=== PATIENT | male | born 1970 | race Hispanic/Latino ===

== ENCOUNTER 2018-02-16 09:40 | Inpatient (IN) | payer SELFPAY ==
[2018-02-16 10:47] LABS: Absolute Monocytes 0.9 K/uL (0.1-1.3); Absolute Neutrophil 6.8 K/uL (1.8-8.0); Basophils % 0.4 % (0-1.3); Eosinophils % 3.9 % (0-4.4); Lymphocytes % 19.6 % (15.3-44.8); MCH 33.9 pg (27.0-35.0); MCV 101.2 fL (80-100); Monocytes % 8.6 % (3.3-12.3)
--- NOTE | 2018-02-16 10:54 | RAD REPORT ---
EXAM DESCRIPTION: VASExtremity Venous Uni Ltd02/16/2018 10:47 am CLINICAL HISTORY: left leg pain and swelling. COMPARISON: 2009 FINDINGS: Echogenic material consistent with acute thrombus is present within the proximal left supe rficial femoral vein, left popliteal vein and left posterior tibial vein. Left common femoral vein is patent. IMPRESSION: Acute thrombus within the left superficial femoral, left popliteal left posterior tibial veins
[2018-02-16] MEDS ORDERED: MORPHINE 4 MG/ML SYR ONE (10:58)
[2018-02-16] MEDS ORDERED: ONDANSETRON 4 MG/2 ML VIAL ONE (10:58)
[2018-02-16 11:03] LABS: BUN Blood Urea Nitrogen 10 mg/dL (7-18); Bicarbonate 32 mmol/L (21-32); Creatine Phosphokinase 39 U/L (39-308); Glucose Level 115 mg/dL (74-106); Potassium 4.1 mmol/L (3.5-5.1); Sodium Level 139 mmol/L (136-145)
[2018-02-16 11:14] LABS: Hematocrit 60.7 % (39.6-49.0)
--- NOTE | 2018-02-16 11:26 | ER ---
Nurse's Notes [facility] Name: Dwayne Walker Jr Age: 47 yrs Sex: Male : 1970 Arrival Date: 02/16/2018 Time: 09:43 Bed 17 Private MD: Sophy Beckett Diagnosis: Acute embolism and thrombosis of left popliteal vein;Acute embolism and thrombosis of left femoral vein Presentation: 02/16 10:10 Presenting complaint: Patient states: "I have had a pain in my left leg that started in lk1 my calf for a week now. Its not getting any better. It feels like I am not getting any circulation.". Transition of care: patient was not received from another setting of care. Onset of symptoms was February 09, 2018. Risk Assessment: Do you want to hurt yourself or someone else? Patient reports no desire to harm self or others. Initial Sepsis Screen: Does the patient meet any 2 criteria? HR > 90 bpm. No. Patient's initial sepsis screen is negative. Does the patient have a suspected source of infection? No. Patient's initial sepsis screen is negative. Care prior to arrival: None. 10:10 Method Of Arrival: Wheelchair lk1 10:10 Acuity: FÉLIX 3 lk1 Historical: - Allergies: 10:11 No Known Allergies; lk1 - PMHx: 10:11 Hypertension; Chronic pain; lk1 - PSHx: 10:11 back; left leg; bilateral hips; lk1 - Immunization history:: Adult Immunizations up to date. - Social history:: Smoking status: Patient/guardian denies using tobacco. - Ebola Screening: : Patient negative for fever greater than or equal to 101.5 degrees Fahrenheit, and additional compatible Ebola Virus Disease symptoms Patient denies exposure to infectious person Patient denies travel to an Ebola-affected area in the 21 days before illness onset No symptoms or risks identified at this time. Screenin:00 Abuse screen: Denies threats or abuse. Denies injuries from another. Nutritional hb screening: No deficits noted. Tuberculosis screening: No symptoms or risk factors identified. Fall Risk None identified. Assessment: 10:20 General: Appears in no apparent distress. uncomfortable, Behavior is calm, cooperative. hb Pain: Pain currently is 10 out of 10 on a pain scale. Neuro: Level of Consciousness is awake, alert, obeys commands, Oriented to person, place, time, situation. Cardiovascular: Heart tones S1 S2 present Capillary refill < 3 seconds Patient's skin is warm and dry. Pulses are palpable in right dorsalis pedis artery and left dorsalis pedis artery. Respiratory: Airway is patent Trachea midline Respiratory effort is even, unlabored, Respiratory pattern is regular, symmetrical, Breath sounds are clear bilaterally. GI: No signs and/or symptoms were reported involving the gastrointestinal system. : No signs and/or symptoms were reported regarding the genitourinary system. EENT: No signs and/or symptoms were reported regarding the EENT system. Derm: No signs and/or symptoms reported regarding the dermatologic system. Skin is intact, is healthy with good turgor, Skin is pink, warm \\T\\ dry. Musculoskeletal: Reports pain in left leg. 11:00 Reassessment: Patient appears in no apparent distress at this time. No changes from hb previously documented assessment. Patient and/or family updated on plan of care and expected duration. Pain level reassessed. Patient is alert, oriented x 3, equal unlabored respirations, skin warm/dry/pink. 12:00 Reassessment: Patient appears in no apparent distress at this time. No changes from hb previously documented assessment. Patient and/or family updated on plan of care and expected duration. Pain level reassessed. Patient is alert, oriented x 3, equal unlabored respirations, skin warm/dry/pink. 13:00 Reassessment: Patient appears in no apparent distress at this time. No changes from hb previously documented assessment. Patient and/or family updated on plan of care and expected duration. Pain level reassessed. Patient is alert, oriented x 3, equal unlabored respirations, skin warm/dry/pink. Vital Signs: 10:12 BP 181 / 123; Pulse 109; Resp 20; Temp 97.2(TE); Pulse Ox 95% on R/A; Weight 77.11 kg lk1 (R); Height 5 ft. 8 in. (172.72 cm) (R); Pain 7/10; 10:48 BP 140 / 97; Pulse 99; Resp 17; Pulse Ox 94% on R/A; hb 11:30 BP 142 / 92; Pulse 88; Resp 18; Pulse Ox 100% on R/A; hb 12:00 BP 168 / 88; Pulse 80; Resp 16; Pulse Ox 100% on R/A; hb 13:00 BP 156 / 94; Pulse 82; Resp 17; Pulse Ox 100% on R/A; hb 10:12 Body Mass Index 25.85 (77.11 kg, 172.72 cm) lk1 ED Course: 09:43 Patient arrived in ED. mr 09:43 Oot, Oot is Private Physician. mr 10:03 Nash Jacinto PA is PHCP. jr8 10:03 Tank Boswell MD is Attending Physician. jr8 10:11 Triage completed. lk1 10:12 Arm band placed on right wrist. lk1 10:17 Claritza Diaz, RN is Primary Nurse. hb 10:35 Patient has correct armband on for positive identification. Bed in low position. Call 5 light in reach. Side rails up X 1. Pulse ox on. NIBP on. 10:35 Initial lab(s) drawn, by mo, sent to lab. Inserted saline lock: 20 gauge in right 5 antecubital area, using aseptic technique. Blood collected. 10:36 CPK Sent. mh5 10:36 Protime (+inr) Sent. mh5 10:36 Basic Metabolic Panel Sent. 5 10:36 CBC with Diff Sent. mh5 10:46 US Extremity Venous Unilateral Ltd In Process Unspecified. EDMS 11:24 Linn Alonzo MD is Hospitalizing Provider. jr8 11:39 CT completed. Patient moved back from CT. mw3 11:39 CT Chest For PE Angio In Process Unspecified. EDMS 13:45 No provider procedures requiring assistance completed. hb 13:45 Patient admitted, IV remains in place. hb Administered Medications: 11:02 Drug: morphine 4 mg Route: IVP; Site: right antecubital; hb 12:07 Follow up: Response: No adverse reaction; Pain is decreased hj 11:02 Drug: Zofran 4 mg Route: IVP; Site: right antecubital; hb 12:06 Follow up: Response: No adverse reaction; Nausea is decreased hj 11:57 Drug: Lovenox 1 mg/kg Route: Sub-Q; Site: right lower abdomen; hj 12:06 Follow up: Response: No adverse reaction hj Outcome: 11:25 Decision to Hospitalize by Provider. jr8 13:45 Admitted to Med/surg accompanied by tech, via stretcher, room 212, with chart, Report hb called to CARLO Medina 13:45 Condition: stable 13:45 Instructed on the need for admit, Demonstrated understanding of instructions. 14:01 Patient left the ED. hb Signatures: Dispatcher [employer] Gypsy Dubon mr Ophelia, Nash, VIRA CONSTANTINO jr8 Mac Diane RN RN hj Kluge, Leah, RN RN lk1 Claritza Diaz RN RN hb Martinez, [facility] Mitali Dexter 3
--- NOTE | 2018-02-16 11:26 | EDPHYS ---
Physician Documentation [facility] Name: Dwayne Walker Jr Age: 47 yrs Sex: Male : 1970 Arrival Date: 02/16/2018 Time: 09:43 Bed 17 Private MD: Sophy Beckett ED Physician Tank Boswell HPI: 02/16 11:22 This 47 yrs old Male presents to ER via Wheelchair with complaints of Leg Pain.jr8 11:22 The complaints affect the left hamstring and left calf. Onset: The symptoms/episode jr8 began/occurred gradually, 1 week(s) ago, and became worse and became persistent. Modifying factors: The symptoms are alleviated by elevating leg, the symptoms are aggravated by weight bearing. Associated signs and symptoms: The patient has no apparent associated signs or symptoms. Severity of symptoms: At their worst the symptoms were moderate, in the emergency department the symptoms are unchanged. The patient has not experienced similar symptoms in the past. The patient has not recently seen a physician. Historical: - Allergies: 10:11 No Known Allergies; lk1 - PMHx: 10:11 Hypertension; Chronic pain; lk1 - PSHx: 10:11 back; left leg; bilateral hips; lk1 - Immunization history:: Adult Immunizations up to date. - Social history:: Smoking status: Patient/guardian denies using tobacco. - Ebola Screening: : Patient negative for fever greater than or equal to 101.5 degrees Fahrenheit, and additional compatible Ebola Virus Disease symptoms Patient denies exposure to infectious person Patient denies travel to an Ebola-affected area in the 21 days before illness onset No symptoms or risks identified at this time. ROS: 11:22 ENT: Negative for injury, pain, and discharge, Neck: Negative for injury, pain, and jr8 swelling, Cardiovascular: Negative for chest pain, palpitations, and edema, Respiratory: Negative for shortness of breath, cough, wheezing, and pleuritic chest pain, Abdomen/GI: Negative for abdominal pain, nausea, vomiting, diarrhea, and constipation, Back: Negative for injury and pain, Skin: Negative for injury, rash, and discoloration, Neuro: Negative for headache, weakness, numbness, tingling, and seizure. 11:22 MS/extremity: Positive for pain, swelling, tenderness, of the left leg. Exam: 11:22 Eyes: Pupils equal round and reactive to light, extra-ocular motions intact. Lids and jr8 lashes normal. Conjunctiva and sclera are non-icteric and not injected. Cornea within normal limits. Periorbital areas with no swelling, redness, or edema. ENT: Nares patent. No nasal discharge, no septal abnormalities noted. Tympanic membranes are normal and external auditory canals are clear. Oropharynx with no redness, swelling, or masses, exudates, or evidence of obstruction, uvula midline. Mucous membranes moist. Neck: Trachea midline, no thyromegaly or masses palpated, and no cervical lymphadenopathy. Supple, full range of motion without nuchal rigidity, or vertebral point tenderness. No Meningismus. Cardiovascular: Regular rate and rhythm with a normal S1 and S2. No gallops, murmurs, or rubs. Normal PMI, no JVD. No pulse deficits. Respiratory: Lungs have equal breath sounds bilaterally, clear to auscultation and percussion. No rales, rhonchi or wheezes noted. No increased work of breathing, no retractions or nasal flaring. Abdomen/GI: Soft, non-tender, with normal bowel sounds. No distension or tympany. No guarding or rebound. No evidence of tenderness throughout. Back: No spinal tenderness. No costovertebral tenderness. Full range of motion. Skin: Warm, dry with normal turgor. Normal color with no rashes, no lesions, and no evidence of cellulitis. Neuro: Awake and alert, GCS 15, oriented to person, place, time, and situation. Cranial nerves II-XII grossly intact. Motor strength 5/5 in all extremities. Sensory grossly intact. Cerebellar exam normal. Normal gait. 11:22 Musculoskeletal/extremity: Extremities: grossly normal except: noted in the left calf: pain, swelling, tenderness, ROM: intact in all extremities, Circulation is intact in all extremities. Pulses: noted to be 2+ in the right radial artery, right posterior tibial artery, right dorsalis pedis artery, left radial artery, left posterior tibial artery and left dorsalis pedis artery, Sensation intact. DVT Exam: pain, of the left leg, swelling, of the left leg, tenderness, of the left leg, Calves: are not equal in size: left is larger than right. 12:10 ECG was reviewed by the Attending Physician. jr8 Vital Signs: 10:12 BP 181 / 123; Pulse 109; Resp 20; Temp 97.2(TE); Pulse Ox 95% on R/A; Weight 77.11 kg lk1 (R); Height 5 ft. 8 in. (172.72 cm) (R); Pain 7/10; 10:48 BP 140 / 97; Pulse 99; Resp 17; Pulse Ox 94% on R/A; hb 11:30 BP 142 / 92; Pulse 88; Resp 18; Pulse Ox 100% on R/A; hb 12:00 BP 168 / 88; Pulse 80; Resp 16; Pulse Ox 100% on R/A; hb 13:00 BP 156 / 94; Pulse 82; Resp 17; Pulse Ox 100% on R/A; hb 10:12 Body Mass Index 25.85 (77.11 kg, 172.72 cm) lk1 MDM: 10:03 Patient medically screened. 8 11:22 Data reviewed: vital signs, nurses notes, lab test result(s), EKG, radiologic studies, jr8 CT scan, and as a result, I will admit patient. Data interpreted: Pulse oximetry: on room air is 94 %. Interpretation: acceptable. Counseling: I had a detailed discussion with the patient and/or guardian regarding: the historical points, exam findings, and any diagnostic results supporting the discharge/admit diagnosis, lab results, radiology results, the need for further work-up and treatment in the hospital. Physician consultation: Linn Alonzo MD was called at 11:24, was contacted at 11:24, regarding admission, to the telemetry unit. consult, patient's condition, and will see patient. 02/16 10:17 Order name: CBC with Diff; Complete Time: 11:14 8 02/16 10:17 Order name: Basic Metabolic Panel; Complete Time: 11:14 [facility] 02/16 10:17 Order name: Protime (+inr); Complete Time: 11:41 8 02/16 10:17 Order name: CPK; Complete Time: 11:14 [facility] 02/16 11:48 Order name: Basic Metabolic Panel EDID 02/16 11:48 Order name: Basic Metabolic Panel [facility] 02/16 10:19 Order name: US Extremity Venous Unilateral Ltd; Complete Time: 10:58 02/16 10:57 Order name: CT Chest For PE Angio; Complete Time: 11:54 [facility] 02/16 11:48 Order name: CBC with Automated Diff EDID 02/16 11:48 Order name: CBC with Automated Diff EDID 02/16 11:48 Order name: Protime (+INR) EDMS 02/16 11:48 Order name: Protime (+INR) EDID 02/16 11:48 Order name: Protime (+INR) EDID 02/16 11:48 Order name: Protime (+INR) EDID 02/16 10:17 Order name: IV; Complete Time: 10:36 [facility] 02/16 11:10 Order name: Labs - recollect needed; Complete Time: 11:19 ag 02/16 11:30 Order name: EKG; Complete Time: 11:31 [facility] 02/16 11:30 Order name: EKG - Nurse/Tech; Complete Time: 12:02 [facility] 02/16 11:48 Order name: Heart Healthy; Complete Time: 12:02 EDMS EC:10 Rate is 90 beats/min. Rhythm is regular, Normal Sinus Rhythm. QRS [place] is Normal. [place] jr8 interval is normal at 142 msec. QRS interval is normal at 88 msec. QT interval is prolonged at 459 msec. No Q waves. T waves are Flattened in lead III. No ST changes noted. Clinical impression: NSR w/ Non-specific ST/T Changes. Interpreted by me. Reviewed by me. Administered Medications: 11:02 Drug: morphine 4 mg Route: IVP; Site: right antecubital; hb 12:07 Follow up: Response: No adverse reaction; Pain is decreased hj 11:02 Drug: Zofran 4 mg Route: IVP; Site: right antecubital; hb 12:06 Follow up: Response: No adverse reaction; Nausea is decreased hj 11:57 Drug: Lovenox 1 mg/kg Route: Sub-Q; Site: right lower abdomen; hj 12:06 Follow up: Response: No adverse reaction hj Disposition: 02/16/18 11:25 Hospitalization ordered by Linn Alonzo for Inpatient Admission. Preliminary diagnosis are Acute embolism and thrombosis of left popliteal vein, Acute embolism and thrombosis of left femoral vein. - Bed requested for Telemetry/MedSurg (Inpatient). - Status is Inpatient Admission. hb - Condition is Stable. - Problem is new. - Symptoms have improved. UTI on Admission? No Addendum: 02/23/2018 11:22 Co-signature as Attending Physician, Tank Boswell MD I agree with the assessment and k dr plan of care. Signatures: Dispatcher [employer] EDMS Tank Boswell MD MD [facility] Nash Jacinto PA PA jr8 GaSofi ag Mac Diane, RN RN Gely Pino RN RN 1 Claritza Diaz RN RN hb Corrections: (The following items were deleted from the chart) 02/16 13:18 11:25 Hospitalization Ordered by Linn Alonzo MD for Inpatient Admission. Preliminary ag diagnosis is Acute embolism and thrombosis of left popliteal vein; Acute embolism and thrombosis of left femoral vein. Bed requested for Telemetry/MedSurg (Inpatient). Status is Inpatient Admission. Condition is Stable. Problem is new. Symptoms have improved. UTI on Admission? No. jr8 14:01 13:18 02/16/2018 11:25 Hospitalization Ordered by Linn Alonzo MD for Inpatient hb Admission. Preliminary diagnosis is Acute embolism and thrombosis of left popliteal vein; Acute embolism and thrombosis of left femoral vein. Bed requested for Telemetry/MedSurg (Inpatient). Status is Inpatient Admission. Condition is Stable. Problem is new. Symptoms have improved. UTI on Admission? No. ag
[2018-02-16 11:38] LABS: Protime INR 1.11
[2018-02-16] MEDS ORDERED: HYDROCODONE/APAP 7.5/325 MG TAB PO PRN (11:45)
[2018-02-16] MEDS ORDERED: ACETAMINOPHEN 500 MG TAB PO PRN (11:45)
[2018-02-16] MEDS ORDERED: ONDANSETRON 4 MG/2 ML VIAL IV PRN (11:45)
--- NOTE | 2018-02-16 11:52 | RAD REPORT ---
EXAM DESCRIPTION: CT - Chest For Pe Angio - 02/16/2018 11:39 am CLINICAL HISTORY: Chest pain COMPARISON: None. TECHNIQUE: Dynamically enhanced axial 3 mm thick images of the chest were obtained during administra tion of <100> mL Isovue 370 IV contrast. Coronal and oblique reconstruction images were generated and reviewed. Exam utilizes a protocol for optimal evaluation of pulmonary arterial tree. Maximum intensity projections 3D imaging was utilized All CT scans are performed using dose optimization technique as appropriate and may include automated exposure control or mA/KV adjustment according to patient size. FINDINGS: Thrombus is present within right lower lobe segmental and subsegmental arterial branches. No thrombus is seen within the main, left main, right main and left pulmonary arteries. A thoracic aortic aneurysm is not noted. A pleural effusion is not seen. A pericardial effusion is not seen. A 29 x 12 millimeter opacity is present within the right lower lobe abutting the pleural surface. IMPRESSION: Right lower lobe pulmonary emboli 29 millimeter right lower lobe opacity may represent an infarct
[2018-02-16] MEDS: NA CHLORIDE 0.9% 1,000 ML IV SCH ×2 (12:00→23:24)
[2018-02-16] MEDS ORDERED: ENOXAPARIN 80 MG/0.8 ML SQ ONE (12:05)
[2018-02-16 14:47] VITALS: BMI 25.8
[2018-02-16] MEDS ORDERED: OXYCODONE HCL 15 MG PO PRN (15:26)
[2018-02-16 15:53] LABS: Hematocrit 56.5 % (39.6-49.0)
[2018-02-16] MEDS: LISINOPRIL 20 MG TAB PO SCH (16:48)
[2018-02-16] MEDS: GABAPENTIN 400 MG CAP PO SCH ×2 (16:49→21:27)
[2018-02-16] MEDS: OXYCODONE HCL 5 MG TAB PO PRN ×2 (16:49→23:21)
[2018-02-16] MEDS ORDERED: FOLIC ACID 1 MG TABLET PO ONE (17:00)
[2018-02-16] MEDS ORDERED: THIAMINE HCL 100 MG TABLET PO ONE (17:00)
[2018-02-16] MEDS ORDERED: GABAPENTIN 400 MG CAP PO SCH (21:00)
[2018-02-16] MEDS ORDERED: HOME MED 1 EA UNK (Gabapentin [Gabapentin] 800 MG) PO SCH (21:00)
[2018-02-16] MEDS: ENOXAPARIN 80 MG/0.8 ML SQ SCH (21:28)
[2018-02-16] MEDS: CARVEDILOL 6.25 MG TAB PO SCH (21:28)
--- NOTE | 2018-02-17 01:42 | HP ---
Date of Admission: 02/16/2018 Chief Complaint: Left leg pain and shortness of breath. Machining Engineer: Dr. Morales with Pulmonology. Primary Care Physician: None. History Of Present Illness: The patient is a 47-year-old male with past medical history of hypertens ion, neuropathy, chronic pain syndrome from work-related accident in 2008, who comes in with 1-/2 we ek of left leg calf pain, redness, swelling that traveled up to his thigh related with some shortness of breath. The patient's symptoms are constant, moderate, progressively worsening. He denies any a lleviating factors. The patient's pain was aggravated with walking. The patient finally after much deliberation and encouragement by his friends, came to the ER for further evaluation. When the patie nt came in, his vital signs were stable. He was afebrile. His workup; however, revealed hemoglobin of 20, hematocrit of 60. Imaging studies including Doppler venous ultrasound showed acute thrombus w ithin the left superficial femoral and left popliteal and left posterior tibial veins. CT angio ches t was also done which showed right lower lobe pulmonary emboli and 29 mm right lower lobe opacity may represent infarct. The patient was referred for admission for deep venous thrombosis and PE. When s een in the ER, he was awake, alert, oriented x3, in some mild distress due to pain. Past Medical History: Hypertension, chronic pain syndrome, neuropathy. Past Surgical History: The patient had surgery in his hip, back and left leg due to trauma after 25 feet fall from work related injury in 2008. Allergies: NO KNOWN DRUG ALLERGIES. Medications: List reviewed. Social History: The patient smokes approximately 1 pack per week. Drinks 2 shots of liquor every ot her day. Denies any beer. No illicit drug use. Family History: Diabetes, congestive heart failure in the father and mom had high blood pressure and [place]. Review of Systems: Eleven-point system reviewed, negative except as per HPI. Physical Examination: Vital Signs: Temperature 97.2, heart rate 109, blood pressure 181/123, respirations 20, O2 95% on ro om air. General: Awake, alert, oriented x3. Some mild distress. HEENT: Normocephalic, atraumatic. PERRLA. EOMI. Moist mucous membranes. Oropharynx is clear. No rmal dentition. Conjunctivae anicteric. Neck: Supple. No JVD. Trachea midline. CV: S1, S2. No murmurs. Regular rate and rhythm. Peripheral pulses are present. Respiratory: Clear to auscultation bilaterally. Some diminished breath sounds on the right lower lo be. No wheezing. No stridor. No use of accessory muscles. Gastrointestinal: Abdomen is soft, nontender, nondistended. Positive bowel sounds. No guarding or rigidity. No palpable masses. Extremities: No clubbing, cyanosis or edema. No calf tenderness. Neurologic: Cranial nerves 2 through 12 intact grossly. No focal neurological deficit. Speech is n ormal. Skin: No rashes. Normal skin turgor. Musculoskeletal: The patient does have some tenderness on the left thigh area and calf. Psych: Mood is okay. Affect is full. Insight and judgment are good. Laboratory Data: WBC 10.1, H and H 20.3, 60.7, platelets 264. INR 1.11. Sodium 139, potassium 4.1, chloride 102, CO2 32, BUN 10, creatinine 0.8, glucose 115, calcium 9.1, CK 39. CT angio chest shows right lower lobe pulmonary emboli, 29 mm right lower lobe opacity, may represent infarct. Doppler s onogram shows acute thrombus within the left superficial femoral, popliteal and posterior tibial vein s. Assessment: A 47-year-old male with, 1.Acute right pulmonary embolism. 2.Acute deep venous thrombosis in the superficial femoral, popliteal, and posterior tibial veins. 3.Essential hypertension. 4.Chronic pain syndrome. 5.Neuropathy. Plan: Admit the patient to Med-Surg, place as inpatient. We will start on anticoagulation with 1 mg /kg Lovenox q.12, placed on Coumadin. The patient is uninsured, will likely not be able to take anti coagulants due to financial reasons. We will consult Dr. Morales with Pulmonology. We will obtain echocardiogram to rule out RV strain, likely this is a provoked event given the patient's history of trauma to that leg; however, we will consider Hematology evaluation as outpatient to rule out hyperco agulable state. The patient also has alcohol dependence. We will start on thiamine and folate. Karen ch for signs of withdrawal. We will repeat hemoglobin, hematocrit level, start on IV fluids. SA/MODL Voice ID: [id number]
[2018-02-17 05:47] LABS: Absolute Lymphocytes (CBC) 2.1 K/uL (0.7-4.9); Absolute Monocytes 0.7 K/uL (0.1-1.3); Absolute Neutrophil 4.5 K/uL (1.8-8.0); Basophils % 1.1 % (0-1.3); Eosinophils % 8.3 % (0-4.4); Hematocrit 52.3 % (39.6-49.0); Lymphocytes % 26.2 % (15.3-44.8); MCH 34.1 pg (27.0-35.0); MCV 103.2 fL (80-100); MPV 8.1 fL (7.6-11.3); Monocytes % 8.9 % (3.3-12.3); RBC Red Blood Cell Count 5.07 M/uL (4.33-5.43)
[2018-02-17 05:49] LABS: Protime INR 1.09
[2018-02-17 06:04] LABS: BUN Blood Urea Nitrogen 9 mg/dL (7-18); Bicarbonate 25 mmol/L (21-32); Glucose Level 93 mg/dL (74-106); Potassium 4.1 mmol/L (3.5-5.1); Sodium Level 140 mmol/L (136-145)
--- NOTE | 2018-02-17 06:26 | EKG ---
Test Date: 2018-02-16 Test Time: 12:01:40 Capacity Planning Analyst: BRIANA MEASUREMENT RESULTS: Intervals: Rate: 90 KS: 142 QRSD: 88 QT: 376 QTc: 459 [place]: P: 28 KS: 142 QRS: -9 T: 14 INTERPRETIVE STATEMENTS: Normal sinus rhythm Moderate voltage criteria for LVH, may be normal variant Borderline ECG Compared to ECG 11/04/2004 09:20:00 Left ventricular hypertrophy now present Electronically Signed On 02-17-18 06:25:36 CDT by Sundar Santos
[2018-02-17] MEDS: GABAPENTIN 400 MG CAP PO SCH ×3 (08:27→21:28)
[2018-02-17] MEDS: OXYCODONE HCL 5 MG TAB PO PRN ×3 (08:29→21:28)
[2018-02-17] MEDS: FOLIC ACID 1 MG TABLET PO SCH (08:29)
[2018-02-17] MEDS: LISINOPRIL 20 MG TAB PO SCH (08:29)
[2018-02-17] MEDS: THIAMINE HCL 100 MG TABLET PO SCH (08:30)
[2018-02-17] MEDS: ENOXAPARIN 80 MG/0.8 ML SQ SCH ×2 (08:31→21:27)
[2018-02-17] MEDS: CARVEDILOL 6.25 MG TAB PO SCH (08:34)
[2018-02-17] MEDS ORDERED: LABETALOL HCL 100 MG/20 ML IV PRN (10:03)
[2018-02-17] MEDS: NA CHLORIDE 0.9% 1,000 ML IV SCH ×3 (10:36→21:30)
--- NOTE | 2018-02-17 12:21 | PN ---
Date of Progress Note: 02/17/2018 Subjective: The patient is seen and examined. Chart reviewed and case discussed with RN and Dr. Dra landis. The patient states he is still having pain in his lower extremity. Shortness of breath has improved. Review of Systems: Negative except as above. Medications: List reviewed. Physical Examination: Vital Signs: Temperature 97.6, heart rate 78, blood pressure 152/104, respirations 18, O2 97% on maria c m air. General: Awake, alert, oriented x3. CV: S1, S2. No murmurs. Regular rate and rhythm. Peripheral pulses present. Respiratory: Clear to auscultation bilaterally. No wheezing. No stridor. Gastrointestinal: Abdomen is soft, nontender. Positive bowel sounds. Distended. Extremities: No clubbing, cyanosis. Mild edema of the left lower extremity. Neurologic: Nonfocal. Skin: Erythema and swelling of the left lower extremity. Mild tenderness to palpation. Laboratory Data: Sodium 140, potassium 4.1, chloride 105, CO2 25, BUN 9, creatinine 0.5, glucose 93, calcium 8. INR 1.09. WBC 8.2, H and H 17.3 and 52.4, MCV 103.2, platelets 241. Assessment And Plan: A 47-year-old male with: 1.Right-sided pulmonary embolism. 2.Acute deep venous thrombosis in the superficial, femoral, popliteal, and posterior tibial veins on the left. 3.Essential hypertension. 4.Noncompliance. 5.Chronic pain syndrome. 6.Neuropathy. 7.Secondary polycythemia, likely secondary to his history of smoking. 8.Nicotine dependence with cigarette smoking, uncomplicated. 9.Gastrointestinal and deep venous thrombosis prophylaxis with PPI and Lovenox. 10.Alcohol dependence. Continue folate and thiamine. No signs of withdrawal. Plan: Hematology consultation. Spoke with Dr. Alvarez at length. He recommends newer anticoagul ation agents; however, the patient is unfunded, does not have any insurance. He may not be able to a fford the new anticoagulation agents. We will discuss with social workers regarding prescription ass istant program versus coupon cards for Xarelto or Eliquis. For now, the patient will be continued on Lovenox and start on Coumadin; however, the patient will need to establish care with primary care ph ysician to have INR checked. The patient was counseled extensively regarding compliance. He voiced understanding. He understands that this clot if not treated may end up causing further more morbidit y and even mortality and . /PATRICK Voice ID: [id number] Report ID: [id number]
--- NOTE | 2018-02-17 13:19 | ECHO ---
HEIGHT: 5 ft 8 in WEIGHT: 170 lb 0 oz DATE OF STUDY: 02/17/[address]: Linn Alonzo MD 2-DIMENSIONAL: YES M.MODE: YES DOPPLER: YES COLOR FLOW: YES TDS: PORTABLE: DEFINITY: BUBBLE STUDY: DIAGNOSIS: PULMONARY EMBOLISM CARDIAC HISTORY: CATHERIZATION: NO SURGERY: NO PROSTHETIC VALVE: NO PACEMAKER: NO MEASUREMENTS (cm) DIASTOLIC (NORMALS) SYSTOLIC (NORMALS) IVSd 1.1 (0.6-1.2) LA Diam 4.1 (1.9-4.0) LVEF 60-69% LVIDd 5.2 (3.5-5.7) LVIDs 3.8 (2.0-3.5) %FS 27% LVPWd 1.1 (0.6-1.2) Ao Diam 2.9 (2.0-3.7) 2 DIMENSIONAL ASSESSMENT: RIGHT ATRIUM: NORMAL LEFT ATRIUM: NORMAL RIGHT VENTRICLE: NORMAL LEFT VENTRICLE: NORMAL TRICUSPID VALVE: NORMAL MITRAL VALVE: NORMAL PULMONIC VALVE: NORMAL AORTIC VALVE: NORMAL PERICARDIAL EFFUSION: NONE AORTIC ROOT: NORMAL LEFT VENTRICULAR WALL MOTION: NORMAL DOPPLER/COLOR FLOW: PHYSIOLOGIC TRICUSPID REGURGITATION. NORMAL RIGHT VENTRICULAR SYSTOLIC PRESSURE. COMMENTS: NORMAL 2-DIMENSIONAL ECHOCARDIOGRAM WITH DOPPLER. TECHNOLOGIST: DANA MACK
--- NOTE | 2018-02-17 14:12 | P.CNS ---
Date of Consult: 02/17/18 Reason for Consult: DVT with pulmonary embolism Chief Complaint: Left-sided leg pain History of Present Illness: Patient is 47 years of age started having some pain in his left leg was started in the calf was fine when he was lying supine worse when on standing up severe pain lasted for 4 days resolved and reoccurred again inside noticing pain in his left thigh a he also has a swelling in the left upper lateral thigh ABGs been present there for a year also feels like she has a knot in the right groin patient denies any shortness of breath no cough sputum hemoptysis the chest pain He leads a sedentary lifestyle patient is debilitated from his multiple orthopedic injuries secondary to a fall sustained from a roof in 2008 he is currently unemployed and taking narcotics smokes Allergies No Known Drug Allergies Allergy (Verified 02/16/18 18:15) Unknown No Allergy (Uncoded 02/16/18 18:15) Unknown Home Medications: Carvedilol [Coreg] 6.25 mg PO BID 02/16/18 Gabapentin 800 mg PO TID 02/16/18 Lisinopril [Prinivil] 20 mg PO DAILY 02/16/18 Oxycodone HCl 15 mg PO Q6HR PRN 02/16/18 - Past Medical/Surgical History Diabetic: No -: htn -: scoliosos -: chronic pain -: fell through roof, multiple fractures -: bilateral hip repair -: bilateral leg feet fracture repairs -: lower spine fractures 13 areas - Family History Mother History Unknown: Yes Medical History: Hypertension Father Medical History: Heart disease - Social History Smoking Status: Current every day smoker Alcohol use: Yes CD- Drugs: No Caffeine use: No Place of Residence: Home Review of Systems General: Weakness Musculoskeletal: Leg Pain Integumentary: Other (Patient has a soft fluctuant mass in the left upper hip region) Physical Examination Temp Pulse Resp BP Pulse Ox 98.2 F 71 16 159/95 H 92 02/17/18 12:00 02/17/18 12:00 02/17/18 12:00 02/17/18 12:00 02/17/18 12:00 General: Alert, Oriented x3 HEENT: Atraumatic Neck: Supple Respiratory: Clear to auscultation bilaterally Cardiovascular: No edema, Normal S1 S2 Gastrointestinal: Normal bowel sounds, Soft and benign Musculoskeletal: Other (About 4 cm fluctuant lesion in the left upper hip slight tenderness skin overlying is normal) - Problems (1) Pulmonary embolism Onset Date: 02/17/18 Current Visit: Yes Status: Acute Plan: Patient is 47 years of age admitted with left-sided DVT and pulmonary embolism patient has extensive thrombosis of the left leg in addition to her right lung pulmonary embolism and possibly an infarct he denies any shortness of breath pill as is pain in the left leg patient does not have any insurance I agree with Lovenox and Coumadin in addition he has hypertension added diuretic patient is hemodynamically stable echocardiogram normal no indications of thrombolytics therapy Patient is to continue with Coumadin possible lifelong no recent precipitating factors for DVT and PE maintain INR between 2 and 2.5 Qualifiers: Acute cor pulmonale presence: without acute cor pulmonale (2) Polycythemia Current Visit: Yes Status: Acute Plan: Patient is the blood count was elevated is declining with IV fluids probably secondary to heme concentration. I have also added liver function testing ultrasound of the abdomen to check for splenomegaly urinalysis serum erythropoietin level
[2018-02-17] MEDS: hydroCHLOROthiazide 12.5 MG CAP PO SCH (15:08)
[2018-02-17 15:09] LABS: Blood Gas Oxyhemoglobin 93.6 % (94-97); Blood O2 Saturation 95.8 % (92-98.5)
[2018-02-17 16:07] LABS: Albumin 2.9 g/dL (3.4-5.0); Bilirubin Direct 0.3 mg/dL (0-0.2); Bilirubin Total 1.1 mg/dL (0.2-1.0); Protein, Total 7.6 g/dL (6.4-8.2)
[2018-02-17] MEDS: WARFARIN SODIUM 5 MG TAB PO SCH (18:16)
[2018-02-17 18:28] LABS: Urine Appearance CLEAR; Urine Bilirubin NEGATIVE (NEG); Urine Blood NEGATIVE (NEG); Urine Color YELLOW; Urine Glucose NEGATIVE (NEG); Urine Protein NEGATIVE (NEG)
[2018-02-17 18:38] LABS: Urine Microscopic Reflex NO UMIC
[2018-02-18] MEDS: OXYCODONE HCL 5 MG TAB PO PRN ×3 (04:57→18:06)
[2018-02-18] MEDS: NA CHLORIDE 0.9% 1,000 ML IV SCH ×3 (04:57→23:37)
[2018-02-18 05:27] LABS: Protime INR 1.02
[2018-02-18 05:37] LABS: ALT/SGPT 57 U/L (12-78); AST/SGOT 57 U/L (15-37); Albumin 3.1 g/dL (3.4-5.0); Alkaline Phosphatase 131 U/L (45-117); BUN Blood Urea Nitrogen 8 mg/dL (7-18); Bicarbonate 27 mmol/L (21-32); Bilirubin Total 1.1 mg/dL (0.2-1.0); Glucose Level 100 mg/dL (74-106); Potassium 4.4 mmol/L (3.5-5.1); Protein, Total 8.1 g/dL (6.4-8.2); Sodium Level 139 mmol/L (136-145)
[2018-02-18 05:40] LABS: Absolute Lymphocytes (CBC) 1.8 K/uL (0.7-4.9); Absolute Monocytes 0.7 K/uL (0.1-1.3); Absolute Neutrophil 4.9 K/uL (1.8-8.0); Basophils % 0.7 % (0-1.3); Eosinophils % 6.4 % (0-4.4); Hematocrit 57.5 % (39.6-49.0); MCH 33.9 pg (27.0-35.0); MCV 101.8 fL (80-100); Monocytes % 8.6 % (3.3-12.3); RBC Red Blood Cell Count 5.65 M/uL (4.33-5.43)
[2018-02-18] MEDS: FOLIC ACID 1 MG TABLET PO SCH (11:04)
[2018-02-18] MEDS: GABAPENTIN 400 MG CAP PO SCH ×3 (11:05→20:57)
[2018-02-18] MEDS: LISINOPRIL 20 MG TAB PO SCH (11:05)
[2018-02-18] MEDS: CYANOCOBALAMIN 1,000 MCG TAB PO SCH (11:06)
[2018-02-18] MEDS: ENOXAPARIN 80 MG/0.8 ML SQ SCH ×2 (11:07→20:57)
[2018-02-18] MEDS: hydroCHLOROthiazide 12.5 MG CAP PO SCH (11:07)
[2018-02-18] MEDS: THIAMINE HCL 100 MG TABLET PO SCH (11:18)
--- NOTE | 2018-02-18 13:01 | RAD REPORT ---
EXAM DESCRIPTION: US - Abdomen Exam Complete - 02/18/2018 12:45 pm CLINICAL HISTORY: Abdominal pain, polycythemia COMPARISON: CT chest February 16 FINDINGS: Gallbladder size is normal. No gallstones, wall thickening or pericholecystic fluid. Commo n bile duct is normal with no common duct stone identified. Liver is prominent in size at 19 cm maxim um dimension. No focal liver parenchymal lesion or capsular nodularity seen. No splenomegaly or focal splenic finding. Spleen is 11 cm in maximum dimension. The pancreas is obscured No hydronephrosis or suspicious mass in either kidney. Aorta and IVC are obscured. No ascites or bulky lymphadenopathy. IMPRESSION: No gallbladder or biliary tree dilatation. Liver is prominent at 19 cm. No focal liver lesion. Normal spleen. Pancreas aorta and IVC are too obscured for assessment.
--- NOTE | 2018-02-18 13:19 | PN ---
Date of Progress Note: 02/18/2018 Subjective: The patient is seen and examined. Chart reviewed and case discussed with RN and Dr. Micheal mclaughlin. Spoke with Dr. Alvarez yesterday concerning DVT. The patient complaining of knot on the s laury of his left thigh in the posterior aspect. Review of Systems: Negative except as above. Medications: List reviewed. Physical Examination: Vital Signs: Temperature 97.5, heart rate 76, blood pressure 131/84, respirations 16, O2 96% on room air. General: Awake, alert, oriented x3, in some mild distress. CV: S1, S2. No murmurs. Regular rate and rhythm. Peripheral pulses present. Respiratory: Clear to auscultation bilaterally. No wheezing. Gastrointestinal: Abdomen is soft, nontender, nondistended. Positive bowel sounds. Extremities: No clubbing, cyanosis. Left lower extremity is somewhat edematous compared to right. Skin: The patient has a soft mobile nodular lesion of the posterior aspect of the left thigh, has be en present for years. Neurologic: Nonfocal. Laboratory Data: Sodium 139, potassium 4.4, chloride 106, CO2 27, BUN 8, creatinine 0.6, glucose 100 , calcium 8.6, magnesium 2.1, AST 57, ALT 57, albumin 3.1, INR 1.02. WBC 8, H and H 19.1, 57.5. MCV 101.8, platelets 269. Echocardiogram shows EF of 60%-69%, normal right ventricular systolic pressur e. Assessment And Plan: 1.A 47-year-old male with acute pulmonary embolism, right lower lobe. 2.Acute deep venous thrombosis, left superficial femoral, popliteal, and posterior tibial veins. We will continue with Lovenox and bridged to Coumadin. INR is still low. We will reiterate Coumadin d iet and increase Coumadin dose. 3.Essential hypertension, stable. 4.Chronic pain syndrome. The patient on oxycodone, requesting more pain medications. The patient w as started on IV pain medications. 5.Neuropathy. 6.Elevated liver enzymes. 7.Secondary polycythemia. 8.Nicotine dependence with cigarette smoking, uncomplicated. 9.Left thigh nodular lesion likely lipoma, may possibly be hematoma. We will obtain surgical consul tation. /PATRICK Voice ID: [id number] Report ID: [id number]
[2018-02-18] MEDS: MORPHINE 2 MG/ML SYR IV PRN (14:25)
--- NOTE | 2018-02-18 17:22 | CON ---
Date of Consultation: 02/18/2018 Diagnosis: Mass over the left thigh. History Of Present Illness: This is a case of a 47-year-old patient with multiple medical problems, with a history of that was left calf tenderness, come to the ER, diagnosed with acute DVT. During th e workup, patient also found to have a lump on the left thigh region that was hurting him in the subc utaneous tissue. Past Medical History: Hypertension and neuropathy. Past Surgical History: Hip surgery and work related injuries in the past over the left lower extremi ty. Allergies: NONE. Social History: He smokes about a pack a week and drink alcohol occasionally. Family History: Includes heart disease, high blood pressure, and diabetes. Review of Systems: Constitutional: Denies any fever. Respiratory: Denies any shortness of breath. Gastrointestinal: Denies any abdominal pain. Extremities: As per H and P. Physical Examination: General: The patient is awake and alert. HEENT: Pupils anicteric. Neck: Supple. Chest: Clear. Abdomen: Soft and depressible. No guarding or rebound. No peritoneal signs. Rectal: Deferred. Genitalia: Fair. Extremities: Left lower extremity, on the area of the lateral thigh patient has about a 4 x 4 cm are a of subcutaneous mass. There are no bruises. No skin indentation, trauma, laceration, or rash. I have noticed all through the skin in lower extremity, patient has multiple subcutaneous masses. ____ see any bruises in that area. He stated that subcutaneous masses has been more caleb n the other one, although he had made he has them for all over his body and for a long time. No fluc tuance is present. Laboratory Data: Blood work shows a WBC count of 10 with hemoglobin of 20.3. INR is 1.02. Albumin is 3.1. Abdominal ultrasound shows no gallbladder biliary tree dilatation. Pancreas, aorta, and inferior gilma a cava, I cannot be evaluated. Assessment: This is a 47-year-old patient with DVTs, apparently as per patient this is a first that happened. This has been treated by the medical doctors here, he has many on his belly, but this is h as been hurting a little bit and they want to make sure that is not an acute event. It looked like a soft-tissue tumor, right now his need for treatment of his DVTs will be a priority. Whenever he imp roves, this is taking then eventually we will address that issue with the biopsy if it sti ll bothering him. He understood. At this moment no surgical intervention planned. SHARON/PATRICK Voice ID: [id number] Report ID: [id number]
[2018-02-18] MEDS: WARFARIN SODIUM 5 MG TAB PO SCH (18:05)
[2018-02-18] MEDS: CARVEDILOL 6.25 MG TAB PO SCH (20:58)
[2018-02-19] MEDS: OXYCODONE HCL 5 MG TAB PO PRN ×3 (00:03→20:14)
[2018-02-19 05:39] LABS: Absolute Lymphocytes (CBC) 2.1 K/uL (0.7-4.9); Absolute Neutrophil 4.7 K/uL (1.8-8.0); Eosinophils % 5.2 % (0-4.4); Lymphocytes % 25.1 % (15.3-44.8); MCV 103.5 fL (80-100); MPV 7.9 fL (7.6-11.3); Monocytes % 11.7 % (3.3-12.3); RBC Red Blood Cell Count 5.02 M/uL (4.33-5.43)
[2018-02-19 05:45] LABS: ALT/SGPT 59 U/L (12-78); AST/SGOT 53 U/L (15-37); Albumin 2.9 g/dL (3.4-5.0); Alkaline Phosphatase 104 U/L (45-117); BUN Blood Urea Nitrogen 13 mg/dL (7-18); Bicarbonate 32 mmol/L (21-32); Bilirubin Total 0.9 mg/dL (0.2-1.0); Glucose Level 90 mg/dL (74-106); Potassium 4.6 mmol/L (3.5-5.1); Protein, Total 7.5 g/dL (6.4-8.2); Sodium Level 138 mmol/L (136-145)
[2018-02-19 06:20] LABS: Protime INR 1.17
[2018-02-19] MEDS: NA CHLORIDE 0.9% 1,000 ML IV SCH ×3 (06:39→20:21)
[2018-02-19] MEDS: ENOXAPARIN 80 MG/0.8 ML SQ SCH ×2 (09:33→20:14)
[2018-02-19] MEDS: hydroCHLOROthiazide 12.5 MG CAP PO SCH (09:35)
[2018-02-19] MEDS: GABAPENTIN 400 MG CAP PO SCH ×3 (09:35→20:14)
[2018-02-19] MEDS: THIAMINE HCL 100 MG TABLET PO SCH (09:35)
[2018-02-19] MEDS: LISINOPRIL 20 MG TAB PO SCH (09:36)
[2018-02-19] MEDS: CARVEDILOL 6.25 MG TAB PO SCH ×2 (09:36→20:15)
[2018-02-19] MEDS: FOLIC ACID 1 MG TABLET PO SCH (09:36)
[2018-02-19] MEDS: CYANOCOBALAMIN 1,000 MCG TAB PO SCH (09:37)
[2018-02-19] MEDS: MORPHINE 2 MG/ML SYR IV PRN ×2 (09:38→16:52)
--- NOTE | 2018-02-19 14:05 | PN ---
Date of Progress Note: 02/19/2018 Subjective: The patient seen and examined. Chart reviewed and case discussed with RN. The patient counseled regarding Coumadin restricted diet. Voiced understanding. Spoke with Dr. Doty. Review of Systems: Negative except as above. Medications: List reviewed. Physical Examination: Vital Signs: Temperature 99, heart rate 73, blood pressure 115/82, respirations 18, O2 94% on room air. General: Awake, alert, oriented x3, not in any acute distress. Obese male. CV: S1, S2. No murmurs. Regular rate and rhythm. Peripheral pulses present. Respiratory: Clear to auscultation bilaterally. No wheezing. Gastrointestinal: Abdomen is soft, nontender, nondistended. Positive bowel sounds. Extremities: No clubbing, cyanosis. Some edema to the left lower extremity. Skin: Left lower extremity nodular lesion of the thigh, mobile, nontender. Laboratory Data: Sodium 138, potassium 4.6, chloride 103, CO2 32, BUN 13, creatinine 0.8, glucose 90, calcium 8.6, AST 53, ALT 59. INR 1.17. WBC 8.3, H and H 17.1 and 52, MCV 103.5, platelets 298. Assessment And Plan: A 47-year-old male with: 1. Acute right lower lobe probably embolism. We will continue with Lovenox 1 mg/kg dose q.12 hours and bridging to Coumadin. INR still subtherapeutic. The patient educated on Coumadin restricted diet. 2. Acute DVT, left superficial femoral, popliteal, and posterior tibial veins. Again, on Lovenox bridging to Coumadin. Hematology recommended newer anticoagulation agents. However, the patient has no insurance, is unfunded, will be unable to afford the medications. We will discuss with social work for possible prescription assistance or coupons and discussed with the patient. He states for now he is able to afford the Coumadin, however, concerned regarding INR checks as the patient does not have a family physician. We will refer to the [facility] or the [facility]. 3. Essential hypertension, stable. 4. Chronic pain syndrome. Continue oxycodone, IV pain medications p.r.n. The patient states his pain is well controlled. 5. Neuropathy. 6. Elevated liver enzymes, improving. 7. Secondary polycythemia, likely secondary to smoking. The patient has been counseled. 8. Nicotine dependence with cigarette smoking, uncomplicated. 9. Left thigh nodular lesion, likely lipoma. Appreciate Dr. Doty's input. We will need biopsy eventually once acute issues have resolved. /PATRICK Voice ID: [id number] Report ID: [id number] MTDD
[2018-02-19] MEDS: WARFARIN SODIUM 7.5 MG TAB PO SCH (16:52)
[2018-02-20] MEDS: MORPHINE 2 MG/ML SYR IV PRN ×2 (00:12→09:00)
[2018-02-20] MEDS: OXYCODONE HCL 5 MG TAB PO PRN ×3 (04:00→17:36)
[2018-02-20 05:21] LABS: Absolute Lymphocytes (CBC) 1.9 K/uL (0.7-4.9); Absolute Monocytes 0.8 K/uL (0.1-1.3); Absolute Neutrophil 4.3 K/uL (1.8-8.0); Basophils % 1.1 % (0-1.3); Eosinophils % 5.5 % (0-4.4); Hematocrit 52.2 % (39.6-49.0); Lymphocytes % 25.2 % (15.3-44.8); MCH 34.3 pg (27.0-35.0); MCV 102.4 fL (80-100); MPV 8.2 fL (7.6-11.3); Monocytes % 10.4 % (3.3-12.3); RBC Red Blood Cell Count 5.09 M/uL (4.33-5.43)
[2018-02-20 05:22] LABS: Protime INR 1.39
[2018-02-20 05:47] LABS: Bilirubin Total 0.6 mg/dL (0.2-1.0); Magnesium 2.3 mg/dL (1.8-2.4); Potassium 4.5 mmol/L (3.5-5.1); Protein, Total 7.4 g/dL (6.4-8.2)
[2018-02-20] MEDS: FOLIC ACID 1 MG TABLET PO SCH (08:57)
[2018-02-20] MEDS: ENOXAPARIN 80 MG/0.8 ML SQ SCH (08:58)
[2018-02-20] MEDS: CYANOCOBALAMIN 1,000 MCG TAB PO SCH (08:58)
[2018-02-20] MEDS: GABAPENTIN 400 MG CAP PO SCH ×2 (08:59→13:50)
[2018-02-20] MEDS: hydroCHLOROthiazide 12.5 MG CAP PO SCH (08:59)
[2018-02-20] MEDS: THIAMINE HCL 100 MG TABLET PO SCH (08:59)
[2018-02-20] MEDS: LISINOPRIL 20 MG TAB PO SCH (08:59)
[2018-02-20] MEDS: CARVEDILOL 6.25 MG TAB PO SCH (08:59)
[2018-02-20] MEDS: NA CHLORIDE 0.9% 1,000 ML IV SCH (09:14)
[2018-02-20 12:41] VITALS: BP 138/86; TEMP 97.8
[2018-02-20 14:32] VITALS: O2SAT 94
[2018-02-20] MEDS: WARFARIN SODIUM 7.5 MG TAB PO SCH (16:38)
--- NOTE | 2018-02-20 21:03 | PN ---
Date of Progress Note: 02/20/2018 Subjective: The patient is seen and examined. Chart reviewed, and case discussed with RN. The patient is still complaining of significant amount of pain in his left lower extremity, however, able to ambulate. No shortness of breath. Review of Systems: Negative except as above. Medications: Reviewed. Physical Examination: Vital Signs: Temperature 97.4, heart rate 66, blood pressure 111/68, respirations 12, O2 is 94% on room air. General: Awake, alert, oriented x3. Some mild distress. CV: S1, S2. No murmurs. Peripheral pulses present. Respiratory: Moving air well bilaterally. No wheezing. Gastrointestinal: Abdomen is soft, nontender, nondistended. Positive bowel sounds. No guarding or rigidity. Extremities: No clubbing or cyanosis. Left lower extremity edema. Neurologic: Nonfocal. Laboratory Data: Sodium 138, potassium 4.5, chloride 102, CO2 of 27, BUN 16, creatinine 0.9, glucose 111, calcium 8.4, magnesium 2.3. AST 52, ALT 58, albumin 3. INR 1.39. WBC 7.4, H and H 52.2, MCV 102.4, neutrophils 57.8%. Assessment And Plan: A 47-year-old male with: 1. Acute right lower lobe pulmonary embolism. We will continue anticoagulation. Currently on Lovenox q.12 hours, bridging to Coumadin. INR is improving, however, is still subtherapeutic. 2. Acute deep venous thrombosis; left superficial femoral, popliteal, and posterior tibial veins. Continue anticoagulation. Discussed with charge nurse. The patient will be able to receive coupon for Eliquis, which will be superior to Coumadin in terms of no INR checks and no bridging with Lovenox. The patient will need a minimum of 3 months and will need to follow up with comic artist for hypercoagulable workup. 3. Essential hypertension, stable. 4. Chronic pain syndrome. The patient is complaining of pain in his left leg secondary to deep venous thrombosis. 5. Neuropathy. 6. Elevated liver enzymes. The patient likely has chronic liver disease from his significant amount of drinking. 7. Secondary polycythemia, likely due to smoking. 8. Nicotine dependence with cigarette smoking, uncomplicated. 9. Left thigh nodular lesion, likely soft-tissue lesion such as lipoma. Dr. Doty recommends outpatient biopsy once deep venous thrombosis is resolved and off blood thinners. Plan: Setup Eliquis, likely discontinue in the next 24 hours once pain is improved. /PATRICK Voice ID: [id number] Report ID: [id number]
--- NOTE | 2018-02-21 04:58 | DS ---
Date of Discharge: 02/20/2018 Consultants: 1.Dr. Doty. 2.Dr. Morales, Pulmonology. Procedures: None. Admitting Diagnoses: 1.Acute pulmonary embolism. 2.Acute deep vein thrombosis, left lower extremity. 3.Essential hypertension. 4.Chronic pain syndrome. 5.Neuropathy. 6.Nicotine dependence with cigarette smoking. Discharge Diagnoses: 1.Acute pulmonary embolism, right lower lobe. 2.Acute deep vein thrombosis, left superficial femoral, popliteal, and posterior tibial veins. 3.Essential hypertension. 4.Chronic pain syndrome. 5.Neuropathy. 6.Elevated liver enzymes. 7.Secondary polycythemia. 8.Nicotine dependence with cigarette smoking. 9.Left thigh nodular lesion, likely lipoma. Hospital Course: The patient is a 47-year-old male, who came in with pain in his left leg for one an d half weeks, found to have extensive DVT, and also found to have PE in the right lower lobe with par tial infarct. The patient was seen by Dr. Morales who was consulted with Pulmonology and the patien t was started on Lovenox and was bridged to Coumadin as he is uninsured and would be unable to afford the newer anticoagulating agents. Hematology, Dr. Alvarez was consulted as well. I spoke to her regarding the patient. She recommended newer oral anticoagulations if able to be provided through c oupon codes and minimum treatment of 3-4 months with followup with her. The patient was also found t o be polycythemic, likely secondary to his smoking. He was started on IV fluids. His hemoglobin did improve. Due to his alcohol, likely he has lack of vitamin B12 and thiamine and folate. He was sup plemented with those. Did not have any alcohol withdrawal syndromes. He was counseled regarding his cigarette smoking and drinking. 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 He recently also lost his primary care physician through the [employer] system and he was encouraged to establish care with a primary care physician. A list of prima ry care physicians in the area including for patients who do not have insurance was given to the nate ent. To the help of discharge, nurse and social workers were able to find coupons for Eliquis, which will cost him 10 dollars a month. The patient was agreeable to that as something he can afford. Th e patient was then discharged home in a stable condition. Activity: As tolerated. Medications: As per medication reconciliation list. He will be on loading dose of Eliquis 10 mg p.o . b.i.d. for 7 days, then 5 mg p.o. b.i.d., and thereafter for minimum of 3 months. Followup: Follow up with radio personality, Dr. Alvarez in 2 weeks. Follow up with supervisor wool shearing, Dr. Morales in 2 weeks. Follow up with Dr. Doty in 3-4 months after off anticoagulation to workup which is likely a lipoma in his left thigh. He has multiple lesions similar to that. Diet: Heart healthy. Physical Exam Findings: Please see progress note dictated on the day of discharge. Total time spent discharging the patient was 37 minutes. The patient was counseled extensively on fo llowing up with Hematology, establishing care with a physician to have his medications refilled for h is chronic conditions such as hypertension, which was initially uncontrolled when he came in and impr randy with adjustments to his medications. He was also encouraged to quit smoking and drinking and all questions were answered. /PATRICK Voice ID: [id number] Report ID: [id number]
== END 2018-02-20 18:00 | disposition home or self-care (01) | DRG 299 ==
LOC: ER 09:40 → ERHOLD 11:25 → 2ND 13:43
PROVIDERS: ADMIT Physician Assistant; ATTEND Family Medicine
DX: I82.412 Acute embolism and thrombosis of left femoral vein (principal); I26.99 Other pulmonary embolism without acute cor pulmonale; I82.432 Acute embolism and thrombosis of left popliteal vein; I82.442 Acute embolism and thrombosis of left tibial vein; I10 Essential (primary) hypertension; G89.4 Chronic pain syndrome; G62.9 Polyneuropathy, unspecified; F17.210 Nicotine dependence, cigarettes, uncomplicated; R74.8 Abnormal levels of other serum enzymes; D75.1 Secondary polycythemia; D17.24 Benign lipomatous neoplasm of skin and subcutaneous tissue of left leg; F10.20 Alcohol dependence, uncomplicated
CPT/HCPCS: 36415; 71275; 76700; 80048; 80053; 80076; 81003; 82550; 82668; 82805; 83735; 85014; 85018; 85025; 85610; 93005; 93306; 93971; 94760; 96372; 96374; 96375; 99285; J1650; J2270; J2405; J7030; Q9967

== ENCOUNTER 2018-03-24 09:11 | Emergency (ER) | payer SELFPAY ==
[2011-10-10 22:17] VITALS: BP 151/84
--- NOTE | 2018-03-24 10:09 | EDPHYS ---
Physician Documentation [facility] Name: Dwayne Walker Jr Age: 47 yrs Sex: Male : 1970 Arrival Date: 03/24/2018 Time: 09:14 Bed 13 Private MD: ED Physician Tank Boswell HPI: 03/24 10:22 This 47 yrs old Male presents to ER via EMS with complaints of leg swelling . jr8 10:22 The patient presents with pain, swelling. The complaints affect the left leg. Onset: jr8 The symptoms/episode began/occurred gradually, 1 week(s) ago. Modifying factors: The symptoms are alleviated by nothing. the symptoms are aggravated by weight bearing. Associated signs and symptoms: The patient has no apparent associated signs or symptoms. Severity of symptoms: At their worst the symptoms were mild, in the emergency department the symptoms are unchanged. The patient has not experienced similar symptoms in the past. The patient has not recently seen a physician. Patient with history of DVT in left leg. Stated that it started to swell the other day. Still compliant with his Eliquis. Denies fevers or trauma to leg . Historical: - Allergies: 09:23 No Known Allergies; em - Home Meds: 09:23 oxycodone [Active]; Eliquis oral oral [Active]; lisinopril 20 mg Oral tab [Active]; em - PMHx: 09:23 Chronic pain; Hypertension; DVT; pulmonary embolism; em - Immunization history:: Adult Immunizations up to date. - Social history:: Smoking status: Patient uses tobacco products, smokes one-half pack cigarettes per day. - Ebola Screening: : Patient negative for fever greater than or equal to 101.5 degrees Fahrenheit, and additional compatible Ebola Virus Disease symptoms Patient denies exposure to infectious person Patient denies travel to an Ebola-affected area in the 21 days before illness onset No symptoms or risks identified at this time. ROS: 10:22 Eyes: Negative for injury, pain, redness, and discharge, ENT: Negative for injury, jr8 pain, and discharge, Neck: Negative for injury, pain, and swelling, Cardiovascular: Negative for chest pain, palpitations, and edema, Respiratory: Negative for shortness of breath, cough, wheezing, and pleuritic chest pain, Abdomen/GI: Negative for abdominal pain, nausea, vomiting, diarrhea, and constipation, Back: Negative for injury and pain, Skin: Negative for injury, rash, and discoloration, Neuro: Negative for headache, weakness, numbness, tingling, and seizure. 10:22 MS/extremity: Positive for swelling, tenderness, of the left leg, Negative for decreased range of motion, ecchymosis, erythema. Exam: 10:22 Eyes: Pupils equal round and reactive to light, extra-ocular motions intact. Lids and jr8 lashes normal. Conjunctiva and sclera are non-icteric and not injected. Cornea within normal limits. Periorbital areas with no swelling, redness, or edema. ENT: Nares patent. No nasal discharge, no septal abnormalities noted. Tympanic membranes are normal and external auditory canals are clear. Oropharynx with no redness, swelling, or masses, exudates, or evidence of obstruction, uvula midline. Mucous membranes moist. Neck: Trachea midline, no thyromegaly or masses palpated, and no cervical lymphadenopathy. Supple, full range of motion without nuchal rigidity, or vertebral point tenderness. No Meningismus. Cardiovascular: Regular rate and rhythm with a normal S1 and S2. No gallops, murmurs, or rubs. Normal PMI, no JVD. No pulse deficits. Respiratory: Lungs have equal breath sounds bilaterally, clear to auscultation and percussion. No rales, rhonchi or wheezes noted. No increased work of breathing, no retractions or nasal flaring. Abdomen/GI: Soft, non-tender, with normal bowel sounds. No distension or tympany. No guarding or rebound. No evidence of tenderness throughout. Back: No spinal tenderness. No costovertebral tenderness. Full range of motion. Skin: Warm, dry with normal turgor. Normal color with no rashes, no lesions, and no evidence of cellulitis. Neuro: Awake and alert, GCS 15, oriented to person, place, time, and situation. Cranial nerves II-XII grossly intact. Motor strength 5/5 in all extremities. Sensory grossly intact. Cerebellar exam normal. Normal gait. 10:22 Musculoskeletal/extremity: Extremities: grossly normal except: noted in the left leg: pain, swelling, tenderness, ROM: intact in all extremities, Circulation is intact in all extremities. Pulses: noted to be 2+ in the right radial artery, right posterior tibial artery, right dorsalis pedis artery, left radial artery, left posterior tibial artery and left dorsalis pedis artery, Sensation intact. Vital Signs: 09:23 BP 104 / 65; Pulse 82; Resp 16; Temp 98.1(O); Pulse Ox 94% on R/A; Pain 5/10; em 10:12 BP 105 / 71; Pulse 77; Resp 17; Pulse Ox 98% on R/A; tw2 MDM: 09:45 Patient medically screened. jr8 10:05 Data reviewed: vital signs, nurses notes, and as a result, I will discharge patient. jr8 Data interpreted: Pulse oximetry: on room air is 94 %. Interpretation: normal. Counseling: I had a detailed discussion with the patient and/or guardian regarding: the historical points, exam findings, and any diagnostic results supporting the discharge/admit diagnosis, the need for outpatient follow up, a family practitioner, to return to the emergency department if symptoms worsen or persist or if there are any questions or concerns that arise at home. ED course: Detailed discussion with patient about edema in leg. Patient is still taking his Eliquis like he is suppose to. The edematous leg is the leg that had the DVT in it. Other leg normal. No erythema or arterial insufficiency. Likely from DVT still and having congestion from the DVT. Recommended compression stocking and to keep elevating his leg as much as possible and to NOT stop his Eliquis. Otherwise to f/u with PCP. Patient is good with this and will follow instructions . Administered Medications: No medications were administered Disposition: 17:44 Co-signature as Attending Physician, Tank Boswell MD I agree with the assessment and kdr plan of care. Disposition: 03/24/18 10:09 Discharged to Home. Impression: Lower extremity edema. - Condition is Stable. - Discharge Instructions: Peripheral Edema. - Medication Reconciliation Form, Thank You Letter, Antibiotic Education, Prescription Opioid Use form. - Follow up: Private Physician; When: 5 - 6 days; Reason: Recheck today's complaints, Continuance of care, Re-evaluation by your physician. - Problem is new. - Symptoms have improved. Signatures: Tank Boswell MD MD kdr Jignesh Mena, PUBLIC HOUSING INTERVIEWER PUBLIC HOUSING INTERVIEWER em Nash Jacinto PA PA jr8 Corrections: (The following items were deleted from the chart) 10:54 10:09 03/24/2018 10:09 Discharged to Home. Impression: Lower extremity edema. Condition em is Stable. Forms are Medication Reconciliation Form, Thank You Letter, Antibiotic Education, Prescription Opioid Use. Follow up: Private Physician; When: 5 - 6 days; Reason: Recheck today's complaints, Continuance of care, Re-evaluation by your physician. Problem is new. Symptoms have improved. jr8
--- NOTE | 2018-03-24 10:09 | ER ---
Nurse's Notes [facility] Name: Dwayne Walker Jr Age: 47 yrs Sex: Male : 1970 Arrival Date: 03/24/2018 Time: 09:14 Bed 13 Private MD: Diagnosis: Lower extremity edema Presentation: 03/24 09:17 Presenting complaint: EMS states: left leg swelling x 2 days, swelling noted to left em leg, hx of DVT and PE 2-3 weeks ago admitted to hospital, denies chest pain or shortness of breath, rates ankle pain 5/10, VSS. Transition of care: patient was not received from another setting of care. Onset of symptoms was March 24, 2018. Risk Assessment: Do you want to hurt yourself or someone else? Patient reports no desire to harm self or others. Initial Sepsis Screen: Does the patient meet any 2 criteria? No. Patient's initial sepsis screen is negative. Does the patient have a suspected source of infection? No. Patient's initial sepsis screen is negative. Care prior to arrival: None. 09:17 Method Of Arrival: EMS: [facility] em 09:20 Acuity: FÉLIX 3 iw Triage Assessment: 09:23 General: Appears in no apparent distress. uncomfortable, Behavior is calm, cooperative. em Pain: Complains of pain in back and left leg. Historical: - Allergies: 09:23 No Known Allergies; em - Home Meds: 09:23 oxycodone [Active]; Eliquis oral oral [Active]; lisinopril 20 mg Oral tab [Active]; em - PMHx: 09:23 Chronic pain; Hypertension; DVT; pulmonary embolism; em - Immunization history:: Adult Immunizations up to date. - Social history:: Smoking status: Patient uses tobacco products, smokes one-half pack cigarettes per day. - Ebola Screening: : Patient negative for fever greater than or equal to 101.5 degrees Fahrenheit, and additional compatible Ebola Virus Disease symptoms Patient denies exposure to infectious person Patient denies travel to an Ebola-affected area in the 21 days before illness onset No symptoms or risks identified at this time. Screenin:25 Abuse screen: Denies threats or abuse. Nutritional screening: No deficits noted. em Tuberculosis screening: No symptoms or risk factors identified. Fall Risk None identified. Assessment: 09:25 General: Appears in no apparent distress. uncomfortable, Behavior is calm, cooperative, em Reports leg swelling for 2 days, dx with DVT and PE 2-3 weeks ago, denies CP or SOB. Pain: Complains of pain in left ardon. Neuro: Level of Consciousness is awake, alert, obeys commands, Oriented to person, place, time, situation. Cardiovascular: Capillary refill < 3 seconds Patient's skin is warm and dry. Edema is 1+ to left ankle and left foot pitting to left ankle and left foot. Respiratory: Airway is patent Respiratory effort is even, unlabored, Respiratory pattern is regular, symmetrical, Breath sounds are clear bilaterally. Denies shortness of breath. GI: Abdomen is round non-distended, Patient currently denies nausea, vomiting. : No signs and/or symptoms were reported regarding the genitourinary system. EENT: No signs and/or symptoms were reported regarding the EENT system. Derm: Skin is intact, Skin is pink, warm \T\ dry. Musculoskeletal: Range of motion: intact in all extremities. 09:35 Reassessment: Patient appears in no apparent distress at this time. I agree with above iw assessment by Jignesh Mena LVN. 10:30 Reassessment: Patient appears in no apparent distress at this time. Patient and/or em family updated on plan of care and expected duration. Pain level reassessed. Patient is alert, oriented x 3, equal unlabored respirations, skin warm/dry/pink. Vital Signs: 09:23 BP 104 / 65; Pulse 82; Resp 16; Temp 98.1(O); Pulse Ox 94% on R/A; Pain 5/10; em 10:12 BP 105 / 71; Pulse 77; Resp 17; Pulse Ox 98% on R/A; tw2 ED Course: 09:14 Patient arrived in ED. iw 09:17 Jignesh Mena LVN is Primary Nurse. em 09:23 Arm band placed on. em 09:25 Patient has correct armband on for positive identification. Bed in low position. Call em light in reach. Side rails up X 1. 09:45 Nash Jacinto PA is PHCP. jr8 09:45 Tank Boswell MD is Attending Physician. jr8 09:45 Pulse ox on. NIBP on. 5 10:25 Triage completed. iw 10:50 No provider procedures requiring assistance completed. Patient did not have IV access em during this emergency room visit. Administered Medications: No medications were administered Outcome: 10: Discharge ordered by MD. reyes 10:53 Discharged to home ambulatory. em 10:53 Condition: good 10:53 Discharge instructions given to patient, Instructed on discharge instructions, follow up and referral plans. Demonstrated understanding of instructions, follow-up care. 10:54 Patient left the ED. em Signatures: Jignesh Mena LVN LVN em Kristi Ji, RN RN iw Nash Jacinto PA PA jr8 Vicky Galvan RN RN [facility] [place] [id number]
== END 2018-03-24 10:54 | disposition home or self-care (01) ==
LOC: ER 09:11
DX: R60.0 Localized edema (principal); I10 Essential (primary) hypertension; F17.210 Nicotine dependence, cigarettes, uncomplicated; Z79.01 Long term (current) use of anticoagulants; Z86.718 Personal history of other venous thrombosis and embolism
CPT/HCPCS: 99283

== ENCOUNTER 2018-05-14 09:01 | Observation (INO) | payer OTHER, SELFPAY ==
[2018-05-14] MEDS ORDERED: MORPHINE 4 MG/ML SYR ONE (09:26)
[2018-05-14] MEDS ORDERED: ENOXAPARIN 100 MG/ML SYR SQ ONE (09:26)
[2018-05-14] MEDS ORDERED: NA CHLORIDE 0.9% 1,000 ML ONE (09:26)
[2018-05-14] MEDS ORDERED: ONDANSETRON 4 MG/2 ML VIAL ONE (09:26)
[2018-05-14 09:28] LABS: Absolute Lymphocytes (CBC) 2.5 K/uL (0.7-4.9); Absolute Monocytes 0.9 K/uL (0.1-1.3); Absolute Neutrophil 6.1 K/uL (1.8-8.0); Eosinophils % 7.5 % (0-4.4); Hematocrit 53.1 % (39.6-49.0); MCV 101.2 fL (80-100); MPV 8.4 fL (7.6-11.3); Monocytes % 8.8 % (3.3-12.3); RBC Red Blood Cell Count 5.25 M/uL (4.33-5.43)
[2018-05-14 09:29] LABS: Protime INR 1.03
[2018-05-14 09:47] LABS: ALT/SGPT 37 U/L (12-78); AST/SGOT 27 U/L (15-37); Albumin 3.2 g/dL (3.4-5.0); Alkaline Phosphatase 119 U/L (45-117); BUN Blood Urea Nitrogen 10 mg/dL (7-18); Bicarbonate 25 mmol/L (21-32); Bilirubin Direct 0.3 mg/dL (0-0.2); Bilirubin Total 0.7 mg/dL (0.2-1.0); Glucose Level 138 mg/dL (74-106); Magnesium 1.9 mg/dL (1.8-2.4); NT PRO-BNP 15 pg/mL (<125); Potassium 3.8 mmol/L (3.5-5.1); Sodium Level 139 mmol/L (136-145); Troponin (Emerg Dept Use Only) < 0.02 ng/mL (0.0-0.045)
--- NOTE | 2018-05-14 10:41 | ER ---
Nurse's Notes [facility] Name: Dwayne Walker Jr Age: 47 yrs Sex: Male : 1970 Arrival Date: 05/14/2018 Time: 09:02 Bed 7 Private MD: Diagnosis: Dyspnea;Acute embolism and thrombosis of deep veins of lower extremity;Pulmonary embolism Presentation: 05/14 08:59 Presenting complaint: EMS states: left hip and leg pain. Has hx of DVT to the left leg sv and is supposed to be on Eliquis but has not taken it for the past 2 months. BP 130/90 HR-102 96% RA. Transition of care: patient was not received from another setting of care. Onset of symptoms was May 14, 2018. Risk Assessment: Do you want to hurt yourself or someone else? Patient reports no desire to harm self or others. Initial Sepsis Screen: Does the patient meet any 2 criteria? No. Patient's initial sepsis screen is negative. Does the patient have a suspected source of infection? No. Patient's initial sepsis screen is negative. Care prior to arrival: None. 08:59 Method Of Arrival: EMS: [facility] sv 08:59 Acuity: FÉLIX 3 sv Triage Assessment: 09:00 General: Appears uncomfortable, obese, well developed, Behavior is cooperative, sv anxious. Pain: Complains of pain in left leg Pain currently is 8 out of 10 on a pain scale. Pain began "months" Is continuous, Aggravated by increased activity, weight bearing, Current management - is no interventions. EENT: No signs and/or symptoms were reported regarding the EENT system. Neuro: Level of Consciousness is awake, alert, obeys commands, Oriented to person, place, time, situation, Moves all extremities. Cardiovascular: Patient's skin is warm and dry. Rhythm is sinus rhythm. Respiratory: Reports shortness of breath on exertion intermittently Respiratory effort is even, unlabored, Respiratory pattern is regular, symmetrical. Derm: Skin is normal. Musculoskeletal: Range of motion: intact in all extremities, Swelling present in left leg. Historical: - Allergies: 09:05 No Known Allergies; sv - PMHx: 09:05 Chronic pain; DVT; Hypertension; Pulmonary Embolism; GERD; sv - Immunization history:: Adult Immunizations up to date. - Social history:: Smoking status: Patient uses tobacco products, denies chronic smoking, but will smoke occasionally, Patient uses alcohol, 4x week. - Ebola Screening: : No symptoms or risks identified at this time. - Family history:: not pertinent. Screenin:06 Abuse screen: Denies threats or abuse. Denies injuries from another. Nutritional sv screening: No deficits noted. Tuberculosis screening: No symptoms or risk factors identified. Fall Risk None identified. Assessment: 11:25 Reassessment: Patient appears in no apparent distress at this time. Patient and/or sv family updated on plan of care and expected duration. Pain level reassessed. Patient is alert, oriented x 3, equal unlabored respirations, skin warm/dry/pink. 12:20 Reassessment: Patient appears in no apparent distress at this time. Patient and/or sv family updated on plan of care and expected duration. Pain level reassessed. Patient is alert, oriented x 3, equal unlabored respirations, skin warm/dry/pink. 12:26 Reassessment: Nurse to call back for report. sv Vital Signs: 09:05 BP 149 / 92; Pulse 94; Resp 20; Temp 98.7; Pulse Ox 97% ; Weight 94.35 kg; Height 5 ft. sv 8 in. (172.72 cm); Pain 8/10; 11:08 BP 160 / 115; Pulse 85; Resp 15; Pulse Ox 96% on R/A; Pain 6/10; em1 11:25 BP 148 / 106; Pulse 85 MON; Resp 14; Pulse Ox 96% ; sv 12:22 BP 137 / 87; Pulse 90; Resp 17; Pulse Ox 95% ; sg 09:05 Body Mass Index 31.63 (94.35 kg, 172.72 cm) sv 11:25 Sinus Rhythm sv ED Course: 09:02 Patient arrived in ED. sv 09:03 Verenice Marie, CARLO is Primary Nurse. sv 09:04 Triage completed. sv 09:05 Arm band placed on left wrist. sv 09:06 ED physician to see patient. sv 09:06 Patient has correct armband on for positive identification. Placed in gown. Bed in low sv position. Call light in reach. Side rails up X2. cafeteria monitor on. Pulse ox on. NIBP on. Door closed. Head of bed elevated. 09:09 Chris Olea MD is Attending Physician. jose 09:15 Initial lab(s) drawn, by ms, sent to lab. Inserted saline lock: 18 gauge in right sv antecubital area, using aseptic technique. Blood collected. Flushed right antecubital with 5 ml normal saline. 09:29 Patient moved to radiology via stretcher. sv 09:49 XRAY Chest (1 view) In Process Unspecified. EDMS 09:49 Pelvis XRAY In Process Unspecified. EDMS 09:49 Hip Left 2 View XRAY In Process Unspecified. EDMS 10:30 CT completed. Patient moved to CT via stretcher. Patient moved back from CT. kw1 10:39 CT Chest For PE Angio In Process Unspecified. EDMS 10:39 Kishor Aj DO is Hospitalizing Provider. [facility] 10:53 US Extremity Venous W Compression Gene In Process Unspecified. EDMS 11:27 Urine Dipstick--Ancillary (enter results) Sent. sv 12:40 No provider procedures requiring assistance completed. Patient admitted, IV remains in sv place. intact. Administered Medications: 09:23 Drug: NS 0.9% 1000 ml Route: IV; Rate: 125 ml/hr; Site: right antecubital; sv 09:23 Drug: Zofran 4 mg Route: IVP; Site: right antecubital; sv 11:26 Follow up: Response: No adverse reaction sv 09:25 Drug: morphine 4 mg Route: IVP; Site: right antecubital; sv 11:26 Follow up: Response: No adverse reaction sv 09:26 Drug: Lovenox 1 mg/kg Route: Sub-Q; Site: right lower abdomen; sv 11:26 Follow up: Response: No adverse reaction sv Outcome: 10:40 Decision to Hospitalize by Provider. jose 12:40 Admitted to Tele accompanied by tech, via stretcher, room 209, with chart, Report sv called to Sophia MATOS 12:40 Condition: stable 12:40 Instructed on the need for admit. 13:13 Patient left the ED. sv Signatures: Dispatcher [employer] Verenice Castorena, Sang Awad RN, RN RN sg Anderson, Corey, MD MD cha Martinez, Cullen em1 Hilda Ramos kw1
--- NOTE | 2018-05-14 10:42 | EDPHYS ---
Physician Documentation [facility] Name: Dwayne Walker Jr Age: 47 yrs Sex: Male : 1970 Arrival Date: 05/14/2018 Time: 09:02 Bed 7 Private MD: ED Physician Chris Olea HPI: 05/14 09:11 This 47 yrs old Male presents to ER via EMS with complaints of Leg Swelling, jose Leg Pain. 09:11 The patient presents with decreased range of motion, pain, swelling, tenderness. The jose complaints affect the left hip, left quadriceps, left knee and left ardon. Context: The problem was sustained at home, resulted from a chronic condition, after an old injury. Onset: The symptoms/episode began/occurred 3 day(s) ago. Modifying factors: The symptoms are alleviated by nothing. remaining still, the symptoms are aggravated by movement. Associated signs and symptoms: The patient has no apparent associated signs or symptoms. Severity of symptoms: At their worst the symptoms were moderate, in the emergency department the symptoms are unchanged. Historical: - Allergies: 09:05 No Known Allergies; sv - PMHx: 09:05 Chronic pain; DVT; Hypertension; Pulmonary Embolism; GERD; sv - Immunization history:: Adult Immunizations up to date. - Social history:: Smoking status: Patient uses tobacco products, denies chronic smoking, but will smoke occasionally, Patient uses alcohol, 4x week. - Ebola Screening: : No symptoms or risks identified at this time. - Family history:: not pertinent. ROS: 09:11 Constitutional: Negative for fever, chills, and weight loss, Eyes: Negative for injury, jose pain, redness, and discharge, ENT: Negative for injury, pain, and discharge, Neck: Negative for injury, pain, and swelling, Respiratory: Negative for shortness of breath, cough, wheezing, and pleuritic chest pain, Abdomen/GI: Negative for abdominal pain, nausea, vomiting, diarrhea, and constipation, Back: Negative for injury and pain, : Negative for injury, bleeding, discharge, and swelling, Skin: Negative for injury, rash, and discoloration, Neuro: Negative for headache, weakness, numbness, tingling, and seizure, Psych: Negative for depression, anxiety, suicide ideation, homicidal ideation, and hallucinations, Allergy/Immunology: Negative for hives, rash, and allergies, Endocrine: Negative for neck swelling, polydipsia, polyuria, polyphagia, and marked weight changes, Hematologic/Lymphatic: Negative for swollen nodes, abnormal bleeding, and unusual bruising. 09:11 Cardiovascular: Positive for chest pain. 09:11 MS/extremity: Positive for injury or acute deformity, decreased range of motion, pain, swelling, tenderness. Exam: 09:11 Constitutional: This is a well developed, well nourished patient who is awake, alert, jose and in no acute distress. Head/Face: Normocephalic, atraumatic. Eyes: Pupils equal round and reactive to light, extra-ocular motions intact. Lids and lashes normal. Conjunctiva and sclera are non-icteric and not injected. Cornea within normal limits. Periorbital areas with no swelling, redness, or edema. ENT: Nares patent. No nasal discharge, no septal abnormalities noted. Tympanic membranes are normal and external auditory canals are clear. Oropharynx with no redness, swelling, or masses, exudates, or evidence of obstruction, uvula midline. Mucous membranes moist. Neck: Trachea midline, no thyromegaly or masses palpated, and no cervical lymphadenopathy. Supple, full range of motion without nuchal rigidity, or vertebral point tenderness. No Meningismus. Chest/axilla: Normal chest wall appearance and motion. Nontender with no deformity. No lesions are appreciated. Cardiovascular: Regular rate and rhythm with a normal S1 and S2. No gallops, murmurs, or rubs. Normal PMI, no JVD. No pulse deficits. Respiratory: Lungs have equal breath sounds bilaterally, clear to auscultation and percussion. No rales, rhonchi or wheezes noted. No increased work of breathing, no retractions or nasal flaring. Back: No spinal tenderness. No costovertebral tenderness. Full range of motion. Male : Normal genitalia with no discharge or lesions. Neuro: Awake and alert, GCS 15, oriented to person, place, time, and situation. Cranial nerves II-XII grossly intact. Motor strength 5/5 in all extremities. Sensory grossly intact. Cerebellar exam normal. Normal gait. Psych: Awake, alert, with orientation to person, place and time. Behavior, mood, and affect are within normal limits. 09:11 Abdomen/GI: Inspection: distension, Bowel sounds: normal, Palpation: nontender, Liver: no appreciated palpable abnormalities, Hernia: not appreciated. Vital Signs: 09:05 BP 149 / 92; Pulse 94; Resp 20; Temp 98.7; Pulse Ox 97% ; Weight 94.35 kg; Height 5 ft. sv 8 in. (172.72 cm); Pain 8/10; 11:08 BP 160 / 115; Pulse 85; Resp 15; Pulse Ox 96% on R/A; Pain 6/10; em1 11:25 BP 148 / 106; Pulse 85 MON; Resp 14; Pulse Ox 96% ; sv 12:22 BP 137 / 87; Pulse 90; Resp 17; Pulse Ox 95% ; sg 09:05 Body Mass Index 31.63 (94.35 kg, 172.72 cm) sv 11:25 Sinus Rhythm sv MDM: 09:09 Patient medically screened. [facility] 09:13 Data reviewed: vital signs, nurses notes, lab test result(s), EKG, radiologic studies, [facility] CT scan, doppler, plain films. 05/14 09:11 Order name: Basic Metabolic Panel; Complete Time: 10:26 [facility] 05/14 09:11 Order name: CBC with Diff; Complete Time: 10:26 [facility] 05/14 09:11 Order name: LFT's; Complete Time: 10:26 [facility] 05/14 09:11 Order name: Magnesium; Complete Time: 10:26 [facility] 05/14 09:11 Order name: NT PRO-BNP; Complete Time: 10:26 [facility] 05/14 09:11 Order name: PT-INR; Complete Time: 10:26 [facility] 05/14 09:11 Order name: Troponin (emerg Dept Use Only); Complete Time: 10:26 [facility] 05/14 09:11 Order name: XRAY Chest (1 view); Complete Time: 12:59 [facility] 05/14 09:11 Order name: Pelvis XRAY; Complete Time: 12:59 [facility] 05/14 09:11 Order name: Hip Left 2 View XRAY [facility] 05/14 09:11 Order name: US Extremity Venous W Compression Gene; Complete Time: 12:59 [facility] 05/14 09:11 Order name: CT Chest For PE Angio; Complete Time: 12:59 [facility] 05/14 10:59 Order name: Urine Dipstick--Ancillary (enter results) sp 05/14 11:13 Order name: Urine Dipstick-Ancillary; Complete Time: 12:59 [facility] 05/14 09:11 Order name: EKG; Complete Time: 09: [facility] 05/14 09:11 Order name: Cardiac monitoring; Complete Time: [facility] 05/14 09:11 Order name: EKG - Nurse/Tech; Complete Time: [facility] 05/14 09:11 Order name: IV Saline Lock; Complete Time: [facility] 05/14 09:11 Order name: Labs collected and sent; Complete Time: [facility] 05/14 09:11 Order name: O2 Per Protocol; Complete Time: [facility] 05/14 09:11 Order name: O2 Sat Monitoring; Complete Time: [facility] 05/14 09:11 Order name: Urine Dipstick-Ancillary (obtain specimen); Complete Time: [facility] Administered Medications: Drug: NS 0.9% 1000 ml Route: IV; Rate: 125 ml/hr; Site: right antecubital; sv 09:23 Drug: Zofran 4 mg Route: IVP; Site: right antecubital; sv 11:26 Follow up: Response: No adverse reaction sv 09:25 Drug: morphine 4 mg Route: IVP; Site: right antecubital; sv 11:26 Follow up: Response: No adverse reaction sv 09:26 Drug: Lovenox 1 mg/kg Route: Sub-Q; Site: right lower abdomen; sv 11:26 Follow up: Response: No adverse reaction sv Disposition: 05/14/18 10:40 Hospitalization ordered by Kishor Aj for Inpatient Admission. Preliminary diagnosis are Dyspnea, Acute embolism and thrombosis of deep veins of lower extremity, Pulmonary embolism. - Bed requested for Telemetry/MedSurg (Inpatient). - Status is Inpatient Admission. sv - Condition is Fair. - Problem is new. - Symptoms have improved. UTI on Admission? No Signatures: Dispatcher [employer] Verenice Castorena RN RN sv Anderson, Corey, MD MD cha Pinkerton, Shawna sp Corrections: (The following items were deleted from the chart) 10:53 10:40 Hospitalization Ordered by Kishor Aj DO for Inpatient Admission. Preliminary [facility] diagnosis is Dyspnea; Acute embolism and thrombosis of deep veins of lower extremity. Bed requested for Telemetry/MedSurg (Inpatient). Status is Inpatient Admission. Condition is Fair. Problem is new. Symptoms have improved. UTI on Admission? No. jose 12:08 10:53 05/14/2018 10:40 Hospitalization Ordered by Kishor Aj DO for Inpatient sp Admission. Preliminary diagnosis is Dyspnea; Acute embolism and thrombosis of deep veins of lower extremity; Pulmonary embolism. Bed requested for Telemetry/MedSurg (Inpatient). Status is Inpatient Admission. Condition is Fair. Problem is new. Symptoms have improved. UTI on Admission? No. jose 13:13 12:08 05/14/2018 10:40 Hospitalization Ordered by Kishor Aj DO for Inpatient sv Admission. Preliminary diagnosis is Dyspnea; Acute embolism and thrombosis of deep veins of lower extremity; Pulmonary embolism. Bed requested for Telemetry/MedSurg (Inpatient). Status is Inpatient Admission. Condition is Fair. Problem is new. Symptoms have improved. UTI on Admission? No. sp
--- NOTE | 2018-05-14 11:01 | RAD REPORT ---
EXAM DESCRIPTION: CT - Chest For Pe Angio - 05/14/2018 10:38 am CLINICAL HISTORY: Chest pain. CHEST PAIN COMPARISON: Chest For Pe Angio dated 02/16/2018 TECHNIQUE: CT angiogram of the pulmonary arteries was performed with MIP. All CT scans are performed using dose optimization technique as appropriate and may include automated exposure control or mA/KV adjustment according to patient size. FINDINGS: The filling defects are seen in the segmental right lower lobe pulmonary arterial branches compatible with pulmonary embolism. A small linear embolism is seen in the right upper lobe branch. These pulmonary emboli were present on the 02/16/2018 study. No new or progressive pulmonary embolism is identified on today's exam. No acute aortic finding demonstrated. The lungs are mildly emphysematous but clear. No significant pericardial or pleural fluid. No concerning bony finding. IMPRESSION: Evidence of chronic right-sided pulmonary emboli noted. No new or progressive PE seen si nye 02/16/2018 prior study. No acute lung findings.
[2018-05-14 11:13] LABS: Urine Blood NEGATIVE (NEG); Urine Glucose NEGATIVE (NEG); Urine Protein NEGATIVE (NEG); Urine pH 6.5 (5.0-7.0)
[2018-05-14] MEDS ORDERED: ACETAMINOPHEN 500 MG TAB PO PRN (11:18)
[2018-05-14] MEDS ORDERED: ONDANSETRON 4 MG/2 ML VIAL IV PRN (11:18)
[2018-05-14] MEDS ORDERED: ALBUTEROL 2.5 MG/3 ML NEB SOL NEB PRN (11:18)
[2018-05-14] MEDS ORDERED: IPRATROPIUM BROM 0.5MG/2.5ML NEB PRN (11:18)
--- NOTE | 2018-05-14 11:22 | RAD REPORT ---
EXAM DESCRIPTION: US - Extrem Venous W Compress Gene - 05/14/2018 10:53 am CLINICAL HISTORY: PAIN Bilateral leg edema and swelling. COMPARISON: Extremity Venous Uni Ltd dated 02/16/2018 TECHNIQUE: Real-time sonographic interrogation of the left and right lower extremity deep venous sys tems was performed. FINDINGS: Thrombus is again noted in the left common femoral vein to the left popliteal vein, which are noncompressible. This is compatible with chronic DVT. No new areas of left lower extremity DVT se en. No evidence of right lower extremity DVT. IMPRESSION: Chronic left lower extremity DVT without progression is seen.
--- NOTE | 2018-05-14 11:27 | RAD REPORT ---
EXAM DESCRIPTION: RAD - Pelvis - 05/14/2018 9:51 am CLINICAL HISTORY: PAIN COMPARISON: None FINDINGS: AP pelvis and left hip, two views are submitted. No acute fracture or dislocation seen. No evidence of AVN. Multiple screws are present spanning the s acroiliac joints bilaterally.
--- NOTE | 2018-05-14 11:29 | RAD REPORT ---
EXAM DESCRIPTION: RAD - Chest Single View - 05/14/2018 9:51 am CLINICAL HISTORY: COUGH Chest pain. COMPARISON: No comparisons FINDINGS: Portable technique limits examination quality. The lungs are grossly clear. The heart is upper limit of normal in size. No displaced fractures. IMPRESSION: No acute intrathoracic process suspected.
--- NOTE | 2018-05-14 11:31 | P.HP ---
Certification for Inpatient Patient admitted to: Observation With expected LOS: <2 Midnights Patient will require the following post-hospital care: None Practitioner: I am a practitioner with admitting privileges, knowledge of patient current condition, hospital course, and medical plan of care. Services: Services provided to patient in accordance with Admission requirements found in Title 42 Section 412.3 of the Code of Federal Regulations Patient History Date of Service: 05/14/18 Primary Care Provider: None/Indigent Clinic Reason for admission: Shortness of breath History of Present Illness: 47-year-old male presented emergency room with shortness of breath. Patient with history of pulmonary embolism and DVT diagnosed in January 2018. The patient was hospitalized at that time. Patient was sent home on Eliquis. Patient was to follow up and continue with Eliquis. Patient ran out of medication. Patient presents today with shortness of breath. Patient denies any fever, chills, chest pain or palpitation. Patient reports some mild pain to the left hip. Patient with history of chronic pain, hypertension, GERD, tobacco and alcohol abuse. Patient in the ER was evaluated. Blood pressure slightly elevated. Room-air saturations within normal range. On lab white count 10.4, hemoglobin 18. Platelet count 265. Sodium 139, potassium 3.8. BUN of 10, creatinine 0.8. Troponin less than 0.02. Urinalysis unremarkable. CT angiogram shows chronic right pulmonary embolism. No progression or new acute embolism identified. Patient was admitted for observation. When I saw the patient the ER, he appeared comfortable. He did not appear in any respiratory distress. Allergies No Known Drug Allergies Allergy (Verified 02/16/18 18:15) Unknown No Allergy (Uncoded 02/16/18 18:15) Unknown No Known Allergies Allergy (Uncoded 03/24/18 10:57) Unknown Home medications list reviewed: Yes Home Medications: Gabapentin 800 mg PO TID 02/16/18 Oxycodone HCl 15 mg PO Q6HR PRN 02/16/18 Apixaban [Eliquis] 10 mg PO BID #60 tablet 02/20/18 Carvedilol [Coreg*] 6.25 mg PO BID #60 tab 02/20/18 Folic Acid 1 mg PO DAILY #30 tablet 02/20/18 Lisinopril [Prinivil*] 20 mg PO DAILY #30 tab 02/20/18 Thiamine HCl [Vitamin B-1*] 100 mg PO DAILY #30 tablet 02/20/18 hydroCHLOROthiazide [Hydrochlorothiazide*] 12.5 mg PO DAILY #30 cap 02/20/18 - Past Medical/Surgical History Diabetic: No -: Hypertension -: GERD -: Chronic pain secondary to fall injury -: Scoliosis -: Pulmonary embolism/DVT, January 2018 -: Alcohol abuse -: Tobacco abuse -: fell through roof, multiple fractures -: bilateral hip repair -: bilateral leg feet fracture repairs -: lower spine fractures 13 areas Psychosocial/ Personal History: Patient is single. 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 - Family History Mother -: Hypertension Father -: Heart disease - Social History Smoking Status: Heavy Tobacco smoker (>10 cigarettes/day) Counseled patient to stop smoking for: less than 10 minutes Smoking therapy provided: Yes Patient receptive to therapy: Yes Alcohol use: Yes CD- Drugs: No Caffeine use: Yes Place of Residence: Home Review of Systems General: As per HPI Eyes: Unremarkable ENT: Unremarkable Respiratory: Shortness of Breath, As per HPI Cardiovascular: Unremarkable Gastrointestinal: Unremarkable Genitourinary: Unremarkable Musculoskeletal: Leg Pain, As per HPI Integumentary: As per HPI (Lipoma as to multiple areas of the skin.) Neurological: Unremarkable Lymphatics: Unremarkable Physical Examination - Physical Exam General: Alert, In no apparent distress, Oriented x3, Cooperative HEENT: Atraumatic, Normocephalic, PERRLA, Mucous membr. moist/pink Neck: Supple, No Thyromegaly Respiratory: Clear to auscultation bilaterally, Normal air movement Cardiovascular: Normal pulses, Regular rate/rhythm Gastrointestinal: Normal bowel sounds, Soft and benign, Non-distended, No tenderness, No masses, No rebound, No guarding Musculoskeletal: No erythema, No tenderness, No warmth Integumentary: Other (Multiple lipomas to the skin subcutaneously to the left hip, left thigh, right forearm and left elbow region. Chronic surgical changes to the left lower extremity) Neurological: Normal speech, Normal strength at 5/5 x4 extr, Normal tone, Normal affect - Studies Laboratory Data (last 24 hrs) 05/14/18 09:15: PT 12.1, INR 1.03 05/14/18 09:15: WBC 10.4, Hgb 18.4 H, Hct 53.1 H, Plt Count 265 05/14/18 09:15: Sodium 139, Potassium 3.8, BUN 10, Creatinine 0.80, Glucose 138 H, Magnesium 1.9, Total Bilirubin 0.7, AST 27, ALT 37, Alkaline Phosphatase 119 H Assessment and Plan - Plan Impression: Shortness of breath with history of pulmonary embolism/DVT complicated with poor compliance with medication. CT scan reveals chronic pulmonary embolism, no acute embolism identified. 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 CT scan reveals chronic pulmonary embolism, no acute embolism identified: Patient will be admitted for full-dose anti coagulation therapy. Will start Lovenox at 1 milligram/kilogram subcu twice daily. Will have social media developer help in securing Eliquis coupon. Will check to see if the patient qualified for [employer] program in the recent past. If so will need to check status. If not patient will need to qualify to get medication. Compliance addressed in detail with the patient. Anticipate possible discharge tomorrow if medication can be secured. Will maintain sats above 90%. Will monitor closely. Hypertension: Will restart home medication-lisinopril and carvedilol. Will monitor and address appropriately. GERD: Will start Protonix. Tobacco abuse: Will provide tobacco cessation education. Will start nicotine patch. Alcohol use: Will provide alcohol cessation education. Suspect COPD: Will provide COPD treatment. Patient may require COPD medication at discharge. Chronic pain secondary to fall injury: Will provide medication for pain. Patient will need a follow up with pain management to further address. 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 Patient may require biopsy with surgery as an outpatient. These appear benign. Discharge Plan: Home Plan to discharge in: 24 Hours - Advance Directives Does patient have a Living Will: No Does patient have a Durable POA for Healthcare: No - Code Status/Comfort Care Code Status Assessed: Yes (Patient full code.) Time Spent Managing Pts Care (In Minutes): 55
[2018-05-14] MEDS: GABAPENTIN 400 MG CAP PO SCH ×2 (13:51→20:28)
[2018-05-14] MEDS: HYDROCODONE/APAP 7.5/325 MG TAB PO PRN ×2 (13:52→20:28)
[2018-05-14] MEDS: FOLIC ACID 1 MG TABLET PO SCH (14:03)
[2018-05-14] MEDS: LISINOPRIL 20 MG TAB PO SCH (14:03)
[2018-05-14] MEDS: THIAMINE HCL 100 MG TABLET PO SCH (14:04)
[2018-05-14 15:33] VITALS: BMI 31.6
[2018-05-14] MEDS: ARFORMOTEROL TARTRATE 15 MCG/2 ML VIAL.NEB NEB SCH (19:18)
[2018-05-14] MEDS: ENOXAPARIN 100 MG/ML SYR SQ SCH (20:27)
[2018-05-14] MEDS: CARVEDILOL 6.25 MG TAB PO SCH (20:28)
[2018-05-14 20:35] LABS: Urine Appearance CLEAR; Urine Blood NEGATIVE (NEG); Urine Color DK YELLOW; Urine Glucose NEGATIVE (NEG); Urine Protein NEGATIVE (NEG); Urine Specific Gravity >=1.030 (1.005-1.030)
[2018-05-14 21:05] LABS: Urine Bilirubin NEGATIVE (NEG); Urine Microscopic Reflex NO UMIC
[2018-05-15] MEDS: ALPRAZOLAM 0.25 MG TABLET PO PRN ×2 (02:23→14:12)
[2018-05-15] MEDS: HYDROCODONE/APAP 7.5/325 MG TAB PO PRN ×2 (03:29→10:12)
[2018-05-15 05:07] LABS: Absolute Monocytes 0.7 K/uL (0.1-1.3); Absolute Neutrophil 3.6 K/uL (1.8-8.0); Basophils % 0.5 % (0-1.3); Eosinophils % 10.5 % (0-4.4); Hematocrit 50.5 % (39.6-49.0); Lymphocytes % 27.9 % (15.3-44.8); MCH 35.4 pg (27.0-35.0); MCV 101.4 fL (80-100); MPV 8.4 fL (7.6-11.3); Monocytes % 10.3 % (3.3-12.3); RBC Red Blood Cell Count 4.98 M/uL (4.33-5.43)
[2018-05-15 05:23] LABS: BUN Blood Urea Nitrogen 11 mg/dL (7-18); Bicarbonate 32 mmol/L (21-32); Glucose Level 97 mg/dL (74-106); Potassium 4.2 mmol/L (3.5-5.1); Sodium Level 142 mmol/L (136-145)
[2018-05-15 05:24] LABS: Magnesium 2.1 mg/dL (1.8-2.4)
[2018-05-15] MEDS ORDERED: PANTOPRAZOLE 40MG TABLET PO SCH (06:30)
--- NOTE | 2018-05-15 08:10 | EKG ---
Test Date: 2018-05-14 Test Time: 10:47:07 [employer] Coloring Operator: SWG MEASUREMENT RESULTS: Intervals: Rate: 82 ME: 144 QRSD: 82 QT: 386 QTc: 450 Forgan: P: 47 ME: 144 QRS: 31 T: 47 INTERPRETIVE STATEMENTS: Normal sinus rhythm Normal ECG Compared to ECG 02/16/2018 12:01:40 Left ventricular hypertrophy no longer present Electronically Signed On 05-15-18 08:10:04 CDT by Sundar Santos
[2018-05-15] MEDS: CARVEDILOL 6.25 MG TAB PO SCH (08:34)
[2018-05-15] MEDS: GABAPENTIN 400 MG CAP PO SCH ×2 (08:35→14:12)
[2018-05-15] MEDS: LISINOPRIL 20 MG TAB PO SCH (08:36)
[2018-05-15] MEDS: FOLIC ACID 1 MG TABLET PO SCH (08:37)
[2018-05-15] MEDS: THIAMINE HCL 100 MG TABLET PO SCH (08:37)
[2018-05-15] MEDS: ENOXAPARIN 100 MG/ML SYR SQ SCH (08:38)
[2018-05-15] MEDS ORDERED: NICOTINE 21 MG/PAT TD SCH (09:00)
[2018-05-15] MEDS: ARFORMOTEROL TARTRATE 15 MCG/2 ML VIAL.NEB NEB SCH (09:17)
--- NOTE | 2018-05-15 09:33 | RAD REPORT ---
EXAM DESCRIPTION: RAD - Hip Left 2 View - 05/14/2018 9:51 am CLINICAL HISTORY: PAIN COMPARISON: None FINDINGS: AP pelvis and left hip, two views are submitted. No acute fracture or dislocation seen. No evidence of AVN. Multiple screws are present spanning the s acroiliac joints bilaterally.
--- NOTE | 2018-05-15 11:42 | P.PN ---
Subjective Date of Service: 05/15/18 Primary Care Provider: None/Indigent Clinic Chief Complaint: Shortness of breath Subjective: Other (Patient doing well. Mild cough noted. No significant shortness of breath.) Physical Examination - Vital Signs Temperature: 97.3 F Blood Pressure: 160/90 Pulse: 71 Respirations: 16 Pulse Ox (%): 96 - Physical Exam General: Alert, In no apparent distress, Oriented x3, Cooperative HEENT: Atraumatic Neck: Supple Respiratory: Clear to auscultation bilaterally, Normal air movement Cardiovascular: Normal pulses, Regular rate/rhythm Gastrointestinal: Normal bowel sounds, Soft and benign, Non-distended, No tenderness, No masses, No rebound, No guarding Musculoskeletal: No erythema, No tenderness, No warmth Integumentary: No tenderness/swelling, No erythema, No warmth, No cyanosis Neurological: Normal speech, Normal strength at 5/5 x4 extr, Normal tone, Normal affect - Studies Medications List Reviewed: Yes Assessment & Plan Discharge Plan: Home Plan to discharge in: 24 Hours Physician Review Additional Text: Impression: Shortness of breath with chronic pulmonary embolism/left lower extremity complicated with poor compliance with medication. CT scan reveals chronic pulmonary embolism, no acute embolism identified. 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 CT scan reveals chronic pulmonary embolism, no acute embolism identified. Venous Doppler shows chronic left lower extremity DVT: Patient currently on full-dose anti coagulation therapy-Lovenox. Case discussed at length with social science professor. Will check to see if the patient has qualified for Eliquis program to get medication for free. Patient seen in January for PE/DVT. He was started on Eliquis at that time. Will recommend to continue Eliquis at discharge. Will check to see how much Eliquis will be for the patient. Will maintain sats above 90%. Patient will need to establish care with a PCP to continue his care. Will social science professor help in this process. Hypertension: Patient currently on lisinopril and carvedilol. Carvedilol increased today. Will monitor and address appropriately. GERD: Will continue with Protonix. Tobacco abuse: Will continue to provide tobacco cessation education. Continue with nicotine patch. Alcohol use: Will continue to provide alcohol cessation education. Suspect COPD: Will continue with COPD treatment. Patient may require COPD medication at discharge. Chronic pain secondary to fall injury: Will provide medication for pain. Patient will need a follow up with pain management to further address. 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 Patient may require biopsy with surgery as an outpatient. These appear benign. Anticipate discharge later today if Eliquis can be secured. If the patient remains till tomorrow, I will turn the service over to Dr. Alozno who will take over. I will go over the plan of care with him. Time Spent Managing Pts Care (In Minutes): 55
[2018-05-15 11:52] VITALS: O2SAT 97
--- NOTE | 2018-05-15 13:45 | P.DS ---
Admission Date: 05/14/18 Discharge Date: 05/15/18 Primary Care Provider: None/Indigent Clinic Disposition: ROUTINE DISCHARGE Discharge Condition: GOOD Reason for Admission: Shortness of breath Procedures: CT scan: COMPARISON: Chest For Pe Angio dated 02/16/2018 TECHNIQUE: CT angiogram of the pulmonary arteries was performed with MIP. All CT scans are performed using dose optimization technique as appropriate and may include automated exposure control or mA/KV adjustment according to patient size. FINDINGS: The filling defects are seen in the segmental right lower lobe pulmonary arterial branches compatible with pulmonary embolism. A small linear embolism is seen in the right upper lobe branch. These pulmonary emboli were present on the 02/16/2018 study. No new or progressive pulmonary embolism is identified on today's exam. No acute aortic finding demonstrated. The lungs are mildly emphysematous but clear. No significant pericardial or pleural fluid. No concerning bony finding. IMPRESSION: Evidence of chronic right-sided pulmonary emboli noted. No new or progressive PE seen since 02/16/2018 prior study. No acute lung findings. Venous doppler: COMPARISON: Extremity Venous Uni Ltd dated 02/16/2018 TECHNIQUE: Real-time sonographic interrogation of the left and right lower extremity deep venous systems was performed. FINDINGS: Thrombus is again noted in the left common femoral vein to the left popliteal vein, which are noncompressible. This is compatible with chronic DVT. No new areas of left lower extremity DVT seen. No evidence of right lower extremity DVT. IMPRESSION: Chronic left lower extremity DVT without progression is seen. Medical Problem List: Shortness of breath with chronic pulmonary embolism/left lower extremity complicated with poor compliance with medication. CT scan reveals chronic pulmonary embolism, no acute embolism identified. 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 Patient with history of pulmonary embolism and DVT diagnosed in January 2018. The patient was hospitalized at that time. Patient was sent home on Eliquis. Patient was to follow up and continue with Eliquis. Patient ran out of medication. Patient presents today with shortness of breath. Patient denies any fever, chills, chest pain or palpitation. Patient reports some mild pain to the left hip. Patient with history of chronic pain, hypertension, GERD, tobacco and alcohol abuse. Patient in the ER was evaluated. Blood pressure slightly elevated. Room-air saturations within normal range. On lab white count 10.4, hemoglobin 18. Platelet count 265. Sodium 139, potassium 3.8. BUN of 10, creatinine 0.8. Troponin less than 0.02. Urinalysis unremarkable. CT angiogram shows chronic right pulmonary embolism. No progression or new acute embolism identified. Patient was admitted for observation. When I saw the patient the ER, he appeared comfortable. He did not appear in any respiratory distress. Hospital Course: Patient presented with shortness of breath secondary to chronic pulmonary embolism/DVT complicated with poor compliance with medication. CT scan reveals chronic pulmonary embolism, no acute embolism identified. Venous Doppler showed chronic left lower extremity DVT. Patient has been without medication for about a month. Patient had qualified for [facility] to get medication. Patient was admitted. Social work helped to investigate this further. Patient is qualified to get Eliquis for 3 more months. Patient doing well at discharge. No significant shortness of breath noted. At discharge he will continue with Eliquis 5 mg 1 pill twice daily for 3 months. Recommendation for the patient follow up with pulmonology as an outpatient to further monitor. Education on anti coagulation therapy will be provided. Patient has hypertension. Patient currently on lisinopril and carvedilol. Blood pressure medication was adjusted. HCTZ has been discontinued. At discharge he will continue with lisinopril 20 mg 1 pill once daily and carvedilol 12.5 mg 1 pill twice daily. Recommendation is to maintain blood pressures less 150/80. Further adjustment can be done by his PCP. Patient has GERD. Patient will continue with Protonix 40 mg 1 pill once daily. Tobacco and alcohol abuse. Cessation education will be provided at discharge. Patient likely has underlying COPD. At discharge patient will be provided Airduo 2 puffs twice daily and Pro air 2 puffs 3 times a day as needed for shortness of breath. Recommendations for the patient follow up with pulmonology as an outpatient to further monitor and address. Patient has chronic pain secondary to fall injury. Patient will continue with Neurontin 800 mg one pill TID. Recommendation for the patient to follow up with pain management to establish care and refill his medication. 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 This appears chronic. Recommendation is for the patient follow up with surgery as an outpatient to evaluate further. Patient may require biopsy. Vital Signs/Physical Exam: Temp Pulse Resp BP Pulse Ox 98.1 F 74 16 156/92 H 92 05/15/18 12:00 05/15/18 12:00 05/15/18 12:00 05/15/18 12:00 05/15/18 12:00 General: Alert, In no apparent distress, Oriented x3, Cooperative HEENT: Atraumatic Neck: Supple Respiratory: Clear to auscultation bilaterally, Normal air movement Cardiovascular: Normal pulses, Regular rate/rhythm Gastrointestinal: Normal bowel sounds, Soft and benign, Non-distended, No tenderness, No masses, No rebound, No guarding Musculoskeletal: No erythema, No tenderness, No warmth Integumentary: No tenderness/swelling, No erythema, No warmth, No cyanosis Neurological: Normal speech, Normal strength at 5/5 x4 extr, Normal tone, Normal affect Laboratory Data at Discharge: WBC 7.1 K/uL (4.3-10.9) D 05/15/18 04:14 Hgb 17.6 g/dL (13.6-17.9) 05/15/18 04:14 Hct 50.5 % (39.6-49.0) H 05/15/18 04:14 Plt Count 242 K/uL (152-406) 05/15/18 04:14 PT 12.1 SECONDS (9.5-12.5) 05/14/18 09:15 INR 1.03 05/14/18 09:15 Sodium 142 mmol/L (136-145) 05/15/18 04:14 Potassium 4.2 mmol/L (3.5-5.1) 05/15/18 04:14 BUN 11 mg/dL (7-18) 05/15/18 04:14 Creatinine 0.80 mg/dL (0.55-1.3) 05/15/18 04:14 Glucose 97 mg/dL (74-106) 05/15/18 04:14 Magnesium 2.1 mg/dL (1.8-2.4) 05/15/18 04:14 Total Bilirubin 0.7 mg/dL (0.2-1.0) 05/14/18 09:15 AST 27 U/L (15-37) 05/14/18 09:15 ALT 37 U/L (12-78) 05/14/18 09:15 Alkaline Phosphatase 119 U/L (45-117) H 05/14/18 09:15 Home Medications: Gabapentin 800 mg PO TID 02/16/18 Oxycodone HCl 15 mg PO Q6HR PRN 02/16/18 Folic Acid 1 mg PO DAILY #30 tablet 02/20/18 Lisinopril [Prinivil*] 20 mg PO DAILY #30 tab 02/20/18 Thiamine HCl [Vitamin B-1*] 100 mg PO DAILY #30 tablet 02/20/18 Albuterol Sulfate [Proair Hfa] 8.5 gm IH TID PRN #1 hfa.aer.ad 05/15/18 Apixaban [Eliquis] 5 mg PO BID #60 tablet 05/15/18 Carvedilol [Coreg*] 12.5 mg PO BID #60 tab 05/15/18 Fluticasone/Salmeterol [Airduo Respiclick 113-14 Mcg] 1 each IH BID #1 aer.pow.ba 05/15/18 Pantoprazole [Protonix Tab*] 40 mg PO DAILYAC #30 tab 05/15/18 New Medications: Albuterol Sulfate [Proair Hfa] 8.5 gm IH TID PRN #1 hfa.aer.ad PRN Reason: Shortness Of Breath Apixaban [Eliquis] 5 mg PO BID #60 tablet Carvedilol [Coreg*] 12.5 mg PO BID #60 tab Fluticasone/Salmeterol [Airduo Respiclick 113-14 Mcg] 1 each IH BID #1 aer.pow.ba Pantoprazole [Protonix Tab*] 40 mg PO DAILYAC #30 tab Patient Discharge Instructions: 1. Patient follow up with his PCP in 1-2 weeks to follow up this hospitalization. 2. Patient presented with shortness of breath secondary to chronic pulmonary embolism/DVT complicated with poor compliance with medication. CT scan reveals chronic pulmonary embolism, no acute embolism identified. Venous Doppler showed chronic left lower extremity DVT. Patient has been without medication for about a month. Patient had qualified for indigent to get medication. Patient was admitted. Social work helped to investigate this further. Patient is qualified to get Eliquis for 3 more months. Patient doing well at discharge. No significant shortness of breath noted. At discharge he will continue with Eliquis 5 mg 1 pill twice daily for 3 months. Recommendation for the patient follow up with pulmonology as an outpatient to further monitor. Education on anti coagulation therapy will be provided. 3. Patient has hypertension. Patient currently on lisinopril and carvedilol. Blood pressure medication was adjusted. HCTZ has been discontinued. At discharge he will continue with lisinopril 20 mg 1 pill once daily and carvedilol 12.5 mg 1 pill twice daily. Recommendation is to maintain blood pressures less 150/80. Further adjustment can be done by his PCP. 4. Patient has GERD. Patient will continue with Protonix 40 mg 1 pill once daily. 5. Tobacco and alcohol abuse. Cessation education will be provided at discharge. 6. Patient likely has underlying COPD. At discharge patient will be provided Airduo 2 puffs twice daily and Pro air 2 puffs 3 times a day as needed for shortness of breath. Recommendations for the patient follow up with pulmonology as an outpatient to further monitor and address. 7. Patient has chronic pain secondary to fall injury. Patient will continue with Neurontin 800 mg one pill TID. Recommendation for the patient to follow up with pain management to establish care and refill his medication. 8. 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 This appears chronic. Recommendation is for the patient follow up with surgery as an outpatient to evaluate further. Patient may require biopsy. Diet: AHA Activity: Ad aubree Time spent managing pt's care (in minutes): 55
[2018-05-15 17:04] VITALS: BP 148/96; TEMP 97.5
[2018-05-15] MEDS ORDERED: CARVEDILOL 12.5 MG TAB PO SCH (21:00)
== END 2018-05-15 16:34 | disposition home or self-care (01) ==
LOC: ER 09:01 → ERHOLD 10:41 → INTOOBSV 10:41 → 2ND 12:30
PROVIDERS: ADMIT Family Medicine; ATTEND Family Medicine
DX: I27.82 Chronic pulmonary embolism (principal); I10 Essential (primary) hypertension; K21.9 Gastro-esophageal reflux disease without esophagitis; F10.20 Alcohol dependence, uncomplicated; F17.210 Nicotine dependence, cigarettes, uncomplicated; Z98.890 Other specified postprocedural states; Z86.718 Personal history of other venous thrombosis and embolism; Z91.14 Patient's other noncompliance with medication regimen; D17.21 Benign lipomatous neoplasm of skin and subcutaneous tissue of right arm; D17.24 Benign lipomatous neoplasm of skin and subcutaneous tissue of left leg; G89.21 Chronic pain due to trauma
CPT/HCPCS: 36415; 71045; 71275; 72170; 80048; 80076; 81003; 83735; 83880; 84484; 85025; 85610; 93005; 93970; 96372; 96374; 96375; 99285; G0378; J1650; J2405; J7030; J7605; Q9967

== ENCOUNTER 2019-02-26 13:52 | Emergency (ER) | payer OTHER, SELFPAY ==
--- OUTSIDE RECORDS SUMMARY | 2019-02-26 13:54 | XMS REPORT ---
:1970 [facility] Address [address] [place] [address] Dr. Allred [address] [place] [id number] Care Team Providers Name Role Phone Unavailable Unavailable Unavailable Problems This patient has no known problems. Allergies, Adverse Reactions, Alerts This patient has no known allergies or adverse reactions. Medications This patient has no known medications.
[2019-02-26 14:32] LABS: Absolute Lymphocytes (CBC) 2.3 K/uL (0.7-4.9); Basophils % 0.6 % (0-1.3); Eosinophils % 4.7 % (0-4.4); Lymphocytes % 26.6 % (15.3-44.8); MPV 7.8 fL (7.6-11.3); Monocytes % 8.4 % (3.3-12.3); RBC Red Blood Cell Count 5.61 M/uL (4.33-5.43)
[2019-02-26 14:33] LABS: Protime INR 1.25
--- NOTE | 2019-02-26 14:33 | RAD REPORT ---
EXAM DESCRIPTION: RAD - Chest Single View - 02/26/2019 2:16 pm CLINICAL HISTORY: Chest pain COMPARISON: April 2018 TECHNIQUE: AP portable chest image was obtained 1412 hour . FINDINGS: Lung volumes are low. No peripheral mass or consolidation. No failure or volume overload. Heart and vasculature are normal. No measurable pleural effusion and no pneumothorax. No acute bony a bnormality seen. No acute aortic findings suspected. IMPRESSION: No acute cardiopulmonary process. No suspicious change from comparison.
[2019-02-26 14:50] LABS: ALT/SGPT 67 U/L (12-78); AST/SGOT 56 U/L (15-37); Albumin 3.6 g/dL (3.4-5.0); Alkaline Phosphatase 131 U/L (45-117); BUN Blood Urea Nitrogen 9 mg/dL (7-18); Bicarbonate 24 mmol/L (21-32); Bilirubin Direct 0.4 mg/dL (0-0.2); Bilirubin Total 1.1 mg/dL (0.2-1.0); Glucose Level 124 mg/dL (74-106); Magnesium 2.3 mg/dL (1.8-2.4); NT PRO-BNP 8 pg/mL (<125); Protein, Total 8.4 g/dL (6.4-8.2); Sodium Level 141 mmol/L (136-145); Troponin (Emerg Dept Use Only) < 0.02 ng/mL (0.0-0.045)
--- NOTE | 2019-02-26 15:08 | RAD REPORT ---
EXAM DESCRIPTION: US - Extremity Venous Uni Ltd - 02/26/2019 2:51 pm CLINICAL HISTORY: Left leg pain and swelling COMPARISON: DVT study April 2018 TECHNIQUE: Real-time sonographic evaluation of the left lower extremity deep venous system was perfo rmed. FINDINGS: Old thrombus is identified along the length of the superficial femoral vein. Slowly is laury ntifiable within this vessel. Old clot was present in this region on the April 2018 study. No liss t seen in the popliteal vein which is seen to compress. Left common femoral vein thrombus has resolve d as well. No mass or abnormal fluid collection in the soft tissues. IMPRESSION: Old deep venous thrombosis remains in the left superficial femoral vein. Prior thrombus in the common femoral vein and popliteal vein has resolved. No evidence for propagation of old thrombus.
--- NOTE | 2019-02-26 15:27 | RAD REPORT ---
EXAM DESCRIPTION: CT - Chest For Pe Angio - 02/26/2019 3:12 pm CLINICAL HISTORY: Chest pain COMPARISON: 2017 TECHNIQUE: Dynamically enhanced axial 3 mm thick images of the chest were obtained during administra tion of <100> mL Isovue 370 IV contrast. Coronal and oblique reconstruction images were generated and reviewed. Exam utilizes a protocol for optimal evaluation of pulmonary arterial tree. Maximum intensity projections 3D imaging was utilized All CT scans are performed using dose optimization technique as appropriate and may include automated exposure control or mA/KV adjustment according to patient size. FINDINGS: The right pulmonary emboli have resolved. No left pulmonary emboli. A thoracic aortic aneurysm is not noted. A pleural effusion is not seen. A pericardial effusion is not seen. A lung consolidation is not present. Fatty liver IMPRESSION: Resolution of right pulmonary emboli
--- NOTE | 2019-02-26 15:36 | RAD REPORT ---
EXAM DESCRIPTION: US - Abdomen Exam Limited - 02/26/2019 3:29 pm CLINICAL HISTORY: Abdominal pain. COMPARISON: None. FINDINGS: The gallbladder wall is not thickened. A gallstone is not seen. The biliary tree is normal caliber. Liver has increased echotexture consistent with infiltration. Hepatopetal flow rad. Liver appears mil dly enlarged IMPRESSION: Unremarkable gallbladder ultrasound. Mild hepatomegaly with fatty infiltration
--- NOTE | 2019-02-26 16:20 | EKG ---
Test Date: 2019-02-26 Test Time: 13:59:05 Geophysics Professor: MARY MEASUREMENT RESULTS: Intervals: Rate: 110 ME: 130 QRSD: 80 QT: 348 QTc: 470 [place]: P: 50 ME: 130 QRS: 7 T: 65 INTERPRETIVE STATEMENTS: Sinus tachycardia Otherwise normal ECG Compared to ECG 05/14/2018 10:47:07 Sinus rhythm no longer present Electronically Signed On 02-26-19 16:19:24 CDT by Bony Soriano
[2019-02-26] MEDS ORDERED: KETOROLAC 30 MG/ML INJ ONE (16:44)
[2019-02-26] MEDS ORDERED: FENTANYL CITR 100 MCG/2 ML ONE (17:55)
--- NOTE | 2019-02-26 18:05 | ER ---
Nurse's Notes [facility] Name: Dwayne Walker Jr Age: 48 yrs Sex: Male : 1970 Arrival Date: 02/26/2019 Time: 13:56 Bed 24 Private MD: Diagnosis: Chest pain, unspecified;Hypertensive heart disease Presentation: 02/26 13:57 Presenting complaint: EMS states: pt c/o chest pain for 1.5 hrs ago that describes as ca1 sharp across chest and radiates tot he back and L arm and leg. Pt had a history of blood clots from leg that travelled through the lungs. Leg clots was from a traumatic injury. Pt is taking plavix. Transition of care: patient was not received from another setting of care. Onset of symptoms was February 26, 2019 at 12:30. Risk Assessment: Do you want to hurt yourself or someone else? Patient reports no desire to harm self or others. Initial Sepsis Screen: Does the patient meet any 2 criteria? No. Patient's initial sepsis screen is negative. Does the patient have a suspected source of infection? No. Patient's initial sepsis screen is negative. Care prior to arrival: Medication(s) given: ASA, 81 mg, x 4, Nitroglycerin, 0.4 mg SL x 3, IV initiated. 18 GA, in the left antecubital area, Glucose check: 127. 13:57 Method Of Arrival: EMS: [facility] ca1 13:57 Acuity: FÉLIX 3 ca1 Triage Assessment: 14:02 General: Appears in no apparent distress. comfortable, Behavior is calm, cooperative, ca1 appropriate for age. Pain: Complains of pain in chest Pain radiates to back, left arm and left leg Pain currently is 9 out of 10 on a pain scale. Quality of pain is described as sharp, Pain began 1.5 hrs ago. Cardiovascular: Heart tones S1 S2 present Capillary refill < 3 seconds Patient's skin is warm and dry. Pulses are all present. Rhythm is sinus tachycardia. Historical: - Allergies: 14:02 No Known Allergies; ca1 - Home Meds: 14:02 Eliquis oral oral [Active]; ca1 - PMHx: 14:02 Chronic pain; DVT; GERD; Hypertension; Pulmonary Embolism; ca1 - PSHx: 14:02 Hip surg; Leg surg L; ca1 - Immunization history:: Adult Immunizations not up to date. - Social history:: Smoking status: Patient uses tobacco products, denies chronic smoking, but will smoke occasionally. - Ebola Screening: : Patient negative for fever greater than or equal to 101.5 degrees Fahrenheit, and additional compatible Ebola Virus Disease symptoms Patient denies exposure to infectious person Patient denies travel to an Ebola-affected area in the 21 days before illness onset No symptoms or risks identified at this time. Screenin:10 Abuse screen: Denies threats or abuse. Denies injuries from another. Nutritional ca1 screening: No deficits noted. Tuberculosis screening: No symptoms or risk factors identified. Fall Risk IV access (20 points). Assessment: 14:10 General: Appears in no apparent distress. comfortable, Behavior is calm, cooperative, ca1 appropriate for age. Pain: Complains of pain in chest Pain radiates to left leg and left arm and back Pain currently is 9 out of 10 on a pain scale. Quality of pain is described as sharp, Pain began 1.5 hrs ago. Neuro: Level of Consciousness is awake, alert, obeys commands, Oriented to person, place, time, situation. Cardiovascular: Heart tones S1 S2 present Capillary refill < 3 seconds Patient's skin is warm and dry. Pulses are all present. Edema is absent. Rhythm is sinus tachycardia. Respiratory: Airway is patent Respiratory effort is even, unlabored, Respiratory pattern is regular, symmetrical, Breath sounds are clear bilaterally. GI: Abdomen is round non-distended, Bowel sounds present X 4 quads. Abd is soft and non tender X 4 quads. : No deficits noted. No signs and/or symptoms were reported regarding the genitourinary system. EENT: No deficits noted. No signs and/or symptoms were reported regarding the EENT system. Derm: Skin is intact, is healthy with good turgor, Skin is pink, warm \T\ dry. Musculoskeletal: Circulation, motion, and sensation intact. Capillary refill < 3 seconds, Range of motion: intact in all extremities. 15:00 Reassessment: Patient appears in no apparent distress at this time. Patient and/or ca1 family updated on plan of care and expected duration. Pain level reassessed. Patient is alert, oriented x 3, equal unlabored respirations, skin warm/dry/pink. 15:52 Reassessment: Patient appears in no apparent distress at this time. Patient and/or ca1 family updated on plan of care and expected duration. Pain level reassessed. Patient is alert, oriented x 3, equal unlabored respirations, skin warm/dry/pink. 16:35 Reassessment: Patient appears in no apparent distress at this time. Patient and/or ca1 family updated on plan of care and expected duration. Pain level reassessed. Patient is alert, oriented x 3, equal unlabored respirations, skin warm/dry/pink. For repeat Trop and EKG at 1730. 17:11 Reassessment: Patient appears in no apparent distress at this time. Patient and/or ca1 family updated on plan of care and expected duration. Pain level reassessed. 17:48 Reassessment: Patient appears in no apparent distress at this time. Patient is alert, ca1 oriented x 3, equal unlabored respirations, skin warm/dry/pink. 18:30 Reassessment: Patient appears in no apparent distress at this time. Patient is alert, ca1 oriented x 3, equal unlabored respirations, skin warm/dry/pink. Vital Signs: 14:02 BP 134 / 94; Pulse 103; Resp 19 S; Temp 99.8(O); Pulse Ox 95% on R/A; Weight 97.52 kg ca1 (R); Height 5 ft. 7 in. (170.18 cm) (R); Pain 9/10; 15:45 BP 148 / 97; Pulse 79; Resp 19 S; Pulse Ox 19% on R/A; ca1 16:25 BP 141 / 92; Pulse 77; Resp 16 S; Pulse Ox 97% ; ca1 17:11 BP 161 / 103; Pulse 74; Resp 19 S; Pulse Ox 96% on R/A; ca1 17:48 BP 137 / 93; Pulse 86; Resp 19 S; Temp 98.1(TE); Pulse Ox 96% on R/A; ca1 18:30 BP 141 / 93; Pulse 73; Resp 15 S; Temp 97.2(TE); Pulse Ox 97% on R/A; ca1 14:02 Body Mass Index 33.67 (97.52 kg, 170.18 cm) ca1 ED Course: 13:56 Patient arrived in ED. ca1 13:58 Chris Tomlinson PA is PHCP. cp 13:58 Jaycob Jasmine MD is Attending Physician. cp 13:59 Triage completed. ca1 14:02 Arm band placed on right wrist. EKG completed in triage. Results shown to MD. ca1 14:05 EKG done, by sterilisation technician. reviewed by Chris CONSTANTINO. dt2 14:10 Patient has correct armband on for positive identification. Placed in gown. Bed in low ca1 position. Call light in reach. Side rails up X 1. classroom monitor on. Pulse ox on. NIBP on. Warm blanket given. 14:10 No provider procedures requiring assistance completed. Patient maintains SpO2 ca1 saturation greater than 95% on room air. 14:10 Maintain EMS IV. Dressing intact. Good blood return noted. Site clean \T\ dry. Gauge \T\ ca 1 site: 18 LAC. IV. 14:14 X-ray completed. Portable x-ray completed in exam room. Patient tolerated procedure sw well. 14:15 XRAY Chest (1 view) In Process Unspecified. EDMS 14:17 Initial lab(s) drawn, by me, sent to lab. Inserted saline lock: 20 gauge in right lt1 antecubital area, using aseptic technique. 14:22 Andria Pereira, RN is Primary Nurse. ca1 14:48 US Extremity Venous Unilateral Ltd In Process Unspecified. EDMS 15:12 CT Chest For PE Angio In Process Unspecified. EDMS 15:29 US Abdomen Limited In Process Unspecified. EDMS 18:04 Sundar Santos MD is Referral Physician. cp 18:41 IV discontinued, intact, bleeding controlled, No redness/swelling at site. Pressure ca1 dressing applied. Administered Medications: 16:34 Drug: TORadol 30 mg Route: IVP; Site: left antecubital; ca1 17:31 Follow up: Response: No adverse reaction; Pain is unchanged, physician notified ca1 17:44 Drug: fentaNYL (PF) 25 mcg Route: IVP; Site: left antecubital; ca1 18:40 Follow up: Response: No adverse reaction; Pain is decreased ca1 17:54 Drug: Aspirin Chewable Tablet 324 mg Route: PO; ca1 18:41 Follow up: Response: No adverse reaction; Pain is decreased ca1 Outcome: 18:04 Discharge ordered by . cp 18:41 Discharged to home ambulatory. ca1 18:41 Condition: stable 18:41 Discharge instructions given to patient, Instructed on discharge instructions, follow up and referral plans. medication usage, Demonstrated understanding of instructions, follow-up care, medications, Prescriptions given X 1. 18:42 Patient left the ED. ca1 Signatures: Dispatcher [employer] EDMS Meredith Batista Corey, PA PA cp Teague, Danielle dt2 Andria Pereira RN RN ca1 KrysGely lt1 Corrections: (The following items were deleted from the chart) 15: 15:45 Abuse screen: Denies threats or abuse. Denies injuries from another. ca1 ca1 15:45 Nutritional screening: No deficits noted. ca1 ca1 15:45 Tuberculosis screening: No symptoms or risk factors identified. ca1 ca1 15:45 Fall Risk IV access (20 points). ca1 ca1
--- NOTE | 2019-02-26 18:05 | EDPHYS ---
Physician Documentation [facility] Name: Dwayne Walker Jr Age: 48 yrs Sex: Male : 1970 Arrival Date: 02/26/2019 Time: 13:56 Bed 24 Private MD: ED Physician Jaycob Jasmine HPI: 02/26 14:05 This 48 yrs old Male presents to ER via EMS with complaints of Chest Pain > 30 cp y/o. 14:05 The patient or guardian reports chest pain that is located primarily in the anterior cp chest wall, bilaterally. 14:05 Onset: 1.5 hour(s) ago. The pain radiates to back. Associated signs and symptoms: cp Pertinent positives: shortness of breath, left leg pain and left leg swelling, Pertinent negatives: abdominal pain, diaphoresis, dizziness, headache, syncope. The chest pain is described as sharp. Duration: The patient or guardian reports a single episode, that is still ongoing. Severity of pain: in the emergency department the pain is unchanged despite home interventions. Patient reports history of left leg DVT and left lung pulmonary embolism. Patient reports he is prescribed Eliquis but admits to not taking medication twice daily as prescribed and admits to forgetting to take medication. Patient also reports he is prescribed Lisinopril but ran out of medication. Historical: - Allergies: 14:02 No Known Allergies; ca1 - Home Meds: 14:02 Eliquis oral oral [Active]; ca1 - PMHx: 14:02 Chronic pain; DVT; GERD; Hypertension; Pulmonary Embolism; ca1 - PSHx: 14:02 Hip surg; Leg surg L; ca1 - Immunization history:: Adult Immunizations not up to date. - Social history:: Smoking status: Patient uses tobacco products, denies chronic smoking, but will smoke occasionally. - Ebola Screening: : Patient negative for fever greater than or equal to 101.5 degrees Fahrenheit, and additional compatible Ebola Virus Disease symptoms Patient denies exposure to infectious person Patient denies travel to an Ebola-affected area in the 21 days before illness onset No symptoms or risks identified at this time. ROS: 14:10 Constitutional: Negative for body aches, chills, fever, poor PO intake. cp 14:10 Eyes: Negative for injury, pain, redness, and discharge. cp 14:10 ENT: Negative for drainage from ear(s), ear pain, sore throat, difficulty swallowing, difficulty handling secretions. 14:10 Cardiovascular: Positive for chest pain, Negative for edema, palpitations. 14:10 Respiratory: Negative for cough, shortness of breath, wheezing. 14:10 Abdomen/GI: Negative for abdominal pain, nausea, vomiting, and diarrhea, black/tarry stool, rectal bleeding. 14:10 Back: Positive for radiated pain, Negative for injury or acute deformity. 14:10 : Negative for urinary symptoms. 14:10 MS/extremity: Positive for pain, swelling, tenderness, of the left leg, Negative for injury or acute deformity, decreased range of motion, paresthesias. 14:10 Skin: Negative for cellulitis, rash. 14:10 Neuro: Negative for altered mental status, headache, syncope, weakness. 14:10 All other systems are negative. Exam: 14:10 ECG was reviewed by the Attending Physician. cp 14:15 Constitutional: The patient appears in no acute distress, alert, awake, cp non-diaphoretic, non-toxic, well developed, well nourished. 14:15 Head/Face: Normocephalic, atraumatic. Eyes: Pupils equal round and reactive to light, cp extra-ocular motions intact. Lids and lashes normal. Conjunctiva and sclera are non-icteric and not injected. Cornea within normal limits. Periorbital areas with no swelling, redness, or edema. ENT: Nares patent. No nasal discharge, no septal abnormalities noted. Tympanic membranes are normal and external auditory canals are clear. Oropharynx with no redness, swelling, or masses, exudates, or evidence of obstruction, uvula midline. Mucous membranes moist. Neck: Trachea midline, no thyromegaly or masses palpated, and no cervical lymphadenopathy. Supple, full range of motion without nuchal rigidity, or vertebral point tenderness. No Meningismus. Chest/axilla: Normal chest wall appearance and motion. Nontender with no deformity. No lesions are appreciated. 14:15 Cardiovascular: Rate: tachycardic, Rhythm: regular, Heart sounds: murmur, not appreciated, Edema: ankle edema, that is very mild, left ankle, JVD: is not appreciated. 14:15 Respiratory: the patient does not display signs of respiratory distress, Respirations: normal, no use of accessory muscles, no retractions, no splinting, no tachypnea, labored breathing, is not present, Breath sounds: are clear throughout, no decreased breath sounds, no stridor, no wheezing. 14:15 Abdomen/GI: Inspection: abdomen appears normal, Bowel sounds: active, all quadrants, Palpation: abdomen is soft and non-tender, in all quadrants, rebound tenderness, is not appreciated, voluntary guarding, is not appreciated, involuntary guarding, is not appreciated. 14:15 Back: ROM is normal, CVA tenderness, is absent. 14:15 Musculoskeletal/extremity: DVT Exam: no erythema, no increased warmth, pain, that is mild, of the left leg, swelling, that is mild, of the left leg, tenderness, that is mild, of the left leg. 14:15 Skin: cellulitis, is not appreciated, no rash present. 14:15 Neuro: Orientation: to person, place \T\ time. Mentation: is normal, Motor: moves all fours, strength is normal, Sensation: no obvious gross deficits. 17:30 ECG was reviewed by the Attending Physician. Vital Signs: 14:02 BP 134 / 94; Pulse 103; Resp 19 S; Temp 99.8(O); Pulse Ox 95% on R/A; Weight 97.52 kg ca1 (R); Height 5 ft. 7 in. (170.18 cm) (R); Pain 9/10; 15:45 BP 148 / 97; Pulse 79; Resp 19 S; Pulse Ox 19% on R/A; ca1 16:25 BP 141 / 92; Pulse 77; Resp 16 S; Pulse Ox 97% ; ca1 17:11 BP 161 / 103; Pulse 74; Resp 19 S; Pulse Ox 96% on R/A; ca1 17:48 BP 137 / 93; Pulse 86; Resp 19 S; Temp 98.1(TE); Pulse Ox 96% on R/A; ca1 18:30 BP 141 / 93; Pulse 73; Resp 15 S; Temp 97.2(TE); Pulse Ox 97% on R/A; ca1 14:02 Body Mass Index 33.67 (97.52 kg, 170.18 cm) ca1 MDM: 13:58 Patient medically screened. cp 18:03 The patient was given aspirin in the Emergency Department. cp 18:03 Data reviewed: vital signs, nurses notes, lab test result(s), EKG, radiologic studies, cp CT scan, plain films, ultrasound. Test interpretation: by ED physician or midlevel provider: ECG, plain radiologic studies. 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 Response to treatment: the patient's symptoms have markedly improved after treatment. ED course: VSS. Radiology studies negative for acute findings. Pain improved. Initial and repeat EKGs and troponin negative. Will discharge to home for continued monitoring. 02/26 14:00 Order name: Basic Metabolic Panel; Complete Time: 14:54 02/26 14:54 Interpretation: Normal except: CL 109; GLUC 124. 02/26 14:00 Order name: CBC with Diff; Complete Time: 14:54 02/26 14:55 Interpretation: Normal except: RBC 5.61; HGB 18.2; HCT 55.0; MCV 98.0; EOSINOPHIL % 4.7. 02/26 14:00 Order name: LFT's; Complete Time: 14:54 02/26 17:22 Interpretation: Normal except: AST 56; ALK 131; BILIT 1.1; BILID 0.4; TP 8.4; GLOB 4.8; cp A/G 0.8. 02/26 14:00 Order name: Magnesium; Complete Time: 14:54 02/26 14:00 Order name: NT PRO-BNP; Complete Time: 14:54 02/26 14:00 Order name: PT-INR; Complete Time: 14:54 02/26 14:00 Order name: Troponin (emerg Dept Use Only); Complete Time: 14:54 02/26 16:02 Interpretation: Reviewed. 02/26 14:00 Order name: XRAY Chest (1 view); Complete Time: 14:54 02/26 14:08 Order name: US Extremity Venous Unilateral Ltd; Complete Time: 16:01 02/26 14:56 Order name: US Abdomen Limited; Complete Time: 16:01 cp 02/26 14:58 Order name: CT Chest For PE Angio; Complete Time: 16:01 02/26 16:02 Interpretation: Report reviewed. 02/26 16:29 Order name: Troponin (emerg Dept Use Only); Complete Time: 18:01 em1 02/26 14:00 Order name: EKG; Complete Time: 14:02 cp 02/26 14:00 Order name: Cardiac monitoring; Complete Time: 14:22 cp 02/26 14:00 Order name: EKG - Nurse/Tech; Complete Time: 14:05 cp 02/26 14:00 Order name: IV Saline Lock; Complete Time: 14:05 cp 02/26 14:00 Order name: Labs collected and sent; Complete Time: 14:05 02/26 14:00 Order name: O2 Per Protocol; Complete Time: 14:05 cp 02/26 14:00 Order name: O2 Sat Monitoring; Complete Time: 14:05 cp 02/26 16:35 Order name: EKG; Complete Time: 16:36 ca1 02/26 16:35 Order name: EKG - Nurse/Tech; Complete Time: 17:31 ca1 EC:10 Rate is 110 beats/min. Rhythm is regular. DE interval is normal. QRS interval is cp normal. QT interval is normal. T waves are Flattened in lead aVL. Interpreted by me. Reviewed by me. 17:30 Rate is 71 beats/min. Rhythm is regular. DE interval is normal. QRS interval is normal. cp QT interval is normal. Interpreted by me. Reviewed by me. Administered Medications: 16:34 Drug: TORadol 30 mg Route: IVP; Site: left antecubital; ca1 17:31 Follow up: Response: No adverse reaction; Pain is unchanged, physician notified ca1 17:44 Drug: fentaNYL (PF) 25 mcg Route: IVP; Site: left antecubital; ca1 18:40 Follow up: Response: No adverse reaction; Pain is decreased ca1 17:54 Drug: Aspirin Chewable Tablet 324 mg Route: PO; ca1 18:41 Follow up: Response: No adverse reaction; Pain is decreased ca1 Disposition: 19:02 Co-signature as Attending Physician, Jaycob Jasmine MD Available for consultation at [facility] all times . Disposition: 02/26/19 18:04 Discharged to Home. Impression: Chest pain, unspecified, Hypertensive heart disease. - Condition is Stable. - Discharge Instructions: Nonspecific Chest Pain, Hypertension, How to Take Your Blood Pressure, [id number]-[id number], Aspirin and Your Heart, Managing Your Hypertension. - Prescriptions for Lisinopril 20 mg Oral Tablet - take 1 tablet by ORAL route once daily; 30 tablet. - Medication Reconciliation Form, Thank You Letter, Antibiotic Education, Prescription Opioid Use form. - Follow up: Sundar Santos MD; When: 1 - 2 days; Reason: Recheck today's complaints. - Problem is new. - Symptoms have improved. Signatures: Dispatcher [employer] EDMS Chris Tomlinson PA PA cp Jaycob Jasmine MD MD ps1 Andria Pereira RN RN ca1 Corrections: (The following items were deleted from the chart) 18:42 18:04 02/26/2019 18:04 Discharged to Home. Impression: Chest pain, unspecified; ca1 Hypertensive heart disease. Condition is Stable. Forms are Medication Reconciliation Form, Thank You Letter, Antibiotic Education, Prescription Opioid Use. Follow up: Sundar Santos; When: 1 - 2 days; Reason: Recheck today's complaints. Problem is new. Symptoms have improved. cp
[2019-02-26] MEDS ORDERED: ASPIRIN 81 MG CHEWABLE TABLET ONE (18:09)
[2019-02-26 20:53] VITALS: BP 141/93; TEMP 97.2; O2SAT 97
--- NOTE | 2019-02-27 08:14 | EKG ---
Test Date: 2019-02-26 Test Time: 17:27:38 Repairer Veneer Sheet: NAVARRO MEASUREMENT RESULTS: Intervals: Rate: 71 WA: 162 QRSD: 94 QT: 414 QTc: 449 Piqua: P: 43 WA: 162 QRS: 20 T: 32 INTERPRETIVE STATEMENTS: Normal sinus rhythm Normal ECG Compared to ECG 02/26/2019 13:59:05 Sinus tachycardia no longer present Electronically Signed On 02-27-19 08:11:44 CDT by Bony Soriano
== END 2019-02-26 18:42 | disposition home or self-care (01) ==
LOC: ER 13:52
DX: I11.9 Hypertensive heart disease without heart failure (principal); I10 Essential (primary) hypertension; Z72.0 Tobacco use; Z79.01 Long term (current) use of anticoagulants; Z86.718 Personal history of other venous thrombosis and embolism
CPT/HCPCS: 36415; 71045; 71275; 76705; 80048; 80076; 83735; 83880; 84484; 85025; 85610; 93005; 93971; 96374; 96375; 99285; J3010; Q9967

== ENCOUNTER 2019-04-05 22:51 | Emergency (ER) | payer OTHER ==
[2019-04-05 23:24] LABS: Absolute Lymphocytes (CBC) 1.4 K/uL (0.7-4.9); Basophils % 0.4 % (0-1.3); Hematocrit 53.6 % (39.6-49.0); MPV 8.1 fL (7.6-11.3); RBC Red Blood Cell Count 5.49 M/uL (4.33-5.43)
[2019-04-05 23:25] LABS: Protime INR 1.06
[2019-04-05] MEDS ORDERED: NA CHLORIDE 0.9% 1,000 ML ONE (23:26)
--- OUTSIDE RECORDS SUMMARY | 2019-04-05 23:34 | XMS REPORT ---
:1970 [facility] [address] [place] [address] Dr. Allred [address] [place] [id number] Care Team Providers Name Role Phone Unavailable Unavailable Unavailable Problems This patient has no known problems. Allergies, Adverse Reactions, Alerts This patient has no known allergies or adverse reactions. Medications This patient has no known medications.
[2019-04-05 23:44] LABS: ALT/SGPT 76 U/L (12-78); AST/SGOT 55 U/L (15-37); Albumin 3.8 g/dL (3.4-5.0); Alkaline Phosphatase 135 U/L (45-117); BUN Blood Urea Nitrogen 15 mg/dL (7-18); Bicarbonate 26 mmol/L (21-32); Bilirubin Direct 0.5 mg/dL (0-0.2); Bilirubin Total 1.2 mg/dL (0.2-1.0); Glucose Level 154 mg/dL (74-106); Magnesium 2.1 mg/dL (1.8-2.4); NT PRO-BNP 16 pg/mL (<125); Potassium 4.1 mmol/L (3.5-5.1); Protein, Total 8.5 g/dL (6.4-8.2); Sodium Level 138 mmol/L (136-145); Troponin (Emerg Dept Use Only) < 0.02 ng/mL (0.0-0.045)
[2019-04-06 00:06] LABS: Barbiturates NEGATIVE (NEGATIVE); Benzodiazepines NEGATIVE (NEGATIVE); Cocaine NEGATIVE (NEGATIVE); METHAMPHETAM NEGATIVE (NEGATIVE); Methadone NEGATIVE (NEGATIVE); Opiates POSITIVE (NEGATIVE); Phencyclidine NEGATIVE (NEGATIVE); THC Cannibis NEGATIVE (NEGATIVE)
[2019-04-06 00:26] LABS: Urine Blood NEGATIVE (NEG); Urine Glucose NEGATIVE (NEG); Urine Protein TRACE (NEG); Urine Specific Gravity 1.025 (1.005-1.030)
[2019-04-06] MEDS ORDERED: NA CHLORIDE 0.9% 1,000 ML ONE (01:46)
[2019-04-06] MEDS ORDERED: KETOROLAC 30 MG/ML INJ ONE (02:24)
--- NOTE | 2019-04-06 05:20 | ER ---
Nurse's Notes [facility] Name: Dwayne Walker Jr Age: 48 yrs Sex: Male : 1970 Arrival Date: 04/05/2019 Time: 22:54 Bed 7 Private MD: Diagnosis: Atypical chest pain Presentation: 04/05 22:54 Presenting complaint: Patient states: that he was cooking at approx 2100 and noted his fc legs became shaky. Then the shakiness went up his body which caused him to have a HARVEY and become dizzy. Pt admits to having 2 monsters today which he never drinks. . Then he started to have chest pain which is a burning constant pain. Also having shortness of breath and nausea. Transition of care: patient was not received from another setting of care. Onset of symptoms was April 05, 2019 at 21:00. Risk Assessment: Do you want to hurt yourself or someone else? Patient reports no desire to harm self or others. Initial Sepsis Screen: Does the patient meet any 2 criteria? HR > 90 bpm. Yes Does the patient have a suspected source of infection? No. Patient's initial sepsis screen is negative. Care prior to arrival: Glucose check: 127 bp of 160/90, heart rate of 113, sats of 97%. 22:54 Method Of Arrival: EMS: [facility] 22:54 Acuity: FÉLIX 3 fc Historical: - Allergies: 23:04 No Known Allergies; fc - Home Meds: 23:04 lisinopril 20 mg Oral tab 1 tab once daily [Active]; Eliquis 5 mg oral tab 1 tab 2 fc times per day [Active]; gabapentin 800 mg oral tab 1 tab 3 times per day [Active]; 04/06 02:06 OxyContin 30 mg Oral Tb12 four times a day [Active]; lp1 - PMHx: 04/05 23:04 High Cholesterol; Hypertension; Anxiety; Chronic pain; Pulmonary Embolism; DVT; GERD; fc - PSHx: 23:04 Hip surg bilateral; Leg surg L; fc - Immunization history:: Last tetanus immunization: up to date. - Social history:: Smoking status: Patient uses tobacco products, smokes one-half pack cigarettes per day, Patient uses alcohol, claims drinking about a 6 pack/day. Patient/guardian denies using street drugs. - Ebola Screening: : Patient negative for fever greater than or equal to 101.5 degrees Fahrenheit, and additional compatible Ebola Virus Disease symptoms Patient denies exposure to infectious person Patient denies travel to an Ebola-affected area in the 21 days before illness onset. Screenin:02 Abuse screen: Denies threats or abuse. Nutritional screening: No deficits noted. fc Tuberculosis screening: No symptoms or risk factors identified. Fall Risk None identified. Assessment: 23:15 General: Appears in no apparent distress. Behavior is appropriate for age. Pain: lp1 Complains of pain in chest Pain radiates to abdomen Pain currently is 8 out of 10 on a pain scale. Quality of pain is described as sharp, Pain began 2 hours ago. Is continuous. Neuro: Level of Consciousness is awake, alert, obeys commands, Oriented to person, place, time, situation, Reports dizziness, headache paresthesias in right arm, left arm, right leg and left leg. Cardiovascular: Patient's skin is warm and dry. Respiratory: Respiratory effort is even, unlabored, Breath sounds are clear bilaterally. GI: Abdomen is non-distended, Abdomen is tender to palpation X 4 quads. : No signs and/or symptoms were reported regarding the genitourinary system. EENT: No signs and/or symptoms were reported regarding the EENT system. Derm: Skin is pink, warm \T\ dry. Musculoskeletal: Circulation, motion, and sensation intact. 04/06 00:30 Reassessment: Patient and/or family updated on plan of care and expected duration. Pain lp1 level reassessed. Patient is alert, oriented x 3, equal unlabored respirations, skin warm/dry/pink. Patient appears in no apparent distress. 01:30 Reassessment: Patient and/or family updated on plan of care and expected duration. Pain lp1 level reassessed. Patient complaint of pain to back, chronic pain related to injury from years ago; States discomfort in stretcher; Provider notified. 02:30 Reassessment: Reassessment: Patient and/or family updated on plan of care and expected lp1 duration. Pain level reassessed. Patient repositioned for comfort to back. 03:30 Reassessment: Patient appears in no apparent distress at this time. Patient and/or lp1 family updated on plan of care and expected duration. Pain level reassessed. Patient resting, eyes closed, respirations unlabored. 04:30 Reassessment: Patient appears in no apparent distress at this time. No changes from lp1 previously documented assessment. Patient and/or family updated on plan of care and expected duration. Pain level reassessed. 05:30 Reassessment: Patient is alert, oriented x 3, equal unlabored respirations, skin lp1 warm/dry/pink. Patient states feeling better. Patient states symptoms have improved. Vital Signs: 04/05 22:54 BP 134 / 98; Pulse 103; Resp 18; Temp 98.2(O); Pulse Ox 96% on R/A; Weight 97.52 kg fc (R); Height 5 ft. 7 in. (170.18 cm) (R); Pain 8/10; 23:45 BP 134 / 95; Pulse 102; Resp 20; Pulse Ox 95% on R/A; lp1 04/06 00:45 BP 148 / 89; Pulse 95; Resp 18; Pulse Ox 95% on R/A; lp1 01:30 BP 128 / 82; Pulse 91; Resp 18; Pulse Ox 98% on R/A; lp1 02:30 BP 128 / 95; Pulse 74; Resp 14; Pulse Ox 96% on R/A; lp1 04:00 BP 126 / 85; Pulse 70; Resp 16; Pulse Ox 94% on R/A; lp1 05:15 BP 122 / 95; Pulse 66; Resp 18; Temp 97.4(TE); Pulse Ox 98% on R/A; Pain 3/10; lp1 04/05 22:54 Body Mass Index 33.67 (97.52 kg, 170.18 cm) fc ED Course: 04/05 22:54 Patient arrived in ED. ds1 22:54 Arm band placed on Patient placed in an exam room, on a stretcher. fc 23:00 Erik Pérez MD is Attending Physician. tw4 23:01 Triage completed. fc 23:02 Patient has correct armband on for positive identification. Placed in gown. Bed in low fc position. Call light in reach. Side rails up X2. monitor worker on. Pulse ox on. NIBP on. 23:02 No provider procedures requiring assistance completed. Patient maintains SpO2 fc saturation greater than 95% on room air. 23:11 Inserted saline lock: 20 gauge in right antecubital area, using aseptic technique. mw2 Blood collected. 23:15 X-ray completed. Portable x-ray completed in exam room. Patient tolerated procedure kw well. 23:22 Paty Cam, RN is Primary Nurse. lp1 23:24 XRAY Chest (1 view) In Process Unspecified. EDMS 04/06 05:39 IV discontinued, No redness/swelling at site. Pressure dressing applied. lp1 Administered Medications: 04/05 23:25 Drug: NS 0.9% 1000 ml Route: IV; Rate: 1 bolus; Site: right antecubital; lp1 04/06 01:00 Follow up: IV Status: Completed infusion; IV Intake: 1000ml lp1 01:49 Drug: NS 0.9% 1000 ml Route: IV; Rate: 1 bolus; Site: right antecubital; jd3 03:30 Follow up: IV Status: Completed infusion; IV Intake: 1000ml lp1 02:30 Drug: TORadol 30 mg Route: IVP; Site: right antecubital; lp1 03:30 Follow up: Response: No adverse reaction lp1 Intake: 01:00 IV: 1000ml; Total: 1000ml. lp1 03:30 IV: 1000ml; Total: 2000ml. lp1 Outcome: 05:19 Discharge ordered by . tw4 05:39 Discharged to home ambulatory. lp1 05:39 Condition: good 05:39 Discharge instructions given to patient, Instructed on discharge instructions, follow up and referral plans. Demonstrated understanding of instructions, follow-up care. 05:47 Patient left the ED. fc Signatures: Dispatcher [employer] EDNJ Zaina Naik RN RN Ruby Ye ds1 Nemo Malik Laura, RN RN lp1 Mendez Keyes RN RN jd3 Wadley, Terrence, MD MD tw4 Heavenly Marlow mw2 Corrections: (The following items were deleted from the chart) 05:38 05:37 Reassessment: lp1 lp1
--- NOTE | 2019-04-06 05:21 | EDPHYS ---
Physician Documentation [facility] Name: Dwayne Walker Jr Age: 48 yrs Sex: Male : 1970 Arrival Date: 04/05/2019 Time: 22:54 Bed 7 Private MD: ED Physician Erik Pérez HPI: 04/06 03:53 This 48 yrs old Male presents to ER via EMS with complaints of Chest Pain. tw4 03:53 The patient or guardian reports chest pain that is located primarily in the epigastric tw4 area. Onset: today. The pain does not radiate. Associated signs and symptoms: Pertinent positives: shaking all over. The chest pain is described as dull. Duration: The patient or guardian reports a single episode. The patient has not experienced similar symptoms in the past. Historical: - Allergies: 04/05 23:04 No Known Allergies; fc - Home Meds: 23:04 lisinopril 20 mg Oral tab 1 tab once daily [Active]; Eliquis 5 mg oral tab 1 tab 2 fc times per day [Active]; gabapentin 800 mg oral tab 1 tab 3 times per day [Active]; 04/06 02:06 OxyContin 30 mg Oral Tb12 four times a day [Active]; lp1 - PMHx: 04/05 23:04 High Cholesterol; Hypertension; Anxiety; Chronic pain; Pulmonary Embolism; DVT; GERD; fc - PSHx: 23:04 Hip surg bilateral; Leg surg L; fc - Immunization history:: Last tetanus immunization: up to date. - Social history:: Smoking status: Patient uses tobacco products, smokes one-half pack cigarettes per day, Patient uses alcohol, claims drinking about a 6 pack/day. Patient/guardian denies using street drugs. - Ebola Screening: : Patient negative for fever greater than or equal to 101.5 degrees Fahrenheit, and additional compatible Ebola Virus Disease symptoms Patient denies exposure to infectious person Patient denies travel to an Ebola-affected area in the 21 days before illness onset. ROS: 04/06 03:53 Constitutional: Negative for fever, chills, and weight loss, Eyes: Negative for injury, tw4 pain, redness, and discharge, Respiratory: Negative for shortness of breath, cough, wheezing, and pleuritic chest pain, Abdomen/GI: Negative for abdominal pain, nausea, vomiting, diarrhea, and constipation, Back: Negative for injury and pain, MS/Extremity: Negative for injury and deformity. Skin: Negative for injury, rash, and discoloration. Cardiovascular: Positive for chest pain, Negative for edema, orthopnea, palpitations, paroxysmal nocturnal dyspnea. Exam: 03:53 Constitutional: This is a well developed, well nourished patient who is awake, alert, tw4 and in no acute distress. Head/Face: Normocephalic, atraumatic. Eyes: Pupils equal round and reactive to light, extra-ocular motions intact. Lids and lashes normal. Conjunctiva and sclera are non-icteric and not injected. Cornea within normal limits. Periorbital areas with no swelling, redness, or edema. Cardiovascular: Regular rate and rhythm with a normal S1 and S2. No gallops, murmurs, or rubs. Normal PMI, no JVD. No pulse deficits. Respiratory: Lungs have equal breath sounds bilaterally, clear to auscultation and percussion. No rales, rhonchi or wheezes noted. No increased work of breathing, no retractions or nasal flaring. Abdomen/GI: Soft, non-tender, with normal bowel sounds. No distension or tympany. No guarding or rebound. No evidence of tenderness throughout. Back: No spinal tenderness. No costovertebral tenderness. Full range of motion. MS/ Extremity: Pulses equal, no cyanosis. Neurovascular intact. Full, normal range of motion. Neuro: Awake and alert, GCS 15, oriented to person, place, time, and situation. Cranial nerves II-XII grossly intact. Motor strength 5/5 in all extremities. Sensory grossly intact. Cerebellar exam normal. Normal gait. Vital Signs: 04/05 22:54 BP 134 / 98; Pulse 103; Resp 18; Temp 98.2(O); Pulse Ox 96% on R/A; Weight 97.52 kg fc (R); Height 5 ft. 7 in. (170.18 cm) (R); Pain 8/10; 23:45 BP 134 / 95; Pulse 102; Resp 20; Pulse Ox 95% on R/A; lp1 04/06 00:45 BP 148 / 89; Pulse 95; Resp 18; Pulse Ox 95% on R/A; lp1 01:30 BP 128 / 82; Pulse 91; Resp 18; Pulse Ox 98% on R/A; lp1 02:30 BP 128 / 95; Pulse 74; Resp 14; Pulse Ox 96% on R/A; lp1 04:00 BP 126 / 85; Pulse 70; Resp 16; Pulse Ox 94% on R/A; lp1 05:15 BP 122 / 95; Pulse 66; Resp 18; Temp 97.4(TE); Pulse Ox 98% on R/A; Pain 3/10; lp1 04/05 22:54 Body Mass Index 33.67 (97.52 kg, 170.18 cm) fc MDM: 04/05 23:00 Patient medically screened. tw4 04/06 05:14 Differential diagnosis: acute myocardial infarction, pancreatitis, peptic ulcer tw4 disease, pericarditis, pulmonary embolus, stable angina, thoracic aortic disection. Data reviewed: vital signs, nurses notes. Data interpreted: Pulse oximetry: Interpretation: normal. Data interpreted: campus monitor: rhythm is normal sinus rhythm. Counseling: I had a detailed discussion with the patient and/or guardian regarding: the historical points, exam findings, and any diagnostic results supporting the discharge/admit diagnosis. Special discussion: Based on the patient's history, exam, and Dx evaluation, there is no indication for emergent intervention or inpatient Tx. It is understood by the patient/guardian that if the Sx's persist or worsen they need to return immediately for re-evaluation. I discussed with the patient/guardian in detail that at this point there is no indication for admission to the hospital. It is understood, however, that if the symptoms persist or worsen the patient needs to return immediately for re-evaluation. ED course: Pt had neg workup in the Ed which consisted of 2 normal trop. Will have patient followup as an outpatient .Pt instructed to return to the ED if symptoms worsen. 04/05 23:01 Order name: Basic Metabolic Panel; Complete Time: :34 04/06 01:36 Interpretation: Normal except: GLUC 154; GFR 85. 04/05 23:01 Order name: CBC with Diff; Complete Time: :34 04/06 01:36 Interpretation: WBC 11.1; RBC 5.49; HGB 18.0; HCT 53.6. tw04/05 23:01 Order name: LFT's; Complete Time: 01:34 tw4 /16 01:36 Interpretation: Normal except: AST 55; ALK 135; BILIT 1.2; BILID 0.5; TP 8.5; GLOB 4.7; tw4 A/G 0.8. 04/05 23:01 Order name: Magnesium; Complete Time: 01:35 04/06 01:37 Interpretation: Within normal limits: MG 2.1. 04/05 23:01 Order name: NT PRO-BNP; Complete Time: 01:35 04/06 01:37 Interpretation: Within normal limits: NT PRO-BNP 16. 04/05 23:01 Order name: PT-INR; Complete Time: 01:35 04/06 01:37 Interpretation: Within normal limits: PT 12.5. 04/05 23:01 Order name: Troponin (emerg Dept Use Only); Complete Time: 01:35 [facility] 04/06 01:37 Interpretation: Within normal limits: TROPED < 0.02. 04/05 23:01 Order name: XRAY Chest (1 view) 04/05 23:01 Order name: Urine Drug Screen; Complete Time: 01:34 04/06 01:37 Interpretation: Normal except: OPI POSITIVE. 04/05 23:13 Order name: ETOH Level; Complete Time: 01:35 04/06 01:37 Interpretation: ETOH < 3. 04/05 23:52 Order name: Urine Dipstick--Ancillary (enter results); Complete Time: 01:35 [facility] 04/06 01:37 Interpretation: Normal except: UKET 1+. 04/06 03:30 Order name: Troponin (emerg Dept Use Only) 04/05 23:01 Order name: EKG; Complete Time: 23:03 04/05 23:01 Order name: Cardiac monitoring; Complete Time: 23:02 04/05 23:01 Order name: EKG - Nurse/Tech; Complete Time: 23:03 04/05 23:01 Order name: IV Saline Lock; Complete Time: 23:13 04/05 23:01 Order name: Labs collected and sent; Complete Time: 23:13 [facility] 04/05 23:01 Order name: O2 Per Protocol; Complete Time: 23:03 04/05 23:01 Order name: O2 Sat Monitoring; Complete Time: : tw4 EC:53 Rate is 108 beats/min. Rhythm is regular, Sinus tachycardia. QRS [place] is Normal. [place] tw4 interval is normal. QRS interval is normal. QT interval is normal. No Q waves. T waves are Normal. No ST changes noted. Clinical impression: Sinus tachycardia. Interpreted by me. Reviewed by me. Administered Medications: 04/05 23:25 Drug: NS 0.9% 1000 ml Route: IV; Rate: 1 bolus; Site: right antecubital; lp1 04/06 01:00 Follow up: IV Status: Completed infusion; IV Intake: 1000ml lp1 01:49 Drug: NS 0.9% 1000 ml Route: IV; Rate: 1 bolus; Site: right antecubital; jd3 03:30 Follow up: IV Status: Completed infusion; IV Intake: 1000ml lp1 02:30 Drug: TORadol 30 mg Route: IVP; Site: right antecubital; lp1 03:30 Follow up: Response: No adverse reaction lp1 Disposition: 04/06/19 05:19 Discharged to Home. Impression: Atypical chest pain. - Condition is Stable. - Discharge Instructions: Nonspecific Chest Pain. - Medication Reconciliation Form, Thank You Letter, Antibiotic Education, Prescription Opioid Use form. - Follow up: Private Physician; When: Upon discharge from the Emergency Department; Reason: If symptoms return, Recheck today's complaints, Continuance of care. - Problem is new. - Symptoms have improved. Signatures: Dispatcher [employer] EDMS Zaina Naik RN RN Paty Cam RN RN lp1 Mendez Keyes RN RN jd3 Erik Pérez MD MD tw4 Corrections: (The following items were deleted from the chart) 05:47 05:19 04/06/2019 05:19 Discharged to Home. Impression: Atypical chest pain. Condition fc is Stable. Forms are Medication Reconciliation Form, Thank You Letter, Antibiotic Education, Prescription Opioid Use. Follow up: Private Physician; When: Upon discharge from the Emergency Department; Reason: If symptoms return, Recheck today's complaints, Continuance of care. Problem is new. Symptoms have improved. tw4
[2019-04-06 06:27] VITALS: BP 122/95; TEMP 97.4; O2SAT 98
--- NOTE | 2019-04-06 08:48 | RAD REPORT ---
EXAM DESCRIPTION: Ashley Single View04/05/2019 11:28 pm CLINICAL HISTORY: Chest pain COMPARISON: February 2000 FINDINGS: The lungs appear clear of acute infiltrate. The heart is borderline enlarged IMPRESSION: No acute abnormalities displayed
--- NOTE | 2019-04-06 11:46 | EKG ---
Test Date: 2019-04-05 Test Time: 22:50:59 Card Fixer: SETH MEASUREMENT RESULTS: Intervals: Rate: 108 DE: 142 QRSD: 84 QT: 344 QTc: 460 Lottie: P: 39 DE: 142 QRS: 21 T: 47 INTERPRETIVE STATEMENTS: Sinus tachycardia Otherwise normal ECG Compared to ECG 02/26/2019 17:27:38 Sinus rhythm no longer present Electronically Signed On 04-06-19 11:44:56 CDT by Bony Soriano
== END 2019-04-06 05:47 | disposition home or self-care (01) ==
LOC: ER 22:51
DX: R07.89 Other chest pain (principal); F17.210 Nicotine dependence, cigarettes, uncomplicated; I10 Essential (primary) hypertension; E78.00 Pure hypercholesterolemia, unspecified; F41.9 Anxiety disorder, unspecified; Z79.01 Long term (current) use of anticoagulants; Z86.718 Personal history of other venous thrombosis and embolism
CPT/HCPCS: 96361; 93005; 85025; 80048; 36415; 80320; 83735; 85610; 80076; 80307 ×8; 81003; 84484 ×2; 83880; 71045; 96374; 99285; J7030 ×2

== ENCOUNTER 2019-09-11 21:22 | Emergency (ER) | payer OTHER ==
--- OUTSIDE RECORDS SUMMARY | 2019-09-11 21:24 | XMS REPORT ---
:1970 [facility] Address [address] [place] [address] Dr. Allred [address] [place] [id number] Care Team Providers Name Role Phone Unavailable Unavailable Unavailable Problems This patient has no known problems. Allergies, Adverse Reactions, Alerts This patient has no known allergies or adverse reactions. Medications This patient has no known medications.
[2019-09-11] MEDS ORDERED: NA CHLORIDE 0.9% 1,000 ML ONE (22:30)
[2019-09-11] MEDS ORDERED: ONDANSETRON 4 MG/2 ML VIAL ONE (22:30)
[2019-09-11 22:40] LABS: Basophils % 0.3 % (0-1.3); Hematocrit 45.9 % (39.6-49.0); MPV 7.2 fL (7.6-11.3); RBC Red Blood Cell Count 4.68 M/uL (4.33-5.43)
[2019-09-11 22:55] LABS: Albumin 3.7 g/dL (3.4-5.0); Bilirubin Direct 0.3 mg/dL (0-0.2); Bilirubin Total 0.8 mg/dL (0.2-1.0); Potassium 4.2 mmol/L (3.5-5.1); Protein, Total 8.5 g/dL (6.4-8.2)
[2019-09-11 23:06] LABS: Blood Morphology Comment NOT SEEN (NOT SEEN); Platelet Estimate ADEQ
--- NOTE | 2019-09-12 01:14 | EDPHYS ---
Physician Documentation [facility] Name: Dwayne Walker Jr Age: 49 yrs Sex: Male : 1970 Arrival Date: 09/11/2019 Time: 21:25 Bed 7 Private MD: ED Physician Erik Pérez HPI: 09/12 00:33 This 49 yrs old Male presents to ER via Ambulatory with complaints of tw4 Vomiting/Diarrhea. 00:33 The patient presents to the emergency department with nausea, vomiting, diarrhea. tw4 Onset: The symptoms/episode began/occurred today. Possible causes: unknown. The symptoms are aggravated by nothing. The symptoms are alleviated by nothing. The patient has not experienced similar symptoms in the past. Historical: - Allergies: 09/11 21:30 No Known Allergies; aa1 - Home Meds: 21:30 Eliquis 5 mg Oral tab 1 tab 2 times per day [Active]; gabapentin 800 mg Oral tab 1 tab aa1 3 times per day [Active]; lisinopril 20 mg Oral tab 1 tab once daily [Active]; hydrocodone-acetaminophen Oral [Active]; - PMHx: 21:30 Anxiety; Chronic pain; DVT; GERD; High Cholesterol; Hypertension; Pulmonary Embolism; aa1 - PSHx: 21:30 Hip surg bilateral; Leg surg L; aa1 - Immunization history:: Flu vaccine is up to date. - Social history:: Smoking status: Patient reports the use of cigarette tobacco products, denies chronic smoking, but will smoke occasionally. - Ebola Screening: : Patient denies exposure to infectious person Patient denies travel to an Ebola-affected area in the 21 days before illness onset. ROS: 09/12 00:33 Constitutional: Negative for fever, chills, and weight loss, Eyes: Negative for injury, tw4 pain, redness, and discharge, Cardiovascular: Negative for chest pain, palpitations, and edema, Respiratory: Negative for shortness of breath, cough, wheezing, and pleuritic chest pain, Back: Negative for injury and pain, MS/Extremity: Negative for injury and deformity, Skin: Negative for injury, rash, and discoloration, Neuro: Negative for headache, weakness, numbness, tingling, and seizure. Abdomen/GI: Positive for nausea, vomiting, diarrhea, Negative for abdominal pain, nausea and vomiting, nausea, vomiting, and diarrhea, constipation, abdominal cramps, abdominal distension, anorexia, dysphagia, hematemesis, black/tarry stool, rectal pain. Exam: 00:33 Constitutional: This is a well developed, well nourished patient who is awake, alert, tw4 and in no acute distress. Head/Face: Normocephalic, atraumatic. Chest/axilla: Normal chest wall appearance and motion. Nontender with no deformity. No lesions are appreciated. Cardiovascular: Regular rate and rhythm with a normal S1 and S2. No gallops, murmurs, or rubs. Normal PMI, no JVD. No pulse deficits. Respiratory: Lungs have equal breath sounds bilaterally, clear to auscultation and percussion. No rales, rhonchi or wheezes noted. No increased work of breathing, no retractions or nasal flaring. Abdomen/GI: Soft, non-tender, with normal bowel sounds. No distension or tympany. No guarding or rebound. No evidence of tenderness throughout. Back: No spinal tenderness. No costovertebral tenderness. Full range of motion. MS/ Extremity: Pulses equal, no cyanosis. Neurovascular intact. Full, normal range of motion. Neuro: Awake and alert, GCS 15, oriented to person, place, time, and situation. Cranial nerves II-XII grossly intact. Motor strength 5/5 in all extremities. Sensory grossly intact. Cerebellar exam normal. Normal gait. Vital Signs: 09/11 21:30 BP 135 / 93; Pulse 106; Resp 18; Temp 97.0; Pulse Ox 97% on R/A; Weight 97.52 kg; aa1 Height 5 ft. 7 in. (170.18 cm); Pain 9/10; 09/12 00:01 BP 142 / 99; Pulse 92; Resp 16; Pulse Ox 96% on R/A; mt 01:15 BP 137 / 93; Pulse 92; Resp 18; Pulse Ox 96% ; ea 09/11 21:30 Body Mass Index 33.67 (97.52 kg, 170.18 cm) aa1 MDM: 09/11 22:10 Patient medically screened. tw4 09/12 00:33 Differential diagnosis: Nonspecific abd pain, gastritis, cholecystitis, pancreatitis. tw4 Data reviewed: vital signs, nurses notes. Data interpreted: Pulse oximetry: Interpretation: normal. Counseling: I had a detailed discussion with the patient and/or guardian regarding: the historical points, exam findings, and any diagnostic results supporting the discharge/admit diagnosis. Medication response: Zofran relieved the patient's nausea. Response to treatment: and as a result, I will discharge patient. Special discussion: Based on the patient's Hx, exam, and Dx evaluation, there is no indication for emergent surgery or inpatient Tx. It is understood by the patient/guardian that if the Sx's persist or worsen they need to return immediately for re-evaluation. I discussed with the patient/guardian in detail that at this point there is no indication for admission to the hospital. It is understood, however, that if the symptoms persist or worsen the patient needs to return immediately for re-evaluation. 09/11 22:10 Order name: Basic Metabolic Panel; Complete Time: 23:08 tw4 09/12 01:15 Interpretation: Normal except: CL 108; GFR 85; GLUC 159. tw4 09/11 22:10 Order name: CBC with Diff; Complete Time: 23:08 tw4 09/11 23:09 Interpretation: Normal except: MPV 7.2; LYM% 9.0; JED% 85.1; NEUT A 9.3. tw4 09/11 22:10 Order name: Creatinine for Radiology; Complete Time: :15 tw4 09/11 22:10 Order name: Hepatic Function; Complete Time: 23:08 tw4 09/11 23:09 Interpretation: Normal except: AST 46; ALT 84; ALK 142; BILID 0.3; TP 8.5; GLOB 4.8; tw4 A/G 0.8. 09/11 22:10 Order name: Lipase; Complete Time: 23:08 tw4 09/11 23:09 Interpretation: Normal except: LIP 60. tw4 09/11 22:45 Order name: Manual Differential; Complete Time: 23:08 EDMS 09/11 23:09 Interpretation: Normal except: SEGS 82; BANDS [F] 3; LYM 7. tw4 09/11 22:10 Order name: IV Saline Lock; Complete Time: 22:30 tw4 09/11 22:10 Order name: Labs collected and sent; Complete Time: 22:30 tw4 09/11 23:08 Order name: CT Abd/Pelvis - IV Contrast Only tw4 Administered Medications: 09/11 22:35 Drug: NS 0.9% 1000 ml Route: IV; Rate: 1 bolus; Site: left antecubital; ea 09/12 01:26 Follow up: Response: No adverse reaction; IV Status: Completed infusion; IV Intake: ea 1000ml 09/11 22:35 Drug: Zofran 4 mg Route: IVP; Site: left antecubital; ea 09/12 01:06 Follow up: Response: No adverse reaction; Marked relief of symptoms ea Disposition: 09/12/19 01:13 Discharged to Home. Impression: Other viral enteritis. - Condition is Stable. - Discharge Instructions: Viral Gastroenteritis, Child. - Prescriptions for Zofran 4 mg Oral Tablet - take 1 tablet by ORAL route every 12 hours As needed; 6 tablet. Lomotil 2.5- 0.025 mg Oral Tablet - take 1 tablet by ORAL route every 6 hours As needed; 20 tablet. - Medication Reconciliation Form, Thank You Letter, Antibiotic Education, Prescription Opioid Use form. - Follow up: Private Physician; When: Upon discharge from the Emergency Department; Reason: Recheck today's complaints, Continuance of care. - Problem is new. - Symptoms have improved. Signatures: Dispatcher [employer] EDKimi Mcnally RN RN aaHaleigh Bennett RN RN ea Wadley, Terrence, MD MD tw4 Corrections: (The following items were deleted from the chart) 01:15 09/11 23:08 Normal except: CL 108; GFR 85. tw4 tw4 09/12 01:26 01:13 09/12/2019 01:13 Discharged to Home. Impression: Other viral enteritis. Condition ea is Stable. Forms are Medication Reconciliation Form, Thank You Letter, Antibiotic Education, Prescription Opioid Use. Follow up: Private Physician; When: Upon discharge from the Emergency Department; Reason: Recheck today's complaints, Continuance of care. Problem is new. Symptoms have improved. tw4
--- NOTE | 2019-09-12 01:14 | ER ---
Nurse's Notes [facility] Name: Dwayne Walker Jr Age: 49 yrs Sex: Male : 1970 Arrival Date: 09/11/2019 Time: 21:25 Bed 7 Private MD: Diagnosis: Other viral enteritis Presentation: 09/11 21:28 Presenting complaint: Patient states: vomiting \T\ diarrhea x 4.5 hrs. Transition of aa1 care: patient was not received from another setting of care. Onset of symptoms was September 11, 2019 at 17:00. Risk Assessment: Do you want to hurt yourself or someone else? Patient reports no desire to harm self or others. Initial Sepsis Screen: Does the patient meet any 2 criteria? HR > 90 bpm. Does the patient have a suspected source of infection? No. Patient's initial sepsis screen is negative. Care prior to arrival: None. 21:28 Method Of Arrival: Ambulatory aa1 21:28 Acuity: FÉLIX 3 aa1 Triage Assessment: 21:30 General: Appears in no apparent distress. comfortable, Behavior is calm, cooperative, aa1 appropriate for age. Historical: - Allergies: 21:30 No Known Allergies; aa1 - Home Meds: 21:30 Eliquis 5 mg Oral tab 1 tab 2 times per day [Active]; gabapentin 800 mg Oral tab 1 tab aa1 3 times per day [Active]; lisinopril 20 mg Oral tab 1 tab once daily [Active]; hydrocodone-acetaminophen Oral [Active]; - PMHx: 21:30 Anxiety; Chronic pain; DVT; GERD; High Cholesterol; Hypertension; Pulmonary Embolism; aa1 - PSHx: 21:30 Hip surg bilateral; Leg surg L; aa1 - Immunization history:: Flu vaccine is up to date. - Social history:: Smoking status: Patient reports the use of cigarette tobacco products, denies chronic smoking, but will smoke occasionally. - Ebola Screening: : Patient denies exposure to infectious person Patient denies travel to an Ebola-affected area in the 21 days before illness onset. Screenin/22 00:00 Abuse screen: Denies threats or abuse. Nutritional screening: No deficits noted. ea Tuberculosis screening: No symptoms or risk factors identified. Fall Risk None identified. Assessment: 09/11 22:50 General: Appears uncomfortable, Behavior is appropriate for age. Pain: Denies pain. ea Neuro: Level of Consciousness is awake, alert, obeys commands, Oriented to person, place, time, situation. Cardiovascular: Patient's skin is warm and dry. Respiratory: Airway is patent Respiratory effort is even, unlabored, Respiratory pattern is regular, symmetrical. GI: Abdomen is non-distended. Derm: Skin is pink, warm \T\ dry. 09/12 00:55 Reassessment: Patient and/or family updated on plan of care and expected duration. Pain ea level reassessed. Patient is alert, oriented x 3, equal unlabored respirations, skin warm/dry/pink. 01:06 Reassessment: Patient and/or family updated on plan of care and expected duration. Pain ea level reassessed. Patient is alert, oriented x 3, equal unlabored respirations, skin warm/dry/pink. Patient states feeling better. 01:23 Reassessment: Patient and/or family updated on plan of care and expected duration. Pain ea level reassessed. Patient is alert, oriented x 3, equal unlabored respirations, skin warm/dry/pink. Discharge instruction given to patient, verbalized the understanding of instruction. Patient states feeling better. Vital Signs: 09/11 21:30 BP 135 / 93; Pulse 106; Resp 18; Temp 97.0; Pulse Ox 97% on R/A; Weight 97.52 kg; aa1 Height 5 ft. 7 in. (170.18 cm); Pain 9/10; 09/12 00:01 BP 142 / 99; Pulse 92; Resp 16; Pulse Ox 96% on R/A; mt 01:15 BP 137 / 93; Pulse 92; Resp 18; Pulse Ox 96% ; ea 09/11 21:30 Body Mass Index 33.67 (97.52 kg, 170.18 cm) aa1 ED Course: 09/11 21:25 Patient arrived in ED. cf2 21:29 Triage completed. aa1 21:30 Arm band placed on left wrist. Patient placed in waiting room. aa1 22:10 Erik Pérez MD is Attending Physician. tw4 22:24 Haleigh Cates RN is Primary Nurse. ea 22:30 Inserted saline lock: 20 gauge in right antecubital area, using aseptic technique. mt Blood collected. 09/12 00:00 Patient has correct armband on for positive identification. Bed in low position. Call ea light in reach. 00:06 CT Abd/Pelvis - IV Contrast Only In Process Unspecified. EDMS 01:24 No provider procedures requiring assistance completed. IV discontinued, intact, ea bleeding controlled, No redness/swelling at site. Pressure dressing applied. Administered Medications: 09/11 22:35 Drug: NS 0.9% 1000 ml Route: IV; Rate: 1 bolus; Site: left antecubital; ea 09/12 01:26 Follow up: Response: No adverse reaction; IV Status: Completed infusion; IV Intake: ea 1000ml 09/11 22:35 Drug: Zofran 4 mg Route: IVP; Site: left antecubital; ea 09/12 01:06 Follow up: Response: No adverse reaction; Marked relief of symptoms ea Intake: :26 IV: 1000ml; Total: 1000ml. ea Outcome: 01:13 Discharge ordered by . tw4 01:24 Discharged to home ambulatory, with family. ea 01:24 Condition: stable 01:24 Discharge instructions given to patient, Instructed on discharge instructions, follow up and referral plans. medication usage, Demonstrated understanding of instructions, follow-up care, medications, Prescriptions given X 2. 01:26 Patient left the ED. ea Signatures: Dispatcher [employer] EDMS Kimi Blandon, RN Michelle Hernandez mt, Elena RN Erik Mack ea, MD MD tw4 Kera Moseley cf2
--- NOTE | 2019-09-12 10:12 | RAD REPORT ---
EXAM DESCRIPTION: CT - Abdomen Pelvis W Contrast - 09/12/2019 12:04 am CLINICAL HISTORY: 49-year-old male with abdominal pain TECHNIQUE: Axial CT imaging of the abdomen and pelvis was performed following the administration of intravenous contrast.. Sagittal and coronal reconstructed images were then performed. The CT stud y is performed according to ALARA (as low as reasonably achievable) or ALARA/IMAGE GENTLY, with autom atic adjustment of mA and/or kV according to patient size. Performed on: 09/11/2019 at 11:34 PM. COMPARISON: None FINDINGS: Lung bases: The lung bases are clear. There is minimal bibasilar atelectasis and/or fibros is. Liver: The liver is normal in size and configuration. No focal hepatic abnormalities are identified. There is decreased attenuation of the liver commonly due to fatty infiltration. Spleen: The spleen is normal is size, configuration and attenuation. Gallbladder and bile duct: The gallbladder is well distended and unremarkable. There is no biliary ductal dilatation. Pancreas: The pancreas is grossly normal in size and configuration. Adrenal Glands: The adrenal glands are normal in size and configuration. Kidneys: The kidneys are normal in size and configuration. There is no evidence of hydronephrosis. Th ere is no evidence of nephrolithiasis. No definite solid or cystic renal mass lesions are identified. Stomach: The stomach is grossly normal. There is no definite hiatal hernia. Bowel: The bowel gas pattern is non specific and non obstructive. There is scattered colonic divertic ulosis. There are a few mildly distended but nondilated fluid-filled proximal small bowel bowel loops . Appendix: The appendix is normal. Free air: There is no evidence of free air. Free fluid: There is no evidence of free fluid. Vasculature: The aorta is normal in caliber and contour. The inferior vena cava is grossly unremarkab le. Lymphadenopathy: No pathologic lymphadenopathy is identified. Bladder: The bladder is well distended and smooth in contour. Reproductive: The prostate gland is grossly within normal limits. Bones: No acute osseous abnormalities are identified. There are remote postsurgical changes of the sa croiliac joints. Soft tissues: There is a small fat-containing ventral umbilical hernia IMPRESSION: 1. No evidence of acute intra-abdominal or intrapelvic pathology. 2. Decreased attenuation of the liver commonly due to fatty infiltration. 3. Scattered colonic diverticulosis. 4. Small fat-containing ventral umbilical hernia. 5. There are a few mildly distended but nondilated fluid-filled proximal small bowel loops. 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 The interpreting radiologist is f ully responsible for the content of the report.
[2019-09-12 16:33] VITALS: TEMP 97
[2019-09-12 16:35] VITALS: O2SAT 96
[2019-09-12 16:36] VITALS: BP 137/93
== END 2019-09-12 01:26 | disposition home or self-care (01) ==
LOC: ER 21:22
DX: A08.39 Other viral enteritis (principal); I10 Essential (primary) hypertension; E78.00 Pure hypercholesterolemia, unspecified; F41.9 Anxiety disorder, unspecified; Z72.0 Tobacco use; Z79.01 Long term (current) use of anticoagulants
CPT/HCPCS: 96361; 85025; 80048; 36415; 80076; 83690; 74177; 96374; 99284; Q9967; J7030; J2405

== ENCOUNTER 2020-01-10 16:55 | Emergency (ER) | payer OTHER ==
--- OUTSIDE RECORDS SUMMARY | 2020-01-10 17:08 | XMS REPORT ---
:1970 Author Organization [facility] t Address [address] [place] [address] Dr. Allred [address] [place] [address] Care Team Providers Name Role Phone Unavailable Unavailable Unavailable Problems Condition Condition Condition Status Onset Resolution Last Treating Co mments Source Name Details Category Date Date Treatment Clinician Date Depression Depression Problem Active [facility] with [facility] - anxiety anxiety [facility] HTN, goal HTN, goal Problem Active [facility] below [facility] - 140/90 140/90 [facility] Mixed Mixed Problem Active [facility] hyperlipid hyperlipid [facility]io k[facility] - [facility] History of History of Problem Active [facility] pulmonary pulmonary Luke s - embolism embolism Memori a l [facility]ics Peripheral Peripheral Problem Active [facility] polyneurop polyneurop Rocio kes - athy athy Memoria l [facility] Other Other Problem Active [facility] chronic chronic [facility] - pain pain [facility] GERD GERD Problem Active [facility] without without [facility] - esophagiti esophagiti Me moria s s l [facility] Clinics Allergies, Adverse Reactions, Alerts This patient has no known allergies or adverse reactions. Medications Ordered Filled Start Stop Current Ordering Indication Dosage Frequency Signature Comments Components Source Medication Medication Date Date Medication? Clinician (SIG) Name Name Gabapentin Gabapentin Yes Orion [address] [facility] Atorvastati Atorvastati Yes Orion [address] [facility] n Calcium n Calcium Jimenez Luke s - Memoria l [facility] Omeprazole Omeprazole Yes Orion [address] [facility] Jimenez 30 minutes [facility] - before Memoria morning l meal [facility]ics [place] Del[place]on Yes Orion [address] [facility] Jmienez as needed [facility] - [facility] l [facility] Eliquis Eliquis Yes Orion [address] [facility] Lisinopril Lisinopril Yes Orion [address] [facility] Omeprazole Omeprazole Yes Orion TAKE [address] [facility]enez CAPSULE BY [facility] MOUTH [facility] Cyclobenzap Cyclobenzap Yes Orion [address] [facility] rine HCl rine HCl Jimenez as needed L [facility] l Outpati ent Clinics Procedures This patient has no known procedures. Encounters Start End Encounter Admission Attending Care Care Encounter Source Date/Time Date/Time Type Type Clinicians Facility Department ID 2019-10-16 2019-10-16 [facility] [id number] [facility] [address] 08:56:00 08:56:00 t [facility] Medicine Outpati ent Clinics 2019-10-12 2019-10-12 [facility] [id number] [address] 09:41:00 09:41:00 NCR [employer] [facility] Medicine Outpati ent Clinics 2019-09-26 2019-09-26 [facility] [id number] [facility] [address] 09:14:00 09:14:00 t [facility] Medicine Outpati ent Clinics 2019-09-11 2019-09-11 [facility] [id number] [facility] [address] 16:41:00 16:41:00 t [facility] Medicine Outpati ent Clinics 2019-09-11 2019-09-11 [facility] [id number] [facility] [address] 14:45:00 14:45:00 t [facility] Medicine Outpati ent Clinics Results This patient has no known results.
--- OUTSIDE RECORDS SUMMARY | 2020-01-10 17:08 | XMS REPORT ---
:1970 Author Organization [employer] Care Team Providers Name Role Phone Tony [facility] Provider Role Unavailable Allergies No Known Allergies Problems Problem Type Condition Code Onset Dates Condition Statu s Assessment Preoperative clearance Z01.818 Activ e Problem Depression with anxiety F41.8 Acti ve Problem Mixed hyperlipidemia E78.2 Active Problem History of pulmonary embolism Z86.711 Active Problem HTN, goal below 140/90 I10 Activ e Problem Peripheral polyneuropathy G62.9 Ac tive Problem Other chronic pain G89.29 Active Problem GERD without esophagitis K21.9 Act mehreen Medications No Known Medications Results No Known Results Summary Purpose [employer] Submission
--- OUTSIDE RECORDS SUMMARY | 2020-01-10 17:08 | XMS REPORT ---
:1970 Author Organization [employer] Care Team Providers Name Role Phone Tony [facility] Provider Role Unavailable Allergies No Known Allergies Problems Problem Type Condition Code Onset Dates Condition Statu s Problem Depression with anxiety F41.8 Acti ve [...]
[2020-01-10] MEDS ORDERED: HYDRALAZINE HCL 20 MG/ML VIAL ONE (17:36)
[2020-01-10] MEDS ORDERED: ONDANSETRON 4 MG/2 ML VIAL ONE (17:36)
[2020-01-10 17:55] LABS: Absolute Lymphocytes (CBC) 1.5 K/uL (0.7-4.9); Basophils % 0.4 % (0-1.3); Hematocrit 45.8 % (39.6-49.0); Lymphocytes % 17.8 % (15.3-44.8); MPV 7.8 fL (7.6-11.3); RBC Red Blood Cell Count 4.67 M/uL (4.33-5.43)
[2020-01-10 18:05] LABS: Protime INR 1.01
[2020-01-10 18:22] LABS: ALT/SGPT 91 U/L (12-78); AST/SGOT 66 U/L (15-37); Albumin 3.3 g/dL (3.4-5.0); Alkaline Phosphatase 133 U/L (45-117); BUN Blood Urea Nitrogen 8 mg/dL (7-18); Bicarbonate 25 mmol/L (21-32); Bilirubin Direct 0.2 mg/dL (0-0.2); Bilirubin Total 0.4 mg/dL (0.2-1.0); Glucose Level 116 mg/dL (74-106); Magnesium 2.2 mg/dL (1.8-2.4); NT PRO-BNP 15 pg/mL (<125); Potassium 4.2 mmol/L (3.5-5.1); Protein, Total 8.4 g/dL (6.4-8.2); Sodium Level 140 mmol/L (136-145); Troponin (Emerg Dept Use Only) < 0.02 ng/mL (0.0-0.045)
--- NOTE | 2020-01-10 18:22 | RAD REPORT ---
EXAM DESCRIPTION: Ashley Single View01/10/2020 6:00 pm CLINICAL HISTORY: sob COMPARISON: 2019 FINDINGS: The lungs appear clear of acute infiltrate. The heart is mildly enlarged IMPRESSION: No acute abnormalities displayed
--- NOTE | 2020-01-10 19:01 | ER ---
Nurse's Notes [facility] Name: Dwayne Walker Jr Age: 49 yrs Sex: Male : 1970 Arrival Date: 01/10/2020 Time: 17:02 Bed 19 Private MD: Diagnosis: Hypertensive Urgency Presentation: 01/09 16:53 Chief complaint: Patient states: high blood pressure, headache, pressure behind eyes ah and some blurred vision that started today. EMs vitals 170/95, 98.3, BG 105. Coronavirus screen: Proceed with normal triage. Patient denies a cough. Patient denies shortness of breath or difficulty breathing. Patient denies measured and/or subjective temperature greater than 100.4F prior to today's visit. Patient denies travel on a cruise ship or to a country the [facility] currently lists as an affected area. Patient denies contact with known and/or suspected case of COVID-19. Ebola Screen: No symptoms or risks identified at this time. Initial Sepsis Screen: Does the patient meet any 2 criteria? No. Patient's initial sepsis screen is negative. Does the patient have a suspected source of infection? No. Patient's initial sepsis screen is negative. Risk Assessment: Do you want to hurt yourself or someone else? Patient reports no desire to harm self or others. Onset of symptoms was January 10, 2020. 16:53 [facility] 16:53 Acuity: FÉLIX 3 ah Historical: - Allergies: 17:15 No Known Allergies; - Home Meds: 17:15 Eliquis 5 mg Oral tab 1 tab 2 times per day [Active]; Hydrocodone-Acetaminophen Oral [Active]; lisinopril 20 mg Oral tab 1 tab once daily [Active]; Eliquis oral oral [Active]; atorvastatin oral oral [Active]; Omeprazole Oral [Active]; gabapentin 800 mg Oral tab 1 tab 3 times per day [Active]; - PMHx: 17:15 Anxiety; Chronic pain; DVT; GERD; High Cholesterol; Hypertension; Pulmonary Embolism; - PSHx: 17:15 Hip surg bilateral; Leg surg L; - Immunization history:: Adult Immunizations up to date. - Social history:: Smoking status: Patient reports the use of cigarette tobacco products, denies chronic smoking, but will smoke occasionally, Patient uses alcohol, weekly. Screenin:00 Abuse screen: Denies threats or abuse. Nutritional screening: No deficits noted. Tuberculosis screening: No symptoms or risk factors identified. Fall Risk None identified. Assessment: 17:20 General: Appears in no apparent distress. Pain: Complains of pain in headache, pressure ah behind eyes. Neuro: Level of Consciousness is awake, alert, Oriented to person, place, time, situation. Cardiovascular: Heart tones S1 S2 present Capillary refill < 3 seconds Patient's skin is warm and dry. Respiratory: Airway is patent Respiratory effort is even, unlabored, Respiratory pattern is regular, symmetrical. GI: Bowel sounds present X 4 quads. : No signs and/or symptoms were reported regarding the genitourinary system. EENT: No signs and/or symptoms were reported regarding the EENT system. Derm: No signs and/or symptoms reported regarding the dermatologic system. Musculoskeletal: No signs and/or symptoms reported regarding the musculoskeletal system. 18:20 Reassessment: Patient and/or family updated on plan of care and expected duration. Pain ah level reassessed. awaiting results at this time. No needs met. Vital Signs: 16:53 BP 173 / 118; Pulse 86; Resp 23; Temp 98.1; Pulse Ox 96% ; Weight 95.25 kg; Height 5 ah ft. 7 in. (170.18 cm); 17:00 BP 183 / 116; Pulse 87; Resp 17; Pulse Ox 98% ; ah 17:30 BP 153 / 89; Pulse 83; Resp 19; Pulse Ox 95% ; ah 18:00 BP 153 / 98; Pulse 94; Resp 18; Pulse Ox 96% ; ah 18:30 BP 135 / 92; Pulse 92; Resp 20; Pulse Ox 96% ; ah 19:00 BP 128 / 78; Pulse 92; Resp 15; Pulse Ox 97% ; ah 16:53 Body Mass Index 32.89 (95.25 kg, 170.18 cm) ED Course: 17:02 Patient arrived in ED. 17:03 Stacey Santos, RN is Primary Nurse. 17:11 Triage completed. 17:14 Nash Jacinto PA is PHCP. jr8 17:14 Tank Boswell MD is Attending Physician. jr8 17:50 Inserted saline lock: 20 gauge in right antecubital area, using aseptic technique. dh4 18:02 XRAY Chest (1 view) In Process Unspecified. EDMS 19:00 Patient has correct armband on for positive identification. Bed in low position. Call light in reach. Side rails up X 1. 19:15 No provider procedures requiring assistance completed. IV discontinued, intact, bleeding controlled, No redness/swelling at site. Pressure dressing applied. Administered Medications: 17:50 Drug: hydrALAZINE 10 mg Route: IV; Rate: calculated rate; Site: right antecubital; 17:50 Drug: Zofran (Ondansetron) 4 mg Route: IVP; Site: right antecubital; 22:03 Follow up: Response: No adverse reaction Outcome: 19:01 Discharge ordered by MD. reyes 19:15 Discharged to home ambulatory. 19:15 Condition: good 19:15 Discharge instructions given to patient, Instructed on discharge instructions, follow up and referral plans. Demonstrated understanding of instructions, follow-up care. 19:33 Patient left the ED. sg Signatures: Dispatcher [employer] EDAR Sang Santana, RN RN Nash Espinoza PA PA [facility] Stacey Santos, RN CARLO Colten Gamez 4
--- NOTE | 2020-01-10 19:02 | EDPHYS ---
Physician Documentation [facility] Name: Dwayne Walker Jr Age: 49 yrs Sex: Male : 1970 Arrival Date: 01/10/2020 Time: 17:02 Bed 19 Private MD: ED Physician Tank Boswell HPI: 01/09 18:03 This 49 yrs old Male presents to ER via EMS with complaints of Hypertension. jr8 18:03 Patient stated that he blood pressure is elevated. Stated that he stated to have jr8 pressure behind eyes and mild headache with flushness. Had vomited once. Stated that he had several beers last night and does not know if that contributed to the BP elevation or not. Stated that he took his lisinopril a little while ago but without relief . Severity of symptoms: At their worst the symptoms were moderate in the emergency department the symptoms are unchanged. The patient has not experienced similar symptoms in the past. The patient has not recently seen a physician. Historical: - Allergies: 17:15 No Known Allergies; - Home Meds: 17:15 Eliquis 5 mg Oral tab 1 tab 2 times per day [Active]; Hydrocodone-Acetaminophen Oral ah [Active]; lisinopril 20 mg Oral tab 1 tab once daily [Active]; Eliquis oral oral [Active]; atorvastatin oral oral [Active]; Omeprazole Oral [Active]; gabapentin 800 mg Oral tab 1 tab 3 times per day [Active]; - PMHx: 17:15 Anxiety; Chronic pain; DVT; GERD; High Cholesterol; Hypertension; Pulmonary Embolism; - PSHx: 17:15 Hip surg bilateral; Leg surg L; - Immunization history:: Adult Immunizations up to date. - Social history:: Smoking status: Patient reports the use of cigarette tobacco products, denies chronic smoking, but will smoke occasionally, Patient uses alcohol, weekly. ROS: 18:03 Eyes: Negative for injury, pain, redness, and discharge, ENT: Negative for injury, jr8 pain, and discharge, Neck: Negative for injury, pain, and swelling, Cardiovascular: Negative for chest pain, palpitations, and edema, Respiratory: Negative for shortness of breath, cough, wheezing, and pleuritic chest pain, Back: Negative for injury and pain, MS/Extremity: Negative for injury and deformity, Skin: Negative for injury, rash, and discoloration. 18:03 Abdomen/GI: Positive for nausea and vomiting, Negative for abdominal pain, diarrhea, constipation, abdominal cramps, abdominal distension. 18:03 Neuro: Positive for headache. Exam: 18:03 Eyes: Pupils equal round and reactive to light, extra-ocular motions intact. Lids and jr8 lashes normal. Conjunctiva and sclera are non-icteric and not injected. Cornea within normal limits. Periorbital areas with no swelling, redness, or edema. ENT: Nares patent. No nasal discharge, no septal abnormalities noted. Tympanic membranes are normal and external auditory canals are clear. Oropharynx with no redness, swelling, or masses, exudates, or evidence of obstruction, uvula midline. Mucous membranes moist. Neck: Trachea midline, no thyromegaly or masses palpated, and no cervical lymphadenopathy. Supple, full range of motion without nuchal rigidity, or vertebral point tenderness. No Meningismus. Cardiovascular: Regular rate and rhythm with a normal S1 and S2. No gallops, murmurs, or rubs. Normal PMI, no JVD. No pulse deficits. Respiratory: Lungs have equal breath sounds bilaterally, clear to auscultation and percussion. No rales, rhonchi or wheezes noted. No increased work of breathing, no retractions or nasal flaring. Abdomen/GI: Soft, non-tender, with normal bowel sounds. No distension or tympany. No guarding or rebound. No evidence of tenderness throughout. Back: No spinal tenderness. No costovertebral tenderness. Full range of motion. Skin: Warm, dry with normal turgor. Normal color with no rashes, no lesions, and no evidence of cellulitis. MS/ Extremity: Pulses equal, no cyanosis. Neurovascular intact. Full, normal range of motion. Neuro: Awake and alert, GCS 15, oriented to person, place, time, and situation. Cranial nerves II-XII grossly intact. Motor strength 5/5 in all extremities. Sensory grossly intact. Cerebellar exam normal. Normal gait. 18:03 ECG was reviewed by the Attending Physician. Vital Signs: 16:53 BP 173 / 118; Pulse 86; Resp 23; Temp 98.1; Pulse Ox 96% ; Weight 95.25 kg; Height 5 ah ft. 7 in. (170.18 cm); 17:00 BP 183 / 116; Pulse 87; Resp 17; Pulse Ox 98% ; 17:30 BP 153 / 89; Pulse 83; Resp 19; Pulse Ox 95% ; 18:00 BP 153 / 98; Pulse 94; Resp 18; Pulse Ox 96% ; 18:30 BP 135 / 92; Pulse 92; Resp 20; Pulse Ox 96% ; 19:00 BP 128 / 78; Pulse 92; Resp 15; Pulse Ox 97% ; 16:53 Body Mass Index 32.89 (95.25 kg, 170.18 cm) MDM: 17:15 Patient medically screened. [facility] 19:00 Data reviewed: vital signs, nurses notes, lab test result(s), EKG, radiologic studies, jr8 plain films. Data interpreted: Pulse oximetry: on room air is 96 %. Interpretation: normal. Counseling: I had a detailed discussion with the patient and/or guardian regarding: the historical points, exam findings, and any diagnostic results supporting the discharge/admit diagnosis, lab results, radiology results, the need for outpatient follow up, a family practitioner, to return to the emergency department if symptoms worsen or persist or if there are any questions or concerns that arise at home. Response to treatment: the patient's symptoms have markedly improved after treatment. 01/09 17:15 Order name: Basic Metabolic Panel [facility] 01/09 17:15 Order name: CBC with Diff; Complete Time: 18:23 [facility] 01/09 17:15 Order name: LFT's; Complete Time: 18:23 [facility] 01/09 17:15 Order name: Magnesium; Complete Time: 18:23 [facility] 01/09 17:15 Order name: NT PRO-BNP; Complete Time: 18:23 [facility] 01/09 17:15 Order name: PT-INR; Complete Time: 18:10 [facility] 01/09 17:15 Order name: Troponin (emerg Dept Use Only); Complete Time: 18:23 [facility] 01/09 17:15 Order name: XRAY Chest (1 view); Complete Time: 19:00 [facility] 01/09 17:15 Order name: EKG; Complete Time: 17:16 [facility] 01/09 17:15 Order name: Cardiac monitoring; Complete Time: 18:00 [facility] 01/09 17:15 Order name: EKG - Nurse/Tech; Complete Time: 18:00 [facility] 01/09 17:16 Order name: Basic Metabolic Panel; Complete Time: 18:23 EDMS 01/09 17:15 Order name: IV Saline Lock; Complete Time: :59 jr8 01/09 17:15 Order name: Labs collected and sent; Complete Time: 59 jr8 01/09 17:15 Order name: O2 Per Protocol; Complete Time: :59 jr8 01/09 17:15 Order name: O2 Sat Monitoring; Complete Time: jr8 EC:03 Rate is 82 beats/min. Rhythm is regular, Normal Sinus Rhythm. QRS [place] is Normal. MD jr8 interval is normal at 150 msec. QRS interval is normal at 90 msec. QT interval is normal at 448 msec. No Q waves. T waves are Normal. No ST changes noted. Clinical impression: Normal ECG and No evidence of ischemia. Interpreted by me. Reviewed by me. Administered Medications: 17:50 Drug: hydrALAZINE 10 mg Route: IV; Rate: calculated rate; Site: right antecubital; 17:50 Drug: Zofran (Ondansetron) 4 mg Route: IVP; Site: right antecubital; 22:03 Follow up: Response: No adverse reaction Disposition: 01/10 12:32 Co-signature as Attending Physician, Tank Boswell MD I agree with the assessment and kdr plan of care. Disposition: 01/10/20 19:01 Discharged to Home. Impression: Hypertensive Urgency . - Condition is Stable. - Discharge Instructions: Hypertension. - Medication Reconciliation Form, Thank You Letter, Antibiotic Education, Prescription Opioid Use form. - Follow up: Private Physician; When: 5 - 6 days; Reason: Recheck today's complaints, Continuance of care, Re-evaluation by your physician. - Problem is new. - Symptoms have improved. Signatures: Dispatcher [employer] EDUT Sang Santana RN RN sg Rittger, Kevin, MD MD [facility] Nash Jacinto PA PA [facility] Stacey Santos RN RN Corrections: (The following items were deleted from the chart) 01/09 19:33 19:01 01/10/2020 19:01 Discharged to Home. Impression: Hypertensive Urgency . Condition sg is Stable. Forms are Medication Reconciliation Form, Thank You Letter, Antibiotic Education, Prescription Opioid Use. Follow up: Private Physician; When: 5 - 6 days; Reason: Recheck today's complaints, Continuance of care, Re-evaluation by your physician. Problem is new. Symptoms have improved. jr8
[2020-01-10 19:45] VITALS: BP 128/78; O2SAT 97
--- NOTE | 2020-01-11 06:24 | EKG ---
Test Date: 2020-01-10 Test Time: 17:21:59 Claim Manager: ALLISON MEASUREMENT RESULTS: Intervals: Rate: 82 OR: 150 QRSD: 90 QT: 384 QTc: 448 [place]: P: 34 OR: 150 QRS: -2 T: 46 INTERPRETIVE STATEMENTS: Normal sinus rhythm Normal ECG Compared to ECG 04/05/2019 22:50:59 Sinus tachycardia no longer present Electronically Signed On 01-11-20 06:23:59 CDT by Bony Soriano
== END 2020-01-10 19:33 | disposition home or self-care (01) ==
LOC: ER 16:55
DX: I16.0 Hypertensive urgency (principal); G89.29 Other chronic pain; K21.9 Gastro-esophageal reflux disease without esophagitis; I82.409 Acute embolism and thrombosis of unspecified deep veins of unspecified lower extremity; F17.210 Nicotine dependence, cigarettes, uncomplicated
CPT/HCPCS: 93005; 85025; 80048; 36415; 83735; 85610; 80076; 84484; 83880; 71045; 96375; 96374; 99284; J0360; J2405

== ENCOUNTER 2020-02-05 18:20 | Emergency (ER) | payer OTHER ==
--- OUTSIDE RECORDS SUMMARY | 2020-02-05 18:22 | XMS REPORT | Continuity of Care Document ---
:1970 Author Organization [facility] t Address [facility] [place] [address] Care Team Providers Name Role Phone Unavailable Unavailable Unavailable Problems Condition Condition Condition Status Onset Resolution Last Treating Co mments Source Name Details Category Date Date Treatment Clinician Date Depression Depression Problem Active [facility] with [facility] - anxiety anxiety [facility] HTN, goal HTN, goal Problem Active [facility] below below [facility] - 140/90 140/90 [facility] Clin[facility] Mixed Mixed Problem Active [facility] hyperlipid hyperlipid Rocio kes - emia em[facility] History of History of Problem Active [facility] pulmonary pulmonary Luke s - embolism embolism [facility] a l [facility] Clinics Peripheral Peripheral Problem Active [facility] polyneurop polyneurop Rocio kes - athy athy [facility] l [facility] Clinics Other Other Problem Active [facility] chronic chronic [facility] - pain pain [facility] Clinics GERD GERD Problem Active [...] [facility] Atorvastati Atorvastati Yes Orion [address] n Calcium n Calcium Jimenez Luke s - Memoria l [facility]ics Omeprazole Omeprazole Yes Orion [address] [facility] Jimenez 30 minutes [facility] - before [facility] morning [facility] [place] Yes Orion [address] [facility] Jimenez as needed [facility] - [facility]ics Eliquis Eliquis Yes Orion [address] [facility] Lisinopril Lisinopril Yes Orion [address] [facility] Outpat[facility] Clinics Omeprazole Omeprazole Yes Orion TAKE [address] [facility] Jimenez CAPSULE BY [facility] - MOUTH [facility] EVERY [facility] Out[facility] ent Clinics Cyclobenzap Cyclobenzap Yes Orion [address] [address] rine HCl rine HCl Jimenez as needed L [facility] l Outpati ent Clinics Procedures This patient has no known procedures. Encounters Start End Encounter Admission Attending Care Care Encounter Source Date/Time Date/Time Type Type Clinicians Facility Department ID 2019-10-16 2019-10-16 [facility] [id number] [facility] [address] 08:56:00 08:56:00 t DEQ [facility] Medicine Outpati ent Clinics 2019-10-12 2019-10-12 [facility] [id number] 09:41:00 09:41:00 [facility] Medicine Outpati ent Clinics 2019-09-26 2019-09-26 [facility] [id number] 09:14:00 09:14:00 t DEQ [facility] Medicine Outpati ent Clinics 2019-09-11 2019-09-11 [facility] [id number] [address] 16:41:00 16:41:00 t DEQ [facility] Medicine Outpati ent Clinics 2019-09-11 2019-09-11 [facility] [id number] 14:45:00 14:45:00 t DEQ [facility] Medicine Outpati ent Clinics Results This patient has no known results.
[2020-02-05 19:41] LABS: Absolute Lymphocytes (CBC) 1.4 K/uL (0.7-4.9); Basophils % 0.7 % (0-1.3); Hematocrit 46.9 % (39.6-49.0); MPV 7.4 fL (7.6-11.3); RBC Red Blood Cell Count 4.76 M/uL (4.33-5.43)
[2020-02-05 19:44] LABS: Protime INR 1.11
[2020-02-05] MEDS ORDERED: HYDROCODONE/APAP 10/325 TAB ONE (19:44)
[2020-02-05 19:51] LABS: Potassium 4.9 mmol/L (3.5-5.1)
--- NOTE | 2020-02-05 23:56 | EDPHYS ---
Physician Documentation [facility] Name: Dwayne Walker Jr Age: 49 yrs Sex: Male : 1970 Arrival Date: 02/05/2020 Time: 18:21 Bed 8 Private MD: Orion Jimenez ED Physician Carlos Escoto HPI: 02/04 19:45 This 49 yrs old Male presents to ER via Ambulatory with complaints of Leg rn Swelling. 19:45 The patient presents with pain, swelling. The complaints affect the left leg. Onset: rn The symptoms/episode began/occurred 2 week(s) ago. Modifying factors: The symptoms are alleviated by nothing. the symptoms are aggravated by nothing. Associated signs and symptoms: Pertinent positives: swelling, Pertinent negatives fever, rash, warmth, weakness. Severity of symptoms: At their worst the symptoms were mild, in the emergency department the symptoms are unchanged. The patient has experienced similar episodes in the past. Reports has known DVT and had PE 2 years ago, still takes eliquis, reports 2 weeks of left leg swelling and aching, no injury, similar when diagnosed with DVT in past. No respiratory symptoms this time. Seen 1-2 months ago for similar complaint, told ultrasound still showed DVT, but told not better or worse. . Historical: - Allergies: 18:32 No Known Drug Allergies; ll1 - PMHx: 18:32 Pulmonary Embolism; High Cholesterol; GERD; Chronic pain; Hypertension; Anxiety; DVT; ll1 - PSHx: 18:32 Hip surg bilateral; Leg surg L; ll1 - Immunization history:: Adult Immunizations unknown. - Social history:: Smoking status: Patient denies any tobacco usage or history of. Patient/guardian denies using alcohol, street drugs, tobacco products. - Family history:: not pertinent. - Hospitalizations: : No recent hospitalization is reported. ROS: 19:45 Constitutional: Negative for fever, chills, and weight loss, Eyes: Negative for injury, rn pain, redness, and discharge, Neck: Negative for injury, pain, and swelling, Cardiovascular: Negative for chest pain, palpitations Respiratory: Negative for shortness of breath, cough, wheezing, and pleuritic chest pain, Abdomen/GI: Negative for abdominal pain, nausea, vomiting, diarrhea, and constipation, MS/Extremity: + left leg swelling and pain Skin: Negative for injury, rash, and discoloration, Neuro: Negative for headache, weakness, numbness, tingling, and seizure. Exam: 19:45 Constitutional: This is a well developed, well nourished patient who is awake, alert, rn and in no acute distress. Head/Face: Normocephalic, atraumatic. Cardiovascular: Regular rate and rhythm. No pulse deficits. Respiratory: Speaking full sentences. No increased work of breathing, no retractions or nasal flaring. Abdomen/GI: soft, non-tender Skin: Warm, dry, No evidence of cellulitis. MS/ Extremity: Pulses equal, no cyanosis. Neurovascular intact. Full, normal range of motion. Mild edema about left ankle and foot but equal circumference upper tibial region. Neuro: Awake and alert, GCS 15 Vital Signs: 18:29 BP 156 / 96; Pulse 99; Resp 18; Temp 97.4; Pulse Ox 98% ; Pain 5/10; ll1 21:11 BP 138 / 85; Pulse 81; Resp 17 S; Pulse Ox 98% on R/A; jd3 21:48 BP 133 / 81; Pulse 73; Resp 17 S; Pulse Ox 99% on R/A; jd3 22:42 BP 159 / 99; Pulse 73; Resp 17 S; Pulse Ox 99% on R/A; jd3 23:34 BP 149 / 95; Pulse 77; Resp 17 S; Pulse Ox 97% on R/A; jd3 MDM: 18:56 Patient medically screened. rn 23:37 ED course: Per electronic security technician prelim report, no acute DVT, still awaiting final tw4 radiology read. . 23:54 Differential diagnosis: DVT, edema, lymphedema. Data reviewed: vital signs, nurses rn notes, lab test result(s), radiologic studies, and as a result, I will discharge patient. Counseling: I had a detailed discussion with the patient and/or guardian regarding: the historical points, exam findings, and any diagnostic results supporting the discharge/admit diagnosis, lab results, radiology results, the need for outpatient follow up, to return to the emergency department if symptoms worsen or persist or if there are any questions or concerns that arise at home. Special discussion: I discussed with the patient/guardian in detail that at this point there is no indication for admission to the hospital. It is understood, however, that if the symptoms persist or worsen the patient needs to return immediately for re-evaluation. ED course: U/S neg for acute dvt, will dc home as already on eliquis. . 02/04 19:09 Order name: CBC with Diff; Complete Time: 19:55 rn 02/04 19:09 Order name: Basic Metabolic Panel; Complete Time: 19:55 rn 02/04 19:09 Order name: Protime (+inr); Complete Time: 19:55 rn 02/04 19:09 Order name: Ptt, Activated; Complete Time: 19:55 rn 02/04 19:09 Order name: Extremity Venous Uni Ltd US rn 02/04 19:09 Order name: IV Start; Complete Time: 19:35 rn Administered Medications: 19:39 Drug: [place] 10 mg-325 mg 1 tabs Route: PO; jd3 20:30 Follow up: Response: No adverse reaction; RASS: Alert and Calm (0) jd3 Disposition: 02/05/20 23:55 Discharged to Home. Impression: Chronic embolism and thrombosis of other specified deep vein of left lower extremity. - Condition is Stable. - Discharge Instructions: Deep Vein Thrombosis. - Medication Reconciliation Form, Thank You Letter, Antibiotic Education, Prescription Opioid Use form. - Follow up: Private Physician; When: As needed; Reason: Recheck today's complaints, Re-evaluation by your physician. - Problem is chronic. - Symptoms are unchanged. Signatures: Dispatcher [employer] EDCarlos Nathan MD MD rn Davies, Jonathon, RN RN jd3 Erik Pérez MD MD tw4 Chandler Arita RN RN ll1 Corrections: (The following items were deleted from the chart) 02/05 00:12 02/04 23:55 02/05/2020 23:55 Discharged to Home. Impression: Chronic embolism and jd3 thrombosis of other specified deep vein of left lower extremity. Condition is Stable. Forms are Medication Reconciliation Form, Thank You Letter, Antibiotic Education, Prescription Opioid Use. Follow up: Private Physician; When: As needed; Reason: Recheck today's complaints, Re-evaluation by your physician. Problem is chronic. Symptoms are unchanged. rn
--- NOTE | 2020-02-05 23:56 | ER ---
Nurse's Notes [facility] Name: Dwayne Walker Jr Age: 49 yrs Sex: Male : 1970 Arrival Date: 02/05/2020 Time: 18:21 Bed 8 Private MD: Orion Jimenez Diagnosis: Chronic embolism and thrombosis of other specified deep vein of left lower extremity Presentation: 02/04 18:29 Chief complaint: Patient states: Left leg pain and swelling for 2 weeks. Currently ll1 being treated for DVT to left leg and PE to left lung. Coronavirus screen: Proceed with normal triage. Patient denies a cough. Patient denies shortness of breath or difficulty breathing. Patient denies measured and/or subjective temperature greater than 100.4F prior to today's visit. Patient denies travel on a cruise ship or to a country the [facility] currently lists as an affected area. Patient denies contact with known and/or suspected case of COVID-19. Ebola Screen: Patient denies travel to an Ebola-affected area in the 21 days before illness onset. Initial Sepsis Screen: Does the patient meet any 2 criteria? HR > 90 bpm. No. Patient's initial sepsis screen is negative. Risk Assessment: Do you want to hurt yourself or someone else? Patient reports no desire to harm self or others. Onset of symptoms was January 22, 2020. 18:29 Method Of Arrival: Ambulatory 1 18:29 Acuity: FÉLIX 3 ll1 19:39 Initial Sepsis Screen: Does the patient have a suspected source of infection? No. jd3 Patient's initial sepsis screen is negative. Historical: - Allergies: 18:32 No Known Drug Allergies; ll1 - PMHx: 18:32 Pulmonary Embolism; High Cholesterol; GERD; Chronic pain; Hypertension; Anxiety; DVT; ll1 - PSHx: 18:32 Hip surg bilateral; Leg surg L; ll1 - Immunization history:: Adult Immunizations unknown. - Social history:: Smoking status: Patient denies any tobacco usage or history of. Patient/guardian denies using alcohol, street drugs, tobacco products. - Family history:: not pertinent. - Hospitalizations: : No recent hospitalization is reported. Screenin:41 Abuse screen: Denies threats or abuse. Nutritional screening: No deficits noted. jd3 Tuberculosis screening: No symptoms or risk factors identified. Fall Risk IV access (20 points). Ambulatory Aid- None/Bed Rest/Nurse Assist (0 pts). Gait- Normal/Bed Rest/Wheelchair (0 pts) Mental Status- Oriented to own ability (0 pts). Total Sarkar Fall Scale indicates No Risk (0-24 pts). Assessment: 19:39 General: Appears in no apparent distress. uncomfortable, Behavior is calm, cooperative, jd3 appropriate for age. Pain: Complains of pain in back, left foot and left leg Quality of pain is described as shooting, tender. Neuro: Level of Consciousness is awake, alert, obeys commands, Oriented to person, place, time, situation. Cardiovascular: Denies chest pain, Capillary refill < 3 seconds Patient's skin is warm and dry. Respiratory: Airway is patent Respiratory effort is even, unlabored, Respiratory pattern is regular, symmetrical, Denies cough, shortness of breath. GI: Abdomen is round non-distended, Abd is soft and non tender X 4 quads. : No signs and/or symptoms were reported regarding the genitourinary system. EENT: No signs and/or symptoms were reported regarding the EENT system. Derm: Skin is intact, Skin is dry, Skin is normal, Skin temperature is warm. Musculoskeletal: Circulation, motion, and sensation intact. Range of motion: intact in all extremities, Swelling present in left foot. 20:39 Reassessment: Patient appears in no apparent distress at this time. Patient and/or jd3 family updated on plan of care and expected duration. Pain level reassessed. Patient is alert, oriented x 3, equal unlabored respirations, skin warm/dry/pink. Patient states feeling better. 21:11 Reassessment: Patient appears in no apparent distress at this time. Patient and/or jd3 family updated on plan of care and expected duration. Pain level reassessed. Patient is alert, oriented x 3, equal unlabored respirations, skin warm/dry/pink. 21:47 Reassessment: Patient appears in no apparent distress at this time. Patient and/or jd3 family updated on plan of care and expected duration. Pain level reassessed. Patient is alert, oriented x 3, equal unlabored respirations, skin warm/dry/pink. awaiting ultrasound. 22:42 Reassessment: Patient appears in no apparent distress at this time. Patient and/or jd3 family updated on plan of care and expected duration. Pain level reassessed. Patient is alert, oriented x 3, equal unlabored respirations, skin warm/dry/pink. refrigeration service technician finishing procedure. 23:34 Reassessment: Patient appears in no apparent distress at this time. Patient and/or jd3 family updated on plan of care and expected duration. Pain level reassessed. Patient is alert, oriented x 3, equal unlabored respirations, skin warm/dry/pink. awaiting results. Vital Signs: 18:29 BP 156 / 96; Pulse 99; Resp 18; Temp 97.4; Pulse Ox 98% ; Pain 5/10; ll1 21:11 BP 138 / 85; Pulse 81; Resp 17 S; Pulse Ox 98% on R/A; jd3 21:48 BP 133 / 81; Pulse 73; Resp 17 S; Pulse Ox 99% on R/A; jd3 22:42 BP 159 / 99; Pulse 73; Resp 17 S; Pulse Ox 99% on R/A; jd3 23:34 BP 149 / 95; Pulse 77; Resp 17 S; Pulse Ox 97% on R/A; jd3 ED Course: 18:21 Patient arrived in ED. as 18:22 Orion Jimenez DO is Private Physician. as 18:31 Triage completed. ll1 18:32 Arm band placed on Patient placed in an exam room, on a stretcher. ll1 18:56 Carlos Escoto MD is Attending Physician. rn 19:13 Mendez Keyes, CARLO is Primary Nurse. jd3 19:41 Patient has correct armband on for positive identification. Bed in low position. Call jd3 light in reach. Side rails up X 1. Pulse ox on. NIBP on. 23:07 Extremity Venous Uni Ltd US In Process Unspecified. EDMS 02/05 00:11 No provider procedures requiring assistance completed. IV discontinued, intact, jd3 bleeding controlled, No redness/swelling at site. Pressure dressing applied. Administered Medications: 02/04 19:39 Drug: [place] 10 mg-325 mg 1 tabs Route: PO; jd3 20:30 Follow up: Response: No adverse reaction; RASS: Alert and Calm (0) jd3 Outcome: 23:55 Discharge ordered by . rn 02/05 00:11 Discharged to home via wheelchair, with friend. jd3 Condition: stable Discharge instructions given to patient, Instructed on discharge instructions, follow up and referral plans. Demonstrated understanding of instructions, follow-up care. 00:12 Patient left the ED. jd3 Signatures: Dispatcher [employer] Melly Eaton Roman, MD MD rn Davies, Jonathon, RN RN jd3 Chandler Arita RN RN ll1
[2020-02-06 00:18] VITALS: TEMP 97.4
[2020-02-06 00:24] VITALS: BP 149/95; O2SAT 97
--- NOTE | 2020-02-06 20:10 | RAD REPORT ---
EXAM DESCRIPTION: US Duplex Left Lower Extremity Veins CLINICAL HISTORY: The patient is 49 years old and is Male; Known DVT, pain worse;Pain;Swelling TECHNIQUE: Real-time duplex ultrasound scan of the left lower extremity veins integrating B-mode two -dimensional vascular structure, Doppler spectral analysis, color flow Doppler imaging and compressio n. COMPARISON: No relevant prior studies available. FINDINGS: DEEP VEINS: Evidence of old thrombus seen within the proximal mid superficial femoral vein is noted. No acute DVT in the visualized common femoral, femoral, proximal deep femoral or popliteal veins. The veins demonstrate normal color flow, are normally compressible, with normal phasic flow and/or augmentation response. SUPERFICIAL VEINS: Unremarkable. No thrombus in the visualized great saphenous vein. SOFT TISSUES: No acute findings. No popliteal cyst. IMPRESSION: No acute DVT within the left lower extremity vessels. Electronically signed by: Rachel Acharya MD 02/05/2020 11:31 PM CDT Due to temporary technical issues with the PACS/Fluency reporting system, reports are being signed by the in house radiologist without review as a courtesy to ensure prompt reporting. The interpreting r adiologist is fully responsible for the content of the report.
== END 2020-02-06 00:12 | disposition home or self-care (01) ==
LOC: ER 18:20
DX: I82.592 Chronic embolism and thrombosis of other specified deep vein of left lower extremity (principal); I10 Essential (primary) hypertension; Z79.01 Long term (current) use of anticoagulants
CPT/HCPCS: 36415; 80048; 85025; 85610; 85730; 93971; 99284

== ENCOUNTER 2021-02-23 06:31 | Emergency (ER) | payer OTHER ==
--- OUTSIDE RECORDS SUMMARY | 2021-02-23 06:45 | XMS REPORT | Continuity of Care Document ---
:1970 Author Organization [facility] t Address [address] [place] [address] Care Team Providers Name Role Phone Unavailable Unavailable Unavailable Problems This patient has no known problems. Allergies, Adverse Reactions, Alerts This patient has no known allergies or adverse reactions. Medications Ordered Filled Start Stop Current Ordering Indication Dosage Frequency Signature Comments Components Source Medication Medication Date Date Medication? Clinician (SIG) Name Name HydrOXYzine HydrOXYzine Yes Orion [address] [facility] HCl HCl 8-04 Jimenez as needed [facility] Gabapentin Gabapentin Yes Orion [address] [facility] Atorvastati Atorvastati Yes Orion [address] [facility] n Calcium n Calcium Jimenez Luke s - [facility] Omeprazole Omeprazole Yes Orion [address] [facility] Jimenez 30 minutes [facility] - before [facility] morning l meal [facility] [place] Yes Orion [address] [facility] Jimenez as needed [facility] Eliquis Eliquis Yes Orion TAKE 1 [facility] TABLET BY [facility] - MOUTH [facility]oria EVERY DAY l [facility] Lisinopril Lisinopril Yes Orion [address] [facility] Cyclobenzap Cyclobenzap Yes Orion [address] [facility] rine HCl rine HCl Jimenez as needed L [facility]kes - [facility] Lisinopril Lisinopril Yes Orion TAKE [address] [facility] Jimenez TABLET BY [facility] - MOUTH ONCE Memoria DAILY l Outpati ent Clinics Procedures This patient has no known procedures. Encounters Start End Encounter Admission Attending Care Care Encounter Source Date/Time Date/Time Type Type Clinicians Facility Department ID 2020-12-25 2020-12-25 [facility] [id number] 2020-09-18 2020-09-18 [facility] [id number] [facility] 2020-09-15 2020-09-15 [facility] [id number] 2020-06-12 2020-06-12 [facility] [id number] [facility] 2020-06-02 2020-06-02 [facility] [id number] [facility] 2020-03-25 2020-03-25 [facility] [id number] [facility] 15[facility]00:00 15:00:00 t [facility] - [employer] [facility] l Medicine Outpati ent Clinics 2020-03-18 2020-03-18 [facility] [id number] [address] 16:51:00 16:51:00 t LIFE INTER[facility] s - [employer] [facility] Medicine l Medicine Outpati ent Clinics 2020-02-05 2020-02-05 [facility] [id number] [address] 16:26:00 16:26:00 t [facility]ACTION s - [employer] [facility] Medicine l Medicine Outpati ent Clinics 2019-12-11 2019-12-11 [facility] [id number] [address] 13:15:00 13:15:00 t [employer] [facility] l Medicine Outpati ent Clinics 2019-10-16 2019-10-16 [facility] [id number] [address] 08:56:00 08:56:00 t [employer] [facility] Medicine Outpati ent Clinics 2019-10-12 2019-10-12 [facility] [id number] 09:41:00 09:41:00 t [employer] [facility] Medicine Outpati ent Clinics 2019-09-26 2019-09-26 [facility] [id number] 09:14:00 09:14:00 t [employer] [facility] Outpati ent Clinics 2019-09-11 2019-09-11 [facility] [id number] 16:41:00 16:41:00 t [employer] [facility] Medicine Outpati ent Clinics 2019-09-11 2019-09-11 [facility] [id number] 14:45:00 14:45:00 t [employer] [facility] Outpati ent Clinics Results This patient has no known results.
[2021-02-23 07:08] LABS: Absolute Lymphocytes (CBC) 1.6 K/uL (0.7-4.9); Hematocrit 44.2 % (39.6-49.0); Lymphocytes % 27.6 % (15.3-44.8); MPV 7.5 fL (7.6-11.3); RBC Red Blood Cell Count 4.61 M/uL (4.33-5.43)
--- NOTE | 2021-02-23 07:08 | RAD REPORT ---
EXAM DESCRIPTION: RAD - Chest Single View - 02/23/2021 7:00 am CLINICAL HISTORY: CHEST PAIN COMPARISON: Portable December 28, 2019 TECHNIQUE: AP portable chest image was obtained 02/23/2021 7:00 am . FINDINGS: Lungs are clear. Interstitial pattern matches comparison. Heart and vasculature are normal . No measurable pleural effusion and no pneumothorax. No acute bony abnormality seen. No acute aortic findings suspected. IMPRESSION: No acute cardiopulmonary process. No significant change from comparison study.
[2021-02-23 07:14] LABS: Protime INR 1.35
[2021-02-23] MEDS ORDERED: NA CHLORIDE 0.9% 1,000 ML ONE (07:20)
[2021-02-23] MEDS ORDERED: MORPHINE 2 MG/ML SYR ONE ×2 (07:20→09:43)
[2021-02-23] MEDS ORDERED: ONDANSETRON 4 MG/2 ML VIAL ONE (07:20)
[2021-02-23 07:28] LABS: ALT/SGPT 97 U/L (12-78); AST/SGOT 64 U/L (15-37); Albumin 3.6 g/dL (3.4-5.0); Alkaline Phosphatase 111 U/L (45-117); BUN Blood Urea Nitrogen 9 mg/dL (7-18); Bicarbonate 28 mmol/L (21-32); Bilirubin Direct 0.3 mg/dL (0-0.2); Bilirubin Total 0.8 mg/dL (0.2-1.0); Glucose Level 135 mg/dL (74-106); Lipase 39 U/L (73-393); Magnesium 1.9 mg/dL (1.8-2.4); NT PRO-BNP 21 pg/mL (<125); Protein, Total 8.1 g/dL (6.4-8.2); Sodium Level 139 mmol/L (136-145); Troponin (Emerg Dept Use Only) < 0.02 ng/mL (0.0-0.045)
--- NOTE | 2021-02-23 08:24 | RAD REPORT ---
EXAM DESCRIPTION: CT - Angio Aorta For Dissection - 02/23/2021 7:56 am CLINICAL HISTORY: Chest pain;Dyspnea COMPARISON: None. TECHNIQUE: Dynamically enhanced 3 mm thick images of the chest, abdomen, and upper pelvis were obtai holly during administration of approximately 150mL Isovue 370 IV contrast. Sagittal and coronal reconst ruction images were generated using MIP and reviewed. Exam utilizes a protocol to evaluate entire cou rse of the aorta. All CT scans are performed using dose optimization technique as appropriate and may include automated exposure control or mA/KV adjustment according to patient size. FINDINGS: Aorta is normal in diameter with no dissection or other acute aortic findings. Reconstruct ion images show no significant findings. Pulmonary arteries are normal as well. No cardiomegaly, pericardial thickening or pericardial effusio n. No mass or infiltrate in the lung parenchyma. No pleural thickening, pleural effusion or pneumothorax . No abnormal mediastinal or hilar mass or lymphadenopathy seen. No chest wall mass or abnormal axillar y lymphadenopathy. Celiac, SMA and renal arteries show no suspicious findings. Solid abdominal viscera and bowel show no significant findings. Liver shows fatty infiltration with no portal vein abnormality. No mass or ab normal lymphadenopathy. No free air, free fluid or inflammatory stranding. No urinary bladder abnorma lity. Small fat only periumbilical hernia present. No acute bone finding identified. Postsurgical changes are present fusion across the SI joints. Ankyl osing spondylitis changes are evident in the spine. IMPRESSION: Negative CT scan of the aorta. No other significant findings on chest, abdomen and upper pelvis examination.Nonacute findings detail ed in body of the report.
--- NOTE | 2021-02-23 08:25 | RAD REPORT ---
EXAM DESCRIPTION: US - Extrem Venous W Compress Gene - 02/23/2021 7:46 am CLINICAL HISTORY: Pain;Swelling COMPARISON: None. TECHNIQUE: Real-time sonographic evaluation of the bilateral lower extremity common femoral, superfi cial femoral, popliteal and posterior tibial veins was performed. FINDINGS: Normal compressibility, flow augmentation, phasic flow and spontaneous flow are identified in the right lower extremity common femoral, superficial femoral, popliteal and posterior tibial vei ns. No intraluminal filling defects seen. Left common femoral vein is clear. Echogenic old clot is present in left superficial femoral and popl iteal veins. IMPRESSION: No acute deep venous thrombosis in either lower extremity. Old thrombus is present in the left superficial femoral and popliteal deep veins.
--- NOTE | 2021-02-23 08:49 | EDPHYS ---
Physician Documentation [facility] Name: Dwayne Walker Jr Age: 50 yrs Sex: Male : 1970 Arrival Date: 02/23/2021 Time: 06:33 Bed 7 Private MD: ED Physician Chris Olea HPI: 02/23 06:41 This 50 yrs old Male presents to ER via EMS with complaints of Leg Pain. jose 06:41 The patient presents with decreased range of motion, pain, that is acute. The jose complaints affect the lateral aspect of left thigh, lateral aspect of left knee, lateral aspect of left calf, left hamstring, posterior aspect of left knee, left calf, medial aspect of left thigh, medial aspect of left knee, medial aspect of left calf, left quadriceps, left knee and left ardon. Context: The problem was sustained at home. Onset: The symptoms/episode began/occurred 1 week(s) ago. Modifying factors: The symptoms are alleviated by nothing. the symptoms are aggravated by nothing. Associated signs and symptoms: The patient has no apparent associated signs or symptoms. Treatment prior to arrival includes: no previous treatment. Historical: - Allergies: 06:41 No Known Allergies; lp1 - Home Meds: 06:41 atorvastatin Oral [Active]; Eliquis 5 mg Oral tab 1 tab 2 times per day [Active]; lp1 gabapentin 800 mg Oral tab 1 tab 3 times per day [Active]; lisinopril 20 mg Oral tab 1 tab once daily [Active]; Hydrocodone-Acetaminophen Oral [Active]; - PMHx: 06:41 Anxiety; Chronic pain; DVT; GERD; High Cholesterol; Hypertension; Pulmonary Embolism; lp1 - PSHx: 06:41 Leg surgery; lp1 - Immunization history:: Adult Immunizations up to date. - Social history:: Smoking status: Patient reports the use of cigarette tobacco products, Patient/guardian denies using tobacco, Stopped _ months ago 5. - Family history:: not pertinent. ROS: 06:41 Constitutional: Negative for fever, chills, and weight loss, Eyes: Negative for injury, jose pain, redness, and discharge, ENT: Negative for injury, pain, and discharge, Neck: Negative for injury, pain, and swelling, Respiratory: Negative for shortness of breath, cough, wheezing, and pleuritic chest pain, Abdomen/GI: Negative for abdominal pain, nausea, vomiting, diarrhea, and constipation, Back: Negative for injury and pain, : Negative for injury, bleeding, discharge, and swelling, Skin: Negative for injury, rash, and discoloration, Neuro: Negative for headache, weakness, numbness, tingling, and seizure, Psych: Negative for depression, anxiety, suicide ideation, homicidal ideation, and hallucinations, Allergy/Immunology: Negative for hives, rash, and allergies, Endocrine: Negative for neck swelling, polydipsia, polyuria, polyphagia, and marked weight changes, Hematologic/Lymphatic: Negative for swollen nodes, abnormal bleeding, and unusual bruising. 06:41 Cardiovascular: Positive for chest pain, with movement. 06:41 MS/extremity: Positive for decreased range of motion, pain, tenderness, of the left leg. Exam: 06:41 Constitutional: This is a well developed, well nourished patient who is awake, alert, jose and in no acute distress. Head/Face: Normocephalic, atraumatic. Eyes: Pupils equal round and reactive to light, extra-ocular motions intact. Lids and lashes normal. Conjunctiva and sclera are non-icteric and not injected. Cornea within normal limits. Periorbital areas with no swelling, redness, or edema. ENT: Nares patent. No nasal discharge, no septal abnormalities noted. Tympanic membranes are normal and external auditory canals are clear. Oropharynx with no redness, swelling, or masses, exudates, or evidence of obstruction, uvula midline. Mucous membranes moist. Neck: Trachea midline, no thyromegaly or masses palpated, and no cervical lymphadenopathy. Supple, full range of motion without nuchal rigidity, or vertebral point tenderness. No Meningismus. Chest/axilla: Normal chest wall appearance and motion. Nontender with no deformity. No lesions are appreciated. Cardiovascular: Regular rate and rhythm with a normal S1 and S2. No gallops, murmurs, or rubs. Normal PMI, no JVD. No pulse deficits. Respiratory: Lungs have equal breath sounds bilaterally, clear to auscultation and percussion. No rales, rhonchi or wheezes noted. No increased work of breathing, no retractions or nasal flaring. Abdomen/GI: Soft, non-tender, with normal bowel sounds. No distension or tympany. No guarding or rebound. No evidence of tenderness throughout. Back: No spinal tenderness. No costovertebral tenderness. Full range of motion. Male : Normal genitalia with no discharge or lesions. Skin: Warm, dry with normal turgor. Normal color with no rashes, no lesions, and no evidence of cellulitis. MS/ Extremity: Pulses equal, no cyanosis. Neurovascular intact. Full, normal range of motion. Neuro: Awake and alert, GCS 15, oriented to person, place, time, and situation. Cranial nerves II-XII grossly intact. Motor strength 5/5 in all extremities. Sensory grossly intact. Cerebellar exam normal. Normal gait. Psych: Awake, alert, with orientation to person, place and time. Behavior, mood, and affect are within normal limits. 07:14 ECG was reviewed by the Attending Physician. [facility] Vital Signs: 06:38 BP 156 / 90; Pulse 85; Resp 18; Temp 98.2(TE); Pulse Ox 98% on R/A; Weight 90.72 kg lp1 (R); Height 5 ft. 7 in. (170.18 cm); Pain 8/10; 07:36 BP 125 / 73; Pulse 67; Resp 18; Pulse Ox 94% on R/A; ph 09:13 BP 128 / 76; Pulse 72; Resp 18; Temp 97.8; Pulse Ox 97% on R/A; ph 06:38 Body Mass Index 31.32 (90.72 kg, 170.18 cm) lp1 MDM: 06:35 Patient medically screened. [facility] 06:44 Differential diagnosis: contusion, tendonitis. Data reviewed: vital signs, nurses [facility] notes, lab test result(s), EKG, radiologic studies, CT scan, plain films. 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 Test interpretation: by ED physician or midlevel provider: ECG, plain radiologic studies. Counseling: I had a detailed discussion with the patient and/or guardian regarding: the historical points, exam findings, and any diagnostic results supporting the discharge/admit diagnosis, lab results, radiology results. 02/23 06:40 Order name: Basic Metabolic Panel [facility] 02/23 06:40 Order name: CBC with Diff; Complete Time: 07:36 [facility] 02/23 06:40 Order name: LFT's; Complete Time: 07:36 jose 02/23 06:40 Order name: Magnesium; Complete Time: 07:36 jose 02/23 06:40 Order name: NT PRO-BNP; Complete Time: 07:36 jose 02/23 06:40 Order name: PT-INR; Complete Time: 07:36 jose 02/23 06:40 Order name: Troponin (emerg Dept Use Only); Complete Time: 07:36 jose 02/23 06:40 Order name: XRAY Chest (1 view); Complete Time: 07:36 jose 02/23 06:40 Order name: Lipase; Complete Time: 07:36 jose 02/23 06:40 Order name: US Extremity Venous W Compression Gene; Complete Time: 08:48 jose 02/23 06:41 Order name: Basic Metabolic Panel; Complete Time: 07:36 EDMS 07 06:44 Order name: CT Aorta for Dissection: ro dissection, PE; Complete Time: 08:48 jose 02/23 06:40 Order name: EKG; Complete Time: 06:41 jose 02/23 06:40 Order name: Cardiac monitoring; Complete Time: 07:04 jose 02/23 06:40 Order name: EKG - Nurse/Tech; Complete Time: 07:04 jose 02/23 06:40 Order name: IV Saline Lock; Complete Time: 06:51 jose 02/23 06:40 Order name: Labs collected and sent; Complete Time: 06:51 jose 02/23 06:40 Order name: O2 Per Protocol; Complete Time: 06:51 jose 02/23 06:40 Order name: O2 Sat Monitoring; Complete Time: 06:51 [facility] EC:14 Rate is 82 beats/min. Rhythm is regular. QRS [place] is Normal. AL interval is normal. QRS jose interval is normal. QT interval is normal. No Q waves. T waves are Normal. No ST changes noted. Clinical impression: NSR w/ Non-specific ST/T Changes and No evidence of ischemia. Interpreted by me. Reviewed by me. Administered Medications: 07:00 Drug: Zofran (Ondansetron) 4 mg Route: IVP; Site: right antecubital; ph 08:17 Follow up: Response: No adverse reaction ph 07:09 Drug: morphine 2 mg Route: IVP; Site: right antecubital; ph 08:17 Follow up: Response: No adverse reaction; RASS: Alert and Calm (0) ph 07:10 Drug: NS 0.9% 1000 ml Route: IV; Rate: 1 bolus; Site: right antecubital; ph 09:57 Follow up: Response: No adverse reaction; IV Status: Completed infusion; IV Intake: ph 1000ml 09:35 Drug: morphine 2 mg Route: IVP; Site: right antecubital; ph 09:58 Follow up: Response: No adverse reaction; Pain is decreased; RASS: Alert and Calm (0) ph Disposition Summary: 02/23/21 08:49 Discharge Ordered Location: Home [facility] Problem: new jose Symptoms: have improved jose Condition: Stable jose Diagnosis - Pain in left lower leg - OLD CHRONIC DVT LEFT LEG, SEE REPORT jose - Chest pain, unspecified jose Followup: jose - With: Private Physician - When: 2 - 3 days - Reason: Recheck today's complaints, Continuance of care, Re-evaluation by your physician Followup: jose - With: - When: 2 - 3 days - Reason: Recheck today's complaints, Re-evaluation by your physician Discharge Instructions: - Discharge Summary Sheet jose - Nonspecific Chest Pain, Adult jose - Deep Vein Thrombosis jose - Musculoskeletal Pain jose - Nonspecific Chest Pain, Adult, [id number] [facility] Forms: - Medication Reconciliation Form [facility] - Thank You Letter [facility] - Antibiotic Education [facility] - Prescription Opioid Use [facility] Prescriptions: - Eliquis 5 mg Oral tablet - take 1 tablet by ORAL route 2 times per day; 40 tablet; Refills: 0, Product [facility] Selection Permitted - Pepcid 20 mg Oral Tablet - take 1 tablet by ORAL route every 12 hours for 15 days; 30 tablet; Refills: 0, [facility] Product Selection Permitted Signatures: Dispatcher [employer] EDChris Mariscal MD MD cha Pena, Laura, RN RN lp1 Roula Navarro RN RN ph Corrections: (The following items were deleted from the chart) 06:45 06:42 Chest For PE Angio+CT.RAD.BRZ ordered. EDND EDMS
--- NOTE | 2021-02-23 08:49 | ER ---
Nurse's Notes [facility] Name: Dwayne Walker Jr Age: 50 yrs Sex: Male : 1970 Arrival Date: 02/23/2021 Time: 06:33 Bed 7 Private MD: Diagnosis: Pain in left lower leg-OLD CHRONIC DVT LEFT LEG, SEE REPORT;Chest pain, unspecified Presentation: 02/23 06:38 Chief complaint: EMS states: Called for patient with left leg pain x 5 days; Reports hx lp1 of blood clots and blood clots in lungs, currently taking Eliquis; Reports throbbing pain to left leg, denies chest pain, shortness of breath. Coronavirus screen: Client denies travel out of the [place] in the last 14 days. At this time, the client does not indicate any symptoms associated with coronavirus-19. Ebola Screen: No symptoms or risks identified at this time. Initial Sepsis Screen: Does the patient meet any 2 criteria? No. Patient's initial sepsis screen is negative. Does the patient have a suspected source of infection? No. Patient's initial sepsis screen is negative. Risk Assessment: Do you want to hurt yourself or someone else? Patient reports no desire to harm self or others. Onset of symptoms was February 23, 2021. 06:38 Method Of Arrival: EMS: [facility] 1 06:38 Acuity: FÉLIX 3 lp1 Historical: - Allergies: 06:41 No Known Allergies; lp1 - Home Meds: 06:41 atorvastatin Oral [Active]; Eliquis 5 mg Oral tab 1 tab 2 times per day [Active]; lp1 gabapentin 800 mg Oral tab 1 tab 3 times per day [Active]; lisinopril 20 mg Oral tab 1 tab once daily [Active]; Hydrocodone-Acetaminophen Oral [Active]; - PMHx: 06:41 Anxiety; Chronic pain; DVT; GERD; High Cholesterol; Hypertension; Pulmonary Embolism; lp1 - PSHx: 06:41 Leg surgery; lp1 - Immunization history:: Adult Immunizations up to date. - Social history:: Smoking status: Patient reports the use of cigarette tobacco products, Patient/guardian denies using tobacco, Stopped _ months ago 5. - Family history:: not pertinent. Screenin:41 Abuse screen: Denies threats or abuse. Denies injuries from another. Nutritional lp1 screening: No deficits noted. Tuberculosis screening: No symptoms or risk factors identified. Fall Risk None identified. Assessment: 06:42 General: Appears in no apparent distress. Behavior is calm, cooperative. Pain: lp1 Complains of pain in left leg Pain currently is 6 out of 10 on a pain scale. Quality of pain is described as throbbing. Neuro: Level of Consciousness is awake, alert, obeys commands, Oriented to person, place, time, situation. Cardiovascular: Patient's skin is warm and dry. Respiratory: Respiratory effort is even, unlabored. GI: No signs and/or symptoms were reported involving the gastrointestinal system. : No signs and/or symptoms were reported regarding the genitourinary system. EENT: No signs and/or symptoms were reported regarding the EENT system. Derm: Skin is pink, warm \T\ dry. Musculoskeletal: No deficits noted. 08:00 Reassessment: Patient appears in no apparent distress at this time. Patient and/or ph family updated on plan of care and expected duration. Pain level reassessed. Patient is alert, oriented x 3, equal unlabored respirations, skin warm/dry/pink. Pt resting comfortably, awaiting lab and US results. 09:13 Reassessment: Patient appears in no apparent distress at this time. Patient and/or ph family updated on plan of care and expected duration. Pain level reassessed. Patient is alert, oriented x 3, equal unlabored respirations, skin warm/dry/pink. Vital Signs: 06:38 BP 156 / 90; Pulse 85; Resp 18; Temp 98.2(TE); Pulse Ox 98% on R/A; Weight 90.72 kg lp1 (R); Height 5 ft. 7 in. (170.18 cm); Pain 8/10; 07:36 BP 125 / 73; Pulse 67; Resp 18; Pulse Ox 94% on R/A; ph 09:13 BP 128 / 76; Pulse 72; Resp 18; Temp 97.8; Pulse Ox 97% on R/A; ph 06:38 Body Mass Index 31.32 (90.72 kg, 170.18 cm) lp1 ED Course: 06:33 Patient arrived in ED. lp1 06:35 Chris Olea MD is Attending Physician. [facility] 06:40 Triage completed. lp1 06:40 Arm band placed on. lp1 06:42 Paty Cam, RN is Primary Nurse. lp1 06:42 Patient has correct armband on for positive identification. lp1 06:51 Basic Metabolic Panel Sent. lp1 06:51 Lipase Sent. lp1 06:51 Basic Metabolic Panel Sent. lp1 06:51 CBC with Diff Sent. lp1 06:51 LFT's Sent. lp1 06:51 Magnesium Sent. lp1 06:51 NT PRO-BNP Sent. lp1 06:51 PT-INR Sent. lp1 06:51 Troponin (emerg Dept Use Only) Sent. lp1 06:55 Inserted saline lock: 20 gauge in right antecubital area, using aseptic technique. lp1 Blood collected. 07:00 XRAY Chest (1 view) In Process Unspecified. EDMS 07:46 US Extremity Venous W Compression Gene In Process Unspecified. EDMS 07:56 CT Aorta for Dissection: ro dissection, PE In Process Unspecified. EDMS 08:49 Bony Soriano MD is Referral Physician. jose 09:14 No provider procedures requiring assistance completed. IV discontinued, intact, ph bleeding controlled, No redness/swelling at site. Pressure dressing applied. Administered Medications: 07:00 Drug: Zofran (Ondansetron) 4 mg Route: IVP; Site: right antecubital; ph 08:17 Follow up: Response: No adverse reaction ph 07:09 Drug: morphine 2 mg Route: IVP; Site: right antecubital; ph 08:17 Follow up: Response: No adverse reaction; RASS: Alert and Calm (0) ph 07:10 Drug: NS 0.9% 1000 ml Route: IV; Rate: 1 bolus; Site: right antecubital; ph 09:57 Follow up: Response: No adverse reaction; IV Status: Completed infusion; IV Intake: ph 1000ml 09:35 Drug: morphine 2 mg Route: IVP; Site: right antecubital; ph 09:58 Follow up: Response: No adverse reaction; Pain is decreased; RASS: Alert and Calm (0) ph Intake: 09:57 IV: 1000ml; Total: 1000ml. ph Outcome: 08:49 Discharge ordered by . jose 09:57 Discharged to home ambulatory. ph 09:57 Condition: good 09:57 Discharge instructions given to patient, Instructed on discharge instructions, follow up and referral plans. medication usage, Demonstrated understanding of instructions, follow-up care, medications, Prescriptions given X 2. 09:58 Patient left the ED. ph Signatures: Dispatcher [employer] Chris Gonzalez MD MD cha Pena, Laura, RN RN lp1 Roula Navarro RN RN ph
[2021-02-23 10:07] VITALS: BP 128/76; TEMP 97.8; O2SAT 97
--- NOTE | 2021-02-24 16:14 | EKG ---
Test Date: 2021-02-23 Test Time: 06:56:43 [employer] Supervisor: DREA MEASUREMENT RESULTS: Intervals: Rate: 80 PA: 158 QRSD: 86 QT: 378 QTc: 435 [place]: P: 45 PA: 158 QRS: 18 T: 54 INTERPRETIVE STATEMENTS: Normal sinus rhythm Normal ECG Compared to ECG 01/10/2020 17:21:59 No significant changes Electronically Signed On 02-24-21 16:09:01 CDT by Bony Soriano
== END 2021-02-23 09:58 | disposition home or self-care (01) ==
LOC: ER 06:31
DX: I82.5Z2 Chronic embolism and thrombosis of unspecified deep veins of left distal lower extremity (principal); R07.9 Chest pain, unspecified; I10 Essential (primary) hypertension; Z79.01 Long term (current) use of anticoagulants
CPT/HCPCS: 96361; 93005; 85025; 80048; 36415; 83735; 85610; 80076; 84484; 83690; 83880; 71275; 74175; 71045; 93970; 96375; 96374; 99284; Q9967; J2270 ×2; J7030; J2405

== ENCOUNTER 2021-03-10 10:09 | Emergency (ER) | payer OTHER ==
--- OUTSIDE RECORDS SUMMARY | 2021-03-10 10:10 | XMS REPORT | Continuity of Care Document ---
:1970 Author Organization [facility] t Address [address] [place] [address] Care Team Providers Name Role Phone Unavailable [...] needed [facility] Gabapentin Gabapentin Yes Orion [address] [facility] Atorvastati Atorvastati Yes Orion [address] [facility] Calcium n Calcium [facility] Omeprazole Omeprazole Yes Orion [address] [facility] 30 minutes [facility] - before [facility] morning l meal [facility] Granby Granby Yes Orion [address] [facility] as needed [facility] Eliquis Eliquis Yes Orion TAKE [facility] TABLET BY [facility] - MOUTH [facility] EVERY DAY l [facility] Lisinopril Lisinopril Yes Orion [address] [facility] Cyclobenzap Cyclobenzap Yes Orion [address] [facility] rine HCl rine HCl [facility] as needed [facility] - [facility] Lisinopril Lisinopril Yes Orion TAKE [address] [facility] TABLET BY [facility] - MOUTH ONCE [facility] DAILY l [facility] Procedures This patient has no known procedures. Encounters Start End Encounter Admission Attending Care Care Encounter Source Date/Time Date/Time Type Type Clinicians Facility Department ID 2020-12-25 2020-[id number] 2020-09-18 2020-09-18 [facility] [id number] 2020-09-15 2020-09[id number] 2020-06-12 2020-06-12 [facility] [id number] 2020-06-02 2020-06-02 [facility] [id number] [facility] 2020-03-25 2020-03-25 [facility] [id number] [facility] 15[facility] 15:00:00 [facility] Outpati ent Clinics 2020-03-18 2020-03-18 [facility] [id number] 16:51:00 16:51:00 t [employer] [facility] Medicine l Medicine Outpati ent Clinics 2020-02-05 2020-02-05 [facility] [id number] 16:26:00 16:26:00 t [employer] [facility] Medicine l Medicine Outpati ent Clinics 2019-12-11 2019-12-11 [facility] [id number] [address] 13:15:00 13:15:00 t [employer] [facility] l Medicine Outpati ent Clinics 2019-10-16 2019-10-16 [facility] [id number] 08:56:00 08:56:00 t [facility] [facility] Medicine Outpati ent Clinics 2019-10-12 2019-10-12 [facility] [id number] 09:41:00 09:41:00 t [employer] [facility] Medicine Outpati ent Clinics 2019-09-26 2019-09-26 [facility] [id number] 09:14:00 09:14:00 t [employer] [facility] Outpat[facility] ent Clinics 2019-09-11 2019-09-11 [facility] [id number] 16:41:00 16:41:00 t [employer] [facility] Medicine Outpati ent Clinics 2019-09-11 2019-09-11 [facility] [id number] [facility] 14[facility]45:00 14:45:00 t [employer] [facility] Outpat[facility] Clinics Results This patient has no known results.
[2021-03-10 10:33] LABS: Absolute Lymphocytes (CBC) 2.4 K/uL (0.7-4.9); Hematocrit 47.8 % (39.6-49.0); MPV 7.1 fL (7.6-11.3); RBC Red Blood Cell Count 4.96 M/uL (4.33-5.43)
[2021-03-10] MEDS ORDERED: DIAZEPAM 10 MG/2 ML INJ SYRINGE ONE (10:37)
[2021-03-10] MEDS ORDERED: NACHLORIDE 0.45% 0 ML IV ONE (10:38)
[2021-03-10] MEDS ORDERED: NA CHLORIDE 0.9% 1,000 ML ONE (10:38)
[2021-03-10 10:55] LABS: ALT/SGPT 83 U/L (12-78); AST/SGOT 43 U/L (15-37); Albumin 3.7 g/dL (3.4-5.0); Alkaline Phosphatase 127 U/L (45-117); BUN Blood Urea Nitrogen 20 mg/dL (7-18); Bicarbonate 22 mmol/L (21-32); Bilirubin Total 0.6 mg/dL (0.2-1.0); Glucose Level 146 mg/dL (74-106); Potassium 4.5 mmol/L (3.5-5.1); Protein, Total 8.4 g/dL (6.4-8.2); Sodium Level 136 mmol/L (136-145)
--- NOTE | 2021-03-10 11:31 | RAD REPORT ---
EXAM DESCRIPTION: US - Extrem Venous W Compress Gene - 03/10/2021 11:22 am CLINICAL HISTORY: cramping;Pain Bilateral leg edema and swelling. COMPARISON: Extrem Venous W Compress Gene dated 02/23/2021 TECHNIQUE: Real-time sonographic interrogation of the left and right lower extremity deep venous sys tems was performed. FINDINGS: Normal compressibility, flow augmentation, phasic flow and spontaneous flow is identified in both the left and right lower extremity deep venous systems. IMPRESSION: No sonographic evidence of left or right lower extremity deep venous thrombosis.
--- NOTE | 2021-03-10 12:22 | EDPHYS ---
Physician Documentation [facility] Name: Dwayne Walker Jr Age: 50 yrs Sex: Male : 1970 Arrival Date: 03/10/2021 Time: 10:09 Bed 7 Private MD: ED Physician Tank Boswell HPI: 03/10 10:26 This 50 yrs old Male presents to ER via EMS with complaints of Leg Pain. pm1 10:26 The patient presents with cramping to entire legs bilaterally. The complaints affect pm1 the left leg and right leg. Context: resulted from an unknown cause, the patient can fully bear weight, the patient is able to ambulate. 10:26 Onset: The symptoms/episode began/occurred 1 week(s) ago. pm1 10:26 Modifying factors: The symptoms are alleviated by nothing. the symptoms are aggravated pm1 by nothing. Associated signs and symptoms: Pertinent negatives calf tenderness, fever, numbness, swelling, tingling. Treatment prior to arrival includes: prescription medications, hydrocodone. Severity of symptoms: in the emergency department the symptoms are unchanged. The patient has experienced similar episodes in the past, multiple times. It is unknown whether or not the patient has recently seen a physician. Patient with bilateral leg cramping and pain for 1 week. Reports history of chronic left leg DVT and reports similar symptoms with prior DVT. Historical: - Allergies: 10:12 No Known Drug Allergies; hb - Home Meds: 10:12 atorvastatin Oral [Active]; Eliquis 5 mg Oral tab 1 tab 2 times per day [Active]; hb Eliquis Oral [Active]; gabapentin 800 mg Oral tab 1 tab 3 times per day [Active]; Hydrocodone-Acetaminophen Oral [Active]; lisinopril 20 mg Oral tab 1 tab once daily [Active]; Omeprazole Oral [Active]; - PMHx: 10:12 Anxiety; Chronic pain; DVT; GERD; High Cholesterol; Hypertension; Pulmonary Embolism; hb - PSHx: 10:12 Leg surgery; hb - Immunization history:: Adult Immunizations up to date. - Social history:: Smoking status: Patient denies any tobacco usage or history of. ROS: 10:26 Constitutional: Negative for fever, chills, and weight loss. pm1 10:26 Cardiovascular: Negative for chest pain, palpitations, and edema, Respiratory: Negative for shortness of breath, cough, wheezing, and pleuritic chest pain, Abdomen/GI: Negative for abdominal pain, nausea, vomiting, diarrhea, and constipation, Back: Negative for injury and pain. 10:26 Skin: Negative for injury, rash, and discoloration, Neuro: Negative for headache, weakness, numbness, tingling, and seizure. 10:26 MS/extremity: Positive for pain, of the right leg and left leg, Negative for injury or acute deformity, decreased range of motion, deformity. Exam: 10:26 Constitutional: This is a well developed, well nourished patient who is awake, alert, pm1 and in no acute distress. Head/Face: Normocephalic, atraumatic. 10:26 Back: No spinal tenderness. No costovertebral tenderness. Full range of motion. Skin: Warm, dry with normal turgor. Normal color with no rashes, no lesions, and no evidence of cellulitis. 10:26 Cardiovascular: Rate: normal, Rhythm: regular, Pulses: no pulse deficits are appreciated, Edema: is not appreciated. 10:26 Respiratory: Exam negative for acute changes, respiratory distress, shortness of breath. 10:26 Musculoskeletal/extremity: Extremities: all appear grossly normal, with no appreciated pain with palpation, DVT Exam: No signs of deep vein thrombosis. no pain, no swelling, no tenderness, no erythema, no increased warmth. 10:26 Neuro: Orientation: is normal, Mentation: is normal, Motor: is normal, moves all fours. Vital Signs: 10:09 BP 151 / 106; Pulse 98; Resp 16; Temp 98.3; Pulse Ox 96% on R/A; Weight 111.13 kg; hb Height 5 ft. 7 in. (170.18 cm); Pain 2/10; 11:19 BP 123 / 70; Pulse 91; Resp 17; Pulse Ox 95% on R/A; hb 12:10 BP 136 / 94; Pulse 80; Resp 15; Pulse Ox 93% ; jl7 10:09 Body Mass Index 38.37 (111.13 kg, 170.18 cm) hb MDM: 10:12 Patient medically screened. pm1 12:20 Data reviewed: vital signs. Counseling: I had a detailed discussion with the patient pm1 and/or guardian regarding: the historical points, exam findings, and any diagnostic results supporting the discharge/admit diagnosis, lab results, radiology results, the need for outpatient follow up, to return to the emergency department if symptoms worsen or persist or if there are any questions or concerns that arise at home. 12:57 ED course: COUNSELING PROGRAM LEADER aware reviewed. Pain patient. Will not give prescription medications. pm1 03/10 10:13 Order name: CBC with Diff; Complete Time: 10:53 pm1 03/10 10:13 Order name: CMP; Complete Time: 10:56 pm1 03/10 10:13 Order name: Extrem Venous W Compression Gene US; Complete Time: 11:43 pm1 03/10 10:13 Order name: IV Saline Lock; Complete Time: 10:28 pm1 Administered Medications: 10:28 Drug: NS 0.9% 1000 ml Route: IV; Rate: 1000 ml; Site: right antecubital; jl7 12:55 Follow up: Response: No adverse reaction; IV Status: Completed infusion; IV Intake: jl7 1000ml 10:28 Drug: Valium (diazepam) 5 mg Route: IVP; Site: right antecubital; jl7 10:50 Follow up: Response: No adverse reaction; Pain is decreased jl7 12:43 Drug: Stark (HYDROcodone-acetaminophen) 10 mg-325 mg 1 tabs Route: PO; jl7 13:05 Follow up: Response: No adverse reaction; Medication administered at discharge. jl7 Disposition: 03/11 07:06 Co-signature as Attending Physician, Tank Boswell MD I agree with the assessment and kdr plan of care. Disposition Summary: 03/10/21 12:21 Discharge Ordered Location: Home pm1 Problem: new pm1 Symptoms: have improved pm1 Condition: Stable pm1 Diagnosis - Muscle spasm pm1 Followup: pm1 - With: Emergency Department - When: As needed - Reason: Worsening of condition Followup: pm1 - With: Private Physician - When: 2 - 3 days - Reason: Recheck today's complaints, Continuance of care, Re-evaluation by your physician Discharge Instructions: - Discharge Summary Sheet pm1 - Muscle Cramps and Spasms pm1 Forms: - Medication Reconciliation Form pm1 - Thank You Letter pm1 - Antibiotic Education pm1 - Prescription Opioid Use pm1 Signatures: Dispatcher [employer] EDMS Tank Boswell MD MD kdr Marinas, Patrick, NP DISPUTE RESOLUTION ANALYST pm1 Claritza Diaz, RN RN hb Yolanda Adame, RN RN jl7
--- NOTE | 2021-03-10 12:22 | ER ---
Nurse's Notes [facility] Name: Dwayne Walker Jr Age: 50 yrs Sex: Male : 1970 Arrival Date: 03/10/2021 Time: 10:09 Bed 7 Private MD: Diagnosis: Muscle spasm Presentation: 03/10 10:09 Chief complaint: EMS states: Intermittent bilateral leg pain x 1 week. Hx of DVT. hb Coronavirus screen: At this time, the client does not indicate any symptoms associated with coronavirus-19. Ebola Screen: No symptoms or risks identified at this time. Initial Sepsis Screen: Does the patient meet any 2 criteria? No. Patient's initial sepsis screen is negative. Does the patient have a suspected source of infection? No. Patient's initial sepsis screen is negative. Risk Assessment: Do you want to hurt yourself or someone else? Patient reports no desire to harm self or others. Onset of symptoms was March 10, 2021. 10:09 Method Of Arrival: EMS: [facility] 10:09 Acuity: FÉLIX 3 hb Historical: - Allergies: 10:12 No Known Drug Allergies; hb - Home Meds: 10:12 atorvastatin Oral [Active]; Eliquis 5 mg Oral tab 1 tab 2 times per day [Active]; hb Eliquis Oral [Active]; gabapentin 800 mg Oral tab 1 tab 3 times per day [Active]; Hydrocodone-Acetaminophen Oral [Active]; lisinopril 20 mg Oral tab 1 tab once daily [Active]; Omeprazole Oral [Active]; - PMHx: 10:12 Anxiety; Chronic pain; DVT; GERD; High Cholesterol; Hypertension; Pulmonary Embolism; hb - PSHx: 10:12 Leg surgery; hb - Immunization history:: Adult Immunizations up to date. - Social history:: Smoking status: Patient denies any tobacco usage or history of. Screenin:12 Abuse screen: Denies threats or abuse. Denies injuries from another. Nutritional hb screening: No deficits noted. Tuberculosis screening: No symptoms or risk factors identified. Fall Risk None identified. Assessment: 10:13 General: Appears in no apparent distress. uncomfortable, Behavior is calm, cooperative, jl7 appropriate for age. Pain: Complains of pain in right leg and left leg Pain currently is 2 out of 10 on a pain scale. at worst was 10 out of 10 on a pain scale. Quality of pain is described as crampy, Pain began 1 day ago. Is continuous. Neuro: Level of Consciousness is awake, alert, obeys commands, Oriented to person, place, time, situation. Cardiovascular: Patient's skin is warm and dry. Respiratory: Airway is patent Respiratory effort is even, unlabored, Respiratory pattern is regular, symmetrical. GI: Abdomen is round. Derm: Skin is pink, warm \T\ dry. 11:19 Reassessment: Patient appears in no apparent distress at this time. Patient and/or hb family updated on plan of care and expected duration. Pain level reassessed. Patient is alert, oriented x 3, equal unlabored respirations, skin warm/dry/pink. 12:30 Reassessment: MAHAD Damon at bedside discussing results and POC. jl7 12:50 Reassessment: Pt will be discharged once fluids are done infusing. jl7 Vital Signs: 10:09 BP 151 / 106; Pulse 98; Resp 16; Temp 98.3; Pulse Ox 96% on R/A; Weight 111.13 kg; hb Height 5 ft. 7 in. (170.18 cm); Pain 2/10; 11:19 BP 123 / 70; Pulse 91; Resp 17; Pulse Ox 95% on R/A; hb 12:10 BP 136 / 94; Pulse 80; Resp 15; Pulse Ox 93% ; jl7 10:09 Body Mass Index 38.37 (111.13 kg, 170.18 cm) ED Course: 10:09 Patient arrived in ED. hb 10:12 Nelson Cruz NP is PHCP. pm1 10:12 Tank Boswell MD is Attending Physician. pm1 10:12 Triage completed. hb 10:12 Yolanda Adame RN is Primary Nurse. jl7 10:12 Arm band placed on. hb 10:12 Patient has correct armband on for positive identification. Bed in low position. Call light in reach. 10:13 Pulse ox on. NIBP on. jl7 10:28 Initial lab(s) drawn, by me, sent to lab. Inserted saline lock: 20 gauge in right jl7 antecubital area, using aseptic technique. Blood collected. 11:01 Extrem Venous W Compression Gene US In Process Unspecified. EDMS 13:04 No provider procedures requiring assistance completed. IV discontinued, intact, jl7 bleeding controlled, No redness/swelling at site. Pressure dressing applied. Administered Medications: 10:28 Drug: NS 0.9% 1000 ml Route: IV; Rate: 1000 ml; Site: right antecubital; jl7 12:55 Follow up: Response: No adverse reaction; IV Status: Completed infusion; IV Intake: jl7 1000ml 10:28 Drug: Valium (diazepam) 5 mg Route: IVP; Site: right antecubital; jl7 10:50 Follow up: Response: No adverse reaction; Pain is decreased jl7 12:43 Drug: Raymond (HYDROcodone-acetaminophen) 10 mg-325 mg 1 tabs Route: PO; jl7 13:05 Follow up: Response: No adverse reaction; Medication administered at discharge. jl7 Intake: 12:55 IV: 1000ml; Total: 1000ml. jl7 Outcome: 12:21 Discharge ordered by . pm1 13:04 Discharged to home ambulatory. jl7 13:04 Condition: stable 13:04 Discharge instructions given to patient, Instructed on discharge instructions, follow up and referral plans. Demonstrated understanding of instructions, follow-up care. 13:05 Patient left the ED. jl7 Signatures: Dispatcher [employer] EDMS Nelson Cruz NP LIBERAL ARTS TEACHER pm1 Claritza Diaz RN RN Yolanda Adame RN RN jl7
[2021-03-10] MEDS ORDERED: HYDROCODONE/APAP 10/325 TAB ONE (13:02)
[2021-03-10 13:21] VITALS: TEMP 98.3
[2021-03-10 13:24] VITALS: BP 136/94; O2SAT 93
== END 2021-03-10 13:05 | disposition home or self-care (01) ==
LOC: ER 10:09
DX: M62.838 Other muscle spasm (principal); M79.605 Pain in left leg; M79.604 Pain in right leg; I10 Essential (primary) hypertension; Z79.01 Long term (current) use of anticoagulants; Z86.718 Personal history of other venous thrombosis and embolism
CPT/HCPCS: 85025; 36415; 80053; 93970; J3360; J7030; 96361; 96374; 99284

== ENCOUNTER 2022-01-25 10:59 | Inpatient (IN) | payer OTHER ==
--- OUTSIDE RECORDS SUMMARY | 2022-01-25 11:03 | XMS REPORT | Continuity of Care Document ---
:1970 Author Organization [facility] t Address [address] [place] [address] Care Team Providers Name Role Phone DIANA JIMENEZ Primary Care Physician Unavailable Michelle Jimenez Attending Clinician Unavailable Pati TAVERAS, L Attending Clinician Lizbet ATKINS Attending Clinician Unavailable Doctor Unassigned, Name Attending Clinician Unavailable Payers Payer Name Policy Type Policy Number Effective Date Expiration Date S ource Problems Condition Condition Condition Status Onset Resolution Last Treating Co mments Source Name Details Category Date Date Treatment Clinician Date Dyslipidem Dyslipidem Disease Active U nivers ia ia 05-09 ity of 00:00: [address] Essential Essential Disease Active Uni vers hypertensi hypertensi 04-27 it y of on on 00:00: [address] Chronic Chronic Disease Active Univers deep vein deep vein 04-27 [place] ([place] of 00 Medica l popliteal popliteal Bran ch vein vein Chronic Chronic Disease Active Univers pulmonary pulmonary 04-27 ity of embolism embolism 00:00: [address] No known No known Disease Unive rs active active ity of problems problems [facility] Allergies, Adverse Reactions, Alerts Allergy Allergy Status Severity Reaction(s) Onset Inactive Treating Comm ents Source Name Type Date Date Clinician NO KNOWN Drug Active Univers ALLERGIE Class ity of S [facility] Social History Social Habit Start Date Stop Date Quantity Comments Source History SDOH University o f Alcohol Std [place] Medical Drinks Branch History SDPA University o f Alcohol Binge [place] [facility] al Branch Exposure to 2022-01-05 2022-01-15 Not sure University SARS-CoV-2 00:00:00 10:20:00 [facility] (event) Branch Alcohol intake 2021-12-28 2021-12-28 Lifetime University of 00:00:00 00:00:00 non-drinker [facility] (finding) Branch History SDOH 2021-12-21 2021-12-21 1 University o f Alcohol Frequency 00:00:00 00:00:00 [facility] edical Branch Tobacco use and 2021-12-21 2021-12-21 Never used Universit y of exposure 00:00:00 00:00:00 [facility] Alcohol Comment 2018-04-27 2018-04-27 3 glasses of Univers ity of 00:00:00 00:00:00 liquor /5 days a [facility] dical week Branch Sex [birth year] At [birth year] Universit y of 00:00:00 00:00:00 [facility] Smoking Status Start Date Stop Date Source Never smoker [facility] Medications Ordered Filled Start Stop Current Ordering Indication Dosage Frequency Signature Comments Components Source Medication Medication Date Date Medication? Clinician (SIG) Name Name methylPREDN Yes [id number] 84mg Take 21 Univers ISolone 5-27 tablets by ity of (MEDROL, 00:00: mouth [place] RITU,) 4 mg 00 SEE-INSTRU Med ical tablets CTIONS. Branch follow package directions methylPREDN Yes [id number] 84mg Take 21 Univers ISolone 5-27 tablets by ity of (MEDROL, 00:00: mouth [place] RITU,) 4 mg 00 SEE-INSTRU Med ical tablets CTIONS. Branch follow package directions colchicine 2021- Yes [id number] .6mg Take 0.6 Univers 0.6 mg Cap 5-27 06-07 mg by ity of 00:00: 04:59 mouth 2 [place] 00 :00 (two) Medical times Branch daily for 10 days. colchicine 2021- Yes [id number] .6mg Take 0.6 Univers 0.6 mg Cap 5-27 06-07 mg by ity of 00:00: 04:59 mouth 2 [place] 00 :00 (two) Medical times Branch daily for 10 days. lisinopriL 2021-0 Yes 40mg Take 40 mg U nivers 40 mg 3-21 by mouth ity of tablet 00:00: daily. Medical Branch atorvastati 0 Yes 20mg Take 20 mg Univers n 20 mg 3-21 by mouth ity of tablet 00:00: daily. Medical Branch ELIQUIS 5 0 Yes 5mg Take 5 mg Uni vers mg tablet 3-21 by mouth ity of 00:00: daily. [facility] Branch lisinopriL 0 Yes 40mg Take 40 mg U nivers 40 mg 3-21 by mouth ity of tablet 00:00: daily. [facility] Branch atorvastati 0 Yes 20mg Take 20 mg Univers n 20 mg 3-21 by mouth ity of tablet 00:00: daily. [facility] Branch ELIQUIS 5 0 Yes 5mg Take 5 mg Uni vers mg tablet 3-21 by mouth ity of 00:00: daily. [facility] Branch lisinopriL 0 Yes 40mg Take 40 mg U nivers 40 mg 3-21 by mouth ity of tablet 00:00: daily. [facility] Branch atorvastati 0 Yes 20mg Take 20 mg Univers n 20 mg 3-21 by mouth ity of tablet 00:00: daily. [facility] Branch ELIQUIS 5 0 Yes 5mg Take 5 mg Uni vers mg tablet 3-21 by mouth ity of 00:00: daily. [facility] Branch lisinopriL 0 Yes 40mg Take 40 mg U nivers 40 mg 3-21 by mouth ity of tablet 00:00: daily. [facility] Branch atorvastati 0 Yes 20mg Take 20 mg Univers n 20 mg 3-21 by mouth ity of tablet 00:00: daily. [facility] Branch ELIQUIS 5 0 Yes 5mg Take 5 mg Uni vers mg tablet 3-21 by mouth ity of 00:00: daily. [place] [facility] Branch HydrOXYzine HydrOXYzine 2019-0 Yes Diana 1 tablet Common HCl HCl 8-04 Jimenez as needed Spirit 00:00: - [facility] acetaminoph 2017-08 Yes 1{tbl} Take 1 Un gavin en-codeine 2-27 tablet by ity of (TYLENOL-CO 00:00: mouth [place] DEINE #3) 00 every 6 Medical 300-30 mg (six) Branch tablet hours as needed for Pain (scale 4-6) (for cough). acetaminoph 2017-08 Yes 1{tbl} Take 1 Un gavin en-codeine 2-27 tablet by ity of (TYLENOL-CO 00:00: mouth [place] DEINE #3) 00 every 6 Medical 300-30 mg (six) Branch tablet hours as needed for Pain (scale 4-6) (for cough). acetaminoph 2017-08 Yes 1{tbl} Take 1 Un gavin en-codeine 2-27 tablet by ity of (TYLENOL-CO 00:00: mouth [place] DEINE #3) 00 every 6 Medical 300-30 mg (six) Branch tablet hours as needed for Pain (scale 4-6) (for cough). LISINOPRIL 2017-08 Yes TAKE 1 Unive rs 20 mg 2-06 TABLET BY ity of tablet 00:00: MOUTH ONCE [place] 00 DAILY Medical Branch LISINOPRIL 2017-08 Yes TAKE 1 Unive rs 20 mg 2-06 TABLET BY ity of tablet 00:00: MOUTH ONCE [place] 00 DAILY Medical Branch LISINOPRIL 2017-08 Yes TAKE 1 Unive rs 20 mg 2-06 TABLET BY ity of tablet 00:00: MOUTH ONCE [place] 00 DAILY Medical Branch acetaminoph 2017-08 Yes Take by Un gavin en with 1-26 mouth ity of codeine 15:32: every 6 [place] (TYLENOL-CO 49 (six) Medical DEINE #3 hours as Branch ORAL) needed (Pain). apixaban 2017-08 Yes 5mg Take 5 mg Univ ers (ELIQUIS) 5 -26 by mouth 2 it y of mg tablet 15:32: (two) [place] 49 times Medical daily. Branch thiamine 2017-08 Yes 100mg Take 100 Univ ers (VITAMIN 1-26 mg by ity of B-1) 100 mg 15:32: mouth [place] tablet 49 daily. Medical Branch foLIC acid 2017-08 Yes 1mg Take 1 mg Un gavin 1 mg tablet -26 by mouth ity of 15:32: daily. [place] [address] Medical Branch hydroCHLORO 2017-08 Yes 12.5mg Take 12.5 Univers thiazide 1-26 mg by ity of 12.5 mg 15:32: mouth [place] capsule 49 daily. Medical Branch acetaminoph 2017-08 Yes Take by Un gavin en with 1-26 mouth ity of codeine 15:32: every 6 [place] (TYLENOL-CO 49 (six) Medical DEINE #3 hours as Branch ORAL) needed (Pain). apixaban 2017-08 Yes 5mg Take 5 mg Univ ers (ELIQUIS) 5 1-26 by mouth 2 it y of mg tablet 15:32: (two) [place] 49 times Medical daily. Branch thiamine 2017-08 Yes 100mg Take 100 Univ ers (VITAMIN 1-26 mg by ity of B-1) 100 mg 15:32: mouth [place] tablet 49 daily. Medical Branch foLIC acid 2017-08 Yes 1mg Take 1 mg Un gavin 1 mg tablet 1-26 by mouth ity of 15:32: daily. [place] [address] Medical Branch hydroCHLORO 2017-08 Yes 12.5mg Take 12.5 Univers thiazide 1-26 mg by ity of 12.5 mg 15:32: mouth [place] capsule 49 daily. Medical Branch acetaminoph 2017-08 Yes Take by Un gavin en with 1-26 mouth ity of codeine 15:32: every 6 [place] (TYLENOL-CO 49 (six) Medical DEINE #3 hours as Branch ORAL) needed (Pain). apixaban 2017-08 Yes 5mg Take 5 mg Univ ers (ELIQUIS) 5 1-26 by mouth 2 it y of mg tablet 15:32: (two) [place] 49 times Medical daily. Branch thiamine 2017-08 Yes 100mg Take 100 Univ ers (VITAMIN 1-26 mg by ity of B-1) 100 mg 15:32: mouth [place] tablet 49 daily. Medical Branch foLIC acid 2017-08 Yes 1mg Take 1 mg Un gavin 1 mg tablet 1-26 by mouth ity of 15:32: daily. [place] [address] Medical Branch hydroCHLORO 2017-08 Yes 12.5mg Take 12.5 Univers thiazide 1-26 mg by ity of 12.5 mg 15:32: mouth [place] capsule 49 daily. Medical Branch apixaban [id number] Yes 5mg Take 5 mg Univ ers (ELIQUIS) 5 9-06 by mouth 2 it y of mg (74 00:00: (two) [place] tabs) DsPk 00 times Medical daily. Branch apixaban 2018-0 Yes 5mg Take 5 mg Univ ers (ELIQUIS) 5 04-27 by mouth 2 it y of mg (74 00:00: (two) [place] tabs) DsPk 00 times Medical daily. Branch apixaban 2018-0 Yes 5mg Take 5 mg Univ ers (ELIQUIS) 04-27 by mouth 2 it y of mg (74 00:00: (two) [place] tabs) DsPk 00 times Medical daily. Branch Gabapentin Gabapentin Yes Diana 1 tablet Common Jimenez Spirit - [facility] Atorvastati Atorvastati Yes Diana 1 tablet Common n Calcium n Calcium Jimenez Spir it - [facility] Omeprazole Omeprazole Yes Diana 1 capsule Common Jimenez 30 minutes Spirit before - CHI morning [facility] Excel Excel Yes Diana 1 tablet Common Jimenez as needed [facility] Eliquis Eliquis Yes Diana TAKE 1 Commo n Jimenez TABLET BY Spirit MOUTH - [facility]I EVERY DAY [facility] Lisinopril Lisinopril Yes Diana 1 tablet Common Jimenez [facility] Cyclobenzap Cyclobenzap Yes Diana 1 tablet Common rine HCl rine HCl Jimenez as needed S pirit [facility] Lisinopril Lisinopril Yes Diana TAKE 1 Common Jimenez TABLET BY Spirit MOUTH ONCE - CHI DAILY [facility] Vital Signs Vital Name Observation Time Observation Value Comments Source Systolic blood 2022-01-15 15:31:00 145 mm[facility]Hg[facility] pressure [facility] Diastolic blood 2022-01-15 15:31:00 91 mm[Hg[facility] pressure [facility] Heart rate 2022-01-15 15:31:00 90 /min [facility] Oxygen saturation 2022-01-15 15:31:00 95 /min [facility] in Arterial blood Medical Br anch by Pulse oximetry Body height 2022-01-15 15:22:00 167.6 cm [facility] Body weight 2022-01-15 15:22:00 100.2 kg [facility] BMI 2022-01-15 15:22:00 35.65 kg/m2 [facility] Systolic blood 2021-12-21 20:39:00 153 mm[Hg] Univer sity [facility] Diastolic blood 2021-12-21 20:39:00 74 mm[facility]Hg[facility] Heart rate 2021-12-21 20:39:00 87 /min [facility] Body height 2021-12-21 20:39:00 170.2 cm [facility] Body weight 2021-12-21 20:39:00 63.05 kg [facility] BMI 2021-12-21 20:39:00 21.77 kg/m2 [facility] Procedures Procedure Date / Time Performed Performing Clinician Sour e SCANNED LAB RESULTS 2021-12-28 05:01:00 Doctor Unassigned, No Un [facility] Encounters Start End Encounter Admission Attending Care Care Encounter Source Date/Time Date/Time Type Type Clinicians Facility Department ID 2021-12-24 Outpatient Jimenez, STLMLC STLMLC [id number] Common 08:55:00 Diana [facility] 2021-10-21 Outpatient Jimenez, STLMLC STLMLC [id number] Common 10:55:01 Diana [facility] 2021-10-12 Outpatient Jimenez, STLMLC STLMLC [id number] Common 09:48:01 [facility] 2021-10-08 Outpatient Jimenez, STLMLC STLMLC [id number] Common 11:48:01 Diana [facility] 2021-09-16 Outpatient Jimenez, STLMLC STLMLC [id number] Common 14:12:10 Diana [facility] 2021-09-16 Outpatient Jimenez, STLMLC STLMLC [id number] Common 13:35:35 Diana [facility] 2021-09-16 Outpatient Jimenez, STLMLC STLMLC [id number] Common 12:59:49 Diana [facility] 2021-09-16 Outpatient Jimenez, STLMLC STLMLC [id number] Common 12:53:40 Diana 92642 [facility] 2021-09-16 Outpatient Jimenez, STLMLC STLMLC [id number] Common 12:24:31 Diana 38263 [facility] 2021-09-16 Outpatient Jimenez, STLMLC STLMLC [id number] Common 11:58:12 Diana 67172 [facility] 2021-09-16 Outpatient Jimenez, STLMLC STLMLC [id number] Common 11:57:01 Diana 20138 [facility] 2021-09-16 Outpatient Jimenez, STLMLC STLMLC [id number] Common 11:32:27 Diana 11045 [facility] 2021-09-16 Outpatient Jimenez, STLMLC STLMLC [id number] Common 11:18:43 Diana 51123 [facility] 2021-09-16 Outpatient Jimenez, STLMLC STLMLC [id number] Common 11:17:53 Diana 09973 [facility] 2021-09-16 Outpatient Jimenez, STLMLC STLC [id number] Common 11:02:12 Diana 94871 [facility] 2022-01-20 2022-01-20 Telephone Pati [facility] [id number] Univers 00:00:00 00:00:00 [place] [id number]..[id number] it y of [place] [id number] Rigoberto as YOBANY?BLEA [phone] Md carol [address] OFFICE BUILDING 2022-01-15 2022-01-15 [facility] [id number] Univers 11:00:00 11:32:20 Visit [facility] [id number] [facility] [id number] Rigoberto as YOBANY?BLEA [id number] [address] OFFICE BUILDING 2022-01-15 2022-01-15 [facility] [id number] Univers 11:00:00 11:32:20 [facility] 2021-12-28 2021-12-28 Orders Doctor TOBAR [id number] Univers 00:00:00 00:00:00 Only Unassigned, AYSHA [id number] [facility] [id number] Rigoberto as [id number] [address] 2021-12-23 2021-12-23 ambulatory STLMLC STLMLC [id number] Common 00:00:00 00:00:00 [facility] 2021-12-21 2021-12-21 [facility] [id number] Univers 15:43:28 23:59:00 [facility] 2021-12-21 2021-12-21 [facility] [id number] Univers 15:30:00 16:07:00 Visit [facility] [id number] it y of [place] [id number] Rigoberto as YOBANY?BLEA [phone] [address] MEDICAL OFFICE BUILDING 2021-11-11 2021-11-11 ambulatory STLMLC STLMLC [id number] Common 00:00:00 00:00:00 [facility] 2021-11-02 2021-11-02 ambulatory STLMLC STLMLC [id number] Common 00:00:00 00:00:00 [facility] 2021-07-02 2021-07-02 ambulatory STLMLC STLMLC [id number] Common 00:00:00 00:00:00 [facility] 2021-03-30 2021-03-30 Outpatient STLMLC STLMLC [id number] Common 00:00:00 00:00:00 [facility] 2020-12-25 2020-12-25 Outpatient STLMLC STLMLC [id number] Common 00:00:00 00:00:00 [facility] 2020-09-18 2020-09-18 Outpatient STLMLC STLMLC [id number] Common 00:00:00 00:00:00 [facility] 2020-09-15 2020-09-15 Outpatient STLMLC STLMLC [id number] Common 00:00:00 00:00:00 [facility] 2020-06-12 2020-06-12 Outpatient STLMLC STLMLC [id number] Common 00:00:00 00:00:00 [facility] 2020-06-02 2020-06-02 Outpatient STLMLC STLMLC [id number] Common 00:00:00 00:00:00 [facility] 2020-03-25 2020-03-25 [facility] [id number] Common 15:00:00 15:00:00 [place] [address] [facility] 2020-03-18 2020-03-18 Outpatient [facility] [id number] Common 16:51:00 16:51:00 [place] [address] Sp[address] [facility] 2020-02-05 2020-02-05 Outpatient [facility] [id number] Common 16:26:00 16:26:00 [place] [address] Sp[address] [facility] 2019-12-11 2019-12-11 Outpatient [facility] [id number] Common 13:15:00 13:15:00 [place] [address] Sp[address] [facility] 2019-10-16 2019-10-16 Outpatient [facility] [id number] Common 08:56:00 08:56:00 [place] [address] Sp[address] [facility] 2019-10-12 2019-10-12 Outpatient [facility] [id number] Common 09:41:00 09:41:00 [place] [address] Spir [address] Drive [facility] 2019-09-26 2019-09-26 Outpatient [facility] [id number] Common 09:14:00 09:14:00 [place] [address] Sp[address] [facility] 2019-09-11 2019-09-11 Outpatient [facility] [id number] Common 16:41:00 16:41:[address] [facility] 2019-09-11 2019-09-11 Outpatient Mahamed Joseph [id number] Common 14:45:00 14:45:[address] [facility] Results This patient has no known results.
[2022-01-25 11:42] LABS: Absolute Lymphocytes (CBC) 1.4 K/uL (0.7-4.9); Hematocrit 51.7 % (39.6-49.0); Lymphocytes % 12.7 % (15.3-44.8); MPV 7.2 fL (7.6-11.3); RBC Red Blood Cell Count 5.42 M/uL (4.33-5.43)
[2022-01-25] MEDS ORDERED: NA CHLORIDE 0.9% 1,000 ML ONE (11:45)
[2022-01-25] MEDS ORDERED: ONDANSETRON 4 MG/2 ML VIAL ONE (11:45)
[2022-01-25] MEDS ORDERED: MORPHINE 4 MG/ML SYR ONE (11:45)
[2022-01-25 12:11] LABS: Albumin 4.2 g/dL (3.4-5.0); Bilirubin Total 1.2 mg/dL (0.2-1.0); Potassium 4.6 mmol/L (3.5-5.1)
--- NOTE | 2022-01-25 12:50 | RAD REPORT ---
EXAM DESCRIPTION: CT - Abdomen Pelvis W Contrast - 01/25/2022 12:34 pm CLINICAL HISTORY: Abdominal pain, acute, nonlocalized COMPARISON: Abdomen Pelvis W Contrast dated 05/02/2020 TECHNIQUE: Biphasic, helical CT imaging of the abdomen and pelvis was performed following 100 ml non -ionic IV contrast. No oral contrast administered. All CT scans are performed using dose optimization technique as appropriate and may include automated exposure control or mA/KV adjustment according to patient size. FINDINGS: No suspicious findings in the lung bases. Mild diffuse fatty infiltration of the liver with no focal liver lesion. No portal vein abnormality. Pancreas and spleen show no suspicious findings. Gallbladder and biliary tree are also without suspic ious finding. Symmetric renal function is seen with no hydronephrosis or suspicious renal mass. No pyelonephritis o r acute parenchymal process. No bladder abnormalities. No adrenal abnormalities. No significant prost ate gland or seminal vesicle finding. No gastric or duodenal abnormality. Proximal jejunum is normal. In the distal jejunum into the proxim al ileum there are multiple dilated small bowel loops up to 3.3 cm. In the proximal jejunum there is an abrupt transition in bowel diameter. Proximal to this transition point the small bowel content is fecalized. Distal ileum is unremarkable. The appendix and colon show no acute findings. Colon is most ly decompressed. There is prominent sigmoid diverticulosis without diverticulitis. No free air, free fluid or inflammatory stranding. No mass or bulky lymphadenopathy. A fat only um bilical hernia is present similar to prior imaging. Fat extends into the origin of each inguinal jose l. No compression fracture or pathologic bone process. Surgical hardware is present from prior pelvic pr ocedure. Bridging ossification is seen across numerous thoracic and lumbar vertebrae. This has an ank ylosing spondylitis appearance. IMPRESSION: Small bowel obstruction pattern is seen. Patient has an abrupt transition in the proxima l ileum with bowel content fecalized proximal to this transition point. No definitive mass seen at the transition point. A small bowel mass is possible. Focal scarring from prior inflammatory small bowel process is a consideration. Adhesion etiology is possible along with i nternal hernia etiology if there has been intraperitoneal procedure.
--- NOTE | 2022-01-25 13:11 | ER ---
Nurse's Notes [facility] Name: Dwayne Walker Jr Age: 51 yrs Sex: Male : 1970 Arrival Date: 01/25/2022 Time: 11:00 Bed 16 Private MD: Diagnosis: Small Bowel Obstruction Presentation: 01/25 11:02 Chief complaint: EMS states: extreme abd pain , hx of gout, hernia, htn, took some iw medicine for his gout and started having pain , was told it was one of the side effects of the medicine , vomited 4 times this morning. Coronavirus screen: At this time, the client does not indicate any symptoms associated with coronavirus-19. Ebola Screen: Patient negative for fever greater than or equal to 101.5 degrees Fahrenheit, and additional compatible Ebola Virus Disease symptoms Patient denies exposure to infectious person. Patient denies travel to an Ebola-affected area in the 21 days before illness onset. No symptoms or risks identified at this time. Initial Sepsis Screen: Does the patient meet any 2 criteria? No. Patient's initial sepsis screen is negative. Does the patient have a suspected source of infection? No. Patient's initial sepsis screen is negative. Risk Assessment: Do you want to hurt yourself or someone else? Patient reports no desire to harm self or others. Onset of symptoms was January 25, 2022. 11:02 Method Of Arrival: EMS: [facility] iw 11:02 Acuity: FÉLIX 3 iw Historical: - Allergies: 11:03 No Known Allergies; iw - Home Meds: :54 Omeprazole Oral [Active]; Hydrocodone-Acetaminophen Oral [Active]; lisinopril 20 mg tw2 Oral tab 1 tab once daily [Active]; Eliquis 5 mg oral tab 1 tab 2 times per day [Active]; gabapentin 800 mg Oral tab 1 tab 3 times per day [Active]; atorvastatin Oral [Active]; - PMHx: 11:03 Anxiety; Chronic pain; DVT; GERD; High Cholesterol; Hypertension; Pulmonary Embolism; iw - PSHx: 11:03 Leg surgery; iw - Immunization history:: Adult Immunizations. - Social history:: Smoking status: . Screenin:54 Abuse screen: Denies threats or abuse. Nutritional screening: No deficits noted. tw2 Tuberculosis screening: No symptoms or risk factors identified. Fall Risk None identified. Assessment: 11:53 General: Appears in no apparent distress. uncomfortable, Behavior is calm, cooperative, tw2 appropriate for age. Pain: Complains of pain in abdomen. Neuro: Level of Consciousness is awake, alert, obeys commands, Oriented to person, place, time, situation. Respiratory: Airway is patent Respiratory effort is even, unlabored, Respiratory pattern is regular, symmetrical. GI: Abdomen is round non-distended, Reports lower abdominal pain, upper abdominal pain. Musculoskeletal: Range of motion: intact in all extremities. 12:39 Reassessment: Patient appears in no apparent distress at this time. Patient and/or tw2 family updated on plan of care and expected duration. Pain level reassessed. Patient is alert, oriented x 3, equal unlabored respirations, skin warm/dry/pink. 14:20 Reassessment: Patient and/or family updated on plan of care and expected duration. Pain tw2 level reassessed. Patient is alert, oriented x 3, equal unlabored respirations, skin warm/dry/pink. pt anxious after 4 failed NG attempts. pt crying and intolerable to further attempts. 14:59 Reassessment: Dr. Begum hospitalist at bedside at this time. tw2 16:27 Reassessment: Patient appears in no apparent distress at this time. Patient and/or tw2 family updated on plan of care and expected duration. Pain level reassessed. Patient is alert, oriented x 3, equal unlabored respirations, skin warm/dry/pink. 17:56 Reassessment: Patient appears in no apparent distress at this time. Patient and/or tw2 family updated on plan of care and expected duration. Pain level reassessed. Patient is alert, oriented x 3, equal unlabored respirations, skin warm/dry/pink. pt placed in hospital bed at this time. 18:46 Reassessment: Patient appears in no apparent distress at this time. Patient and/or tw2 family updated on plan of care and expected duration. Pain level reassessed. Patient is alert, oriented x 3, equal unlabored respirations, skin warm/dry/pink. 20:52 Reassessment: Patient appears in no apparent distress at this time. No changes from lg3 previously documented assessment. Patient and/or family updated on plan of care and expected duration. Pain level reassessed. Patient is alert, oriented x 3, equal unlabored respirations, skin warm/dry/pink. 21:13 General: attempted to call report. nurse not available . lg3 Vital Signs: 11:16 BP 131 / 82; Pulse 93; Resp 16; Temp 97.7; Pulse Ox 98% on R/A; iw 12:39 BP 116 / 82; Pulse 91; Resp 17; Pulse Ox 98% on R/A; tw2 14:20 BP 139 / 96; Pulse 101; Resp 19; Pulse Ox 99% on R/A; tw2 15:30 BP 146 / 96; Pulse 104; Resp 17; Pulse Ox 99% on R/A; tw2 16:26 BP 124 / 84; Pulse 90; Resp 17; Pulse Ox 96% on R/A; tw2 17:36 BP 125 / 85; Pulse 80; Resp 17; Pulse Ox 97% on R/A; tw2 18:46 BP 133 / 90; Pulse 75; Resp 17; Pulse Ox 95% on R/A; tw2 20:52 BP 138 / 87; Pulse 80; Resp 18; Pulse Ox 96% on R/A; lg3 ED Course: 11:00 Patient arrived in ED. as 11:03 Triage completed. iw 11:03 Arm band placed on. iw 11:11 Chris Tomlinson PA is PHCP. cp 11:11 Carlos Escoto MD is Attending Physician. cp 11:33 Bed in low position. Call light in reach. Side rails up X 1. Pulse ox on. NIBP on. Warm tw2 blanket given. 11:36 Vicky Galvan, RN is Primary Nurse. tw2 11:40 Initial lab(s) drawn, by me, sent to lab. Inserted saline lock: 20 gauge in right iw antecubital area, using aseptic technique. Blood collected. 12:36 CT Abd/Pelvis - IV Contrast Only In Process Unspecified. EDMS 13:09 Dionicio Begum is Hospitalizing Provider. cp 13:42 Blood Culture Adult (2) Sent. tw2 13:42 Procalcitonin Sent. tw2 13:42 Lactate Sent. tw2 13:49 Lactate Sent. tw2 13:49 Procalcitonin Sent. tw2 14:18 NGT: Patient tolerated 4 separate attempts for NG tube with 16f and 14f unsuccessful tw2 attempts. pt states "no more", provider notifeid. 16:41 COVID,FLU,RSV CPL (Document "Date of Onset" if Symptomatic) Sent. tw2 19:25 Primary Nurse role handed off by Vicky Galvan RN mw2 21:13 Charo Dale, CARLO is Primary Nurse. lg3 21:34 No provider procedures requiring assistance completed. Patient admitted, IV remains in lg3 place. intact, No redness/swelling at site. 21:54 COVID-19 SARS RT PCR (Document "Date of Onset" if Symptomatic) Sent. lg3 Administered Medications: 13:16 Discontinued: NS 0.9% 1000 ml IV at 500 ml/hr once cp 11:45 Drug: Zofran (Ondansetron) 4 mg Route: IVP; Site: right antecubital; tw2 13:34 Follow up: Response: No adverse reaction tw2 11:45 Drug: NS 0.9% 1000 ml Route: IV; Rate: 500 ml/hr; Site: right antecubital; tw2 13:34 Follow up: Response: No adverse reaction; IV Status: Completed infusion; IV Intake: tw2 1000ml 11:46 Drug: morphine 4 mg Route: IVP; Infused Over: 4 mins; Site: right antecubital; tw2 13:34 Follow up: Response: No adverse reaction; Pain is decreased tw2 13:39 Not Given (Duplicate Order; per providerr): NS 0.9% 1000 ml IV at 1 bolus Per protocol; tw2 1000 mL bolus 13:49 Drug: Dilaudid (HYDROmorphone) 1 mg Route: IVP; Site: right antecubital; tw2 14:20 Follow up: Response: No adverse reaction; Pain is decreased; RASS: Alert and Calm (0) tw2 13:49 Drug: NS 0.9% 1000 ml Route: IV; Rate: 1 bolus; Site: right antecubital; tw2 21:54 Follow up: Response: No adverse reaction; IV Status: Completed infusion; IV Intake: lg3 1000ml 13:49 Drug: NS 0.9% 1000 ml Route: IV; Rate: 100 ml/hr; Site: right antecubital; tw2 21:54 Follow up: IV Status: Infusion continued upon admission lg3 14:19 Drug: metroNIDAZOLE 500 mg Volume: 100 ml; Route: IVPB; Infused Over: 30 mins; Site: tw2 right antecubital; 14:58 Follow up: Response: No adverse reaction; IV Status: Completed infusion; IV Intake: tw2 100ml 14:58 Drug: Cipro (ciprofloxacin) 400 mg Volume: 200 ml; Route: IVPB; Infused Over: 60 mins; tw2 Site: right antecubital; 16:00 Follow up: Response: No adverse reaction; IV Status: Completed infusion; IV Intake: tw2 200ml Medication: 11:54 VIS not applicable for this client. tw2 Intake: 13:34 IV: 1000ml; Total: 1000ml. tw2 14:58 IV: 100ml; Total: 1100ml. tw2 16:00 IV: 200ml; Total: 1300ml. tw2 21:54 IV: 1000ml; Total: 2300ml. lg3 Outcome: 13:10 Decision to Hospitalize by Provider. cp 21:34 Admitted to Tele accompanied by tech, via wheelchair, room 408, Report called to [place] 3 21:34 Condition: stable 21:34 Instructed on the need for admit, Demonstrated understanding of instructions. 22:04 Patient left the ED. lg3 Signatures: Dispatcher [employer] Melly Eaton Irene, RN RN Chris Tomlinson PA PA cp Wise, Tara, RN RN tw2 Heavenly Mralow 2 Charo Dale, RN RN lg3
--- NOTE | 2022-01-25 13:11 | EDPHYS ---
Physician Documentation [facility] Name: Dwayne Walker Jr Age: 51 yrs Sex: Male : 1970 Arrival Date: 01/25/2022 Time: 11:00 Bed 16 Private MD: ED Physician Carlos Escoto HPI: 01/25 11:23 This 51 yrs old Male presents to ER via EMS with complaints of Vomiting, cp Abdominal Pain. 11:23 The patient presents to the emergency department with nausea, that is moderate, cp vomiting, that is intermittent, abdominal pain, of the upper and mid abdomen, described as waxing and waning, and does not radiate. Onset: The symptoms/episode began/occurred this morning, about 0400. Possible causes: unknown. 11:23 Associated signs and symptoms: Pertinent positives: abdominal pain, nausea, vomiting, cp Pertinent negatives: constipation, diarrhea, dysuria, fever, GI bleeding. 11:23 Severity of symptoms: in the emergency department the symptoms are unchanged despite cp home interventions. Historical: - Allergies: 11:03 No Known Allergies; iw - Home Meds: 11:54 Omeprazole Oral [Active]; Hydrocodone-Acetaminophen Oral [Active]; lisinopril 20 mg tw2 Oral tab 1 tab once daily [Active]; Eliquis 5 mg oral tab 1 tab 2 times per day [Active]; gabapentin 800 mg Oral tab 1 tab 3 times per day [Active]; atorvastatin Oral [Active]; - PMHx: 11:03 Anxiety; Chronic pain; DVT; GERD; High Cholesterol; Hypertension; Pulmonary Embolism; iw - PSHx: 11:03 Leg surgery; iw - Immunization history:: Adult Immunizations. - Social history:: Smoking status: . ROS: 11:30 Constitutional: Negative for body aches, chills, fever. cp 11:30 Eyes: Negative for injury, pain, redness, and discharge. cp 11:30 ENT: Negative for drainage from ear(s), ear pain, sore throat, difficulty swallowing, difficulty handling secretions. 11:30 Cardiovascular: Negative for chest pain, edema, palpitations. 11:30 Respiratory: Negative for cough, shortness of breath, wheezing. 11:30 Abdomen/GI: Positive for abdominal pain, nausea and vomiting, Negative for diarrhea, constipation, black/tarry stool, rectal bleeding. 11:30 Back: Positive for pain at rest. 11:30 : Negative for urinary symptoms, testicular pain 11:30 Neuro: Negative for altered mental status, dizziness, headache, weakness. 11:30 All other systems are negative. Exam: 11:35 Constitutional: The patient appears in no acute distress, alert, awake, cp non-diaphoretic, non-toxic, well developed, well nourished, uncomfortable. 11:35 Head/Face: Normocephalic, atraumatic. cp 11:35 Eyes: Periorbital structures: appear normal, Conjunctiva: normal, no exudate, no injection, Sclera: no appreciated abnormality, Lids and lashes: appear normal, bilaterally. 11:35 ENT: External ear(s): are unremarkable, Nose: is normal, Mouth: Lips: moist, Oral mucosa: pink and intact, moist, Posterior pharynx: Airway: no evidence of obstruction, patent. 11:35 Chest/axilla: Inspection: normal, Palpation: is normal, no crepitus, no tenderness. 11:35 Cardiovascular: Rate: normal, Rhythm: regular, Edema: is not appreciated, JVD: is not appreciated. 11:35 Respiratory: the patient does not display signs of respiratory distress, Respirations: normal, no use of accessory muscles, no retractions, labored breathing, is not present, Breath sounds: are clear throughout, no decreased breath sounds, no stridor, no wheezing. 11:35 Abdomen/GI: Inspection: distension, that is mild, Bowel sounds: active, all quadrants, cp Palpation: soft, in all quadrants, severe abdominal tenderness, in all quadrants, voluntary guarding, is elicited in all quadrants, Hernia: noted in the umbilical area, incarceration, is not appreciated, tenderness, that is mild. 11:35 Back: pain, that is moderate. cp 11:35 Skin: cellulitis, is not appreciated, no rash present. 11:35 Neuro: Orientation: to person, place \\T\\ time. Mentation: is normal. Vital Signs: 11:16 BP 131 / 82; Pulse 93; Resp 16; Temp 97.7; Pulse Ox 98% on R/A; iw 12:39 BP 116 / 82; Pulse 91; Resp 17; Pulse Ox 98% on R/A; tw2 14:20 BP 139 / 96; Pulse 101; Resp 19; Pulse Ox 99% on R/A; tw2 15:30 BP 146 / 96; Pulse 104; Resp 17; Pulse Ox 99% on R/A; tw2 16:26 BP 124 / 84; Pulse 90; Resp 17; Pulse Ox 96% on R/A; tw2 17:36 BP 125 / 85; Pulse 80; Resp 17; Pulse Ox 97% on R/A; tw2 18:46 BP 133 / 90; Pulse 75; Resp 17; Pulse Ox 95% on R/A; tw2 20:52 BP 138 / 87; Pulse 80; Resp 18; Pulse Ox 96% on R/A; lg3 MDM: 11:35 Patient medically screened. cp 12:00 Differential diagnosis: gastritis, cholecystitis, pancreatitis, appendicitis, cp diverticulitis, viral gastroenteritis, gastroenteritis, bowel obstruction. 12:55 Data reviewed: vital signs, nurses notes, lab test result(s), radiologic studies, CT cp scan. 12:55 Counseling: I had a detailed discussion with the patient and/or guardian regarding: the cp historical points, exam findings, and any diagnostic results supporting the discharge/admit diagnosis, lab results, radiology results, the need for further work-up and treatment in the hospital. Response to treatment: the patient's symptoms have mildly improved after treatment, and as a result, I will admit patient. 12:55 Physician consultation: Mac Doty MD was contacted at 12:55, regarding consult, patient's condition. 13:05 Physician consultation: Dionicio Begum was called at 13:05, was contacted at 13:05, cp regarding admission, to the medical/surgical unit. patient's condition. 01/25 11:16 Order name: CBC with Diff; Complete Time: 12:22 iw 01/25 12:22 Interpretation: Normal except: WBC 11.1; HCT 51.7; MPV 7.2; JED% 81.0; LYM% 12.7; NEUT cp A 9.0. 01/25 11:16 Order name: CMP; Complete Time: 12:22 iw 01/25 12:23 Interpretation: Normal except: GLUC 161; GFR 82; AST 56; ALT 105; BILIT 1.2; TP 9.0; cp GLOB 4.8; A/G 0.9. 01/25 11:16 Order name: Lipase; Complete Time: 12:22 iw 01/25 12:22 Interpretation: LIP 63; Reviewed. 01/25 11:25 Order name: Magnesium; Complete Time: 12:22 01/25 12:23 Interpretation: MG 2.4; Reviewed. 01/25 13:03 Order name: Lactate 01/25 13:03 Order name: Procalcitonin 01/25 11:35 Order name: CT Abd/Pelvis - IV Contrast Only; Complete Time: 12:51 01/25 12:52 Interpretation: Report reviewed. 01/25 13:03 Order name: Blood Culture Adult (2) 01/25 14:11 Order name: Abdomen W Erect EDKY 01/25 17:19 Order name: COVID-19 SARS RT PCR (Document "Date of Onset" if Symptomatic) 01/25 18:56 Order name: SARS-COV-2 RT PCR EDKY 01/25 11:16 Order name: IV Saline Lock; Complete Time: 11:50 iw 01/25 11:16 Order name: Labs collected and sent; Complete Time: 11:50 iw Administered Medications: 13:16 Discontinued: NS 0.9% 1000 ml IV at 500 ml/hr once cp 11:45 Drug: Zofran (Ondansetron) 4 mg Route: IVP; Site: right antecubital; tw2 13:34 Follow up: Response: No adverse reaction tw2 11:45 Drug: NS 0.9% 1000 ml Route: IV; Rate: 500 ml/hr; Site: right antecubital; tw2 13:34 Follow up: Response: No adverse reaction; IV Status: Completed infusion; IV Intake: tw2 1000ml 11:46 Drug: morphine 4 mg Route: IVP; Infused Over: 4 mins; Site: right antecubital; tw2 13:34 Follow up: Response: No adverse reaction; Pain is decreased tw2 13:39 Not Given (Duplicate Order; per providerr): NS 0.9% 1000 ml IV at 1 bolus Per protocol; tw2 1000 mL bolus 13:49 Drug: Dilaudid (HYDROmorphone) 1 mg Route: IVP; Site: right antecubital; tw2 14:20 Follow up: Response: No adverse reaction; Pain is decreased; RASS: Alert and Calm (0) tw2 13:49 Drug: NS 0.9% 1000 ml Route: IV; Rate: 1 bolus; Site: right antecubital; tw2 21:54 Follow up: Response: No adverse reaction; IV Status: Completed infusion; IV Intake: lg3 1000ml 13:49 Drug: NS 0.9% 1000 ml Route: IV; Rate: 100 ml/hr; Site: right antecubital; tw2 21:54 Follow up: IV Status: Infusion continued upon admission lg3 14:19 Drug: metroNIDAZOLE 500 mg Volume: 100 ml; Route: IVPB; Infused Over: 30 mins; Site: tw2 right antecubital; 14:58 Follow up: Response: No adverse reaction; IV Status: Completed infusion; IV Intake: tw2 100ml 14:58 Drug: Cipro (ciprofloxacin) 400 mg Volume: 200 ml; Route: IVPB; Infused Over: 60 mins; tw2 Site: right antecubital; 16:00 Follow up: Response: No adverse reaction; IV Status: Completed infusion; IV Intake: tw2 200ml Disposition: 01/26 18:28 Co-signature as Attending Physician, Carlos Escoto MD. rn Disposition Summary: 01/25/22 13:10 Hospitalization Ordered Hospitalization Status: Inpatient Admission cp Provider: Dionicio Begum cp [facility] cp Condition: Stable cp Problem: new cp Symptoms: have improved cp Bed/Room Type: Standard cp Room Assignment: 408(01/25/22 20:43) bb Diagnosis - Small Bowel Obstruction cp Discharge Instructions: - Discharge Summary Sheet tw2 Forms: - Medication Reconciliation Form cp - Work release form tw2 - SBAR form cp Signatures: Dispatcher [employer] Chrissie Spencer RN RN bb Williams, Irene, RN RN iw Nieto, Roman, MD MD rn Page, Corey, PA PA cp Vicky Galvan RN RN tw2 Charo Dale RN lg3 Corrections: (The following items were deleted from the chart) 01/25 12:23 12:22 Normal except: GLUC 161; GFR 82. cp cp 13:40 13:17 Chest Single View+RAD.RAD.BRZ ordered. EDMS EDMS 14:25 13:03 NG Tube ordered. cp tw2 20:43 13:10 cp bb
[2022-01-25] MEDS ORDERED: CIPROFLOXACIN 400mg IV 400 MG/200 ML BAG IV ONE (13:43)
[2022-01-25] MEDS ORDERED: HYDROMORPHONE HCL 0.5 MG/0.5 ML INJ ONE (13:43)
[2022-01-25] MEDS ORDERED: NA CHLORIDE 0.9% 2,000 ML ONE (13:44)
[2022-01-25] MEDS ORDERED: METRONIDAZOLE 500mg IVPB 500 MG/100 ML BAG IV ONE (13:44)
--- NOTE | 2022-01-25 14:14 | P.HP ---
Certification for Inpatient Patient admitted to: Inpatient With expected LOS: >2 Midnights Practitioner: I am a practitioner with admitting privileges, knowledge of patient current condition, hospital course, and medical plan of care. Services: Services provided to patient in accordance with Admission requirements found in Title 42 Section 412.3 of the Code of Federal Regulations Patient History Date of Service: 01/25/22 Reason for admission: Abdominal pain History of Present Illness: 51-year-old gentleman with a PMHx of chronic pain, umbilical hernia presented to the emergency department with a complaint of sudden onset abdominal pain, 10/10 in intensity, intermittent and colicky, associated nausea and vomiting. Patient has vomited about 6 times, no hematemesis. Patient also denies any fever, no diarrhea. CT abdomen and pelvis done in the emergency department demonstrate small bowel obstruction with transition point. Patient has been following with Dr. Doty regarding his umbilical hernia. Dr. Doty informed of the small bowel obstruction. Patient is hospitalized for further management. Attempt at NG tube insertion in the ED was unsuccessful. Allergies No Known Drug Allergies Allergy (Verified 02/16/18 18:15) Unknown No Allergy (Uncoded 02/16/18 18:15) Unknown No Known Allergies Allergy (Uncoded 03/24/18 10:57) Unknown Home Medications: RX: Gabapentin 800 mg PO TID 02/16/18 RX: Oxycodone HCl 15 mg PO Q6HR PRN 02/16/18 RX: Folic Acid 1 mg PO DAILY #30 tablet 02/20/18 RX: Thiamine HCl [Vitamin B-1*] 100 mg PO DAILY #30 tablet 02/20/18 RX: lisinopriL [Prinivil*] 20 mg PO DAILY #30 tab 02/20/18 Albuterol Sulfate [Proair Hfa] 8.5 gm IH TID PRN #1 [email or web address] 05/15/18 Apixaban [Eliquis] 5 mg PO BID #60 tablet 05/15/18 Fluticasone/Salmeterol [Airduo Respiclick 113-14 Mcg] 1 each IH BID #1 aer.pow.ba 05/15/18 RX: Pantoprazole [Protonix Tab*] 40 mg PO DAILYAC #30 tab 05/15/18 RX: carvediloL [Coreg*] 12.5 mg PO BID #60 tab 05/15/18 - Past Medical/Surgical History Diabetic: No -: Hypertension -: GERD -: Chronic pain secondary to fall injury -: Scoliosis -: Pulmonary embolism/DVT, January 2018 -: Alcohol abuse -: Tobacco abuse -: fell through roof, multiple fractures -: bilateral hip repair -: bilateral leg feet fracture repairs -: lower spine fractures 13 areas Psychosocial/ Personal History: Patient is single. 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 - Family History Mother -: Hypertension Father -: Heart disease - Social History Alcohol use: Yes CD- Drugs: Yes Caffeine use: Yes Review of Systems Other: Except as documented, all other systems reviewed and negative. Physical Examination - Physical Exam General: Alert, In no apparent distress, Oriented x3 HEENT: Mucous membr. moist/pink, EOMI, Sclerae nonicteric Neck: Supple, JVD not distended Respiratory: Clear to auscultation bilaterally, Normal air movement Cardiovascular: No edema, Regular rate/rhythm, Normal S1 S2, No murmurs Capillary refill: <2 Seconds Gastrointestinal: Normal bowel sounds, Soft and benign, No tenderness, Distended Musculoskeletal: No swelling, No tenderness Integumentary: No rashes, No cyanosis Neurological: Normal strength at 5/5 x4 extr, Cranial nerves 3-12 intact Lymphatics: No axilla or inguinal lymphadenopathy - Studies Laboratory Data (last 24 hrs) 01/25/22 11:25: Magnesium 2.4 D 01/25/22 11:25: Sodium 136, Potassium 4.6, BUN 16, Creatinine 1.08, Glucose 161 H, Total Bilirubin 1.2 H, AST 56 H, ALT 105 H, Alkaline Phosphatase 112, Lipase 63 L 01/25/22 11:25: WBC 11.1 H, Hgb 17.5, Hct 51.7 H, Plt Count 324 Assessment and Plan - Problems (Diagnosis) (1) Small bowel obstruction Current Visit: Yes Status: Acute (2) Umbilical hernia Current Visit: Yes Status: Acute (3) History of DVT (deep vein thrombosis) Current Visit: Yes Status: Acute (4) History of pulmonary embolism Current Visit: Yes Status: Acute - Plan Admit to the medical floor. Supportive measures with IV fluid, pain management and antiemetics as needed. NG tube insertion 4 times unsuccessful in the ED. Patient is no longer vomiting. Empiric IV Zosyn. Consult to general surgery-Dr. Doty Serial abdominal examination Keep n.p.o. Monitor intake and output Monitor and optimize electrolytes. Last Eliquis dose was around 12 AM today. - Advance Directives Does patient have a Living Will: No Does patient have a Durable POA for Healthcare: No
[2022-01-25 21:58] VITALS: BMI 33.8
[2022-01-25] MEDS: D5 0.9 NS 1,000 ML IV SCH (22:33)
[2022-01-25] MEDS: PIPER TAZO 3.375 GM in NA CHLORIDE 0.9% 100 ML IV SCH (22:33)
[2022-01-25] MEDS: HEPARIN 5000 UNIT/ML 1 ML VIAL SQ SCH (22:34)
[2022-01-25] MEDS: HYDROMORPHONE HCL 1 MG/ML INJ IV PRN (22:35)
[2022-01-25] MEDS: ONDANSETRON 4 MG/2 ML VIAL IV PRN (22:40)
[2022-01-26] MEDS: HYDROMORPHONE HCL 1 MG/ML INJ IV PRN ×6 (02:10→21:05)
[2022-01-26 03:47] LABS: Absolute Lymphocytes (CBC) 1.7 K/uL (0.7-4.9); Hematocrit 44.3 % (39.6-49.0); Lymphocytes % 18.6 % (15.3-44.8); MPV 7.3 fL (7.6-11.3); RBC Red Blood Cell Count 4.62 M/uL (4.33-5.43)
[2022-01-26 04:04] LABS: Urine Appearance Clear (Clear); Urine Bilirubin Negative (Negative); Urine Blood Negative (Negative); Urine Color Yellow (Yellow); Urine Glucose Negative (Negative); Urine Protein Negative (Negative); Urine Specific Gravity 1.025 (1.005-1.030)
[2022-01-26 04:05] LABS: Urine Microscopic Reflex NO UMIC
[2022-01-26 04:06] LABS: Albumin 3.1 g/dL (3.4-5.0); Bilirubin Total 1.1 mg/dL (0.2-1.0); Magnesium 2.4 mg/dL (1.8-2.4); Phosphorus 2.7 mg/dL (2.5-4.9); Potassium 4.2 mmol/L (3.5-5.1); Protein, Total 6.9 g/dL (6.4-8.2)
[2022-01-26] MEDS: PIPER TAZO 3.375 GM in NA CHLORIDE 0.9% 100 ML IV SCH ×3 (06:17→21:11)
--- NOTE | 2022-01-26 07:24 | P.PN ---
Date of Service: 01/26/22 Subjective: Passed gas x1 this morning, no nausea/vomiting since arrival to the floor Feels about the same, pain medication helps, lasting barely 4 hours ROS: 10 point ROS as noted above, otherwise negative Physical exam GEN: Alert, oriented, NAD HEENT: Normal conjunctiva, sclera anicteric CV: Regular rate and rhythm, no edema Pulm: Nonlabored respirations on room air ABD: distended, TTP in left abdomen Integumentary: No rashes Neuro: Normal speech, normal affect Problem List Small bowel obstruction Umbilical hernia History of DVT History of PE Continue medical managementn.p.o., IV fluids, pain medication, antiemetics NG tube unsuccessful x4 in the ED, refuses any further attempts No further nausea/vomiting Still feels very bloated, passed gas x1 this morning Continue empiric IV Zosyn General surgery consulted KUB today VTE: lovenox Code: full Dispo: home, ~2-3 days Time Spent Managing Pts Care (In Minutes): 35
[2022-01-26] MEDS: D5 0.9 NS 1,000 ML IV SCH ×2 (08:57→18:24)
[2022-01-26] MEDS: HEPARIN 5000 UNIT/ML 1 ML VIAL SQ SCH ×2 (09:00→16:59)
--- NOTE | 2022-01-26 10:58 | RAD REPORT ---
EXAM DESCRIPTION: RAD - Abdomen Single View - 01/26/2022 10:51 am CLINICAL HISTORY: sbo COMPARISON: Abdomen Pelvis W Contrast dated 01/25/2022 FINDINGS: Multiple dilated small bowel loops are still present in the central abdomen matching the C T study of 01/25/2022. No free air or pneumatosis identifiable. Colon remains mostly decompressed. No suspicious calcifications. No significant bony findings IMPRESSION: No change to the small bowel dilatation pattern compared to 01/25/2022 CT study. No free air or pneumatosis.
--- NOTE | 2022-01-26 14:35 | CON ---
Date of Consultation: 01/26/2022 Reason For Service: Small bowel obstruction. History Of Present Illness: This is the case of a 51-year-old patient, who comes to us with nausea a nd abdominal pain and spasms since last night. The patient was admitted to the hospital after found to have bowel obstruction and a surgical consult was obtained. Apparently, the patient was seen in t he past by another surgeon, who was planning in the future to do a hernia surgery, although the herni a at this moment is not the one causing the bowel obstruction. He asked me to see him at this time. The worse was last night. Today, he is starting to feel better and is starting to passing gas. He denies any prior episode. He has a past medical history including PEs and DVTs and he is morbidly ob roberto. His surgeon also asked him to loose some weight. Past Medical History: Anxiety, DVTs, GERD, hypercholesterolemia, history of pulmonary embolism, hype rtension. Past Surgical History: Includes extremity surgery. No abdominal surgeries. Allergies: NONE. Endos: The patient says he had a colonoscopy and endoscopy done several months ago with no masses se en. He is due to have another 1 in the next month or so. He could not tell us exactly where this ce nter is. Social History: He does not smoke. He does not drink alcohol. Family History: Noncontributory. Review of Systems: As above. See H and P. Physical Examination: General: The patient is awake, alert. HEENT: Pupils are equal and reactive. Anicteric. Neck: Supple. Chest: Clear. Abdomen: Soft and depressible. Softly distended. The patient has an umbilical hernia, reducible. The patient also has diastasis recti. Extremities: Good capillary refill. No calf tenderness. Laboratory Data: CAT scan of abdomen and pelvis interpreted by Dr. Galdamez as small bowel obstructio n, etiology of that is unknown. No pneumatosis. Assessment: It is a 51-year-old patient with small bowel obstruction. He is starting to feel better . He is trying to pass gas. He understands the options of exploratory laparotomy, although obviousl y he does not want to use at this moment if he is improving. He refused NG tube placement. Based on those conditions, we are going to ask him to early ambulation, DVT prophylaxis. If he is improving, then he may have time for a workup by the GI to see if there is any reason for this small bowel obst ruction that can be fixed surgically. At the same time, the hernia can be fixed. If he has improved and the bowel obstruction resolved and there is no specific reason for it, then he was advised to se e his previous surgeon to continue with the plans of his hernia repair. ELA Voice ID: [id number] Report ID: [id number]
[2022-01-27] MEDS: HEPARIN 5000 UNIT/ML 1 ML VIAL SQ SCH ×3 (01:04→16:40)
[2022-01-27] MEDS: HYDROMORPHONE HCL 1 MG/ML INJ IV PRN ×6 (01:18→22:06)
[2022-01-27] MEDS: D5 0.9 NS 1,000 ML IV SCH ×3 (05:08→21:24)
[2022-01-27] MEDS: PIPER TAZO 3.375 GM in NA CHLORIDE 0.9% 100 ML IV SCH ×3 (06:16→22:04)
--- NOTE | 2022-01-27 09:44 | RAD REPORT ---
EXAM DESCRIPTION: RAD - Abdomen 1 View (KUB) - 01/27/2022 9:21 am CLINICAL HISTORY: f/u SBO Pain COMPARISON: Abdomen Single View dated 01/26/2022; Abdomen Pelvis W Contrast dated 01/25/2022 FINDINGS: Mildly dilated and organized central small bowel loops again seen appearing mildly improve d since yesterday's study. Two screws are present in the pelvis, in the inferior screw appears fractu red. Ankylosing spondylitis changes in the lumbar spine. IMPRESSION: Mild improvement is seen in the mechanical small bowel obstruction pattern since prior s tudy.
[2022-01-27] MEDS ORDERED: MINERAL OIL 30 ML UCUP PO ONE (11:47)
--- NOTE | 2022-01-27 12:52 | PN ---
Date of Progress Note: 01/27/2022 Reason For Service: Small bowel obstruction. Subjective: The patient is doing better. No nausea. No vomiting. Having bowel movement and starte d passing some gas. Physical Examination: Chest: Clear. Abdomen: Soft and depressible. Mildly distended. No guarding or rebound. Imaging Data: X-ray shows improvement of his condition. Plan: Start clear liquid diet. We will then give him some mineral oil. He understands the importan ce of following up with his type caster regardless if this opened or not. It is important caleb t the endoscopies are done. Last colonoscopy and upper endoscopy he says were done 2 years ago. The etiology of that is stenosis or stricture. Even though it is opened, we still have to do some resea rch. He understands that part. He wants to get some diet, so we are going to start clear liquid. Nida e previously refused NG tube. SHARON/PATRICK Voice ID: [id number] Report ID: [id number]
--- NOTE | 2022-01-27 18:47 | P.PN ---
Date of Service: 01/27/22 Subjective: passed more gas still in pain, slow to move around / get out of bed due to pain feels abdomen is softer no nausea/vomiting ROS: 10 point ROS as noted above, otherwise negative Physical exam GEN: Alert, oriented, uncomfortable appearing HEENT: Normal conjunctiva, sclera anicteric CV: Regular rate and rhythm, no edema Pulm: Nonlabored respirations on room air ABD: mild-mod distended, TTP in left abdomen Integumentary: No rashes Neuro: Normal speech, normal affect Problem List Small bowel obstruction Umbilical hernia History of DVT History of PE Continue medical managementn.p.o., IV fluids, pain medication, antiemetics NG tube unsuccessful x4 in the ED, refuses any further attempts No further nausea/vomiting Still feels bloated, but improving; +flatus several times in last 1hr Continue empiric IV Zosyn General surgery consulted, possibly advance to clears KUB today VTE: lovenox Code: full Dispo: home, ~2-3 days Time Spent Managing Pts Care (In Minutes): 35
[2022-01-28] MEDS: HEPARIN 5000 UNIT/ML 1 ML VIAL SQ SCH ×3 (01:43→16:24)
[2022-01-28] MEDS: HYDROMORPHONE HCL 1 MG/ML INJ IV PRN ×4 (02:10→14:11)
[2022-01-28 05:03] LABS: Albumin 2.9 g/dL (3.4-5.0); Bilirubin Total 1.1 mg/dL (0.2-1.0); Magnesium 2.1 mg/dL (1.8-2.4); Potassium 3.7 mmol/L (3.5-5.1); Protein, Total 6.5 g/dL (6.4-8.2)
[2022-01-28] MEDS: PIPER TAZO 3.375 GM in NA CHLORIDE 0.9% 100 ML IV SCH ×3 (06:20→21:51)
--- NOTE | 2022-01-28 07:01 | P.PN ---
Date of Service: 01/28/22 Subjective: improving tolerating clears, still requiring IV pain meds small BM yesterday, +flatus today ROS: 10 point ROS as noted above, otherwise negative Physical exam GEN: Alert, oriented, uncomfortable appearing HEENT: Normal conjunctiva, sclera anicteric CV: Regular rate and rhythm, no edema Pulm: Nonlabored respirations on room air ABD: mild distended, TTP in left abdomen Integumentary: No rashes Neuro: Normal speech, normal affect Problem List Small bowel obstruction Umbilical hernia History of DVT History of PE NG tube unsuccessful x4 in the ED, refuses any further attempts improving, No further nausea/vomiting Continue medical management, clear liquids, dc IVF Still feels bloated, but improving; +flatus several times, small BM yesterday Continue empiric IV Zosyn General surgery consulted KUB tomorrow VTE: lovenox Code: full Dispo: home, ~1-2 days Time Spent Managing Pts Care (In Minutes): 35
[2022-01-28] MEDS: D5 0.9 NS 1,000 ML IV SCH ×2 (07:17→16:25)
[2022-01-28] MEDS ORDERED: POTASSIUM CL SA 10 MEQ TAB PO ONE (09:00)
[2022-01-28] MEDS ORDERED: TRAMADOL HCL 50 MG TAB PO PRN (15:53)
[2022-01-28] MEDS: HYDROCODONE/APAP 7.5/325 MG TAB PO PRN (17:28)
[2022-01-29] MEDS: HEPARIN 5000 UNIT/ML 1 ML VIAL SQ SCH ×3 (00:38→16:25)
[2022-01-29] MEDS: HYDROCODONE/APAP 7.5/325 MG TAB PO PRN ×3 (00:43→23:25)
[2022-01-29] MEDS: D5 0.9 NS 1,000 ML IV SCH ×3 (03:59→12:14)
[2022-01-29 05:25] LABS: MPV 6.9 fL (7.6-11.3); RBC Red Blood Cell Count 4.13 M/uL (4.33-5.43)
[2022-01-29 05:39] LABS: Potassium 3.9 mmol/L (3.5-5.1)
[2022-01-29] MEDS: PIPER TAZO 3.375 GM in NA CHLORIDE 0.9% 100 ML IV SCH ×3 (06:01→22:13)
--- NOTE | 2022-01-29 07:56 | RAD REPORT ---
EXAM DESCRIPTION: RAD - Abdomen 1 View (KUB) - 01/29/2022 5:29 am CLINICAL HISTORY: Abdomen pain FINDINGS: Several mildly dilated loops of small bowel mildly diminished in caliber. Air is present w ithin portions of the colon. This is improvement in the partial small bowel obstruction
[2022-01-29] MEDS ORDERED: POTASSIUM CL SA 10 MEQ TAB PO ONE (09:00)
[2022-01-29] MEDS ORDERED: MINERAL OIL 30 ML UCUP PO ONE (14:35)
--- NOTE | 2022-01-29 14:35 | P.PN ---
Date of Service: 01/29/22 S: This patient, who is known to me, was on Dr. Doty service. Dr. Doty was out of town and asked me to cover for him which is not a problem at all. Patient feels better today, his pain is starting to resolve. He has been tolerating full liquid diet, and it is being advanced slowly. O: Patient looks well today, abdomen is soft nontender no masses are palpable. Does have his reducible hernia. Also has a diathesis of the rectus muscle. A: Partial small bowel obstruction appears to be resolving. P: Patient's abdominal distention and pain is resolving. His advance his diet. I will order some mineral oil for him today. I imagine once he starts having regular bowel movements and is comfortable he could be discharged. He will follow-up with me in my office. At that point we will work-up his umbilical hernia, and discussed with him his surgical options. He is quite happy with this plan.
[2022-01-29] MEDS: ONDANSETRON 4 MG/2 ML VIAL IV PRN (18:01)
--- NOTE | 2022-01-29 18:02 | P.PN ---
Date of Service: 01/29/22 Subjective: improving small BM today tolerating CLD ROS: 10 point ROS as noted above, otherwise negative Physical exam GEN: Alert, oriented, NAD HEENT: Normal conjunctiva, sclera anicteric CV: Regular rate and rhythm, no edema Pulm: Non-labored respirations on room air ABD: soft, minimal tenderness Integumentary: No rashes Neuro: Normal speech, normal affect Problem List Small bowel obstruction Umbilical hernia History of DVT History of PE improving, No further nausea/vomiting Continue medical management, clear liquids, advance today KUB with partial SBO, improving Continue empiric IV Zosyn General surgery consulted VTE: lovenox Code: full Dispo: home, likely tomorrow Time Spent Managing Pts Care (In Minutes): 35
[2022-01-30] MEDS: HEPARIN 5000 UNIT/ML 1 ML VIAL SQ SCH ×2 (00:47→09:15)
[2022-01-30] MEDS: D5 0.9 NS 1,000 ML IV SCH (01:44)
[2022-01-30 05:06] LABS: Potassium 3.9 mmol/L (3.5-5.1)
[2022-01-30] MEDS: PIPER TAZO 3.375 GM in NA CHLORIDE 0.9% 100 ML IV SCH (05:51)
[2022-01-30] MEDS ORDERED: POTASSIUM CL SA 10 MEQ TAB PO ONE (09:00)
[2022-01-30] MEDS: HYDROCODONE/APAP 7.5/325 MG TAB PO PRN (09:25)
[2022-01-30 09:41] VITALS: O2SAT 96
[2022-01-30 13:51] VITALS: TEMP 97.8
--- NOTE | 2022-01-30 16:19 | P.PN ---
Date of Service: 01/30/22 S: Patient doing well today, pain is resolved. Tolerating a diet. Has had 2 bowel movements. O: Vital signs are stable, abdomen is soft nontender. A: Partial small bowel obstruction appears to have resolved P: Patient is doing well, and is anxious to go home. He has been instructed on a soft mechanical diet, mineral oil at home. He will see me next week in my office. At that point we will discuss again having his umbilical hernia repaired, at that time we may be able to visualize the right lower quadrant where I suspect he had some adhesions. He understands this and is happy with this course of action. DC home.
[2022-01-30 17:27] VITALS: BP 140/79
--- NOTE | 2022-01-30 18:30 | P.DS ---
Admission Date: 01/25/22 Discharge Date: 01/30/22 Disposition: ROUTINE DISCHARGE Discharge Condition: GOOD Reason for Admission: Abdominal pain Consultations: General Surgery - Dr. Doty, Dr. Guan Brief History of Present Illness: 51yo M, PMH: chronic back pain, umbilical hernia. Presented to ED with complaint of sudden onset of abdominal pain, with 10/10 intensity, intermittent, and colicky, associated with nausea/vomiting. CT abd/pelvis revealed small bowel obstruction with transition point. Multiple NGT attempts were unsuccessful in the ED. Hospital Course: Problem List Small bowel obstruction Umbilical hernia History of DVT History of PE Patient was diagnosed with small bowel obstruction. Medically managed with bowel rest, IV hydration, and empiric antibiotics as a precaution. He had gradual improvement. His diet was advanced to soft foods, which he tolerated well, and continued to pass gas and had 2 BMs. General surgery evaluated the patient as well. He was deemed stable for discharge home. Counselled on soft diet and slow advancement. Follow up with Dr. Guan on . No new prescriptions. Ok to resume medications as previously prescribed. Vital Signs/Physical Exam: Temp Pulse Resp BP Pulse Ox 97.8 F 71 16 140/79 99 01/30/22 16:00 01/30/22 16:00 01/30/22 16:00 01/30/22 16:00 01/30/22 16:00 Physical exam GEN: Alert, oriented, NAD HEENT: Normal conjunctiva, sclera anicteric CV: Regular rate and rhythm, no edema Pulm: Non-labored respirations on room air ABD: soft, nontender, nondistended Integumentary: No rashes Neuro: Normal speech, normal affect Laboratory Data at Discharge: WBC 5.3 K/uL (4.3-10.9) D 01/29/22 04:52 Hgb 13.4 g/dL (13.6-17.9) L 01/29/22 04:52 Hct 39.0 % (39.6-49.0) L 01/29/22 04:52 Plt Count 228 K/uL (152-406) 01/29/22 04:52 Sodium 139 mmol/L (136-145) 01/30/22 04:02 Potassium 3.9 mmol/L (3.5-5.1) 01/30/22 04:02 BUN 3 mg/dL (7-18) L 01/30/22 04:02 Creatinine 0.86 mg/dL (0.55-1.3) 01/30/22 04:02 Glucose 105 mg/dL (74-106) 01/30/22 04:02 Phosphorus 2.7 mg/dL (2.5-4.9) 01/26/22 03:13 Magnesium 2.1 mg/dL (1.8-2.4) 01/28/22 04:25 Total Bilirubin 1.1 mg/dL (0.2-1.0) H 01/28/22 04:25 AST 27 U/L (15-37) 01/28/22 04:25 ALT 54 U/L (12-78) 01/28/22 04:25 Alkaline Phosphatase 66 U/L (45-117) 01/28/22 04:25 Lipase 63 U/L (73-393) L 01/25/22 11:25 Home Medications: Apixaban [Eliquis] 5 mg PO DAILY 01/25/22 Atorvastatin Calcium 20 mg PO DAILY 01/25/22 Hydrocodone Bit/Acetaminophen [[place] 7.5-325 Tablet] 1 tab PO BID 01/25/22 Lisinopril [Zestril] 1 tab PO DAILY 01/25/22 Omeprazole [Prilosec] 40 mg PO DAILY 01/25/22 Diet: soft Followup: Rocky Guan MD [ACTIVE - CAN ADMIT] - 02/04/22 (call to schedule appointment time) NONE,NONE [Primary Care Provider] - Time spent managing pt's care (in minutes): 45
== END 2022-01-30 17:00 | disposition home or self-care (01) | DRG 390 ==
LOC: ER 10:59 → ERHOLD 14:07 → 4TH 20:58
PROVIDERS: ADMIT Internal Medicine; ATTEND Internal Medicine
DX: K56.609 Unspecified intestinal obstruction, unspecified as to partial versus complete obstruction (principal); F41.9 Anxiety disorder, unspecified; K21.9 Gastro-esophageal reflux disease without esophagitis; I10 Essential (primary) hypertension; K42.9 Umbilical hernia without obstruction or gangrene; Z86.711 Personal history of pulmonary embolism; Z86.718 Personal history of other venous thrombosis and embolism; Z20.822 Contact with and (suspected) exposure to COVID-19
CPT/HCPCS: 36415; 74018; 74177; 80048; 80053; 81003; 83605; 83690; 83735; 84100; 84145; 85025; 85027; 87040; 87205; 96361; 96365; 96367; 96375; 99285; J0744; J1170; J1644; J2405; J2543; J3490; J7030; J7042; Q9967; U0003

== ENCOUNTER 2022-12-22 07:34 | Emergency (ER) | payer OTHER ==
--- OUTSIDE RECORDS SUMMARY | 2022-12-22 07:40 | XMS REPORT | Continuity of Care Document ---
:[address] [facility] t Address [address] [place] [address] [place] [id number] Care Team Providers Name Role Phone DIANA JIMENEZ Primary Care Physician Unavailable Diana Jimenez Attending Clinician Unavailable ADRIANO ALEXANDER Attending Clinician Unavailable Adriano Alexander MD Attending Clinician FILOMENA DARBY Attending Clinician Unavailable Filomena Darby MD Attending Clinician Doctor Unassigned, [place] Attending Clinician Unavailable Harinder Krueger MD Attending Clinician HARINDER KRUEGER Attending Clinician Unavailable Payers Payer Name Policy Type Policy Number Effective Date Expiration Date Abbey mendoza [facility] 2 [id number] 2022 Common 00:00:00 [facility] [employer] [id number] 2019 Common (Medicaid) 00:00:00 [facility] Problems Condition Condition Condition Status Onset Resolution Last Treating Co mments Source Name Details Category Date Date Treatment Clinician Date Dyslipidem Dyslipidem Disease Active U nivers ia ia -18 ity of 00:00: [address] Essential Essential Disease Active Uni vers hypertensi hypertensi -06 it y of on on 00:00: [address] Chronic Chronic Disease Active Univers deep vein deep vein 04-27 [place]y [place] of (DVT[place] of 00 Medica l popliteal popliteal Bran ch vein vein Chronic Chronic Disease Active Univers pulmonary pulmonary 04-27 ity of embolism embolism 00:00: [place] [address] Medical Branch No known No known Disease Unive rs active active ity of problems problems [facility] [id number] Body mass Problem Com mon index Spirit [BMI] - [facility] 34.0-34.9, [facility] [id number] Other Problem Common obesity Spirit due to - [facility] excess [facility] [id number] History of Problem Co mmon pulmonary Spirit embolism - [facility] [id number] Peripheral Problem Com mon polyneurop Spirit athy [facility] [id number] HTN, goal Problem Comm on below Spirit 140/90 [facility] [id number] Generalize Problem Com mon d anxiety [facility] disorder [facility] [id number] Alcohol Problem Common abuse Spirit [facility] [id number] GERD Problem Common without Spirit esophagiti - [facility] [id number] Other Problem Common chronic Spirit pain [facility] [id number] Mixed Problem Common hyperlipid Spirit emia [facility] [id number] Depression Problem Co mmon with Spirit anxiety - [facility] Allergies, Adverse Reactions, Alerts Allergy Allergy Status Severity Reaction(s) Onset Inactive Treating Comm ents Source Name Type Date Date Clinician NO KNOWN Drug Active Univers ALLERGIE Class ity of [facility] Social History Social Habit Start Date Stop Date Quantity Comments Source History SDOH University o f Alcohol Std [place] [facility] Drinks Branch History SDOH University o f Alcohol Binge [facility] al [place] History of Common Spirit - Tobacco Use [facility] Sex Assigned At Common Sp valerie - [facility] Exposure to 2022-08-14 2022-08-24 Not sure University of SARS-CoV-2 00:00:00 14:49:00 [facility] (event) [place] Alcohol intake 2022-08-03 2022-08-03 Lifetime University of 00:00:00 00:00:00 non-drinker [facility] (finding) [place] Tobacco use and 2022-08-03 2022-08-03 Smokeless tobacco Un iversity of exposure 00:00:00 00:00:00 non-user [place] [facility] History SDOH 2021-12-21 2021-12-21 1 University o f Alcohol Frequency 00:00:00 00:00:00 [facility] edical Branch Alcohol Comment 2018-04-27 2018-04-27 3 glasses of Univers ity of 00:00:00 00:00:00 liquor /5 days a [facility] dical week Branch Smoking Status Start Date Stop Date Source Never smoked tobacco [facility] Medications Ordered Filled Start Stop Current Ordering Indication Dosage Frequency Signature Comments Components Source Medication Medication Date Date Medication? Clinician (SIG) Name Name apixaban 5 2021-08 Yes 5mg Take 5 mg Un gavin mg tablet 2-13 by mouth 2 ity of 14:20: (two) [place] times Medical daily. Branch thiamine 2021-08 Yes 100mg Take 100 Univ ers 100 mg 2-13 mg by ity of tablet 14:20: mouth [place] daily. Medical Branch foLIC acid 2021-08 Yes 1mg Take 1 mg Un gavin 1 mg tablet 2-13 by mouth ity of 14:20: daily. Medical Branch hydroCHLORO 2021-08 Yes 12.5mg Take 12.5 Univers thiazide 2-13 mg by ity of 12.5 mg 14:20: mouth [place] capsule daily. Medical Branch acetaminoph 2021-08 Yes Take by Uni vers en with 2-13 mouth ity of codeine 14:20: every 6 [place] (TYLENOL-CO 01 (six) Medical DEINE #3 hours as Branch ORAL) needed (Pain). apixaban 5 2021-08 Yes 5mg Take 5 mg Un gavin mg tablet 2-13 by mouth 2 ity of 14:20: (two) [place] 01 times Medical daily. Branch thiamine 2021-08 Yes 100mg Take 100 Univ ers 100 mg 2-13 mg by ity of tablet 14:20: mouth [place] 01 daily. Medical Branch foLIC acid 2021-08 Yes 1mg Take 1 mg Un gavin 1 mg tablet 2-13 by mouth ity of 14:20: daily. Medical Branch hydroCHLORO 2021-08 Yes 12.5mg Take 12.5 Univers thiazide 2-13 mg by ity of 12.5 mg 14:20: mouth [place] capsule 01 daily. Medical Branch acetaminoph 2021-08 Yes Take by Uni vers en with 2-13 mouth ity of codeine 14:20: every 6 [place] (TYLENOL-CO (six) Medical DEINE #3 hours as Branch ORAL) needed (Pain). apixaban 5 2021-08 Yes 5mg Take 5 mg Un gavin mg tablet 2-13 by mouth 2 ity of 14:20: (two) [place] times Medical daily. Branch thiamine 2021-08 Yes 100mg Take 100 Univ ers 100 mg 2-13 mg by ity of tablet 14:20: mouth [place] 01 daily. Medical Branch foLIC acid 2021-08 Yes 1mg Take 1 mg Un gavin 1 mg tablet 2-13 by mouth ity of 14:20: daily. Medical Branch hydroCHLORO 2021-08 Yes 12.5mg Take 12.5 Univers thiazide 2-13 mg by ity of 12.5 mg 14:20: mouth [place] capsule daily. Medical Branch acetaminoph 2021-08 Yes Take by Uni vers en with 2-13 mouth ity of codeine 14:20: every 6 [place] (TYLENOL-CO (six) Medical DEINE #3 hours as Branch ORAL) needed (Pain). apixaban 5 2021-08 Yes 5mg Take 5 mg Un gavin mg tablet 2-13 by mouth 2 ity of 14:20: (two) [place] times Medical daily. Branch thiamine 2021-08 Yes 100mg Take 100 Univ ers 100 mg 2-13 mg by ity of tablet 14:20: mouth [place] daily. Medical Branch foLIC acid 2021-08 Yes 1mg Take 1 mg Un gavin 1 mg tablet 2-13 by mouth ity of 14:20: daily. Medical Branch hydroCHLORO 2021-08 Yes 12.5mg Take 12.5 Univers thiazide 2-13 mg by ity of 12.5 mg 14:20: mouth [place] capsule 01 daily. Medical Branch acetaminoph 2021-08 Yes Take by Uni vers en with 2-13 mouth ity of codeine 14:20: every 6 [place] (TYLENOL-CO (six) Medical DEINE #3 hours as Branch ORAL) needed (Pain). pantoprazol 2021-08 Yes 40mg Take 40 mg Univers e 40 mg EC 1-29 by mouth ity o f tablet 00:00: in the [place] morning. Medical Branch pantoprazol 2021- Yes 40mg Take 40 mg Univers e 40 mg EC 1-29 by mouth ity o f tablet 00:00: in the [place] morning. Medical Branch pantoprazol 2021- Yes 40mg Take 40 mg Univers e 40 mg EC 1-29 by mouth ity o f tablet 00:00: in the [place] morning. Medical Branch pantoprazol 2021- Yes 40mg Take 40 mg Univers e 40 mg EC 1-29 by mouth ity o f tablet 00:00: in the [place] morning. Medical Branch hydrOXYzine 2021- Yes TAKE 1 Univ ers 25 mg 1-21 TABLET BY ity of tablet 00:00: MOUTH [place] EVERY 8 Medical HOURS Branch NEEDED FOR ANXIETY hydrOXYzine 2021-08 Yes TAKE 1 Univ ers 25 mg 1-21 TABLET BY ity of tablet 00:00: MOUTH [place] EVERY 8 Medical HOURS Branch NEEDED FOR ANXIETY hydrOXYzine 2021-08 Yes TAKE 1 Univ ers 25 mg 1-21 TABLET BY ity of tablet 00:00: MOUTH [place] 00 EVERY 8 Medical HOURS Branch NEEDED FOR ANXIETY hydrOXYzine 2021-08 Yes TAKE 1 Univ ers 25 mg 1-21 TABLET BY ity of tablet 00:00: MOUTH [place] 00 EVERY 8 Medical HOURS Branch NEEDED FOR ANXIETY methylPREDN 2021-0 Yes [id number] 84mg Take 21 Univers ISolone 5-27 tablets by ity of (MEDROL, 00:00: mouth [place] RITU,) 4 mg 00 SEE-INSTRU Med ical tablets CTIONS. Branch follow package directions methylPREDN 2022-0 Yes [id number] 84mg Take 21 Univers ISolone 5-27 tablets by ity of (MEDROL, 00:00: mouth [place] RITU,) 4 mg 00 SEE-INSTRU Med ical tablets CTIONS. Branch follow package directions methylPREDN 2022-0 Yes [id number] 84mg Take 21 Univers ISolone 5-27 tablets by ity of (MEDROL, 00:00: mouth [place] RITU,) 4 mg 00 SEE-INSTRU Med ical tablets CTIONS. Branch follow package directions methylPREDN 2-0 Yes [id number] 84mg Take 21 Univers ISolone 5-27 tablets by ity of (MEDROL, 00:00: mouth [place] RITU,) 4 mg 00 SEE-INSTRU Med ical tablets CTIONS. Branch follow package directions methylPREDN 2021-0 Yes [id number] 84mg Take 21 Univers ISolone 5-27 tablets by ity of (MEDROL, 00:00: mouth [place] RITU,) 4 mg 00 SEE-INSTRU Med ical tablets CTIONS. Branch follow package directions methylPREDN 2021-0 Yes [id number] 84mg Take 21 Univers ISolone 5-27 tablets by ity of (MEDROL, 00:00: mouth [place] RITU,) 4 mg 00 SEE-INSTRU Med ical tablets CTIONS. Branch follow package directions methylPREDN 2021-0 Yes [id number] 84mg Take 21 Univers ISolone 5-27 tablets by ity of (MEDROL, 00:00: mouth [place] RITU,) 4 mg 00 SEE-INSTRU Med ical tablets CTIONS. Branch follow package directions colchicine 2021-0 2022- No [id number] .6mg Take 0.6 Univers 0.6 mg Cap 5-27 06-07 mg by ity of 00:00: 04:59 mouth 2 [place] 00 :00 (two) Medical times [place] daily for 10 days. colchicine 2021-0 2021- No [id number] .6mg Take 0.6 Univers 0.6 mg Cap 5-27 06-07 mg by ity of 00:00: 04:59 mouth 2 [place] 00 :00 ([facility]) Medical times [place] daily for 10 days. lisinopriL 0 Yes 40mg Take 40 mg U nivers 40 mg 3-21 by mouth ity of tablet 00:00: daily. [address] atorvastati 0 Yes 20mg Take 20 mg Univers n 20 mg 3-21 by mouth ity of tablet 00:00: daily. [address] ELIQUIS 5 0 Yes 5mg Take 5 mg Uni vers mg tablet 3-21 by mouth ity of 00:00: daily. [address] lisinopriL 0 Yes 40mg Take 40 mg U nivers 40 mg 3-21 by mouth ity of tablet 00:00: daily. [address] atorvastati 0 Yes 20mg Take 20 mg Univers n 20 mg 3-21 by mouth ity of tablet 00:00: daily. [address] ELIQUIS 5 0 Yes 5mg Take 5 mg Uni vers mg tablet 3-21 by mouth ity of 00:00: daily. [facility] Branch lisinopriL 0 Yes 40mg Take 40 mg U nivers 40 mg 3-21 by mouth ity of tablet 00:00: daily. [place] [facility] Branch atorvastati 0 Yes 20mg Take 20 mg Univers n 20 mg 3-21 by mouth ity of tablet 00:00: daily. [facility] Branch ELIQUIS 5 0 Yes 5mg Take 5 mg Uni vers mg tablet 3-21 by mouth ity of 00:00: daily. [place] [facility] Branch lisinopriL 0 Yes 40mg Take 40 mg U nivers 40 mg 3-21 by mouth ity of tablet 00:00: daily. [place] [facility] Branch atorvastati 0 Yes 20mg Take 20 mg Univers n 20 mg 3-21 by mouth ity of tablet 00:00: daily. [place] [facility] ELIQUIS 5 0 Yes 5mg Take 5 mg Uni vers mg tablet 3-21 by mouth ity of 00:00: daily. [place] [facility] Branch lisinopriL 0 Yes 40mg Take 40 mg U nivers 40 mg 3-21 by mouth ity of tablet 00:00: daily. [place] [facility] atorvastati 0 Yes 20mg Take 20 mg Univers n 20 mg 3-21 by mouth ity of tablet 00:00: daily. [place] [facility] ELIQUIS 5 0 Yes 5mg Take 5 mg Uni vers mg tablet 3-21 by mouth ity of 00:00: daily. [facility] Branch lisinopriL 0 Yes 40mg Take 40 mg U nivers 40 mg 3-21 by mouth ity of tablet 00:00: daily. [place] [facility] atorvastati 0 Yes 20mg Take 20 mg Univers n 20 mg 3-21 by mouth ity of tablet 00:00: daily. [place] [facility] ELIQUIS 5 0 Yes 5mg Take 5 mg Uni vers mg tablet 3-21 by mouth ity of 00:00: daily. [place] [facility] lisinopriL 2021-0 Yes 40mg Take 40 mg U nivers 40 mg 3-21 by mouth ity of tablet 00:00: daily. [place] [facility] atorvastati 0 Yes 20mg Take 20 mg Univers n 20 mg 3-21 by mouth ity of tablet 00:00: daily. [place] [facility] Branch ELIQUIS 5 0 Yes 5mg Take 5 mg Uni vers mg tablet 3-21 by mouth ity of 00:00: daily. [place] [facility] lisinopriL 0 Yes 40mg Take 40 mg U nivers 40 mg 3-21 by mouth ity of tablet 00:00: daily. [place] [facility] atorvastati 0 Yes 20mg Take 20 mg Univers n 20 mg 3-21 by mouth ity of tablet 00:00: daily. [place] [facility] ELIQUIS 5 0 Yes 5mg Take 5 mg Uni vers mg tablet 3-21 by mouth ity of 00:00: daily. [place] [facility] lisinopriL 0 Yes 40mg Take 40 mg U nivers 40 mg 3-21 by mouth ity of tablet 00:00: daily. [place] [facility] atorvastati 0 Yes 20mg Take 20 mg Univers n 20 mg 3-21 by mouth ity of tablet 00:00: daily. [place] [facility] ELIQUIS 5 0 Yes 5mg Take 5 mg Uni vers mg tablet 3-21 by mouth ity of 00:00: daily. [address] HydrOXYzine HydrOXYzine 2020-0 Yes Diana 1 tablet Common HCl HCl 8-04 Jimenez as needed Spirit 00:00: - [facility] Diphenhydra Diphenhydra 2020-0 No 25mg Common mine mine 1-07 Spirit 00:00: - [facility] Diphenhydra Diphenhydra 2020-0 No 25mg Common mine mine 1 Spirit 00:00: - [facility] Diphenhydra Diphenhydra 2020-0 No 25mg Common mine mine 1- Spirit 00:00: - [facility] 00 [facility] Diphenhydra Diphenhydra 2020-0 No 25mg Common mine mine 1 Spirit 00:00: - [facility]I 00 [facility] Diphenhydra Diphenhydra 2020-0 No 25mg Common mine mine 1- Spirit 00:00: - [facility] 00 [facility] Diphenhydra Diphenhydra 2020-0 No 25mg Common mine mine 1- Spirit 00:00: - [facility] 00 [facility] Diphenhydra Diphenhydra 2020-0 No 25mg Common mine mine 08-28 Spirit 00:00: - [facility]I 00 [facility] Diphenhydra Diphenhydra 2020-0 No 25mg Common mine mine 08-28 Spirit 00:00: - [facility]I 00 [facility] Diphenhydra Diphenhydra 2020-0 No 25mg Common mine mine 08-28 Spirit 00:00: - [facility]I 00 [facility] Diphenhydra Diphenhydra 2020-0 No 25mg Common mine mine 08-28 Spirit 00:00: - [facility]I 00 [facility] Diphenhydra Diphenhydra 2020-0 No 25mg Common mine mine 08-28 Spirit 00:00: - [facility]I 00 [facility] Diphenhydra Diphenhydra 2020-0 No 25mg Common mine mine 08-28 Spirit 00:00: - [facility]I 00 [facility] Diphenhydra Diphenhydra 2020-0 No 25mg Common mine mine 08-28 Spirit 00:00: - [facility] 00 [facility] Diphenhydra Diphenhydra 2020-0 No 25mg Common mine mine 08-28 Spirit 00:00: - [facility] 00 [facility] acetaminoph 2017-08 Yes 1{tbl} Take [...] Medical Branch acetaminoph 2017-08 Yes Take by Uni vers en with 1-26 mouth ity of codeine [...] 1-26 by mouth ity of 15:32: daily. [place] 49 Medical Branch hydroCHLORO 2017-08 Yes 12.5mg Take 12.5 Univers thiazide 1-26 mg by ity of 12.5 mg 15:32: mouth [place] capsule 49 daily. Medical Branch acetaminoph 2017-08 Yes Take by Uni vers en with 1-26 mouth ity of codeine [...] 1-26 by mouth ity of 15:32: daily. [place] [address] Medical Branch hydroCHLORO 2017-08 Yes 12.5mg Take 12.5 Univers thiazide 1-26 mg by ity of 12.5 mg 15:32: mouth [place] capsule 49 daily. Medical Branch acetaminoph 2017-08 Yes Take by Uni vers en with 1-26 mouth ity of codeine [...] 1-26 by mouth ity of 15:32: daily. [place] [address] Medical Branch hydroCHLORO 2017-08 Yes 12.5mg Take 12.5 Univers thiazide 1-26 mg by ity of 12.5 mg 15:32: mouth [place] capsule 49 daily. Medical Branch acetaminoph 2017-08 Yes Take by Uni vers en with 1-26 mouth ity of codeine [...] 1-26 by mouth ity of 15:32: daily. [place] [address] Medical Branch hydroCHLORO 2017-08 Yes 12.5mg Take 12.5 Univers thiazide 1-26 mg by ity of 12.5 mg 15:32: mouth [place] capsule 49 daily. Medical Branch apixaban 2018-0 Yes 5mg Take 5 [...] Diana 1 tablet Common Jimenez Spirit - [facility] Atorvastati Atorvastati Yes Diana 1 tablet Common n Calcium n Calcium Jimenez Spir it - [facility] Omeprazole Omeprazole Yes Diana 1 capsule Common Jimenez 30 minutes Spirit before - CHI morning [facility] [place] Hay[place] Yes Diana 1 tablet Common Jimenez as needed Spirit - [facility] Eliquis Eliquis Yes Diana TAKE 1 Commo n Jimenez TABLET BY Spirit MOUTH - CHI EVERY DAY [facility] Lisinopril Lisinopril Yes Diana 1 tablet Common Jimenez Spirit - [facility] Cyclobenzap Cyclobenzap Yes Diana 1 tablet Common rine HCl rine HCl Jimenez as needed S pirit - [facility] Lisinopril Lisinopril Yes Diana TAKE 1 Common Jimenez TABLET BY Spirit MOUTH ONCE - [facility]I DAILY [facility] Eliquis 5 Eliquis 5 No 1{table QD Eliquis 5 MG MG t} MG Omeprazole Omeprazole No QD Omeprazole 40 MG 40 MG 40 MG [place] No 1{table [place] 7.5-325 MG 7.5-325 MG t_as_ne 7.5-325 MG eded} Cyclobenzap Cyclobenzap No 1{table QD Cyclobenza rine HCl 5 rine HCl 5 t_at_be afua HCl MG MG dtime_a 5 MG s_neede d} Eliquis 5 Eliquis 5 No Eliquis 5 MG MG MG Lisinopril Lisinopril No 1{table QD Lisinopril 40 MG 40 MG t} 40 MG Lisinopril Lisinopril No 1{table QD Lisinopril 40 MG 40 MG t} 40 MG Gabapentin Gabapentin No 1{table TID Gabapentin 800 MG 800 MG t} 800 MG Atorvastati Atorvastati No 1{table QD Atorvastat n Calcium n Calcium t} in Calcium 20 MG 20 MG 20 MG hydrOXYzine hydrOXYzine No hydrOXYzin HCl 25 MG HCl 25 MG e HCl 25 MG Eliquis 5 Eliquis 5 No Eliquis 5 MG MG MG Lisinopril Lisinopril No Lisinopril 40 MG 40 MG 40 MG [place] No 1{table [place] 7.5-325 MG 7.5-325 MG t_as_ne 7.5-325 MG eded} Cyclobenzap Cyclobenzap No 1{table QD Cyclobenza rine HCl 5 rine HCl 5 t_at_be afua HCl MG MG dtime_a 5 MG s_neede d} Omeprazole Omeprazole No QD Omeprazole 40 MG 40 MG 40 MG hydrOXYzine hydrOXYzine No 1{table hydrOXYzin HCl 25 MG HCl 25 MG t_as_ne e HCl 25 eded} MG Gabapentin Gabapentin No 1{table TID Gabapentin 800 MG 800 MG t} 800 MG Atorvastati Atorvastati No Atorvastat n Calcium n Calcium in Calcium 20 MG 20 MG 20 MG hydrOXYzine hydrOXYzine No hydrOXYzin HCl 25 MG HCl 25 MG e HCl 25 MG Eliquis 5 Eliquis 5 No 1{table QD Eliquis 5 MG MG t} MG [place] No 1{table [place] 7.5-325 MG 7.5-325 MG t_as_ne 7.5-325 MG eded} Cyclobenzap Cyclobenzap No 1{table QD Cyclobenza rine HCl 5 rine HCl 5 t_at_be afua HCl MG MG dtime_a 5 MG s_neede d} Atorvastati Atorvastati No Atorvastat n Calcium n Calcium in Calcium 20 MG 20 MG 20 MG Lisinopril Lisinopril No 1{table QD Lisinopril 40 MG 40 MG t} 40 MG hydrOXYzine hydrOXYzine No hydrOXYzin HCl 25 MG HCl 25 MG e HCl 25 MG Gabapentin Gabapentin No 1{table TID Gabapentin 800 MG 800 MG t} 800 MG Omeprazole Omeprazole No QD Omeprazole 40 MG 40 MG 40 MG Eliquis 5 Eliquis 5 No Eliquis 5 MG MG MG Lisinopril Lisinopril No Lisinopril 40 MG 40 MG 40 MG Atorvastati Atorvastati No 1{table QD Atorvastat n Calcium n Calcium t} in Calcium 20 MG 20 MG 20 MG hydrOXYzine hydrOXYzine No 1{table hydrOXYzin HCl 25 MG HCl 25 MG t_as_ne e HCl 25 eded} MG hydrOXYzine hydrOXYzine No hydrOXYzin HCl 25 MG HCl 25 MG e HCl 25 MG Atorvastati Atorvastati No Atorvastat n Calcium n Calcium in Calcium 20 MG 20 MG 20 MG Eliquis 5 Eliquis 5 No Eliquis 5 MG MG MG Cyclobenzap Cyclobenzap No 1{table QD Cyclobenza rine HCl 5 rine HCl 5 t_at_be afua HCl MG MG dtime_a 5 MG s_neede d} Lisinopril Lisinopril No 1{table QD Lisinopril 40 MG 40 MG t} 40 MG Atorvastati Atorvastati No 1{table QD Atorvastat n Calcium n Calcium t} in Calcium 20 MG 20 MG 20 MG [place] No 1{table [place] 7.5-325 MG 7.5-325 MG t_as_ne 7.5-325 MG eded} Eliquis 5 Eliquis 5 No 1{table QD Eliquis 5 MG MG t} MG Lisinopril Lisinopril No Lisinopril 40 MG 40 MG 40 MG Omeprazole Omeprazole No QD Omeprazole 40 MG 40 MG 40 MG Gabapentin Gabapentin No 1{table TID Gabapentin 800 MG 800 MG t} 800 MG hydrOXYzine hydrOXYzine No hydrOXYzin HCl 25 MG HCl 25 MG e HCl 25 MG Atorvastati Atorvastati No Atorvastat n Calcium n Calcium in Calcium 20 MG 20 MG 20 MG Eliquis 5 Eliquis 5 No Eliquis 5 MG MG MG Cyclobenzap Cyclobenzap No 1{table QD Cyclobenza rine HCl 5 rine HCl 5 t_at_be afua HCl MG MG dtime_a 5 MG s_neede d} Lisinopril Lisinopril No 1{table QD Lisinopril 40 MG 40 MG t} 40 MG Atorvastati Atorvastati No 1{table QD Atorvastat n Calcium n Calcium t} in Calcium 20 MG 20 MG 20 MG [place] No 1{table [place] 7.5-325 MG 7.5-325 MG t_as_ne 7.5-325 MG eded} Eliquis 5 Eliquis 5 No 1{table QD Eliquis 5 MG MG t} MG Lisinopril Lisinopril No Lisinopril 40 MG 40 MG 40 MG Omeprazole Omeprazole No QD Omeprazole 40 MG 40 MG 40 MG Gabapentin Gabapentin No 1{table TID Gabapentin 800 MG 800 MG t} 800 MG Eliquis 5 Eliquis 5 No 1{table QD Eliquis 5 MG MG t} MG Cyclobenzap Cyclobenzap No 1{table QD Cyclobenza rine HCl 5 rine HCl 5 t_at_be afua HCl MG MG dtime_a 5 MG s_neede d} Gabapentin Gabapentin No 1{table TID Gabapentin 800 MG 800 MG t} 800 MG Atorvastati Atorvastati No 1{table QD Atorvastat n Calcium n Calcium t} in Calcium 20 MG 20 MG 20 MG hydrOXYzine hydrOXYzine No 1{table hydrOXYzin HCl 25 MG HCl 25 MG t_as_ne e HCl 25 eded} MG hydrOXYzine hydrOXYzine No hydrOXYzin HCl 25 MG HCl 25 MG e HCl 25 MG Omeprazole Omeprazole No QD Omeprazole 40 MG 40 MG 40 MG Lisinopril Lisinopril No 1{table QD Lisinopril 40 MG 40 MG t} 40 MG [place] No 1{table [place] 7.5-325 MG 7.5-325 MG t_as_ne 7.5-325 MG eded} Eliquis 5 Eliquis 5 No 1{table QD Eliquis 5 MG MG t} MG Cyclobenzap Cyclobenzap No 1{table QD Cyclobenza rine HCl 5 rine HCl 5 t_at_be afua HCl MG MG dtime_a 5 MG s_neede d} Gabapentin Gabapentin No 1{table TID Gabapentin 800 MG 800 MG t} 800 MG Atorvastati Atorvastati No 1{table QD Atorvastat n Calcium n Calcium t} in Calcium 20 MG 20 MG 20 MG hydrOXYzine hydrOXYzine No 1{table hydrOXYzin HCl 25 MG HCl 25 MG t_as_ne e HCl 25 eded} MG hydrOXYzine hydrOXYzine No hydrOXYzin HCl 25 MG HCl 25 MG e HCl 25 MG Omeprazole Omeprazole No QD Omeprazole 40 MG 40 MG 40 MG Lisinopril Lisinopril No 1{table QD Lisinopril 40 MG 40 MG t} 40 MG [place] No 1{table [place] 7.5-325 MG 7.5-325 MG t_as_ne 7.5-325 MG eded} Eliquis 5 Eliquis 5 No 1{table QD Eliquis 5 MG MG t} MG Cyclobenzap Cyclobenzap No 1{table QD Cyclobenza rine HCl 5 rine HCl 5 t_at_be afua HCl MG MG dtime_a 5 MG s_neede d} Gabapentin Gabapentin No 1{table TID Gabapentin 800 MG 800 MG t} 800 MG Atorvastati Atorvastati No 1{table QD Atorvastat n Calcium n Calcium t} in Calcium 20 MG 20 MG 20 MG hydrOXYzine hydrOXYzine No 1{table hydrOXYzin HCl 25 MG HCl 25 MG t_as_ne e HCl 25 eded} MG hydrOXYzine hydrOXYzine No hydrOXYzin HCl 25 MG HCl 25 MG e HCl 25 MG Omeprazole Omeprazole No QD Omeprazole 40 MG 40 MG 40 MG Lisinopril Lisinopril No 1{table QD Lisinopril 40 MG 40 MG t} 40 MG [place] No 1{table [place] 7.5-325 MG 7.5-325 MG t_as_ne 7.5-325 MG eded} hydrOXYzine hydrOXYzine No hydrOXYzin HCl 25 MG HCl 25 MG e HCl 25 MG Benzonatate Benzonatate No 1{capsu Benzonatat 200 MG 200 MG le_as_n e 200 MG eeded} Lisinopril Lisinopril No 1{table QD Lisinopril 40 MG 40 MG t} 40 MG Atorvastati Atorvastati No 1{table QD Atorvastat n Calcium n Calcium t} in Calcium 20 MG 20 MG 20 MG hydrOXYzine hydrOXYzine No 1{table hydrOXYzin HCl 25 MG HCl 25 MG t_as_ne e HCl 25 eded} MG Cyclobenzap Cyclobenzap No 1{table QD Cyclobenza rine HCl 5 rine HCl 5 t_at_be afua HCl MG MG dtime_a 5 MG s_neede d} Gabapentin Gabapentin No 1{table TID Gabapentin 800 MG 800 MG t} 800 MG Hayward Hayward No 1{table Hayward 7.5-325 MG 7.5-325 MG t_as_ne 7.5-325 MG eded} Eliquis 5 Eliquis 5 No 1{table QD Eliquis 5 MG MG t} MG Omeprazole Omeprazole No QD Omeprazole 40 MG 40 MG 40 MG Azithromyci Azithromyci No QD Azithromyc n 250 MG n 250 MG in 250 MG methylPREDN methylPREDN No QD methylPRED ISolone 4 ISolone 4 NISolone 4 MG MG MG hydrOXYzine hydrOXYzine No hydrOXYzin HCl 25 MG HCl 25 MG e HCl 25 MG Benzonatate Benzonatate No 1{capsu Benzonatat 200 MG 200 MG le_as_n e 200 MG eeded} Lisinopril Lisinopril No 1{table QD Lisinopril 40 MG 40 MG t} 40 MG Atorvastati Atorvastati No 1{table QD Atorvastat n Calcium n Calcium t} in Calcium 20 MG 20 MG 20 MG hydrOXYzine hydrOXYzine No 1{table hydrOXYzin HCl 25 MG HCl 25 MG t_as_ne e HCl 25 eded} MG Cyclobenzap Cyclobenzap No 1{table QD Cyclobenza rine HCl 5 rine HCl 5 t_at_be afua HCl MG MG dtime_a 5 MG s_neede d} Gabapentin Gabapentin No 1{table TID Gabapentin 800 MG 800 MG t} 800 MG Hayward Hayward No 1{table Hayward 7.5-325 MG 7.5-325 MG t_as_ne 7.5-325 MG eded} Eliquis 5 Eliquis 5 No 1{table QD Eliquis 5 MG MG t} MG Omeprazole Omeprazole No QD Omeprazole 40 MG 40 MG 40 MG Azithromyci Azithromyci No QD Azithromyc n 250 MG n 250 MG in 250 MG methylPREDN methylPREDN No QD methylPRED ISolone 4 ISolone 4 NISolone 4 MG MG MG hydrOXYzine hydrOXYzine No hydrOXYzin HCl 25 MG HCl 25 MG e HCl 25 MG Benzonatate Benzonatate No 1{capsu Benzonatat 200 MG 200 MG le_as_n e 200 MG eeded} Lisinopril Lisinopril No 1{table QD Lisinopril 40 MG 40 MG t} 40 MG Atorvastati Atorvastati No 1{table QD Atorvastat n Calcium n Calcium t} in Calcium 20 MG 20 MG 20 MG hydrOXYzine hydrOXYzine No 1{table hydrOXYzin HCl 25 MG HCl 25 MG t_as_ne e HCl 25 eded} MG Cyclobenzap Cyclobenzap No 1{table QD Cyclobenza rine HCl 5 rine HCl 5 t_at_be afua HCl MG MG dtime_a 5 MG s_neede d} Gabapentin Gabapentin No 1{table TID Gabapentin 800 MG 800 MG t} 800 MG Hayward Hayward No 1{table Hayward 7.5-325 MG 7.5-325 MG t_as_ne 7.5-325 MG eded} Eliquis 5 Eliquis 5 No 1{table QD Eliquis 5 MG MG t} MG Omeprazole Omeprazole No QD Omeprazole 40 MG 40 MG 40 MG Azithromyci Azithromyci No QD Azithromyc n 250 MG n 250 MG in 250 MG methylPREDN methylPREDN No QD methylPRED ISolone 4 ISolone 4 NISolone 4 MG MG MG Atorvastati Atorvastati No 1{table QD Atorvastat n Calcium n Calcium t} in Calcium 20 MG 20 MG 20 MG Benzonatate Benzonatate No 1{capsu Benzonatat 200 MG 200 MG le_as_n e 200 MG eeded} Cyclobenzap Cyclobenzap No 1{table QD Cyclobenza rine HCl 5 rine HCl 5 t_at_be afua HCl MG MG dtime_a 5 MG s_neede d} Hayward Hayward No 1{table Hayward 7.5-325 MG 7.5-325 MG t_as_ne 7.5-325 MG eded} hydrOXYzine hydrOXYzine No hydrOXYzin HCl 25 MG HCl 25 MG e HCl 25 MG Omeprazole Omeprazole No QD Omeprazole 40 MG 40 MG 40 MG methylPREDN methylPREDN No QD methylPRED ISolone 4 ISolone 4 NISolone 4 MG MG MG Lisinopril Lisinopril No 1{table QD Lisinopril 40 MG 40 MG t} 40 MG hydrOXYzine hydrOXYzine No 1{table hydrOXYzin HCl 25 MG HCl 25 MG t_as_ne e HCl 25 eded} MG Gabapentin Gabapentin No 1{table TID Gabapentin 800 MG 800 MG t} 800 MG Eliquis 5 Eliquis 5 No 1{table QD Eliquis 5 MG MG t} MG Azithromyci Azithromyci No QD Azithromyc n 250 MG n 250 MG in 250 MG hydrOXYzine hydrOXYzine No hydrOXYzin HCl 25 MG HCl 25 MG e HCl 25 MG methylPREDN methylPREDN No QD methylPRED ISolone 4 ISolone 4 NISolone 4 MG MG MG Hayward Hayward No 1{table Hayward 7.5-325 MG 7.5-325 MG t_as_ne 7.5-325 MG eded} Gabapentin Gabapentin No 1{table TID Gabapentin 800 MG 800 MG t} 800 MG Omeprazole Omeprazole No QD Omeprazole 40 MG 40 MG 40 MG Atorvastati Atorvastati No 1{table QD Atorvastat n Calcium n Calcium t} in Calcium 20 MG 20 MG 20 MG hydrOXYzine hydrOXYzine No 1{table hydrOXYzin HCl 25 MG HCl 25 MG t_as_ne e HCl 25 eded} MG Lisinopril Lisinopril No 1{table QD Lisinopril 40 MG 40 MG t} 40 MG Cyclobenzap Cyclobenzap No 1{table QD Cyclobenza rine HCl 5 rine HCl 5 t_at_be afua HCl MG MG dtime_a 5 MG s_neede d} Azithromyci Azithromyci No QD Azithromyc n 250 MG n 250 MG in 250 MG Eliquis 5 Eliquis 5 No 1{table QD Eliquis 5 MG MG t} MG Benzonatate Benzonatate No 1{capsu Benzonatat 200 MG 200 MG le_as_n e 200 MG eeded} Lisinopril Lisinopril No 1{table QD Lisinopril 40 MG 40 MG t} 40 MG Gabapentin Gabapentin No 1{table TID Gabapentin 800 MG 800 MG t} 800 MG Cyclobenzap Cyclobenzap No 1{table QD Cyclobenza rine HCl 5 rine HCl 5 t_at_be afua HCl MG MG dtime_a 5 MG s_neede d} Hayward Hayward No 1{table Hayward 7.5-325 MG 7.5-325 MG t_as_ne 7.5-325 MG eded} Omeprazole Omeprazole No QD Omeprazole 40 MG 40 MG 40 MG Eliquis 5 Eliquis 5 No Eliquis 5 MG MG MG methylPREDN methylPREDN No QD methylPRED ISolone 4 ISolone 4 NISolone 4 MG MG MG hydrOXYzine hydrOXYzine No hydrOXYzin HCl 25 MG HCl 25 MG e HCl 25 MG Azithromyci Azithromyci No QD Azithromyc n 250 MG n 250 MG in 250 MG Atorvastati Atorvastati No 1{table QD Atorvastat n Calcium n Calcium t} in Calcium 20 MG 20 MG 20 MG Benzonatate Benzonatate No 1{capsu Benzonatat 200 MG 200 MG le_as_n e 200 MG eeded} Lisinopril Lisinopril No 1{table QD Lisinopril 40 MG 40 MG t} 40 MG Eliquis 5 Eliquis 5 No 1{table QD Eliquis 5 MG MG t} MG Atorvastati Atorvastati No Atorvastat n Calcium n Calcium in Calcium 20 MG 20 MG 20 MG Omeprazole Omeprazole No QD Omeprazole 40 MG 40 MG 40 MG Gabapentin Gabapentin No 1{table TID Gabapentin 800 MG 800 MG t} 800 MG hydrOXYzine hydrOXYzine No 1{table hydrOXYzin HCl 25 MG HCl 25 MG t_as_ne e HCl 25 eded} MG Eliquis 5 Eliquis 5 No Eliquis 5 MG MG MG Atorvastati Atorvastati No 1{table QD Atorvastat n Calcium n Calcium t} in Calcium 20 MG 20 MG 20 MG Hayward Hayward No 1{table Hayward 7.5-325 MG 7.5-325 MG t_as_ne 7.5-325 MG eded} Cyclobenzap Cyclobenzap No 1{table QD Cyclobenza rine HCl 5 rine HCl 5 t_at_be afua HCl MG MG dtime_a 5 MG s_neede d} Lisinopril Lisinopril No 1{table QD Lisinopril 40 MG 40 MG t} 40 MG hydrOXYzine hydrOXYzine No hydrOXYzin HCl 25 MG HCl 25 MG e HCl 25 MG hydrOXYzine hydrOXYzine No 1{table hydrOXYzin HCl 25 MG HCl 25 MG t_as_ne e HCl 25 eded} MG Atorvastati Atorvastati No Atorvastat n Calcium n Calcium in Calcium 20 MG 20 MG 20 MG Immunizations Ordered Immunization Filled Immunization Date Status Commen ts Source Name Name Ez Hui 2022-07-29 [facility] Ez Hui 2022-07-29 [facility] 15:22[facility]00 [facility] Flucelvax - single Flucelvax - single 2022-07-29 [facility]pleted [facility] dose syringe dose syringe 15:21:00 - [facility] Flucelvax - single Flucelvax - single 2022-07-29 Completed [facility] dose syringe dose syringe 15:21:00 [facility] Pneumovax (PPSV23) Pneumovax (PPSV23) 2021-03-30 [facility]pleted [facility] 14:37:00 [facility] Pneumovax (PPSV23) Pneumovax (PPSV23) 2021-03-30 [facility]pleted [facility] 14:37:00 [facility] Pneumovax (PPSV23) Pneumovax (PPSV23) 2021-03-30 [facility]pleted [facility] 14:37:00 [facility] Pneumovax (PPSV23) Pneumovax (PPSV23) 2021-03-30 [facility]pleted [facility] 14:37:00 [facility] Pneumovax (PPSV23) Pneumovax (PPSV23) 2021-03-30 [facility]pleted [facility] 14:37:00 [facility] Pneumovax (PPSV23) Pneumovax (PPSV23) 2021-03-30 [facility]pleted [facility] 14:37:00 [facility] Pneumovax (PPSV23) Pneumovax (PPSV23) 2021-03-30 [facility]pleted [facility] 14:37:00 [facility] Pneumovax (PPSV23) Pneumovax (PPSV23) 2021-03-30 [facility]pleted [facility] 14:37:00 [facility] Pneumovax (PPSV23) Pneumovax (PPSV23) 2021-03-30 [facility]pleted [facility] 14:37:00 [facility] Pneumovax (PPSV23) Pneumovax (PPSV23) 2021-03-30 [facility]pleted [facility] 14:37:00 [facility] Pneumovax (PPSV23) Pneumovax (PPSV23) 2021-03-30 [facility]pleted [facility] 14:37:00 [facility] Pneumovax (PPSV23) Pneumovax (PPSV23) 2021-03-30 [facility]pleted [facility] 14:37:00 [facility] Pneumovax (PPSV23) Pneumovax (PPSV23) 2021-03-30 [facility]pleted [facility] 14:37:00 [facility] Pneumovax (PPSV23) Pneumovax (PPSV23) 2021-03-30 [facility]pleted [facility] 14:37:00 [facility] Pneumovax (PPSV23) Pneumovax (PPSV23) 2021-03-30 [facility]pleted [facility] 14:37:00 [facility] Afluria single dose Afluria single dose 2020-06-12 Completed [facility] 15:26:00 [facility] Afluria single dose Afluria single dose 2020-06-12 Completed [facility] 15:26:00 [facility] Afluria single dose Afluria single dose 2020-06-12 Completed [facility] 15::00 [facility] Afluria single dose Afluria single dose 2020-06-12 Completed [facility] 15::00 [facility] Afluria single dose Afluria single dose 2020-06-12 Completed [facility] 15:26:00 [facility] Afluria single dose Afluria single dose 2020-06-12 Completed [facility] 15:26:00 [facility] Afluria single dose Afluria single dose 2020-06-12 Completed [facility] 15:26:00 [facility] Afluria single dose Afluria single dose 2020-06-12 Completed [facility] 15:26:00 [facility] Afluria single dose Afluria single dose 2020-06-12 Completed [facility] 15:26:00 [facility] Afluria single dose Afluria single dose 2020-06-12 Completed [facility] 15:26:00 [facility] Afluria single dose Afluria single dose 2020-06-12 Completed [facility] 15:26:00 [facility] Afluria single dose Afluria single dose 2020-06-12 [facility]pleted [facility] 15::00 [facility] Afluria single dose Afluria single dose 2020-06-12 [facility]pleted [facility] 15::00 [facility] Afluria single dose Afluria single dose 2020-06-12 Completed [facility] 15:: [facility] Afluria single dose Afluria single dose 2020-06-12 Completed [facility] 15:26:00 [facility] Afluria single dose Afluria single dose 2019-08-28 Completed [facility] 13:24:00 [facility] Afluria single dose Afluria single dose 2019-08-28 Completed [facility] 13:24:00 [facility] Afluria single dose Afluria single dose 2019-08-28 Completed [facility] 13:24:00 [facility] Afluria single dose Afluria single dose 2019-08-28 Completed [facility] 13:24:00 [facility] Afluria single dose Afluria single dose 2019-08-28 Completed [facility] 13:24:00 [facility] Afluria single dose Afluria single dose 2019-08-28 Completed [facility] 13:24:00 [facility] Afluria single dose Afluria single dose 2019-08-28 Completed [facility] 13:24:00 [facility] Afluria single dose Afluria single dose 2019-08-28 Completed [facility] 13:24:00 [facility] Afluria single dose Afluria single dose 2019-08-28 Completed [facility] 13:24:00 [facility] Afluria single dose Afluria single dose 2019-08-28 Completed [facility] 13:24:00 [facility] Afluria single dose Afluria single dose 2019-08-28 Completed [facility] 13:24:00 [facility] Afluria single dose Afluria single dose 2019-08-28 Completed [facility] 13:24:00 [facility] Afluria single dose Afluria single dose 2019-08-28 Completed [facility] 13:24:00 [facility] Afluria single dose Afluria single dose 2019-08-28 Completed [facility] 13:24:00 [facility] Afluria single dose Afluria single dose 2019-08-28 Completed [facility] 13:24:00 [facility] Vital Signs Vital Name Observation Time Observation Value Comments Source Systolic blood 2022-08-24 21:00:00 156 mm[Hg] Univer sity of pressure [facility] Diastolic blood 2022-08-24 21:00:00 97 mm[Hg] Unive rsity of pressure [facility] Heart rate 2022-08-24 20:57:00 83 /min [facility] Body temperature 2022-08-24 20:57:00 36.67 Evette [facility] Respiratory rate 2022-08-24 20:57:00 16 /min [facility] Body height 2022-08-24 20:57:00 170.2 cm [facility] [place] [facility] [place] Body weight 2022-08-24 20:57:00 104.781 kg [facility] BMI 2022-08-24 20:57:00 36.18 kg/m2 Universi ty of [facility] Oxygen saturation in 2022-08-24 20:57:00 96 /min University of Arterial blood by [facility] Pulse oximetry Branch Systolic blood 2022-08-03 20:16:00 155 mm[Hg] Univer sity of [facility] Diastolic blood 2022-08-03 20:16:00 96 mm[Hg] Unive rsity of [facility] Heart rate 2022-08-03 20:16:00 92 /min [facility] Body temperature 2022-08-03 20:15:00 37 Evette [facility] [place] [facility] Respiratory rate 2022-08-03 20:15:00 18 /min [facility] [place] [facility] [place] Body height 2022-08-03 20:15:00 170.2 cm [facility] [place] [facility] [place] Body weight 2022-08-03 20:15:00 101.696 kg [facility] [place] [facility] [place] BMI 2022-08-03 20:15:00 35.11 kg/m2 Universi ty of [facility] Oxygen saturation in 2022-08-03 20:15:00 94 /min [facility] Arterial blood by [facility] Pulse oximetry Branch height 2022-07-29 15:20:00 65.5 [in_i] [facility] weight 2022-07-29 15:20:00 225.9 [lb_av] [facility] temperature 2022-07-29 15:20:00 97.7 [degF] [facility] bmi 2022-07-29 15:20:00 37.02 kg/m2 [facility] oximetry 2022-07-29 15:20:00 98 % [facility] respiratory rate 2022-07-29 15:20:00 18 /min Comm on [facility] blood pressure 2022-07-29 15:20:00 139 mm[Hg] Common [facility] - systolic [facility] blood pressure 2022-07-29 15:20:00 77 mm[Hg] Common [facility] - diastolic [facility] height 2022-05-04 11:20:00 65.5 [in_i] [facility] weight 2022-05-04 11:20:00 213 [lb_av] [facility] bmi 2022-05-04 11:20:00 34.9 kg/m2 [facility] height 2022-03-24 15:40:00 65.5 [in_i] [facility] weight 2022-03-24 15:40:00 213 [lb_av] [facility] temperature 2022-03-24 15:40:00 99.0 [degF] [facility] bmi 2022-03-24 15:40:00 34.9 kg/m2 [facility] oximetry 2022-03-24 15:40:00 95 % [facility] respiratory rate 2022-03-24 15:40:00 16 /min Comm on [facility] blood pressure 2022-03-24 15:40:00 134 mm[Hg] Common [facility] - systolic [facility] blood pressure 2022-03-24 15:40:00 88 mm[Hg] Common [facility] - diastolic [facility] Systolic blood 2022-01-15 15:31:00 145 mm[Hg] Univer sity of pressure [facility] Diastolic blood 2022-01-15 15:31:00 91 mm[Hg] Unive rsity of [facility] Heart rate 2022-01-15 15:31:00 90 /min Universi ty [facility] Oxygen saturation in 2022-01-15 15:31:00 95 /min [facility] blood by [facility] Pulse oximetry Branch Body height 2022-01-15 15:22:00 167.6 cm Universi ty of [facility] Body weight 2022-01-15 15:22:00 100.2 kg Universi ty [facility] BMI 2022-01-15 15:22:00 35.65 kg/m2 Universi ty of [facility] height 2021-12-23 14:20:00 67 [in_i] [facility] weight 2021-12-23 14:20:00 215.5 [lb_av] [facility] temperature 2021-12-23 14:20:00 98.0 [degF] [facility] bmi 2021-12-23 14:20:00 33.75 kg/m2 [facility] oximetry 2021-12-23 14:20:00 96 % [facility] respiratory rate 2021-12-23 14:20:00 17 /min Comm on [facility] blood pressure 2021-12-23 14:20:00 132 mm[Hg] [facility] - systolic [facility] blood pressure 2021-12-23 14:20:00 87 mm[Hg] [facility] - diastolic [facility] Systolic blood 2021-12-21 20:39:00 153 mm[Hg] Univer sity of pressure [facility] Diastolic blood 2021-12-21 20:39:00 74 mm[Hg] Unive rsity of pressure [facility] Heart rate 2021-12-21 20:39:00 87 /min Universi ty [facility] Body height 2021-12-21 20:39:00 170.2 cm Universi ty [facility] Body weight 2021-12-21 20:39:00 63.05 kg Universi ty [facility] BMI 2021-12-21 20:39:00 21.77 kg/m2 Universi ty [facility] height 2021-07-02 14:20:00 67 [in_i] [facility] weight 2021-07-02 14:20:00 205 [lb_av] [facility] temperature 2021-07-02 14:20:00 98 [degF] Common [facility] bmi 2021-07-02 14:20:00 32.1 kg/m2 [facility] blood pressure 2021-07-02 14:20:00 128 mm[Hg] [facility] - systolic [facility] blood pressure 2021-07-02 14:20:00 78 mm[Hg] Common [facility] - diastolic [facility] Procedures Procedure Date / Time Performed Performing Clinician Sour e REFERRAL- 2022-07-06 06:01:00 Doctor Unassigned, No [facility] [place] REQUEST[facility]RESPONSE Name [facility] SCANNED LAB RESULTS 2021-12-28 05:01:00 Doctor Unassigned, No [facility] [place] Name [facility] Encounters Start End Encounter Admission Attending Care Care Encounter Source Date/Time Date/Time Type Type Clinicians Facility Department ID 2022-10-25 Outpatient Jimenez, STLMLC STLMLC [id number] Common 14:53:01 Diana 12646 [facility] 2022-07-28 Outpatient Jimenez, STLMLC STLMLC [id number] [facility] 15:02:01 Diana 14478 [facility] 2022-06-29 Outpatient Jimenez, STLMLC STLMLC [id number] Common 15:13:00 Diana [id number] [facility] 2022-03-25 Outpatient Jimenez, STLMLC STLMLC [id number] Common 12:17:00 Diana [facility] 2022-03-04 Outpatient Jimenez, STLMLC STLMLC [id number] Common 13:08:00 Diana [facility] 2021-12-24 Outpatient Jimenez, STLMLC STLMLC [id number] Common 08:55:00 Diana [facility] 2021-10-21 Outpatient Jimenez, STLMLC STLMLC [id number] Common 10:55:01 Diana [facility] 2021-10-12 Outpatient Jimenez, STLMLC STLMLC [id number] Common 09:48:01 Diana [facility] 2021-10-08 Outpatient Jimenez, STLMLC STLMLC [id number] Common 11:48:01 Diana [facility] 2021-09-16 Outpatient Jimenez, STLMLC STLMLC [id number] Common 14:12:10 Diana [facility] 2021-09-16 Outpatient Jimenez, STLMLC STLMLC [id number] Common 13:35:35 Diana [facility] 2021-09-16 Outpatient Jimenez, STLMLC STLMLC [id number] Common 12:59:49 Diana [facility] 2021-09-16 Outpatient Jimenez, STLMLC STLMLC [id number] Common 12:53:40 Diana 50226 [facility] 2021-09-16 Outpatient Jimenez, STLMLC STLMLC [id number] Common 12:24:31 Diana 42612 [facility] 2021-09-16 Outpatient Jimenez, STLMLC STLMLC [id number] Common 11:58:12 Diana 20370 [facility] 2021-09-16 Outpatient Jimenez, STLMLC STLMLC [id number] Common 11:57:01 Diana 96981 [facility] 2021-09-16 Outpatient Jimenez, STLMLC STLMLC [id number] Common 11:32:27 Diana 85075 [facility] 2021-09-16 Outpatient Jimenez, STLMLC STLMLC [id number] Common 11:18:43 Diana 02365 [facility] 2021-09-16 Outpatient Jimenez, STLMLC STLMLC [id number] Common 11:17:53 Diana 71696 [facility] 2021-09-16 Outpatient Jimenez, STLMLC STLMLC [id number] Common 11:02:12 [facility] 0[address] [facility] 2022-09-13 2022-09-13 (TEL) STLMLC STLMLC [id number] Co mmon 00:00:00 00:00:00 [facility] 2022-08-24 2022-08-24 Office Rocio Adriano [facility] [id number] Univers 15:00:00 15:15:00 Visit [facility] [id number] [id number] [phone] [address] OFFICE BUILDING 2022-08-24 2022-08-24 Outpatient R ADRIANO ALEXANDER [facility] [id number] Univers 15:00:00 15:00:00 cooper [facility] 2022-08-03 2022-08-03 [facility] [id number] Univers 14:30:00 14:46:13 FILOMENA gamboa [facility] 2022-08-03 2022-08-03 [facility] [id number] Univers 14:30:00 14:46:13 Visit Filomena MEZA [id number] i ty [id number] [facility] [phone] [address] 2022-07-29 2022-07-29 [facility] [id number] Univers 14:30:00 14:30:00 FILOMENA gamboa [facility] 2022-07-29 2022-07-29 [facility] [id number] Co mmon 00:00:00 00:00:00 VISIT [facility] ESTAB PT - [facility] L[facility]EL [facility] 2022-07-27 2022-07-27 [facility]patient [facility] [id number] Univers 15:00:00 15:00:00 FILOMENA gamboa [facility] 2022-07-06 2022-07-06 Orders Doctor TOBAR [id number] Univers 00:00:00 00:00:00 Only Unassigned, AYSHA [id number] ity of [place] [facility] [id number] Rigoberto as [phone] [place] [address] [place] 2022-07-05 2022-07-05 (TEL) STLMLC STLMLC [id number] Co mmon 00:00:00 00:00:00 [facility] 2022-05-04 2022-05-04 OL DIG E/M STLMLC STLMLC [id number] Common 00:00:00 00:00:00 [facility] 11-20 Spir it [facility] 2022-05-04 2022-05-04 (TEL) STLMLC STLMLC [id number] Co mmon 00:00:00 00:00:00 [facility] 2022-05-03 2022-05-03 (TEL) STLMLC STLMLC [id number] Co mmon 00:00:00 00:00:00 [facility] 2022-04-05 2022-04-05 (TEL) STLMLC STLMLC [id number] Co mmon 00:00:00 00:00:00 [facility] 2022-03-30 2022-03-30 (TEL) STLMLC STLMLC [id number] Co mmon 00:00:00 00:00:00 [facility] 2022-03-24 2022-03-24 (WELLNESS) STLMLC STLMLC [id number] Common 00:00:00 00:00:00 [facility] 2022-03-01 2022-03-01 (TEL) STLMLC STLMLC [id number] Co mmon 00:00:00 00:00:00 [facility] 2022-02-18 2022-02-18 (TEL) STLMLC STLMLC [id number] Co mmon 00:00:00 00:00:00 [facility] 2022-01-20 2022-01-20 Telephone THEA Krueger [id number] [facility] 00:00:00 00:00:00 Harinder L HEALTH [id number] it y of [place] [id number] Rigoberto as YOBANY?BLEA [phone] Me carol MOMIN [address] [place] MEDICAL OFFICE BUILDING 2022-01-15 2022-01-15 Office Pati [facility] [id number] Univers 11:00:00 11:32:20 Visit Harinedr [facility] [id number] it y of [place] [id number] Rigoberto as YOBANY?BLEA [phone] Nd carol [address] MEDICAL OFFICE [facility] 2022-01-15 2022-01-15 [facility] [id number] Univers 11:00:00 11:32:20 HARINDERYOSELIN gamboa [facility] 2022-01-15 2022-01-15 Outpatient Thi[facility] [id number] Univers 11:00:00 11:32:20 HARINDERYOSELIN gamboa [facility] 2022-01-15 2022-01-15 [facility] [id number] Univers 11:00:00 11:00:00 [facility] 2022-01-07 2022-01-07 Orders Doctor TOBAR [id number] Univers 00:00:00 00:00:00 Only Unassigned, AYSHA [id number] ity of [place] [facility] [id number] Rigoberto as [phone] [address] 2021-12-28 2021-12-28 [facility]patient [facility] [id number] Univers 14:30:00 14:30:00 HARINDERYOSELIN gamboa [facility] 2021-12-28 2021-12-28 [facility] [id number] Univers 14:30:00 14:30:00 HARINDERYOSELIN gamboa [facility] 2021-12-28 2021-12-28 [facility] [id number] Univers 14:30:00 14:30:00 HARINDER avelino [facility] 2021-12-28 2021-12-28 Orders Doctor AMADOU [id number] Univers 00:00:00 00:00:00 Only Unassigned, AYSHA [id number] ity of [facility] [id number] Rigoberto as [phone] [address] 2021-12-23 2021-12-23 OFFICE [facility] STLC [id number] Co mmon 00:00:00 00:00:00 VISIT [facility] PT - CHI LEVEL 4 [facility] 2021-12-21 2021-12-21 Outpatient Thiago [facility] [id number] Univers 15:43:28 23:59:00 [facility] 2021-12-21 2021-12-21 [facility] [id number] Univers 15:43:28 23:59:00 [facility] 2021-12-21 2021-12-21 [facility] [id number] Univers 15:30:00 16:07:00 [facility] 2021-12-21 2021-12-21 Office [facility] [id number] Univers 15:30:00 16:07:00 Visit [facility] [id number] it y of [place] [id number] Rigoberto as YOBANY?BLEA [id number] [address] MEDICAL OFFICE BUILDING 2021-11-11 2021-11-11 (TEL) STLC STLC [id number] Co mmon 00:00:00 00:00:00 [facility] 2021-11-02 2021-11-02 (TEL) STLC STLMLC [id number] Co mmon 00:00:00 00:00:00 [facility] 2021-07-02 2021-07-02 OFFICE STLC STLC [id number] Co mmon 00:00:00 00:00:00 VISIT [facility] PT - CHI LEVEL 4 [facility] 2021-03-30 2021-03-30 Outpatient STLC STLC [id number] Common 00:00:00 00:00:00 [facility] 2020-12-25 2020-12-25 Outpatient STLMLC STLMLC [id number] Common 00:00:00 00:00:00 [facility] 2020-09-18 2020-09-18 Outpatient STLMLC STLMLC [id number] Common 00:00:00 00:00:00 [facility] 2020-09-15 2020-09-15 Outpatient STLMLC STLMLC [id number] Common 00:00:00 00:00:00 [facility] 2020-06-12 2020-06-12 Outpatient STLMLC STLMLC [id number] Common 00:00:00 00:00:00 [facility] 2020-06-02 2020-06-02 Outpatient STLMLC STLMLC [id number] Common 00:00:00 00:00:00 [facility] 2020-03-25 2020-03-25 [facility] [id number] Common 15:00:00 15:00:[address] [facility] 2020-03-18 2020-03-18 [facility] [id number] Common 16:51:00 16:51:[address] [facility] 2020-02-05 2020-02-05 [facility] [id number] Common 16:26:00 16:26:[address] [facility] 2019-12-11 2019-12-11 Out[facility] [id number] Common 13:15:00 13:15:[address] [facility] 2019-10-16 2019-10-16 [facility] [id number] Common 08:56:00 08:56:[address] [facility] 2019-10-12 2019-10-12 [facility] [id number] Common 09:41:00 09:41:[address] [facility] 2019-09-26 2019-09-26 Outpatient Mahamed Irbyt [id number] Common 09:14:00 09:14:[address] [facility] 2019-09-11 2019-09-11 Outpatient Mahamed Irbyt [id number] Common 16:41:00 16:41:[address] [facility] 2019-09-11 2019-09-11 Outpatient Mahamed Irbyt [id number] Common 14:45:00 14:45:00 [address] [employer] [address] [facility] Results This patient has no known results.
[2022-12-22 08:17] LABS: Absolute Lymphocytes (CBC) 3.4 K/uL (0.7-4.9); Hematocrit 43.1 % (39.6-49.0); Lymphocytes % 38.7 % (15.3-44.8); MCV 89.5 fL (80-100); MPV 6.9 fL (7.6-11.3); RBC Red Blood Cell Count 4.82 M/uL (4.33-5.43)
[2022-12-22 08:20] LABS: Protime INR 1.11
--- NOTE | 2022-12-22 08:23 | RAD REPORT ---
EXAM DESCRIPTION: RAD - Chest Single View - 12/22/2022 8:18 am CLINICAL HISTORY: COUGH Chest pain. COMPARISON: Chest Single View dated 04/13/2022; Chest Pa And Lat (2 Views) dated 04/05/2022; Abdomen 1 View (KUB) dated 01/29/2022; Abdomen 1 View (KUB) dated 01/27/2022 FINDINGS: Portable technique limits examination quality. The lungs are grossly clear. Moderate cardiomegaly. No displaced fractures.
[2022-12-22 08:28] LABS: Specific Gravity < 1.005 (1.005-1.030); Urine Bilirubin NEGATIVE (Negative); Urine Blood Negative (Negative); Urine Clarity Clear (Clear); Urine Color Colorless (Yellow); Urine Glucose 3+ (Negative); Urine Protein NEGATIVE (Negative); Urine Urobilinogen Normal (Normal)
[2022-12-22] MEDS ORDERED: NA CHLORIDE 0.9% 1,000 ML ONE (08:32)
[2022-12-22 08:54] LABS: Albumin 3.5 g/dL (3.4-5.0); Bilirubin Direct 0.2 mg/dL (0-0.2); Bilirubin Total 0.6 mg/dL (0.2-1.0); Magnesium 2.2 mg/dL (1.6-2.4); Potassium 3.5 mEq/L (3.5-5.1); Protein, Total 7.9 g/dL (6.4-8.2); Troponin High Sensitivity 7.2 pg/mL (<58.9)
[2022-12-22] MEDS ORDERED: lisinopriL 10 MG TAB ONE (09:47)
[2022-12-22] MEDS ORDERED: THIAMINE 200 MG/2 ML INJ ONE (09:47)
--- NOTE | 2022-12-22 10:10 | RAD REPORT ---
EXAM DESCRIPTION: CT - Chest For Pe Angio - 12/22/2022 9:49 am CLINICAL HISTORY: Chest pain. DYSPNEA COMPARISON: Chest For Pe Angio dated 02/26/2019 TECHNIQUE: CT angiogram of the pulmonary arteries was performed with MIP. All CT scans are performed using dose optimization technique as appropriate and may include automated exposure control or mA/KV adjustment according to patient size. FINDINGS: No evidence of pulmonary thromboembolism. No acute aortic finding demonstrated. The lungs are clear. No significant pericardial or pleural fluid. No concerning bony finding. IMPRESSION: No evidence of pulmonary thromboembolism. No acute lung findings.
--- NOTE | 2022-12-22 10:42 | EDPHYS ---
Physician Documentation [facility] Name: Dwayne Walker Jr Age: 52 yrs Sex: Male : 1970 Arrival Date: 12/22/2022 Time: 07:34 Bed 18 Private MD: GEOVANNI Physician Chris Olea HPI: 12/22 09:39 This 52 yrs old Male presents to ER via EMS with complaints of sob, epistaxis jose and weak. 09:39 The patient presents with a nose bleed, that is apparently anterior, from the left jose nare, occurred from an unknown cause, that is intermittent causative factors include: antecedent infection. Onset: The symptoms/episode began/occurred 2 day(s) ago. Modifying factors: The symptoms are alleviated by nothing. the symptoms are aggravated by nothing. The patient has shortness of breath with light activity. Duration: The symptoms are continuous, and are steadily getting worse. The patient's shortness of breath is aggravated by nothing, is alleviated by nothing. hx vicente dvt's and pe's on eliquis. Associated signs and symptoms: The patient has no apparent associated signs or symptoms. Severity of symptoms: At their worst the symptoms were mild moderate in the emergency department the symptoms are unchanged. The patient has experienced similar episodes in the past, several times. Historical: - Allergies: 07:47 No Known Allergies; cm9 - Home Meds: 07:47 Eliquis 5 mg oral tablet [Active]; cm9 - PMHx: 07:47 DVT; Hypertension; Pulmonary Embolism; Umbilical hernia; cm9 - PSHx: 07:47 Leg surgery; cm9 - Immunization history:: Client reports receiving the 2nd dose of the Covid vaccine. - Social history:: Smoking status: Patient denies any tobacco usage or history of. Patient uses alcohol, only on a social basis. Patient/guardian denies using street drugs, IV drugs. ROS: 09:41 Constitutional: Negative for fever, chills, and weight loss, Eyes: Negative for injury, jose pain, redness, and discharge, ENT: Negative for injury, pain, and discharge, Neck: Negative for injury, pain, and swelling, Cardiovascular: Negative for chest pain, palpitations, and edema, Abdomen/GI: Negative for abdominal pain, nausea, vomiting, diarrhea, and constipation, Back: Negative for injury and pain, : Negative for injury, bleeding, discharge, and swelling, MS/Extremity: Negative for injury and deformity, Skin: Negative for injury, rash, and discoloration, Neuro: Negative for headache, weakness, numbness, tingling, and seizure, Psych: Negative for depression, anxiety, suicide ideation, homicidal ideation, and hallucinations, Allergy/Immunology: Negative for hives, rash, and allergies, Endocrine: Negative for neck swelling, polydipsia, polyuria, polyphagia, and marked weight changes, Hematologic/Lymphatic: Negative for swollen nodes, abnormal bleeding, and unusual bruising. 09:41 Respiratory: Positive for cough, with no reported sputum. Exam: 09:42 Constitutional: This is a well developed, well nourished patient who is awake, alert, jose and in no acute distress. Head/Face: Normocephalic, atraumatic. Eyes: Pupils equal round and reactive to light, extra-ocular motions intact. Lids and lashes normal. Conjunctiva and sclera are non-icteric and not injected. Cornea within normal limits. Periorbital areas with no swelling, redness, or edema. ENT: Nares patent. No nasal discharge, no septal abnormalities noted. Tympanic membranes are normal and external auditory canals are clear. Oropharynx with no redness, swelling, or masses, exudates, or evidence of obstruction, uvula midline. Mucous membranes moist. Neck: Trachea midline, no thyromegaly or masses palpated, and no cervical lymphadenopathy. Supple, full range of motion without nuchal rigidity, or vertebral point tenderness. No Meningismus. Chest/axilla: Normal chest wall appearance and motion. Nontender with no deformity. No lesions are appreciated. Cardiovascular: Regular rate and rhythm with a normal S1 and S2. No gallops, murmurs, or rubs. Normal PMI, no JVD. No pulse deficits. Respiratory: Lungs have equal breath sounds bilaterally, clear to auscultation and percussion. No rales, rhonchi or wheezes noted. No increased work of breathing, no retractions or nasal flaring. Abdomen/GI: Soft, non-tender, with normal bowel sounds. No distension or tympany. No guarding or rebound. No evidence of tenderness throughout. Back: No spinal tenderness. No costovertebral tenderness. Full range of motion. Skin: Warm, dry with normal turgor. Normal color with no rashes, no lesions, and no evidence of cellulitis. MS/ Extremity: Pulses equal, no cyanosis. Neurovascular intact. Full, normal range of motion. Neuro: Awake and alert, GCS 15, oriented to person, place, time, and situation. Cranial nerves II-XII grossly intact. Motor strength 5/5 in all extremities. Sensory grossly intact. Cerebellar exam normal. Normal gait. Psych: Awake, alert, with orientation to person, place and time. Behavior, mood, and affect are within normal limits. 09:42 ECG was reviewed by the Attending Physician. Vital Signs: 07:44 BP 139 / 75; Pulse 105; Resp 20; Temp 98; Pulse Ox 94% on R/A; cm9 08:12 Weight 62.6 kg; Height 5 ft. 9 in. ; cm9 09:01 BP 138 / 91; Pulse 99; Resp 17; Pulse Ox 100% on R/A; cm9 10:31 BP 155 / 87; Pulse 94; Resp 18; Pulse Ox 96% on R/A; cm9 11:03 BP 120 / 73; Pulse 92; Resp 18; Pain 0/10; cm9 08:12 Body Mass Index 20.38 (62.60 kg, 175.26 cm) cm9 11:03 Pain Scale: Adult cm9 MDM: 07:42 Patient medically screened. jose 07:42 Patient medically screened. jose 09:46 Differential diagnosis: spontaneous epistaxis. Antibiotic administration: Not jose indicated. Immunization status: Influenza vaccine: Data reviewed: vital signs, nurses notes, EMS record, lab test result(s), EKG, radiologic studies, CT scan, doppler, plain films. Consideration of Admission/Observation Escalation of care including admission/observation considered. I considered the following discharge prescriptions or medication management in the emergency department Medications were administered in the Emergency Department. See MAR. Test considered but Not performed: MRI: no mri chest. Historians other than the Patient: EMS: review and discussed. Care significantly affected by the following chronic conditions: Hypertension, Liver Disease, etoh abuse, pe, dvt, unbilical hernia. Counseling: I had a detailed discussion with the patient and/or guardian regarding: the historical points, exam findings, and any diagnostic results supporting the discharge/admit diagnosis, the presence of at least one elevated blood pressure reading (>120/80) during this emergency department visit, lab results, radiology results, the need for outpatient follow up, for definitive care, a family practitioner, a agricultural education teacher, a psychiatrist. 12/22 07:43 Order name: Basic Metabolic Panel; Complete Time: 09:01 [facility] 12/22 07:43 Order name: CBC with Diff; Complete Time: 08:42 [facility] 12/22 07:43 Order name: LFT's; Complete Time: 09:01 [facility] 12/22 07:43 Order name: Magnesium; Complete Time: 09:01 [facility] 12/22 07:43 Order name: NT PRO-BNP; Complete Time: 09:01 [facility] 12/22 07:43 Order name: PT-INR; Complete Time: 08:42 [facility] 12/22 07:43 Order name: Troponin HS; Complete Time: 09: [facility] 12/22 07:43 Order name: Urinalysis w/ reflexes; Complete Time: 08:42 [facility] 12/22 07:43 Order name: XRAY Chest (1 view); Complete Time: 08:42 [facility] 12/22 09:16 Order name: US Extremity Venous W Compression Gene; Complete Time: 11:21 [facility] 12/22 09:32 Order name: CT Chest For PE Angio; Complete Time: 10:42 [facility] 12/22 07:43 Order name: EKG; Complete Time: 07:44 [facility] 12/22 07:43 Order name: Cardiac monitoring; Complete Time: 07:50 [facility] 12/22 07:43 Order name: EKG - Nurse/Tech; Complete Time: 08:11 [facility] 12/22 07:43 Order name: IV Saline Lock; Complete Time: 08:11 [facility] 12/22 07:43 Order name: Labs collected and sent; Complete Time: 08:11 [facility] 12/22 07:43 Order name: O2 Per Protocol; Complete Time: 07:50 [facility] 12/22 07:43 Order name: O2 Sat Monitoring; Complete Time: 07:50 [facility] EC:42 Rate is 98 beats/min. Rhythm is regular. QRS [place] is Normal. IN interval is normal. QRS jose interval is normal. QT interval is normal. No Q waves. T waves are Normal. No ST changes noted. Clinical impression: NSR w/ Non-specific ST/T Changes and No evidence of ischemia. Interpreted by me. Reviewed by me. Administered Medications: 08:33 Drug: NS 0.9% IV 1000 ml Route: IV; Rate: 75 ml/hr; Site: right antecubital; cm9 10:40 Drug: Thiamine IV 100 mg Route: IV; Rate: per protocol; Site: right antecubital; cm9 10:40 Drug: Lisinopril PO 10 mg Route: PO; cm9 Disposition Summary: 12/22/22 10:42 Discharge Ordered Location: Home jose Problem: new jose Symptoms: have improved jose Condition: Stable jose Diagnosis - Epistaxis jose - Acute viral hepatitis, unspecified jose - Essential (primary) hypertension jose - Alcohol abuse jose - Alcohol dependence jose - Cardiomegaly jose Followup: jose - With: Private Physician - When: 2 - 3 days - Reason: Recheck today's complaints, Continuance of care, Re-evaluation by your physician Followup: jose - With: - When: 2 - 3 days - Reason: Recheck today's complaints, Re-evaluation by your physician Followup: jose - With: - When: 2 - 3 days - Reason: Recheck today's complaints, Re-evaluation by your physician Followup: jose - With: - When: 2 - 3 days - Reason: Recheck today's complaints, Re-evaluation by your physician Discharge Instructions: - Discharge Summary Sheet jose - Nosebleed, Adult jose - Hypertension, Adult jose - Cool Mist Vaporizer jose - Hypertension, Adult, Dxra-zy-Jpcu jose - How to Take Your Blood Pressure, Dums-wv-Bhfd jose - Aspirin and Your Heart jose - Nosebleed, Adult, Kcfe-nz-Kuoz jose - Managing Your Hypertension jose Forms: - Medication Reconciliation Form jose - Thank You Letter jose - Antibiotic Education jose - Prescription Opioid Use jose Prescriptions: - Pepcid 20 mg Oral Tablet - take 1 tablet by ORAL route every 12 hours for 21 days; 42 tablet; Refills: 0, jose Product Selection Permitted - Lisinopril 10 mg Oral Tablet - take 1 tablet by ORAL route once daily; 20 tablet; Refills: 0, Product [facility] Selection Permitted Signatures: Dispatcher [employer] Chris Gonzalez MD MD cha McDuffie, Courtney RN RN cm9 Corrections: (The following items were deleted from the chart) 07:48 07:47 PMHx: Chronic pain; cm9 cm9 07:48 07:47 PMHx: GERD; cm9 cm9 07:48 07:47 PMHx: High Cholesterol; cm9 cm9 07:48 07:47 PMHx: Anxiety; 9 9
--- NOTE | 2022-12-22 10:42 | ER ---
Nurse's Notes [facility] Name: Dwayne Walker Jr Age: 52 yrs Sex: Male : 1970 Arrival Date: 12/22/2022 Time: 07:34 Bed 18 Private MD: Diagnosis: Epistaxis;Acute viral hepatitis, unspecified;Essential (primary) hypertension;Alcohol abuse;Alcohol dependence;Cardiomegaly Presentation: 12/22 07:44 Chief complaint: Patient states: shortness of breath x multiple weeks, worse today, cm9 reports PMH of blood clots in the lungs, on Eliquis, taking daily. Coronavirus screen: Vaccine status: Patient reports receiving the 2nd dose of the covid vaccine. At this time, the client does not indicate any symptoms associated with coronavirus-19. Ebola Screen: No symptoms or risks identified at this time. Initial Sepsis Screen: Does the patient meet any 2 criteria? No. Patient's initial sepsis screen is negative. Does the patient have a suspected source of infection? No. Patient's initial sepsis screen is negative. Risk Assessment: Do you want to hurt yourself or someone else? Patient reports no desire to harm self or others. Onset of symptoms was December 22, 2022. 07:44 Method Of Arrival: EMS: [facility] 07:44 Acuity: FÉLIX 2 cm9 Triage Assessment: 07:47 General: Appears in no apparent distress. Behavior is calm, cooperative. Pain: Denies cm9 pain. Neuro: Level of Consciousness is awake, alert, obeys commands, Oriented to person, place, time, situation. Cardiovascular: Capillary refill < 3 seconds Patient's skin is warm and dry. Respiratory: Reports shortness of breath on exertion since one week Airway is patent Respiratory effort is even, unlabored, Respiratory pattern is regular, symmetrical. Historical: - Allergies: 07:47 No Known Allergies; cm9 - Home Meds: 07:47 Eliquis 5 mg oral tablet [Active]; cm9 - PMHx: 07:47 DVT; Hypertension; Pulmonary Embolism; Umbilical hernia; cm9 - PSHx: 07:47 Leg surgery; cm9 - Immunization history:: Client reports receiving the 2nd dose of the Covid vaccine. - Social history:: Smoking status: Patient denies any tobacco usage or history of. Patient uses alcohol, only on a social basis. Patient/guardian denies using street drugs, IV drugs. Screenin:13 [facility] ED Fall Risk Assessment (Adult) History of falling in the last 3 months, cm9 including since admission Yes- single mechanical fall (1 pt) Confusion or Disorientation No (0 pts) Intoxicated or Sedated No (0 pts) Impaired Gait No (0 pts) Mobility Assist Device Used No (0 pt) Altered Elimination No (0 pt) Score/Fall Risk Level 0 - 2 = Low Risk Oriented to surroundings, Maintained a safe environment, Educated pt \T\ family on fall prevention, incl call for assistance when getting out of bed, Assessed \T\ reinforced patient's understanding of fall precautions, Hourly rounding (assess needs \T\ fall precautionary measures) done. Abuse screen: Denies threats or abuse. Nutritional screening: No deficits noted. Tuberculosis screening: No symptoms or risk factors identified. Assessment: 08:13 Reassessment: Patient and/or family updated on plan of care and expected duration. Pain cm9 level reassessed. Patient is alert, oriented x 3, equal unlabored respirations, skin warm/dry/pink. see triage assessment. GI: Abdomen is round distended. 11:03 Reassessment: Patient and/or family updated on plan of care and expected duration. Pain cm9 level reassessed. Patient is alert, oriented x 3, equal unlabored respirations, skin warm/dry/pink. Patient denies pain at this time. Patient states feeling better. Patient states symptoms have improved. Vital Signs: 07:44 BP 139 / 75; Pulse 105; Resp 20; Temp 98; Pulse Ox 94% on R/A; cm9 08:12 Weight 62.6 kg; Height 5 ft. 9 in. ; cm9 09:01 BP 138 / 91; Pulse 99; Resp 17; Pulse Ox 100% on R/A; cm9 10:31 BP 155 / 87; Pulse 94; Resp 18; Pulse Ox 96% on R/A; cm9 11:03 BP 120 / 73; Pulse 92; Resp 18; Pain 0/10; cm9 08:12 Body Mass Index 20.38 (62.60 kg, 175.26 cm) cm9 11:03 Pain Scale: Adult cm9 ED Course: 07:42 Patient arrived in ED. [facility] 07:42 Chris Olea MD is Attending Physician. jose 07:43 Desiree Wilder, RN is Primary Nurse. cm9 07:47 Triage completed. cm9 07:47 Arm band placed on right wrist. cm9 08:11 Basic Metabolic Panel Sent. cm9 08:11 CBC with Diff Sent. cm9 08:11 LFT's Sent. cm9 08:11 Magnesium Sent. cm9 08:12 NT PRO-BNP Sent. cm9 08:12 PT-INR Sent. cm9 08:12 Troponin HS Sent. cm9 08:12 Urinalysis w/ reflexes Sent. cm9 08:13 Patient has correct armband on for positive identification. Bed in low position. Call cm9 light in reach. Side rails up X 1. Side rails up X2. 08:13 Inserted saline lock: 20 gauge in right antecubital area, using aseptic technique. cm9 Blood collected. 08:19 XRAY Chest (1 view) In Process Unspecified. EDMS 09:[address] via wheelchair. cm9 09:51 CT Chest For PE Angio In Process Unspecified. EDMS 10:31 US Extremity Venous W Compression Geen In Process Unspecified. EDMS 10:42 Aayush Bob MD is Referral Physician. jose 10:42 Andre Owen MD is Referral Physician. jose 10:42 Lo Malone MD is Referral Physician. jose 11:03 No provider procedures requiring assistance completed. IV discontinued, intact, cm9 bleeding controlled, No redness/swelling at site. Administered Medications: 08:33 Drug: NS 0.9% IV 1000 ml Route: IV; Rate: 75 ml/hr; Site: right antecubital; cm9 10:40 Drug: Thiamine IV 100 mg Route: IV; Rate: per protocol; Site: right antecubital; cm9 10:40 Drug: Lisinopril PO 10 mg Route: PO; cm9 Medication: 08:13 VIS not applicable for this client. cm9 Outcome: 10:42 Discharge ordered by . jose 11:03 Discharged to home ambulatory. cm9 11:03 Condition: good 11:03 Discharge instructions given to patient, Instructed on discharge instructions, follow up and referral plans. Demonstrated understanding of instructions, follow-up care. 11:35 Patient left the ED. ld1 Signatures: Dispatcher [employer] [facility]W[place] Chris Olea MD MD cha Sims, Lauren, RN RN ld1 Desiree Wilder RN RN cm9 Corrections: (The following items were deleted from the chart) 07:48 07:47 PMHx: Chronic pain; 9 9 48 07:47 PMHx: GERD; 9 48 07:47 PMHx: High Cholesterol; 9 9 :48 07:47 PMHx: Anxiety; 9 9
--- NOTE | 2022-12-22 11:07 | RAD REPORT ---
EXAM DESCRIPTION: US - Extrem Venous W Compress Gene - 12/22/2022 10:29 am CLINICAL HISTORY: Pain;Swelling Bilateral leg edema and swelling. COMPARISON: Extrem Venous W Compress Gene dated 03/10/2021 TECHNIQUE: Real-time sonographic interrogation of the left and right lower extremity deep venous sys tems was performed. FINDINGS: Normal compressibility, flow augmentation, phasic flow and spontaneous flow is identified in both the left and right lower extremity deep venous systems. IMPRESSION: No sonographic evidence of left or right lower extremity deep venous thrombosis.
[2022-12-22 11:43] VITALS: TEMP 98
[2022-12-22 11:45] VITALS: O2SAT 96
[2022-12-22 11:47] VITALS: BP 120/73
--- NOTE | 2022-12-22 14:05 | EKG ---
Test Date: 2022-12-22 Test Time: 07:59:54 [employer]: JOSHUA MEASUREMENT RESULTS: Intervals: Rate: 98 SD: 150 QRSD: 94 QT: 364 QTc: 464 [place]: P: 19 SD: 150 QRS: -6 T: 37 INTERPRETIVE STATEMENTS: Normal sinus rhythm Normal ECG Compared to ECG 02/23/2021 06:56:43 No significant changes Electronically Signed On 12-22-22 14:05:21 CDT by Andre Owen
== END 2022-12-22 11:35 | disposition home or self-care (01) ==
LOC: ER 07:34
DX: R04.0 Epistaxis (principal); B17.9 Acute viral hepatitis, unspecified; I10 Essential (primary) hypertension; I51.7 Cardiomegaly; F10.20 Alcohol dependence, uncomplicated; Z86.718 Personal history of other venous thrombosis and embolism; Z79.01 Long term (current) use of anticoagulants
CPT/HCPCS: 93005; 85025; 80048; 36415; 83735; 85610; 80076; 81003; 84484; 83880; 71275; 71045; 93970; Q9967; J3411; J7030; 96374; 99285

== ENCOUNTER 2023-02-04 01:25 | Emergency (ER) | payer OTHER ==
--- OUTSIDE RECORDS SUMMARY | 2023-02-04 01:30 | XMS REPORT | Continuity of Care Document ---
:1970 Author Organization [facility] t Address [address] [place] [address] [place] [id number] Care Team Providers Name Role Phone DIANA JIMENEZ Primary Care Physician Unavailable Diana Jimenez Attending Clinician Unavailable ADRIANO ALEXANDER Attending Clinician Unavailable Adriano Alexander MD Attending Clinician FILOMENA DARBY Attending Clinician Unavailable Filomena Darby MD Attending Clinician Doctor Unassigned, [place] Attending Clinician Unavailable Harinder Krueger MD Attending Clinician HARINDER KRUEGER Attending Clinician Unavailable Payers Payer Name Policy Type Policy Number Effective Date Expiration Date Abbey mendoza [facility] [id number] 2022 Common 00:00:00 [facility] [employer] [id number] 2019 Common (Medicaid) 00:00:00 [facility] Problems Condition Condition Condition Status Onset Resolution Last Treating Co mments Source Name Details Category Date Date Treatment Clinician Date Dyslipidem Dyslipidem Disease Active U nivers ia ia -18 ity of 00:00: [address] Essential Essential Disease Active Uni vers hypertensi hypertensi -06 it y of on on 00:00: [address] Chronic Chronic Disease Active Univers deep vein deep vein 04-27 ity [place] of 00 Medica l popliteal popliteal Bran ch vein vein Chronic Chronic Disease Active Univers pulmonary pulmonary 04-27 ity of embolism embolism 00:00: [place] [address] Medical Branch No known No known Disease Unive rs active active ity of problems problems [facility] [id number] Body mass Problem Com mon index Spirit [BMI] - 34.0-34.9, [facility] [id number] Other Problem Common obesity Spirit due to - excess [facility] [id number] History of Problem Co mmon pulmonary Spirit embolism - [facility] [id number] Peripheral Problem Com mon polyneurop Spirit athy [facility] [id number] HTN, goal Problem Comm on below Spirit 140/90 [facility] [id number] Generalize Problem Com mon d anxiety [facility] disorder [facility] [id number] Alcohol Problem Common abuse Spirit [facility] [id number] GERD Problem Common without Spirit esophagiti - [facility] [id number] Other Problem Common chronic Spirit pain [facility] [id number] Mixed Problem Common hyperlipid Spirit emia [facility] [id number] Depression Problem Co mmon with Spirit anxiety - [facility] Allergies, Adverse Reactions, Alerts Allergy Allergy Status Severity Reaction(s) Onset Inactive Treating Comm ents Source Name Type Date Date Clinician NO KNOWN Drug Active Univers ALLERGIE Class ity of [facility] Social History Social Habit Start Date Stop Date Quantity Comments Source History SDOH University o f Alcohol Std [place] [facility] History SDOH University o f Alcohol Binge [facility] [place] History of Common Spirit - Tobacco Use [facility] Sex Assigned At Common Sp valeire - [facility] Exposure to 2022-08-14 2022-08-24 Not sure University of SARS-CoV-2 00:00:00 14:49:00 [facility] (event) [place] Alcohol intake 2022-08-03 2022-08-03 Lifetime University of 00:00:00 00:00:00 non-drinker [facility] (finding) [place] Tobacco use and 2022-08-03 2022-08-03 Smokeless tobacco Un iversity of exposure 00:00:00 00:00:00 non-user [place] [facility] History SDOH 2021-12-21 2021-12-21 1 University o f Alcohol Frequency 00:00:00 00:00:00 [facility] edical Branch Alcohol Comment 2018-04-27 2018-04-27 3 glasses of Univers ity of 00:00:00 00:00:00 liquor /5 days a [facility] dical week Branch Smoking Status Start Date Stop Date Source Never smoked tobacco [facility] Medications Ordered Filled Start Stop [...] ity o f tablet 00:00: in the [place] morning. Medical Branch pantoprazol 2021- Yes 40mg Take 40 mg Univers e 40 mg EC 1-29 by mouth ity o f tablet 00:00: in the [place] morning. Medical Branch pantoprazol 2021- Yes 40mg Take 40 mg Univers e 40 mg EC 1-29 by mouth ity o f tablet 00:00: in the [place] morning. Medical Branch pantoprazol 2021- Yes 40mg Take 40 mg Univers e 40 mg EC 1-29 by mouth ity o f tablet 00:00: in the [place] morning. Medical Branch hydrOXYzine 2021- Yes TAKE 1 Univ ers 25 mg 1-21 TABLET BY ity of tablet 00:00: MOUTH [place] EVERY 8 Medical HOURS Branch NEEDED FOR ANXIETY hydrOXYzine 2021-08 Yes TAKE 1 Univ ers 25 mg 1-21 TABLET BY ity of tablet 00:00: MOUTH [place] EVERY 8 Medical HOURS Branch NEEDED FOR ANXIETY hydrOXYzine 2021-08 Yes TAKE 1 Univ ers 25 mg 1-21 TABLET BY ity of tablet 00:00: MOUTH [place] 00 EVERY 8 Medical HOURS Branch NEEDED FOR ANXIETY hydrOXYzine 2021-08 Yes TAKE 1 Univ ers 25 mg 1-21 TABLET BY ity of tablet 00:00: MOUTH [place] 00 EVERY 8 Medical HOURS Branch NEEDED FOR ANXIETY methylPREDN 2021-0 Yes [id number] 84mg Take 21 Univers ISolone 5-27 tablets by ity of (MEDROL, 00:00: mouth [place] RITU,) 4 mg 00 SEE-INSTRU Med ical tablets CTIONS. Branch follow package directions methylPREDN 2022-0 Yes [id number] 84mg Take 21 Univers ISolone 5-27 tablets by ity of (MEDROL, 00:00: mouth [place] RITU,) 4 mg 00 SEE-INSTRU Med ical tablets CTIONS. Branch follow package directions methylPREDN 2022-0 Yes [id number] 84mg Take 21 Univers ISolone 5-27 tablets by ity of (MEDROL, 00:00: mouth [place] RITU,) 4 mg 00 SEE-INSTRU Med ical tablets CTIONS. Branch follow package directions methylPREDN 2-0 Yes [id number] 84mg Take 21 Univers ISolone 5-27 tablets by ity of (MEDROL, 00:00: mouth [place] RITU,) 4 mg 00 SEE-INSTRU Med ical tablets CTIONS. Branch follow package directions methylPREDN 2021-0 Yes [id number] 84mg Take 21 Univers ISolone 5-27 tablets by ity of (MEDROL, 00:00: mouth [place] RITU,) 4 mg 00 SEE-INSTRU Med ical tablets CTIONS. Branch follow package directions methylPREDN 2021-0 Yes [id number] 84mg Take 21 Univers ISolone 5-27 tablets by ity of (MEDROL, 00:00: mouth [place] RITU,) 4 mg 00 SEE-INSTRU Med ical tablets CTIONS. Branch follow package directions methylPREDN 2021-0 Yes [id number] 84mg Take 21 Univers ISolone 5-27 tablets by ity of (MEDROL, 00:00: mouth [place] RITU,) 4 mg 00 SEE-INSTRU Med ical tablets CTIONS. Branch follow package directions colchicine 2021-0 2022- No [id number] .6mg Take 0.6 Univers 0.6 mg Cap 5-27 06-07 mg by ity of 00:00: 04:59 mouth 2 [place] 00 :00 (two) Medical times [place] daily for 10 days. colchicine 2021-0 2021- No [id number] .6mg Take 0.6 Univers 0.6 mg Cap 5-27 06-07 mg by ity of 00:00: 04:59 mouth 2 [place] 00 :00 ([facility]) Medical times [place] daily for 10 days. lisinopriL 0 Yes 40mg Take 40 mg U nivers 40 mg 3-21 by mouth ity of tablet 00:00: daily. [address] atorvastati 0 Yes 20mg Take 20 mg Univers n 20 mg 3-21 by mouth ity of tablet 00:00: daily. [address] ELIQUIS 5 0 Yes 5mg Take 5 mg Uni vers mg tablet 3-21 by mouth ity of 00:00: daily. [address] lisinopriL 0 Yes 40mg Take 40 mg U nivers 40 mg 3-21 by mouth ity of tablet 00:00: daily. [address] atorvastati 0 Yes 20mg Take 20 mg Univers n 20 mg 3-21 by mouth ity of tablet 00:00: daily. [address] ELIQUIS 5 2022-0 Yes 5mg Take 5 mg Uni vers mg tablet 3-21 by mouth ity of 00:00: daily. [facility] Branch lisinopriL 0 Yes 40mg Take 40 mg U nivers 40 mg 3-21 by mouth ity of tablet 00:00: daily. [facility] Branch lisinopriL 0 Yes 40mg Take 40 mg U nivers 40 mg 3-21 by mouth ity of tablet 00:00: daily. [facility] Branch atorvastati 0 Yes 20mg Take 20 mg Univers n 20 mg 3-21 by mouth ity of tablet 00:00: daily. [place] [facility] Branch ELIQUIS 5 0 Yes 5mg Take 5 mg Uni vers mg tablet 3-21 by mouth ity of 00:00: daily. [place] [facility] Branch lisinopriL 0 Yes 40mg Take 40 mg U nivers 40 mg 3-21 by mouth ity of tablet 00:00: daily. [facility] Branch atorvastati 0 Yes 20mg Take 20 mg Univers n 20 mg 3-21 by mouth ity of tablet 00:00: daily. [facility] ELIQUIS 5 0 Yes 5mg Take 5 mg Uni vers mg tablet 3-21 by mouth ity of 00:00: daily. [place] [facility] Branch lisinopriL 0 Yes 40mg Take 40 mg U nivers 40 mg 3-21 by mouth ity of tablet 00:00: daily. [facility] atorvastati 0 Yes 20mg Take 20 mg Univers n 20 mg 3-21 by mouth ity of tablet 00:00: daily. [facility] ELIQUIS 5 0 Yes 5mg Take 5 mg Uni vers mg tablet 3-21 by mouth ity of 00:00: daily. [place] [facility] Branch lisinopriL 0 Yes 40mg Take 40 mg U nivers 40 mg 3-21 by mouth ity of tablet 00:00: daily. [facility] atorvastati 0 Yes 20mg Take 20 mg Univers n 20 mg 3-21 by mouth ity of tablet 00:00: daily. [place] [facility] atorvastati 2021-0 Yes 20mg Take 20 mg Univers n 20 mg 3-21 by mouth ity of tablet 00:00: daily. [place] [facility] ELIQUIS 5 0 Yes 5mg Take 5 mg Uni vers mg tablet 3-21 by mouth ity of 00:00: daily. [place] [facility] Branch lisinopriL 0 Yes 40mg Take 40 mg U nivers 40 mg 3-21 by mouth ity of tablet 00:00: daily. [place] [facility] atorvastati 0 Yes 20mg Take 20 mg Univers n 20 mg 3-21 by mouth ity of tablet 00:00: daily. [place] [facility] ELIQUIS 5 0 Yes 5mg Take 5 mg Uni vers mg tablet 3-21 by mouth ity of 00:00: daily. [place] [facility] ELIQUIS 5 0 Yes 5mg Take 5 mg Uni vers mg tablet 3-21 by mouth ity of 00:00: daily. [place] [facility] lisinopriL 0 Yes 40mg Take 40 mg U nivers 40 mg 3-21 by mouth ity of tablet 00:00: daily. [place] [facility] atorvastati 0 Yes 20mg Take 20 mg Univers n 20 mg 3-21 by mouth ity of tablet 00:00: daily. [place] [facility] ELIQUIS 5 0 Yes 5mg Take 5 mg Uni vers mg tablet 3-21 by mouth ity of 00:00: daily. [address] HydrOXYzine HydrOXYzine 2020-0 Yes Diana 1 tablet Common HCl HCl 8-04 Jimenez as needed Spirit 00:00: - [facility] Diphenhydra Diphenhydra 2020-0 No 25mg Common mine mine 1-07 Spirit 00:00: - [facility] Diphenhydra Diphenhydra 2020-0 No 25mg Common mine mine 1- Spirit 00:00: - [facility] Diphenhydra Diphenhydra 2020-0 No 25mg Common mine mine 1- Spirit 00:00: - [facility] Diphenhydra Diphenhydra 2020-0 No 25mg Common mine mine 1 Spirit 00:00: - [facility] Diphenhydra Diphenhydra 2020-0 No 25mg Common mine mine 1- Spirit 00:00: - [facility] Diphenhydra Diphenhydra 2020-0 No 25mg Common mine mine 1- Spirit 00:00: - [facility] Diphenhydra Diphenhydra 2020-0 No 25mg Common mine mine 08-28 Spirit 00:00: - [facility] Diphenhydra Diphenhydra 2020-0 No 25mg Common mine mine 08-28 Spirit 00:00: - [facility] Diphenhydra Diphenhydra 2020-0 No 25mg Common mine mine 08-28 Spirit 00:00: - [facility] Diphenhydra Diphenhydra 2020-0 No 25mg Common mine mine 08-28 Spirit 00:00: - [facility] Diphenhydra Diphenhydra 2020-0 No 25mg Common mine mine 08-28 Spirit 00:00: - [facility] Diphenhydra Diphenhydra 2020-0 No 25mg Common mine mine 08-28 Spirit 00:00: - [facility] Diphenhydra Diphenhydra 2020-0 No 25mg Common mine mine 08-28 Spirit 00:00: - [facility] Diphenhydra Diphenhydra 2020-0 No 25mg Common mine mine 08-28 Spirit 00:00: - [facility] acetaminoph 2017-08 Yes 1{tbl} Take [...] 1-26 by mouth ity of 15:32: daily. [place] [address] Medical Branch hydroCHLORO 2017-08 Yes 12.5mg Take [...] 1-26 by mouth ity of 15:32: daily. [place] [address] Medical Branch hydroCHLORO 2017-08 Yes 12.5mg Take [...] 1-26 by mouth ity of 15:32: daily. [place] [address] Medical Branch hydroCHLORO 2017-08 Yes 12.5mg Take [...] 1 tablet Common Jimenez Spirit [facility] Atorvastati Atorvastati Yes Diana 1 tablet Common n Calcium n Calcium Jimenez Spir it - [facility] Omeprazole Omeprazole Yes Diana 1 capsule Common Jimenez 30 minutes Spirit before - CHI morning [facility] [place] Yes Diana 1 tablet Common Jimenez as needed Spirit - [facility] Eliquis Eliquis Yes Diana TAKE 1 Commo n Jimenez TABLET BY Spirit MOUTH - [facility]I EVERY DAY [facility] Lisinopril Lisinopril Yes Diana 1 tablet Common Jimenez Spirit - [facility] Cyclobenzap Cyclobenzap Yes Diana 1 tablet Common rine HCl rine HCl Jimenez as needed S pirit - [facility] Lisinopril Lisinopril Yes Diana TAKE 1 Common Jimenez TABLET BY Spirit MOUTH ONCE - CHI DAILY [facility] Eliquis 5 Eliquis 5 No 1{table QD Eliquis 5 MG MG t} MG Omeprazole Omeprazole No QD Omeprazole 40 MG 40 MG 40 MG [place] No 1{table [place] 7.5-325 MG 7.5-325 MG t_as_ne 7.5-325 MG [...] Lisinopril 40 MG 40 MG 40 MG [place] No 1{table [place] 7.5-325 MG 7.5-325 MG t_as_ne 7.5-325 MG [...] QD Eliquis 5 MG MG t} MG [place] No 1{table [place] 7.5-325 MG 7.5-325 MG t_as_ne 7.5-325 MG [...] rine HCl 5 rine HCl 5 t_at_be faua HCl MG MG dtime_a 5 MG s_neede d} Lisinopril Lisinopril No 1{table QD Lisinopril 40 MG 40 MG t} 40 MG Atorvastati Atorvastati No 1{table QD Atorvastat n Calcium n Calcium t} in Calcium 20 MG 20 MG 20 MG [place] No 1{table [place] 7.5-325 MG 7.5-325 MG t_as_ne 7.5-325 MG [...] Calcium 20 MG 20 MG 20 MG [place] No 1{table [place] 7.5-325 MG 7.5-325 MG t_as_ne 7.5-325 MG [...] 40 MG 40 MG t} 40 MG [place] No 1{table [place] 7.5-325 MG 7.5-325 MG t_as_ne 7.5-325 MG [...] 40 MG 40 MG t} 40 MG [place] No 1{table [place] 7.5-325 MG 7.5-325 MG t_as_ne 7.5-325 MG [...] 40 MG 40 MG t} 40 MG [place] No 1{table [place] 7.5-325 MG 7.5-325 MG t_as_ne 7.5-325 MG [...] 800 MG 800 MG t} 800 MG [place] No 1{table [place] 7.5-325 MG 7.5-325 MG t_as_ne 7.5-325 MG [...] 800 MG 800 MG t} 800 MG [place] No 1{table [place] 7.5-325 MG 7.5-325 MG t_as_ne 7.5-325 MG [...] 800 MG 800 MG t} 800 MG [place] No 1{table [place] 7.5-325 MG 7.5-325 MG t_as_ne 7.5-325 MG [...] MG MG dtime_a 5 MG s_neede d} [place] No 1{table [place] 7.5-325 MG 7.5-325 MG t_as_ne 7.5-325 MG [...] ISolone 4 NISolone 4 MG MG MG [place] No 1{table [place] 7.5-325 MG 7.5-325 MG t_as_ne 7.5-325 MG [...] MG MG dtime_a 5 MG s_neede d} [place] No 1{table [place] 7.5-325 MG 7.5-325 MG t_as_ne 7.5-325 MG [...] Calcium 20 MG 20 MG 20 MG [place] No 1{table [place] 7.5-325 MG 7.5-325 MG t_as_ne 7.5-325 MG [...] Hui 2022-07-29 Completed Common Spirit 15:22:00 - [facility] Ez Hui 2022-07-29 Completed Common Spirit 15:22:00 [facility] Flucelvax - single Flucelvax - single 2022-07-29 Completed Common Spirit dose syringe dose syringe 15:21:00 - [facility] Flucelvax - single Flucelvax - single 2022-07-29 Completed Common Spirit dose syringe dose syringe 15:21:00 [facility] Pneumovax (PPSV23) Pneumovax (PPSV23) 2021-03-30 Completed Common Spirit 14:37:00 [facility] Pneumovax (PPSV23) Pneumovax (PPSV23) 2021-03-30 Completed Common Spirit 14:37:00 [facility] Pneumovax (PPSV23) Pneumovax (PPSV23) 2021-03-30 Completed Common Spirit 14:37:00 [facility] Pneumovax (PPSV23) Pneumovax (PPSV23) 2021-03-30 Completed Common Spirit 14:37:00 [facility] Pneumovax (PPSV23) Pneumovax (PPSV23) 2021-03-30 Completed Common Spirit 14:37:00 [facility] Pneumovax (PPSV23) Pneumovax (PPSV23) 2021-03-30 Completed Common Spirit 14:37:00 [facility] Pneumovax (PPSV23) Pneumovax (PPSV23) 2021-03-30 Completed Common Spirit 14:37:00 [facility] Pneumovax (PPSV23) Pneumovax (PPSV23) 2021-03-30 Completed Common Spirit 14:37:00 [facility] Pneumovax (PPSV23) Pneumovax (PPSV23) 2021-03-30 Completed Common Spirit 14:37:00 [facility] Pneumovax (PPSV23) Pneumovax (PPSV23) 2021-03-30 Completed Common Spirit 14:37:00 [facility] Pneumovax (PPSV23) Pneumovax (PPSV23) 2021-03-30 Completed Common Spirit 14:37:00 [facility] Pneumovax (PPSV23) Pneumovax (PPSV23) 2021-03-30 Completed Common Spirit 14:37:00 [facility] Pneumovax (PPSV23) Pneumovax (PPSV23) 2021-03-30 Completed Common Spirit 14:37:00 [facility] Pneumovax (PPSV23) Pneumovax (PPSV23) 2021-03-30 Completed Common Spirit 14:37:00 [facility] Pneumovax (PPSV23) Pneumovax (PPSV23) 2021-03-30 Completed Common Spirit 14:37:00 [facility] Afluria single dose Afluria single dose 2020-06-12 Completed Common Spirit 15:26:00 [facility] Afluria single dose Afluria single dose 2020-06-12 Completed Common Spirit 15:26:00 [facility] Afluria single dose Afluria single dose 2020-06-12 Completed Common Spirit 15::00 [facility] Afluria single dose Afluria single dose 2020-06-12 Completed Common Spirit 15::00 [facility] Afluria single dose Afluria single dose 2020-06-12 Completed Common Spirit 15:26:00 [facility] Afluria single dose Afluria single dose 2020-06-12 Completed Common Spirit 15:26:00 [facility] Afluria single dose Afluria single dose 2020-06-12 Completed Common Spirit 15:26:00 [facility] Afluria single dose Afluria single dose 2020-06-12 Completed Common Spirit 15:26:00 [facility] Afluria single dose Afluria single dose 2020-06-12 Completed Common Spirit 15:26:00 [facility] Afluria single dose Afluria single dose 2020-06-12 Completed Common Spirit 15:26:00 [facility] Afluria single dose Afluria single dose 2020-06-12 Completed Common Spirit 15:26:00 [facility] Afluria single dose Afluria single dose 2020-06-12 Completed Common Spirit 15::00 [facility] Afluria single dose Afluria single dose 2020-06-12 Completed Common Spirit 15::00 [facility] Afluria single dose Afluria single dose 2020-06-12 Completed Common Spirit 15:: [facility] Afluria single dose Afluria single dose 2020-06-12 Completed Common Spirit 15:26:00 [facility] Afluria single dose Afluria single dose 2019-08-28 Completed Common Spirit 13:24:00 [facility] Afluria single dose Afluria single dose 2019-08-28 Completed Common Spirit 13:24:00 [facility] Afluria single dose Afluria single dose 2019-08-28 Completed Common Spirit 13:24:00 [facility] Afluria single dose Afluria single dose 2019-08-28 Completed Common Spirit 13:24:00 [facility] Afluria single dose Afluria single dose 2019-08-28 Completed Common Spirit 13:24:00 [facility] Afluria single dose Afluria single dose 2019-08-28 Completed Common Spirit 13:24:00 [facility] Afluria single dose Afluria single dose 2019-08-28 Completed Common Spirit 13:24:00 [facility] Afluria single dose Afluria single dose 2019-08-28 Completed Common Spirit 13:24:00 [facility] Afluria single dose Afluria single dose 2019-08-28 Completed Common Spirit 13:24:00 [facility] Afluria single dose Afluria single dose 2019-08-28 Completed Common Spirit 13:24:00 [facility] Afluria single dose Afluria single dose 2019-08-28 Completed Common Spirit 13:24:00 [facility] Afluria single dose Afluria single dose 2019-08-28 Completed Common Spirit 13:24:00 [facility] Afluria single dose Afluria single dose 2019-08-28 Completed Common Spirit 13:24:00 [facility] Afluria single dose Afluria single dose 2019-08-28 Completed Common Spirit 13:24:00 [facility] Afluria single dose Afluria single dose 2019-08-28 Completed Common Spirit 13:24:00 [facility] Vital Signs Vital Name Observation Time Observation Value Comments Source Systolic blood 2022-08-24 21:00:00 156 mm[Hg] Univer sity of pressure [facility] Diastolic blood 2022-08-24 21:00:00 97 mm[Hg] Unive rsity of pressure [place] [facility] Heart rate 2022-08-24 20:57:00 83 /min Universi ty of [place] [facility] Body temperature 2022-08-24 20:57:00 36.67 [place] Univ ersity of [place] [facility] Respiratory rate 2022-08-24 20:57:00 16 /min Univ ersity of [place] [facility] Body height 2022-08-24 20:57:00 170.2 cm Universi ty of [place] [facility] [place] Body weight 2022-08-24 20:57:00 104.781 kg Universi ty of [place] [facility] BMI 2022-08-24 20:57:00 36.18 kg/m2 Universi ty of [facility] Branch Oxygen saturation in 2022-08-24 20:57:00 96 /min University of Arterial blood by [facility] Pulse oximetry Branch Systolic blood 2022-08-03 20:16:00 155 mm[Hg] Univer sity of [facility] Diastolic blood 2022-08-03 20:16:00 96 mm[Hg] Unive rsity of [facility] Heart rate 2022-08-03 20:16:00 92 /min Universi ty [facility] [place] [facility] Body temperature 2022-08-03 20:15:00 37 [place]ette Univ ersity of [place] [facility] Respiratory rate 2022-08-03 20:15:00 18 /min [facility] ersity of [place] [facility] [place] Body height 2022-08-03 20:15:00 170.2 cm Universi ty of [place] [facility] [place] Body weight 2022-08-03 20:15:00 101.696 kg Universi ty of [place] [facility] [place] BMI 2022-08-03 20:15:00 35.11 kg/m2 Universi ty of [facility] Oxygen saturation in 2022-08-03 20:15:00 94 /min University of Arterial blood by [facility] Pulse oximetry Branch height 2022-07-29 15:20:00 65.5 [in_i] Common S pirit [facility] weight 2022-07-29 15:20:00 225.9 [lb_av] Common [facility] temperature 2022-07-29 15:20:00 97.7 [degF] [facility] bmi 2022-07-29 15:20:00 37.02 kg/m2 [facility] oximetry 2022-07-29 15:20:00 98 % [facility] respiratory rate 2022-07-29 15:20:00 18 /min Comm on [facility] blood pressure 2022-07-29 15:20:00 139 mm[Hg] Common [facility] - systolic [facility] blood pressure 2022-07-29 15:20:00 77 mm[Hg] Common [facility] - diastolic [facility] height 2022-05-04 11:20:00 65.5 [in_i] Common [facility] weight 2022-05-04 11:20:00 213 [lb_av] [facility] bmi 2022-05-04 11:20:00 34.9 kg/m2 [facility] height 2022-03-24 15:40:00 65.5 [in_i] [facility] weight 2022-03-24 15:40:00 213 [lb_av] [facility] temperature 2022-03-24 15:40:00 99.0 [degF] [facility] bmi 2022-03-24 15:40:00 34.9 kg/m2 [facility] oximetry 2022-03-24 15:40:00 95 % [facility] respiratory rate 2022-03-24 15:40:00 16 /min Comm on [facility] blood pressure 2022-03-24 15:40:00 134 mm[Hg] Common [facility] - systolic [facility] blood pressure 2022-03-24 15:40:00 88 mm[Hg] Common [facility] - diastolic [facility] Systolic blood 2022-01-15 15:31:00 145 mm[Hg] Univer sity of pressure [facility] Diastolic blood 2022-01-15 15:31:00 91 mm[Hg] Unive rsity of [facility] Heart rate 2022-01-15 15:31:00 90 /min Universi ty [facility] Oxygen saturation in 2022-01-15 15:31:00 95 /min [facility] blood by [facility] Pulse oximetry [facility] Body height 2022-01-15 15:22:00 167.6 cm Universi ty of [facility] Body weight 2022-01-15 15:22:00 100.2 kg Universi ty [facility] BMI 2022-01-15 15:22:00 35.65 kg/m2 Universi ty of [facility] height 2021-12-23 14:20:00 67 [in_i] [facility] weight 2021-12-23 14:20:00 215.5 [lb_av] [facility] temperature 2021-12-23 14:20:00 98.0 [degF] [facility] bmi 2021-12-23 14:20:00 33.75 kg/m2 [facility] oximetry 2021-12-23 14:20:00 96 % [facility] respiratory rate 2021-12-23 14:20:00 17 /min Comm on [facility] blood pressure 2021-12-23 14:20:00 132 mm[Hg] [facility] - systolic [facility] blood pressure 2021-12-23 14:20:00 87 mm[Hg] [facility] - diastolic [facility] Systolic blood 2021-12-21 20:39:00 153 mm[Hg] Univer sity of pressure [facility] Diastolic blood 2021-12-21 20:39:00 74 mm[Hg] Unive rsity of pressure [facility] Heart rate 2021-12-21 20:39:00 87 /min Universi ty [facility] Body height 2021-12-21 20:39:00 170.2 cm Universi ty [facility] Body weight 2021-12-21 20:39:00 63.05 kg Universi ty [facility] BMI 2021-12-21 20:39:00 21.77 kg/m2 Universi ty [facility] height 2021-07-02 14:20:00 67 [in_i] Common [facility] weight 2021-07-02 14:20:00 205 [lb_av] Common [facility] temperature 2021-07-02 14:20:00 98 [degF] Common [facility] bmi 2021-07-02 14:20:00 32.1 kg/m2 [facility] blood pressure 2021-07-02 14:20:00 128 mm[Hg] [facility] - systolic [facility] blood pressure 2021-07-02 14:20:00 78 mm[Hg] Common [facility] - diastolic [facility] Procedures Procedure Date / Time Performed Performing Clinician Sour e REFERRAL- 2022-07-06 06:01:00 Doctor Unassigned, No [facility] [place] REQUEST/RESPONSE Name [facility] SCANNED LAB RESULTS 2021-12-28 05:01:00 Doctor Unassigned, No [facility] [place] Name [facility] Encounters Start End Encounter Admission Attending Care Care Encounter Source Date/Time Date/Time Type Type Clinicians Facility Department ID 2022-10-25 Outpatient Jimenez, STLMLC STLMLC [id number] Common 14:53:01 Diana 89936 [facility] 2022-07-28 Outpatient Jimenez, STLMLC STLMLC [id number] Common 15:02:01 Diana 14686 [facility] 2022-06-29 Outpatient Jimenez, STLMLC STLMLC [id number] Common 15:13:00 Diana 34300 [facility] 2022-03-25 Outpatient Jimenez, STLMLC STLMLC [id number] Common 12:17:00 Diana [facility] 2022-03-04 Outpatient Jimenez, STLMLC STLMLC [id number] Common 13:08:00 Diana [facility] 2021-12-24 Outpatient Jimenez, STLMLC STLMLC [id number] Common 08:55:00 Diana [facility] 2021-10-21 Outpatient Jimenez, STLMLC STLMLC [id number] Common 10:55:01 Diana [facility] 2021-10-12 Outpatient Jimenez, STLMLC STLMLC [id number] Common 09:48:01 Diana [facility] 2021-10-08 Outpatient Jimenez, STLMLC STLMLC [id number] Common 11:48:01 Diana [facility] 2021-09-16 Outpatient Jimenez, STLMLC STLMLC [id number] Common 14:12:10 Diana [facility] 2021-09-16 Outpatient Jimenez, STLMLC STLMLC [id number] Common 13:35:35 Diana [facility] 2021-09-16 Outpatient Jimenez, STLMLC STLMLC [id number] Common 12:59:49 Diana [facility] 2021-09-16 Outpatient Jimenez, STLMLC STLMLC [id number] Common 12:53:40 Diana 74703 [facility] 2021-09-16 Outpatient Jimenez, STLMLC STLMLC [id number] Common 12:24:31 Diana 00952 [facility] 2021-09-16 Outpatient Jimenez, STLMLC STLMLC [id number] Common 11:58:12 Diana 87902 [facility] 2021-09-16 Outpatient Jimenez, STLMLC STLMLC [id number] Common 11:57:01 Diana 47506 [facility] 2021-09-16 Outpatient Jimenez, STLMLC STLMLC [id number] Common 11:32:27 Diana 49221 [facility] 2021-09-16 Outpatient Jimenez, STLMLC STLMLC [id number] Common 11:18:43 Diana 06582 [facility] 2021-09-16 Outpatient Jimenez, STLMLC STLMLC [id number] Common 11:17:53 Diana 74796 [facility] 2021-09-16 Outpatient Jimenez, STLMLC STLMLC [id number] Common 11:02:12 [facility] [address] [facility] 2022-09-13 2022-09-13 (TEL) STLMLC STLMLC [id number] Co mmon 00:00:00 00:00:00 Spirit - [facility] 2022-08-24 2022-08-24 Office Rocio Adriano [facility] [id number] Univers 15:00:00 15:15:00 Visit [facility] [id number] it [id number] [id number] [address] OFFICE BUILDING 2022-08-24 2022-08-24 Outpatient R ADRIANO [facility] [id number] Univers 15:00:00 15:00:00 cooper [facility] 2022-08-03 2022-08-03 [facility] [id number] Univers 14:30:00 14:46:13 FILOMENA gamboa [facility] 2022-08-03 2022-08-03 [facility] [id number] Univers 14:30:00 14:46:13 Visit Filomena MEZA [id number] i [id number] [facility] [id number] [address] 2022-07-29 2022-07-29 Outpatient [facility] [id number] Univers 14:30:00 14:30:00 FILOMENA gamboa [facility] 2022-07-29 2022-07-29 [facility] [id number] Co mmon 00:00:00 00:00:00 VISIT Spirit ESTAB PT - [facility]I L[facility]EL [facility] 2022-07-27 2022-07-27 Outpatient [facility] [id number] Univers 15:00:00 15:00:00 FILOMENA gamboa [facility] 2022-07-06 2022-07-06 Orders Doctor TOBAR [id number] Univers 00:00:00 00:00:00 Only Unassigned, AYSHA [id number] ity of [place] [facility] [id number] Rigoberto as [phone] [place] [address] [address] 2022-07-05 2022-07-05 (TEL) STLMLC STLMLC [id number] Co mmon 00:00:00 00:00:00 [facility] 2022-05-04 2022-05-04 OL DIG E/M STLMLC STLMLC [id number] Common 00:00:00 00:00:00 [facility] 11-20 Spir it [facility] 2022-05-04 2022-05-04 (TEL) STLMLC STLMLC [id number] Co mmon 00:00:00 00:00:00 [facility] 2022-05-03 2022-05-03 (TEL) STLMLC STLMLC [id number] Co mmon 00:00:00 00:00:00 [facility] 2022-04-05 2022-04-05 (TEL) STLMLC STLMLC [id number] Co mmon 00:00:00 00:00:00 [facility] 2022-03-30 2022-03-30 (TEL) STLMLC STLMLC [id number] Co mmon 00:00:00 00:00:00 [facility] 2022-03-24 2022-03-24 (WELLNESS) STLMLC STLMLC [id number] Common 00:00:00 00:00:00 Wellness Spiri t [facility] 2022-03-01 2022-03-01 (TEL) STLMLC STLMLC [id number] Co mmon 00:00:00 00:00:00 [facility] 2022-02-18 2022-02-18 (TEL) STLMLC STLMLC [id number] Co mmon 00:00:00 00:00:00 [facility] 2022-01-20 2022-01-20 Telephone THEA Krueger [id number] [facility] 00:00:00 00:00:00 Harinder L HEALTH [id number] it y of [place] [id number] Rigoberto as YOBANY?BLEA [id number] Me carol MOMIN [address] [place] MEDICAL OFFICE BUILDING 2022-01-15 2022-01-15 Office Pati [facility] [id number] Univers 11:00:00 11:32:20 Visit Harinder Somers HEALTH [id number] it y of [place] [id number] Rigoberto as YOBANY?BLEA [id number] Hi carol [address] MEDICAL OFFICE [facility] 2022-01-15 2022-01-15 [facility] [id number] Univers 11:00:00 11:32:20 HARINDERYOSELIN gamboa [facility] 2022-01-15 2022-01-15 Outpatient [facility] [id number] Univers 11:00:00 11:32:20 HARINDERYOSELIN gamboa [facility] 2022-01-15 2022-01-15 [facility] [id number] Univers 11:00:00 11:00:00 [facility] 2022-01-07 2022-01-07 Orders Doctor TOBAR [id number] Univers 00:00:00 00:00:00 Only Unassigned, AYSHA [id number] ity of [place] [facility] [id number] Rigoberto as [id number] [address] 2021-12-28 2021-12-28 Outpatient Th[facility] [id number] Univers 14:30:00 14:30:00 HARINDERYOSELIN gamboa [facility] 2021-12-28 2021-12-28 Outpatient Thi[facility] [id number] Univers 14:30:00 14:30:00 HARINDERYOSELIN gamboa [facility] 2021-12-28 2021-12-28 Outpatient Th[facility]ago [facility] [id number] Univers 14:30:00 14:30:00 HARINDER avelino [facility] 2021-12-28 2021-12-28 Orders Doctor AMADOU [id number] Univers 00:00:00 00:00:00 Only Unassigned, AYSHA [id number] ity of [facility] [id number] [place] as [phone] [address] 2021-12-23 2021-12-23 OFFICE STLC STLC [id number] Co mmon 00:00:00 00:00:00 VISIT [facility] PT - CHI LEVEL [facility] 2021-12-21 2021-12-21 Outpatient Thiago [facility] [id number] Univers 15:43:28 23:59:00 [facility] 2021-12-21 2021-12-21 Outpatient [facility] [id number] Univers 15:43:28 23:59:00 [facility] 2021-12-21 2021-12-21 Outpatient Th[facility] [id number] Univers 15:30:00 16:07:00 [facility] 2021-12-21 2021-12-21 Office [facility] [id number] Univers 15:30:00 16:07:00 Visit [facility] [id number] it y of [place] [id number] Rigoberto as YOBANY?BLEA [id number] [address] MEDICAL OFFICE BUILDING 2021-11-11 2021-11-11 (TEL) STLC STLC [id number] Co mmon 00:00:00 00:00:00 [facility] 2021-11-02 2021-11-02 (TEL) STLC STLMLC [id number] Co mmon 00:00:00 00:00:00 [facility] 2021-07-02 2021-07-02 OFFICE STLC STLC [id number] Co mmon 00:00:00 00:00:00 VISIT [facility] PT - CHI LEVEL [facility] 2021-03-30 2021-03-30 Outpatient STLC STLC [id number] Common 00:00:00 00:00:00 [facility] 2020-12-25 2020-12-25 Outpatient STLMLC STLMLC [id number] Common 00:00:00 00:00:00 [facility] 2020-09-18 2020-09-18 Outpatient STLMLC STLMLC [id number] Common 00:00:00 00:00:00 [facility] 2020-09-15 2020-09-15 Outpatient STLMLC STLMLC [id number] Common 00:00:00 00:00:00 [facility] 2020-06-12 2020-06-12 Outpatient STLMLC STLMLC [id number] Common 00:00:00 00:00:00 [facility] 2020-06-02 2020-06-02 Outpatient STLMLC STLMLC [id number] Common 00:00:00 00:00:00 [facility] 2020-03-25 2020-03-25 [facility] [id number] Common 15:00:00 15:00:[address] Sp[address] [facility] 2020-03-18 2020-03-18 Outpatient [facility] [id number] Common 16:51:00 16:51:[address] Sp[address] [facility] 2020-02-05 2020-02-05 [facility] [id number] Common 16:26:00 16:26:[address] Sp[address] [facility] 2019-12-11 2019-12-11 Out[facility] [id number] Common 13:15:00 13:15:[address] Sp[address] [facility] 2019-10-16 2019-10-16 [facility] [id number] Common 08:56:00 08:56:[address] Sp[address] [facility] 2019-10-12 2019-10-12 [facility] [id number] Common 09:41:00 09:41:[address] Sp[address] [facility] 2019-09-26 2019-09-26 Outpatient Mahamed Irbyt [id number] Common 09:14:00 09:14:[address] [employer] [address] Spir [address] [facility] 2019-09-11 2019-09-11 Outpatient Mahamed Irbyt [id number] Common 16:41:00 16:41:[address] Spir it [address] [facility] 2019-09-11 2019-09-11 Outpatient Mahamed Irbyt [id number] Common 14:45:00 14:45:[address] Sp[address] [facility] Results This patient has no known results.
[2023-02-04 01:47] LABS: Absolute Lymphocytes (CBC) 3.3 K/uL (0.7-4.9); Hematocrit 42.2 % (39.6-49.0); Lymphocytes % 43.3 % (15.3-44.8); MCV 90.7 fL (80-100); MPV 6.8 fL (7.6-11.3); RBC Red Blood Cell Count 4.65 M/uL (4.33-5.43)
[2023-02-04] MEDS ORDERED: KETOROLAC 30 MG/ML INJ ONE (01:49)
[2023-02-04] MEDS ORDERED: ONDANSETRON 4 MG/2 ML VIAL ONE (01:49)
[2023-02-04] MEDS ORDERED: LIDOCAINE 1% MPF 30 ML VIAL ONE (01:49)
[2023-02-04 02:02] LABS: Potassium 3.6 mEq/L (3.5-5.1)
[2023-02-04] MEDS ORDERED: NA CHLORIDE 0.9% 1,000 ML ONE (03:57)
--- NOTE | 2023-02-04 05:42 | EDPHYS ---
Physician Documentation [facility] Name: Dwayne Walker Jr Age: 52 yrs Sex: Male : 1970 Arrival Date: 02/04/2023 Time: 01:25 Bed 3 Private MD: ED Physician Artur Bazzi HPI: 02/04 05:04 This 52 yrs old Male presents to ER via EMS with complaints of Intoxication, sp4 head injury . 05:04 52-year-old male presents with alcohol intoxication, acute fall, acute head injury sp4 after he fell in the bathroom, contusion to posterior scalp and laceration to posterior scalp. EMS reports patient has had several beers at home fell in the bathroom subsequently called EMS. Patient denied LOC. History positive for DVT, hypertension, pulmonary embolism, umbilical hernia. Historical: - Home Meds: 01:49 Eliquis 5 mg Oral tablet [Active]; rv - PMHx: 01:49 DVT; Hypertension; Pulmonary Embolism; Umbilical hernia; rv - PSHx: 01:49 Leg surgery; rv - Immunization history:: Adult Immunizations up to date, Last tetanus immunization: up to date. - Social history:: Smoking status: unknown. - Family history:: not pertinent. ROS: 05:04 Constitutional: Negative for fever, chills, and weight loss, positive for alcohol sp4 intoxication, positive for head injury, positive for scalp laceration Eyes: Negative for injury, pain, redness, and discharge, ENT: Negative for injury, pain, and discharge, Neck: Negative for injury, pain, and swelling, Cardiovascular: Negative for chest pain, palpitations, and edema, Respiratory: Negative for shortness of breath, cough, wheezing, and pleuritic chest pain, Abdomen/GI: Negative for abdominal pain, nausea, vomiting, diarrhea, and constipation, Back: Negative for injury and pain, : Negative for injury, bleeding, discharge, and swelling, MS/Extremity: Negative for injury and deformity, Skin: Negative for rash, and discoloration, positive for injury and positive for scalp laceration Neuro: Negative for headache, weakness, numbness, tingling, and seizure, Psych: Negative for depression, anxiety, Allergy/Immunology: Negative for hives, rash, and allergies Endocrine: Negative for neck swelling, polydipsia, polyuria, polyphagia, and weight changes Hematologic/Lymphatic: Negative for swollen nodes, abnormal bleeding, and unusual bruising Exam: 05:04 Constitutional: This is a well developed, well nourished patient who is awake, alert, sp4 heavily intoxicated male,. Head/Face: Normocephalic, posterior scalp laceration, posterior scalp hematoma, laceration appears jagged and stellate Eyes: Pupils equal round and reactive to light, extra-ocular motions intact. Lids and lashes normal. Conjunctiva and sclera are not injected. Cornea within normal limits. Periorbital areas with no swelling, redness, or edema. ENT: Nares patent. No nasal discharge, no septal abnormalities noted. Tympanic membranes are normal and external auditory canals are clear. Oropharynx with no redness, swelling, or masses, exudates, or evidence of obstruction, uvula midline. Mucous membranes moist. Neck: Trachea midline, no thyromegaly or masses palpated, and no cervical lymphadenopathy. Supple, full range of motion without nuchal rigidity, or vertebral point tenderness. Chest/axilla: Normal chest wall appearance and motion. Nontender with no deformity. No lesions are appreciated. Cardiovascular: Regular rate and rhythm with a normal S1 and S2. No gallops, murmurs, or rubs. Normal PMI, no JVD. No pulse deficits. Respiratory: Lungs have equal breath sounds bilaterally, clear to auscultation and percussion. No rales, rhonchi or wheezes noted. No increased work of breathing, no retractions or nasal flaring. Abdomen/GI: Soft, non-tender, with normal bowel sounds. No distension or tympany. No guarding or rebound. No evidence of tenderness throughout. Back: No spinal tenderness. No costovertebral tenderness. Skin: Warm, dry with normal turgor. Normal color with no rashes, no lesions, and no evidence of cellulitis. There is posterior scalp laceration that is stellate MS/ Extremity: Pulses equal, no cyanosis. Neurovascular intact. Full, normal range of motion. Neuro: Awake and alert, GCS 15, oriented to person, place, time, and situation. Cranial nerves II-XII grossly intact. Motor strength 5/5 in all extremities. Sensory grossly intact. Psych: Awake, alert, with orientation to person, place and time. Patient is heavily intoxicated and emotionally upset Vital Signs: 01:47 BP 138 / 87; Pulse 83; Resp 17; Temp 98.4; Pulse Ox 100% on R/A; Weight 99.79 kg; rv Height 5 ft. 6 in. ; Pain 10/10; 03:15 BP 111 / 59; Pulse 78; Resp 18 S; Pulse Ox 93% on R/A; as6 05:30 BP 119 / 73; Pulse 78; Resp 17; Temp 98; Pulse Ox 99% ; rv 01:47 Body Mass Index 35.51 (99.79 kg, 167.64 cm) rv 01:47 Pain Scale: Adult rv Laceration: 05:37 Wound Repair of 4cm ( 1.6in ) subcutaneous laceration to Posterior scalp straight sp4 laceration horizontal orientation . Irregularly shaped.. Hemostasis noted.. Distal neuro/vascular/tendon intact. Anesthesia: Wound infiltrated with 20 mls of 1% lidocaine. Wound prep: Extensive cleansing by me, Copious irrigation. Skin closed with 7 3-0 Silk using interrupted sutures and sterile technique. Dressed with Left to air . Patient tolerated well. MDM: 01:41 Patient medically screened. sp4 05:37 Data reviewed: vital signs, nurses notes, EMS record, lab test result(s), CBC, sp4 electrolytes, radiologic studies, CT scan. Consideration of Admission/Observation Escalation of care including admission/observation considered. 05:37 Differential Diagnosis Alcohol intoxication, head injury, laceration, concussion, fall sp4 at home, neck injury. ED course: CT head and C-spine unremarkable, laceration repair, patient advised to discontinue use of alcohol, advised follow-up with certified physician assistant, sutures are sealed and will fall out by themselves, no suture removal is indicated, patient will be advised to see certified physician assistant, also engage in counseling for alcohol abuse and possibly visits with alcoholic Anonymous.. 02/04 01:28 Order name: Basic Metabolic Panel; Complete Time: 03:47 sp4 02/04 01:28 Order name: CBC with Diff; Complete Time: 03:47 sp4 02/04 01:28 Order name: Type And Screen; Complete Time: 03:47 sp4 02/04 01:42 Order name: Alcohol Level; Complete Time: 03:47 sp4 02/04 01:28 Order name: CT Head C Spine sp4 02/04 01:28 Order name: Labs collected and sent; Complete Time: 01:46 sp4 02/04 01:29 Order name: Dressing - Wound; Complete Time: :46 sp4 02/04 01:29 Order name: Gloves, Sterile; Complete Time: sp4 02/04 01:29 Order name: Setup Suture Tray; Complete Time: : sp4 Administered Medications: 01:46 Drug: Ketorolac IVP 30 mg Route: IVP; Site: right antecubital; rv 05:49 Follow up: Response: No adverse reaction rv 01:46 Drug: Ondansetron IVP 4 mg Route: IVP; Site: right antecubital; rv 05:49 Follow up: Response: No adverse reaction rv 03:51 Drug: NS 0.9% IV 1000 ml Route: IV; Rate: 1 bolus; Site: right antecubital; as6 05:49 Follow up: IV Status: Completed infusion; IV Intake: 1000ml rv 05:42 Drug: traMADol PO 100 mg Route: PO; rv 05:49 Follow up: Response: Medication administered at discharge. rv 05:42 Drug: Ondansetron PO 4 mg Route: PO; rv 05:49 Follow up: Response: Medication administered at discharge. rv Disposition Summary: 02/04/23 05:41 Discharge Ordered Location: Home sp4 Problem: new sp4 Symptoms: have improved sp4 Condition: Stable sp4 Diagnosis - Laceration without foreign body of scalp sp4 - Alcohol abuse with intoxication sp4 - Acute fall at home, acute head injury, posterior head contusion, scalp contusion sp4 with laceration initial encounter Followup: sp4 - With: Private Physician - When: 7 - 10 days - Reason: Recheck today's complaints Discharge Instructions: - Discharge Summary Sheet sp4 - Laceration Care, Adult, [id number] sp4 - Alcohol Abuse and Dependence Information, Adult sp4 Signatures: Dispatcher [employer] EDDylan Mckeon RN RN Jorge Brewer RN RN as6 Potepalov, Sergey, MD MD sp4
--- NOTE | 2023-02-04 05:42 | ER ---
Nurse's Notes [facility] Name: Dwayne Walker Jr Age: 52 yrs Sex: Male : 1970 Arrival Date: 02/04/2023 Time: 01:25 Bed 3 Private MD: Diagnosis: Laceration without foreign body of scalp;Alcohol abuse with intoxication;Acute fall at home, acute head injury, posterior head contusion, scalp contusion with laceration initial encounter Presentation: 02/04 01:47 Chief complaint: EMS states: PT WAS TRYING TO GET IN THE SHOWER AND FELL ON HIS BACK rv HITTING HIS HEAD ON THE TOILET. NO LOC. ADMITTED DRINKING ALCOHOL TONIGHT. COMPLAINING OF HEADACHE AND DIZZINESS. WITH LACERATION TO THE HEAD. Coronavirus screen: Vaccine status: Patient reports receiving the 2nd dose of the covid vaccine. Ebola Screen: Patient negative for fever greater than or equal to 101.5 degrees Fahrenheit, and additional compatible Ebola Virus Disease symptoms Patient denies exposure to infectious person. Patient denies travel to an Ebola-affected area in the 21 days before illness onset. Initial Sepsis Screen: Does the patient meet any 2 criteria? No. Patient's initial sepsis screen is negative. Does the patient have a suspected source of infection? No. Patient's initial sepsis screen is negative. Risk Assessment: Do you want to hurt yourself or someone else? Patient reports no desire to harm self or others. Onset of symptoms was February 04, 2023. 01:47 Method Of Arrival: EMS: [facility] rv 01:47 Acuity: FÉLIX 2 rv Triage Assessment: 01:49 General: Appears uncomfortable, Behavior is calm, cooperative. Pain: Complains of pain rv in scalp. Neuro: Level of Consciousness is awake, alert, obeys commands, Oriented to person, place, time. Cardiovascular: Patient's skin is warm and dry. Respiratory: Airway is patent. GI: No signs and/or symptoms were reported involving the gastrointestinal system. : No signs and/or symptoms were reported regarding the genitourinary system. Historical: - Home Meds: 01:49 Eliquis 5 mg Oral tablet [Active]; rv - PMHx: 01:49 DVT; Hypertension; Pulmonary Embolism; Umbilical hernia; rv - PSHx: 01:49 Leg surgery; rv - Immunization history:: Adult Immunizations up to date, Last tetanus immunization: up to date. - Social history:: Smoking status: unknown. - Family history:: not pertinent. Screenin:50 [facility] ED Fall Risk Assessment (Adult) History of falling in the last 3 months, rv including since admission Yes- single mechanical fall (1 pt) Confusion or Disorientation Yes (5 pts) Intoxicated or Sedated Yes (3 pts) Impaired Gait Yes (1 pt) Mobility Assist Device Used No (0 pt) Altered Elimination No (0 pt) Score/Fall Risk Level 3 or more points = High Risk Oriented to surroundings, Maintained a safe environment, Educated pt \T\ family on fall prevention, incl call for assistance when getting out of bed, Assessed \T\ reinforced patient's understanding of fall precautions, Provided non-skid footwear, Hourly rounding (assess needs \T\ fall precautionary measures) done, Used ambulatory aids as needed (educated on \T\ assisted with), Used gait belt as appropriate Implemented a Fall Risk Plan of Care, Apply high fall risk patient identification: yellow non skid footwear/ fall signage, Placed fall mat w/ non beveled edge next to bed, Activated bed/chair alarm, Remained w/in arm's length of patient and in sight while toileting, Offered frequent toileting (1:1 observation), Remained with patient while ambulating, Utilized family, sitter, or virtual enrichment teacher as indicated. 01:50 Abuse screen: Denies threats or abuse. Denies injuries from another. Nutritional rv screening: No deficits noted. Tuberculosis screening: No symptoms or risk factors identified. Vital Signs: 01:47 BP 138 / 87; Pulse 83; Resp 17; Temp 98.4; Pulse Ox 100% on R/A; Weight 99.79 kg; rv Height 5 ft. 6 in. ; Pain 10/10; 03:15 BP 111 / 59; Pulse 78; Resp 18 S; Pulse Ox 93% on R/A; as6 05:30 BP 119 / 73; Pulse 78; Resp 17; Temp 98; Pulse Ox 99% ; rv 01:47 Body Mass Index 35.51 (99.79 kg, 167.64 cm) rv 01:47 Pain Scale: Adult rv ED Course: :28 Patient arrived in ED. sb4 01:28 Artur Bazzi MD is Attending Physician. sp4 01:30 Inserted saline lock: 20 gauge in right antecubital area, using aseptic technique. rv Blood collected. 01:33 Dylan Ochoa, RN is Primary Nurse. rv 01:47 Basic Metabolic Panel Sent. rv 01:47 CBC with Diff Sent. rv 01:47 Type And Screen Sent. rv 01:49 Triage completed. rv 01:50 Patient has correct armband on for positive identification. Placed in gown. Bed in low rv position. Call light in reach. Side rails up X 1. 01:51 Arm band placed on right wrist. rv 02:08 CT Head C Spine In Process Unspecified. EDMS 05:50 Assist provider with laceration repair on back of head that was between 2.6 to 7.5 cm rv using sutures. Set up tray. Performed by Artur Bazzi MD Dressed with 4X4s, Kerlix, Patient tolerated well. IV discontinued, intact, bleeding controlled, No redness/swelling at site. Pressure dressing applied. Administered Medications: 01:46 Drug: Ketorolac IVP 30 mg Route: IVP; Site: right antecubital; rv 05:49 Follow up: Response: No adverse reaction rv 01:46 Drug: Ondansetron IVP 4 mg Route: IVP; Site: right antecubital; rv 05:49 Follow up: Response: No adverse reaction rv 03:51 Drug: NS 0.9% IV 1000 ml Route: IV; Rate: 1 bolus; Site: right antecubital; as6 05:49 Follow up: IV Status: Completed infusion; IV Intake: 1000ml rv 05:42 Drug: traMADol PO 100 mg Route: PO; rv 05:49 Follow up: Response: Medication administered at discharge. rv 05:42 Drug: Ondansetron PO 4 mg Route: PO; rv 05:49 Follow up: Response: Medication administered at discharge. rv Medication: 01:51 VIS not applicable for this client. rv Intake: 05:49 IV: 1000ml; Total: 1000ml. rv Outcome: 05:41 Discharge ordered by MD. sp4 05:50 Discharged to home ambulatory, via wheelchair. rv 05:50 Condition: improved 05:50 Discharge instructions given to patient, Instructed on discharge instructions, follow up and referral plans. wound care, Demonstrated understanding of instructions, follow-up care, wound care. 05:51 Patient left the ED. rv Signatures: Dispatcher [employer] EDDylan Mckeon RN RN Jorge Brewer RN RN asHattie Palencia PA-C PA-C sb4 Artur Bazzi MD MD sp4
[2023-02-04] MEDS ORDERED: TRAMADOL HCL 50 MG TAB ONE (05:48)
[2023-02-04] MEDS ORDERED: ONDANSETRON 4 MG (ODT) TAB ONE (05:49)
[2023-02-04 06:17] VITALS: BP 119/73; TEMP 98; O2SAT 99
--- NOTE | 2023-02-04 15:18 | RAD REPORT ---
EXAM DESCRIPTION: CT - Head C Spine Mpr Wo Con - 02/04/2023 4:05 am CLINICAL HISTORY: The patient is 52 years old and is Male; head injury TECHNIQUE: Axial computed tomography images of the head/brain and cervical spine without intravenous contrast. Sagittal and coronal reformatted images were created and reviewed. This CT exam was pe rformed using one or more of the following dose reduction techniques: automated exposure control, a djustment of the mA and/or kV according to patient size, and/or use of iterative reconstruction techn ique. COMPARISON: No relevant prior studies available. FINDINGS: Brain: Unremarkable. No hemorrhage. No significant white matter disease. No edema. Ventricles: Unremarkable. No ventriculomegaly. Skull: Left maxillary sinus mucosal thickening. No acute fracture. Sinuses: See above. Mastoid air cells: Unremarkable as visualized. No mastoid effusion. Vertebrae: See below. Discs/spinal canal/neural foramina: Multilevel disc space narrowing with degenerative end plate c hanges. Disc osteophyte complex causing moderate spinal canal narrowing at C3-4. Moderate bilateral neural foraminal narrowing at C4-5. Soft tissues: Unremarkable. IMPRESSION: No acute intracranial abnormality. No acute findings in the cervical spine. Electronically signed by: Jatinder Riley MD 02/04/2023 2:33 AM CDT Due to temporary technical issues with the PACS/Fluency reporting system, reports are being signed by the in house radiologists without review as a courtesy to insure prompt reporting. The interpreting radiologist is fully responsible for the content of the report.
== END 2023-02-04 05:51 | disposition home or self-care (01) ==
LOC: ER 01:25
PROC: 0HQ0XZZ Repair Scalp Skin, External Approach (ICD-10-PCS; principal; 2023-02-04)
DX: S01.01XA Laceration without foreign body of scalp, initial encounter (principal); F10.129 Alcohol abuse with intoxication, unspecified; W19.XXXA Unspecified fall, initial encounter; Y92.009 Unspecified place in unspecified non-institutional (private) residence as the place of occurrence of the external cause; I10 Essential (primary) hypertension; Z86.718 Personal history of other venous thrombosis and embolism; Z79.01 Long term (current) use of anticoagulants
CPT/HCPCS: 96361; 85025; 80048; 36415; 86900; 86850; 86901; 70450; 72125; 96375; 96374; 99285; 82077; 12002; Q0162; J2001; J2405; J7030

== ENCOUNTER 2023-02-10 09:23 | Day surgery (SDC) | payer OTHER ==
[2023-02-02 09:35] LABS: Potassium 4.4 mEq/L (3.5-5.1)
[2023-02-10] MEDS ORDERED: CEFAZOLIN SODIUM 2 GM/VIAL ONE (09:53)
[2023-02-10] MEDS ORDERED: propofoL 200 MG/20 ML VIAL IV ONE (10:03)
[2023-02-10] MEDS ORDERED: LIDOCAINE 1% MPF 5 ML VIAL ONE (10:03)
[2023-02-10] MEDS ORDERED: FENTANYL CITR 100 MCG/2 ML ONE (10:03)
[2023-02-10] MEDS ORDERED: MIDAZOLAM HCL 2 MG/2 ML INJ ONE (10:04)
[2023-02-10] MEDS ORDERED: GLYCOPYRROLATE 0.2 MG/ML SYR ONE (10:04)
[2023-02-10] MEDS ORDERED: dexAMETHasone 4 MG/ML VIAL ONE (10:04)
[2023-02-10] MEDS ORDERED: ONDANSETRON 4 MG/2 ML VIAL ONE (10:05)
[2023-02-10] MEDS ORDERED: NEOSTIGMINE 1 MG/ML -10 ML VIAL ONE (10:05)
[2023-02-10] MEDS ORDERED: ROCURONIUM 50 MG/5 ML VIAL IV ONE (10:05)
[2023-02-10] MEDS: NA CHLORIDE 0.9% 1,000 ML ONE ×2 (10:05→10:20)
[2023-02-10] MEDS ORDERED: KETOROLAC 30 MG/ML INJ ONE (10:05)
[2023-02-10] MEDS ORDERED: BUPIVACAINE 0.25% PF 30 ML VIAL ONE (10:07)
--- NOTE | 2023-02-10 11:42 | P.OP ---
Milk Route Deliverer: TANNA LONG Preoperative diagnosis: Umbilical Hernia Postoperative diagnosis: Umbilical Hernia Primary procedure: Laparoscopic Umbilical Hernia Repair with mesh Anesthesia: GETA + Local Estimated blood loss: <5cc Specimen: none Findings: ~2cm umbilical hernia, incarcerated omentum Complications: None Implants: Bard Ventralite ST mesh with echo, sorbafix tacks x 45 Transferred to: Recovery Room Condition: Good
[2023-02-10] MEDS: HYDROMORPHONE HCL 2 MG/ML inj ONE ×4 (11:56→12:43)
[2023-02-10] MEDS ORDERED: PROMETHAZINE INJ 25 MG/ML AMP ONE (12:27)
[2023-02-10 12:29] VITALS: O2SAT 95
[2023-02-10] MEDS ORDERED: NA CHLORIDE 0.9% 1,000 ML ONE (12:55)
[2023-02-10] MEDS ORDERED: HYDROCODONE/APAP 10/325 TAB ONE (13:48)
[2023-02-10 14:30] VITALS: BP 134/79; TEMP 98.2
--- NOTE | 2023-02-10 22:05 | OP ---
Date of Procedure: 02/10/2023 Surgeon: Vinayak Wagner MD, Traffic Sign Erection Supervisor: Melva Alonzo. Preoperative Diagnosis: Umbilical hernia. Postoperative Diagnosis: Umbilical hernia. Procedure Performed: Laparoscopic umbilical hernia repair with mesh. Anesthesia: General endotracheal plus local with 0.25% Marcaine. Estimated Blood Loss: Less than 5 cc. Specimen: None. Findings: 2 cm umbilical hernia, incarcerated omentum. Complications: None. Implants: Bard Ventralight ST mesh 11.4 cm round with Echo Positioning System and SorbaFix absorbabl e fixation tacks x45 tacks. Disposition: Patient was transferred to recovery room in good condition. Procedure In Detail: After informed consent was obtained, patient was brought to the operating room, prepped and draped in the usual sterile fashion. After adequate anesthesia was achieved, I anesthet ized an area in the left upper quadrant down to subcutaneous tissues. I placed a 5 mm 0-degree optic al trocar in the abdomen without complication. Insufflation was obtained at 15 mmHg at this time. T here was no injury to vital structures upon entry to the abdomen. Additional trocar was placed in th e left lower quadrant. Similarly anesthetized, sharply incised and a 12 mm trocar was placed under d irect vision without evidence of complication. At this time, I grasped the omentum, which was incarc erated in the umbilical position. I reduced it using gentle manual traction. No additional hemostat ic maneuvers required. I then inspected the hernia defect, which was approximately 2 cm in size. I brought the Endo stitch with 0 V-Loc and closed the defect primarily running in a baseball stitch fas hion imbricating the hernia sac to eliminate the space. At this point, after good apposition of tissue was achieved, I brought an 11.4 cm Bard Ventralight mesh with Echo Positioning System, made a small stab incision in the supraumbilical position, deployed the mesh and secured the mesh to the an terior abdominal wall using a single crown of SorbaFix absorbable fixation tacks. At this point, the balloon deployment system was removed, found to be intact on the back table. At this point, I place d a total of 45 tacks to the anterior abdominal wall securing the mesh in double crown type orientati on to the anterior bowel wall with good approximation of tissues. I inspected the area of hemostasis . No hemostatic measures required. I then closed the 12 mm trocar site with a SageDawood sutur e passer with 0 Vicryl in an interrupted fashion with good approximation of tissues. The abdomen was completely desufflated under direct visualization without complication. No additional hemostatic me asures required. After trocars were removed, all skin incisions were then copiously irrigated and cl osed with a 4-0 Monocryl fashion and Dermabond placed over top. Patient tolerated the procedure well without evidence of complication and transferred to PACU in good condition. All counts were correct at the end of the case. MARVIN/PATRICK Voice ID: [id number] Report ID: [id number]
== END 2023-02-10 14:09 | disposition home or self-care (01) ==
LOC: OR 09:23
PROVIDERS: ATTEND Surgery
PROC: 0WUF4JZ Supplement Abdominal Wall with Synthetic Substitute, Percutaneous Endoscopic Approach (ICD-10-PCS; principal; 2023-02-10 11:00)
DX: K42.9 Umbilical hernia without obstruction or gangrene (principal)
CPT/HCPCS: 80048; 36415; 82947 ×2; 49591; J2550; J2704; J1100; J2710; J2001; J2250; J1170; J3010; J2405; J7030 ×2; C1781

== ENCOUNTER 2023-02-18 15:30 | Emergency (ER) | payer OTHER ==
--- OUTSIDE RECORDS SUMMARY | 2023-02-18 15:35 | XMS REPORT | Continuity of Care Document ---
:1970 Author Organization [facility] t Address [address] [place] [address] [place] [id number] Care Team Providers Name Role Phone DIANA JIMENEZ Primary Care Physician Unavailable Diana Jimenez Attending Clinician Unavailable ADRIANO ALEXANDER Attending Clinician Unavailable Adriano Alexander MD Attending Clinician FILOMENA DARBY Attending Clinician Unavailable Filomena Darby MD Attending Clinician Doctor Unassigned, [place] Attending Clinician Unavailable Harinder Krueger MD Attending Clinician HARINDER KRUEGER Attending Clinician Unavailable Payers Payer Name Policy Type Policy Number Effective Date Expiration Date Abbey mendoza [facility] 2 [id number] 2022 Common 00:00:00 [facility] [employer] [id number] 2019 Common (Medicaid) 00:00:00 [facility] Problems Condition Condition Condition Status Onset Resolution Last Treating Co mments Source Name Details Category Date Date Treatment Clinician Date Dyslipidem Dyslipidem Disease Active U nivers ia ia -18 ity of 00:00: [address] Essential Essential Disease Active Uni vers hypertensi hypertensi -06 it y of on on 00:00: [address] Chronic Chronic Disease Active Univers deep vein deep vein 04-27 [place]y [place] (DVT[place] of 00 Medica l popliteal popliteal Bran ch vein vein Chronic Chronic Disease Active Univers pulmonary pulmonary 04-27 ity of embolism embolism 00:00: [place] [address] Medical Branch No known No known Disease Unive rs active active ity of problems problems [facility] [id number] Body mass Problem Com mon index Spirit [BMI] - [facility] 34.0-34.9, [facility] [id number] Other Problem Common obesity Spirit due to - [facility] excess [facility] [id number] History of Problem Co mmon pulmonary Spirit embolism - [facility] [id number] Peripheral Problem Com mon polyneurop Spirit athy [facility] [id number] HTN, goal Problem Comm on below Spirit 140/90 [facility] [id number] Generalize Problem Com mon d anxiety [facility] disorder [facility] [id number] Alcohol Problem Common abuse Spirit [facility] [id number] GERD Problem Common without Spirit esophagiti - [facility] [id number] Other Problem Common chronic Spirit pain [facility] [id number] Mixed Problem Common hyperlipid Spirit emia [facility] [id number] Depression Problem Co mmon with Spirit anxiety - [facility] Allergies, Adverse Reactions, Alerts Allergy Allergy Status Severity Reaction(s) Onset Inactive Treating Comm ents Source Name Type Date Date Clinician NO KNOWN Drug Active Univers ALLERGIE Class ity of [facility] Social History Social Habit Start Date Stop Date Quantity Comments Source History SDOH University o f Alcohol Std [place] [facility] Drinks Branch History SDOH University o f Alcohol Binge [facility] al [place] History of Common Spirit - Tobacco Use [facility] Sex Assigned At Common Sp valerie - [facility] Exposure to 2022-08-14 2022-08-24 Not sure University of SARS-CoV-2 00:00:00 14:49:00 [facility] [place] [facility] (event) [place] Alcohol intake 2022-08-03 2022-08-03 Lifetime University of 00:00:00 00:00:00 non-drinker [facility] [place] [facility] (finding) [place] Tobacco use and 2022-08-03 2022-08-03 Smokeless tobacco Un iversity of exposure 00:00:00 00:00:00 non-user [facility] [place] [facility] History SDOH 2021-12-21 2021-12-21 1 University o f Alcohol Frequency 00:00:00 00:00:00 [facility] edical Branch Alcohol Comment 2018-04-27 2018-04-27 3 glasses of Univers ity of 00:00:00 00:00:00 liquor /5 days a [facility] dical week Branch Smoking Status Start Date Stop Date Source Never smoked tobacco [facility] Medications Ordered Filled Start Stop Current Ordering Indication Dosage Frequency Signature Comments Components Source Medication Medication Date Date Medication? Clinician (SIG) Name Name hydroCHLORO 2021-08 Yes 12.5mg Take 12.5 Univers thiazide 2-13 mg by ity of 12.5 mg 14:20: mouth [place] capsule daily. Medical Branch acetaminoph 2021-08 Yes Take by Uni vers en with 2-13 mouth ity of codeine 14:20: every 6 [place] (TYLENOL-CO (six) Medical DEINE #3 hours as Branch ORAL) needed (Pain). apixaban 2021-08 Yes 5mg Take 5 mg Un [...] 2-13 by mouth ity of 14:20: daily. [place] [facility] hydroCHLORO 2021-08 Yes 12.5mg Take [...] mouth ity of 14:20: daily. Medical Branch pantoprazol 2021-08 Yes 40mg Take 40 mg Univers e 40 mg EC -29 by mouth ity o f tablet 00:00: in the [place] morning. Medical Branch pantoprazol 2021- Yes 40mg Take 40 mg Univers e 40 mg EC 1-29 by mouth ity o f tablet 00:00: in the [place] morning. Medical Branch pantoprazol 2021- Yes 40mg Take 40 mg Univers e 40 mg EC 1-29 by mouth ity o f tablet 00:00: in the [place] morning. Medical Branch pantoprazol 2021- Yes 40mg Take 40 mg Univers e 40 mg EC 1-29 by mouth ity o f tablet 00:00: in the [place] morning. Medical Branch hydrOXYzine 2021- Yes TAKE 1 Univ ers 25 mg 1-21 TABLET BY ity of tablet 00:00: MOUTH [place] EVERY 8 Medical HOURS Branch NEEDED FOR ANXIETY hydrOXYzine 2021-08 Yes TAKE 1 Univ ers 25 mg 1-21 TABLET BY ity of tablet 00:00: MOUTH [place] EVERY 8 Medical HOURS Branch NEEDED FOR ANXIETY hydrOXYzine 2021-08 Yes TAKE 1 Univ ers 25 mg 1-21 TABLET BY ity of tablet 00:00: MOUTH [place] 00 EVERY 8 Medical HOURS Branch NEEDED FOR ANXIETY hydrOXYzine 2021-08 Yes TAKE 1 Univ ers 25 mg 1-21 TABLET BY ity of tablet 00:00: MOUTH [place] 00 EVERY 8 Medical HOURS Branch NEEDED FOR ANXIETY methylPREDN 2021-0 Yes [id number] 84mg Take 21 Univers ISolone 5-27 tablets by ity of (MEDROL, 00:00: mouth [place] RITU,) 4 mg 00 SEE-INSTRU Med ical tablets CTIONS. Branch follow package directions methylPREDN 2022-0 Yes [id number] 84mg Take 21 Univers ISolone 5-27 tablets by ity of (MEDROL, 00:00: mouth [place] RITU,) 4 mg 00 SEE-INSTRU Med ical tablets CTIONS. Branch follow package directions methylPREDN 2022-0 Yes [id number] 84mg Take 21 Univers ISolone 5-27 tablets by ity of (MEDROL, 00:00: mouth [place] RITU,) 4 mg 00 SEE-INSTRU Med ical tablets CTIONS. Branch follow package directions methylPREDN 2-0 Yes [id number] 84mg Take 21 Univers ISolone 5-27 tablets by ity of (MEDROL, 00:00: mouth [place] RITU,) 4 mg 00 SEE-INSTRU Med ical tablets CTIONS. Branch follow package directions methylPREDN 2021-0 Yes [id number] 84mg Take 21 Univers ISolone 5-27 tablets by ity of (MEDROL, 00:00: mouth [place] RITU,) 4 mg 00 SEE-INSTRU Med ical tablets CTIONS. Branch follow package directions methylPREDN 2021-0 Yes [id number] 84mg Take 21 Univers ISolone 5-27 tablets by ity of (MEDROL, 00:00: mouth [place] RITU,) 4 mg 00 SEE-INSTRU Med ical tablets CTIONS. Branch follow package directions methylPREDN 2021-0 Yes [id number] 84mg Take 21 Univers ISolone 5-27 tablets by ity of (MEDROL, 00:00: mouth [place] RITU,) 4 mg 00 SEE-INSTRU Med ical tablets CTIONS. Branch follow package directions colchicine 2021-0 2022- No [id number] .6mg Take 0.6 Univers 0.6 mg Cap 5-27 06-07 mg by ity of 00:00: 04:59 mouth 2 [place] 00 :00 (two) Medical times [place] daily for 10 days. colchicine 2021-0 2021- No [id number] .6mg Take 0.6 Univers 0.6 mg Cap 5-27 06-07 mg by ity of 00:00: 04:59 mouth 2 [place] 00 :00 ([facility]) Medical times [place] daily for 10 days. lisinopriL 0 Yes 40mg Take 40 mg U nivers 40 mg 3-21 by mouth ity of tablet 00:00: daily. [address] atorvastati 0 Yes 20mg Take 20 mg Univers n 20 mg 3-21 by mouth ity of tablet 00:00: daily. [address] ELIQUIS 5 0 Yes 5mg Take 5 mg Uni vers mg tablet 3-21 by mouth ity of 00:00: daily. [address] lisinopriL 0 Yes 40mg Take 40 mg U nivers 40 mg 3-21 by mouth ity of tablet 00:00: daily. [address] atorvastati 0 Yes 20mg Take 20 mg Univers n 20 mg 3-21 by mouth ity of tablet 00:00: daily. [address] ELIQUIS 5 0 Yes 5mg Take 5 mg Uni vers mg tablet 3-21 by mouth ity of 00:00: daily. [facility] Branch lisinopriL 0 Yes 40mg Take 40 mg U nivers 40 mg 3-21 by mouth ity of tablet 00:00: daily. [place] [facility] Branch atorvastati 0 Yes 20mg Take 20 mg Univers n 20 mg 3-21 by mouth ity of tablet 00:00: daily. [facility] Branch ELIQUIS 5 0 Yes 5mg Take 5 mg Uni vers mg tablet 3-21 by mouth ity of 00:00: daily. [place] [facility] Branch lisinopriL 0 Yes 40mg Take 40 mg U nivers 40 mg 3-21 by mouth ity of tablet 00:00: daily. [place] [facility] Branch atorvastati 0 Yes 20mg Take 20 mg Univers n 20 mg 3-21 by mouth ity of tablet 00:00: daily. [place] [facility] ELIQUIS 5 0 Yes 5mg Take 5 mg Uni vers mg tablet 3-21 by mouth ity of 00:00: daily. [place] [facility] Branch lisinopriL 0 Yes 40mg Take 40 mg U nivers 40 mg 3-21 by mouth ity of tablet 00:00: daily. [place] [facility] atorvastati 0 Yes 20mg Take 20 mg Univers n 20 mg 3-21 by mouth ity of tablet 00:00: daily. [place] [facility] ELIQUIS 5 0 Yes 5mg Take 5 mg Uni vers mg tablet 3-21 by mouth ity of 00:00: daily. [facility] Branch lisinopriL 0 Yes 40mg Take 40 mg U nivers 40 mg 3-21 by mouth ity of tablet 00:00: daily. [place] [facility] atorvastati 0 Yes 20mg Take 20 mg Univers n 20 mg 3-21 by mouth ity of tablet 00:00: daily. [place] [facility] ELIQUIS 5 0 Yes 5mg Take 5 mg Uni vers mg tablet 3-21 by mouth ity of 00:00: daily. [place] [facility] lisinopriL 2021-0 Yes 40mg Take 40 mg U nivers 40 mg 3-21 by mouth ity of tablet 00:00: daily. [place] [facility] atorvastati 0 Yes 20mg Take 20 mg Univers n 20 mg 3-21 by mouth ity of tablet 00:00: daily. [place] [facility] Branch ELIQUIS 5 0 Yes 5mg Take 5 mg Uni vers mg tablet 3-21 by mouth ity of 00:00: daily. [place] [facility] lisinopriL 0 Yes 40mg Take 40 mg U nivers 40 mg 3-21 by mouth ity of tablet 00:00: daily. [place] [facility] atorvastati 0 Yes 20mg Take 20 mg Univers n 20 mg 3-21 by mouth ity of tablet 00:00: daily. [place] [facility] ELIQUIS 5 0 Yes 5mg Take 5 mg Uni vers mg tablet 3-21 by mouth ity of 00:00: daily. [place] [facility] lisinopriL 0 Yes 40mg Take 40 mg U nivers 40 mg 3-21 by mouth ity of tablet 00:00: daily. [place] [facility] atorvastati 0 Yes 20mg Take 20 mg Univers n 20 mg 3-21 by mouth ity of tablet 00:00: daily. [place] [facility] ELIQUIS 5 0 Yes 5mg Take 5 mg Uni vers mg tablet 3-21 by mouth ity of 00:00: daily. [address] HydrOXYzine HydrOXYzine 2020-0 Yes Diana 1 tablet Common HCl HCl 8-04 Jimenez as needed Spirit 00:00: - [facility] Diphenhydra Diphenhydra 2020-0 No 25mg Common mine mine 1-07 Spirit 00:00: - [facility] Diphenhydra Diphenhydra 2020-0 No 25mg Common mine mine 1 Spirit 00:00: - [facility] Diphenhydra Diphenhydra 2020-0 No 25mg Common mine mine 1- Spirit 00:00: - CHI 00 [facility] Diphenhydra Diphenhydra 2020-0 No 25mg Common mine mine 1 Spirit 00:00: - CHI 00 [facility] Diphenhydra Diphenhydra 2020-0 No 25mg Common mine mine 1- Spirit 00:00: - CHI 00 [facility] Diphenhydra Diphenhydra 2020-0 No 25mg Common mine mine 1- Spirit 00:00: - CHI 00 [facility] Diphenhydra Diphenhydra 2020-0 No 25mg Common mine mine 08-28 Spirit 00:00: - CHI 00 [facility] Diphenhydra Diphenhydra 2020-0 No 25mg Common mine mine 08-28 Spirit 00:00: - CHI 00 [facility] Diphenhydra Diphenhydra 2020-0 No 25mg Common mine mine 08-28 Spirit 00:00: - CHI 00 [facility] Diphenhydra Diphenhydra 2020-0 No 25mg Common mine mine 08-28 Spirit 00:00: - CHI 00 [facility] Diphenhydra Diphenhydra 2020-0 No 25mg Common mine mine 08-28 Spirit 00:00: - CHI 00 [facility] Diphenhydra Diphenhydra 2020-0 No 25mg Common mine mine 08-28 Spirit 00:00: - CHI 00 [facility] Diphenhydra Diphenhydra 2020-0 No 25mg Common mine mine 08-28 Spirit 00:00: - CHI 00 [facility] Diphenhydra Diphenhydra 2020-0 No 25mg Common mine mine 08-28 Spirit 00:00: - [facility]I 00 [facility] acetaminoph 2017-08 Yes 1{tbl} Take 1 Un [...] 1-26 by mouth ity of 15:32: daily. [place] [address] Medical Branch hydroCHLORO 2017-08 Yes 12.5mg Take [...] 1-26 by mouth ity of 15:32: daily. [place] [address] Medical Branch hydroCHLORO 2017-08 Yes 12.5mg Take [...] 1-26 by mouth ity of 15:32: daily. [place] [address] Medical Branch hydroCHLORO 2017-08 Yes 12.5mg Take [...] 1 tablet Common Jimenez Spirit - [facility] Atorvastati Atorvastati Yes Diana 1 tablet Common n Calcium n Calcium Jimenez Spir it - [facility] Omeprazole Omeprazole Yes Diana 1 capsule Common Jimenez 30 minutes Spirit before - CHI morning [facility] Mcdade Mcdade Yes Diana 1 tablet Common Jimenez as needed Spirit - [facility] Eliquis Eliquis Yes Diana TAKE 1 Commo n Jimenez TABLET BY Spirit MOUTH - CHI EVERY DAY [facility] Lisinopril Lisinopril Yes Diana 1 tablet Common Jimenez Spirit - [facility] Cyclobenzap Cyclobenzap Yes Diana 1 tablet Common rine HCl rine HCl Jimenez as needed S pirit - [facility] Lisinopril Lisinopril Yes Diana TAKE 1 Common Jimenez TABLET BY Spirit MOUTH ONCE - CHI DAILY [facility] Eliquis 5 Eliquis 5 No 1{table QD Eliquis 5 MG MG t} MG Omeprazole Omeprazole No QD Omeprazole 40 MG 40 MG 40 MG Mcdade Mcdade No 1{table Mcdade 7.5-325 MG 7.5-325 MG t_as_ne 7.5-325 MG [...] Lisinopril 40 MG 40 MG 40 MG Mcdade Mcdade No 1{table Mcdade 7.5-325 MG 7.5-325 MG t_as_ne 7.5-325 MG [...] QD Eliquis 5 MG MG t} MG Mcdade Mcdade No 1{table Mcdade 7.5-325 MG 7.5-325 MG t_as_ne 7.5-325 MG [...] Calcium 20 MG 20 MG 20 MG Mcdade Mcdade No 1{table Mcdade 7.5-325 MG 7.5-325 MG t_as_ne 7.5-325 MG [...] Calcium 20 MG 20 MG 20 MG Mcdade Mcdade No 1{table Mcdade 7.5-325 MG 7.5-325 MG t_as_ne 7.5-325 MG [...] 40 MG 40 MG t} 40 MG Mcdade Mcdade No 1{table Mcdade 7.5-325 MG 7.5-325 MG t_as_ne 7.5-325 MG [...] 40 MG 40 MG t} 40 MG Mcdade Mcdade No 1{table Mcdade 7.5-325 MG 7.5-325 MG t_as_ne 7.5-325 MG [...] 40 MG 40 MG t} 40 MG Mcdade Mcdade No 1{table Mcdade 7.5-325 MG 7.5-325 MG t_as_ne 7.5-325 MG [...] 800 MG 800 MG t} 800 MG Mcdade Mcdade No 1{table Mcdade 7.5-325 MG 7.5-325 MG t_as_ne 7.5-325 MG [...] 800 MG 800 MG t} 800 MG Mcdade Mcdade No 1{table Mcdade 7.5-325 MG 7.5-325 MG t_as_ne 7.5-325 MG [...] 800 MG 800 MG t} 800 MG Mcdade Mcdade No 1{table Mcdade 7.5-325 MG 7.5-325 MG t_as_ne 7.5-325 MG [...] MG MG dtime_a 5 MG s_neede d} Mcdade Mcdade No 1{table Mcdade 7.5-325 MG 7.5-325 MG t_as_ne 7.5-325 MG [...] ISolone 4 NISolone 4 MG MG MG Mcdade Mcdade No 1{table Mcdade 7.5-325 MG 7.5-325 MG t_as_ne 7.5-325 MG [...] MG MG dtime_a 5 MG s_neede d} Mcdade Mcdade No 1{table Mcdade 7.5-325 MG 7.5-325 MG t_as_ne 7.5-325 MG [...] Calcium 20 MG 20 MG 20 MG Mcdade Mcdade No 1{table Mcdade 7.5-325 MG 7.5-325 MG t_as_ne 7.5-325 MG [...] Hui 2022-07-29 Completed Common Spirit 15:22:00 - [facility] Ez Hui 2022-07-29 Completed Common Spirit 15:22:00 [facility] Flucelvax - single Flucelvax - single 2022-07-29 Completed Common Spirit dose syringe dose syringe 15:21:00 - [facility] Flucelvax - single Flucelvax - single 2022-07-29 Completed Common Spirit dose syringe dose syringe 15:21:00 [facility] Pneumovax (PPSV23) Pneumovax (PPSV23) 2021-03-30 Completed Common Spirit 14:37:00 [facility] Pneumovax (PPSV23) Pneumovax (PPSV23) 2021-03-30 Completed Common Spirit 14:37:00 [facility] Pneumovax (PPSV23) Pneumovax (PPSV23) 2021-03-30 Completed Common [facility] 14:37:00 [facility] Pneumovax (PPSV23) Pneumovax (PPSV23) 2021-03-30 Completed Common [facility] 14:37:00 [facility] Pneumovax (PPSV23) Pneumovax (PPSV23) 2021-03-30 Completed Common [facility] 14:37:00 [facility] Pneumovax (PPSV23) Pneumovax (PPSV23) 2021-03-30 Completed Common [facility] 14:37:00 [facility] Pneumovax (PPSV23) Pneumovax (PPSV23) 2021-03-30 Completed Common [facility] 14:37:00 [facility] Pneumovax (PPSV23) Pneumovax (PPSV23) 2021-03-30 Completed Common [facility] 14:37:00 [facility] Pneumovax (PPSV23) Pneumovax (PPSV23) 2021-03-30 Completed Common [facility] 14:37:00 [facility] Pneumovax (PPSV23) Pneumovax (PPSV23) 2021-03-30 Completed Common [facility] 14:37:00 [facility] Pneumovax (PPSV23) Pneumovax (PPSV23) 2021-03-30 Completed Common [facility] 14:37:00 [facility] Pneumovax (PPSV23) Pneumovax (PPSV23) 2021-03-30 Completed Common [facility] 14:37:00 [facility] Pneumovax (PPSV23) Pneumovax (PPSV23) 2021-03-30 Completed Common [facility] 14:37:00 [facility] Pneumovax (PPSV23) Pneumovax (PPSV23) 2021-03-30 Completed Common [facility] 14:37:00 [facility] Pneumovax (PPSV23) Pneumovax (PPSV23) 2021-03-30 Completed Common [facility] 14:37:00 [facility] Afluria single dose Afluria single dose 2020-06-12 Completed Common [facility] 15:26:00 [facility] Afluria single dose Afluria single dose 2020-06-12 Completed Common [facility] 15:26:00 [facility] Afluria single dose Afluria single dose 2020-06-12 Completed Common Spirit 15::00 [facility] Afluria single dose Afluria single dose 2020-06-12 Completed Common Spirit 15::00 [facility] Afluria single dose Afluria single dose 2020-06-12 Completed Common [facility] 15:26:00 [facility] Afluria single dose Afluria single dose 2020-06-12 Completed Common [facility] 15:26:00 [facility] Afluria single dose Afluria single dose 2020-06-12 Completed Common [facility] 15:26:00 [facility] Afluria single dose Afluria single dose 2020-06-12 Completed Common [facility] 15:26:00 [facility] Afluria single dose Afluria single dose 2020-06-12 Completed Common [facility] 15:26:00 [facility] Afluria single dose Afluria single dose 2020-06-12 Completed Common [facility] 15:26:00 [facility] Afluria single dose Afluria single dose 2020-06-12 Completed Common [facility] 15:26:00 [facility] Afluria single dose Afluria single dose 2020-06-12 Completed Common Spirit 15::00 [facility] Afluria single dose Afluria single dose 2020-06-12 Completed Common [facility] 15::00 [facility] Afluria single dose Afluria single dose 2020-06-12 Completed Common [facility] 15:: [facility] Afluria single dose Afluria single dose 2020-06-12 Completed [facility] 15:26:00 [facility] Afluria single dose Afluria single dose 2019-08-28 Completed Common [facility] 13:24:00 [facility] Afluria single dose Afluria single dose 2019-08-28 Completed [facility] 13:24:00 [facility] Afluria single dose Afluria single dose 2019-08-28 Completed Common [facility] 13:24:00 [facility] Afluria single dose Afluria single dose 2019-08-28 Completed [facility] 13:24:00 [facility] Afluria single dose Afluria single dose 2019-08-28 Completed [facility] 13:24:00 [facility] Afluria single dose Afluria single dose 2019-08-28 Completed [facility] 13:24:00 [facility] Afluria single dose Afluria single dose 2019-08-28 Completed [facility] 13:24:00 [facility] Afluria single dose Afluria single dose 2019-08-28 Completed [facility] 13:24:00 [facility] Afluria single dose Afluria single dose 2019-08-28 Completed [facility] 13:24:00 [facility] Afluria single dose Afluria single dose 2019-08-28 Completed [facility] 13:24:00 [facility] Afluria single dose Afluria single dose 2019-08-28 Completed [facility] 13:24:00 [facility] Afluria single dose Afluria single dose 2019-08-28 Completed [facility] 13:24:00 [facility] Afluria single dose Afluria single dose 2019-08-28 Completed [facility] 13:24:00 [facility] Afluria single dose Afluria single dose 2019-08-28 Completed [facility] 13:24:00 [facility] Afluria single dose Afluria single dose 2019-08-28 Completed [facility] 13:24:00 [facility] Vital Signs Vital Name Observation Time Observation Value Comments Source Systolic blood 2022-08-24 21:00:00 156 mm[Hg] Univer sity of pressure [facility] [place] [facility] Diastolic blood 2022-08-24 21:00:00 97 mm[Hg] Unive rsity of pressure [place] [facility] Heart rate 2022-08-24 20:57:00 83 /min Universi ty of [place] [facility] Body temperature 2022-08-24 20:57:00 36.67 [place] Univ ersity of [place] [facility] Respiratory rate 2022-08-24 20:57:00 16 /min Univ ersity of [place] [facility] Body height 2022-08-24 20:57:00 170.2 cm Universi ty of [place] [facility] [place] Body weight 2022-08-24 20:57:00 104.781 kg Universi ty of [place] [facility] BMI 2022-08-24 20:57:00 36.18 kg/m2 Universi ty of [facility] [place] [facility] Branch Oxygen saturation in 2022-08-24 20:57:00 96 /min University of Arterial blood by [facility] Pulse oximetry Branch Systolic blood 2022-08-03 20:16:00 155 mm[Hg] Univer sity of [facility] Diastolic blood 2022-08-03 20:16:00 96 mm[Hg] Unive rsity of [facility] Heart rate 2022-08-03 20:16:00 92 /min Universi ty of [place] [facility] Body temperature 2022-08-03 20:15:00 37 [place] Univ ersity of [place] [facility] Respiratory rate 2022-08-03 20:15:00 18 /min [facility] ersity of [place] [facility] [place] Body height 2022-08-03 20:15:00 170.2 cm Universi ty of [place] [facility] [place] Body weight 2022-08-03 20:15:00 101.696 kg Universi ty of [place] [facility] [place] BMI 2022-08-03 20:15:00 35.11 kg/m2 Universi ty of [facility] [place] [facility] Oxygen saturation in 2022-08-03 20:15:00 94 /min University of Arterial blood by [facility] Pulse oximetry Branch height 2022-07-29 15:20:00 65.5 [in_i] Common S pirit [facility] weight 2022-07-29 15:20:00 225.9 [lb_av] [facility] temperature 2022-07-29 15:20:00 97.7 [degF] [facility] bmi 2022-07-29 15:20:00 37.02 kg/m2 [facility] oximetry 2022-07-29 15:20:00 98 % [facility] respiratory rate 2022-07-29 15:20:00 18 /min Comm on [facility] blood pressure 2022-07-29 15:20:00 139 mm[Hg] Common [facility] - systolic [facility] blood pressure 2022-07-29 15:20:00 77 mm[Hg] Common [facility] - diastolic [facility] height 2022-05-04 11:20:00 65.5 [in_i] Common [facility] weight 2022-05-04 11:20:00 213 [lb_av] [facility] bmi 2022-05-04 11:20:00 34.9 kg/m2 [facility] height 2022-03-24 15:40:00 65.5 [in_i] [facility] weight 2022-03-24 15:40:00 213 [lb_av] [facility] temperature 2022-03-24 15:40:00 99.0 [degF] [facility] bmi 2022-03-24 15:40:00 34.9 kg/m2 [facility] oximetry 2022-03-24 15:40:00 95 % [facility] respiratory rate 2022-03-24 15:40:00 16 /min Comm on [facility] blood pressure 2022-03-24 15:40:00 134 mm[Hg] Common [facility] - systolic [facility] blood pressure 2022-03-24 15:40:00 88 mm[Hg] Common [facility] - diastolic [facility] Systolic blood 2022-01-15 15:31:00 145 mm[Hg] Univer sity of pressure [facility] Diastolic blood 2022-01-15 15:31:00 91 mm[Hg] Unive [facility] Heart rate 2022-01-15 15:31:00 90 /min Universi ty [facility] Oxygen saturation in 2022-01-15 15:31:00 95 /min [facility] blood by [facility] Pulse oximetry [facility] height 2022-01-15 15:22:00 167.6 cm Universi ty of [facility] Body weight 2022-01-15 15:22:00 100.2 kg Universi ty [facility] BMI 2022-01-15 15:22:00 35.65 kg/m2 [facility] height 2021-12-23 14:20:00 67 [in_i] [facility] weight 2021-12-23 14:20:00 215.5 [lb_av] [facility] temperature 2021-12-23 14:20:00 98.0 [degF] [facility] bmi 2021-12-23 14:20:00 33.75 kg/m2 [facility] oximetry 2021-12-23 14:20:00 96 % [facility] respiratory rate 2021-12-23 14:20:00 17 /min Comm on [facility] blood pressure 2021-12-23 14:20:00 132 mm[Hg] [facility] - systolic [facility] blood pressure 2021-12-23 14:20:00 87 mm[Hg] [facility] - diastolic [facility] Systolic blood 2021-12-21 20:39:00 153 mm[Hg] Univer sity of pressure [facility] Diastolic blood 2021-12-21 20:39:00 74 mm[Hg] Unive rsity of pressure [facility] Heart rate 2021-12-21 20:39:00 87 /min Universi ty [facility] Body height 2021-12-21 20:39:00 170.2 cm Universi ty [facility] Body weight 2021-12-21 20:39:00 63.05 kg Universi ty [facility] BMI 2021-12-21 20:39:00 21.77 kg/m2 Universi ty [facility] height 2021-07-02 14:20:00 67 [in_i] Common [facility] weight 2021-07-02 14:20:00 205 [lb_av] Common [facility] temperature 2021-07-02 14:20:00 98 [degF] Common [facility] bmi 2021-07-02 14:20:00 32.1 kg/m2 [facility] blood pressure 2021-07-02 14:20:00 128 mm[Hg] [facility] - systolic [facility] blood pressure 2021-07-02 14:20:00 78 mm[Hg] Common [facility] - diastolic [facility] Procedures Procedure Date / Time Performed Performing Clinician Sour e REFERRAL- 2022-07-06 06:01:00 Doctor Unassigned, No [facility] [place] REQUEST[facility]RESPONSE Name [facility] SCANNED LAB RESULTS 2021-12-28 05:01:00 Doctor Unassigned, No [facility] [place] Name [facility] Encounters Start End Encounter Admission Attending Care Care Encounter Source Date/Time Date/Time Type Type Clinicians Facility Department ID 2022-10-25 Outpatient Jimenez, STLMLC STLMLC [id number] Common 14:53:01 Diana 87148 [facility] 2022-07-28 Outpatient Jimenez, STLMLC STLMLC [id number] Common 15:02:01 Diana 35485 [facility] 2022-06-29 Outpatient Jimenez, STLMLC STLMLC [id number] Common 15:13:00 Diana 86776 [facility] 2022-03-25 Outpatient Jimenez, STLMLC STLMLC [id number] Common 12:17:00 Diana [facility] 2022-03-04 Outpatient Jimenez, STLMLC STLMLC [id number] Common 13:08:00 Diana [facility] 2021-12-24 Outpatient Jimenez, STLMLC STLMLC [id number] Common 08:55:00 Diana [facility] 2021-10-21 Outpatient Jimenez, STLMLC STLMLC [id number] Common 10:55:01 Diana [facility] 2021-10-12 Outpatient Jimenez, STLMLC STLMLC [id number] Common 09:48:01 Diana [facility] 2021-10-08 Outpatient Jimenez, STLMLC STLMLC [id number] Common 11:48:01 Diana [facility] 2021-09-16 Outpatient Jimenez, STLMLC STLMLC [id number] Common 14:12:10 Diana [facility] 2021-09-16 Outpatient Jimenez, STLMLC STLMLC [id number] Common 13:35:35 Diana [facility] 2021-09-16 Outpatient Jimenez, STLMLC STLMLC [id number] Common 12:59:49 Diana [facility] 2021-09-16 Outpatient Jimenez, STLMLC STLMLC [id number] Common 12:53:40 Diana 54864 [facility] 2021-09-16 Outpatient Jimenez, STLMLC STLMLC [id number] Common 12:24:31 Diana 69059 [facility] 2021-09-16 Outpatient Jimenez, STLMLC STLMLC [id number] Common 11:58:12 Diana 08893 [facility] 2021-09-16 Outpatient Jimenez, STLMLC STLMLC [id number] Common 11:57:01 Diana 17415 [facility] 2021-09-16 Outpatient Jimenez, STLMLC STLMLC [id number] Common 11:32:27 Diana 79103 [facility] 2021-09-16 Outpatient Jimenez, STLMLC STLMLC [id number] Common 11:18:43 Diana 72291 [facility] 2021-09-16 Outpatient Jimenez, STLMLC STLMLC [id number] Common 11:17:53 Diana 27001 [facility] 2021-09-16 Outpatient Jimenez, STLMLC STLMLC [id number] Common 11:02:12 [facility] [id number] [facility] 2022-09-13 2022-09-13 (TEL) STLMLC STLMLC [id number] Co mmon 00:00:00 00:00:00 [facility] 2022-08-24 2022-08-24 Office Rocio Adriano RUST [id number] Univers 15:00:00 15:15:00 Visit [facility] [id number] it [id number] [phone] [address] OFFICE BUILDING 2022-08-24 2022-08-24 Outpatient R ADRIANO [facility]LEXANDER [facility] [id number] Univers 15:00:00 15:00:00 cooper [facility] 2022-08-03 2022-08-03 [facility] [id number] Univers 14:30:00 14:46:13 FILOMENA gamboa [facility] 2022-08-03 2022-08-03 [facility] [id number] Univers 14:30:00 14:46:13 Visit Filomena MEZA [id number] i [id number] [facility] [phone] [address] 2022-07-29 2022-07-29 [facility] [id number] Univers 14:30:00 14:30:00 FILOMENA gamboa [facility] 2022-07-29 2022-07-29 [facility] [id number] Co mmon 00:00:00 00:00:00 VISIT Spirit ESTAB PT - CHI LEVEL 4 [facility] 2022-07-27 2022-07-27 [facility] [id number] Univers 15:00:00 15:00:00 FILOMENA gamboa [facility] 2022-07-06 2022-07-06 Orders Doctor TOBAR [id number] Univers 00:00:00 00:00:00 Only Unassigned, AYSHA [id number] ity of [place] [facility] [id number] Irgoberto as [phone] [place] [address] [place] 2022-07-05 2022-07-05 (TEL) STLMLC STLMLC [id number] Co mmon 00:00:00 00:00:00 [facility] 2022-05-04 2022-05-04 OL DIG E/M STLMLC STLMLC [id number] Common 00:00:00 00:00:[address] [facility] 11-20 Spir it [facility] 2022-05-04 2022-05-04 (TEL) STLMLC STLMLC [id number] Co mmon 00:00:00 00:00:00 [facility] 2022-05-03 2022-05-03 (TEL) STLMLC STLMLC [id number] Co mmon 00:00:00 00:00:00 [facility] 2022-04-05 2022-04-05 (TEL) STLMLC STLMLC [id number] Co mmon 00:00:00 00:00:00 [facility] 2022-03-30 2022-03-30 (TEL) STLMLC STLMLC [id number] Co mmon 00:00:00 00:00:00 [facility] 2022-03-24 2022-03-24 (WELLNESS) STLMLC STLMLC [id number] Common 00:00:00 00:00:00 Wellness Spiri t [facility] 2022-03-01 2022-03-01 (TEL) STLMLC STLMLC [id number] Co mmon 00:00:00 00:00:00 [facility] 2022-02-18 2022-02-18 (TEL) STLMLC STLMLC [id number] Co mmon 00:00:00 00:00:00 [facility] 2022-01-20 2022-01-20 Telephone THEA Krueger [id number] [facility] 00:00:00 00:00:00 Harinder L HEALTH [id number] it y of [place] [id number] Rigoberto as YOBANY?BLEA [phone] Me carol MOMIN [address] MEDICAL OFFICE BUILDING 2022-01-15 2022-01-15 Office Pati RUST [id number] Univers 11:00:00 11:32:20 Visit Harinder Somers HEALTH [id number] it y of [place] [id number] Rigoberto as YOBANY?BLEA [id number] Dc carol [address] MEDICAL OFFICE [facility] 2022-01-15 2022-01-15 [facility] [id number] Univers 11:00:00 11:32:20 HARINDERYOSELIN gamboa [facility] 2022-01-15 2022-01-15 [facility]patient [facility] [id number] Univers 11:00:00 11:32:20 HARINDERYOSELIN gamboa [facility] 2022-01-15 2022-01-15 [facility] [id number] Univers 11:00:00 [facility]:00:00 [facility] 2022-01-07 2022-01-07 Orders Doctor TOBAR [id number] Univers 00:00:00 00:00:00 Only Unassigned, AYSHA [id number] ity of [place] [facility] [id number] Rigoberto as [phone] [address] 2021-12-28 2021-12-28 Outpatient [facility] [id number] Univers 14:30:00 14:30:00 HARINDERYOSELIN gamboa [facility] 2021-12-28 2021-12-28 Outpatient [facility] [id number] Univers 14:30:00 14:30:00 HARINDERYOSELIN gamboa [facility] 2021-12-28 2021-12-28 Outpatient [facility] [id number] Univers 14:30:00 14:30:00 HARINDER avelino [facility] 2021-12-28 2021-12-28 Orders Doctor AMADOU [id number] Univers 00:00:00 00:00:00 Only Unassigned, AYSHA [id number] ity of [facility] [id number] Rigoberto as [phone] [address] 2021-12-23 2021-12-23 OFFICE STLC STLC [id number] Co mmon 00:00:00 00:00:00 VISIT [facility] PT - CHI LEVEL 4 [facility] 2021-12-21 2021-12-21 Outpatient Thiago [facility] [id number] Univers 15:43:28 23:59:00 [facility] 2021-12-21 2021-12-21 Outpatient [facility] [id number] Univers 15:43:28 23:59:00 [facility] 2021-12-21 2021-12-21 Outpatient [facility] [id number] Univers 15:30:00 16:07:00 [facility] 2021-12-21 2021-12-21 Office [facility] [id number] Univers 15:30:00 16:07:00 Visit [facility] [id number] it y of [place] [id number] Rigoberto as YOBANY?BLEA [phone] [address] MEDICAL OFFICE BUILDING 2021-11-11 2021-11-11 (TEL) STLC STLC [id number] Co mmon 00:00:00 00:00:00 [facility] 2021-11-02 2021-11-02 (TEL) STLC STLMLC [id number] Co mmon 00:00:00 00:00:00 [facility] 2021-07-02 2021-07-02 OFFICE STLC STLC [id number] Co mmon 00:00:00 00:00:00 VISIT [facility] PT - CHI LEVEL 4 [facility] 2021-03-30 2021-03-30 Outpatient STLC STLC [id number] Common 00:00:00 00:00:00 [facility] 2020-12-25 2020-12-25 Outpatient STLMLC STLMLC [id number] Common 00:00:00 00:00:00 [facility] 2020-09-18 2020-09-18 Outpatient STLMLC STLMLC [id number] Common 00:00:00 00:00:00 [facility] 2020-09-15 2020-09-15 Outpatient STLMLC STLMLC [id number] Common 00:00:00 00:00:00 [facility] 2020-06-12 2020-06-12 Outpatient STLMLC STLMLC [id number] Common 00:00:00 00:00:00 [facility] 2020-06-02 2020-06-02 Outpatient STLMLC STLMLC [id number] Common 00:00:00 00:00:00 [facility] 2020-03-25 2020-03-25 Out[facility] [id number] Common 15:00:00 15:00:[address] [facility] 2020-03-18 2020-03-18 Outpatient [facility] [id number] Common 16:51:00 16:51:[address] [facility] 2020-02-05 2020-02-05 Outpatient [facility] [id number] Common 16:26:00 16:26:[address] [facility] 2019-12-11 2019-12-11 Outpatient [facility] [id number] Common 13:15:00 13:15:[address] [facility] 2019-10-16 2019-10-16 Outpatient [facility] [id number] Common 08:56:00 08:56:[address] [facility] 2019-10-12 2019-10-12 Outpatient [facility] [id number] Common 09:41:00 09:41:[address] [facility] 2019-09-26 2019-09-26 Outpatient Mahamed Irbyt [id number] Common 09:14:00 09:14:[address] [facility] 2019-09-11 2019-09-11 Outpatient Mahamed Irbyt [id number] Common 16:41:00 16:41:[address] [facility] 2019-09-11 2019-09-11 Outpatient Mahamed Irbyt [id number] Common 14:45:00 14:45:00 t [place] Spir [address] [facility] Results This patient has no known results.
--- NOTE | 2023-02-18 16:24 | ER ---
Nurse's Notes [facility] Name: Dwayne Walker Jr Age: 52 yrs Sex: Male : 1970 Arrival Date: 02/18/2023 Time: 15:30 Bed 7 Private MD: Diagnosis: Encounter for removal of sutures Presentation: 02/18 15:42 Chief complaint: Patient states: SUTURE REMOVAL, PLACED ON 02/04. Coronavirus screen: At bp this time, the client does not indicate any symptoms associated with coronavirus-19. Ebola Screen: No symptoms or risks identified at this time. Initial Sepsis Screen: Does the patient meet any 2 criteria? No. Patient's initial sepsis screen is negative. Does the patient have a suspected source of infection? No. Patient's initial sepsis screen is negative. Risk Assessment: Do you want to hurt yourself or someone else? Patient reports no desire to harm self or others. Onset of symptoms is unknown. 15:42 Method Of Arrival: Ambulatory bp 15:42 Acuity: FÉLIX 4 bp Triage Assessment: 15:42 General: Appears in no apparent distress. Behavior is calm, cooperative, appropriate bp for age. Pain: Denies pain. EENT: No deficits noted. Injury Description: CLOSED LAC WITH SUTURES. Historical: - Allergies: 15:42 No Known Drug Allergies; bp - Home Meds: 15:42 Eliquis 5 mg Oral tablet [Active]; bp - PMHx: 15:42 DVT; Hypertension; Pulmonary Embolism; Umbilical hernia; bp - PSHx: 15:42 Leg surgery; bp - Immunization history:: Adult Immunizations up to date. - Social history:: Smoking status: Patient denies any tobacco usage or history of. Screenin:34 [facility] ED Fall Risk Assessment (Adult) History of falling in the last 3 months, ld1 including since admission No falls in past 3 months (0 pts). Abuse screen: Denies threats or abuse. Denies injuries from another. Nutritional screening: No deficits noted. Tuberculosis screening: No symptoms or risk factors identified. Assessment: 16:34 Reassessment: See triage assessment. ld1 Vital Signs: 15:42 BP 143 / 86; Pulse 96; Resp 16; Temp 97.7; Pulse Ox 97% ; bp ED Course: 15:32 Patient arrived in ED. rg4 15:41 Joaquín Cruz DO is Attending Physician. ms3 15:42 Triage completed. bp 15:42 Arm band placed on. bp 16:24 Garrett Meade MD is Referral Physician. ms3 16:34 Patient has correct armband on for positive identification. Placed in gown. Bed in low ld1 position. Call light in reach. Side rails up X2. Pulse ox on. NIBP on. Door closed. Noise minimized. Warm blanket given. 16:34 No provider procedures requiring assistance completed. Patient did not have IV access ld1 during this emergency room visit. Administered Medications: 16:33 Drug: Acetaminophen PO 1000 mg Route: PO; hb Medication: 16:34 VIS not applicable for this client. ld1 Outcome: 16:24 Discharge ordered by . ms3 16:35 Discharged to home ambulatory. ld1 16:35 Condition: stable 16:35 Discharge instructions given to patient, Instructed on discharge instructions, follow up and referral plans. Demonstrated understanding of instructions, follow-up care. 16:35 Patient left the ED. ld1 Signatures: Claritza Diaz, RN RN Kiana Walker rg4 Michel Mendez, RN RN bp Joaquín Cruz DO DO ms3 Keri Cruz RN RN ld1
--- NOTE | 2023-02-18 16:24 | EDPHYS ---
Physician Documentation [facility] Name: Dwayne Walker Jr Age: 52 yrs Sex: Male : 1970 Arrival Date: 02/18/2023 Time: 15:30 Bed 7 Private MD: ED Physician Joaquín Cruz HPI: 02/18 18:08 This 52 yrs old Male presents to ER via Ambulatory with complaints of Suture ms3 Removal. 18:08 52-year-old male presents for suture removal status post falling with a laceration on ms3 February 04. Patient had seven 3-0 silk sutures placed. Patient denies pain to the location. Patient denies erythema, tenderness, drainage from incision. Historical: - Allergies: 15:42 No Known Drug Allergies; bp - Home Meds: 15:42 Eliquis 5 mg Oral tablet [Active]; bp - PMHx: 15:42 DVT; Hypertension; Pulmonary Embolism; Umbilical hernia; bp - PSHx: 15:42 Leg surgery; bp - Immunization history:: Adult Immunizations up to date. - Social history:: Smoking status: Patient denies any tobacco usage or history of. ROS: 18:08 Constitutional: Negative for fever, and chills. Neck: Negative for injury, pain, and ms3 swelling, Cardiovascular: Negative for chest pain, and palpitations. Respiratory: Negative for shortness of breath, cough, wheezing, and pleuritic chest pain, Abdomen/GI: Negative for abdominal pain, nausea, vomiting, diarrhea, and constipation. 18:08 Skin: Positive for laceration(s). 18:08 All other systems are negative. Exam: 18:08 Constitutional: This is a well developed, well nourished patient who is awake, alert, ms3 and in no acute distress. Head/Face: Normocephalic, atraumatic. Neck: Trachea midline, no cervical lymphadenopathy. Supple, full range of motion without nuchal rigidity, or vertebral point tenderness. No Meningismus. Chest/axilla: Normal chest wall appearance and motion. Nontender with no deformity. Cardiovascular: Regular rate and rhythm with a normal S1 and S2. No gallops, murmurs, or rubs. Normal PMI, no JVD. No pulse deficits. Respiratory: Lungs have equal breath sounds bilaterally, clear to auscultation and percussion. No rales, rhonchi or wheezes noted. No increased work of breathing, no retractions or nasal flaring. 18:08 Skin: Wound recheck: Staple laceration closure: the wound is healing well. Vital Signs: 15:42 BP 143 / 86; Pulse 96; Resp 16; Temp 97.7; Pulse Ox 97% ; bp MDM: 16:00 Patient medically screened. ms3 18:08 Data reviewed: vital signs, nurses notes, and as a result, I will discharge patient. I ms3 considered the following discharge prescriptions or medication management in the emergency department Medications were administered in the Emergency Department. See MAR. Counseling: I had a detailed discussion with the patient and/or guardian regarding: the historical points, exam findings, and any diagnostic results supporting the discharge/admit diagnosis, the need for outpatient follow up, to return to the emergency department if symptoms worsen or persist or if there are any questions or concerns that arise at home. Response to treatment: the patient's symptoms have markedly improved after treatment, and as a result, I will discharge patient. ED course: Sutures removed without incident. Patient follow-up with his primary care physician as needed. All questions were answered. Return precautions discussed include worsening symptoms, or any other concerns.. Administered Medications: 16:33 Drug: Acetaminophen PO 1000 mg Route: PO; hb Disposition Summary: 02/18/23 16:24 Discharge Ordered Location: Home ms3 Condition: Stable ms3 Diagnosis - Encounter for removal of sutures ms3 Followup: ms3 - With: Garrett Meade MD - When: 2 - 3 days - Reason: Recheck today's complaints Discharge Instructions: - Discharge Summary Sheet ms3 - Suture Removal, Care After ms3 Forms: - Medication Reconciliation Form ms3 - Thank You Letter ms3 - Antibiotic Education ms3 - Prescription Opioid Use ms3 - [email or web address]_[email or web address] ms3 Signatures: Claritza Diaz RN RN Michel Lopez RN RN Joaquín Lai DO DO ms3
[2023-02-18] MEDS ORDERED: ACETAMINOPHEN 500 MG TAB ONE (16:39)
[2023-02-18 17:02] VITALS: BP 143/86; TEMP 97.7; O2SAT 97
== END 2023-02-18 16:35 | disposition home or self-care (01) ==
LOC: ER 15:30
DX: Z48.02 Encounter for removal of sutures (principal)
CPT/HCPCS: 99283

== ENCOUNTER 2023-03-28 12:31 | Emergency (ER) | payer OTHER ==
--- OUTSIDE RECORDS SUMMARY | 2023-03-28 12:36 | XMS REPORT | Continuity of Care Document ---
:1970 Author Organization [facility] t Address [address] [place] [address] [address] [place] [address] Care Team Providers Name Role Phone DIANA JIMENEZ Primary Care Physician Unavailable Diana Jimenez Attending Clinician Unavailable ADRIANO ALEXANDER Attending Clinician Unavailable Adriano Alexander MD Attending Clinician FILOMENA DARBY Attending Clinician Unavailable Filomena Darby MD Attending Clinician Doctor Unassigned, [place] Attending Clinician Unavailable Harinder Krueger MD Attending Clinician HARINDER KRUEGER Attending Clinician Unavailable Payers Payer Name Policy Type Policy Number Effective Date Expiration Date Abbey mendoza [facility] [id number] 2022 Common 00:00:00 [facility] [id number] 2019 Common (Medicaid) 00:00:00 [facility] Problems Condition Condition Condition Status Onset Resolution Last Treating Co mments Source Name Details Category Date Date Treatment Clinician Date Dyslipidem Dyslipidem Disease Active U nivers ia ia 9-18 ity of 00:00: [address] Essential Essential Disease Active Uni vers hypertensi hypertensi 9-06 it y of on on 00:00: [address] Chronic Chronic Disease Active Univers deep vein deep vein 9-06 ity [place] of 00 Medica l popliteal popliteal Bran ch vein vein Chronic Chronic Disease Active Univers pulmonary pulmonary 04-27 ity of embolism embolism 00:00: [place] [id number] Medical Branch No known No known Disease Unive rs active active ity of problems problems [facility] [id number] Body mass Problem Com mon index Spirit [BMI] - [facility] 34.0-34.9, [facility] [id number] Other Problem Common obesity Spirit due to - [facility] excess [facility] [id number] History of Problem Co mmon pulmonary Spirit embolism - [facility] [id number] Peripheral Problem Com mon polyneurop Spirit athy [facility] [id number] HTN, goal Problem Comm on below [facility] 140/90 - [facility] [id number] Generalize Problem Com mon d anxiety [facility] disorder [facility] [id number] Alcohol Problem Common abuse Spirit [facility] [id number] GERD Problem Common without Spirit esophagiti - [facility] [id number] Other Problem Common chronic Spirit pain [facility] [id number] Mixed Problem Common hyperlipid Spirit emia [facility] [id number] Depression Problem Co mmon with Spirit anxiety - [facility] Allergies, Adverse Reactions, Alerts Allergy Allergy Status Severity Reaction(s) Onset Inactive Treating Comm ents Source Name Type Date Date Clinician NO KNOWN Drug Active Univers ALLERGIE Class ity of S [facility] Social History Social Habit Start Date Stop Date Quantity Comments Source History SDWI University o f Alcohol Std [place] [facility] Drinks Branch History SDWI University o f Alcohol Binge [facility] al Branch History of [facility] - Tobacco Use [facility] Sex Assigned At Common Sp valerie - [facility] Exposure to 2022-08-14 2022-08-24 Not sure University of SARS-CoV-2 00:00:00 14:49:00 [facility] (event) Branch Alcohol intake 2022-08-03 2022-08-03 Lifetime University of 00:00:00 00:00:00 non-drinker [facility] (finding) [place] Tobacco use and 2022-08-03 2022-08-03 Smokeless tobacco Un iversity of exposure 00:00:00 00:00:00 non-user [place] [facility] History SDOH 2021-12-21 2021-12-21 1 University o f Alcohol Frequency 00:00:00 00:00:00 [facility] edical Branch Alcohol Comment 2018-04-27 2018-04-27 3 glasses of Univers ity of 00:00:00 00:00:00 liquor /5 days a [facility] dical week Branch Smoking Status Start Date Stop Date Source Never smoked tobacco [facility] Medications Ordered Filled Start Stop Current [...] ity o f tablet 00:00: in the [place] morning. Medical Branch pantoprazol 2021- Yes 40mg Take 40 mg Univers e 40 mg EC 1-29 by mouth ity o f tablet 00:00: in the [place] morning. Medical Branch pantoprazol 2021- Yes 40mg Take 40 mg Univers e 40 mg EC 1-29 by mouth ity o f tablet 00:00: in the [place] morning. Medical Branch pantoprazol 2021- Yes 40mg Take 40 mg Univers e 40 mg EC 1-29 by mouth ity o f tablet 00:00: in the [place] morning. Medical Branch hydrOXYzine 2021- Yes TAKE 1 Univ ers 25 mg 1-21 TABLET BY ity of tablet 00:00: MOUTH [place] 00 EVERY 8 Medical HOURS Branch NEEDED FOR ANXIETY hydrOXYzine 2021-08 Yes TAKE 1 Univ ers 25 mg 1-21 TABLET BY ity of tablet 00:00: MOUTH [place] 00 EVERY 8 Medical HOURS Branch NEEDED FOR ANXIETY hydrOXYzine 2021-08 Yes TAKE 1 Univ ers 25 mg 1-21 TABLET BY ity of tablet 00:00: MOUTH [place] 00 EVERY 8 Medical HOURS Branch NEEDED FOR ANXIETY hydrOXYzine 2021-08 Yes TAKE 1 Univ ers 25 mg 1-21 TABLET BY ity of tablet 00:00: MOUTH [place] 00 EVERY 8 Medical HOURS Branch NEEDED FOR ANXIETY methylPREDN 2021-0 Yes [id number] 84mg Take 21 Univers ISolone 5-27 tablets by ity of (MEDROL, 00:00: mouth [place] RITU,) 4 mg 00 SEE-INSTRU Med ical tablets CTIONS. Branch follow package directions methylPREDN 2022-0 Yes [id number] 84mg Take 21 Univers ISolone 5-27 tablets by ity of (MEDROL, 00:00: mouth [place] RITU,) 4 mg 00 SEE-INSTRU Med ical tablets CTIONS. Branch follow package directions methylPREDN 2022-0 Yes [id number] 84mg Take 21 Univers ISolone 5-27 tablets by ity of (MEDROL, 00:00: mouth [place] RITU,) 4 mg 00 SEE-INSTRU Med ical tablets CTIONS. Branch follow package directions methylPREDN 2-0 Yes [id number] 84mg Take 21 Univers ISolone 5-27 tablets by ity of (MEDROL, 00:00: mouth [place] RITU,) 4 mg 00 SEE-INSTRU Med ical tablets CTIONS. Branch follow package directions methylPREDN 2021-0 Yes [id number] 84mg Take 21 Univers ISolone 5-27 tablets by ity of (MEDROL, 00:00: mouth [place] RITU,) 4 mg 00 SEE-INSTRU Med ical tablets CTIONS. Branch follow package directions methylPREDN 2-0 Yes [id number] 84mg Take 21 Univers ISolone 5-27 tablets by ity of (MEDROL, 00:00: mouth [place] RITU,) 4 mg 00 SEE-INSTRU Med ical tablets CTIONS. Branch follow package directions methylPREDN 2021-0 Yes [id number] 84mg Take 21 Univers ISolone 5-27 tablets by ity of (MEDROL, 00:00: mouth [place] RITU,) 4 mg 00 SEE-INSTRU Med ical tablets CTIONS. Branch follow package directions colchicine 2021-0 2- No [id number] .6mg Take 0.6 Univers 0.6 mg Cap 5-27 06-07 mg by ity of 00:00: 04:59 mouth 2 [place] 00 :00 (two) Medical times [place] daily for 10 days. colchicine 2021-0 2021- No [id number] .6mg Take 0.6 Univers 0.6 mg Cap 5-27 06-07 mg by ity of 00:00: 04:59 mouth 2 [place] 00 :00 ([facility]) Medical times [place] daily for 10 days. lisinopriL 0 Yes 40mg Take 40 mg U nivers 40 mg 3-21 by mouth ity of tablet 00:00: daily. [address] atorvastati 0 Yes 20mg Take 20 mg Univers n 20 mg 3-21 by mouth ity of tablet 00:00: daily. [address] ELIQUIS 5 2021-0 Yes 5mg Take 5 mg Uni vers mg tablet 3-21 by mouth ity of 00:00: daily. [address] lisinopriL 2021-0 Yes 40mg Take 40 mg U nivers 40 mg 3-21 by mouth ity of tablet 00:00: daily. [address] atorvastati 0 Yes 20mg Take 20 mg Univers n 20 mg 3-21 by mouth ity of tablet 00:00: daily. [address] ELIQUIS 5 2022-0 Yes 5mg Take 5 mg Uni vers mg tablet 3-21 by mouth ity of 00:00: daily. [place] [facility] Branch lisinopriL 0 Yes 40mg Take 40 mg U nivers 40 mg 3-21 by mouth ity of tablet 00:00: daily. [place] [facility] Branch lisinopriL 0 Yes 40mg Take 40 mg U nivers 40 mg 3-21 by mouth ity of tablet 00:00: daily. [place] [facility] Branch atorvastati 0 Yes 20mg Take 20 mg Univers n 20 mg 3-21 by mouth ity of tablet 00:00: daily. [place] [facility] ELIQUIS 5 0 Yes 5mg Take 5 mg Uni vers mg tablet 3-21 by mouth ity of 00:00: daily. [place] [facility] Branch lisinopriL 0 Yes 40mg Take 40 mg U nivers 40 mg 3-21 by mouth ity of tablet 00:00: daily. [place] [facility] atorvastati 0 Yes 20mg Take 20 mg Univers n 20 mg 3-21 by mouth ity of tablet 00:00: daily. [place] [facility] ELIQUIS 5 0 Yes 5mg Take 5 mg Uni vers mg tablet 3-21 by mouth ity of 00:00: daily. [place] [facility] Branch lisinopriL 0 Yes 40mg Take 40 mg U nivers 40 mg 3-21 by mouth ity of tablet 00:00: daily. [place] [facility] atorvastati 0 Yes 20mg Take 20 mg Univers n 20 mg 3-21 by mouth ity of tablet 00:00: daily. [place] [facility] ELIQUIS 5 0 Yes 5mg Take 5 mg Uni vers mg tablet 3-21 by mouth ity of 00:00: daily. [place] [facility] lisinopriL 0 Yes 40mg Take 40 mg U nivers 40 mg 3-21 by mouth ity of tablet 00:00: daily. [place] [facility] atorvastati 0 Yes 20mg Take 20 mg Univers n 20 mg 3-21 by mouth ity of tablet 00:00: daily. [place] [facility] atorvastati 2021-0 Yes 20mg Take 20 mg Univers n 20 mg 3-21 by mouth ity of tablet 00:00: daily. [place] [facility] ELIQUIS 5 0 Yes 5mg Take 5 mg Uni vers mg tablet 3-21 by mouth ity of 00:00: daily. [place] [facility] Branch lisinopriL 0 Yes 40mg Take 40 mg U nivers 40 mg 3-21 by mouth ity of tablet 00:00: daily. [place] [facility] atorvastati 0 Yes 20mg Take 20 mg Univers n 20 mg 3-21 by mouth ity of tablet 00:00: daily. [place] [facility] ELIQUIS 5 0 Yes 5mg Take 5 mg Uni vers mg tablet 3-21 by mouth ity of 00:00: daily. [place] [facility] lisinopriL 0 Yes 40mg Take 40 mg U nivers 40 mg 3-21 by mouth ity of tablet 00:00: daily. [place] [facility] atorvastati 0 Yes 20mg Take 20 mg Univers n 20 mg 3-21 by mouth ity of tablet 00:00: daily. [place] [facility] ELIQUIS 5 0 Yes 5mg Take 5 mg Uni vers mg tablet 3-21 by mouth ity of 00:00: daily. [place] [facility] ELIQUIS 5 0 Yes 5mg Take 5 mg Uni vers mg tablet 3-21 by mouth ity of 00:00: daily. [address] HydrOXYzine HydrOXYzine 2020-0 Yes Diana 1 [...] 1-26 by mouth ity of 15:32: daily. [place] [address] Medical Branch hydroCHLORO 2017-08 Yes 12.5mg Take [...] 1-26 by mouth ity of 15:32: daily. [place] [address] Medical Branch hydroCHLORO 2017-08 Yes 12.5mg Take [...] 1-26 by mouth ity of 15:32: daily. [place] [address] Medical Branch hydroCHLORO 2017-08 Yes 12.5mg Take [...] 30 minutes Spirit before - [facility] morning [facility] Brandon Brandon Yes Diana 1 tablet Common Jimenez as [...] Omeprazole 40 MG 40 MG 40 MG Brandon Brandon No 1{table Brandon 7.5-325 MG 7.5-325 MG t_as_ne 7.5-325 MG [...] Lisinopril 40 MG 40 MG 40 MG Brandon Brandon No 1{table Brandon 7.5-325 MG 7.5-325 MG t_as_ne 7.5-325 MG [...] QD Eliquis 5 MG MG t} MG Brandon Brandon No 1{table Brandon 7.5-325 MG 7.5-325 MG t_as_ne 7.5-325 MG [...] Calcium 20 MG 20 MG 20 MG Brandon Brandon No 1{table Brandon 7.5-325 MG 7.5-325 MG t_as_ne 7.5-325 MG [...] Calcium 20 MG 20 MG 20 MG Brandon Brandon No 1{table Brandon 7.5-325 MG 7.5-325 MG t_as_ne 7.5-325 MG [...] 40 MG 40 MG t} 40 MG Brandon Brandon No 1{table Brandon 7.5-325 MG 7.5-325 MG t_as_ne 7.5-325 MG [...] 40 MG 40 MG t} 40 MG Brandon Brandon No 1{table Brandon 7.5-325 MG 7.5-325 MG t_as_ne 7.5-325 MG [...] 40 MG 40 MG t} 40 MG Brandon Brandon No 1{table Brandon 7.5-325 MG 7.5-325 MG t_as_ne 7.5-325 MG [...] 800 MG 800 MG t} 800 MG Brandon Brandon No 1{table Brandon 7.5-325 MG 7.5-325 MG t_as_ne 7.5-325 MG [...] 800 MG 800 MG t} 800 MG Brandon Brandon No 1{table Brandon 7.5-325 MG 7.5-325 MG t_as_ne 7.5-325 MG [...] 800 MG 800 MG t} 800 MG Brandon Brandon No 1{table Brandon 7.5-325 MG 7.5-325 MG t_as_ne 7.5-325 MG [...] MG MG dtime_a 5 MG s_neede d} Brandon Brandon No 1{table Brandon 7.5-325 MG 7.5-325 MG t_as_ne 7.5-325 MG [...] ISolone 4 NISolone 4 MG MG MG Brandon Brandon No 1{table Brandon 7.5-325 MG 7.5-325 MG t_as_ne 7.5-325 MG [...] MG MG dtime_a 5 MG s_neede d} Brandon Brandon No 1{table Brandon 7.5-325 MG 7.5-325 MG t_as_ne 7.5-325 MG [...] Calcium 20 MG 20 MG 20 MG Brandon Brandon No 1{table Brandon 7.5-325 MG 7.5-325 MG t_as_ne 7.5-325 MG [...] Hui 2022-07-29 Completed [facility] 15:22:00 - [facility] Ez Hui 2022-07-29 Completed [facility] 15:22:00 - [facility] Flucelvax - single Flucelvax - single 2022-07-29 Completed [facility] dose syringe dose syringe 15:21:00 - [facility] Flucelvax - single Flucelvax - single 2022-07-29 Completed [facility] dose syringe dose syringe 15:21:00 [facility] Pneumovax (PPSV23) Pneumovax (PPSV23) 2021-03-30 Completed [facility] 14:37:[address] [facility] Pneumovax (PPSV23) Pneumovax (PPSV23) 2021-03-30 Completed [facility] 14:37:[address] [facility] Pneumovax (PPSV23) Pneumovax (PPSV23) 2021-03-30 Completed [facility] 14:37:[address] [facility] Pneumovax (PPSV23) Pneumovax (PPSV23) 2021-03-30 Completed [facility] 14:37:[address] [facility] Pneumovax (PPSV23) Pneumovax (PPSV23) 2021-03-30 Completed [facility] 14:37:[address] [facility] Pneumovax (PPSV23) Pneumovax (PPSV23) 2021-03-30 Completed [facility] 14:37:[address] [facility] Pneumovax (PPSV23) Pneumovax (PPSV23) 2021-03-30 Completed [facility] 14:37:[address] [facility] Pneumovax (PPSV23) Pneumovax (PPSV23) 2021-03-30 Completed [facility] 14:37:[address] [facility] Pneumovax (PPSV23) Pneumovax (PPSV23) 2021-03-30 Completed [facility] 14:37:[address] [facility] Pneumovax (PPSV23) Pneumovax (PPSV23) 2021-03-30 Completed [facility] 14:37:[address] [facility] Pneumovax (PPSV23) Pneumovax (PPSV23) 2021-03-30 Completed [facility] 14:37:[address] [facility] Pneumovax (PPSV23) Pneumovax (PPSV23) 2021-03-30 Completed [facility] 14:37:[address] [facility] Pneumovax (PPSV23) Pneumovax (PPSV23) 2021-03-30 Completed [facility] 14:37:[address] [facility] Pneumovax (PPSV23) Pneumovax (PPSV23) 2021-03-30 Completed [facility] 14:37:[address] [facility] Pneumovax (PPSV23) Pneumovax (PPSV23) 2021-03-30 Completed [facility] 14:37:[address] [facility] Afluria single dose Afluria single dose 2020-06-12 Completed [facility] 15:26:[address] [facility] Afluria single dose Afluria single dose 2020-06-12 Completed [facility] 15:26:[address] [facility] Afluria single dose Afluria single dose 2020-06-12 Completed [facility] 15::[address] [facility] Afluria single dose Afluria single dose 2020-06-12 Completed [facility] 15::[address] [facility] Afluria single dose Afluria single dose 2020-06-12 Completed [facility] 15:26:[address] [facility] Afluria single dose Afluria single dose 2020-06-12 Completed [facility] 15:26:[address] [facility] Afluria single dose Afluria single dose 2020-06-12 Completed [facility] 15:26:[address] [facility] Afluria single dose Afluria single dose 2020-06-12 Completed [facility] 15:26:[address] [facility] Afluria single dose Afluria single dose 2020-06-12 Completed [facility] 15:26:[address] [facility] Afluria single dose Afluria single dose 2020-06-12 Completed [facility] 15:26:[address] [facility] Afluria single dose Afluria single dose 2020-06-12 Completed [facility] 15::[address] [facility] Afluria single dose Afluria single dose 2020-06-12 Completed [facility] 15:: [facility] Afluria single dose Afluria single dose 2020-06-12 Completed [facility] 15::[address] [facility] Afluria single dose Afluria single dose 2020-06-12 Completed [facility] 15:: [facility] Afluria single dose Afluria single dose 2020-06-12 Completed [facility] 15:26:[address] [facility] Afluria single dose Afluria single dose 2019-08-28 Completed [facility] 13:24:[address] [facility] Afluria single dose Afluria single dose 2019-08-28 Completed [facility] 13:24:[address] [facility] Afluria single dose Afluria single dose 2019-08-28 Completed [facility] 13:24:[address] [facility] Afluria single dose Afluria single dose 2019-08-28 Completed [facility] 13:24:[address] [facility] Afluria single dose Afluria single dose 2019-08-28 Completed [facility] 13:24:[address] [facility] Afluria single dose Afluria single dose 2019-08-28 Completed [facility] 13:24:[address] [facility] Afluria single dose Afluria single dose 2019-08-28 Completed [facility] 13:24:[address] [facility] Afluria single dose Afluria single dose 2019-08-28 Completed [facility] 13:24:[address] [facility] Afluria single dose Afluria single dose 2019-08-28 Completed [facility] 13:24:[address] [facility] Afluria single dose Afluria single dose 2019-08-28 Completed [facility] 13:24:[address] [facility] Afluria single dose Afluria single dose 2019-08-28 Completed [facility] 13:24:[address] [facility] Afluria single dose Afluria single dose 2019-08-28 Completed [facility] 13:24:[address] [facility] Afluria single dose Afluria single dose 2019-08-28 Completed [facility] 13:24:[address] [facility] Afluria single dose Afluria single dose 2019-08-28 Completed [facility] 13:24:[address] [facility] Afluria single dose Afluria single dose 2019-08-28 Completed [facility] 13:24:[address] [facility] Vital Signs Vital Name Observation Time Observation Value Comments Source Systolic blood 2022-08-24 21:00:00 156 mm[Hg] Univer sity of pressure [facility] Diastolic blood 2022-08-24 21:00:00 97 mm[Hg] Unive rsity of [facility] Heart rate 2022-08-24 20:57:00 83 /min Universi ty of [place] [facility] Body temperature 2022-08-24 20:57:00 36.67 Evette [facility] ersity of [place] [facility] Respiratory rate 2022-08-24 20:57:00 16 /min Univ ersity of [place] [facility] Body height 2022-08-24 20:57:00 170.2 cm Universi ty of [place] [facility] [place] Body weight 2022-08-24 20:57:00 104.781 kg Universi ty of [place] [facility] BMI 2022-08-24 20:57:00 36.18 kg/m2 Universi ty of [facility] Branch Oxygen saturation in 2022-08-24 20:57:00 96 /min University of Arterial blood by [facility] Pulse oximetry Branch Systolic blood 2022-08-03 20:16:00 155 mm[Hg] Univer sity of [facility] Diastolic blood 2022-08-03 20:16:00 96 mm[Hg] Unive rsity of [facility] Heart rate 2022-08-03 20:16:00 92 /min Universi ty of [place] [facility] Body temperature 2022-08-03 20:15:00 37 Evette [facility] ersity of [place] [facility] [place] Respiratory rate 2022-08-03 20:15:00 18 /min [facility] ersity of [place] [facility] [place] Body height 2022-08-03 20:15:00 170.2 cm Universi ty of [place] [facility] [place] Body weight 2022-08-03 20:15:00 101.696 kg Universi ty of [place] [facility] [place] BMI 2022-08-03 20:15:00 35.11 kg/m2 Universi ty of [place] [facility] [place] Oxygen saturation in 2022-08-03 20:15:00 94 /min University of Arterial blood by [facility] Pulse oximetry Branch height 2022-07-29 15:20:00 65.5 [in_i] Common S pirit [facility] weight 2022-07-29 15:20:00 225.9 [lb_av] [facility] Spirit [facility] temperature 2022-07-29 15:20:00 97.7 [degF] Common [facility] bmi 2022-07-29 15:20:00 37.02 kg/m2 Common [facility] oximetry 2022-07-29 15:20:00 98 % [facility] respiratory rate 2022-07-29 15:20:00 18 /min Comm on [facility] blood pressure 2022-07-29 15:20:00 139 mm[Hg] Common [facility] - systolic [facility] blood pressure 2022-07-29 15:20:00 77 mm[Hg] Common [facility] - diastolic [facility] height 2022-05-04 11:20:00 65.5 [in_i] Common [facility] weight 2022-05-04 11:20:00 213 [lb_av] [facility] bmi 2022-05-04 11:20:00 34.9 kg/m2 [facility] height 2022-03-24 15:40:00 65.5 [in_i] [facility] weight 2022-03-24 15:40:00 213 [lb_av] [facility] temperature 2022-03-24 15:40:00 99.0 [degF] [facility] bmi 2022-03-24 15:40:00 34.9 kg/m2 [facility] oximetry 2022-03-24 15:40:00 95 % [facility] respiratory rate 2022-03-24 15:40:00 16 /min Comm on [facility] blood pressure 2022-03-24 15:40:00 134 mm[Hg] Common [facility] - systolic [facility] blood pressure 2022-03-24 15:40:00 88 mm[Hg] Common [facility] - diastolic [facility] Systolic blood 2022-01-15 15:31:00 145 mm[Hg] Univer sity of pressure [facility] Diastolic blood 2022-01-15 15:31:00 91 mm[Hg] Unive rsity of [facility] Heart rate 2022-01-15 15:31:00 90 /min Universi ty [facility] Oxygen saturation in 2022-01-15 15:31:00 95 /min University Arterial blood by [facility] Pulse oximetry Branch Body height 2022-01-15 15:22:00 167.6 cm Universi ty of [facility] Body weight 2022-01-15 15:22:00 100.2 kg Universi ty [facility] BMI 2022-01-15 15:22:00 35.65 kg/m2 Universi ty [facility] height 2021-12-23 14:20:00 67 [in_i] [facility] weight 2021-12-23 14:20:00 215.5 [lb_av] [facility] temperature 2021-12-23 14:20:00 98.0 [degF] [facility] bmi 2021-12-23 14:20:00 33.75 kg/m2 [facility] oximetry 2021-12-23 14:20:00 96 % [facility] respiratory rate 2021-12-23 14:20:00 17 /min Comm on [facility] blood pressure 2021-12-23 14:20:00 132 mm[Hg] Common [facility] - systolic [facility] blood pressure 2021-12-23 14:20:00 87 mm[Hg] Common [facility] - diastolic [facility] Systolic blood 2021-12-21 20:39:00 153 mm[Hg] Univer sity of [facility] Diastolic blood 2021-12-21 20:39:00 74 mm[Hg] Unive rsity of pressure [facility] Heart rate 2021-12-21 20:39:00 87 /min Universi ty [facility] Body height 2021-12-21 20:39:00 170.2 cm Universi ty [facility] Body weight 2021-12-21 20:39:00 63.05 kg Universi ty [facility] BMI 2021-12-21 20:39:00 21.77 kg/m2 Universi ty [facility] height 2021-07-02 14:20:00 67 [in_i] [facility] weight 2021-07-02 14:20:00 205 [lb_av] Common [facility] [facility] temperature 2021-07-02 14:20:00 98 [degF] [facility] bmi 2021-07-02 14:20:00 32.1 kg/m2 Common [facility] blood pressure 2021-07-02 14:20:00 128 mm[Hg] Common [facility] - systolic [facility] blood pressure 2021-07-02 14:20:00 78 mm[Hg] Common [facility] - diastolic [facility] Procedures Procedure Date / Time Performed Performing Clinician [facility] e REFERRAL- 2022-07-06 06:01:00 Doctor Unassigned, No [facility] [place] REQUEST/RESPONSE Name [facility] SCANNED LAB RESULTS 2021-12-28 05:01:00 Doctor Unassigned, No [facility] [place] Name [facility] Encounters Start End Encounter Admission Attending Care Care Encounter Source Date/Time Date/Time Type Type Clinicians Facility Department ID 2022-10-25 Outpatient Jimenez, STLMLC STLMLC [id number] Common 14:53:01 Diana 12435 [facility] 2022-07-28 Outpatient Jimenez, STLMLC STLMLC [id number] Common 15:02:01 Diana 63069 [facility] 2022-06-29 Outpatient Jimenez, STLMLC STLMLC [id number] Common 15:13:00 Diana 08656 [facility] 2022-03-25 Outpatient Jimenez, STLMLC STLMLC [id number] Common 12:17:00 Diana 33700 [facility] 2022-03-04 Outpatient Jimenez, STLMLC STLMLC [id number] Common 13:08:00 Diana [facility] 2021-12-24 Outpatient Jimenez, STLMLC STLMLC [id number] Common 08:55:00 Diana [facility] 2021-10-21 Outpatient Jimenez, STLMLC STLMLC [id number] Common 10:55:01 Diana [facility] 2021-10-12 Outpatient Jimenez, STLMLC STLMLC [id number] Common 09:48:01 Diana [facility] 2021-10-08 Outpatient Jimenez, STLMLC STLMLC [id number] Common 11:48:01 Diana [facility] 2021-09-16 Outpatient Jimenez, STLMLC STLMLC [id number] Common 14:12:10 Diana [facility] 2021-09-16 Outpatient Jimenez, STLMLC STLMLC [id number] Common 13:35:35 Diana [facility] 2021-09-16 Outpatient Jimenez, STLMLC STLMLC [id number] Common 12:59:49 Diana [facility] 2021-09-16 Outpatient Jimenez, STLMLC STLMLC [id number] Common 12:53:40 Diana 59804 [facility] 2021-09-16 Outpatient Jimenez, STLMLC STLMLC [id number] Common 12:24:31 Diana 10805 [facility] 2021-09-16 Outpatient Jimenez, STLMLC STLMLC [id number] Common 11:58:12 Diana 46244 [facility] 2021-09-16 Outpatient Jimenez, STLMLC STLMLC [id number] Common 11:57:01 Diana 93150 [facility] 2021-09-16 Outpatient Jimenez, STLMLC STLMLC [id number] Common 11:32:27 Diana 35264 [facility] 2021-09-16 Outpatient Jimenez, STLMLC STLMLC [id number] Common 11:18:43 Diana 39213 [facility] 2021-09-16 Outpatient Jimenez, STLMLC STLMLC [id number] Common 11:17:53 Diana 65656 [facility] 2021-09-16 Outpatient Jimenez, STLMLC STLMLC [id number] Common 11:02:12 [facility] [address] [facility] 2022-09-13 2022-09-13 (TEL) STLMLC STLMLC [id number] Co mmon 00:00:00 00:00:00 [facility] 2022-08-24 2022-08-24 Office Rocio Adriano [facility] [id number] Univers 15:00:00 15:15:00 Visit [facility] [id number] it [id number] [phone] [address] OFFICE BUILDING 2022-08-24 2022-08-24 Outpatient R ADRIANO [facility] [id number] Univers 15:00:00 15:00:00 cooper [facility] 2022-08-03 2022-08-03 [facility] [id number] Univers 14:30:00 14:46:13 FILOMENA gamboa [facility] 2022-08-03 2022-08-03 [facility] [id number] Univers 14:30:00 14:46:13 Visit Filomena MEZA [id number] i [id number] [facility] [id number] [place] [address] Branch [facility] 2022-07-29 2022-07-29 Outpatient [facility] [id number] Univers 14:30:00 14:30:00 FILOMENA gamboa [facility] 2022-07-29 2022-07-29 [facility] [id number] Co mmon 00:00:00 00:00:00 VISIT Spirit ESTAB PT - [facility]I L[facility]EL [facility] 2022-07-27 2022-07-27 [facility]patient [facility] [id number] Univers 15:00:00 15:00:00 FILOMENA gamboa [facility] 2022-07-06 2022-07-06 Orders Doctor TOBAR [id number] Univers 00:00:00 00:00:00 Only Unassigned, AYSHA [id number] ity of [place] [facility] [id number] Rigoberto as [phone] [place] [address] Branch 2022-07-05 2022-07-05 (TEL) STLMLC STLMLC [id number] Co mmon 00:00:00 00:00:00 [facility] 2022-05-04 2022-05-04 OL DIG E/M STLMLC STLMLC [id number] Common 00:00:00 00:00:00 [facility] 11-[address] [facility] 2022-05-04 2022-05-04 (TEL) STLMLC STLMLC [id number] Co mmon 00:00:00 00:00:00 [facility] 2022-05-03 2022-05-03 (TEL) STLMLC STLMLC [id number] Co mmon 00:00:00 00:00:00 [facility] 2022-04-05 2022-04-05 (TEL) STLMLC STLMLC [id number] Co mmon 00:00:00 00:00:00 [facility] 2022-03-30 2022-03-30 (TEL) STLMLC STLMLC [id number] Co mmon 00:00:00 00:00:00 [facility] 2022-03-24 2022-03-24 (WELLNESS) STLMLC STLMLC [id number] Common 00:00:00 00:00:00 Wellness Spiri t [facility] 2022-03-01 2022-03-01 (TEL) STLMLC STLMLC [id number] Co mmon 00:00:00 00:00:00 [facility] 2022-02-18 2022-02-18 (TEL) STLMLC STLMLC [id number] Co mmon 00:00:00 00:00:00 [facility] 2022-01-20 2022-01-20 Telephone THEA Krueger [id number] [facility] [place] 00:00:00 00:00:00 Harinder L HEALTH [id number] it y of [place] [id number] Rigoberto as YOBANY?BLEA [phone] Me carol MOMIN [address] MEDICAL OFFICE [facility] 2022-01-15 2022-01-15 Office Pati [facility] [id number] Univers 11:00:00 11:32:20 Visit Harinder RODRIGEZ [id number] it y of [place] [id number] Rigoberto as YOBANY?BLEA [id number] Me carol MOMIN [address] [place] [address] MEDICAL OFFICE [facility] 2022-01-15 2022-01-15 Outpatient Thiago [facility] [id number] Univers 11:00:00 11:32:20 HARINDERYOSELIN gamboa [facility] 2022-01-15 2022-01-15 [facility] [id number] Univers 11:00:00 11:32:20 HARINDER cooper [facility] 2022-01-15 2022-01-15 [facility] [id number] Univers 11:00:00 11:00:00 [facility] 2022-01-07 2022-01-07 Orders Doctor TOBAR [id number] Univers 00:00:00 00:00:00 Only Unassigned, AYSHA 350.1.13.10 ity of [place] [facility] [id number] Rigoberto as [phone] [address] 2021-12-28 2021-12-28 Outpatient [facility] [id number] Univers 14:30:00 14:30:00 HARINDERYOSELIN gamboa [facility] 2021-12-28 2021-12-28 [facility] [id number] Univers 14:30:00 14:30:00 HARINDERYOSELIN gamboa [facility] 2021-12-28 2021-12-28 [facility] [id number] Univers 14:30:00 14:30:00 [facility] 2021-12-28 2021-12-28 Orders Doctor AMADOU [id number] Univers 00:00:00 00:00:00 Only Unassigned, AYSHA 350.1.13.10 ity of [facility] [id number] Rigoberto as [phone] [address] 2021-12-23 2021-12-23 OFFICE STLC STLC [id number] Co mmon 00:00:00 00:00:00 VISIT [facility] PT - CHI LEVEL 4 [facility] 2021-12-21 2021-12-21 Outpatient Thiago [facility] [id number] Univers 15:43:28 23:59:00 [facility] 2021-12-21 2021-12-21 [facility] [id number] Univers 15:43:28 23:59:00 [facility] 2021-12-21 2021-12-21 [facility] [id number] Univers 15:30:00 16:07:00 [facility] 2021-12-21 2021-12-21 Office [facility] [id number] Univers 15:30:00 16:07:00 Visit [facility] [id number] it y of [place] [id number] Rigoberto as YOBANY?BLEA [id number] [address] MEDICAL OFFICE BUILDING 2021-11-11 2021-11-11 (TEL) STLC STLC [id number] Co mmon 00:00:00 00:00:00 [facility] 2021-11-02 2021-11-02 (TEL) STLC STLMLC [id number] Co mmon 00:00:00 00:00:00 [facility] 2021-07-02 2021-07-02 OFFICE STLMLC STLMLC [id number] Co mmon 00:00:00 00:00:00 VISIT [facility] PT - CHI LEVEL 4 [facility] 2021-03-30 2021-03-30 Outpatient STLC STLMLC [id number] Common 00:00:00 00:00:00 [facility] 2020-12-25 2020-12-25 Outpatient STLMLC STLMLC [id number] Common 00:00:00 00:00:00 [facility] 2020-09-18 2020-09-18 Outpatient STLMLC STLMLC [id number] Common 00:00:00 00:00:00 [facility] 2020-09-15 2020-09-15 Outpatient STLMLC STLMLC [id number] Common 00:00:00 00:00:00 [facility] 2020-06-12 2020-06-12 Outpatient STLMLC STLMLC [id number] Common 00:00:00 00:00:00 [facility] 2020-06-02 2020-06-02 Outpatient STLMLC STLMLC [id number] Common 00:00:00 00:00:00 [facility] 2020-03-25 2020-03-25 Outpatient [facility] [id number] Common 15:00:00 15:00:[address] [facility] 2020-03-18 2020-03-18 Outpatient [facility] [id number] Common 16:51:00 16:51:[address] [facility] 2020-02-05 2020-02-05 Outpatient [facility] [id number] Common 16:26:00 16:26:[address] [facility] 2019-12-11 2019-12-11 Outpatient [facility] [id number] Common 13:15:00 13:15:[address] [facility] 2019-10-16 2019-10-16 Outpatient [facility] [id number] Common 08:56:00 08:56:[address] [facility] 2019-10-12 2019-10-12 Outpatient [facility] [id number] Common 09:41:00 09:41:[address] [facility] 2019-09-26 2019-09-26 Outpatient Mahamed Irbyt [id number] Common 09:14:00 09:14:[address] [facility] 2019-09-11 2019-09-11 Outpatient Mahamed Irbyt [id number] Common 16:41:00 16:41:00 t [employer] Sp[address] [facility] 2019-09-11 2019-09-11 Outpatient Mahamed Irbyt [id number] Common 14:45:00 14:45:00 t [employer] Sp[address] [facility] Results This patient has no known results.
--- NOTE | 2023-03-28 13:04 | RAD REPORT ---
EXAM DESCRIPTION: RAD - Foot Left 3 View - 03/28/2023 12:49 pm CLINICAL HISTORY: Left Foot pain FINDINGS: No fracture or dislocation is seen. Osteoporosis. Portion of the distal fibula has been resected. Moderate plantar calcaneal spur
[2023-03-28] MEDS ORDERED: HYDROCODONE/APAP 5/325 MG TAB ONE (13:05)
[2023-03-28] MEDS ORDERED: IBUPROFEN 400 MG TAB ONE (13:06)
--- NOTE | 2023-03-28 13:13 | EDPHYS ---
Physician Documentation [facility] Name: Dwayne Walker Jr Age: 52 yrs Sex: Male : 1970 Arrival Date: 03/28/2023 Time: 12:31 Bed 8 Private MD: ED Physician Carlos Escoto HPI: 03/28 13:09 This 52 yrs old Male presents to ER via EMS with complaints of Foot Pain. rn 13:09 The patient presents with an injury, pain. The complaints affect the left foot. rn 13:09 Onset: The symptoms/episode began/occurred 2 day(s) ago. Modifying factors: The rn symptoms are alleviated by elevation of extremity, the symptoms are aggravated by weight bearing. Associated signs and symptoms: Pertinent positives: swelling, Pertinent negatives: fever, warmth, weakness. Severity of symptoms: At their worst the symptoms were moderate, in the emergency department the symptoms are unchanged. The patient has not experienced similar symptoms in the past. The patient has not recently seen a physician. Pt accidentally kicked edge of bed 2 days ago, + ecchymosis and swelling left 5th toe. . Historical: - Allergies: 12:35 No Known Allergies; aa5 - Home Meds: 12:37 omeprazole 40 mg oral capsule,delayed release (e.c.) [Active]; rs5 hydrocodone-acetaminophen 7.5-325 mg oral tablet [Active]; hydroxyzine HCl 25 mg oral tablet [Active]; gabapentin 800 mg oral tablet [Active]; lisinopril 40 mg oral tablet [Active]; atorvastatin 20 mg oral tablet [Active]; Trulicity [Active]; Mavyret 100-40 mg oral tablet [Active]; - PMHx: 12:35 DVT; Hypertension; Pulmonary Embolism; Umbilical hernia; Borderline Diabetes; aa5 12:37 Hep C; rs5 - PSHx: 12:35 Leg surgery; Hernia; aa5 - Immunization history:: Adult Immunizations unknown. - Family history:: not pertinent. - Social history:: Smoking status: unknown. - Hospitalizations: : No recent hospitalization is reported. ROS: 13:09 Constitutional: Negative for fever, chills, and weight loss, MS/Extremity: + left 5th rn toe injury Exam: 13:09 Constitutional: This is a well developed, well nourished patient who is awake, alert, rn and in no acute distress. MS/ Extremity: Pulses equal, no cyanosis. Neurovascular intact. + ecchymosis and swelling to left 5th proximal toe, no open wound. Vital Signs: 12:32 BP 155 / 103; Pulse 91; Resp 18 S; Temp 98.2(TE); Pulse Ox 99% on R/A; Weight 97.52 kg aa5 (R); MDM: 12:32 Patient medically screened. rn 13:09 Differential diagnosis: fracture, sprain. Data reviewed: vital signs, nurses notes, rn radiologic studies, plain films, and as a result, I will discharge patient. Counseling: I had a detailed discussion with the patient and/or guardian regarding: the historical points, exam findings, and any diagnostic results supporting the discharge/admit diagnosis, radiology results, the need for outpatient follow up, to return to the emergency department if symptoms worsen or persist or if there are any questions or concerns that arise at home. Response to treatment: the patient's symptoms have mildly improved after treatment, and as a result, I will discharge patient. Special discussion: I discussed with the patient/guardian in detail that at this point there is no indication for admission to the hospital. It is understood, however, that if the symptoms persist or worsen the patient needs to return immediately for re-evaluation. ED course: NO acute fracture or traumatic findings on imaging, will dc home with return precautions and OTC meds. . 03/28 12:33 Order name: XRAY Foot LEFT 3 View; Complete Time: 13:06 rn Administered Medications: 12:59 Drug: Ibuprofen PO 800 mg Route: PO; cm10 12:59 Drug: HYDROcodone-acetaminophen PO 5 mg-325 mg 1 tabs Route: PO; cm10 Disposition Summary: 03/28/23 13:13 Discharge Ordered Location: Home rn Problem: new rn Symptoms: have improved rn Condition: Stable rn Diagnosis - Pain in left toe(s) rn - Contusion of left lesser toe(s) without damage to nail, initial encounter rn Followup: rn - With: Private Physician - When: As needed - Reason: Recheck today's complaints, Re-evaluation by your physician Discharge Instructions: - Discharge Summary Sheet rn - Foot Contusion rn Forms: - Medication Reconciliation Form rn - Thank You Letter rn - 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
--- NOTE | 2023-03-28 13:13 | ER ---
Nurse's Notes [facility] Name: Dway[facility] Jr Age: 52 yrs Sex: Male : 1970 Arrival Date: 03/28/2023 Time: 12:31 Bed 8 Private MD: Diagnosis: Pain in left toe(s);Contusion of left lesser toe(s) without damage to nail, initial encounter Presentation: 03/28 12:32 Chief complaint: Patient states: bumped left little toe on bed frame 2 days ago. Pt c/o aa5 pain to left toes. 12:32 Coronavirus screen: At this time, the client does not indicate any symptoms associated aa5 with coronavirus-19. Ebola Screen: Patient denies travel to an Ebola-affected area in the 21 days before illness onset. Initial Sepsis Screen: Does the patient meet any 2 criteria? HR > 90 bpm. Does the patient have a suspected source of infection? No. Patient's initial sepsis screen is negative. Risk Assessment: Do you want to hurt yourself or someone else? Patient reports no desire to harm self or others. Onset of symptoms was March 2023. 12:32 Acuity: FÉLIX 4 aa5 12:32 Method Of Arrival: EMS: [facility] aa5 Historical: - Allergies: 12:35 No Known Allergies; aa5 - Home Meds: 12:37 omeprazole 40 mg oral capsule,delayed release (e.c.) [Active]; rs5 hydrocodone-acetaminophen 7.5-325 mg oral tablet [Active]; hydroxyzine HCl 25 mg oral tablet [Active]; gabapentin 800 mg oral tablet [Active]; lisinopril 40 mg oral tablet [Active]; atorvastatin 20 mg oral tablet [Active]; Trulicity [Active]; Mavyret 100-40 mg oral tablet [Active]; - PMHx: 12:35 DVT; Hypertension; Pulmonary Embolism; Umbilical hernia; Borderline Diabetes; aa5 12:37 Hep C; rs5 - PSHx: 12:35 Leg surgery; Hernia; aa5 - Immunization history:: Adult Immunizations unknown. - Family history:: not pertinent. - Social history:: Smoking status: unknown. - Hospitalizations: : No recent hospitalization is reported. Screenin:40 [facility] ED Fall Risk Assessment (Adult) History of falling in the last 3 months, aa5 including since admission No falls in past 3 months (0 pts) Confusion or Disorientation No (0 pts) Intoxicated or Sedated No (0 pts) Impaired Gait No (0 pts) Mobility Assist Device Used No (0 pt) Altered Elimination No (0 pt) Score/Fall Risk Level 0 - 2 = Low Risk Oriented to surroundings, Maintained a safe environment, Educated pt \T\ family on fall prevention, incl call for assistance when getting out of bed. Abuse screen: Denies threats or abuse. Nutritional screening: No deficits noted. Tuberculosis screening: No symptoms or risk factors identified. Assessment: 12:37 General: Appears comfortable, Behavior is calm, cooperative. Pain: Complains of pain in aa5 left third toe, left fourth toe and left fifth toe Quality of pain is described as tender, throbbing, Pain began 2-3 days ago. Is continuous. Neuro: Level of Consciousness is awake, alert, obeys commands, Oriented to person, place, time, situation. Cardiovascular: Patient's skin is warm and dry. Respiratory: Airway is patent Respiratory effort is even, unlabored, Respiratory pattern is regular, symmetrical. GI: No signs and/or symptoms were reported involving the gastrointestinal system. : No signs and/or symptoms were reported regarding the genitourinary system. EENT: No signs and/or symptoms were reported regarding the EENT system. Derm: Skin is pink, warm \T\ dry. Bruising that is dark purple, on left fifth toe and web space between 4th and 5th toes. Musculoskeletal: Range of motion: intact in all extremities. Vital Signs: 12:32 BP 155 / 103; Pulse 91; Resp 18 S; Temp 98.2(TE); Pulse Ox 99% on R/A; Weight 97.52 kg aa5 (R); ED Course: 12:32 Patient arrived in ED. rn 12:32 Carlos Escoto MD is Attending Physician. rn 12:32 Arm band placed on Patient placed in an exam room, on a stretcher. aa5 12:32 Patient has correct armband on for positive identification. Bed in low position. Call aa5 light in reach. Side rails up X2. 12:33 Yudi Palacios RN is Primary Nurse. aa5 12:35 Triage completed. aa5 12:50 XRAY Foot LEFT 3 View In Process Unspecified. EDMS 13:19 Provided Education on: pain control. iw 13:19 No provider procedures requiring assistance completed. Patient did not have IV access iw during this emergency room visit. Administered Medications: 12:59 Drug: Ibuprofen PO 800 mg Route: PO; cm10 12:59 Drug: HYDROcodone-acetaminophen PO 5 mg-325 mg 1 tabs Route: PO; cm10 Medication: 13:19 VIS not applicable for this client. iw Outcome: 13:13 Discharge ordered by . rn 13:19 Discharged to home ambulatory. iw 13:19 Condition: good 13:19 Discharge instructions given to patient, Instructed on discharge instructions, follow up and referral plans. Demonstrated understanding of instructions, follow-up care. 13:20 Patient left the ED. iw Signatures: Dispatcher [employer] Kristi Sanchez RN CARLO iw Carlos Escoto MD MD rn Calderon, Audri RN RN aa5 Shay Pearl RN RN rs5 Diana Doty RN RN cm10 Corrections: (The following items were deleted from the chart) 12:36 12:35 Home Meds: Eliquis 5 mg Oral tablet once; aa5 aa5 12:51 12:37 Home Meds: omeprazole 40 mg Oral capsule,delayed release (e.c.); rs5 rs5 12:51 12:37 Home Meds: lisinopril 40 mg Oral tablet 1 tab; rs5 rs5 12:51 12:37 Home Meds: Eliquis 5 mg oral tablet; rs5 rs5 12:51 12:37 Home Meds: Trulicity subcutaneous; rs5 rs5
[2023-03-28 13:24] VITALS: BP 155/103; TEMP 98.2; O2SAT 99
== END 2023-03-28 13:20 | disposition home or self-care (01) ==
LOC: ER 12:31
DX: S90.122A Contusion of left lesser toe(s) without damage to nail, initial encounter (principal)
CPT/HCPCS: 99283

== ENCOUNTER 2023-07-07 07:47 | Inpatient (IN) | payer OTHER ==
--- OUTSIDE RECORDS SUMMARY | 2023-07-07 07:53 | XMS REPORT | Continuity of Care Document ---
:1970 Author Organization [facility] t Address [address] [place] [id number] [place] [id number] Care Team Providers Name Role Phone DIANA JIMENEZ Primary Care Physician Unavailable Diana Jimenez Attending Clinician Unavailable ADRIANO ALEXANDER Attending Clinician Unavailable Adriano Alexander MD Attending Clinician FILOMENA DARBY Attending Clinician Unavailable Filomena Darby MD Attending Clinician Doctor Unassigned, [place] Attending Clinician Unavailable Harinder Krueger MD Attending Clinician HARINDER KRUEGER Attending Clinician Unavailable Payers Payer Name Policy Type Policy Number Effective Date Expiration Date Abbey mendoza [facility] [id number] 2022 Common 00:00:00 [facility] [employer] [id number] 2019 Common (Medicaid) 00:00:00 [facility] Problems Condition Condition Condition Status Onset Resolution Last Treating Co mments Source Name Details Category Date Date Treatment Clinician Date Dyslipidem Dyslipidem Disease Active U nivers ia ia -18 ity of 00:00: [address] Essential Essential Disease Active Uni vers hypertensi hypertensi -06 it y of on on 00:00: [address] Chronic Chronic Disease Active Univers deep vein deep vein 04-27 [place]y [place] (DVT[place] of 00 Medica l popliteal popliteal Bran ch vein vein Chronic Chronic Disease Active Univers pulmonary pulmonary 04-27 ity of embolism embolism 00:00: [place] [address] Medical Branch No known No known Disease Unive rs active active ity of problems problems [facility] [id number] Body mass Problem Com mon index Spirit [BMI] - [facility] 34.0-34.9, [facility] [id number] Other Problem Common obesity Spirit due to - [facility] excess [id number] Type 2 Problem Common diabetes Spirit mellitus - [facility] with [facility] Center long-term current use of insulin [id number] Chronic Problem Commo n hepatitis Spirit C without - [facility] hepatic [facility] [id number] History of Problem Co mmon pulmonary Spirit embolism - [facility] [id number] Peripheral Problem Com mon polyneurop Spirit athy - [facility] [id number] HTN, goal Problem Comm on below Spirit 140/90 - [facility] [id number] Generalize Problem Com mon d anxiety Spirit disorder - [facility] [id number] Alcohol Problem Common abuse Spirit [facility] [id number] GERD Problem Common without Spirit esophagiti - [facility] [id number] Other Problem Common chronic Spirit pain - [facility] [id number] Mixed Problem Common hyperlipid Spirit emia - [facility] [id number] Depression Problem Co mmon with Spirit anxiety - [facility] Allergies, Adverse Reactions, Alerts Allergy Allergy Status Severity Reaction(s) Onset Inactive Treating Comm ents Source Name Type Date Date Clinician NO KNOWN Drug Active Univers ALLERGIE Class ity of S [facility] Social History Social Habit Start Date Stop Date Quantity Comments Source History SDOH University o f Alcohol Std [place] [facility] Drinks Branch History SDOH University o f Alcohol Binge [place] Medic al [place] History of Common Spirit - Tobacco Use [facility] Sex Assigned At Common Sp valerie - [facility] Exposure to 2022-08-14 2022-08-24 Not sure University of SARS-CoV-2 00:00:00 14:49:00 [facility] (event) Branch Alcohol intake 2022-08-03 2022-08-03 Lifetime University of 00:00:00 00:00:00 non-drinker [facility] (finding) Branch Tobacco use and 2022-08-03 2022-08-03 Smokeless tobacco Un iversity of exposure 00:00:00 00:00:00 non-user [facility] Branch History SDOH 2021-12-21 2021-12-21 1 University o f Alcohol Frequency 00:00:00 00:00:00 [facility] edical [place] Alcohol Comment 2018-04-27 2018-04-27 3 glasses of Univers ity of 00:00:00 00:00:00 liquor /5 days a [facility] dic week Branch Smoking Status Start Date Stop Date Source Never smoked tobacco [facility] Medications Ordered Filled Start Stop Current Ordering [...] 2-13 by mouth ity of 14:20: daily. [place] [facility] hydroCHLORO 2021-08 Yes 12.5mg Take [...] ity o f tablet 00:00: in the [place] 00 morning. Medical Branch pantoprazol 2021-08 Yes 40mg Take 40 mg Univers e 40 mg EC 1-29 by mouth ity o f tablet 00:00: in the [place] morning. Medical Branch pantoprazol 2021-08 Yes 40mg Take 40 mg Univers e 40 mg EC 1-29 by mouth ity o f tablet 00:00: in the [place] morning. Medical Branch pantoprazol 2021-08 Yes 40mg Take 40 mg Univers e 40 mg EC 1-29 by mouth ity o f tablet 00:00: in the [place] morning. Medical Branch hydrOXYzine 2021-08 Yes TAKE 1 Univ ers 25 mg 1-21 TABLET BY ity of tablet 00:00: [facility] 00 EVERY 8 Medical HOURS Branch NEEDED FOR ANXIETY hydrOXYzine 2021-08 Yes TAKE 1 Univ ers 25 mg 1-21 TABLET BY ity of tablet 00:00: MOUTH [place] EVERY 8 Medical HOURS Branch NEEDED FOR ANXIETY hydrOXYzine 2021-08 Yes TAKE 1 Univ ers 25 mg 1-21 TABLET BY ity of tablet 00:00: MOUTH [place] 00 EVERY 8 Medical HOURS Branch NEEDED FOR ANXIETY hydrOXYzine 2021-08 Yes TAKE 1 Univ ers 25 mg 1-21 TABLET BY ity of tablet 00:00: MOUTH [place] 00 EVERY 8 Medical HOURS Branch NEEDED FOR ANXIETY methylPREDN 0 Yes [id number] 84mg Take 21 Univers ISolone 5-27 tablets by ity of (MEDROL, 00:00: mouth [place] RITU,) 4 mg 00 SEE-INSTRU Med ical tablets CTIONS. Branch follow package directions methylPREDN 2021-0 Yes [id number] 84mg Take 21 Univers ISolone 5-27 tablets by ity of (MEDROL, 00:00: mouth [place] RITU,) 4 mg 00 SEE-INSTRU Med ical tablets CTIONS. Branch follow package directions methylPREDN 2021-0 Yes [id number] 84mg Take 21 Univers ISolone 5-27 tablets by ity of (MEDROL, 00:00: mouth [place] RITU,) 4 mg 00 SEE-INSTRU Med ical tablets CTIONS. Branch follow package directions methylPREDN 2021-0 Yes [id number] 84mg Take 21 Univers ISolone 5-27 tablets by ity of (MEDROL, 00:00: mouth [place] RITU,) 4 mg 00 SEE-INSTRU Med ical tablets CTIONS. Branch follow package directions methylPREDN 2021-0 Yes [id number] 84mg Take 21 Univers ISolone 5-27 tablets by ity of (MEDROL, 00:00: mouth [place] RITU,) 4 mg 00 SEE-INSTRU Med ical tablets CTIONS. Branch follow package directions methylPREDN 2021-0 Yes [id number] 84mg Take 21 Univers ISolone 5-27 tablets by ity of (MEDROL, 00:00: mouth [place] RITU,) 4 mg 00 SEE-INSTRU Med ical tablets CTIONS. Branch follow package directions methylPREDN 2021-0 Yes [id number] 84mg Take 21 Univers ISolone 5-27 tablets by ity of (MEDROL, 00:00: mouth [place] RITU,) 4 mg 00 SEE-INSTRU Med ical tablets CTIONS. Branch follow package directions colchicine 0 2021- No [id number] .6mg Take 0.6 Univers 0.6 mg Cap 5-27 06-07 mg by ity of 00:00: 04:59 mouth 2 [place] 00 :00 ([facility]) Medical times [place] daily for 10 days. colchicine 2021-0 2021- No [id number] .6mg Take 0.6 Univers 0.6 mg Cap 5-27 06-07 mg by ity of 00:00: 04:59 mouth 2 [place] 00 :00 ([facility]) [facility] times [place] daily for 10 days. lisinopriL 2021-0 Yes 40mg Take 40 mg U nivers 40 mg 3-21 by mouth ity of tablet 00:00: daily. [address] atorvastati 2021-0 Yes 20mg Take 20 mg Univers n 20 mg 3-21 by mouth ity of tablet 00:00: daily. [address] ELIQUIS 5 2021-0 Yes 5mg Take 5 mg Uni vers mg tablet 3-21 by mouth ity of 00:00: daily. [address] lisinopriL 2021-0 Yes 40mg Take 40 mg U nivers 40 mg 3-21 by mouth ity of tablet 00:00: daily. [facility] Branch atorvastati 2021-0 Yes 20mg Take 20 mg Univers n 20 mg 3-21 by mouth ity of tablet 00:00: daily. Medical Branch ELIQUIS 5 0 Yes 5mg Take 5 mg Uni vers mg tablet 3-21 by mouth ity of 00:00: daily. [facility] Branch lisinopriL 2021-0 Yes 40mg Take 40 mg U nivers 40 mg 3-21 by mouth ity of tablet 00:00: daily. [facility] Branch lisinopriL 2021-0 Yes 40mg Take 40 mg U nivers 40 mg 3-21 by mouth ity of tablet 00:00: daily. [facility] Branch atorvastati 0 Yes 20mg Take 20 mg Univers n 20 mg 3-21 by mouth ity of tablet 00:00: daily. [facility] Branch ELIQUIS 5 2021-0 Yes 5mg Take 5 mg Uni vers mg tablet 3-21 by mouth ity of 00:00: daily. [facility] Branch lisinopriL 0 Yes 40mg Take 40 mg U nivers 40 mg 3-21 by mouth ity of tablet 00:00: daily. [facility] Branch atorvastati 0 Yes 20mg Take 20 mg Univers n 20 mg 3-21 by mouth ity of tablet 00:00: daily. [facility] Branch ELIQUIS 5 0 Yes 5mg Take 5 mg Uni vers mg tablet 3-21 by mouth ity of 00:00: daily. [facility] Branch lisinopriL 2021-0 Yes 40mg Take 40 mg U nivers 40 mg 3-21 by mouth ity of tablet 00:00: daily. [facility] Branch atorvastati 0 Yes 20mg Take 20 mg Univers n 20 mg 3-21 by mouth ity of tablet 00:00: daily. [facility] Branch ELIQUIS 5 2021-0 Yes 5mg Take 5 mg Uni vers mg tablet 3-21 by mouth ity of 00:00: daily. [place] [facility] Branch lisinopriL 2021-0 Yes 40mg Take 40 mg U nivers 40 mg 3-21 by mouth ity of tablet 00:00: daily. [facility] Branch atorvastati 2022-0 Yes 20mg Take 20 mg Univers n 20 mg 3-21 by mouth ity of tablet 00:00: daily. [facility] Branch atorvastati 0 Yes 20mg Take 20 mg Univers n 20 mg 3-21 by mouth ity of tablet 00:00: daily. [place] [facility] ELIQUIS 5 0 Yes 5mg Take 5 mg Uni vers mg tablet 3-21 by mouth ity of 00:00: daily. [place] [facility] Branch lisinopriL 0 Yes 40mg Take 40 mg U nivers 40 mg 3-21 by mouth ity of tablet 00:00: daily. [place] [facility] atorvastati 0 Yes 20mg Take 20 mg Univers n 20 mg 3-21 by mouth ity of tablet 00:00: daily. [place] [facility] ELIQUIS 5 0 Yes 5mg Take 5 mg Uni vers mg tablet 3-21 by mouth ity of 00:00: daily. [place] [facility] lisinopriL 0 Yes 40mg Take 40 mg U nivers 40 mg 3-21 by mouth ity of tablet 00:00: daily. [place] [facility] atorvastati 0 Yes 20mg Take 20 mg Univers n 20 mg 3-21 by mouth ity of tablet 00:00: daily. [place] [facility] ELIQUIS 5 0 Yes 5mg Take 5 mg Uni vers mg tablet 3-21 by mouth ity of 00:00: daily. [place] [facility] ELIQUIS 5 0 Yes 5mg Take 5 mg Uni vers mg tablet 3-21 by mouth ity of 00:00: daily. [place] [facility] HydrOXYzine HydrOXYzine 2020-0 Yes Diana 1 tablet Common HCl HCl 8-04 Jimenez as needed Spirit 00:00: - [facility] 00 [facility] Diphenhydra Diphenhydra 2020-0 No 25mg Common mine mine 1-07 Spirit 00:00: - [facility]I 00 [facility] Diphenhydra Diphenhydra 2020-0 No 25mg Common mine mine 1 Spirit 00:00: - [facility]I 00 [facility] Diphenhydra Diphenhydra 2020-0 No 25mg Common mine mine 1 Spirit 00:00: - [facility]I 00 [facility] Diphenhydra Diphenhydra 2020-0 No 25mg Common mine mine 08-28 Spirit 00:00: - [facility]I 00 [facility] Diphenhydra Diphenhydra 2020-0 No 25mg Common mine mine 08-28 Spirit 00:00: - [facility]I 00 [facility] Diphenhydra Diphenhydra 2020-0 No 25mg Common mine mine 08-28 Spirit 00:00: - [facility]I 00 [facility] Diphenhydra Diphenhydra 2020-0 No 25mg Common mine mine 08-28 Spirit 00:00: - CHI 00 [facility] Diphenhydra Diphenhydra 2020-0 No 25mg Common mine mine 08-28 Spirit 00:00: - CHI 00 [facility] Diphenhydra Diphenhydra 2020-0 No 25mg Common mine mine 08-28 Spirit 00:00: - CHI 00 [facility] Diphenhydra Diphenhydra 2020-0 No 25mg Common mine mine 08-28 Spirit 00:00: - CHI 00 [facility] Diphenhydra Diphenhydra 2020-0 No 25mg Common mine mine 08-28 Spirit 00:00: - CHI 00 [facility] Diphenhydra Diphenhydra 2020-0 No 25mg Common mine mine 08-28 Spirit 00:00: - [facility]I 00 [facility] Diphenhydra Diphenhydra 2020-0 No 25mg Common mine mine 08-28 Spirit 00:00: - CHI 00 [facility] Diphenhydra Diphenhydra 2020-0 No 25mg Common mine mine 08-28 Spirit 00:00: - CHI 00 [facility] Diphenhydra Diphenhydra 2020-0 No 25mg Common mine mine 08-28 Spirit 00:00: - CHI 00 [facility] Diphenhydra Diphenhydra 2020-0 No 25mg Common mine mine 08-28 Spirit 00:00: - CHI 00 [facility] Diphenhydra Diphenhydra 2020-0 No 25mg Common mine mine 08-28 Spirit 00:00: - [facility]I 00 [facility] acetaminoph 2018-1 Yes 1{tbl} Take 1 Un gavin en-codeine [...] BY ity of tablet 00:00: MOUTH ONCE [place] 00 DAILY Medical Branch LISINOPRIL 2017-08 Yes TAKE 1 Unive rs 20 mg 2-06 TABLET BY ity of tablet 00:00: MOUTH ONCE [place] DAILY Medical Branch LISINOPRIL 2017-08 Yes TAKE 1 Unive rs 20 mg 2-06 TABLET BY ity of tablet 00:00: MOUTH ONCE [place] DAILY Medical Branch LISINOPRIL 2017-08 Yes TAKE 1 Unive rs 20 mg 2-06 TABLET BY ity of tablet 00:00: MOUTH ONCE [place] DAILY Medical Branch LISINOPRIL 2017-08 Yes TAKE 1 Unive rs 20 mg 2-06 TABLET BY ity of tablet 00:00: MOUTH ONCE [place] 00 DAILY Medical Branch LISINOPRIL 2017-08 Yes TAKE 1 Unive rs 20 mg 2-06 TABLET BY ity of tablet 00:00: MOUTH ONCE [place] 00 DAILY Medical Branch LISINOPRIL 2017-08 Yes TAKE 1 Unive rs 20 mg 2-06 TABLET BY ity of tablet 00:00: MOUTH ONCE [place] 00 DAILY Medical Branch acetaminoph 2017-08 Yes [...] -26 by mouth ity of 15:32: daily. [place] [...] 1-26 by mouth ity of 15:32: daily. [place] [address] Medical Branch hydroCHLORO 2017-08 Yes 12.5mg Take [...] 1-26 by mouth ity of 15:32: daily. [place] [address] Medical Branch hydroCHLORO 2017-08 Yes 12.5mg Take 12.5 Univers thiazide 1-26 mg by ity of 12.5 mg 15:32: mouth [place] capsule 49 daily. Medical Branch acetaminoph 2017-08 Yes Take by Uni vers en with 1-26 mouth ity of codeine 15:32: every 6 [place] (TYLENOL-CO 49 (six) Medical DEINE #3 hours as Branch ORAL) needed (Pain). apixaban 2017- Yes 5mg Take 5 mg Univ ers [...] Take 5 mg Univ ers (ELIQUIS) 5 -06 by mouth 2 it y of mg (74 00:00: (two) [place] tabs) DsPk 00 times Medical daily. Branch apixaban 2018-0 Yes 5mg Take 5 mg Univ ers (ELIQUIS) 5 -06 by mouth 2 it y of mg (74 00:00: (two) [place] tabs) DsPk 00 times Medical daily. Branch Gabapentin Gabapentin Yes Diana 1 tablet Common Jimenez [facility] Atorvastati Atorvastati Yes Diana 1 tablet Common n Calcium n Calcium Jimenez Spir it - CHI [facility] Omeprazole Omeprazole Yes Diana 1 capsule Common Jimenez 30 minutes Spirit before - CHI morning [facility] [place] Yes Diana 1 tablet Common Jimenez as needed [facility] Eliquis Eliquis Yes Diana TAKE 1 Commo n Jimenez TABLET BY Spirit MOUTH - CHI EVERY DAY [facility] Lisinopril Lisinopril Yes Diana 1 tablet Common Jimenez [facility] Cyclobenzap Cyclobenzap Yes Diana 1 tablet Common rine HCl rine HCl Jimenez as needed S pirit [facility] Lisinopril Lisinopril Yes Diana TAKE 1 Common Jimenez TABLET BY Spirit MOUTH ONCE - CHI DAILY [facility] Eliquis 5 Eliquis 5 No 1{table QD Eliquis 5 MG MG t} MG Omeprazole Omeprazole No QD Omeprazole 40 MG 40 MG 40 MG [place] No 1{table [place] 7.5-325 MG 7.5-325 MG t_as_ne 7.5-325 MG [...] Lisinopril 40 MG 40 MG 40 MG [place] No 1{table [place] 7.5-325 MG 7.5-325 MG t_as_ne 7.5-325 MG [...] QD Eliquis 5 MG MG t} MG [place] No 1{table [place] 7.5-325 MG 7.5-325 MG t_as_ne 7.5-325 MG [...] Calcium 20 MG 20 MG 20 MG [place] No 1{table [place] 7.5-325 MG 7.5-325 MG t_as_ne 7.5-325 MG [...] Calcium 20 MG 20 MG 20 MG [place] No 1{table [place] 7.5-325 MG 7.5-325 MG t_as_ne 7.5-325 MG [...] 40 MG 40 MG t} 40 MG [place] No 1{table [place] 7.5-325 MG 7.5-325 MG t_as_ne 7.5-325 MG [...] 40 MG 40 MG t} 40 MG [place] No 1{table [place] 7.5-325 MG 7.5-325 MG t_as_ne 7.5-325 MG [...] 40 MG 40 MG t} 40 MG [place] No 1{table [place] 7.5-325 MG 7.5-325 MG t_as_ne 7.5-325 MG [...] 800 MG 800 MG t} 800 MG [place] No 1{table [place] 7.5-325 MG 7.5-325 MG t_as_ne 7.5-325 MG [...] 800 MG 800 MG t} 800 MG [place] No 1{table [place] 7.5-325 MG 7.5-325 MG t_as_ne 7.5-325 MG [...] 800 MG 800 MG t} 800 MG [place] No 1{table [place] 7.5-325 MG 7.5-325 MG t_as_ne 7.5-325 MG [...] MG MG dtime_a 5 MG s_neede d} [place] No 1{table [place] 7.5-325 MG 7.5-325 MG t_as_ne 7.5-325 MG [...] ISolone 4 NISolone 4 MG MG MG [place] No 1{table [place] 7.5-325 MG 7.5-325 MG t_as_ne 7.5-325 MG [...] MG MG dtime_a 5 MG s_neede d} [place] No 1{table [place] 7.5-325 MG 7.5-325 MG t_as_ne 7.5-325 MG [...] Omeprazole 40 MG 40 MG 40 MG [place] No 1{table QD [place] 10-5 MG 10-5 MG t_in_th 10-5 MG e_morni ng} [place] Gly[place] No 1{table QD [place] 10-5 MG 10-5 MG t_in_th 10-5 MG e_morni ng} Eliquis 5 Eliquis 5 No 1{table QD Eliquis 5 MG MG t} MG Lisinopril Lisinopril No Lisinopril 40 MG 40 MG 40 MG hydrOXYzine hydrOXYzine No 1{table hydrOXYzin HCl 25 MG HCl 25 MG t_as_ne e HCl 25 eded} MG Atorvastati Atorvastati No 1{table QD Atorvastat n Calcium n Calcium t} in Calcium 20 MG 20 MG 20 MG Cyclobenzap Cyclobenzap No 1{table QD Cyclobenza rine HCl 5 rine HCl 5 t_at_be afua HCl MG MG dtime_a 5 MG s_neede d} Atorvastati Atorvastati No Atorvastat n Calcium n Calcium in Calcium 20 MG 20 MG 20 MG Trulicity Trulicity No Trulicity [place] No 1{table [place] 7.5-325 MG 7.5-325 MG t_as_ne 7.5-325 MG eded} Gabapentin Gabapentin No Gabapentin 800 MG 800 MG 800 MG Lisinopril Lisinopril No 1{table QD Lisinopril 40 MG 40 MG t} 40 MG hydrOXYzine hydrOXYzine No hydrOXYzin HCl 25 MG HCl 25 MG e HCl 25 MG Omeprazole Omeprazole No QD Omeprazole 40 MG 40 MG 40 MG [place] Glyxambi No 1{table QD [place] 10-5 MG 10-5 MG t_in_th 10-5 MG e_morni ng} [place] Glyxambi No 1{table QD [place] 10-5 MG 10-5 MG t_in_th 10-5 MG e_morni ng} Eliquis 5 Eliquis 5 No 1{table QD Eliquis 5 MG MG t} MG Lisinopril Lisinopril No Lisinopril 40 MG 40 MG 40 MG hydrOXYzine hydrOXYzine No 1{table hydrOXYzin HCl 25 MG HCl 25 MG t_as_ne e HCl 25 eded} MG Atorvastati Atorvastati No 1{table QD Atorvastat n Calcium n Calcium t} in Calcium 20 MG 20 MG 20 MG Cyclobenzap Cyclobenzap No 1{table QD Cyclobenza rine HCl 5 rine HCl 5 t_at_be afua HCl MG MG dtime_a 5 MG s_neede d} Atorvastati Atorvastati No Atorvastat n Calcium n Calcium in Calcium 20 MG 20 MG 20 MG Trulicity Trulicity No Trulicity [place] No 1{table [place] 7.5-325 MG 7.5-325 MG t_as_ne 7.5-325 MG eded} Gabapentin Gabapentin No Gabapentin 800 MG 800 MG 800 MG Lisinopril Lisinopril No 1{table QD Lisinopril 40 MG 40 MG t} 40 MG hydrOXYzine hydrOXYzine No hydrOXYzin HCl 25 MG HCl 25 MG e HCl 25 MG Omeprazole Omeprazole No QD Omeprazole 40 MG 40 MG 40 MG [place] Gly[place] No 1{table QD [place] 10-5 MG 10-5 MG t_in_th 10-5 MG e_morni ng} [place] Gly[place] No 1{table QD [place] 10-5 MG 10-5 MG t_in_th 10-5 MG e_morni ng} Eliquis 5 Eliquis 5 No 1{table QD Eliquis 5 MG MG t} MG Lisinopril Lisinopril No Lisinopril 40 MG 40 MG 40 MG hydrOXYzine hydrOXYzine No 1{table hydrOXYzin HCl 25 MG HCl 25 MG t_as_ne e HCl 25 eded} MG Atorvastati Atorvastati No 1{table QD Atorvastat n Calcium n Calcium t} in Calcium 20 MG 20 MG 20 MG Cyclobenzap Cyclobenzap No 1{table QD Cyclobenza rine HCl 5 rine HCl 5 t_at_be afua HCl MG MG dtime_a 5 MG s_neede d} Atorvastati Atorvastati No Atorvastat n Calcium n Calcium in Calcium 20 MG 20 MG 20 MG Trulicity Trulicity No Trulicity [place] No 1{table [place] 7.5-325 MG 7.5-325 MG t_as_ne 7.5-325 MG eded} Gabapentin Gabapentin No Gabapentin 800 MG 800 MG 800 MG Lisinopril Lisinopril No 1{table QD Lisinopril [...] Calcium 20 MG 20 MG 20 MG [place] No 1{table [place] 7.5-325 MG 7.5-325 MG t_as_ne 7.5-325 MG [...] MG 20 MG 20 MG Immunizations Ordered Filled Immunization Date Status Comments Sourc e Immunization Name Name Ez Hui 2022-07-29 Completed [facility] 15:22:00 [facility] Ez Hui 2022-07-29 Completed [facility] 15:22:00 [facility] Flucelvax - single Flucelvax - single 2022-07-29 Completed [facility] dose syringe dose syringe 15:21:00 [facility] Flucelvax - single Flucelvax - single 2022-07-29 Completed [facility] dose syringe dose syringe 15:21:00 [facility] Pneumovax (PPSV23) Pneumovax (PPSV23) 2021-03-30 Completed [facility] 14:37:00 [facility] Pneumovax (PPSV23) Pneumovax (PPSV23) 2021-03-30 Completed [facility] 14:37:00 [facility] Pneumovax (PPSV23) Pneumovax (PPSV23) 2021-03-30 Completed [facility] 14:37:00 [facility] Pneumovax (PPSV23) Pneumovax (PPSV23) 2021-03-30 Completed [facility] 14:37:00 [facility] Pneumovax (PPSV23) Pneumovax (PPSV23) 2021-03-30 Completed [facility] 14:37:00 [facility] Pneumovax (PPSV23) Pneumovax (PPSV23) 2021-03-30 Completed [facility] 14:37:00 [facility] Pneumovax (PPSV23) Pneumovax (PPSV23) 2021-03-30 Completed [facility] 14:37:00 [facility] Pneumovax (PPSV23) Pneumovax (PPSV23) 2021-03-30 Completed [facility] 14:37:00 [facility] Pneumovax (PPSV23) Pneumovax (PPSV23) 2021-03-30 Completed [facility] 14:37:00 [facility] Pneumovax (PPSV23) Pneumovax (PPSV23) 2021-03-30 Completed [facility] 14:37:00 [facility] Pneumovax (PPSV23) Pneumovax (PPSV23) 2021-03-30 Completed [facility] 14:37:00 [facility] Pneumovax (PPSV23) Pneumovax (PPSV23) 2021-03-30 Completed [facility] 14:37:00 [facility] Pneumovax (PPSV23) Pneumovax (PPSV23) 2021-03-30 Completed [facility] 14:37:00 [facility] Pneumovax (PPSV23) Pneumovax (PPSV23) 2021-03-30 Completed [facility] 14:37:00 [facility] Pneumovax (PPSV23) Pneumovax (PPSV23) 2021-03-30 Completed [facility] 14:37:00 [facility] Afluria single dose Afluria single dose 2020-06-12 Completed [facility] 15:26:00 [facility] Afluria single dose Afluria single dose 2020-06-12 Completed [facility] 15:26:00 [facility] Afluria single dose Afluria single dose 2020-06-12 Completed [facility] 15:26:00 [facility] Afluria single dose Afluria single dose 2020-06-12 Completed [facility] 15:26:00 [facility] Afluria single dose Afluria single dose 2020-06-12 Completed [facility] 15:26:00 [facility] Afluria single dose Afluria single dose 2020-06-12 Completed [facility] 15:26:00 [facility] Afluria single dose Afluria single dose 2020-06-12 Completed [facility] 15:26:00 [facility] Afluria single dose Afluria single dose 2020-06-12 Completed [facility] 15::00 [facility] Afluria single dose Afluria single dose 2020-06-12 Completed [facility] 15:26:00 - [facility] Afluria single dose Afluria single dose 2020-06-12 Completed [facility] 15:26:00 [facility] Afluria single dose Afluria single dose 2020-06-12 [facility]pleted [facility] 15:26:00 [facility] Afluria single dose Afluria single dose 2020-06-12 Completed [facility] 15::00 [facility] Afluria single dose Afluria single dose 2020-06-12 Completed [facility] 15::00 [facility] Afluria single dose Afluria single dose 2020-06-12 Completed [facility] 15::00 - [facility] Afluria single dose Afluria single dose 2020-06-12 Completed [facility] 15:26:00 [facility] Afluria single dose Afluria single dose 2019-08-28 Completed [facility] 13:24:00 [facility] Afluria single dose Afluria single dose 2019-08-28 Completed [facility] 13:24:00 [facility] Afluria single dose Afluria single dose 2019-08-28 Completed [facility] 13:24:00 [facility] Afluria single dose Afluria single dose 2019-08-28 Completed [facility] 13:24:00 [facility] Afluria single dose Afluria single dose 2019-08-28 Completed [facility] 13:24:00 [facility] Afluria single dose Afluria single dose 2019-08-28 Completed [facility] 13:24:00 [facility] Afluria single dose Afluria single dose 2019-08-28 Completed [facility] 13:24:00 [facility] Afluria single dose Afluria single dose 2019-08-28 Completed [facility] 13:24:00 [facility] Afluria single dose Afluria single dose 2019-08-28 Completed [facility] 13:24:00 [facility] Afluria single dose Afluria single dose 2019-08-28 Completed [facility] 13:24:00 [facility] Afluria single dose Afluria single dose 2019-08-28 Completed [facility] 13:24:00 [facility] Afluria single dose Afluria single dose 2019-08-28 Completed [facility] 13:24:00 [facility] Afluria single dose Afluria single dose 2019-08-28 Completed [facility] 13:24:00 [facility] Afluria single dose Afluria single dose 2019-08-28 Completed [facility] 13:24:00 [facility] Afluria single dose Afluria single dose 2019-08-28 Completed [facility] 13:24:00 [facility] Afluria single dose Afluria single dose Unknown Completed [facility] [place] Afluria single dose Afluria single dose Unknown Completed [facility] Fluarix Fluarix Unknown Completed [facility] Shingrix Shingrix Unknown Completed [facility] Flucelvax - single Flucelvax - single Unknown Completed [facility] dose syringe dose [facility] Pneumovax (PPSV23) Pneumovax (PPSV23) Unknown Completed [facility] [place] Afluria single dose Afluria single dose Unknown Completed [facility] [place] Afluria single dose Afluria single dose Unknown Completed [facility] Fluarix Fluarix Unknown Completed [facility] Shingrix Shingrix Unknown Completed [facility] Flucelvax - single Flucelvax - single Unknown Completed [facility] dose syringe dose syringe [facility] Pneumovax (PPSV23) Pneumovax (PPSV23) Unknown Completed [facility] [place] Afluria single dose Afluria single dose Unknown Completed [facility] Afluria single dose Afluria single dose Unknown Completed [facility] Fluarix Fluarix Unknown Completed [facility] Shingrix Shingrix Unknown Completed [facility] Flucelvax - single Flucelvax - single Unknown Completed [facility] [place] [place] dose syringe dose syringe [facility] Pneumovax (PPSV23) Pneumovax (PPSV23) Unknown Completed [facility] [place] Vital Signs Vital Name Observation Time Observation Value Comments Source height 2022-10-25 15:30:00 65.5 [in_i] [facility] weight 2022-10-25 15:30:00 226.6 [lb_av] [facility] temperature 2022-10-25 15:30:00 97.3 [degF] [facility] bmi 2022-10-25 15:30:00 37.13 kg/m2 [facility] oximetry 2022-10-25 15:30:00 97 % [facility] respiratory rate 2022-10-25 15:30:00 17 /min Comm on [facility] blood pressure 2022-10-25 15:30:00 124 mm[Hg] [facility] systolic [facility] blood pressure 2022-10-25 15:30:00 72 mm[Hg] [facility] diastolic [facility] Systolic blood 2022-08-24 21:00:00 156 mm[Hg] Univer sity of pressure [facility] Diastolic blood 2022-08-24 21:00:00 97 mm[Hg] Unive rsity of [facility] Heart rate 2022-08-24 20:57:00 83 /min [facility] Body temperature 2022-08-24 20:57:00 36.67 Evette [facility] Res[facility] 2022-08-24 20:57:00 16 /min [facility] Body height 2022-08-24 20:57:00 170.2 cm [facility] Body weight 2022-08-24 20:57:00 104.781 kg [facility] BMI 2022-08-24 20:57:00 36.18 kg/m2 [facility] Oxygen saturation in 2022-08-24 20:57:00 96 /min [facility] of Arterial blood by [facility] Pulse oximetry Branch Systolic blood 2022-08-03 20:16:00 155 mm[Hg] Univer sity of pressure [facility] Diastolic blood 2022-08-03 20:16:00 96 mm[Hg] Unive rsity of pressure [facility] Heart rate 2022-08-03 20:16:00 92 /min Universi ty [facility] Body temperature 2022-08-03 20:15:00 37 Evette Univ ersity [facility] Respiratory rate 2022-08-03 20:15:00 18 /min [facility] Body height 2022-08-03 20:15:00 170.2 cm Universi ty [facility] Body weight 2022-08-03 20:15:00 101.696 kg [facility] BMI 2022-08-03 20:15:00 35.11 kg/m2 [facility] Oxygen saturation in 2022-08-03 20:15:00 94 /min [facility] Arterial blood by [facility] Pulse oximetry Branch height 2022-07-29 15:20:00 65.5 [in_i] [facility] weight 2022-07-29 15:20:00 225.9 [lb_av] [facility] temperature 2022-07-29 15:20:00 97.7 [degF] [facility] bmi 2022-07-29 15:20:00 37.02 kg/m2 [facility] oximetry 2022-07-29 15:20:00 98 % [facility] respiratory rate 2022-07-29 15:20:00 18 /min Comm on [facility] blood pressure 2022-07-29 15:20:00 139 mm[Hg] [facility] - systolic [facility] blood pressure 2022-07-29 15:20:00 77 mm[Hg] [facility] - diastolic [facility] height 2022-05-04 11:20:00 65.5 [in_i] Common [facility] weight 2022-05-04 11:20:00 213 [lb_av] [facility] bmi 2022-05-04 11:20:00 34.9 kg/m2 [facility] height 2022-03-24 15:40:00 65.5 [in_i] Common [facility] weight 2022-03-24 15:40:00 213 [lb_av] Common [facility] temperature 2022-03-24 15:40:00 99.0 [degF] [facility] bmi 2022-03-24 15:40:00 34.9 kg/m2 [facility] oximetry 2022-03-24 15:40:00 95 % [facility] respiratory rate 2022-03-24 15:40:00 16 /min [facility] blood pressure 2022-03-24 15:40:00 134 mm[Hg] [facility] - systolic [facility] blood pressure 2022-03-24 15:40:00 88 mm[Hg] [facility] - diastolic [facility] Systolic blood 2022-01-15 15:31:00 145 mm[Hg] Univer sity of pressure [facility] Diastolic blood 2022-01-15 15:31:00 91 mm[Hg] Unive rsity of pressure [facility] Heart rate 2022-01-15 15:31:00 90 /min [facility] Oxygen saturation in 2022-01-15 15:31:00 95 /min [facility] Arterial blood by [facility] Pulse oximetry Branch Body height 2022-01-15 15:22:00 167.6 cm [facility] Body weight 2022-01-15 15:22:00 [facility] 2022-01-15 15:22:00 35.65 kg/m2 [facility] height 2021-12-23 14:20:00 67 [in_i] [facility] weight 2021-12-23 14:20:00 215.5 [lb_av] Common [facility] temperature 2021-12-23 14:20:00 98.0 [degF] [facility] bmi 2021-12-23 14:20:00 33.75 kg/m2 [facility] oximetry 2021-12-23 14:20:00 96 % [facility] respiratory rate 2021-12-23 14:20:00 17 /min [facility] blood pressure 2021-12-23 14:20:00 132 mm[Hg] [facility] - systolic [facility] blood pressure 2021-12-23 14:20:00 87 mm[Hg] [facility] diastolic [facility] Systolic blood 2021-12-21 20:39:00 153 mm[Hg] Univer sity of pressure [facility] Diastolic blood 2021-12-21 20:39:00 74 mm[Hg] Unive rsity of [facility] Heart rate 2021-12-21 20:39:00 87 /min [facility] Body height 2021-12-21 20:39:00 170.2 cm [facility] Body weight 2021-12-21 20:39:00 63.05 kg [facility] BMI 2021-12-21 20:39:00 21.77 kg/m2 [facility] height 2021-07-02 14:20:00 67 [in_i] Common [facility] weight 2021-07-02 14:20:00 205 [lb_av] [facility] temperature 2021-07-02 14:20:00 98 [degF] [facility] bmi 2021-07-02 14:20:00 32.1 kg/m2 [facility] blood pressure 2021-07-02 14:20:00 128 mm[Hg] [facility] - systolic [facility] blood pressure 2021-07-02 14:20:00 78 mm[Hg] [facility] diastolic [facility] Procedures Procedure Date / Time Performed Performing Clinician Sourc e REFERRAL- 2022-07-06 06:01:00 [facility] Name [facility] Branch SCANNED LAB RESULTS 2021-12-28 05:01:00 [facility], [facility] Encounters Start End Encounter Admission Attending Care Care Encounter Source Date/Time Date/Time Type Type Clinicians Facility Department ID 2023-06-02 Outpatient Jimenez, STLMLC STLMLC [id number] [facility] 16:21:00 Diana 25032 [facility] 2022-10-25 Outpatient Jimenez, STLMLC STLMLC [id number] Common 14:53:01 Diana 50983 [facility] 2022-07-28 Outpatient Jimenez, STLMLC STLMLC [id number] Common 15:02:01 Diana 42921 [facility] 2022-06-29 Outpatient Jimenez, STLMLC STLMLC [id number] [facility] 15:13:00 Diana 41531 [facility] 2022-03-25 Outpatient Jimenez, STLMLC STLMLC [id number] Common 12:17:00 Diana 00858 [facility] 2022-03-04 Outpatient Jimenez, STLMLC STLMLC [id number] Common 13:08:00 Diana [facility] 2021-12-24 Outpatient Jimenez, STLMLC STLMLC [id number] Common 08:55:00 Diana [facility] 2021-10-21 Outpatient Jimenez, STLMLC STLMLC [id number] Common 10:55:01 Diana [facility] 2021-10-12 Outpatient Jimenez, STLMLC STLMLC [id number] Common 09:48:01 Diana [facility] 2021-10-08 Outpatient Jimenez, STLMLC STLMLC [id number] Common 11:48:01 Diana [facility] 2021-09-16 Outpatient Jimenez, STLMLC STLMLC [id number] Common 14:12:10 Diana 23822 [facility] 2021-09-16 Outpatient Jimenez, STLMLC STLMLC [id number] Common 13:35:35 Diana 60648 [facility] 2021-09-16 Outpatient Jimenez, STLMLC STLMLC [id number] Common 12:59:49 Diana 33605 [facility] 2021-09-16 Outpatient Jimenez, STLMLC STLMLC [id number] Common 12:53:40 Diana 97705 [facility] 2021-09-16 Outpatient Jimenez, STLMLC STLMLC [id number] Common 12:24:31 Diana 04537 [facility] 2021-09-16 Outpatient Jimenez, STLMLC STLMLC [id number] Common 11:58:12 Diana 15860 [facility] 2021-09-16 Outpatient Jimenez, STLMLC STLMLC [id number] Common 11:57:01 Diana 73487 [facility] 2021-09-16 Outpatient Jimenez, STLMLC STLMLC [id number] Common 11:32:27 Diana 23352 [facility] 2021-09-16 Outpatient Jimenez, STLMLC STLMLC [id number] Common 11:18:43 Diana 07650 [facility] 2021-09-16 Outpatient Jimenez, STLMLC STLMLC [id number] Common 11:17:53 Diana 70610 [facility] 2021-09-16 Outpatient Jimenez, STLMLC STLMLC [id number] Common 11:02:12 Diana 29235 [facility] 2022-10-27 2022-10-27 (TEL) STLMLC STLMLC [id number] Co mmon 00:00:00 00:00:00 [facility] 2022-10-26 2022-10-26 (TEL) STLMLC STLMLC [id number] Co mmon 00:00:00 00:00:00 [facility] 2022-10-25 2022-10-25 OFFICE STLMLC STLMLC [id number] Co mmon 00:00:00 00:00:00 [facility] ESTAB PT - CHI LEVEL 4 [facility] 2022-09-13 2022-09-13 (TEL) STLMLC STLMLC [id number] Co mmon 00:00:00 00:00:00 [facility] 2022-08-24 2022-08-24 Office Rocio Adriano [facility] [id number] Univers 15:00:00 15:15:00 Visit HEALTH [id number] [id number] [id number] [address] OFFICE BUILDING 2022-08-24 2022-08-24 Outpatient R ADRIANO [facility]ER [facility] [id number] Univers 15:00:00 15:00:00 cooper [facility] 2022-08-03 2022-08-03 [facility] [id number] Univers 14:30:00 14:46:13 FILOMENA gamboa [facility] 2022-08-03 2022-08-03 [facility] [id number] Univers 14:30:00 14:46:13 Visit Filomena DERRICK [id number] i ty [id number] [id number] [place] [address] Branch BUILDING 2022-07-29 2022-07-29 Outpatient Thiago DARBY [facility] [id number] Univers 14:30:00 14:30:00 FILOMENA gamboa [facility] 2022-07-29 2022-07-29 OFFICE STLC STLMLC [id number] Co mmon 00:00:00 00:00:00 [facility] ESTAB PT - CHI LEVEL 4 [facility] 2022-07-27 2022-07-27 [facility]patient [facility] [id number] Univers 15:00:00 15:00:00 FILOMENA gamboa [facility] 2022-07-06 2022-07-06 Orders Doctor AMADOU [id number] Univers 00:00:00 00:00:00 Only Unassigned, AYSHA 350.1.13.10 ity of [place] [facility] [id number] Rigoberto as [id number] [place] [address] Branch 2022-07-05 2022-07-05 (TEL) STLMLC STLMLC [id number] Co mmon 00:00:00 00:00:00 [facility] 2022-05-04 2022-05-04 OL DIG E/M STLMLC STLMLC [id number] Common 00:00:00 00:00:00 [facility] 11-20 Spir it MIN [facility] 2022-05-04 2022-05-04 (TEL) STLMLC STLMLC [id number] Co mmon 00:00:00 00:00:00 [facility] 2022-05-03 2022-05-03 (TEL) STLMLC STLMLC [id number] Co mmon 00:00:00 00:00:00 [facility] 2022-04-05 2022-04-05 (TEL) STLMLC STLMLC [id number] Co mmon 00:00:00 00:00:00 [facility] 2022-03-30 2022-03-30 (TEL) STLMLC STLMLC [id number] Co mmon 00:00:00 00:00:00 [facility] 2022-03-24 2022-03-24 (WELLNESS) STLMLC STLMLC [id number] Common 00:00:00 00:00:00 [facility] Visit [facility] 2022-03-01 2022-03-01 (TEL) STLMLC STLMLC [id number] Co mmon 00:00:00 00:00:00 [facility] 2022-02-18 2022-02-18 (TEL) STLMLC STLMLC [id number] Co mmon 00:00:00 00:00:00 [facility] 2022-01-20 2022-01-20 Telephone SARA KruegerMB [id number] Univers 00:00:00 00:00:00 Harinder RODRIGEZ 350.1.13.10 it y of [place] 4.2.7.2.686 Rigoberto as YOBANY?BLEA [id number] Tn carol [address] OFFICE [facility] 2022-01-15 2022-01-15 Office Pati [facility] [id number] Univers 11:00:00 11:32:20 Visit Harinder RODRIGEZ 350.1.13.10 it y of [place] [id number] Rigoberto as YOBANY?BLEA [id number] Tn carol [address] OFFICE [facility] 2022-01-15 2022-01-15 [facility] [id number] Univers 11:00:00 [facility]:32:20 [facility] 2022-01-15 2022-01-15 [facility] [id number] Univers 11:00:00 11:32:20 [facility] 2022-01-15 2022-01-15 [facility] [id number] Univers 11:00:00 11:00:00 [facility] 2022-01-07 2022-01-07 Orders Doctor AMADOU [id number] Univers 00:00:00 00:00:00 Only Unassigned, AYSHA 350.1.13.10 ity of [place] [facility] 4.2.7.2.686 Rigoberto as [id number] [address] 2021-12-28 2021-12-28 Outpatient R PATI [facility] [id number] Univers 14:30:00 14:30:00 [facility] 2021-12-28 2021-12-28 Outpatient Thiago KRUEGER [facility] [id number] Univers 14:30:00 14:30:00 [facility] 2021-12-28 2021-12-28 Outpatient [facility] [id number] Univers 14:30:00 14:30:00 [facility] 2021-12-28 2021-12-28 Orders Doctor AMADOU [id number] Univers 00:00:00 00:00:00 Only Unassigned, AYSHA 350.1.13.10 [facility] 4.2.7.2.686 Rigoberto as [id number] [address] 2021-12-23 2021-12-23 OFFICE STLC STLMLC [id number] Co mmon 00:00:00 00:00:00 VISIT Nishant ESTAB PT - CHI LEVEL 4 [facility] 2021-12-21 2021-12-21 [facility] [id number] Univers 15:43:28 23:59:00 [facility] 2021-12-21 2021-12-21 Outpatient Th[facility] [id number] Univers 15:43:28 23:59:00 [facility] 2021-12-21 2021-12-21 [facility] [id number] Univers 15:30:00 16:07:00 [facility] 2021-12-21 2021-12-21 [facility] [id number] Univers 15:30:00 16:07:00 Visit [facility] 350.1.13.10 it y of [place] 4.2.7.2.686 Rigoberto as YOBANY?BLEA [id number] Tn [address] MEDICAL OFFICE BUILDING 2021-11-11 2021-11-11 (TEL) STLC STLMLC [id number] Co mmon 00:00:00 00:00:00 [facility] 2021-11-02 2021-11-02 (TEL) STLMLC STLMLC [id number] Co mmon 00:00:00 00:00:00 [facility] 2021-07-02 2021-07-02 OFFICE STLMLC STLMLC [id number] Co mmon 00:00:00 00:00:00 VISIT Nishant ESTAB PT - CHI LEVEL 4 [facility] 2021-03-30 2021-03-30 Outpatient STLMLC STLMLC [id number] Common 00:00:00 00:00:00 [facility] 2020-12-25 2020-12-25 Outpatient STLMLC STLMLC [id number] Common 00:00:00 00:00:00 [facility] 2020-09-18 2020-09-18 Outpatient STLMLC STLMLC [id number] Common 00:00:00 00:00:00 [facility] 2020-09-15 2020-09-15 Outpatient STLMLC STLMLC [id number] Common 00:00:00 00:00:00 [facility] 2020-06-12 2020-06-12 Outpatient STLMLC STLMLC [id number] Common 00:00:00 00:00:00 [facility] 2020-06-02 2020-06-02 Outpatient STLMLC STLMLC [id number] Common 00:00:00 00:00:00 [facility] 2020-03-25 2020-03-25 [id number] Common 15:00:00 15:00:[address] [facility] 2020-03-18 2020-03-18 Outpatient [facility] [id number] Common 16:51:00 16:51:[address] [facility] 2020-02-05 2020-02-05 Outpatient [facility] [id number] Common 16:26:00 16:26:[address] [facility] 2019-12-11 2019-12-11 Outpatient [facility] [id number] Common 13:15:00 13:15:[address] [facility] 2019-10-16 2019-10-16 Outpatient [facility] [id number] Common 08:56:00 08:56:[address] [facility] 2019-10-12 2019-10-12 Outpatient [facility] [id number] Common 09:41:00 09:41:[address] [facility] 2019-09-26 2019-09-26 Outpatient Mahamed Irbyt [id number] Common 09:14:00 09:14:[address] [facility] 2019-09-11 2019-09-11 Outpatient Mahamed Irbyt [id number] Common 16:41:00 16:41:[address] [facility] 2019-09-11 2019-09-11 Outpatient Mahamed Irbyt [id number] Common 14:45:00 14:45:[address] [facility] Results Test Description Test Time Test Comments Results Result Comments Source CBC W/AUTO DIFF 2023-01-24 00:00:00 Test Item Value Reference Range Interpretation Comme nts NUCLEATED RBCS (test code 0.0 /100 WBC'S See_Comment [Automated message] The = 96052-9) system which ge nerated this result transmit dixie reference range: 0.0 /100 WBC'S. The reference range was not used to interpret th is result as normal/abnormal . ABSOLUTE EOSINOPHILS (test 0.14 K/UL See_Comment [Automated message] The code = 59719-5) system which generated this result transmit dixie reference range: 0.00-0.5 0 K/UL. The reference range was not used to interpret th is result as normal/abnormal . ABSOLUTE LYMPHOCYTES (test 2.05 K/UL See_Comment [Automated message] The code = 31141-4) system which generated this result transmit dixie reference range: 1.00-4.0 0 K/UL. The reference range was not used to interpret th is result as normal/abnormal . ABSOLUTE MONOCYTES (test 0.71 K/UL See_Comment [A utomated message] The code = 50211-9) system which generated this result transmit dixie reference range: 0.20-1.0 0 K/UL. The reference range was not used to interpret th is result as normal/abnormal . ABSOLUTE NEUTROPHILS (test 4.30 K/UL See_Comment [Automated message] The code = 63320-0) system which generated this result transmit dixie reference range: 1.50-7.5 0 K/UL. The reference range was not used to interpret th is result as normal/abnormal . BASOPHILS (test code = 0.7 % 53757-6) EOSINOPHILS (test code = 1.9 % 76392-6) HEMATOCRIT (test code = 44.7 % See_Comment [Au tomated message] The 83635-4) system which ge nerated this result transmit dixie reference range: 40.0-51. 0 %. The reference range was not used to interpret th is result as normal/abnormal . HEMOGLOBIN (test code = 15.2 G/DL See_Comment [Au tomated message] The 8-7) system which Showpad nerated this result transmit dixie reference range: 13.5-17. 0 G/DL. The reference range was not used to interpret th is result as normal/abnormal . LYMPHOCYTES (test code = 28.2 % 91622-9) MCH (test code = 46447-8) 30.2 PG See_Comment [ Automated message] The system which Showpad nerated this result transmit diixe reference range: 25.0-33. 0 PG. The reference range was not used to interpret th is result as normal/abnormal . MCHC (test code = 15080-2) 34.0 G/DL See_Comment [Automated message] The system which Showpad nerated this result transmit dixie reference range: 31.0-36. 0 G/DL. The reference range was not used to interpret th is result as normal/abnormal . MCV (test code = 93938-1) 88.7 fL See_Comment [ Automated message] The system which Showpad nerated this result transmit dixie reference range: 80.0-99. 0 fL. The reference range was not used to interpret th is result as normal/abnormal . MONOCYTES (test code = 9.8 % 21239-1) NEUTROPHILS (test code = 59.0 % 75796-1) PLATELET COUNT (test code 288 K/UL See_Comment [ Automated message] The = 66009-3) system which Showpad nerated this result transmit dixie reference range: 130-400 K/UL. The reference range was not used to interpret th is result as normal/abnormal . RBC (test code = 40951-5) 5.04 M/UL See_Comment [ Automated message] The system which ge nerated this result transmit dixie reference range: 4.50-6.1 0 M/UL. The reference range was not used to interpret th is result as normal/abnormal . RDW (test code = 42612-3) 13.0 % See_Comment [ Automated message] The system which ge nerated this result transmit dixie reference range: 11.5-15. 0 %. The reference range was not used to interpret th is result as normal/abnormal . WBC (test code = 14442-3) 7.3 K/UL See_Comment [ Automated message] The system which Showpad nerated this result transmit dixie reference range: 3.5-11.0 K/UL. The reference range was not used to interpret th is result as normal/abnormal . HEMOGLOBIN [id number] 00:00:00 Test Item Value Reference Range Interpretation Comments HEMOGLOBIN A1c (test 6.6 % See_Comment H [Autom ated message] The code = 4548-4) system which generated this result tra nsmitted reference range : 4.2-5.6 %. The referenc e range was not used to interpret this result as normal/abnormal . LIPID PANEL WITH REFLEX DIRECT [id number] 00:00:00 Test Item Value Reference Range Interpretation Comments CALC LDL CHOL (test 88 MG/DL See_Comment [Automa dixie message] code = 39087-8) The system [facility] generated this result transmit dixie reference range : <100 MG/DL. The reference range was not used to interpret this result as normal/abnormal . CHOLESTEROL (test code 169 MG/DL See_Comment [Aut omated message] = 2093-3) The system [facility] generated this result transmit dixie reference range : <200 MG/DL. The reference range was not used to interpret this result as normal/abnormal . HDL CHOLESTEROL (test 65 MG/DL See_Comment [Auto mated message] code = 2085-9) The system [facility] generated this result transmit dixie reference range : >39 MG/DL. The refe rence range was not u sed to interpret th is result as normal/abnormal . RISK RATIO LDL/HDL 1.35 RATIO See_Comment [Automat ed message] (test code = 92873-1) The sy stem which generated this result transmit dixie reference range : <3.55 RATIO. Th e reference range was not used to interpret this result as normal/abnormal . TRIGLYCERIDES (test 74 MG/DL See_Comment [Automa dixie message] code = 2571-8) The system [employer] [facility] generated this result transmit dixie reference range : <150 MG/DL. The reference range was not used to interpret this result as normal/abnormal . ALBUMIN/CREATININE RATIO, RANDOM [id number] 00:00:00 Test Item Value Reference Range Interpretation Comments ALBUMIN, URINE, 0.4 MG/DL NOT ESTAB MG/DL RANDOM (test code = 32604-7) CALC ALBUMIN/CREAT, 3 MG/G See_Comment [Automa dixie message] RND (test code = The system which 90266-6) generated this result transmitted ref erence range: <30 MG/G . The reference range was not used to interpr et this result as normal/abnormal . CREATININE, URINE, 118.4 MG/DL NOT ESTAB MG/DL CONC. (test code = 2161-8) COMPREHENSIVE METABOLIC [id number] 00:00:00 Test Item Value Reference Range Interpretation Comments ALBUMIN (test code = 4.2 G/DL See_Comment [Autom ated message] 1751-7) The system [employer] generated this result transmit dixie reference range : 3.5-5.2 G/DL. T he reference range was not used to interpret this result as normal/abnormal . ALKALINE PHOSPHATASE 138 U/L See_Comment H [Autom ated message] (test code = 6768-6) The sys tem which generated this result transmit dixie reference range : 40-121 U/L. The reference range was not used to interpret this result as normal/abnormal . BILIRUBIN, TOTAL 0.8 MG/DL See_Comment [Automated message] (test code = 1975-2) The sys tem which generated this result transmit dixie reference range : <=1.2 MG/DL. Th e reference range was not used to interpret this result as normal/abnormal . BUN (test code = 15 MG/DL See_Comment [Automated message] 3094-0) The system [employer] generated this result transmit dixie reference range : 6-20 MG/DL. The reference range was not used to interpret this result as normal/abnormal . CALCIUM (test code = 9.2 MG/DL See_Comment [Autom ated message] 19956-6) The system [employer] generated this result transmit dixie reference range : 8.5-10.5 MG/DL. The reference range was not used to interpret this result as normal/abnormal . CALC A/G RATIO (test 1.3 RATIO See_Comment [Autom ated message] code = 1759-0) The system [facility] generated this result transmit dixie reference range : 1.0-2.6 RATIO. The reference range was not used to interpret this result as normal/abnormal . CALC BUN/CREAT (test 16 RATIO See_Comment [Autom ated message] code = 3097-3) The system [facility] generated this result transmit dixie reference range : 6-28 RATIO. The reference range was not used to interpret this result as normal/abnormal . CALC GLOBULIN (test 3.3 G/DL See_Comment [Automa dixie message] code = 54475-2) The system [facility] generated this result transmit dixie reference range : 1.9-3.7 G/DL. T he reference range was not used to interpret this result as normal/abnormal . CARBON DIOXIDE (test 20 MEQ/L See_Comment [Autom ated message] code = 1963-8) The system [facility] generated this result transmit dixie reference range : 19-31 MEQ/L. Th e reference range was not used to interpret this result as normal/abnormal . CHLORIDE (test code 106 MEQ/L See_Comment [Automa dixie message] = 2074-0) The system [facility] generated this result transmit dixie reference range : 95-107 MEQ/L. T he reference range was not used to interpret this result as normal/abnormal . CREATININE (test 0.91 MG/DL See_Comment [Automated message] code = 2160-0) The system [facility] generated this result transmit dixie reference range : 0.80-1.40 MG/DL . The reference range was not used to interpret this result as normal/abnormal . eGFR (2020 CKD-EPI) 100 See_Comment [Automa dixie message] (test code = ML/MIN/1.73 The system [facility] 03971-1) generated this result transmit dixie reference range : >60 ML/MIN/1.73. Th e reference range was not used to interpret this result as normal/abnormal . GLUCOSE (test code = 112 MG/DL See_Comment H [Autom ated message] 1558-6) The system [facility] generated this result transmit dixie reference range : 70-99 MG/DL. Th e reference range was not used to interpret this result as normal/abnormal . POTASSIUM (test code 5.3 MEQ/L See_Comment [Autom ated message] = 6743-3) The system [employer] generated this result transmit dixie reference range : 3.5-5.4 MEQ/L. The reference range was not used to interpret this result as normal/abnormal . PROTEIN, TOTAL (test 7.5 G/DL See_Comment [Autom ated message] code = 2885-2) The system [facility] generated this result transmit dixie reference range : 6.1-8.3 G/DL. T he reference range was not used to interpret this result as normal/abnormal . AST (test code = 99 U/L See_Comment H [Automated message] 6720-8) The system [employer] generated this result transmit dixie reference range : 9-50 U/L. The reference range was not used to interpret this result as normal/abnormal . ALT (test code = 100 U/L See_Comment H [Automated message] 3022-6) The system [employer] generated this result transmit dixie reference range : 5-50 U/L. The reference range was not used to interpret this result as normal/abnormal . SODIUM (test code = 142 MEQ/L See_Comment [Automa dixie message] 1186-2) The system [employer] generated this result transmit dixie reference range : 133-146 MEQ/L. The reference range was not used to interpret this result as normal/abnormal .
[2023-07-07 08:23] LABS: Absolute Lymphocytes (CBC) 3.2 K/uL (0.7-4.9); Hematocrit 47.7 % (39.6-49.0); Lymphocytes % 33.9 % (15.3-44.8); MCV 92.7 fL (80-100); MPV 6.9 fL (7.6-11.3); Platelets 230 thou/uL (152-406); RBC Red Blood Cell Count 5.14 M/uL (4.33-5.43)
[2023-07-07 08:38] LABS: Protime INR 1.11
[2023-07-07 08:39] LABS: SARS-CoV-2 Antigen Rapid Res Negative (Negative)
[2023-07-07] MEDS ORDERED: IPRATROPIUM BROM 0.5MG/2.5ML ONE (08:41)
[2023-07-07] MEDS ORDERED: ALBUTEROL 2.5 MG/3 ML NEB SOL ONE (08:41)
--- NOTE | 2023-07-07 08:41 | RAD REPORT ---
EXAM DESCRIPTION: RAD - Chest Single View - 07/07/2023 8:26 am CLINICAL HISTORY: DYSPNEA COMPARISON: Chest Single View dated 12/22/2022; Chest Single View dated 04/13/2022; Chest Pa And Lat (2 Views) dated 04/05/2022; Abdomen 1 View (KUB) dated 01/29/2022 FINDINGS: Lines: None. Lungs: No evidence of edema or pneumonia. Pleural: No significant pleural effusions or pneumothorax. Cardiac: The heart size is within normal limits. Mediastinum: Within normal limits. Bones: No acute fractures. Other: None IMPRESSION: No acute cardiopulmonary disease.
[2023-07-07 08:42] LABS: Magnesium 2.1 mg/dL (1.6-2.4); Potassium 3.5 mEq/L (3.5-5.1); Troponin High Sensitivity 9.5 pg/mL (<58.9)
[2023-07-07] MEDS ORDERED: HYDRALAZINE HCL 20 MG/ML VIAL ONE (09:16)
--- NOTE | 2023-07-07 09:26 | RAD REPORT ---
EXAM DESCRIPTION: CT - Chest For Pe Angio - 07/07/2023 9:15 am CLINICAL HISTORY: DYSPNEA COMPARISON: Chest For Pe Angio dated 12/22/2022; Chest For Pe Angio dated 02/26/2019; Chest For Pe Angio dated 05/14/2018; Chest For Pe Angio dated 02/16/2018 TECHNIQUE: Dynamically enhanced axial 3 mm thick images of the chest were obtained during administra tion of <100> mL Isovue 370 IV contrast. Coronal and oblique reconstruction images were generated and reviewed. Exam utilizes a protocol for optimal evaluation of pulmonary arterial tree. Maximum intensity projections 3D imaging was utilized All CT scans are performed using dose optimization technique as appropriate and may include automated exposure control or mA/KV adjustment according to patient size. FINDINGS: Chest Wall: No suspicious thyroid nodules or pathologic lymphadenopathy. Lungs: Wedge-shaped consolidation in the anterior segment of the right lower lobe. There is some wedg e-shaped ground-glass opacities in the superior segment of the right lower lobe. Pleura: No significant effusions or pneumothorax. Mediastinum/julianna: No pathologic lymphadenopathy. Pulmonary arteries/Aorta: Positive for pulmonary embolism with overall moderate to large clot burden including a nearly occlusive large thrombus in the right pulmonary artery extending into the right up per and right lower lobar and segmental branches. Smaller segmental size pulmonary emboli present in the left lung. No aortic aneurysm. Heart: No significant pericardial effusion. Normal heart size. Upper abdomen: No acute abnormality.Question cirrhotic liver morphology but only partially imaged. Bones: No acute abnormality. Bridging osteophytes in the spine. IMPRESSION: Positive for pulmonary embolism with moderate to large clot burden. New small peripheral opacities in the right lower lobe could reflect small pulmonary infarcts. Conveyed to Haritha Parham in the ED by Dr. Weaver at 0920 on 07/07/23.
--- NOTE | 2023-07-07 09:47 | EDPHYS ---
Physician Documentation [facility] Name: Dwayne Walker Jr Age: 53 yrs Sex: Male : 1970 Arrival Date: 07/07/2023 Time: 07:47 Bed 8 Private MD: ED Physician Tank Boswell HPI: 07/07 07:55 This 53 yrs old Male presents to ER via EMS with complaints of Breathing jh7 Difficulty. 07:55 The patient has shortness of breath at rest. Onset: The symptoms/episode began/occurred jh7 2 week(s) ago. Duration: The symptoms are continuous, and are steadily getting worse. The patient's shortness of breath is aggravated by coughing, exertion, talking. Associated signs and symptoms: Pertinent positives: non-productive cough, Pertinent negatives: fever. hx of HTN. EMS stated that the patient was in respiratory distress upon arrival with an o2 sat of 92%. Pt improved with o2.. Historical: - Allergies: 11:35 No Known Allergies; nj1 - PMHx: 07:57 Borderline Diabetes; Hypertension; HEP C; DVT; Pulmonary Embolism; Umbilical hernia; db - PSHx: 07:57 hernia; Leg surgery; db - Immunization history:: Client reports receiving the 2nd dose of the Covid vaccine. - Social history:: Smoking status: Reported history of juuling and/or vaping. ROS: 07:55 Constitutional: Negative for fever, chills, and weight loss, Eyes: Negative for injury, jh7 pain, redness, and discharge, ENT: Negative for injury, pain, and discharge, Neck: Negative for injury, pain, and swelling, Cardiovascular: Negative for chest pain, palpitations, and edema, Abdomen/GI: Negative for abdominal pain, nausea, vomiting, diarrhea, and constipation, Back: Negative for injury and pain, MS/Extremity: Negative for injury and deformity, Skin: Negative for injury, rash, and discoloration, Neuro: Negative for headache, weakness, numbness, tingling, and seizure, 07:55 Respiratory: Positive for cough, orthopnea, shortness of breath, 07:55 All other systems are negative, Exam: 07:55 Head/Face: Normocephalic, atraumatic. Eyes: Pupils equal round and reactive to light, jh7 extra-ocular motions intact. Lids and lashes normal. Conjunctiva and sclera are non-icteric and not injected. Cornea within normal limits. Periorbital areas with no swelling, redness, or edema. ENT: Nares patent. No nasal discharge, no septal abnormalities noted. Oropharynx with no redness, swelling, or masses, exudates, or evidence of obstruction, uvula midline. Mucous membranes moist. Neck: Trachea midline, no thyromegaly or masses palpated, and no cervical lymphadenopathy. Supple, full range of motion without nuchal rigidity, or vertebral point tenderness. No Meningismus. Cardiovascular: Regular rate and rhythm with a normal S1 and S2. No gallops, murmurs, or rubs. Normal PMI, no JVD. No pulse deficits. Abdomen/GI: Soft, non-tender, with normal bowel sounds. No distension or tympany. No guarding or rebound. No evidence of tenderness throughout. Back: No spinal tenderness. No costovertebral tenderness. Full range of motion. Skin: Warm, dry with normal turgor. Normal color with no rashes, no lesions, and no evidence of cellulitis. MS/ Extremity: Pulses equal, no cyanosis. Neurovascular intact. Full, normal range of motion. Neuro: Awake and alert, GCS 15, oriented to person, place, time, and situation. Motor strength 5/5 in all extremities. Sensory grossly intact. Normal gait. 07:55 Constitutional: The patient appears alert, awake, in obvious distress, mildly distressed, 07:55 Respiratory: mild respiratory distress is noted, Respirations: labored breathing, that is mild, persistent cough, Breath sounds: decreased breath sounds, that are moderate, are scattered, Vital Signs: 07:46 BP 169 / 99; Pulse 109; Resp 28; Temp 97.8; Pulse Ox 93% on R/A; Weight 99.79 kg; db Height 5 ft. 7 in. ; 08:40 BP 157 / 114; Pulse 103; Resp 22; Pulse Ox 99% on 10 lpm Nebulizer Mask; ph 08:52 BP 152 / 96; ph 09:27 BP 145 / 92; Pulse 94; Resp 18; Pulse Ox 93% on R/A; ph 09:57 BP 146 / 106; Pulse 95; Resp 22; Pulse Ox 96% on 2 lpm NC; ph 11:25 BP 154 / 100; Pulse 85; Resp 20; Pulse Ox 95% on 2 lpm NC; ph 07:46 Body Mass Index 34.46 (99.79 kg, 170.18 cm) db MDM: 08:02 Patient medically screened. [facility] 09:42 Differential diagnosis: Bronchitis CHF exacerbation, Chronic Obstructive Pulmonary jh7 Disease Myocardial Infarction pneumonia, Pneumothorax pulmonary edema, Pulmonary Embolism. Data interpreted: Pulse oximetry: on 3L(s) per nasal canula, is 94 %. Interpretation: normal. The patient's pulmonary embolism risk score was calculated as follows: suspected deep vein thrombosis (3 Pts) alternative diagnosis is less likely (3 Pts) the patient has a history of a previous deep vein thrombosis or pulmonary embolism (1.5 Pts) Total Score: greater than 6 points. This patient was found to be at low risk for a pulmonary embolism by using the Well's assessment criteria. Data reviewed: vital signs, nurses notes, lab test result(s), EKG, radiologic studies, CT scan, plain films. Consideration of Admission/Observation Patient was admitted/placed on observation. Management of patient was discussed with the following: Hospitalist: Dr. Begum. Supervisor [employer]: Dr. Morales, pulmonology. Pulmonology advise Lovenox 1 mg/kg twice daily.. I considered the following discharge prescriptions or medication management in the emergency department Medications were administered in the Emergency Department. See MAR. Independent interpretation of the following test(s) in the Emergency Department EKG: See my EKG interpretation above. Discussion of test interpretation with radiology: I had a discussion with radiology regarding a test interpretation. Radiology called to confirm diagnosis of pulmonary embolism seen on CTA.. Care significantly affected by the following chronic conditions: Hypertension. Counseling: I had a detailed discussion with the patient and/or guardian regarding the historical points, exam findings, and any diagnostic results supporting the discharge/admit diagnosis, the need for further work-up and treatment in the hospital. Response to treatment: the patient's symptoms have mildly improved after treatment. Special discussion: Patient reported that he had a PE 4 to 5 years ago and was put on Eliquis. He reports that his dose was lowered 2 years ago and that 1 year ago he had a colonoscopy. He stated that he never got back on his Eliquis after the colonoscopy.. 07/07 08:02 Order name: Basic Metabolic Panel; Complete Time: 08:46 [facility] 07/07 08:02 Order name: CBC with Diff; Complete Time: 08:46 [facility] 07/07 08:02 Order name: D-Dimer; Complete Time: 08:46 [facility] 07/07 08:02 Order name: Magnesium; Complete Time: 08:46 [facility] 07/07 08:02 Order name: NT PRO-BNP; Complete Time: 08:46 [facility] 07/07 08:02 Order name: PT-INR; Complete Time: 08:46 [facility] 07/07 08:02 Order name: Troponin HS; Complete Time: 08:46 [facility] 07/07 08:02 Order name: SARS RAPID; Complete Time: 08:46 [facility] 07/07 09:45 Order name: ABG; Complete Time: 13:33 [facility] 07/07 10:37 Order name: Basic Metabolic Panel EDMS 07/07 10:37 Order name: Basic Metabolic Panel EDMS 07/07 10:37 Order name: Basic Metabolic Panel EDMS 07/07 10:37 Order name: Basic Metabolic Panel EDMS 07/07 10:37 Order name: Basic Metabolic Panel EDMS 07/07 10:37 Order name: Basic Metabolic Panel EDMS 07/07 10:37 Order name: CBC with Automated Diff EDMS 07/07 10:37 Order name: CBC with Automated Diff EDMS 07/07 10:37 Order name: CBC with Automated Diff EDMS 07/07 10:37 Order name: CBC with Automated Diff EDMS 07/07 10:37 Order name: CBC with Automated Diff EDMS 07/07 10:37 Order name: CBC with Automated Diff EDMS 07/07 10:37 Order name: Magnesium EDMS 07/07 10:37 Order name: Magnesium EDMS 07/07 10:37 Order name: Magnesium EDMS 07/07 10:37 Order name: Magnesium EDMS 07/07 10:37 Order name: Magnesium EDMS 07/07 10:37 Order name: Magnesium EDMS 07/07 10:37 Order name: Phosphorus EDMS 07/07 10:37 Order name: Phosphorus EDMS 07/07 10:37 Order name: Phosphorus EDMS 07/07 10:37 Order name: Phosphorus EDMS 07/07 10:37 Order name: Phosphorus EDMS 07/07 10:37 Order name: Phosphorus EDMS 07/07 08:02 Order name: XRAY Chest (1 view); Complete Time: 08:46 [facility] 07/07 08:47 Order name: CT Chest For PE Angio; Complete Time: 09:28 [facility] 07/07 10:55 Order name: Echo with Doppler [facility] 07/07 08:02 Order name: EKG; Complete Time: 08:03 [facility] 07/07 10:37 Order name: CONS Physician Consult [facility] 07/07 08:02 Order name: Cardiac monitoring; Complete Time: 08:14 [facility] 07/07 08:02 Order name: EKG - Nurse/Tech; Complete Time: 08:14 [facility] 07/07 08:02 Order name: IV Saline Lock; Complete Time: 08:14 [facility] 07/07 08:02 Order name: Labs collected and sent; Complete Time: 08:14 [facility] 07/07 08:02 Order name: O2 Per Protocol; Complete Time: 08:14 [facility] 07/07 08:02 Order name: O2 Sat Monitoring; Complete Time: 08:14 [facility] EC:57 Rate is 109 beats/min. Rhythm is regular. QRS [place] is Normal. MT interval is normal at [facility] 152 msec. QRS interval is normal at 84 msec. QT interval is normal at 358 msec. No Q waves. T waves are Normal. Clinical impression: Sinus tachycardia. Administered Medications: 08:36 Drug: DuoNeb Nebulize (2.5 mg - 0.5 mg) 3 ml Nebulizer once Route: Nebulizer; ph 10:56 Follow up: Response: No adverse reaction ph 08:36 Drug: Ketorolac IVP 30 mg IVP once Route: IVP; Site: right antecubital; ph 10:56 Follow up: Response: No adverse reaction ph 09:56 Not Given (Other Intervention Used): morphineor iv 4 mg IVP once over 4 mins ph 09:56 Drug: Enoxaparin Sub-Q 100 mg Sub-Q once Route: Sub-Q; Site: right lower abdomen; ph 10:56 Follow up: Response: No adverse reaction ph 09:57 Drug: [place] PO 10 mg-325 mg 1 tabs PO once Route: PO; ph 10:56 Follow up: Response: No adverse reaction ph 11:55 Drug: hydrALAZINE IVP 10 mg IVP once Route: IVP; Site: right antecubital; ph 12:50 Drug: Ativan IVP 1 mg IVP once Route: IVP; Site: right forearm; db Disposition: 13:21 Co-signature as Attending Physician, Tank Boswell MD I agree with the assessment and kdr plan of care. Disposition Summary: 07/07/23 09:47 Hospitalization Ordered Notes: Hospitalization Status: Inpatient Admission [facility] Provider: Dionicio Begum [facility] Location: Telemetry/MedSurg (Inpatient) [facility] Condition: Fair [facility] Problem: new [facility] Symptoms: have worsened [facility] Bed/Room Type: Standard [facility] Room Assignment: 202(07/07/23 11:08) em1 Diagnosis - Pulmonary embolism without acute cor pulmonale [facility] Forms: - Medication Reconciliation Form [facility] - SBAR form [facility] - Leadership Thank You Letter [facility] Signatures: Dispatcher [employer] EDMS Tank Boswell MD MD [facility] Cullen Doty em1 Roula Navarro, RN RN Gema Parham, DIP DYER DIP DYER [facility] Gail Tejeda RN RN db Marsha Bennett RN RN nj1 Corrections: (The following items were deleted from the chart) 11:08 09:47 [facility] em1
--- NOTE | 2023-07-07 09:47 | ER ---
Nurse's Notes [facility] Name: Dwayne Walker Jr Age: 53 yrs Sex: Male : 1970 Arrival Date: 07/07/2023 Time: 07:47 Bed 8 Private MD: Diagnosis: Pulmonary embolism without acute cor pulmonale Presentation: 07/07 07:46 Chief complaint: EMS states: PATIENT FROM HOME WITH DIFFICULTY BREATHING X 2 WEEKS. db COUGH AND CONGESTION. EMS PLACED PT ON NC 3L. BGL 84. Coronavirus screen: Vaccine status: Patient reports receiving the 2nd dose of the covid vaccine. Client denies travel out of the [place] in the last 14 days. At this time, the client does not indicate any symptoms associated with coronavirus-19. Ebola Screen: Patient negative for fever greater than or equal to 101.5 degrees Fahrenheit, and additional compatible Ebola Virus Disease symptoms Patient denies exposure to infectious person. Patient denies travel to an Ebola-affected area in the 21 days before illness onset. No symptoms or risks identified at this time. Initial Sepsis Screen: Does the patient meet any 2 criteria? HR > 90 bpm. No. Patient's initial sepsis screen is negative. Does the patient have a suspected source of infection? No. Patient's initial sepsis screen is negative. Risk Assessment: Do you want to hurt yourself or someone else? Patient reports no desire to harm self or others. Onset of symptoms was July 07, 2023. Care prior to arrival: Glucose check: 84. 07:46 Method Of Arrival: EMS: [facility] db 07:46 Acuity: FÉLIX 2 db Triage Assessment: 07:57 General: Appears in no apparent distress. uncomfortable, Behavior is anxious. Pain: db Complains of pain in chest. Neuro: Level of Consciousness is awake, alert, obeys commands, Oriented to person, place, time, situation. Respiratory: Reports shortness of breath at rest on exertion labored breathing Onset: The symptoms/episode began/occurred suddenly, the patient has moderate shortness of breath. Historical: - Allergies: 11:35 No Known Allergies; nj1 - PMHx: 07:57 Borderline Diabetes; Hypertension; HEP C; DVT; Pulmonary Embolism; Umbilical hernia; db - PSHx: 07:57 hernia; Leg surgery; db - Immunization history:: Client reports receiving the 2nd dose of the Covid vaccine. - Social history:: Smoking status: Reported history of juuling and/or vaping. Screenin:00 [facility] ED Fall Risk Assessment (Adult) History of falling in the last 3 months, ph including since admission No falls in past 3 months (0 pts) Confusion or Disorientation No (0 pts) Intoxicated or Sedated No (0 pts) Impaired Gait No (0 pts) Mobility Assist Device Used No (0 pt) Altered Elimination No (0 pt) Score/Fall Risk Level 0 - 2 = Low Risk Oriented to surroundings, Maintained a safe environment, Hourly rounding (assess needs \\T\\ fall precautionary measures) done. Abuse screen: Denies threats or abuse. Denies injuries from another. Nutritional screening: No deficits noted. Tuberculosis screening: No symptoms or risk factors identified. Assessment: 08:08 Reassessment: Patient appears in no apparent distress at this time. Patient and/or db family updated on plan of care and expected duration. Pain level reassessed. General: Appears distressed, uncomfortable, Behavior is cooperative, anxious. Neuro: Level of Consciousness is awake, alert, obeys commands, Oriented to person, place, time, situation. Cardiovascular: Reports chest pain, shortness of breath, Capillary refill < 3 seconds Rhythm is sinus tachycardia. Respiratory: Airway is patent Respiratory effort is even, labored, Respiratory pattern is regular, symmetrical. 09:57 Reassessment: Patient appears in no apparent distress at this time. Patient and/or ph family updated on plan of care and expected duration. Pain level reassessed. Patient is alert, oriented x 3, equal unlabored respirations, skin warm/dry/pink. Pt requesting PO meds for pain control, ERP notified, verbal order received for Spring 10 see OCT. 11:35 Reassessment: Patient appears in no apparent distress at this time. Patient and/or ph family updated on plan of care and expected duration. Pain level reassessed. Patient is alert, oriented x 3, equal unlabored respirations, skin warm/dry/pink. 11:35 Pain: Complains of pain in back and chest Pain currently is 7 out of 10 on a pain scale.ph 11:41 Reassessment: Unsuccessful attempt to call report at this time "Room is being cleaned". ph Vital Signs: 07:46 BP 169 / 99; Pulse 109; Resp 28; Temp 97.8; Pulse Ox 93% on R/A; Weight 99.79 kg; db Height 5 ft. 7 in. ; 08:40 BP 157 / 114; Pulse 103; Resp 22; Pulse Ox 99% on 10 lpm Nebulizer Mask; ph 08:52 BP 152 / 96; ph 09:27 BP 145 / 92; Pulse 94; Resp 18; Pulse Ox 93% on R/A; ph 09:57 BP 146 / 106; Pulse 95; Resp 22; Pulse Ox 96% on 2 lpm NC; ph 11:25 BP 154 / 100; Pulse 85; Resp 20; Pulse Ox 95% on 2 lpm NC; ph 07:46 Body Mass Index 34.46 (99.79 kg, 170.18 cm) db ED Course: 07:53 Patient arrived in ED. db 07:57 Triage completed. db 07:57 Patient placed in an exam room. db 08:00 Inserted saline lock: 20 gauge in right antecubital area, using aseptic technique. ph Blood collected. 08:00 Patient has correct armband on for positive identification. Bed in low position. Call ph light in reach. Side rails up X2. Pulse ox on. NIBP on. 08:02 Gema Parham FNP [facility]. jh7 08:02 Tank Boswell MD is Attending Physician. jh7 08:18 Gail Tejeda, ACRLO is Primary Nurse. db 08:28 XRAY Chest (1 view) In Process Unspecified. EDMS 09:16 CT Chest For PE Angio In Process Unspecified. EDMS 09:46 Dionicio Begum is Hospitalizing Provider. jh7 10:56 No provider procedures requiring assistance completed. Patient admitted, IV remains in ph place. 11:35 Provided Education on: call light, fall precautions.. nj1 Administered Medications: 08:36 Drug: DuoNeb Nebulize (2.5 mg - 0.5 mg) 3 ml Nebulizer once Route: Nebulizer; ph 10:56 Follow up: Response: No adverse reaction ph 08:36 Drug: Ketorolac IVP 30 mg IVP once Route: IVP; Site: right antecubital; ph 10:56 Follow up: Response: No adverse reaction ph 09:56 Not Given (Other Intervention Used): morphineor iv 4 mg IVP once over 4 mins ph 09:56 Drug: Enoxaparin Sub-Q 100 mg Sub-Q once Route: Sub-Q; Site: right lower abdomen; ph 10:56 Follow up: Response: No adverse reaction ph 09:57 Drug: Spring PO 10 mg-325 mg 1 tabs PO once Route: PO; ph 10:56 Follow up: Response: No adverse reaction ph 11:55 Drug: hydrALAZINE IVP 10 mg IVP once Route: IVP; Site: right antecubital; ph 12:50 Drug: Ativan IVP 1 mg IVP once Route: IVP; Site: right forearm; db Medication: 08:00 VIS not applicable for this client. ph Outcome: 09:47 Decision to Hospitalize by Provider. jatin 12:44 Admitted to Med/surg accompanied by tech, room 202, Report called to Nurse Ava nj1 12:44 Condition: stable 12:44 Instructed on the need for admit, 13:13 Patient left the ED. nj1 Signatures: Dispatcher [employer] EDRoula Garrido, RN RN Gema Parham, TECHNICAL TRANSLATOR TECHNICAL TRANSLATOR [facility] Gail Tejeda, RN RN Marsha Bennett, RN RN nj1
[2023-07-07] MEDS ORDERED: MORPHINE 4 MG/ML SYR ONE (10:00)
[2023-07-07] MEDS ORDERED: ENOXAPARIN 100 MG/ML SYR SQ ONE (10:00)
[2023-07-07] MEDS: ENOXAPARIN 100 MG/ML SYR SQ SCH ×2 (10:00→20:21)
[2023-07-07] MEDS ORDERED: HYDROCODONE/APAP 10/325 TAB ONE (10:07)
[2023-07-07] MEDS ORDERED: MORPHINE 2 MG/ML SYR IV PRN (10:38)
--- NOTE | 2023-07-07 10:50 | P.HP ---
Certification for Inpatient Patient admitted to: Observation With expected LOS: >2 Midnights Patient will require the following post-hospital care: None Practitioner: I am a practitioner with admitting privileges, knowledge of patient current condition, hospital course, and medical plan of care. Services: Services provided to patient in accordance with Admission requirements found in Title 42 Section 412.3 of the Code of Federal Regulations Patient History Date of Service: 07/07/23 Reason for admission: PE History of Present Illness: Dwayne Hassan is a 53-year-old male with past medical history DVT/PE, chronic pain with scoliosis, borderline Diabetes, Hypertension HEP C, Umbilical hernia who presented to the ED with shortness of breath at rest onset 3 weeks. Dwayne reports having a history of DVTs to his left leg and PE. He states falling 25 feet several years ago requiring multiple surgeries to his back and left leg which resulted in blood clots. He was chronically on Eliquis of which was stopped recently. He also reports being recently vaccinated and assumed his cough and shortness of breath was from a side effect. Initial vitals BP 169 / 99; Pulse 109; Resp 28; Temp 97.8; Pulse Ox 93% on R/A. Significant labs BNP 75, troponin 9.5, D-dimer 5536, platelets 230. CT chest read states "Positive for pulmonary embolism with moderate to large clot burden. New small peripheral opacities in the right lower lobe could reflect small pulmonary infarcts" Dwayne be admitted to hospitalist service for further evaluation and treatment of pulmonary embolis. Allergies No Known Drug Allergies Allergy (Verified 02/02/23 08:15) Unknown Home Medications: Apixaban [Eliquis] 5 mg PO DAILY 01/25/22 Atorvastatin Calcium 20 mg PO DAILY 01/25/22 Hydrocodone Bit/Acetaminophen [Weir 7.5-325 Tablet] 1 tab PO BID 01/25/22 Lisinopril [Zestril] 1 tab PO DAILY 01/25/22 Omeprazole [Prilosec] 40 mg PO DAILY 01/25/22 Gabapentin 800 mg PO TID 02/02/23 Glecaprevir/Pibrentasvir [Mavyret 100-40 mg Tablet] 1 each PO DAILY 02/02/23 hydrOXYzine HCL [Atarax] 25 mg PO DAILY 02/02/23 - Past Medical/Surgical History Diabetic: No -: Hypertension -: GERD -: Chronic pain secondary to fall injury -: Scoliosis -: Pulmonary embolism/DVT, January 2018 -: Alcohol abuse -: Tobacco abuse -: fell through roof, multiple fractures -: bilateral hip repair -: bilateral leg feet fracture repairs -: lower spine fractures 13 areas Psychosocial/ Personal History: Patient is single. 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 - Family History Mother -: Hypertension Father -: Heart disease - Social History Alcohol use: Yes CD- Drugs: Yes Caffeine use: Yes Review of Systems General: Unremarkable Eyes: Unremarkable Respiratory: Cough, Shortness of Breath (at rest), SOB with Excertion Cardiovascular: Orthopnea Gastrointestinal: Vomiting (when coughing ) Musculoskeletal: Back Pain (chronic, scoliosis), Leg Pain (chronic) Integumentary: Unremarkable Neurological: Unremarkable Physical Examination - Physical Exam General: Alert, In no apparent distress, Oriented x3 HEENT: Atraumatic, Normocephalic, PERRLA Neck: Supple, 2+ carotid pulse no bruit, JVD not distended Respiratory: Normal air movement, Expiratory wheezes Cardiovascular: No edema, Irregular heart rate/rhythm (tachycardic) Capillary refill: <2 Seconds Gastrointestinal: Normal bowel sounds, No tenderness, Distended (obese) Musculoskeletal: No clubbing, No swelling, No contractures Integumentary: No rashes, No breakdown, No significant lesion Neurological: Normal speech, Normal strength at 5/5 x4 extr, Normal tone - Studies Laboratory Data (last 24 hrs) 07/07/23 07/07/23 07/07/23 08:00 08:00 08:00 WBC 9.60 Hgb 16.5 Hct 47.7 Plt Count 230 PT 12.2 INR 1.11 Sodium 140 Potassium 3.5 BUN 3 L Creatinine 0.81 Glucose 97 Magnesium 2.1 Assessment and Plan - Plan Assessment and Plan Acute Hypoxic respiratory failure 2/2 pulmonary embolism Pulmonary embolism in patient with history of DVT/PE Cough on 2 LNC sating 96% D dimer 5536 Troponin 9[address] chest "Positive for pulmonary embolism with moderate to large clot burden. New small peripheral opacities in the right lower lobe could reflect small pulmonary infarcts" Haseeb Lovenox Q12H telemetry ECHO Essential Hypertension restart home medications Chronic pain History of Trauma fall (back and leg surgeries) Scoliosis Pain control encourgae ambulation DVT ppx: lovenox scheduled Full Code LOS 2 days Discharge Plan: Home Plan to discharge in: 48 Hours - Advance Directives Does patient have a Living Will: No Does patient have a Durable POA for Healthcare: No Time Spent Managing Pts Care (In Minutes): 55
[2023-07-07 11:05] LABS: Arterial Blood Carboxyhemoglob 0.9 % (0-1.5); Blood O2 Saturation 94.3 % (92-98.5)
[2023-07-07] MEDS ORDERED: LORazepam 2 MG/ML VIAL ONE (13:05)
[2023-07-07] MEDS: ALBUTEROL 2.5 MG/3 ML NEB SOL NEB SCH ×2 (15:21→21:00)
[2023-07-07] MEDS: HYDROCODONE/APAP 10/325 TAB PO PRN ×2 (16:41→21:51)
[2023-07-07] MEDS ORDERED: hydrOXYzine HCL 25 MG TAB PO ONE (21:58)
[2023-07-07] MEDS: GABAPENTIN 400 MG CAP PO SCH (23:04)
[2023-07-07] MEDS: FAMOTIDINE 20 MG TAB PO SCH (23:04)
[2023-07-08] MEDS: ALBUTEROL 2.5 MG/3 ML NEB SOL NEB SCH ×4 (02:50→21:57)
[2023-07-08 03:08] LABS: Absolute Lymphocytes (CBC) 2.1 K/uL (0.7-4.9); Hematocrit 40.9 % (39.6-49.0); Lymphocytes % 27.7 % (15.3-44.8); MCV 93.9 fL (80-100); MPV 7.2 fL (7.6-11.3); Platelets 207 thou/uL (152-406); RBC Red Blood Cell Count 4.36 M/uL (4.33-5.43)
[2023-07-08 03:47] LABS: Potassium 4.2 mEq/L (3.5-5.1)
[2023-07-08 03:48] LABS: Magnesium 2.4; Phosphorus 2.9 mg/dL (2.5-4.9)
[2023-07-08] MEDS: ENOXAPARIN 100 MG/ML SYR SQ SCH ×2 (08:36→20:45)
[2023-07-08] MEDS: GABAPENTIN 400 MG CAP PO SCH ×3 (08:37→20:46)
[2023-07-08] MEDS: FAMOTIDINE 20 MG TAB PO SCH (08:37)
[2023-07-08] MEDS: HYDROCODONE/APAP 10/325 TAB PO PRN (08:37)
--- NOTE | 2023-07-08 09:03 | ECHO ---
HEIGHT: 5 ft 7 in WEIGHT: 220 lb 0 oz DATE OF STUDY: 07/07/[address]: Kiara Alford NP 2-DIMENSIONAL: YES M.MODE: YES DOPPLER: YES COLOR FLOW: YES TDS: NO PORTABLE: YES DEFINITY: NO BUBBLE STUDY: NO DIAGNOSIS: PULMONARY EMBOLISM CARDIAC HISTORY: CATHERIZATION: NO SURGERY: NO PROSTHETIC VALVE: NO PACEMAKER: NO MEASUREMENTS (cm) DIASTOLIC (NORMALS) SYSTOLIC (NORMALS) IVSd 1.4 (0.6-1.2) LA Diam 3.2 (1.9-4.0) LVEF >60% LVIDd 4.6 (3.5-5.7) LVIDs 3.4 (2.0-3.5) %FS 25% LVPWd 1.4 (0.6-1.2) Ao Diam 2.7 (2.0-3.7) 2 DIMENSIONAL ASSESSMENT: RIGHT ATRIUM: NORMAL LEFT ATRIUM: NORMAL RIGHT VENTRICLE: MILDLY DILATED LEFT VENTRICLE: LEFT VENTRICULAR HYPERTROPHY TRICUSPID VALVE: MILD TRICUSPID REGURGITATION MITRAL VALVE: NORMAL PULMONIC VALVE: NORMAL AORTIC VALVE: NORMAL PERICARDIAL EFFUSION: NONE AORTIC ROOT: NORMAL LEFT VENTRICULAR WALL MOTION: NORMAL. DOPPLER/COLOR FLOW: SEE BELOW. COMMENTS: 1. NORMAL LEFT VENTRICULAR EJECTION FRACTION GREATER THAN 60% WITH NORMAL WALL MOTION. 2. MILDY DILATED RIGHT VENTRICLE WITH NORMAL FUNCTION. 3. SEVERE PULMONARY HYPERTENSION WITH RIGHT VENTRICULAR SYSTOLIC PRESSURE GREATER THAN 60mmHg. 4. MILD TRICUSPID REGURGITATION. 5. MODERATE CONCENTRIC LEFT VENTRICULAR HYPERTROPHY. TECHNOLOGIST: JIAN MEYER
[2023-07-08] MEDS: ARFORMOTEROL TARTRATE 15 MCG/2 ML VIAL.NEB NEB SCH ×2 (10:03→21:57)
--- NOTE | 2023-07-08 10:03 | P.CNS ---
Date of Consult: 07/08/23 Reason for Consult: Pulmonary embolism Chief Complaint: PE History of Present Illness: Patient is 53 years of age and admitted with acute pulmonary embolism he has been short of breath for the past 2-1/2 weeks has become progressively worse in addition to his severe coughing spells he had a history of DVT and pulmonary embolism before still short of breath some nasal congestion Allergies No Known Drug Allergies Allergy (Verified 02/02/23 08:15) Unknown Home Medications: Apixaban [Eliquis] 5 mg PO DAILY 01/25/22 Atorvastatin Calcium 20 mg PO DAILY 01/25/22 Hydrocodone Bit/Acetaminophen [Fertile 7.5-325 Tablet] 1 tab PO BID 01/25/22 Lisinopril [Zestril] 1 tab PO DAILY 01/25/22 Omeprazole [Prilosec] 40 mg PO DAILY 01/25/22 Gabapentin 800 mg PO TID 02/02/23 Glecaprevir/Pibrentasvir [Mavyret 100-40 mg Tablet] 1 each PO DAILY 02/02/23 hydrOXYzine HCL [Atarax] 25 mg PO DAILY 02/02/23 - Past Medical/Surgical History Diabetic: No -: Hypertension -: GERD -: Chronic pain secondary to fall injury -: Scoliosis -: Pulmonary embolism/DVT, January 2018 -: Alcohol abuse -: Tobacco abuse -: fell through roof, multiple fractures -: bilateral hip repair -: bilateral leg feet fracture repairs -: lower spine fractures 13 areas Psychosocial/ Personal History: Patient is single. 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 - Family History Mother Medical History: Hypertension Father Medical History: Heart disease - Social History Smoking Status: Unknown if ever smoked Alcohol use: Yes CD- Drugs: Yes Caffeine use: Yes Place of Residence: Home Review of Systems 10-point ROS is otherwise unremarkable Respiratory: Shortness of Breath Physical Examination Temp Pulse Resp BP Pulse Ox 97.0 F 66 18 141/78 H 99 07/08/23 04:00 07/08/23 04:00 07/08/23 08:37 07/08/23 04:00 07/08/23 08:37 General: Alert, Moderate distress Neck: Supple Respiratory: Clear to auscultation bilaterally Cardiovascular: No edema, Regular rate/rhythm, Normal S1 S2 Gastrointestinal: Normal bowel sounds, Soft and benign - Problems (1) Pulmonary embolism Current Visit: Yes Status: Acute Plan: Patient is 53 years of age admitted with acute pulmonary embolism this is recurrent continue with Lovenox he will need lifelong anticoagulation we will order an echocardiogram complains of some nasal congestion have added Flonase patient is not taking any anticoagulants at home his hepatitis C viral titers are very low now Labs chemistries reviewed room air pulse ox is slightly over 90% he is hemodynamically stable continue with present therapy if he worsens will consider thrombolytic Qualifiers: Acute cor pulmonale presence: unspecified
[2023-07-08] MEDS: FLUTICASONE 50MCG NASAL SPRAY NAS SCH ×2 (12:06→21:00)
[2023-07-08] MEDS ORDERED: HOME MED 1 EA UNK (Gabapentin [Gabapentin] 800 MG Tablet) PO SCH (14:00)
--- NOTE | 2023-07-08 14:12 | P.PN ---
Subjective Date of Service: 07/08/23 Chief Complaint: PE Patient is complaining of shortness of breath and was requesting for oxygen last night that his oxygen saturation has been stable on room air. He denies any chest pain. Physical Examination - Vital Signs Temperature: 97.2 F Blood Pressure: 147/93 Pulse: 81 Respirations: 18 Pulse Ox (%): 99 Assessment And Plan - Plan Physical Exam General: Alert, In no apparent distress, Oriented x3 Neck: Supple, JVD not distended Respiratory: Normal air movement, Expiratory wheezes. No crackles. Cardiovascular: No edema, regular rhythm. Gastrointestinal: Normal bowel sounds, No tenderness, obese. Musculoskeletal: No clubbing, No swelling. Integumentary: No rashes, No breakdown, No significant lesion Neurological: Normal speech, Normal strength at 5/5 x4 extr, Normal tone Diagnosis Pulmonary embolism History of DVT/PE Patient is tolerating room air. Moderate to large clot burden according to CTA thorax Pulmonary input appreciated. Continue full dose Lovenox. Duonebs ECHO shows mildly dilated right ventricle and severe pulmonary hypertension. Monitor blood pressure. Essential Hypertension Continue home medications. Chronic pain History of Trauma fall (back and leg surgeries) Scoliosis Analgesics as needed Activity as tolerated.
[2023-07-08] MEDS: ATORVASTATIN 20 MG TAB PO SCH (20:48)
[2023-07-08] MEDS ORDERED: HYDROCODONE/APAP 7.5/325 MG TAB PO SCH (21:00)
[2023-07-08] MEDS ORDERED: FAMOTIDINE 20 MG TAB PO SCH (22:00)
[2023-07-08] MEDS ORDERED: GABAPENTIN 400 MG CAP PO SCH (22:01)
[2023-07-09] MEDS: ALBUTEROL 2.5 MG/3 ML NEB SOL NEB SCH ×4 (01:40→21:10)
[2023-07-09] MEDS: ARFORMOTEROL TARTRATE 15 MCG/2 ML VIAL.NEB NEB SCH ×2 (07:36→21:10)
[2023-07-09 08:00] LABS: Absolute Lymphocytes (CBC) 2.2 K/uL (0.7-4.9); Hematocrit 42.6 % (39.6-49.0); Lymphocytes % 33.2 % (15.3-44.8); MPV 6.7 fL (7.6-11.3); Platelets 214 thou/uL (152-406); RBC Red Blood Cell Count 4.53 M/uL (4.33-5.43)
[2023-07-09 08:19] LABS: Magnesium 2.1 mg/dL (1.6-2.4); Phosphorus 2.5 mg/dL (2.5-4.9); Potassium 4.1 mEq/L (3.5-5.1)
[2023-07-09] MEDS: PIBRENTASVIR PO SCH (09:00)
[2023-07-09] MEDS ORDERED: lisinopriL 20 MG TAB PO SCH (09:00)
[2023-07-09] MEDS: GLECAPREVIR PO SCH (09:00)
[2023-07-09] MEDS: BENZONATATE 100 MG CAP PO PRN ×2 (09:01→17:35)
[2023-07-09] MEDS: GABAPENTIN 400 MG CAP PO SCH ×3 (09:01→19:56)
[2023-07-09] MEDS: hydrOXYzine HCL 25 MG TAB PO SCH (09:03)
[2023-07-09] MEDS: ENOXAPARIN 100 MG/ML SYR SQ SCH ×2 (09:04→19:54)
[2023-07-09] MEDS: FAMOTIDINE 20 MG TAB PO SCH (09:09)
[2023-07-09] MEDS: FLUTICASONE 50MCG NASAL SPRAY NAS SCH ×2 (09:09→19:53)
[2023-07-09] MEDS: HYDROCODONE/APAP 10/325 TAB PO PRN ×4 (09:38→21:56)
--- NOTE | 2023-07-09 09:48 | P.PN ---
Subjective Date of Service: 07/09/23 Chief Complaint: Shortness of breath Patient complaining of severe coughing spells shortness of breath on minimal exertion has to use bedside urinal very anxious afraid Review of Systems Respiratory: Cough, Shortness of Breath Physical Examination - Vital Signs Temperature: 97.6 F Blood Pressure: 155/92 Pulse: 92 Respirations: 18 Pulse Ox (%): 98 - Physical Exam General: Alert, Oriented x3, Moderate distress Respiratory: Clear to auscultation bilaterally, Diminished Cardiovascular: No edema, Regular rate/rhythm, Normal S1 S2 Assessment And Plan - Current Problems (Diagnosis) (1) Pulmonary embolism Current Visit: Yes Status: Acute Plan: Patient is 53 years of age admitted with massive pulmonary embolism short of breath on minimal exertion unable to even walk to the bathroom very apprehensive complaining of coughing spells he also has some cor pulmonale enlargement of the right ventricle discussed with the patient he will benefit from thrombolytic therapy low risk no obvious contraindication patient wants to think about it we will probably transfer him to the ICU and given some alteplase 10 mg IV bolus Qualifiers: Acute cor pulmonale presence: unspecified (2) Cough Current Visit: Yes Status: Acute Plan: Patient complaining of severe coughing spells be related to JEANNINE inhibitor we will hold changed to amlodipine and Maxide schedule promethazine with codeine also add a PPI for the possibility of reflux Qualifiers: Cough type: acute Qualified Code(s): R05.1 - Acute cough
[2023-07-09] MEDS ORDERED: MAXZIDE (HCTZ 25/TRIAMTERENE 37.5MG) TAB PO SCH (10:18)
[2023-07-09] MEDS ORDERED: AMLODIPINE 5 MG TAB PO SCH (10:18)
[2023-07-09] MEDS: PANTOPRAZOLE 40MG TABLET PO SCH ×2 (11:04→17:34)
[2023-07-09] MEDS: PROMETHAZINE-DM 5 ML OSYR PO SCH ×3 (11:06→22:00)
--- NOTE | 2023-07-09 14:24 | P.PN ---
Subjective Date of Service: 07/09/23 Chief Complaint: Shortness of breath Patient is complaining of shortness of breath and currently on high flow oxygen. He reports significant short of breath with exertion. He denies any chest pain. Physical Examination - Vital Signs Temperature: 97.4 F Blood Pressure: 150/96 Pulse: 94 Respirations: 18 Pulse Ox (%): 92 - Studies Laboratory Data (last 24 hrs) 07/09/23 07/09/23 07:43 07:43 WBC 6.70 Hgb 14.4 Hct 42.6 Plt Count 214 Sodium 138 Potassium 4.1 BUN 6 L Creatinine 0.73 Glucose 104 Phosphorus 2.5 Magnesium 2.1 Assessment And Plan - Plan Physical Exam General: Alert, mild respiratory distress, oriented x3 Neck: Supple, JVD not distended Respiratory: Normal air movement, Expiratory wheezes. No crackles. Cardiovascular: No edema, regular rhythm. Gastrointestinal: Normal bowel sounds, No tenderness, obese. Musculoskeletal: No clubbing, No swelling. Integumentary: No rashes, No breakdown, No significant lesion Neurological: Normal speech, Normal strength at 5/5 x4 extr, Normal tone Diagnosis Pulmonary embolism History of DVT/PE Patient is tolerating room air. Moderate to large clot burden according to CTA thorax Pulmonary Dr. Thorpe is following and considering tPA. Continue full dose Lovenox for now. Duonebs ECHO shows mildly dilated right ventricle and severe pulmonary hypertension. Monitor blood pressure. Titrate oxygen. Essential Hypertension Continue home medications. Chronic pain History of Trauma fall (back and leg surgeries) Scoliosis Analgesics as needed Activity as tolerated.
[2023-07-09] MEDS: ATORVASTATIN 20 MG TAB PO SCH (19:56)
[2023-07-10] MEDS: ALBUTEROL 2.5 MG/3 ML NEB SOL NEB SCH ×4 (01:45→20:50)
[2023-07-10] MEDS: PROMETHAZINE-DM 5 ML OSYR PO SCH ×3 (05:00→16:06)
[2023-07-10] MEDS: HYDROCODONE/APAP 10/325 TAB PO PRN ×3 (06:24→16:05)
[2023-07-10] MEDS: ARFORMOTEROL TARTRATE 15 MCG/2 ML VIAL.NEB NEB SCH ×2 (07:15→20:55)
[2023-07-10] MEDS ORDERED: ALTEPLASE 1 MG/ML *Bolus for stroke orders only IV ONE (08:17)
[2023-07-10] MEDS ORDERED: TENECTEPLASE 50 MG/10 ML VIAL IV STA (08:25)
[2023-07-10 08:53] LABS: Absolute Lymphocytes (CBC) 2.6 K/uL (0.7-4.9); Hematocrit 45.6 % (39.6-49.0); Lymphocytes % 29.7 % (15.3-44.8); MCV 94.7 fL (80-100); MPV 7.2 fL (7.6-11.3); Platelets 215 thou/uL (152-406); RBC Red Blood Cell Count 4.81 M/uL (4.33-5.43)
[2023-07-10 08:57] LABS: Protime INR 1.04
[2023-07-10] MEDS: GLECAPREVIR PO SCH (09:00)
[2023-07-10] MEDS: hydrOXYzine HCL 25 MG TAB PO SCH ×2 (09:00→09:54)
[2023-07-10] MEDS: PIBRENTASVIR PO SCH (09:00)
[2023-07-10 09:08] LABS: Magnesium 2.1 mg/dL (1.6-2.4); Phosphorus 2.4 mg/dL (2.5-4.9); Potassium 4.2 mEq/L (3.5-5.1)
[2023-07-10] MEDS: GABAPENTIN 400 MG CAP PO SCH ×3 (09:45→20:15)
[2023-07-10] MEDS: PANTOPRAZOLE 40MG TABLET PO SCH ×2 (09:45→16:06)
--- NOTE | 2023-07-10 09:47 | P.PN ---
Subjective Date of Service: 07/10/23 Chief Complaint: Pulmonary embolism shortness of breath Patient is not doing well he still complaining of shortness of breath chest tightness dyspneic even and moving around his bed patient transferred to the ICU Review of Systems General: Weakness Respiratory: Cough, Shortness of Breath Physical Examination - Vital Signs Temperature: 97.2 F Blood Pressure: 138/73 Pulse: 84 Respirations: 18 Pulse Ox (%): 97 - Physical Exam General: Alert, Oriented x3 Neck: Supple Respiratory: Clear to auscultation bilaterally Cardiovascular: No edema, Regular rate/rhythm Assessment And Plan - Current Problems (Diagnosis) (1) Pulmonary embolism Current Visit: Yes Status: Acute Plan: Patient is 53 years of age admitted with massive pulmonary embolism he is hemodynamically stable. He patient is hypoxic requiring high flow oxygen he is still tachypneic with the slightest movement makes him very short of breath because of complaining of coughing spells cussed with the patient we will plan to proceed with TNK 50 mg dose IV cussed with the patient risk and benefit including possibility of a stroke and bleeding and he agrees to having TNK we will start Lovenox once his PTT is around 70 Qualifiers: Acute cor pulmonale presence: unspecified (2) Cough Current Visit: Yes Status: Acute Plan: Patient complaining of severe coughing spells be related to JEANNINE inhibitor we will hold changed to amlodipine and Maxide schedule promethazine with codeine also add a PPI for the possibility of reflux Qualifiers: Cough type: acute Qualified Code(s): R05.1 - Acute cough
[2023-07-10] MEDS: FAMOTIDINE 20 MG TAB PO SCH (09:54)
[2023-07-10] MEDS: BENZONATATE 100 MG CAP PO PRN (09:54)
[2023-07-10] MEDS: FLUTICASONE 50MCG NASAL SPRAY NAS SCH ×2 (09:55→20:17)
[2023-07-10] MEDS ORDERED: FAMOTIDINE 20 MG TAB ONE (10:07)
[2023-07-10] MEDS ORDERED: BENZONATATE 100 MG CAP PO ONE (10:07)
[2023-07-10] MEDS: POTASS/SODIUM PHOSPHATE 1 PKT POWD.PACK PO SCH ×3 (10:35→11:58)
[2023-07-10] MEDS ORDERED: HYDROCODONE/APAP 10/325 TAB ONE ×2 (10:47→16:18)
[2023-07-10] MEDS ORDERED: PROMETHAZINE-DM 5 ML OSYR ONE ×2 (10:48→16:18)
[2023-07-10] MEDS: ONDANSETRON 4 MG/2 ML VIAL IV PRN (13:01)
--- NOTE | 2023-07-10 13:31 | P.PN ---
Subjective Date of Service: 07/10/23 Chief Complaint: Pulmonary embolism shortness of breath No major changes from yesterday. Patient maintained on high flow, 5 L/min. Status post tPA today. He denies any chest pain. Physical Examination - Vital Signs Temperature: 98.1 F Blood Pressure: 109/69 Pulse: 92 Respirations: 18 Pulse Ox (%): 95 Assessment And Plan - Plan Physical Exam General: Alert, mild respiratory distress, oriented x3 Neck: Supple, JVD not distended Respiratory: Normal air movement, Expiratory wheezes. No crackles. Cardiovascular: No edema, regular rhythm. Gastrointestinal: Normal bowel sounds, No tenderness, obese. Musculoskeletal: No clubbing, No swelling. Integumentary: No rashes, No breakdown, No significant lesion Neurological: Normal speech, Normal strength at 5/5 x4 extr, Normal tone Diagnosis Pulmonary embolism History of DVT/PE Patient is tolerating room air. Moderate to large clot burden according to CTA thorax Pulmonary Dr. Thorpe is following. Status post TNKase today. Monitor for the next 24 hours in ICU. Resume anticoagulation after 24 hours. Duonebs, arformoterol ECHO shows mildly dilated right ventricle and severe pulmonary hypertension. Monitor blood pressure. Wean oxygen. Essential Hypertension Continue home medications. Chronic pain History of Trauma fall (back and leg surgeries) Scoliosis Analgesics as needed Activity as tolerated.
[2023-07-10 15:30] VITALS: BMI 35.0
[2023-07-10] MEDS ORDERED: ENOXAPARIN 100 MG/ML SYR SQ SCH (16:12)
[2023-07-10] MEDS ORDERED: PANTOPRAZOLE 40MG TABLET PO ONE (16:18)
[2023-07-10] MEDS ORDERED: ENOXAPARIN 100 MG/ML SYR SQ ONE (16:57)
[2023-07-10] MEDS ORDERED: PROMETHAZINE 25 MG TABLET PO PRN (19:55)
[2023-07-10] MEDS: ATORVASTATIN 20 MG TAB PO SCH (20:15)
[2023-07-10] MEDS ORDERED: ALBUTEROL 2.5 MG/3 ML NEB SOL ONE (20:16)
[2023-07-10] MEDS ORDERED: ARFORMOTEROL TARTRATE 15 MCG/2 ML VIAL.NEB ONE (20:17)
[2023-07-10] MEDS ORDERED: ATORVASTATIN 20 MG TAB ONE (20:26)
[2023-07-11] MEDS: ALBUTEROL 2.5 MG/3 ML NEB SOL NEB SCH ×2 (02:00→07:25)
[2023-07-11] MEDS ORDERED: ALBUTEROL 2.5 MG/3 ML NEB SOL ONE (02:01)
[2023-07-11] MEDS ORDERED: ENOXAPARIN 100 MG/ML SYR SQ SCH (05:00)
[2023-07-11 05:30] LABS: Absolute Lymphocytes (CBC) 1.8 K/uL (0.7-4.9); Hematocrit 43.6 % (39.6-49.0); MCV 94.2 fL (80-100); MPV 7.3 fL (7.6-11.3); Platelets 182 thou/uL (152-406); RBC Red Blood Cell Count 4.62 M/uL (4.33-5.43)
[2023-07-11 06:05] LABS: Magnesium 2.2 mg/dL (1.6-2.4); Phosphorus 2.9 mg/dL (2.5-4.9); Potassium 4.7 mEq/L (3.5-5.1)
[2023-07-11] MEDS: PANTOPRAZOLE 40MG TABLET PO SCH ×2 (07:30→08:59)
[2023-07-11] MEDS: ARFORMOTEROL TARTRATE 15 MCG/2 ML VIAL.NEB NEB SCH ×3 (08:00→19:40)
[2023-07-11] MEDS ORDERED: OXYMETAZOLINE HCL 0.05% 15ML NAS PRN (08:06)
[2023-07-11] MEDS ORDERED: hydrOXYzine HCL 25 MG TAB ONE (08:52)
[2023-07-11] MEDS ORDERED: ATORVASTATIN 20 MG TAB ONE (08:53)
[2023-07-11] MEDS ORDERED: predniSONE 20 MG TAB ONE (08:53)
[2023-07-11] MEDS: RIVAROXABAN 15 MG TABLET PO SCH ×2 (08:58→21:42)
[2023-07-11] MEDS: FLUTICASONE 50MCG NASAL SPRAY NAS SCH ×2 (08:59→21:43)
[2023-07-11] MEDS: GABAPENTIN 400 MG CAP PO SCH ×3 (08:59→21:42)
[2023-07-11] MEDS: predniSONE 20 MG TAB PO SCH ×2 (08:59→21:42)
[2023-07-11] MEDS: HYDROCODONE/APAP 10/325 TAB PO PRN ×4 (09:00→21:42)
[2023-07-11] MEDS: PIBRENTASVIR PO SCH (09:00)
[2023-07-11] MEDS: GLECAPREVIR PO SCH (09:00)
[2023-07-11] MEDS ORDERED: RIVAROXABAN 15 MG TABLET PO SCH (09:00)
[2023-07-11] MEDS: hydrOXYzine HCL 25 MG TAB PO SCH (09:02)
[2023-07-11] MEDS ORDERED: HYDROCODONE/APAP 10/325 TAB ONE ×3 (09:08→18:02)
--- NOTE | 2023-07-11 12:54 | P.PN ---
Subjective Date of Service: 07/11/23 Chief Complaint: Pulmonary embolism shortness of breath Patient is doing better shortness of breath is improved still complaining of coughing spells and nasal congestion Review of Systems Respiratory: Cough, Shortness of Breath Physical Examination - Vital Signs Temperature: 97.6 F Blood Pressure: 148/98 Pulse: 108 Respirations: 20 Pulse Ox (%): 95 - Physical Exam General: Alert, In no apparent distress, Oriented x3 Respiratory: Clear to auscultation bilaterally Cardiovascular: No edema, Regular rate/rhythm, Normal S1 S2 Assessment And Plan - Current Problems (Diagnosis) (1) Pulmonary embolism Current Visit: Yes Status: Acute Plan: Patient is 53 years of age admitted with massive pulmonary embolism status post TNK he is doing much better shortness of breath is improved main problem seems to be coughing and nasal congestion Patient is on Protonix nasal sprays I will also added some prednisone ambulate plan for discharge he will need lifelong anticoagulation plan for discharge a.m. if able to ambulate Qualifiers: Acute cor pulmonale presence: with acute cor pulmonale (2) Cough Current Visit: Yes Status: Acute Plan: Complaining of persistent cough Qualifiers: Cough type: acute Qualified Code(s): R05.1 - Acute cough
[2023-07-11] MEDS: BENZONATATE 100 MG CAP PO PRN ×2 (14:14→21:42)
[2023-07-11] MEDS ORDERED: BENZONATATE 100 MG CAP PO ONE (14:26)
--- NOTE | 2023-07-11 14:49 | P.PN ---
Subjective Date of Service: 07/11/23 Chief Complaint: Pulmonary embolism shortness of breath Patient is currently tolerating 2 L oxygen by nasal cannula Status post tPA yesterday. He reports some improvement in his shortness of breath. He denies any chest pain. Physical Examination - Vital Signs Temperature: 97.6 F Blood Pressure: 145/87 Pulse: 98 Respirations: 20 Pulse Ox (%): 96 Assessment And Plan - Plan Physical Exam General: Alert, mild respiratory distress, oriented x3 Neck: Supple, JVD not distended Respiratory: Normal air movement, Expiratory wheezes. No crackles. Cardiovascular: No edema, regular rhythm. Gastrointestinal: Normal bowel sounds, No tenderness, obese. Musculoskeletal: No clubbing, No swelling. Integumentary: No rashes, No breakdown, No significant lesion Neurological: Normal speech, Normal strength at 5/5 x4 extr. Diagnosis Pulmonary embolism History of DVT/PE Patient is on 2 L oxygen by nasal cannula Moderate to large clot burden according to CTA thorax Pulmonary Dr. Thorpe is following. Status post TNKase yesterday and monitoring in ICU. Transferred to the medical floor Patient started on Xarelto anticoagulation Continue Duonebs, arformoterol ECHO shows mildly dilated right ventricle and severe pulmonary hypertension. Monitor blood pressure. Wean oxygen. Increase activity as tolerated. Essential Hypertension Continue home medications. Chronic pain History of Trauma fall (back and leg surgeries) Scoliosis Analgesics as needed Activity as tolerated. Disposition: Home in 1 to 2 days.
[2023-07-11] MEDS: ALBUTEROL 2.5 MG/3 ML NEB SOL NEB PRN (19:40)
[2023-07-11] MEDS: ATORVASTATIN 20 MG TAB PO SCH (21:42)
[2023-07-11] MEDS: ONDANSETRON 4 MG/2 ML VIAL IV PRN (23:56)
[2023-07-12] MEDS: ALBUTEROL 2.5 MG/3 ML NEB SOL NEB PRN (01:22)
[2023-07-12 03:24] LABS: Absolute Lymphocytes (CBC) 1.7 K/uL (0.7-4.9); Hematocrit 43.5 % (39.6-49.0); MCV 94.8 fL (80-100); MPV 7.6 fL (7.6-11.3); Platelets 217 thou/uL (152-406); RBC Red Blood Cell Count 4.59 M/uL (4.33-5.43)
[2023-07-12 03:41] LABS: Magnesium 2.4 mg/dL (1.6-2.4); Phosphorus 1.6 mg/dL (2.5-4.9); Potassium 5.1 mEq/L (3.5-5.1)
[2023-07-12] MEDS: ARFORMOTEROL TARTRATE 15 MCG/2 ML VIAL.NEB NEB SCH ×3 (07:49→19:05)
[2023-07-12] MEDS: GABAPENTIN 400 MG CAP PO SCH ×3 (08:55→20:45)
[2023-07-12] MEDS: RIVAROXABAN 15 MG TABLET PO SCH ×2 (08:55→20:45)
[2023-07-12] MEDS: hydrOXYzine HCL 25 MG TAB PO SCH (08:56)
[2023-07-12] MEDS: PANTOPRAZOLE 40MG TABLET PO SCH (08:56)
[2023-07-12] MEDS: FLUTICASONE 50MCG NASAL SPRAY NAS SCH ×2 (08:56→20:44)
[2023-07-12] MEDS: POTASS/SODIUM PHOSPHATE 1 PKT POWD.PACK PO SCH ×2 (08:56→10:26)
[2023-07-12] MEDS: PIBRENTASVIR PO SCH (08:57)
[2023-07-12] MEDS: GLECAPREVIR PO SCH (08:57)
[2023-07-12] MEDS: HYDROCODONE/APAP 10/325 TAB PO PRN ×4 (09:05→23:06)
[2023-07-12] MEDS: BENZONATATE 100 MG CAP PO PRN (09:05)
--- NOTE | 2023-07-12 09:35 | P.PN ---
Date of Service: 07/12/23 Subjective: Doing okay cough/wheezing continues, slowly improving Breathing a little more comfortably today on 2L NC; however, still needing to take breaks/deep breaths after briefly talking denies chest pain afebrile ROS: 10 point ROS as noted above, otherwise negative Physical Exam: GEN: Alert, oriented, NAD HEENT: Normal conjunctiva, sclera anicteric CV: Regular rate and rhythm, no edema Pulm: mild labored respirations on 2L NC at rest, diminished at bases b/l, +Expiratory wheezes, +cough ABD: Soft, nontender, nondistended Neuro: Normal speech, normal affect vitals reviewed Problem List: Pulmonary embolism History of DVT/PE Hypertension Chronic back/leg pain History of traumatic fall (s/p multiple back/leg surgeries) Scoliosis Pulmonary embolism History of DVT/PE CTA chest (07/07): +PE with mod-large clot burden. New peripheral opacities in right lower lobe Echo (07/07): >60% EF, mild dilated right ventricle, severe pulm hypertension, mild TR, moderate concentric left ventricular hypertrophy new compared to prior echo pulm consulted s/p TNKase (07/10) Continue Duonebs, arformoterol, prednisone PRN tessalon perles, Robitussin Continue Xarelto -will need to be lifelong Currently on 2L NC. Wean oxygen as tolerated Increase activity as tolerated. PT consulted 07/12 Hypertension Continue home medications as appropriate Chronic back/leg pain History of traumatic fall (s/p multiple back/leg surgeries) Scoliosis PRN pain medication Activity as tolerated. VTE: Xarelto Code: Full Dispo: Home ~1-2 days wean O2, ambulating
[2023-07-12] MEDS: GUAIFENESIN/CODEINE 5ML UCUP PO PRN (10:29)
--- NOTE | 2023-07-12 12:26 | P.PN ---
Subjective Date of Service: 07/12/23 Chief Complaint: Pulmonary embolism shortness of breath Patient is nervous anxious worried about going home complaining of severe coughing spells once pain medication is a pain management doctor takes narcotics twice a day once more clear coughing spells Review of Systems General: Weakness Respiratory: Cough, Shortness of Breath Physical Examination - Vital Signs Temperature: 97.6 F Blood Pressure: 127/77 Pulse: 88 Respirations: 18 Pulse Ox (%): 93 - Physical Exam General: Alert, Oriented x3 Respiratory: Clear to auscultation bilaterally Cardiovascular: No edema, Regular rate/rhythm, Normal S1 S2 Assessment And Plan - Current Problems (Diagnosis) (1) Pulmonary embolism Current Visit: Yes Status: Acute Plan: Patient is s/p thrombolytic therapy of pulmonary embolism shortness of breath has improved complains of severe chronic persistent coughing spells very apprehensive nervous room air pulse ox ambulate patient plan for discharge DC steroid lifelong treatment with anticoagulation Qualifiers: Acute cor pulmonale presence: with acute cor pulmonale (2) Cough Current Visit: Yes Status: Acute Plan: Complaining of severe persistent cough continue with nasal sprays antiacid therapy bronchodilators Qualifiers: Cough type: acute Qualified Code(s): R05.1 - Acute cough
[2023-07-12] MEDS: DOCUSATE NA 100 MG CAP PO SCH ×2 (13:51→20:45)
[2023-07-12] MEDS: ATORVASTATIN 20 MG TAB PO SCH (20:45)
[2023-07-13 03:04] LABS: Magnesium 2.1 mg/dL (1.6-2.4); Phosphorus 3.3 mg/dL (2.5-4.9); Potassium 4.6 mEq/L (3.5-5.1)
[2023-07-13] MEDS: ARFORMOTEROL TARTRATE 15 MCG/2 ML VIAL.NEB NEB SCH ×2 (07:35→19:13)
[2023-07-13] MEDS: GLECAPREVIR PO SCH (07:48)
[2023-07-13] MEDS: PIBRENTASVIR PO SCH (07:48)
[2023-07-13] MEDS: hydrOXYzine HCL 25 MG TAB PO SCH (07:52)
[2023-07-13] MEDS: RIVAROXABAN 15 MG TABLET PO SCH ×2 (07:52→20:57)
[2023-07-13] MEDS: PANTOPRAZOLE 40MG TABLET PO SCH (07:52)
[2023-07-13] MEDS: GABAPENTIN 400 MG CAP PO SCH ×3 (07:53→20:57)
[2023-07-13] MEDS: DOCUSATE NA 100 MG CAP PO SCH ×2 (07:53→20:58)
[2023-07-13] MEDS: HYDROCODONE/APAP 10/325 TAB PO PRN ×4 (07:53→20:57)
[2023-07-13] MEDS: FLUTICASONE 50MCG NASAL SPRAY NAS SCH ×2 (07:54→20:59)
[2023-07-13] MEDS: GUAIFENESIN/CODEINE 5ML UCUP PO PRN (08:00)
--- NOTE | 2023-07-13 08:50 | RAD REPORT ---
EXAM DESCRIPTION: RADChest Single View07/13/2023 5:12 am CLINICAL HISTORY: hypoxia, f/u opacity COMPARISON: Chest Single View dated 07/07/2023; Chest Single View dated 12/22/2022; Chest Single View dated 04/13/2022; Chest Pa And Lat (2 Views) dated 04/05/2022 TECHNIQUE: Portable AP view of the chest. FINDINGS: Patchy right basilar airspace opacification. Suspected small effusion. Decreased inspirato ry effort limits evaluation. No pneumothorax or left effusion. The cardiomediastinal contours are un remarkable. IMPRESSION: Patchy right basilar airspace opacity with suspected small effusion, findings may have w orsened since the prior CT. Underlying pneumonia should be considered.
--- NOTE | 2023-07-13 12:11 | P.PN ---
Subjective Date of Service: 07/13/23 Chief Complaint: Pulmonary embolism shortness of breath Patient still complaining of cough slightly better shortness of breath has improved he is very anxious nervous afraid to go home Review of Systems Respiratory: Cough, Shortness of Breath Physical Examination - Vital Signs Temperature: 97.7 F Blood Pressure: 120/73 Pulse: 80 Respirations: 16 Pulse Ox (%): 90 - Physical Exam General: Alert, Oriented x3 Respiratory: Clear to auscultation bilaterally Cardiovascular: No edema, Regular rate/rhythm Assessment And Plan - Current Problems (Diagnosis) (1) Pulmonary embolism Current Visit: Yes Status: Acute Plan: Patient is improving oxygenation has improved room air pulse ox is 94% inform the patient that about 80% of the clot proved within a month needs lifelong anticoagulation therapy whether his Eliquis or Xarelto Qualifiers: Acute cor pulmonale presence: with acute cor pulmonale (2) Cough Current Visit: Yes Status: Acute Plan: Complaining of a persistent cough add low-dose macrolide therapy for anti- inflammatory purposes Labs chemistries reviewed stable for discharge Qualifiers: Cough type: acute Qualified Code(s): R05.1 - Acute cough
[2023-07-13] MEDS: AMOX/K CLAV 875 MG TAB PO SCH ×2 (12:25→20:57)
[2023-07-13] MEDS: AZITHROMYCIN 250 MG TAB PO SCH (12:25)
--- NOTE | 2023-07-13 15:11 | P.PN ---
Date of Service: 07/13/23 Subjective: Doing okay cough/wheezing continues, slowly improving ambulated around unit yesterday, required frequent breaks to rest afebrile CXR with worsening opacities ROS: 10 point ROS as noted above, otherwise negative Physical Exam: GEN: Alert, oriented, NAD HEENT: Normal conjunctiva, sclera anicteric CV: Regular rate and rhythm, no edema Pulm: mild labored respirations on 2L NC at rest, diminished at bases b/l, +Expiratory wheezes, +cough ABD: Soft, nontender, nondistended Neuro: Normal speech, normal affect vitals reviewed Problem List: Acute hypoxemic respiratory failure secondary to acute pulmonary embolus with right heart strain History of DVT/PE Hypertension Chronic back/leg pain History of traumatic fall (s/p multiple back/leg surgeries) Scoliosis Acute hypoxemic respiratory failure secondary to acute pulmonary embolus with right heart strain History of DVT/PE CTA chest (07/07): +PE with mod-large clot burden. New peripheral opacities in right lower lobe Echo (07/07): >60% EF, mild dilated right ventricle, severe pulm hypertension, mild TR, moderate concentric left ventricular hypertrophy new compared to prior echo pulm consulted s/p TNKase (07/10) Continue Duonebs, arformoterol, prednisone PRN tessalon perles, Robitussin Continue Xarelto -will need to be lifelong Currently on 2L NC. Wean oxygen as tolerated Increase activity as tolerated. PT consulted 07/12 CXR with worsening opacity continues with frequent coughing fits add antibiotics to cover for possible pneumonias encourage deep breaths and ambulation Hypertension Continue home medications as appropriate Chronic back/leg pain History of traumatic fall (s/p multiple back/leg surgeries) Scoliosis PRN pain medication Activity as tolerated. VTE: Xarelto Code: Full Dispo: Home ~1 day wean O2, ambulating
--- NOTE | 2023-07-13 17:13 | EKG ---
Test Date: 2023-07-07 Test Time: 07:57:10 [employer]: PREETI MEASUREMENT RESULTS: Intervals: Rate: 109 ME: 152 QRSD: 84 QT: 358 QTc: 482 [place]: P: 20 ME: 152 QRS: 4 T: 6 INTERPRETIVE STATEMENTS: Sinus tachycardia Cannot rule out Anterior infarct, age undetermined Abnormal ECG Compared to ECG 12/22/2022 07:59:54 Myocardial infarct finding now present Sinus rhythm no longer present Electronically Signed On 07-13-23 16:57:07 [employer] by Andre Owen
[2023-07-13] MEDS: ALBUTEROL 2.5 MG/3 ML NEB SOL NEB PRN (19:12)
[2023-07-13] MEDS: BENZONATATE 100 MG CAP PO PRN (20:57)
[2023-07-13] MEDS: ATORVASTATIN 20 MG TAB PO SCH (20:58)
[2023-07-14] MEDS: HYDROCODONE/APAP 10/325 TAB PO PRN ×4 (00:40→20:55)
[2023-07-14] MEDS: ALBUTEROL 2.5 MG/3 ML NEB SOL NEB PRN ×2 (00:50→19:54)
[2023-07-14] MEDS: PIBRENTASVIR PO SCH (07:23)
[2023-07-14] MEDS: GLECAPREVIR PO SCH (07:23)
[2023-07-14] MEDS: AMOX/K CLAV 875 MG TAB PO SCH ×2 (07:44→20:55)
[2023-07-14] MEDS: GABAPENTIN 400 MG CAP PO SCH ×3 (07:44→20:56)
[2023-07-14] MEDS: PANTOPRAZOLE 40MG TABLET PO SCH (07:45)
[2023-07-14] MEDS: FLUTICASONE 50MCG NASAL SPRAY NAS SCH ×3 (07:45→21:00)
[2023-07-14] MEDS: hydrOXYzine HCL 25 MG TAB PO SCH (07:45)
[2023-07-14] MEDS: AZITHROMYCIN 250 MG TAB PO SCH (07:45)
[2023-07-14] MEDS: DOCUSATE NA 100 MG CAP PO SCH ×2 (07:45→20:57)
[2023-07-14] MEDS: RIVAROXABAN 15 MG TABLET PO SCH (07:45)
[2023-07-14] MEDS: GUAIFENESIN/CODEINE 5ML UCUP PO PRN ×2 (07:52→17:24)
[2023-07-14] MEDS: ARFORMOTEROL TARTRATE 15 MCG/2 ML VIAL.NEB NEB SCH ×2 (08:00→19:54)
--- NOTE | 2023-07-14 08:34 | P.PN ---
Date of Service: 07/14/23 Subjective: cough/wheezing continues, slowly improving Breathing okay on room air at rest; SPO2 99% however continues to feel short of breath with activity / ambulation Wanting to switch xarelto to eliquis given he has "a lot of eliquis at home", never failed eliquis had episode of lightheadedness earlier today after ambulating, almost fell afebrile ROS: 10 point ROS as noted above, otherwise negative Physical Exam: GEN: Alert, oriented, NAD HEENT: Normal conjunctiva, sclera anicteric CV: Regular rate and rhythm, no edema Pulm: mild labored respirations on room air at rest, diminished at bases b/l, +cough ABD: Soft, nontender, nondistended Neuro: Normal speech, normal affect vitals reviewed Problem List: Acute hypoxemic respiratory failure secondary to acute pulmonary embolus with right heart strain History of DVT/PE Hypertension Chronic back/leg pain History of traumatic fall (s/p multiple back/leg surgeries) Scoliosis Acute hypoxemic respiratory failure secondary to acute pulmonary embolus with right heart strain History of DVT/PE CTA chest (07/07): +PE with mod-large clot burden. New peripheral opacities in right lower lobe Echo (07/07): >60% EF, mild dilated right ventricle, severe pulm hypertension, mild TR, moderate concentric LVH new compared to prior echo pulm consulted s/p TNKase (07/10) Continue Duonebs, arformoterol PRN tessalon perles, Robitussin Xarelto switched to eliquis 07/14 - patient reports having eliquis at home. -Patient will need to be on lifelong anticoagulation Increase activity as tolerated. PT consulted 07/12 CXR (07/13) with worsening opacity continues with frequent coughing fits Continue empiric PO augmentin / Azithromycin (07/13-), added 07/13 for possible pneumonias encourage deep breaths and ambulation monitor today, pt with another episode of lightheadedness after ambulating Hypertension Continue home medications as appropriate Chronic back/leg pain History of traumatic fall (s/p multiple back/leg surgeries) Scoliosis PRN pain medication Activity as tolerated. VTE: xarelto switched to Eliquis Code: Full Dispo: Home, anticipate early AM discharge tomorrow Further improvement of breathing
[2023-07-14] MEDS: BENZONATATE 100 MG CAP PO PRN ×2 (13:07→21:05)
[2023-07-14] MEDS: ATORVASTATIN 20 MG TAB PO SCH (20:56)
[2023-07-14] MEDS: APIXABAN 5 MG TABLET PO SCH (20:56)
[2023-07-15] MEDS: ALBUTEROL 2.5 MG/3 ML NEB SOL NEB PRN (01:02)
[2023-07-15] MEDS: ARFORMOTEROL TARTRATE 15 MCG/2 ML VIAL.NEB NEB SCH (08:05)
[2023-07-15] MEDS: AMOX/K CLAV 875 MG TAB PO SCH (08:34)
[2023-07-15] MEDS: PANTOPRAZOLE 40MG TABLET PO SCH (08:34)
[2023-07-15] MEDS: hydrOXYzine HCL 25 MG TAB PO SCH (08:35)
[2023-07-15] MEDS: AZITHROMYCIN 250 MG TAB PO SCH (08:35)
[2023-07-15] MEDS: GABAPENTIN 400 MG CAP PO SCH (08:35)
[2023-07-15] MEDS: DOCUSATE NA 100 MG CAP PO SCH (08:35)
[2023-07-15] MEDS: APIXABAN 5 MG TABLET PO SCH (08:35)
[2023-07-15] MEDS: HYDROCODONE/APAP 10/325 TAB PO PRN (08:42)
[2023-07-15] MEDS: GUAIFENESIN/CODEINE 5ML UCUP PO PRN (08:42)
--- NOTE | 2023-07-15 08:46 | P.DS ---
Admission Date: 07/09/23 Discharge Date: 07/15/23 Disposition: ROUTINE DISCHARGE Discharge Condition: GOOD Reason for Admission: Pulmonary embolism shortness of breath Consultations: Pulmonology - Dr. Morales Brief History of Present Illness: 53yo M, PMH: DVT/PE, chronic pain with scoliosis, borderline Diabetes, Hypertension HEP C, Umbilical hernia Patient presented to the ED with shortness of breath at rest onset 3 weeks. Dwayne reports having a history of DVTs to his left leg and PE. He states falling 25 feet several years ago requiring multiple surgeries to his back and left leg which resulted in blood clots. He was chronically on Eliquis of which was stopped recently. He also reports being recently vaccinated and assumed his cough and shortness of breath was from a side effect. Initial vitals BP 169 / 99; Pulse 109; Resp 28; Temp 97.8; Pulse Ox 93% on R/A. Significant labs BNP 75, troponin 9.5, D-dimer 5536, platelets 230. CT chest noted Positive for pulmonary embolism with moderate to large clot burden. New small peripheral opacities in the right lower lobe could reflect small pulmonary infarcts . Hospital Course: Problem List: Acute hypoxemic respiratory failure secondary to acute pulmonary embolus with right heart strain History of DVT/PE Hypertension Chronic back/leg pain History of traumatic fall (s/p multiple back/leg surgeries) Scoliosis Patient presented with worsening shortness of breath. Troponins were negative. D-dimer was elevated (5536). CT chest in the ED positive for PE with moderate to large clot burden. Echocardiogram (07/07/23) done, showing normal EF >60%, mild dilated right ventricle. severe pulmonary hypertension, moderate concentric LVH. Pulmonology was consulted. Patient was given thrombolytic therapy - TNKase on 07/10, was started on xarelto and had improvement of his symptoms. Patient also received nebs, steroids, antitussives while hospitalized. Patient was feeling better, breathing more comfortably on room air, and was deemed stable for discharge. Patient received 2 days of Augmentin / azithromycin while hospitalized to cover for possible pneumonias and is to complete 5 more days of PO augmentin on discharge for total of ~7 days of antibiotic treatment. Discussed with patient that he will need to be on lifelong anticoagulation - eliquis. Recommend follow up with pulm in next 1-2 weeks for further monitoring. Consider repeat echocardiogram in a few months to re-evaluate. Medications: Augmentin x5 days Eliquis - lifelong [place] - given holiday and hospitalization interfered with follow up. 10 tablets sent to pharmacy to hold over until follow up with pain doctor christopher buckley Hold lisinopril for now Patient was noted to be normotensive while hospitalized off his home lisinopril. Continue to hold lisinopril for now. Advised to check blood pressure daily. Once consistently > 140 (systolic), can restart lisinopril. Continue other home medications not listed as previously prescribed Follow up: PCP 3-5 days Pulmonology 1-2 weeks Cardiology in ~1 month Physical Exam: GEN: Alert, oriented, NAD HEENT: Normal conjunctiva, sclera anicteric CV: Regular rate and rhythm, no edema Pulm: non-labored respirations on room air at rest, +cough ABD: Soft, nontender, nondistended Neuro: Normal speech, normal affect Vital Signs/Physical Exam: Temp Pulse Resp BP Pulse Ox 97.4 F 81 18 128/91 H 94 07/15/23 04:00 07/15/23 04:00 07/15/23 04:00 07/15/23 04:00 07/15/23 04:00 Laboratory Data at Discharge: WBC 9.10 thou/uL (4.3-10.9) 07/12/23 02:13 Hgb 15.0 g/dL (13.6-17.9) 07/12/23 02:13 Hct 43.5 % (39.6-49.0) 07/12/23 02:13 Plt Count 217 thou/uL (152-406) 07/12/23 02:13 PT 11.4 SECONDS (9.5-12.5) 07/10/23 08:24 INR 1.04 07/10/23 08:24 APTT 34.4 SECONDS (24.3-36.9) 07/10/23 14:27 Sodium 134 mEq/L (136-145) L 07/13/23 01:56 Potassium 4.6 mEq/L (3.5-5.1) 07/13/23 01:56 BUN 19 mg/dL (7-18) H 07/13/23 01:56 Creatinine 0.92 mg/dL (0.70-1.30) 07/13/23 01:56 Glucose 248 mg/dL (74-106) H 07/13/23 01:56 Phosphorus 3.3 mg/dL (2.5-4.9) 07/13/23 01:56 Magnesium 2.1 mg/dL (1.6-2.4) 07/13/23 01:56 Home Medications: Atorvastatin Calcium 20 mg PO DAILY 01/25/22 Lisinopril [Zestril] 1 tab PO DAILY 01/25/22 Omeprazole [Prilosec] 40 mg PO DAILY 01/25/22 Gabapentin 800 mg PO TID 02/02/23 Glecaprevir/Pibrentasvir [Mavyret 100-40 mg Tablet] 1 each PO DAILY 02/02/23 hydrOXYzine HCL [Atarax*] 25 mg PO DAILY 02/02/23 Amox/Clavulanate [Augmentin 875-125 Tab*] 875 mg PO BID 5 Days #10 tab 07/15/23 Apixaban [Eliquis] 5 mg PO BID 30 Days #60 tab 07/15/23 Benzonatate [Tessalon Perle*] 100 mg PO Q6H PRN #20 cap 07/15/23 Hydrocodone/Acetaminophen [Hydrocodon-Acetaminoph 7.5-325] 1 tab PO BID PRN 5 Days #10 tab 07/15/23 New Medications: Amox/Clavulanate [Augmentin 875-125 Tab*] 875 mg PO BID 5 Days #10 tab Apixaban [Eliquis] 5 mg PO BID 30 Days #60 tab Hydrocodone/Acetaminophen [Hydrocodon-Acetaminoph 7.5-325] 1 tab PO BID PRN 5 Days #10 tab PRN Reason: Pain Scale 8-10 (Severe) Benzonatate [Tessalon Perle*] 100 mg PO Q6H PRN #20 cap PRN Reason: Cough Physician Discharge Instructions: Patient presented with worsening shortness of breath. Troponins were negative. D-dimer was elevated (5536). CT chest in the ED positive for PE with moderate to large clot burden. Echocardiogram (07/07/23) done, showing normal EF >60%, mild dilated right ventricle. severe pulmonary hypertension, moderate concentric LVH. Pulmonology was consulted. Patient was given thrombolytic therapy - TNKase on 07/10, was started on xarelto and had improvement of his symptoms. Patient also received nebs, steroids, antitussives while hospitalized. Patient was feeling better, breathing more comfortably on room air, and was deemed stable for discharge. Patient received 2 days of Augmentin / azithromycin while hospitalized to cover for possible pneumonias and is to complete 5 more days of PO augmentin on discharge for total of ~7 days of antibiotic treatment. Discussed with patient that he will need to be on lifelong anticoagulation - eliquis. Recommend follow up with pulm in next 1-2 weeks for further monitoring. Consider repeat echocardiogram in a few months to re-evaluate. Medications: Augmentin x5 days Eliquis - lifelong [place] - given holiday and hospitalization interfered with follow up. 10 tablets sent to pharmacy to hold over until follow up with pain doctor christopher buckley Hold lisinopril for now Patient was noted to be normotensive while hospitalized off his home lisinopril. Continue to hold lisinopril for now. Advised to check blood pressure daily. Once consistently > 140 (systolic), can restart lisinopril. Continue other home medications not listed as previously prescribed. Follow up: PCP 3-5 days Pulmonology 1-2 weeks Cardiology in ~1 month Followup: NONE,NONE [Primary Care Provider] - Time spent managing pt's care (in minutes): 45
[2023-07-15] MEDS: GLECAPREVIR PO SCH (09:00)
[2023-07-15] MEDS: PIBRENTASVIR PO SCH (09:00)
[2023-07-15] MEDS: FLUTICASONE 50MCG NASAL SPRAY NAS SCH (09:00)
[2023-07-15 09:47] VITALS: O2SAT 92
[2023-07-15 10:00] VITALS: BP 142/91; TEMP 97.5
== END 2023-07-15 10:58 | disposition home or self-care (01) | DRG 175 ==
LOC: ER 07:47 → ERHOLD 12:19 → 2ND 12:53 → OBSVTOIN 07-09 14:04 → 3RD-ICU 07-10 09:11 → 2ND 07-11 18:05
PROVIDERS: ADMIT Internal Medicine; ATTEND Hospitalist
PROC: 5A0945A Assistance with Respiratory Ventilation, 24-96 Consecutive Hours, High Flow/Velocity Cannula (ICD-10-PCS; principal; 2023-07-08)
PROC: 3E03317 Introduction of Other Thrombolytic into Peripheral Vein, Percutaneous Approach (ICD-10-PCS; 2023-07-10)
DX: I26.99 Other pulmonary embolism without acute cor pulmonale (principal); J96.01 Acute respiratory failure with hypoxia; I10 Essential (primary) hypertension; M41.9 Scoliosis, unspecified; G89.29 Other chronic pain; M79.606 Pain in leg, unspecified; E11.9 Type 2 diabetes mellitus without complications; I27.20 Pulmonary hypertension, unspecified; I07.1 Rheumatic tricuspid insufficiency; K21.9 Gastro-esophageal reflux disease without esophagitis; B19.20 Unspecified viral hepatitis C without hepatic coma; R05.1 Acute cough; Z79.01 Long term (current) use of anticoagulants; Z11.52 Encounter for screening for COVID-19; Z86.711 Personal history of pulmonary embolism; Z86.718 Personal history of other venous thrombosis and embolism; Z87.891 Personal history of nicotine dependence; Z79.899 Other long term (current) drug therapy
CPT/HCPCS: 36415; 36600; 71045; 71275; 80048; 82805; 83735; 83880; 84100; 84484; 85025; 85379; 85610; 85730; 87811; 93005; 93306; 94640; 94660; 94760; 96372; 97116; 97161; 97530; 99285; G0378; J0360; J1650; J2270; J2405; J3101; J7512; J7605; J7613; J7644; Q9967

== ENCOUNTER 2023-08-02 15:50 | Emergency (ER) | payer OTHER ==
--- OUTSIDE RECORDS SUMMARY | 2023-08-02 15:56 | XMS REPORT | Continuity of Care Document ---
Author Name Unknown Address [address] [facility] [address] [place] [address] [facility] thconnect Address [address] [facility]. [address] [place] [address] Care Team Providers Care Residential Monitor Name Role Phone DIANA JIMENEZ Primary Care Physician Unavailab Diana Purdy Attending Clinician Unavailable ADRIANO ALEXANDER Attending Clinician Unavailable Adriano Alexander MD Attending Clinician FILOMENA DARBY Attending Clinician Unavailable Filomena Darby MD Attending Clinician [phone] Doctor Unassigned, [place] Attending Clinician U Harinder Archer MD Attending Clinician HARINDER ATKINS Attending Clinician Unavailabl e Payers Payer Name Policy Type Policy Number Effective Date Expirati on Date Source [place] [id number] 2022 00:00:00 [facility] [employer] (Medicaid) [id number] 2019 00:00:00 [facility] Problems Condition Name Condition Details Condition Category Status Onset Date Resolution Date Last Treatment Date Treating Clinician Comments Source Dyslipidem ia Dyslipidem ia Disease Active 05-09 00:00: 00 [facility] Essential hypertensi on Essential hypertensi on Disease Active 04-27 00:00: 00 [facility] Chronic deep vein thrombosis (DVT) of popliteal vein Chronic deep vein thrombosis (DVT) of popliteal vein Disease Active 04-27 00:00: 00 [facility] Chronic pulmonary embolism Chronic pulmonary embolism Disease Active 04-27 00:00: 00 [facility] No known active problems No known active problems Disease [facility] [id number] Body mass index [BMI] 34.0-34.9, adult Problem [facility] [id number] Other obesity due to excess calories Problem [facility] [id number] Type 2 diabetes mellitus with hyperglyce amalia, without long-term current use of insulin Problem [facility] [id number] Chronic hepatitis C without hepatic coma Problem [facility] [id number] History of pulmonary embolism Problem [facility] [id number] Peripheral polyneurop athy Problem [facility] [id number] HTN, goal below 140/[address] [facility] [id number] Generalize d anxiety disorder Problem [facility] [id number] Alcohol abuse Problem [facility] [id number] GERD without esophagiti s Problem [facility] [id number] Other chronic pain Problem [facility] [id number] Mixed hyperlipid emia Problem [facility] [id number] Depression with anxiety Problem [facility] Allergies, Adverse Reactions, Alerts Allergy Name Allergy Type Status Severity Reaction(s) Onset Date Inactive Date Treating Clinician Comments Source NO KNOWN ALLERGIE S Drug Class Active [facility] Social History Social Habit Start Date Stop Date Quantity Comments Source History SDOH Alcohol Std Drinks [facility] History SDOH Alcohol Binge [facility] History of Tobacco Use [facility] Sex Assigned At [facility] Exposure to SARS-CoV-2 (event) 2022-08-14 00:00:00 2022-08-24 14:49:00 Not sure [facility] Alcohol intake 2022-08-03 00:00:00 2022-08-03 00:00:00 Lifetime non-drinker (finding) [facility] Tobacco use and exposure 2022-08-03 00:00:00 2022-08-03 00:00:00 Smokeless tobacco non-user [facility] History SDOH Alcohol Frequency 2021-12-21 00:00:00 2021-12-21 00:00:00 1 [facility] Alcohol Comment 2018-04-27 00:00:00 2018-04-27 00:00:00 3 glasses of liquor /5 days a week [facility] Smoking Status Start Date Stop Date Source Never smoked tobacco [facility] Medications Ordered Medication Name Filled Medication Name Start Date Stop Date Current Medication? Ordering Clinician Indication Dosage Frequency Signature (SIG) Comments Components Source apixaban 5 mg tablet 2021-08 14:20: 01 Yes 5mg Take 5 mg by mouth 2 (two) times daily. [facility] thiamine 100 mg tablet 2021-08 14:20: 01 Yes 100mg Take 100 mg by mouth daily. [facility] foLIC acid 1 mg tablet 2021-08 14:20: 01 Yes 1mg Take 1 mg by mouth daily. [facility] hydroCHLORO thiazide 12.5 mg capsule 2021-08 14:20: 01 Yes 12.5mg Take 12.5 mg by mouth daily. [facility] acetaminoph en with codeine (TYLENOL-CO DEINE #3 ORAL) 2021-08 14:20: 01 Yes Take by mouth every 6 (six) hours as needed (Pain). [facility] apixaban 5 mg tablet 2021-08 14:20: 01 Yes 5mg Take 5 mg by mouth 2 (two) times daily. [facility] thiamine 100 mg tablet 2021-08 14:20: 01 Yes 100mg Take 100 mg by mouth daily. [facility] foLIC acid 1 mg tablet 2021-08 14:20: 01 Yes 1mg Take 1 mg by mouth daily. [facility] hydroCHLORO thiazide 12.5 mg capsule 2021-08 14:20: 01 Yes 12.5mg Take 12.5 mg by mouth daily. [facility] acetaminoph en with codeine (TYLENOL-CO DEINE #3 ORAL) 2021-08 14:20: 01 Yes Take by mouth every 6 (six) hours as needed (Pain). [facility] apixaban 5 mg tablet 2021-08 14:20: 01 Yes 5mg Take 5 mg by mouth 2 (two) times daily. [facility] thiamine 100 mg tablet 2021-08 14:20: 01 Yes 100mg Take 100 mg by mouth daily. [facility] foLIC acid 1 mg tablet 2021-08 14:20: 01 Yes 1mg Take 1 mg by mouth daily. [facility] hydroCHLORO thiazide 12.5 mg capsule 2021-08 14:20: 01 Yes 12.5mg Take 12.5 mg by mouth daily. [facility] acetaminoph en with codeine (TYLENOL-CO DEINE #3 ORAL) 2021-08 14:20: 01 Yes Take by mouth every 6 (six) hours as needed (Pain). [facility] apixaban 5 mg tablet 2021-08 14:20: 01 Yes 5mg Take 5 mg by mouth 2 (two) times daily. [facility] thiamine 100 mg tablet 2021-08 14:20: 01 Yes 100mg Take 100 mg by mouth daily. [facility] foLIC acid 1 mg tablet 2021-08 14:20: 01 Yes 1mg Take 1 mg by mouth daily. [facility] hydroCHLORO thiazide 12.5 mg capsule 2021-08 14:20: 01 Yes 12.5mg Take 12.5 mg by mouth daily. [facility] acetaminoph en with codeine (TYLENOL-CO DEINE #3 ORAL) 2021-08 14:20: 01 Yes Take by mouth every 6 (six) hours as needed (Pain). [facility] pantoprazol e 40 mg EC tablet 2021-08 00:00: 00 Yes 40mg Take 40 mg by mouth in the morning. [facility] pantoprazol e 40 mg EC tablet 2021-08 00:00: 00 Yes 40mg Take 40 mg by mouth in the morning. [facility] pantoprazol e 40 mg EC tablet 2021-08 00:00: 00 Yes 40mg Take 40 mg by mouth in the morning. [facility] pantoprazol e 40 mg EC tablet 2021-08 00:00: 00 Yes 40mg Take 40 mg by mouth in the morning. [facility] hydrOXYzine 25 mg tablet 2021-08 00:00: 00 Yes TAKE 1 TABLET BY MOUTH EVERY 8 HOURS NEEDED FOR ANXIETY [facility] hydrOXYzine 25 mg tablet 2021-08 00:00: 00 Yes TAKE 1 TABLET BY MOUTH EVERY 8 HOURS NEEDED FOR ANXIETY [facility] hydrOXYzine 25 mg tablet 2021-08 00:00: 00 Yes TAKE 1 TABLET BY MOUTH EVERY 8 HOURS NEEDED FOR ANXIETY [facility] hydrOXYzine 25 mg tablet 2021-08 00:00: 00 Yes TAKE 1 TABLET BY MOUTH EVERY 8 HOURS NEEDED FOR ANXIETY [facility] methylPREDN ISolone (MEDROL, RITU,) 4 mg tablets 01-15 00:00: 00 Yes [id number] 84mg Take 21 tablets by mouth SEE-INSTRU CTIONS. follow package directions [facility] methylPREDN ISolone (MEDROL, RITU,) 4 mg tablets 01-15 00:00: 00 Yes [id number] 84mg Take 21 tablets by mouth SEE-INSTRU CTIONS. follow package directions [facility] methylPREDN ISolone (MEDROL, RITU,) 4 mg tablets 01-15 00:00: 00 Yes [id number] 84mg Take 21 tablets by mouth SEE-INSTRU CTIONS. follow package directions [facility] methylPREDN ISolone (MEDROL, RITU,) 4 mg tablets 01-15 00:00: 00 Yes [id number] 84mg Take 21 tablets by mouth SEE-INSTRU CTIONS. follow package directions [facility] methylPREDN ISolone (MEDROL, RITU,) 4 mg tablets 01-15 00:00: 00 Yes [id number] 84mg Take 21 tablets by mouth SEE-INSTRU CTIONS. follow package directions [facility] methylPREDN ISolone (MEDROL, RITU,) 4 mg tablets 0 01-15 00:00: 00 Yes [id number] 84mg Take 21 tablets by mouth SEE-INSTRU CTIONS. follow package directions [facility] methylPREDN ISolone (MEDROL, RITU,) 4 mg tablets 01-15 00:00: 00 Yes [id number] 84mg Take 21 tablets by mouth SEE-INSTRU CTIONS. follow package directions [facility] colchicine 0.6 mg Cap 01-15 00:00: 00 01-26 04:59 :00 No [id number] .6mg Take 0.6 mg by mouth 2 (two) times daily for 10 days. [facility] colchicine 0.6 mg Cap 01-15 00:00: 00 01-26 04:59 :00 No [id number] .6mg Take 0.6 mg by mouth 2 (two) times daily for 10 days. [facility] lisinopriL 40 mg tablet 11-09 00:00: 00 Yes 40mg Take 40 mg by mouth daily. [facility] atorvastati n 20 mg tablet 11-09 00:00: 00 Yes 20mg Take 20 mg by mouth daily. [facility] ELIQUIS 5 mg tablet 11-09 00:00: 00 Yes 5mg Take 5 mg by mouth daily. [facility] lisinopriL 40 mg tablet 11-09 00:00: 00 Yes 40mg Take 40 mg by mouth daily. [facility] atorvastati n 20 mg tablet 2021-0 11-09 00:00: 00 Yes 20mg Take 20 mg by mouth daily. [facility] ELIQUIS 5 mg tablet 11-09 00:00: 00 Yes 5mg Take 5 mg by mouth daily. [facility] lisinopriL 40 mg tablet 2021-0 3- 00:00: 00 Yes 40mg Take 40 mg by mouth daily. [facility] lisinopriL 40 mg tablet 2021-0 3 00:00: 00 Yes 40mg Take 40 mg by mouth daily. [facility] atorvastati n 20 mg tablet 2021-0 3- 00:00: 00 Yes 20mg Take 20 mg by mouth daily. [facility] ELIQUIS 5 mg tablet 2021-0 3 00:00: 00 Yes 5mg Take 5 mg by mouth daily. [facility] lisinopriL 40 mg tablet 2021-0 11-09 00:00: 00 Yes 40mg Take 40 mg by mouth daily. [facility] atorvastati n 20 mg tablet 2021-0 11-09 00:00: 00 Yes 20mg Take 20 mg by mouth daily. [facility] ELIQUIS 5 mg tablet 2021-0 3 00:00: 00 Yes 5mg Take 5 mg by mouth daily. [facility] lisinopriL 40 mg tablet 2021-0 3 00:00: 00 Yes 40mg Take 40 mg by mouth daily. [facility] atorvastati n 20 mg tablet 2021-0 11-09 00:00: 00 Yes 20mg Take 20 mg by mouth daily. [facility] ELIQUIS 5 mg tablet 2021-0 3 00:00: 00 Yes 5mg Take 5 mg by mouth daily. [facility] lisinopriL 40 mg tablet 2021-0 3 00:00: 00 Yes 40mg Take 40 mg by mouth daily. [facility] atorvastati n 20 mg tablet 2-0 3- 00:00: 00 Yes 20mg Take 20 mg by mouth daily. [facility] atorvastati n 20 mg tablet 2-0 3- 00:00: 00 Yes 20mg Take 20 mg by mouth daily. [facility] ELIQUIS 5 mg tablet 11-09 00:00: 00 Yes 5mg Take 5 mg by mouth daily. [facility] lisinopriL 40 mg tablet 11-09 00:00: 00 Yes 40mg Take 40 mg by mouth daily. [facility] atorvastati n 20 mg tablet 11-09 00:00: 00 Yes 20mg Take 20 mg by mouth daily. [facility] ELIQUIS 5 mg tablet 11-09 00:00: 00 Yes 5mg Take 5 mg by mouth daily. [facility] lisinopriL 40 mg tablet 11-09 00:00: 00 Yes 40mg Take 40 mg by mouth daily. [facility] atorvastati n 20 mg tablet 11-09 00:00: 00 Yes 20mg Take 20 mg by mouth daily. [facility] ELIQUIS 5 mg tablet 11-09 00:00: 00 Yes 5mg Take 5 mg by mouth daily. [facility] ELIQUIS 5 mg tablet 11-09 00:00: 00 Yes 5mg Take 5 mg by mouth daily. [facility] HydrOXYzine HCl HydrOXYzine HCl 0 8-04 00:00: 00 Yes Diana Jimenez 1 tablet as needed [facility] Diphenhydra mine Diphenhydra mine 2019-0 - 00:00: 00 No 25mg [facility] Diphenhydra mine Diphenhydra mine 2019-0 1-07 00:00: 00 No 25mg [facility] Diphenhydra mine Diphenhydra mine 2020-0 1- 00:00: 00 No 25mg [facility] Diphenhydra mine Diphenhydra mine 2019-0 1- 00:00: 00 No 25mg [facility] Diphenhydra mine Diphenhydra mine 2019-0 1-07 00:00: 00 No 25mg [facility] Diphenhydra mine Diphenhydra mine 2020-0 1-07 00:00: 00 No 25mg [facility] Diphenhydra mine Diphenhydra mine 2019-0 1- 00:00: 00 No 25mg [facility] Diphenhydra mine Diphenhydra mine 2019-0 - 00:00: 00 No 25mg [facility] Diphenhydra mine Diphenhydra mine 0 - 00:00: 00 No 25mg [facility] Diphenhydra mine Diphenhydra mine 0 - 00:00: 00 No 25mg [facility] Diphenhydra mine Diphenhydra mine 2019-0 - 00:00: 00 No 25mg [facility] Diphenhydra mine Diphenhydra mine 0 08-28 00:00: [address] [facility] Diphenhydra mine Diphenhydra mine 0 - 00:00: 00 No 25mg [facility] Diphenhydra mine Diphenhydra mine 0 - 00:00: 00 No 25mg [facility] Diphenhydra mine Diphenhydra mine 2019-0 - 00:00: [address] [facility] Diphenhydra mine Diphenhydra mine 0 08-28 00:00: 00 No 25mg [facility] Diphenhydra mine Diphenhydra mine 2019-0 1- 00:00: 00 No 25mg [facility] Diphenhydra mine Diphenhydra mine 0 - 00:00: 00 No 25mg [facility] Diphenhydra mine Diphenhydra mine 2019-0 1- 00:00: 00 No 25mg [facility] Diphenhydra mine Diphenhydra mine 0 - 00:00: [address] [facility] acetaminoph en-codeine (TYLENOL-CO DEINE #3) 300-30 mg tablet 201810-18 00:00: 00 Yes 1{tbl} Take 1 tablet by mouth every 6 (six) hours as needed for Pain (scale 4-6) (for cough). [facility] acetaminoph en-codeine (TYLENOL-CO DEINE #3) 300-30 mg tablet 2017-08 00:00: 00 Yes 1{tbl} Take 1 tablet by mouth every 6 (six) hours as needed for Pain (scale 4-6) (for cough). [facility] acetaminoph en-codeine (TYLENOL-CO DEINE #3) 300-30 mg tablet 2017-08 00:00: 00 Yes 1{tbl} Take 1 tablet by mouth every 6 (six) hours as needed for Pain (scale 4-6) (for cough). [facility] acetaminoph en-codeine (TYLENOL-CO DEINE #3) 300-30 mg tablet 2017-08 00:00: 00 Yes 1{tbl} Take 1 tablet by mouth every 6 (six) hours as needed for Pain (scale 4-6) (for cough). [facility] acetaminoph en-codeine (TYLENOL-CO DEINE #3) 300-30 mg tablet 2017-08 00:00: 00 Yes 1{tbl} Take 1 tablet by mouth every 6 (six) hours as needed for Pain (scale 4-6) (for cough). [facility] acetaminoph en-codeine (TYLENOL-CO DEINE #3) 300-30 mg tablet 2017-08 00:00: 00 Yes 1{tbl} Take 1 tablet by mouth every 6 (six) hours as needed for Pain (scale 4-6) (for cough). [facility] acetaminoph en-codeine (TYLENOL-CO DEINE #3) 300-30 mg tablet 2017-08 00:00: 00 Yes 1{tbl} Take 1 tablet by mouth every 6 (six) hours as needed for Pain (scale 4-6) (for cough). [facility] acetaminoph en-codeine (TYLENOL-CO DEINE #3) 300-30 mg tablet 2017-08 00:00: 00 Yes 1{tbl} Take 1 tablet by mouth every 6 (six) hours as needed for Pain (scale 4-6) (for cough). [facility] LISINOPRIL 20 mg tablet 2017-08 00:00: 00 Yes TAKE 1 TABLET BY MOUTH ONCE DAILY [facility] LISINOPRIL 20 mg tablet 2017-08 00:00: 00 Yes TAKE 1 TABLET BY MOUTH ONCE DAILY [facility] LISINOPRIL 20 mg tablet 2017-08 00:00: 00 Yes TAKE 1 TABLET BY MOUTH ONCE DAILY [facility] LISINOPRIL 20 mg tablet 2017-08 00:00: 00 Yes TAKE 1 TABLET BY MOUTH ONCE DAILY [facility] LISINOPRIL 20 mg tablet 2017-08 00:00: 00 Yes TAKE 1 TABLET BY MOUTH ONCE DAILY [facility] LISINOPRIL 20 mg tablet 2017-08 00:00: 00 Yes TAKE 1 TABLET BY MOUTH ONCE DAILY [facility] LISINOPRIL 20 mg tablet 2017-08 00:00: 00 Yes TAKE 1 TABLET BY MOUTH ONCE DAILY [facility] LISINOPRIL 20 mg tablet 2017-08 00:00: 00 Yes TAKE 1 TABLET BY MOUTH ONCE DAILY [facility] acetaminoph en with codeine (TYLENOL-CO DEINE #3 ORAL) 2017-08 15:32: 49 Yes Take by mouth every 6 (six) hours as needed (Pain). [facility] apixaban (ELIQUIS) 5 mg tablet 2017-08 15:32: 49 Yes 5mg Take 5 mg by mouth 2 (two) times daily. [facility] thiamine (VITAMIN B-1) 100 mg tablet 2017-08 15:32: 49 Yes 100mg Take 100 mg by mouth daily. [facility] foLIC acid 1 mg tablet 2017-08 15:32: 49 Yes 1mg Take 1 mg by mouth daily. [facility] hydroCHLORO thiazide 12.5 mg capsule 2017-08 15:32: 49 Yes 12.5mg Take 12.5 mg by mouth daily. [facility] acetaminoph en with codeine (TYLENOL-CO DEINE #3 ORAL) 2017-08 15:32: 49 Yes Take by mouth every 6 (six) hours as needed (Pain). [facility] apixaban (ELIQUIS) 5 mg tablet 2017-08 15:32: 49 Yes 5mg Take 5 mg by mouth 2 (two) times daily. [facility] thiamine (VITAMIN B-1) 100 mg tablet 2017-08 15:32: 49 Yes 100mg Take 100 mg by mouth daily. [facility] foLIC acid 1 mg tablet 2017-08 15:32: 49 Yes 1mg Take 1 mg by mouth daily. [facility] hydroCHLORO thiazide 12.5 mg capsule 2017-08 15:32: 49 Yes 12.5mg Take 12.5 mg by mouth daily. [facility] acetaminoph en with codeine (TYLENOL-CO DEINE #3 ORAL) 2017-08 15:32: 49 Yes Take by mouth every 6 (six) hours as needed (Pain). [facility] apixaban (ELIQUIS) 5 mg tablet 2017-08 15:32: 49 Yes 5mg Take 5 mg by mouth 2 (two) times daily. [facility] thiamine (VITAMIN B-1) 100 mg tablet 2017-08 15:32: 49 Yes 100mg Take 100 mg by mouth daily. [facility] foLIC acid 1 mg tablet 2017-08 15:32: 49 Yes 1mg Take 1 mg by mouth daily. [facility] hydroCHLORO thiazide 12.5 mg capsule 2017-08 15:32: 49 Yes 12.5mg Take 12.5 mg by mouth daily. [facility] acetaminoph en with codeine (TYLENOL-CO DEINE #3 ORAL) 2017-08 15:32: 49 Yes Take by mouth every 6 (six) hours as needed (Pain). [facility] apixaban (ELIQUIS) 5 mg tablet 2017-08 15:32: 49 Yes 5mg Take 5 mg by mouth 2 (two) times daily. [facility] thiamine (VITAMIN B-1) 100 mg tablet 2017-08 15:32: 49 Yes 100mg Take 100 mg by mouth daily. [facility] foLIC acid 1 mg tablet 2017-08 15:32: 49 Yes 1mg Take 1 mg by mouth daily. [facility] hydroCHLORO thiazide 12.5 mg capsule 2017-08 15:32: 49 Yes 12.5mg Take 12.5 mg by mouth daily. [facility] apixaban (ELIQUIS) 5 mg (74 tabs) [facility] 04-27 00:00: 00 Yes 5mg Take 5 mg by mouth 2 (two) times daily. [facility] apixaban (ELIQUIS) 5 mg (74 tabs) [facility] 04-27 00:00: 00 Yes 5mg Take 5 mg by mouth 2 (two) times daily. [facility] apixaban (ELIQUIS) 5 mg (74 tabs) [facility] 04-27 00:00: 00 Yes 5mg Take 5 mg by mouth 2 (two) times daily. [facility] apixaban (ELIQUIS) 5 mg (74 tabs) [facility] 04-27 00:00: 00 Yes 5mg Take 5 mg by mouth 2 (two) times daily. [facility] apixaban (ELIQUIS) 5 mg (74 tabs) [facility] 04-27 00:00: 00 Yes 5mg Take 5 mg by mouth 2 (two) times daily. [facility] apixaban (ELIQUIS) 5 mg (74 tabs) [facility] 04-27 00:00: 00 Yes 5mg Take 5 mg by mouth 2 (two) times daily. [facility] apixaban (ELIQUIS) 5 mg (74 tabs) [facility] 04-27 00:00: 00 Yes 5mg Take 5 mg by mouth 2 (two) times daily. [facility] apixaban (ELIQUIS) 5 mg (74 tabs) [facility] 2018-0 9-06 00:00: 00 Yes 5mg Take 5 mg by mouth 2 (two) times daily. [facility] Gabapentin Gabapentin Yes Diana Jimenez [address] [facility] Atorvastati n Calcium Atorvastati n Calcium Yes Diana Jimenez [address] [facility] Omeprazole Omeprazole Yes Diana Jimenez 1 capsule 30 minutes before morning meal [facility] Questa Questa Yes Diana Jimenez [address] [facility] Eliquis Eliquis Yes Diana Jimenez TAKE 1 TABLET BY MOUTH EVERY DAY [facility] Lisinopril Lisinopril Yes Diana Jimenez [address] [facility] Cyclobenzap rine HCl Cyclobenzap rine HCl Yes Diana Jimenez [address] [facility] Lisinopril Lisinopril Yes Diana Jimenez TAKE 1 TABLET BY MOUTH ONCE DAILY [facility] Eliquis 5 MG Eliquis 5 MG No 1{table t} QD Eliquis 5 MG Omeprazole 40 MG Omeprazole 40 MG No QD Omeprazole 40 MG Questa 7.5-325 MG Questa 7.5-325 MG No 1{table t_as_ne eded} Questa 7.5-325 MG Cyclobenzap rine HCl 5 MG Cyclobenzap rine HCl 5 MG No 1{table t_at_be dtime_a s_neede d} QD Cyclobenza afua HCl 5 MG Eliquis 5 MG Eliquis 5 MG No Eliquis 5 MG Lisinopril 40 MG Lisinopril 40 MG No 1{table t} QD Lisinopril 40 MG Lisinopril 40 MG Lisinopril 40 MG No 1{table t} QD Lisinopril 40 MG Gabapentin 800 MG Gabapentin 800 MG No 1{table t} TID Gabapentin 800 MG Atorvastati n Calcium 20 MG Atorvastati n Calcium 20 MG No 1{table t} QD Atorvastat in Calcium 20 MG hydrOXYzine HCl 25 MG hydrOXYzine HCl 25 MG No hydrOXYzin e HCl 25 MG Eliquis 5 MG Eliquis 5 MG No Eliquis 5 MG Lisinopril 40 MG Lisinopril 40 MG No Lisinopril 40 MG Questa 7.5-325 MG Questa 7.5-325 MG No 1{table t_as_ne eded} Questa 7.5-325 MG Cyclobenzap rine HCl 5 MG Cyclobenzap rine HCl 5 MG No 1{table t_at_be dtime_a s_neede d} QD Cyclobenza afua HCl 5 MG Omeprazole 40 MG Omeprazole 40 MG No QD Omeprazole 40 MG hydrOXYzine HCl 25 MG hydrOXYzine HCl 25 MG No 1{table t_as_ne eded} hydrOXYzin e HCl 25 MG Gabapentin 800 MG Gabapentin 800 MG No 1{table t} TID Gabapentin 800 MG Atorvastati n Calcium 20 MG Atorvastati n Calcium 20 MG No Atorvastat in Calcium 20 MG hydrOXYzine HCl 25 MG hydrOXYzine HCl 25 MG No hydrOXYzin e HCl 25 MG Eliquis 5 MG Eliquis 5 MG No 1{table t} QD Eliquis 5 MG Questa 7.5-325 MG Questa 7.5-325 MG No 1{table t_as_ne eded} Questa 7.5-325 MG Cyclobenzap rine HCl 5 MG Cyclobenzap rine HCl 5 MG No 1{table t_at_be dtime_a s_neede d} QD Cyclobenza afua HCl 5 MG Atorvastati n Calcium 20 MG Atorvastati n Calcium 20 MG No Atorvastat in Calcium 20 MG Lisinopril 40 MG Lisinopril 40 MG No 1{table t} QD Lisinopril 40 MG hydrOXYzine HCl 25 MG hydrOXYzine HCl 25 MG No hydrOXYzin e HCl 25 MG Gabapentin 800 MG Gabapentin 800 MG No 1{table t} TID Gabapentin 800 MG Omeprazole 40 MG Omeprazole 40 MG No QD Omeprazole 40 MG Eliquis 5 MG Eliquis 5 MG No Eliquis 5 MG Lisinopril 40 MG Lisinopril 40 MG No Lisinopril 40 MG Atorvastati n Calcium 20 MG Atorvastati n Calcium 20 MG No 1{table t} QD Atorvastat in Calcium 20 MG hydrOXYzine HCl 25 MG hydrOXYzine HCl 25 MG No 1{table t_as_ne eded} hydrOXYzin e HCl 25 MG hydrOXYzine HCl 25 MG hydrOXYzine HCl 25 MG No hydrOXYzin e HCl 25 MG Atorvastati n Calcium 20 MG Atorvastati n Calcium 20 MG No Atorvastat in Calcium 20 MG Eliquis 5 MG Eliquis 5 MG No Eliquis 5 MG Cyclobenzap rine HCl 5 MG Cyclobenzap rine HCl 5 MG No 1{table t_at_be dtime_a s_neede d} QD Cyclobenza afua HCl 5 MG Lisinopril 40 MG Lisinopril 40 MG No 1{table t} QD Lisinopril 40 MG Atorvastati n Calcium 20 MG Atorvastati n Calcium 20 MG No 1{table t} QD Atorvastat in Calcium 20 MG Questa 7.5-325 MG Questa 7.5-325 MG No 1{table t_as_ne eded} Questa 7.5-325 MG Eliquis 5 MG Eliquis 5 MG No 1{table t} QD Eliquis 5 MG Lisinopril 40 MG Lisinopril 40 MG No Lisinopril 40 MG Omeprazole 40 MG Omeprazole 40 MG No QD Omeprazole 40 MG Gabapentin 800 MG Gabapentin 800 MG No 1{table t} TID Gabapentin 800 MG hydrOXYzine HCl 25 MG hydrOXYzine HCl 25 MG No hydrOXYzin e HCl 25 MG Atorvastati n Calcium 20 MG Atorvastati n Calcium 20 MG No Atorvastat in Calcium 20 MG Eliquis 5 MG Eliquis 5 MG No Eliquis 5 MG Cyclobenzap rine HCl 5 MG Cyclobenzap rine HCl 5 MG No 1{table t_at_be dtime_a s_neede d} QD Cyclobenza afua HCl 5 MG Lisinopril 40 MG Lisinopril 40 MG No 1{table t} QD Lisinopril 40 MG Atorvastati n Calcium 20 MG Atorvastati n Calcium 20 MG No 1{table t} QD Atorvastat in Calcium 20 MG Questa 7.5-325 MG Questa 7.5-325 MG No 1{table t_as_ne eded} Questa 7.5-325 MG Eliquis 5 MG Eliquis 5 MG No 1{table t} QD Eliquis 5 MG Lisinopril 40 MG Lisinopril 40 MG No Lisinopril 40 MG Omeprazole 40 MG Omeprazole 40 MG No QD Omeprazole 40 MG Gabapentin 800 MG Gabapentin 800 MG No 1{table t} TID Gabapentin 800 MG Eliquis 5 MG Eliquis 5 MG No 1{table t} QD Eliquis 5 MG Cyclobenzap rine HCl 5 MG Cyclobenzap rine HCl 5 MG No 1{table t_at_be dtime_a s_neede d} QD Cyclobenza afua HCl 5 MG Gabapentin 800 MG Gabapentin 800 MG No 1{table t} TID Gabapentin 800 MG Atorvastati n Calcium 20 MG Atorvastati n Calcium 20 MG No 1{table t} QD Atorvastat in Calcium 20 MG hydrOXYzine HCl 25 MG hydrOXYzine HCl 25 MG No 1{table t_as_ne eded} hydrOXYzin e HCl 25 MG hydrOXYzine HCl 25 MG hydrOXYzine HCl 25 MG No hydrOXYzin e HCl 25 MG Omeprazole 40 MG Omeprazole 40 MG No QD Omeprazole 40 MG Lisinopril 40 MG Lisinopril 40 MG No 1{table t} QD Lisinopril 40 MG Questa 7.5-325 MG Questa 7.5-325 MG No 1{table t_as_ne eded} Questa 7.5-325 MG Eliquis 5 MG Eliquis 5 MG No 1{table t} QD Eliquis 5 MG Cyclobenzap rine HCl 5 MG Cyclobenzap rine HCl 5 MG No 1{table t_at_be dtime_a s_neede d} QD Cyclobenza afua HCl 5 MG Gabapentin 800 MG Gabapentin 800 MG No 1{table t} TID Gabapentin 800 MG Atorvastati n Calcium 20 MG Atorvastati n Calcium 20 MG No 1{table t} QD Atorvastat in Calcium 20 MG hydrOXYzine HCl 25 MG hydrOXYzine HCl 25 MG No 1{table t_as_ne eded} hydrOXYzin e HCl 25 MG hydrOXYzine HCl 25 MG hydrOXYzine HCl 25 MG No hydrOXYzin e HCl 25 MG Omeprazole 40 MG Omeprazole 40 MG No QD Omeprazole 40 MG Lisinopril 40 MG Lisinopril 40 MG No 1{table t} QD Lisinopril 40 MG Questa 7.5-325 MG Questa 7.5-325 MG No 1{table t_as_ne eded} Questa 7.5-325 MG Eliquis 5 MG Eliquis 5 MG No 1{table t} QD Eliquis 5 MG Cyclobenzap rine HCl 5 MG Cyclobenzap rine HCl 5 MG No 1{table t_at_be dtime_a s_neede d} QD Cyclobenza afua HCl 5 MG Gabapentin 800 MG Gabapentin 800 MG No 1{table t} TID Gabapentin 800 MG Atorvastati n Calcium 20 MG Atorvastati n Calcium 20 MG No 1{table t} QD Atorvastat in Calcium 20 MG hydrOXYzine HCl 25 MG hydrOXYzine HCl 25 MG No 1{table t_as_ne eded} hydrOXYzin e HCl 25 MG hydrOXYzine HCl 25 MG hydrOXYzine HCl 25 MG No hydrOXYzin e HCl 25 MG Omeprazole 40 MG Omeprazole 40 MG No QD Omeprazole 40 MG Lisinopril 40 MG Lisinopril 40 MG No 1{table t} QD Lisinopril 40 MG Questa 7.5-325 MG Questa 7.5-325 MG No 1{table t_as_ne eded} Questa 7.5-325 MG hydrOXYzine HCl 25 MG hydrOXYzine HCl 25 MG No hydrOXYzin e HCl 25 MG Benzonatate 200 MG Benzonatate 200 MG No 1{capsu le_as_n eeded} Benzonatat e 200 MG Lisinopril 40 MG Lisinopril 40 MG No 1{table t} QD Lisinopril 40 MG Atorvastati n Calcium 20 MG Atorvastati n Calcium 20 MG No 1{table t} QD Atorvastat in Calcium 20 MG hydrOXYzine HCl 25 MG hydrOXYzine HCl 25 MG No 1{table t_as_ne eded} hydrOXYzin e HCl 25 MG Cyclobenzap rine HCl 5 MG Cyclobenzap rine HCl 5 MG No 1{table t_at_be dtime_a s_neede d} QD Cyclobenza afua HCl 5 MG Gabapentin 800 MG Gabapentin 800 MG No 1{table t} TID Gabapentin 800 MG Questa 7.5-325 MG Questa 7.5-325 MG No 1{table t_as_ne eded} Questa 7.5-325 MG Eliquis 5 MG Eliquis 5 MG No 1{table t} QD Eliquis 5 MG Omeprazole 40 MG Omeprazole 40 MG No QD Omeprazole 40 MG Azithromyci n 250 MG Azithromyci n 250 MG No QD Azithromyc in 250 MG methylPREDN ISolone 4 MG methylPREDN ISolone 4 MG No QD methylPRED NISolone 4 MG hydrOXYzine HCl 25 MG hydrOXYzine HCl 25 MG No hydrOXYzin e HCl 25 MG Benzonatate 200 MG Benzonatate 200 MG No 1{capsu le_as_n eeded} Benzonatat e 200 MG Lisinopril 40 MG Lisinopril 40 MG No 1{table t} QD Lisinopril 40 MG Atorvastati n Calcium 20 MG Atorvastati n Calcium 20 MG No 1{table t} QD Atorvastat in Calcium 20 MG hydrOXYzine HCl 25 MG hydrOXYzine HCl 25 MG No 1{table t_as_ne eded} hydrOXYzin e HCl 25 MG Cyclobenzap rine HCl 5 MG Cyclobenzap rine HCl 5 MG No 1{table t_at_be dtime_a s_neede d} QD Cyclobenza afua HCl 5 MG Gabapentin 800 MG Gabapentin 800 MG No 1{table t} TID Gabapentin 800 MG Questa 7.5-325 MG Questa 7.5-325 MG No 1{table t_as_ne eded} Questa 7.5-325 MG Eliquis 5 MG Eliquis 5 MG No 1{table t} QD Eliquis 5 MG Omeprazole 40 MG Omeprazole 40 MG No QD Omeprazole 40 MG Azithromyci n 250 MG Azithromyci n 250 MG No QD Azithromyc in 250 MG methylPREDN ISolone 4 MG methylPREDN ISolone 4 MG No QD methylPRED NISolone 4 MG hydrOXYzine HCl 25 MG hydrOXYzine HCl 25 MG No hydrOXYzin e HCl 25 MG Benzonatate 200 MG Benzonatate 200 MG No 1{capsu le_as_n eeded} Benzonatat e 200 MG Lisinopril 40 MG Lisinopril 40 MG No 1{table t} QD Lisinopril 40 MG Atorvastati n Calcium 20 MG Atorvastati n Calcium 20 MG No 1{table t} QD Atorvastat in Calcium 20 MG hydrOXYzine HCl 25 MG hydrOXYzine HCl 25 MG No 1{table t_as_ne eded} hydrOXYzin e HCl 25 MG Cyclobenzap rine HCl 5 MG Cyclobenzap rine HCl 5 MG No 1{table t_at_be dtime_a s_neede d} QD Cyclobenza afua HCl 5 MG Gabapentin 800 MG Gabapentin 800 MG No 1{table t} TID Gabapentin 800 MG Questa 7.5-325 MG Questa 7.5-325 MG No 1{table t_as_ne eded} Questa 7.5-325 MG Eliquis 5 MG Eliquis 5 MG No 1{table t} QD Eliquis 5 MG Omeprazole 40 MG Omeprazole 40 MG No QD Omeprazole 40 MG Azithromyci n 250 MG Azithromyci n 250 MG No QD Azithromyc in 250 MG methylPREDN ISolone 4 MG methylPREDN ISolone 4 MG No QD methylPRED NISolone 4 MG Atorvastati n Calcium 20 MG Atorvastati n Calcium 20 MG No 1{table t} QD Atorvastat in Calcium 20 MG Benzonatate 200 MG Benzonatate 200 MG No 1{capsu le_as_n eeded} Benzonatat e 200 MG Cyclobenzap rine HCl 5 MG Cyclobenzap rine HCl 5 MG No 1{table t_at_be dtime_a s_neede d} QD Cyclobenza afua HCl 5 MG Questa 7.5-325 MG Questa 7.5-325 MG No 1{table t_as_ne eded} Questa 7.5-325 MG hydrOXYzine HCl 25 MG hydrOXYzine HCl 25 MG No hydrOXYzin e HCl 25 MG Omeprazole 40 MG Omeprazole 40 MG No QD Omeprazole 40 MG methylPREDN ISolone 4 MG methylPREDN ISolone 4 MG No QD methylPRED NISolone 4 MG Lisinopril 40 MG Lisinopril 40 MG No 1{table t} QD Lisinopril 40 MG hydrOXYzine HCl 25 MG hydrOXYzine HCl 25 MG No 1{table t_as_ne eded} hydrOXYzin e HCl 25 MG Gabapentin 800 MG Gabapentin 800 MG No 1{table t} TID Gabapentin 800 MG Eliquis 5 MG Eliquis 5 MG No 1{table t} QD Eliquis 5 MG Azithromyci n 250 MG Azithromyci n 250 MG No QD Azithromyc in 250 MG hydrOXYzine HCl 25 MG hydrOXYzine HCl 25 MG No hydrOXYzin e HCl 25 MG methylPREDN ISolone 4 MG methylPREDN ISolone 4 MG No QD methylPRED NISolone 4 MG Questa 7.5-325 MG Questa 7.5-325 MG No 1{table t_as_ne eded} Questa 7.5-325 MG Gabapentin 800 MG Gabapentin 800 MG No 1{table t} TID Gabapentin 800 MG Omeprazole 40 MG Omeprazole 40 MG No QD Omeprazole 40 MG Atorvastati n Calcium 20 MG Atorvastati n Calcium 20 MG No 1{table t} QD Atorvastat in Calcium 20 MG hydrOXYzine HCl 25 MG hydrOXYzine HCl 25 MG No 1{table t_as_ne eded} hydrOXYzin e HCl 25 MG Lisinopril 40 MG Lisinopril 40 MG No 1{table t} QD Lisinopril 40 MG Cyclobenzap rine HCl 5 MG Cyclobenzap rine HCl 5 MG No 1{table t_at_be dtime_a s_neede d} QD Cyclobenza afua HCl 5 MG Azithromyci n 250 MG Azithromyci n 250 MG No QD Azithromyc in 250 MG Eliquis 5 MG Eliquis 5 MG No 1{table t} QD Eliquis 5 MG Benzonatate 200 MG Benzonatate 200 MG No 1{capsu le_as_n eeded} Benzonatat e 200 MG Lisinopril 40 MG Lisinopril 40 MG No 1{table t} QD Lisinopril 40 MG Gabapentin 800 MG Gabapentin 800 MG No 1{table t} TID Gabapentin 800 MG Cyclobenzap rine HCl 5 MG Cyclobenzap rine HCl 5 MG No 1{table t_at_be dtime_a s_neede d} QD Cyclobenza afua HCl 5 MG Questa 7.5-325 MG Questa 7.5-325 MG No 1{table t_as_ne eded} Questa 7.5-325 MG Omeprazole 40 MG Omeprazole 40 MG No QD Omeprazole 40 MG Eliquis 5 MG Eliquis 5 MG No Eliquis 5 MG methylPREDN ISolone 4 MG methylPREDN ISolone 4 MG No QD methylPRED NISolone 4 MG hydrOXYzine HCl 25 MG hydrOXYzine HCl 25 MG No hydrOXYzin e HCl 25 MG Azithromyci n 250 MG Azithromyci n 250 MG No QD Azithromyc in 250 MG Atorvastati n Calcium 20 MG Atorvastati n Calcium 20 MG No 1{table t} QD Atorvastat in Calcium 20 MG Benzonatate 200 MG Benzonatate 200 MG No 1{capsu le_as_n eeded} Benzonatat e 200 MG Lisinopril 40 MG Lisinopril 40 MG No 1{table t} QD Lisinopril 40 MG hydrOXYzine HCl 25 MG hydrOXYzine HCl 25 MG No hydrOXYzin e HCl 25 MG Omeprazole 40 MG Omeprazole 40 MG No QD Omeprazole 40 MG Glyxambi 10-5 MG Glyxambi 10-5 MG No 1{table t_in_th e_morni ng} QD Glyxambi 10-5 MG Glyxambi 10-5 MG Glyxambi 10-5 MG No 1{table t_in_th e_morni ng} QD Glyxambi 10-5 MG Eliquis 5 MG Eliquis 5 MG No 1{table t} QD Eliquis 5 MG Lisinopril 40 MG Lisinopril 40 MG No Lisinopril 40 MG hydrOXYzine HCl 25 MG hydrOXYzine HCl 25 MG No 1{table t_as_ne eded} hydrOXYzin e HCl 25 MG Atorvastati n Calcium 20 MG Atorvastati n Calcium 20 MG No 1{table t} QD Atorvastat in Calcium 20 MG Cyclobenzap rine HCl 5 MG Cyclobenzap rine HCl 5 MG No 1{table t_at_be dtime_a s_neede d} QD Cyclobenza afua HCl 5 MG Atorvastati n Calcium 20 MG Atorvastati n Calcium 20 MG No Atorvastat in Calcium 20 MG Trulicity Trulicity No Trulicity Questa 7.5-325 MG Questa 7.5-325 MG No 1{table t_as_ne eded} Questa 7.5-325 MG Gabapentin 800 MG Gabapentin 800 MG No Gabapentin 800 MG Lisinopril 40 MG Lisinopril 40 MG No 1{table t} QD Lisinopril 40 MG hydrOXYzine HCl 25 MG hydrOXYzine HCl 25 MG No hydrOXYzin e HCl 25 MG Omeprazole 40 MG Omeprazole 40 MG No QD Omeprazole 40 MG Glyxambi 10-5 MG Glyxambi 10-5 MG No 1{table t_in_ e_morni ng} QD Glyxambi 10-5 MG Glyxambi 10-5 MG Glyxambi 10-5 MG No 1{table t_in_ e_morni ng} QD Glyxambi 10-5 MG Eliquis 5 MG Eliquis 5 MG No 1{table t} QD Eliquis 5 MG Lisinopril 40 MG Lisinopril 40 MG No Lisinopril 40 MG hydrOXYzine HCl 25 MG hydrOXYzine HCl 25 MG No 1{table t_as_ne eded} hydrOXYzin e HCl 25 MG Atorvastati n Calcium 20 MG Atorvastati n Calcium 20 MG No 1{table t} QD Atorvastat in Calcium 20 MG Cyclobenzap rine HCl 5 MG Cyclobenzap rine HCl 5 MG No 1{table t_at_be dtime_a s_neede d} QD Cyclobenza afua HCl 5 MG Atorvastati n Calcium 20 MG Atorvastati n Calcium 20 MG No Atorvastat in Calcium 20 MG Trulicity Trulicity No Trulicity Questa 7.5-325 MG Questa 7.5-325 MG No 1{table t_as_ne eded} Questa 7.5-325 MG Gabapentin 800 MG Gabapentin 800 MG No Gabapentin 800 MG Lisinopril 40 MG Lisinopril 40 MG No 1{table t} QD Lisinopril 40 MG hydrOXYzine HCl 25 MG hydrOXYzine HCl 25 MG No hydrOXYzin e HCl 25 MG Omeprazole 40 MG Omeprazole 40 MG No QD Omeprazole 40 MG Glyxambi 10-5 MG Glyxambi 10-5 MG No 1{table t_in_ e_morni ng} QD Glyxambi 10-5 MG Glyxambi 10-5 MG Glyxambi 10-5 MG No 1{table t_in_ e_morni ng} QD Glyxambi 10-5 MG Eliquis 5 MG Eliquis 5 MG No 1{table t} QD Eliquis 5 MG Lisinopril 40 MG Lisinopril 40 MG No Lisinopril 40 MG hydrOXYzine HCl 25 MG hydrOXYzine HCl 25 MG No 1{table t_as_ne eded} hydrOXYzin e HCl 25 MG Atorvastati n Calcium 20 MG Atorvastati n Calcium 20 MG No 1{table t} QD Atorvastat in Calcium 20 MG Cyclobenzap rine HCl 5 MG Cyclobenzap rine HCl 5 MG No 1{table t_at_be dtime_a s_neede d} QD Cyclobenza afua HCl 5 MG Atorvastati n Calcium 20 MG Atorvastati n Calcium 20 MG No Atorvastat in Calcium 20 MG Trulicity Trulicity No Trulicity Questa 7.5-325 MG Questa 7.5-325 MG No 1{table t_as_ne eded} Questa 7.5-325 MG Gabapentin 800 MG Gabapentin 800 MG No Gabapentin 800 MG Lisinopril 40 MG Lisinopril 40 MG No 1{table t} QD Lisinopril 40 MG hydrOXYzine HCl 25 MG hydrOXYzine HCl 25 MG No hydrOXYzin e HCl 25 MG Omeprazole 40 MG Omeprazole 40 MG No QD Omeprazole 40 MG Glyxambi 10-5 MG Glyxambi 10-5 MG No 1{table t_in_ e_morni ng} QD Glyxambi 10-5 MG Glyxambi 10-5 MG Glyxambi 10-5 MG No 1{table t_in_ e_morni ng} QD Glyxambi 10-5 MG Eliquis 5 MG Eliquis 5 MG No 1{table t} QD Eliquis 5 MG Lisinopril 40 MG Lisinopril 40 MG No Lisinopril 40 MG hydrOXYzine HCl 25 MG hydrOXYzine HCl 25 MG No 1{table t_as_ne eded} hydrOXYzin e HCl 25 MG Gabapentin 800 MG Gabapentin 800 MG No Gabapentin 800 MG Cyclobenzap rine HCl 5 MG Cyclobenzap rine HCl 5 MG No 1{table t_at_be dtime_a s_neede d} QD Cyclobenza afua HCl 5 MG Atorvastati n Calcium 20 MG Atorvastati n Calcium 20 MG No 1{table t} QD Atorvastat in Calcium 20 MG Trulicity Trulicity No Trulicity Questa 7.5-325 MG Questa 7.5-325 MG No 1{table t_as_ne eded} Questa 7.5-325 MG Lisinopril 40 MG Lisinopril 40 MG No 1{table t} QD Lisinopril 40 MG hydrOXYzine HCl 25 MG hydrOXYzine HCl 25 MG No hydrOXYzin e HCl 25 MG Omeprazole 40 MG Omeprazole 40 MG No QD Omeprazole 40 MG Glyxambi 10-5 MG Glyxambi 10-5 MG No 1{table t_in_th e_morni ng} QD Glyxambi 10-5 MG Glyxambi 10-5 MG Glyxambi 10-5 MG No 1{table t_in_th e_morni ng} QD Glyxambi 10-5 MG Eliquis 5 MG Eliquis 5 MG No 1{table t} QD Eliquis 5 MG Lisinopril 40 MG Lisinopril 40 MG No Lisinopril 40 MG hydrOXYzine HCl 25 MG hydrOXYzine HCl 25 MG No 1{table t_as_ne eded} hydrOXYzin e HCl 25 MG Gabapentin 800 MG Gabapentin 800 MG No Gabapentin 800 MG Cyclobenzap rine HCl 5 MG Cyclobenzap rine HCl 5 MG No 1{table t_at_be dtime_a s_neede d} QD Cyclobenza afua HCl 5 MG Atorvastati n Calcium 20 MG Atorvastati n Calcium 20 MG No 1{table t} QD Atorvastat in Calcium 20 MG Trulicity Trulicity No Trulicity Questa 7.5-325 MG Questa 7.5-325 MG No 1{table t_as_ne eded} Questa 7.5-325 MG Lisinopril 40 MG Lisinopril 40 MG No 1{table t} QD Lisinopril 40 MG hydrOXYzine HCl 25 MG hydrOXYzine HCl 25 MG No hydrOXYzin e HCl 25 MG Omeprazole 40 MG Omeprazole 40 MG No QD Omeprazole 40 MG Glyxambi 10-5 MG Glyxambi 10-5 MG No 1{table t_in_th e_morni ng} QD Glyxambi 10-5 MG Glyxambi 10-5 MG Glyxambi 10-5 MG No 1{table t_in_th e_morni ng} QD Glyxambi 10-5 MG Eliquis 5 MG Eliquis 5 MG No 1{table t} QD Eliquis 5 MG Lisinopril 40 MG Lisinopril 40 MG No Lisinopril 40 MG hydrOXYzine HCl 25 MG hydrOXYzine HCl 25 MG No 1{table t_as_ne eded} hydrOXYzin e HCl 25 MG Gabapentin 800 MG Gabapentin 800 MG No Gabapentin 800 MG Cyclobenzap rine HCl 5 MG Cyclobenzap rine HCl 5 MG No 1{table t_at_be dtime_a s_neede d} QD Cyclobenza afua HCl 5 MG Atorvastati n Calcium 20 MG Atorvastati n Calcium 20 MG No 1{table t} QD Atorvastat in Calcium 20 MG Trulicity Trulicity No Trulicity Questa 7.5-325 MG Questa 7.5-325 MG No 1{table t_as_ne eded} Questa 7.5-325 MG Lisinopril 40 MG Lisinopril 40 MG No 1{table t} QD Lisinopril 40 MG Eliquis 5 MG Eliquis 5 MG No 1{table t} QD Eliquis 5 MG Atorvastati n Calcium 20 MG Atorvastati n Calcium 20 MG No Atorvastat in Calcium 20 MG Omeprazole 40 MG Omeprazole 40 MG No QD Omeprazole 40 MG Gabapentin 800 MG Gabapentin 800 MG No 1{table t} TID Gabapentin 800 MG hydrOXYzine HCl 25 MG hydrOXYzine HCl 25 MG No 1{table t_as_ne eded} hydrOXYzin e HCl 25 MG Eliquis 5 MG Eliquis 5 MG No Eliquis 5 MG Atorvastati n Calcium 20 MG Atorvastati n Calcium 20 MG No 1{table t} QD Atorvastat in Calcium 20 MG Questa 7.5-325 MG Questa 7.5-325 MG No 1{table t_as_ne eded} Questa 7.5-325 MG Cyclobenzap rine HCl 5 MG Cyclobenzap rine HCl 5 MG No 1{table t_at_be dtime_a s_neede d} QD Cyclobenza afua HCl 5 MG Lisinopril 40 MG Lisinopril 40 MG No 1{table t} QD Lisinopril 40 MG hydrOXYzine HCl 25 MG hydrOXYzine HCl 25 MG No hydrOXYzin e HCl 25 MG hydrOXYzine HCl 25 MG hydrOXYzine HCl 25 MG No 1{table t_as_ne eded} hydrOXYzin e HCl 25 MG Atorvastati n Calcium 20 MG Atorvastati n Calcium 20 MG No Atorvastat in Calcium 20 MG Immunizations Ordered Immunization Name Filled Immunization Name Date Status Comments Source Shingrix Shingrix 2022-07-29 15:22:[address] [facility] Shingrix Shingrix 2022-07-29 15:22:[address] [facility] Flucelvax - single dose syringe Flucelvax - single dose syringe 2022-07-29 15:21:[address] [facility] Flucelvax - single dose syringe Flucelvax - single dose syringe 2022-07-29 15:21:[address] [facility] Pneumovax (PPSV23) Pneumovax (PPSV23) 2021-03-30 14:37:[address] [facility] Pneumovax (PPSV23) Pneumovax (PPSV23) 2021-03-30 14:37:[address] [facility] Pneumovax (PPSV23) Pneumovax (PPSV23) 2021-03-30 14:37:[address] [facility] Pneumovax (PPSV23) Pneumovax (PPSV23) 2021-03-30 14:37:[address] [facility] Pneumovax (PPSV23) Pneumovax (PPSV23) 2021-03-30 14:37:[address] [facility] Pneumovax (PPSV23) Pneumovax (PPSV23) 2021-03-30 14:37:[address] [facility] Pneumovax (PPSV23) Pneumovax (PPSV23) 2021-03-30 14:37:[address] [facility] Pneumovax (PPSV23) Pneumovax (PPSV23) 2021-03-30 14:37:[address] [facility] Pneumovax (PPSV23) Pneumovax (PPSV23) 2021-03-30 14:37:[address] [facility] Pneumovax (PPSV23) Pneumovax (PPSV23) 2021-03-30 14:37:[address] [facility] Pneumovax (PPSV23) Pneumovax (PPSV23) 2021-03-30 14:37:[address] [facility] Pneumovax (PPSV23) Pneumovax (PPSV23) 2021-03-30 14:37:[address] [facility] Pneumovax (PPSV23) Pneumovax (PPSV23) 2021-03-30 14:37:[address] [facility] Pneumovax (PPSV23) Pneumovax (PPSV23) 2021-03-30 14:37:[address] [facility] Pneumovax (PPSV23) Pneumovax (PPSV23) 2021-03-30 14:37:[address] [facility] Afluria single dose Afluria single dose 15:26:[address] [facility] Afluria single dose Afluria single dose 15:26:[address] [facility] Afluria single dose Afluria single dose 15:26:[address] [facility] Afluria single dose Afluria single dose 15:26:[address] [facility] Afluria single dose Afluria single dose 15:26:[address] [facility] Afluria single dose Afluria single dose 15:26:[address] [facility] Afluria single dose Afluria single dose 15:26:[address] [facility] Afluria single dose Afluria single dose 15:26:[address] [facility] Afluria single dose Afluria single dose 15:26:[address] [facility] Afluria single dose Afluria single dose 15:26:[address] [facility] Afluria single dose Afluria single dose 15:26:[address] [facility] Afluria single dose Afluria single dose 15:26:[address] [facility] Afluria single dose Afluria single dose 15:26:[address] [facility] Afluria single dose Afluria single dose 15:26:[address] [facility] Afluria single dose Afluria single dose 15:26:[address] [facility] Afluria single dose Afluria single dose 13:24:[address] [facility] Afluria single dose Afluria single dose 13:24:[address] [facility] Afluria single dose Afluria single dose 13:24:[address] [facility] Afluria single dose Afluria single dose 13:24:[address] [facility] Afluria single dose Afluria single dose 13:24:[address] [facility] Afluria single dose Afluria single dose 13:24:[address] [facility] Afluria single dose Afluria single dose 13:24:[address] [facility] Afluria single dose Afluria single dose 13:24:[address] [facility] Afluria single dose Afluria single dose 13:24:[address] [facility] Afluria single dose Afluria single dose 13:24:[address] [facility] Afluria single dose Afluria single dose 13:24:[address] [facility] Afluria single dose Afluria single dose 13:24:[address] [facility] Afluria single dose Afluria single dose 13:24:[address] [facility] Afluria single dose Afluria single dose 13:24:[address] [facility] Afluria single dose Afluria single dose 13:24:[address] [facility] Afluria single dose Afluria single dose Unknown Completed [facility] Afluria single dose Afluria single dose Unknown Completed [facility] Fluarix Fluarix Unknown Completed [facility] Shingrix Shingrix Unknown Completed [facility] Flucelvax - single dose syringe Flucelvax - single dose syringe Unknown Completed [facility] Pneumovax (PPSV23) Pneumovax (PPSV23) Unknown Completed [facility] Afluria single dose Afluria single dose Unknown Completed [facility] Afluria single dose Afluria single dose Unknown Completed [facility] Fluarix Fluarix Unknown Completed [facility] Shingrix Shingrix Unknown Completed [facility] Flucelvax - single dose syringe Flucelvax - single dose syringe Unknown Completed [facility] Pneumovax (PPSV23) Pneumovax (PPSV23) Unknown Completed [facility] Afluria single dose Afluria single dose Unknown Completed [facility] Afluria single dose Afluria single dose Unknown Completed [facility] Fluarix Fluarix Unknown Completed [facility] Shingrix Shingrix Unknown Completed [facility] Flucelvax - single dose syringe Flucelvax - single dose syringe Unknown Completed [facility] Pneumovax (PPSV23) Pneumovax (PPSV23) Unknown Completed [facility] Afluria single dose Afluria single dose Unknown Completed [facility] Afluria single dose Afluria single dose Unknown Completed [facility] Fluarix Fluarix Unknown Completed [facility] Shingrix Shingrix Unknown Completed [facility] Flucelvax - single dose syringe Flucelvax - single dose syringe Unknown Completed [facility] Pneumovax (PPSV23) Pneumovax (PPSV23) Unknown Completed [facility] Afluria single dose Afluria single dose Unknown Completed [facility] Afluria single dose Afluria single dose Unknown Completed [facility] Fluarix Fluarix Unknown Completed [facility] Shingrix Shingrix Unknown Completed [facility] Flucelvax - single dose syringe Flucelvax - single dose syringe Unknown Completed [facility] Pneumovax (PPSV23) Pneumovax (PPSV23) Unknown Completed [facility] Afluria single dose Afluria single dose Unknown Completed [facility] Afluria single dose Afluria single dose Unknown Completed [facility] Fluarix Fluarix Unknown Completed [facility] Shingrix Shingrix Unknown Completed [facility] Flucelvax - single dose syringe Flucelvax - single dose syringe Unknown Completed [facility] Pneumovax (PPSV23) Pneumovax (PPSV23) Unknown Completed [facility] Vital Signs Vital Name Observation Time Observation Value Comments S capricece height 2023-01-31 14:50:00 65.5 [in_i] Comm on [facility] weight 2023-01-31 14:50:00 225 [lb_av] Comm on [facility] temperature 2023-01-31 14:50:00 97.3 [degF] Com mon [facility] bmi 2023-01-31 14:50:00 36.87 kg/m2 Comm on [facility] oximetry 2023-01-31 14:50:00 97 % Commo n [facility] respiratory rate 2023-01-31 14:50:00 16 /min Common [facility] blood pressure systolic 2023-01-31 14:50:00 142 mm[Hg] [facility] blood pressure diastolic 2023-01-31 14:50:00 80 mm[Hg] [facility] height 2022-10-25 15:30:00 65.5 [in_i] Comm on [facility] weight 2022-10-25 15:30:00 226.6 [lb_av] Co mmon [facility] temperature 2022-10-25 15:30:00 97.3 [degF] Com mon [facility] bmi 2022-10-25 15:30:00 37.13 kg/m2 Comm on [facility] oximetry 2022-10-25 15:30:00 97 % Commo n [facility] respiratory rate 2022-10-25 15:30:00 17 /min [facility] blood pressure systolic 2022-10-25 15:30:00 124 mm[Hg] [facility] blood pressure diastolic 2022-10-25 15:30:00 72 mm[Hg] [facility] Systolic blood pressure 2022-08-24 21:00:00 156 mm[Hg] [facility] Diastolic blood pressure 2022-08-24 21:00:00 97 mm[Hg] [facility] Heart rate 2022-08-24 20:57:00 83 /min [facility] Body temperature 2022-08-24 20:57:00 36.67 [facility] Respiratory rate 2022-08-24 20:57:00 16 /min [facility] Body height 2022-08-24 20:57:00 170.2 cm [facility] Body weight 2022-08-24 20:57:00 104.781 kg [facility] BMI 2022-08-24 20:57:00 36.18 kg/m2 [facility] Oxygen saturation in Arterial blood by Pulse oximetry 2022-08-24 20:57:00 96 /min [facility] Systolic blood pressure 2022-08-03 20:16:00 155 mm[Hg] [facility] Diastolic blood pressure 2022-08-03 20:16:00 96 mm[Hg] [facility] Heart rate 2022-08-03 20:16:00 92 /min [facility] Body temperature 2022-08-03 20:15:00 37 Evette [facility] Respiratory rate 2022-08-03 20:15:00 18 /min [facility] Body height 2022-08-03 20:15:00 170.2 cm [facility] Body weight 2022-08-03 20:15:00 101.696 kg [facility] BMI 2022-08-03 20:15:00 35.11 kg/m2 [facility] Oxygen saturation in Arterial blood by Pulse oximetry 2022-08-03 20:15:00 94 /min [facility] height 2022-07-29 15:20:00 65.5 [in_i] Comm on [facility] weight 2022-07-29 15:20:00 225.9 [lb_av] Co mmon [facility] temperature 2022-07-29 15:20:00 97.7 [degF] Com mon [facility] bmi 2022-07-29 15:20:00 37.02 kg/m2 Comm on [facility] oximetry 2022-07-29 15:20:00 98 % Commo n [facility] respiratory rate 2022-07-29 15:20:00 18 /min Common [facility] blood pressure systolic 2022-07-29 15:20:00 139 mm[Hg] [facility] blood pressure diastolic 2022-07-29 15:20:00 77 mm[Hg] Common [facility] height 2022-05-04 11:20:00 65.5 [in_i] Comm on [facility] weight 2022-05-04 11:20:00 213 [lb_av] Comm on [facility] bmi 2022-05-04 11:20:00 34.9 kg/m2 Commo n [facility] height 2022-03-24 15:40:00 65.5 [in_i] Comm on [facility] weight 2022-03-24 15:40:00 213 [lb_av] Comm on [facility] temperature 2022-03-24 15:40:00 99.0 [degF] Com mon [facility] bmi 2022-03-24 15:40:00 34.9 kg/m2 Commo n [facility] oximetry 2022-03-24 15:40:00 95 % Commo n [facility] respiratory rate 2022-03-24 15:40:00 16 /min [facility] blood pressure systolic 2022-03-24 15:40:00 134 mm[Hg] [facility] blood pressure diastolic 2022-03-24 15:40:00 88 mm[Hg] [facility] Systolic blood pressure 2022-01-15 15:31:00 145 mm[Hg] [facility] Diastolic blood pressure 2022-01-15 15:31:00 91 mm[Hg] [facility] Heart rate 2022-01-15 15:31:00 90 /min [facility] Oxygen saturation in Arterial blood by Pulse oximetry 2022-01-15 15:31:00 95 /min [facility] Body height 2022-01-15 15:22:00 167.6 cm [facility] Body weight 2022-01-15 15:22:00 100.2 kg [facility] BMI 2022-01-15 15:22:00 35.65 kg/m2 [facility] height 2021-12-23 14:20:00 67 [in_i] Commo n [facility] weight 2021-12-23 14:20:00 215.5 [lb_av] Co mmon [facility] temperature 2021-12-23 14:20:00 98.0 [degF] Com mon [facility] bmi 2021-12-23 14:20:00 33.75 kg/m2 Comm on [facility] oximetry 2021-12-23 14:20:00 96 % Commo n [facility] respiratory rate 2021-12-23 14:20:00 17 /min [facility] blood pressure systolic 2021-12-23 14:20:00 132 mm[Hg] [facility] blood pressure diastolic 2021-12-23 14:20:00 87 mm[Hg] [facility] Systolic blood pressure 2021-12-21 20:39:00 153 mm[Hg] [facility] Diastolic blood pressure 2021-12-21 20:39:00 74 mm[Hg] [facility] Heart rate 2021-12-21 20:39:00 87 /min [facility] Body height 2021-12-21 20:39:00 170.2 cm [facility] Body weight 2021-12-21 20:39:00 63.05 kg [facility] BMI 2021-12-21 20:39:00 21.77 kg/m2 [facility] height 2021-07-02 14:20:00 67 [in_i] Commo n [facility] weight 2021-07-02 14:20:00 205 [lb_av] Comm on [facility] temperature 2021-07-02 14:20:00 98 [degF] Comm on [facility] bmi 2021-07-02 14:20:00 32.1 kg/m2 Commo n [facility] blood pressure systolic 2021-07-02 14:20:00 128 mm[Hg] [facility] blood pressure diastolic 2021-07-02 14:20:00 78 mm[Hg] [facility] Procedures Procedure Date / Time Performed Performing Clinicia n Source REFERRAL- REQUEST/RESPONSE 2022-07-06 06:01:00 Doctor Unassigned, [place] [facility] SCANNED LAB RESULTS 2021-12-28 05:01:00 Doctor U nassigned, [place] [facility] Encounters Start Date/Time End Date/Time Encounter Type Admission Type Attending [facility] Care Facility Care Department Encounter ID Source 2023-06-02 16:21:00 Outpatient Jimenez, [facility] STL[facility] [id number] [facility] 2022-10-25 14:53:01 Outpatient Jimenez, [facility] ST[facility] [id number] [facility] 2022-07-28 15:02:01 Outpatient Jimenez, Diana [facility] STLMLC [id number] [facility] 2022-06-29 15:13:00 Outpatient Jimenez, [facility] ST[facility] [id number] [facility] 2022-03-25 12:17:00 Outpatient Jimenez, Diana [facility] [id number] [facility] 2022-03-04 13:08:00 Outpatient Jimenez, Diana [facility] STL[facility] [id number] [facility] 2021-12-24 08:55:00 Outpatient Jimenez, Diana [facility] [id number] [facility] 2021-10-21 10:55:01 Outpatient Jimenez, [facility] [id number] [facility] 2021-10-12 09:48:01 Outpatient Jimenez, Diana STLMLC STLMLC [id number] [facility] 2021-10-08 11:48:01 Outpatient Jimenez, Diana STLMLC STLMLC [id number] [facility] 2021-09-16 14:12:10 Outpatient Jimenez, Diana STLMLC STLMLC [id number] [facility] 2021-09-16 13:35:35 Outpatient Jimenez, Diana STLMLC STLMLC [id number] [facility] 2021-09-16 12:59:49 Outpatient Jimenez, Diana STLMLC STLMLC [id number] [facility] 2021-09-16 12:53:40 Outpatient Jimenez, Diana STLMLC STLMLC [id number] [facility] 2021-09-16 12:24:31 Outpatient Jimenez, Diana STLMLC STLMLC [id number] [facility] 2021-09-16 11:58:12 Outpatient Jimenez, Diana STLMLC STLMLC [id number] [facility] 2021-09-16 11:57:01 Outpatient Jimenez, Diana STLMLC STLMLC [id number] [facility] 2021-09-16 11:32:27 Outpatient Jimenez, Diana STLMLC STLMLC [id number] [facility] 2021-09-16 11:18:43 Outpatient Jimenez, Diana STLMLC STLMLC [id number] [facility] 2021-09-16 11:17:53 Outpatient Jimenez, Diana STLMLC STLMLC [id number] [facility] 2021-09-16 11:02:12 Outpatient Jimenez, Diana STLMLC STLMLC [id number] [facility] 2023-02-16 00:00:00 2023-02-16 00:00:00 (TEL) STLMLC STLMLC [id number] [facility] 2023-01-31 00:00:00 2023-01-31 00:00:00 OFFICE VISIT ESTAB PT LEVEL [id number] [facility] 2023-01-31 00:00:00 2023-01-31 00:00:00 (TEL) STLMLC STLMLC [id number] [facility] 2022-10-27 00:00:00 2022-10-27 00:00:00 (TEL) STLMLC STLMLC [id number] [facility] 2022-10-26 00:00:00 2022-10-26 00:00:00 (TEL) STLMLC STLMLC [id number] [facility] 2022-10-25 00:00:00 2022-10-25 00:00:00 OFFICE VISIT ESTAB PT LEVEL [id number] [facility] 2022-09-13 00:00:00 2022-09-13 00:00:00 (TEL) STLMLC STLMLC [id number] [facility] 2022-08-24 15:00:00 2022-08-24 15:15:00 Office Visit Adriano Alexander [facility] [id number] 350.1.13.10 4.2.7.2.686 [id number] [facility] 2022-08-24 15:00:00 2022-08-24 15:00:00 Outpatient R ADRIANO ALEXANDER [facility] [id number] [facility] 2022-08-03 14:30:00 2022-08-03 14:46:13 Outpatient R FILOMENA DARBY [facility] [id number] [facility] 2022-08-03 14:30:00 2022-08-03 14:46:13 Office Visit Filomena Darby [facility] [id number] 350.1.13.10 4.2.7.2.686 [id number] [facility] 2022-07-29 14:30:00 2022-07-29 14:30:00 Outpatient FILOMENA HARTMANN [facility] [id number] [facility] 2022-07-29 00:00:00 2022-07-29 00:00:00 OFFICE VISIT ESTAB PT LEVEL [id number] [facility] 2022-07-27 15:00:00 2022-07-27 15:00:00 Outpatient FILOMENA HARTMANN [facility] [id number] [facility] 2022-07-06 00:00:00 2022-07-06 00:00:00 Orders Only Doctor Unassigned, [place] [facility] [id number] 350.1.13.10 4.2.7.2.686 [id number] [facility] 2022-07-05 00:00:00 2022-07-05 00:00:00 (TEL) STLMLC STLMLC [id number] [facility] 2022-05-04 00:00:00 2022-05-04 00:00:00 OL DIG E/M SVC 11-[id number] [facility] 2022-05-04 00:00:00 2022-05-04 00:00:00 (TEL) STLMLC STLMLC [id number] [facility] 2022-05-03 00:00:00 2022-05-03 00:00:00 (TEL) STLMLC STLMLC [id number] [facility] 2022-04-05 00:00:00 2022-04-05 00:00:00 (TEL) STLMLC STLMLC [id number] [facility] 2022-03-30 00:00:00 2022-03-30 00:00:00 (TEL) [facility] [id number] [facility] 2022-03-24 00:00:00 2022-03-24 00:00:00 (WELLNESS) Wellness Visit [facility] [id number] [facility] 2022-03-01 00:00:00 2022-03-01 00:00:00 (TEL) STLMLC STLC [id number] [facility] 2022-02-18 00:00:00 2022-02-18 00:00:00 (TEL) [facility] [id number] [facility] 2022-01-20 00:00:00 2022-01-20 00:00:00 Telephone Harinder Atkins [facility] [id number] 350.1.13.10 4.2.7.2.686 [id number] [facility] 2022-01-15 11:00:00 2022-01-15 11:32:20 Office Visit Harinder Atkins [facility] 1.2.840.114 350.1.13.10 4.2.7.2.686 [id number] [facility] 2022-01-15 11:00:00 2022-01-15 11:32:20 Outpatient R HARINDER ATKINS [facility] [id number] [facility] 2022-01-15 11:00:00 2022-01-15 11:32:20 Outpatient R HARINDER ATKINS [facility] [id number] [facility] 2022-01-15 11:00:00 2022-01-15 11:00:00 Outpatient R HARINDER ATKINS [facility] [id number] [facility] 2022-01-07 00:00:00 2022-01-07 00:00:00 Orders Only Doctor Unassigned, [place] [facility] 1..114 350.1.13.10 4.2.7.2.686 [id number] [facility] 2021-12-28 14:30:00 2021-12-28 14:30:00 Outpatient R HARINDER ATKINS [facility] [id number] [facility] 2021-12-28 14:30:00 2021-12-28 14:30:00 Outpatient R HARINDER ATKINS [facility] [id number] [facility] 2021-12-28 14:30:00 2021-12-28 14:30:00 Outpatient R HARINDER ATKINS [facility] [id number] [facility] 2021-12-28 00:00:00 2021-12-28 00:00:00 Orders Only Doctor Unassigned, [place] [facility] 1.840.114 350.1.13.10 4.2.7.2.686 [id number] [facility] 2021-12-23 00:00:00 2021-12-23 00:00:00 OFFICE VISIT ESTAB PT LEVEL 4 STLMLC [facility]C [id number] [facility] 2021-12-21 15:43:28 2021-12-21 23:59:00 Outpatient HARINDER KANG [facility] [id number] [facility] 2021-12-21 15:43:28 2021-12-21 23:59:00 Outpatient R HARINDER ATKINS [facility] [id number] [facility] 2021-12-21 15:30:00 2021-12-21 16:07:00 Outpatient R HARINDER ATKINS [facility] [id number] [facility] 2021-12-21 15:30:00 2021-12-21 16:07:00 [facility] 1.840.114 350.1.13.10 4.2.7.2.686 [id number] [facility] 2021-11-11 00:00:00 2021-11-11 00:00:00 (TEL) STLMLC STLMLC [id number] [facility] 2021-11-02 00:00:00 2021-11-02 00:00:00 (TEL) STLMLC STLMLC [id number] [facility] 2021-07-02 00:00:00 2021-07-02 00:00:00 OFFICE VISIT ESTAB PT LEVEL [id number] [facility] 2021-03-30 00:00:00 2021-03-30 00:00:00 Outpatient STLMLC STLMLC [id number] [facility] 2020-12-25 00:00:00 2020-12-25 00:00:00 Outpatient STLMLC STLMLC [id number] [facility] 2020-09-18 00:00:00 2020-09-18 00:00:00 Outpatient [facility]MLC [facility]LMLC [id number] [facility] 2020-09-15 00:00:00 2020-09-15 00:00:00 Outpatient STLMLC STLMLC [id number] [facility] 2020-06-12 00:00:00 2020-06-12 00:00:00 Outpatient STLMLC STLMLC [id number] [facility] 2020-06-02 00:00:00 2020-06-02 00:00:00 Outpatient STLMLC STLMLC [id number] [facility] 2020-03-25 15:00:00 2020-03-25 15:00:[address] [facility] [id number] [facility] 2020-03-18 16:51:00 2020-03-18 16:51:00 Outpatient [facility] [id number] [facility] 2020-02-05 16:26:00 2020-02-05 16:26:00 Outpatient [facility] [id number] [facility] 2019-12-11 13:15:00 2019-12-11 13:15:00 Outpatient [facility] [id number] [facility] 2019-10-16 08:56:00 2019-10-16 08:56:00 Outpatient [facility] [id number] [facility] 2019-10-12 09:41:00 2019-10-12 09:41:00 Outpatient [facility] [id number] [facility] 2019-09-26 09:14:00 2019-09-26 09:14:00 Outpatient [facility] [id number] [facility] 2019-09-11 16:41:00 2019-09-11 16:41:00 Outpatient [facility] [id number] [facility] 2019-09-11 14:45:00 2019-09-11 14:45:00 Outpatient [facility] [id number] [facility] Results Test Description Test Time Test Comments Results Result Co mments Source HEMOGLOBIN [id number] 00:00:00* Test Item Value Reference Range Interpretation Comme nts HEMOGLOBIN A1c (test code = 4548-4) 6.0 % See_Comment H [Automated [employer]] The system which generated this result transmitted reference range: 4.2-5.6 %. The reference range was not used to interpret this result as normal/abnormal. LIPID PANEL WITH REFLEX DIRECT [id number] 00:00:00* Test Item Value Reference Range Interpretation Comme nts CALC LDL CHOL (test code = 32832-7) 88 MG/DL See_Comment [Automated messa ge] The system which generated this result transmitted reference range: <100 MG/DL. The reference range was not used to interpret this result as normal/abnormal. CHOLESTEROL (test code = 2093-3) 163 MG/DL See_Comment [Automated [employer]] The system which generated this result transmitted reference range: <200 MG/DL. The reference range was not used to interpret this result as normal/abnormal. HDL CHOLESTEROL (test code = 2085-9) 54 MG/DL See_Comment [Automated [employer]] The system which generated this result transmitted reference range: >39 MG/DL. The reference range was not used to interpret this result as normal/abnormal. RISK RATIO LDL/HDL (test code = 64919-5) 1.63 RATIO See_Comment [Automated message] The system which generated this result transmitted reference range: <3.55 RATIO. The reference range was not used to interpret this result as normal/abnormal. TRIGLYCERIDES (test code = 2571-8) 115 MG/DL See_Comment [Automated [employer]] The system which generated this result transmitted reference range: <150 MG/DL. The reference range was not used to interpret this result as normal/abnormal. ALBUMIN/CREATININE RATIO, RANDOM [id number] 00:00:00* Test Item Value Reference Range Interpretation Comme nts ALBUMIN, URINE, RANDOM (test code = 97784-2) <0.2 MG/DL NOT ESTAB MG/DL CALC ALBUMIN/CREAT, RND (test code = 33168-4) <3 MG/G See_Comment [Automated [employer]] The system which generated this result transmitted reference range: <30 MG/G. The reference range was not used to interpret this result as normal/abnormal. CREATININE, URINE, CONC. (test code = 2161-8) 72.3 MG/DL NOT ESTAB MG/DL COMPREHENSIVE METABOLIC [id number] 00:00:00* Test Item Value Reference Range Interpretation Comme nts ALBUMIN (test code = 1751-7) 4.2 G/DL See_Comment [Automated [employer]] The system which generated this result transmitted reference range: 3.5-5.2 G/DL. The reference range was not used to interpret this result as normal/abnormal. ALKALINE PHOSPHATASE (test code = 6768-6) 143 U/L See_Comment H [Automated message] The system which generated this result transmitted reference range: 40-121 U/L. The reference range was not used to interpret this result as normal/abnormal. BILIRUBIN, TOTAL (test code = 1975-2) 1.2 MG/DL See_Comment [Automated message] The system which generated this result transmitted reference range: <=1.2 MG/DL. The reference range was not used to interpret this result as normal/abnormal. BUN (test code = 3094-0) 7 MG/DL See_Comment [Automated messa ge] The system which generated this result transmitted reference range: 6-20 MG/DL. The reference range was not used to interpret this result as normal/abnormal. CALCIUM (test code = 98572-6) 9.0 MG/DL See_Comment [Automated messa ge] The system which generated this result transmitted reference range: 8.5-10.5 MG/DL. The reference range was not used to interpret this result as normal/abnormal. CALC A/G RATIO (test code = 1759-0) 1.5 RATIO See_Comment [Automated messa ge] The system which generated this result transmitted reference range: 1.0-2.6 RATIO. The reference range was not used to interpret this result as normal/abnormal. CALC BUN/CREAT (test code = 3097-3) 9 RATIO See_Comment [Automated messa ge] The system which generated this result transmitted reference range: 6-28 RATIO. The reference range was not used to interpret this result as normal/abnormal. CALC GLOBULIN (test code = 16916-3) 2.8 G/DL See_Comment [Automated messa ge] The system which generated this result transmitted reference range: 1.9-3.7 G/DL. The reference range was not used to interpret this result as normal/abnormal. CARBON DIOXIDE (test code = 1963-8) 25 MEQ/L See_Comment [Automated messa ge] The system which generated this result transmitted reference range: 19-31 MEQ/L. The reference range was not used to interpret this result as normal/abnormal. CHLORIDE (test code = 2075-0) 108 MEQ/L See_Comment H [Automated messa ge] The system which generated this result transmitted reference range: 95-107 MEQ/L. The reference range was not used to interpret this result as normal/abnormal. CREATININE (test code = 2160-0) 0.81 MG/DL See_Comment [Automated messa ge] The system which generated this result transmitted reference range: 0.80-1.40 MG/DL. The reference range was not used to interpret this result as normal/abnormal. eGFR (2020 CKD-EPI) (test code = 73805-2) 105 ML/MIN/1.73 See_Comment [Automated message] The system which generated this result transmitted reference range: >60 ML/MIN/1.73. The reference range was not used to interpret this result as normal/abnormal. GLUCOSE (test code = 1558-6) 112 MG/DL See_Comment H [Automated messa ge] The system which generated this result transmitted reference range: 70-99 MG/DL. The reference range was not used to interpret this result as normal/abnormal. POTASSIUM (test code = 2823-3) 4.6 MEQ/L See_Comment [Automated messa ge] The system which generated this result transmitted reference range: 3.5-5.4 MEQ/L. The reference range was not used to interpret this result as normal/abnormal. PROTEIN, TOTAL (test code = 2885-2) 7.0 G/DL See_Comment [Automated messa ge] The system which generated this result transmitted reference range: 6.1-8.3 G/DL. The reference range was not used to interpret this result as normal/abnormal. AST (test code = 1920-8) 23 U/L See_Comment [Automated [employer]] The system which generated this result transmitted reference range: 9-50 U/L. The reference range was not used to interpret this result as normal/abnormal. ALT (test code = 1742-6) 21 U/L See_Comment [Automated messa ge] The system which generated this result transmitted reference range: 5-50 U/L. The reference range was not used to interpret this result as normal/abnormal. SODIUM (test code = 2951-2) 143 MEQ/L See_Comment [Automated messa ge] The system which generated this result transmitted reference range: 133-146 MEQ/L. The reference range was not used to interpret this result as normal/abnormal. CBC W/AUTO [id number] 00:00:00* Test Item Value Reference Range Interpretation Comme nts NUCLEATED RBCS (test code = 88837-0) 0.0 /100 WBC'S See_Comment [Automated messa ge] The system which generated this result transmitted reference range: 0.0 /100 WBC'S. The reference range was not used to interpret this result as normal/abnormal. ABSOLUTE EOSINOPHILS (test code = 17189-5) 0.14 K/UL See_Comment [Automated messa ge] The system which generated this result transmitted reference range: 0.00-0.50 K/UL. The reference range was not used to interpret this result as normal/abnormal. ABSOLUTE LYMPHOCYTES (test code = 50727-4) 2.05 K/UL See_Comment [Automated messa ge] The system which generated this result transmitted reference range: 1.00-4.00 K/UL. The reference range was not used to interpret this result as normal/abnormal. ABSOLUTE MONOCYTES (test code = 83320-7) 0.71 K/UL See_Comment [Automated messa ge] The system which generated this result transmitted reference range: 0.20-1.00 K/UL. The reference range was not used to interpret this result as normal/abnormal. ABSOLUTE NEUTROPHILS (test code = 15030-2) 4.30 K/UL See_Comment [Automated [employer]] The system which generated this result transmitted reference range: 1.50-7.50 K/UL. The reference range was not used to interpret this result as normal/abnormal. BASOPHILS (test code = 97691-5) 0.7 % EOSINOPHILS (test code = 44870-1) 1.9 % HEMATOCRIT (test code = 61500-6) 44.7 % See_Comment [Automated [employer]] The system which generated this result transmitted reference range: 40.0-51.0 %. The reference range was not used to interpret this result as normal/abnormal. HEMOGLOBIN (test code = 718-7) 15.2 G/DL See_Comment [Automated messa ge] The system which generated this result transmitted reference range: 13.5-17.0 G/DL. The reference range was not used to interpret this result as normal/abnormal. LYMPHOCYTES (test code = 96381-8) 28.2 % MCH (test code = 77217-1) 30.2 PG See_Comment [Automated [employer]] The system which generated this result transmitted reference range: 25.0-33.0 PG. The reference range was not used to interpret this result as normal/abnormal. MCHC (test code = 66713-8) 34.0 G/DL See_Comment [Automated messa ge] The system which generated this result transmitted reference range: 31.0-36.0 G/DL. The reference range was not used to interpret this result as normal/abnormal. MCV (test code = 51206-7) 88.7 fL See_Comment [Automated messa ge] The system which generated this result transmitted reference range: 80.0-99.0 fL. The reference range was not used to interpret this result as normal/abnormal. MONOCYTES (test code = 59913-9) 9.8 % NEUTROPHILS (test code = 90157-0) 59.0 % PLATELET COUNT (test code = 01360-0) 288 K/UL See_Comment [Automated messa ge] The system which generated this result transmitted reference range: 130-400 K/UL. The reference range was not used to interpret this result as normal/abnormal. RBC (test code = 54900-6) 5.04 M/UL See_Comment [Automated messa ge] The system which generated this result transmitted reference range: 4.50-6.10 M/UL. The reference range was not used to interpret this result as normal/abnormal. RDW (test code = 71840-9) 13.0 % See_Comment [Automated messa ge] The system which generated this result transmitted reference range: 11.5-15.0 %. The reference range was not used to interpret this result as normal/abnormal. WBC (test code = 03286-6) 7.3 K/UL See_Comment [Automated messa ge] The system which generated this result transmitted reference range: 3.5-11.0 K/UL. The reference range was not used to interpret this result as normal/abnormal. HEMOGLOBIN [id number] 00:00:00* Test Item Value Reference Range Interpretation Comme nts HEMOGLOBIN A1c (test code = 4548-4) 6.6 % See_Comment H [Automated messa ge] The system which generated this result transmitted reference range: 4.2-5.6 %. The reference range was not used to interpret this result as normal/abnormal. LIPID PANEL WITH REFLEX DIRECT [id number] 00:00:00* Test Item Value Reference Range Interpretation Comme nts CALC LDL CHOL (test code = 35409-4) 88 MG/DL See_Comment [Automated messa ge] The system which generated this result transmitted reference range: <100 MG/DL. The reference range was not used to interpret this result as normal/abnormal. CHOLESTEROL (test code = 2093-3) 169 MG/DL See_Comment [Automated messa ge] The system which generated this result transmitted reference range: <200 MG/DL. The reference range was not used to interpret this result as normal/abnormal. HDL CHOLESTEROL (test code = 2085-9) 65 MG/DL See_Comment [Automated [employer]] The system which generated this result transmitted reference range: >39 MG/DL. The reference range was not used to interpret this result as normal/abnormal. RISK RATIO LDL/HDL (test code = 58417-5) 1.35 RATIO See_Comment [Automated message] The system which generated this result transmitted reference range: <3.55 RATIO. The reference range was not used to interpret this result as normal/abnormal. TRIGLYCERIDES (test code = 2571-8) 74 MG/DL See_Comment [Automated [employer]] The system which generated this result transmitted reference range: <150 MG/DL. The reference range was not used to interpret this result as normal/abnormal. ALBUMIN/CREATININE RATIO, RANDOM [id number] 00:00:00* Test Item Value Reference Range Interpretation Comme nts ALBUMIN, URINE, RANDOM (test code = 91430-4) 0.4 MG/DL NOT ESTAB MG/DL CALC ALBUMIN/CREAT, RND (test code = 07262-7) 3 MG/G See_Comment [Automated [employer]] The system which generated this result transmitted reference range: <30 MG/G. The reference range was not used to interpret this result as normal/abnormal. CREATININE, URINE, CONC. (test code = 2161-8) 118.4 MG/DL NOT ESTAB MG/DL COMPREHENSIVE METABOLIC [id number] 00:00:00* Test Item Value Reference Range Interpretation Comme nts ALBUMIN (test code = 1751-7) 4.2 G/DL See_Comment [Automated [employer]] The system which generated this result transmitted reference range: 3.5-5.2 G/DL. The reference range was not used to interpret this result as normal/abnormal. ALKALINE PHOSPHATASE (test code = 6768-6) 138 U/L See_Comment H [Automated message] The system which generated this result transmitted reference range: 40-121 U/L. The reference range was not used to interpret this result as normal/abnormal. BILIRUBIN, TOTAL (test code = 1975-2) 0.8 MG/DL See_Comment [Automated message] The system which generated this result transmitted reference range: <=1.2 MG/DL. The reference range was not used to interpret this result as normal/abnormal. BUN (test code = 3094-0) 15 MG/DL See_Comment [Automated messa ge] The system which generated this result transmitted reference range: 6-20 MG/DL. The reference range was not used to interpret this result as normal/abnormal. CALCIUM (test code = 26306-1) 9.2 MG/DL See_Comment [Automated messa ge] The system which generated this result transmitted reference range: 8.5-10.5 MG/DL. The reference range was not used to interpret this result as normal/abnormal. CALC A/G RATIO (test code = 1759-0) 1.3 RATIO See_Comment [Automated messa ge] The system which generated this result transmitted reference range: 1.0-2.6 RATIO. The reference range was not used to interpret this result as normal/abnormal. CALC BUN/CREAT (test code = 3097-3) 16 RATIO See_Comment [Automated messa ge] The system which generated this result transmitted reference range: 6-28 RATIO. The reference range was not used to interpret this result as normal/abnormal. CALC GLOBULIN (test code = 01200-3) 3.3 G/DL See_Comment [Automated messa ge] The system which generated this result transmitted reference range: 1.9-3.7 G/DL. The reference range was not used to interpret this result as normal/abnormal. CARBON DIOXIDE (test code = 1963-8) 20 MEQ/L See_Comment [Automated messa ge] The system which generated this result transmitted reference range: 19-31 MEQ/L. The reference range was not used to interpret this result as normal/abnormal. CHLORIDE (test code = 2075-0) 106 MEQ/L See_Comment [Automated messa ge] The system which generated this result transmitted reference range: 95-107 MEQ/L. The reference range was not used to interpret this result as normal/abnormal. CREATININE (test code = 2160-0) 0.91 MG/DL See_Comment [Automated messa ge] The system which generated this result transmitted reference range: 0.80-1.40 MG/DL. The reference range was not used to interpret this result as normal/abnormal. eGFR (2020 CKD-EPI) (test code = 61421-8) 100 ML/MIN/1.73 See_Comment [Automated message] The system which generated this result transmitted reference range: >60 ML/MIN/1.73. The reference range was not used to interpret this result as normal/abnormal. GLUCOSE (test code = 1558-6) 112 MG/DL See_Comment H [Automated messa ge] The system which generated this result transmitted reference range: 70-99 MG/DL. The reference range was not used to interpret this result as normal/abnormal. POTASSIUM (test code = 2823-3) 5.3 MEQ/L See_Comment [Automated messa ge] The system which generated this result transmitted reference range: 3.5-5.4 MEQ/L. The reference range was not used to interpret this result as normal/abnormal. PROTEIN, TOTAL (test code = 2885-2) 7.5 G/DL See_Comment [Automated messa ge] The system which generated this result transmitted reference range: 6.1-8.3 G/DL. The reference range was not used to interpret this result as normal/abnormal. AST (test code = 1920-8) 99 U/L See_Comment H [Automated messa ge] The system which generated this result transmitted reference range: 9-50 U/L. The reference range was not used to interpret this result as normal/abnormal. ALT (test code = 1742-6) 100 U/L See_Comment H [Automated messa ge] The system which generated this result transmitted reference range: 5-50 U/L. The reference range was not used to interpret this result as normal/abnormal. SODIUM (test code = 2951-2) 142 MEQ/L See_Comment [Automated messa ge] The system which generated this result transmitted reference range: 133-146 MEQ/L. The reference range was not used to interpret this result as normal/abnormal.
[2023-08-02 16:43] LABS: Absolute Lymphocytes (CBC) 2.5 K/uL (0.7-4.9); Hematocrit 43.9 % (39.6-49.0); Lymphocytes % 28.1 % (15.3-44.8); MCV 93.8 fL (80-100); MPV 6.9 fL (7.6-11.3); Platelets 236 thou/uL (152-406); RBC Red Blood Cell Count 4.68 M/uL (4.33-5.43)
[2023-08-02 16:56] LABS: Albumin 3.2 g/dL (3.4-5.0); Bilirubin Direct 0.3 mg/dL (0-0.2); Bilirubin Indirect, Calculated 0.5 mg/dL (0.2-0.8); Bilirubin Total 0.8 mg/dL (0.2-1.0); Magnesium 2.1 mg/dL (1.6-2.4); Potassium 3.5 mEq/L (3.5-5.1); Protein, Total 7.4 g/dL (6.4-8.2)
--- NOTE | 2023-08-02 17:05 | RAD REPORT ---
EXAM DESCRIPTION: RADChest Single View08/02/2023 4:50 pm CLINICAL HISTORY: back pain COMPARISON: Chest Single View dated 07/13/2023; Chest Single View dated 07/07/2023; Chest Single Vie w dated 12/22/2022; Chest Single View dated 04/13/2022; Chest For Pe Angio dated 07/07/2023 TECHNIQUE: Portable AP view of the chest. FINDINGS: Stable peripheral right basilar airspace opacities. No pneumothorax or effusion. The card iomediastinal contours are unremarkable. IMPRESSION: Stable peripheral right basilar airspace opacities, may relate to atelectasis, pneumonia , or pulmonary infarct.
[2023-08-02] MEDS ORDERED: MORPHINE 4 MG/ML SYR ONE (17:22)
--- NOTE | 2023-08-02 18:28 | RAD REPORT ---
EXAM DESCRIPTION: CT - Chest For Pe Angio - 08/02/2023 5:20 pm CLINICAL HISTORY: RIGHT SIDED BACK PAIN COMPARISON: Chest For Pe Angio dated 07/07/2023; Chest For Pe Angio dated 12/22/2022; Chest For Pe Ang io dated 02/26/2019; Chest For Pe Angio dated 05/14/2018 TECHNIQUE: Thin axial CT images of the chest were obtained following administration of 100 mL Isovue 370 IV contrast. Multiplanar reconstructions, and maximum intensity projection reconstructions were generated and reviewed. Exam utilizes a protocol for optimal evaluation of pulmonary arterial tree. All CT scans are performed using dose optimization technique as appropriate and may include automated exposure control or mA/KV adjustment according to patient size. FINDINGS: Marked interval improvement of the burden of right pulmonary emboli. Small residual partia lly occlusive embolus along the third or fourth order right lower lobe branch, axial image 65. No res idual emboli on the left. No other filling defects or suspicious finding. No acute or significant aor ta findings. Partial improvement of right lower lobe small opacities abutting the major fissure. No other mass or infiltrate in the lung parenchyma. No pleural thickening or pleural effusion. No pneumothorax. No abnormal mediastinal or hilar masses or lymphadenopathy seen. No chest wall mass or abnormal axill iary lymphadenopathy. IMPRESSION: Marked interval improvement of the previously noted pulmonary emboli. Small residual par tially occlusive embolus seen along a third or fourth order right lower lobe branch. No other evidenc e of acute central pulmonary emboli. Partial improvement of right lower lobe peripheral small opacities, may represent atelectasis or reso lving small pulmonary infarct. No other acute pulmonary process.
--- NOTE | 2023-08-02 18:52 | ER ---
Nurse's Notes [facility] Name: Dwayne Walker Jr Age: 53 yrs Sex: Male : 1970 Arrival Date: 08/02/2023 Time: 15:50 Bed 14 Private MD: Diagnosis: Chronic pulmonary embolism Presentation: 08/02 15:47 Chief complaint: EMS states: PATIENT WAS AT PCP OFFICE. SUDDENLY BEGAN HAVING db DIAPHORESIS AND BACK PAIN. UPON EMS ARRIVAL PT WITH BP 180/117 AND DIAPHORETIC. PT GIVEN ASPIRIN 324 MG PO, NITRO 0.4 MG SUBLINGUAL. Coronavirus screen: Client denies travel out of the [place] in the last 14 days. At this time, the client does not indicate any symptoms associated with coronavirus-19. Ebola Screen: Patient negative for fever greater than or equal to 101.5 degrees Fahrenheit, and additional compatible Ebola Virus Disease symptoms Patient denies exposure to infectious person. Patient denies travel to an Ebola-affected area in the 21 days before illness onset. No symptoms or risks identified at this time. Initial Sepsis Screen: Does the patient meet any 2 criteria? No. Patient's initial sepsis screen is negative. Does the patient have a suspected source of infection? No. Patient's initial sepsis screen is negative. Risk Assessment: Do you want to hurt yourself or someone else? Patient reports no desire to harm self or others. Onset of symptoms was August 02, 2023. 15:47 Method Of Arrival: EMS: [facility] db 15:47 Acuity: FÉLIX 2 db 15:47 Care prior to arrival: IV initiated. 18 GA, in the right antecubital area. db Triage Assessment: 15:47 General: Appears in no apparent distress. comfortable, Behavior is calm, cooperative. db Pain: Complains of pain in back. Neuro: Level of Consciousness is awake, alert, obeys commands, Oriented to person, place, time, situation. Respiratory: Airway is patent Respiratory effort is even, unlabored, Respiratory pattern is regular, symmetrical. Musculoskeletal: Circulation, motion, and sensation intact. Capillary refill < 3 seconds, Range of motion: intact in all extremities. Historical: - Allergies: 16:31 No Known Allergies; db - PMHx: 16:30 Borderline Diabetes; Hypertension; Umbilical hernia; Pulmonary Embolism; HEP C; DVT; db - PSHx: 16:30 hernia; Leg surgery; db - Immunization history:: Adult Immunizations unknown. - Social history:: Smoking status: Patient denies any tobacco usage or history of. Screenin:06 [facility] ED Fall Risk Assessment (Adult) History of falling in the last 3 months, db including since admission No falls in past 3 months (0 pts) Confusion or Disorientation No (0 pts) Intoxicated or Sedated No (0 pts) Impaired Gait No (0 pts) Mobility Assist Device Used No (0 pt) Altered Elimination No (0 pt) Score/Fall Risk Level 0 - 2 = Low Risk Oriented to surroundings, Maintained a safe environment. Abuse screen: Denies threats or abuse. Denies injuries from another. Nutritional screening: No deficits noted. Tuberculosis screening: No symptoms or risk factors identified. Assessment: 16:29 Reassessment: Patient appears in no apparent distress at this time. Patient and/or db family updated on plan of care and expected duration. Pain level reassessed. Patient is alert, oriented x 3, equal unlabored respirations, skin warm/dry/pink. BACK PAIN. General: Appears in no apparent distress. comfortable, Behavior is calm, cooperative. Neuro: Level of Consciousness is awake, alert, obeys commands, Oriented to person, place, time, situation, Speech is normal. Respiratory: Airway is patent Respiratory effort is even, unlabored, Respiratory pattern is regular, symmetrical. 17:24 Reassessment: PT RETURNED TO ROOM FROM CT. db 18:06 Reassessment: Patient appears in no apparent distress at this time. Patient and/or db family updated on plan of care and expected duration. Pain level reassessed. Patient is alert, oriented x 3, equal unlabored respirations, skin warm/dry/pink. 18:40 Reassessment: Patient appears in no apparent distress at this time. Patient and/or db family updated on plan of care and expected duration. Pain level reassessed. Patient is alert, oriented x 3, equal unlabored respirations, skin warm/dry/pink. Patient states symptoms have improved. Vital Signs: 15:47 BP 139 / 94; Pulse 78; Resp 18; Temp 98.3; Pulse Ox 95% ; db 16:31 Weight 102.51 kg; Height 5 ft. 6 in. ; db 17:30 BP 149 / 101; Pulse 77; Resp 16; Pulse Ox 96% on R/A; db 18:30 BP 159 / 95; Pulse 73; Resp 16; Pulse Ox 97% on R/A; db 16:31 Body Mass Index 36.48 (102.51 kg, 167.64 cm) db ED Course: 15:47 Arm band placed on Patient placed in an exam room. db 15:55 Patient arrived in ED. db 15:56 Joaquín Cruz DO is Attending Physician. ms3 16:07 Triage completed. db 16:29 Gail Tejeda RN is Primary Nurse. db 16:29 Maintain EMS IV. Dressing intact. Good blood return noted. Site clean \T\ dry. Gauge \T\ db site: 18 G RAC. 16:51 XRAY Chest (1 view) In Process Unspecified. EDMS 17:22 Chest For Pe Angio In Process Unspecified. EDMS 17:49 Attending Physician role handed off by Joaquín Cruz DO ms3 17:49 Carlos Escoto MD is Attending Physician. ms3 18:06 Patient has correct armband on for positive identification. Bed in low position. Call db light in reach. Side rails up X 1. Client placed on continuous cardiac and pulse oximetry monitoring. NIBP monitoring applied. 19:04 Provided Education on: DISCHARGE. db 19:04 No provider procedures requiring assistance completed. IV discontinued, intact, db bleeding controlled, No redness/swelling at site. Administered Medications: 17:10 Drug: morphine IVP or IV 4 mg IVP once over 4 mins Route: IVP; Infused Over: 4 mins; db Site: right antecubital; 19:01 Follow up: Response: No adverse reaction db 18:54 Drug: HYDROcodone-acetaminophen PO 5 mg-325 mg 1 tabs PO once Route: PO; db 19:01 Follow up: Response: No adverse reaction db Medication: 19:04 VIS not applicable for this client. db Outcome: 18:51 Discharge ordered by . rn 19:04 Discharged to home ambulatory, with friend, db 19:04 Condition: stable 19:04 Discharge instructions given to patient, Instructed on discharge instructions, follow up and referral plans. 19:05 Patient left the ED. db Signatures: Dispatcher [employer] EDMS Carlos Escoto MD MD rn Sims, Marcus, DO DO ms3 Tejeda, Gail, RN RN db
--- NOTE | 2023-08-02 18:53 | EDPHYS ---
Physician Documentation [facility] Name: Dwayne Walker Jr Age: 53 yrs Sex: Male : 1970 Arrival Date: 08/02/2023 Time: 15:50 Bed 14 Private MD: ED Physician Carlos Escoto HPI: 08/02 17:18 This 53 yrs old Male presents to ER via EMS with complaints of Back Pain - AND ms3 DIAPHORESIS. 17:18 53-year-old male with past medical history of diabetes, hypertension, pulmonary ms3 embolism, pleurisy, DVT presents to the emergency department via [facility] for back pain and diaphoresis that began at Dr. Jimenez's office 20 minutes prior to arrival. Patient states he was treated for a pulmonary embolism at [facility]. EMS notes patient's initial blood pressure 177/117. Aspirin 324 mg and one 0.4 sublingual nitroglycerin were given. Patient's blood pressure improved to 160/70. Patient states he is currently on his Eliquis and taking the medication. Patient states the episode lasted approximately 10 minutes.. Historical: - Allergies: 16:31 No Known Allergies; db - PMHx: 16:30 Borderline Diabetes; Hypertension; Umbilical hernia; Pulmonary Embolism; HEP C; DVT; db - PSHx: 16:30 hernia; Leg surgery; db - Immunization history:: Adult Immunizations unknown. - Social history:: Smoking status: Patient denies any tobacco usage or history of. ROS: 17:18 Constitutional: Negative for fever, and chills. Cardiovascular: Negative for chest ms3 pain, and palpitations. Respiratory: Negative for shortness of breath, cough, wheezing, and pleuritic chest pain, Abdomen/GI: Negative for abdominal pain, nausea, vomiting, diarrhea, and constipation, 17:18 Back: Positive for Back pain, 17:18 Skin: Positive for diaphoresis, 17:18 All other systems are negative, Exam: 17:18 Constitutional: This is a well developed, well nourished patient who is awake, alert, ms3 and in no acute distress. Chest/axilla: Normal chest wall appearance and motion. Nontender with no deformity. Cardiovascular: Regular rate and rhythm with a normal S1 and S2. No gallops, murmurs, or rubs. Normal PMI, no JVD. No pulse deficits. Respiratory: Lungs have equal breath sounds bilaterally, clear to auscultation and percussion. No rales, rhonchi or wheezes noted. No increased work of breathing, no retractions or nasal flaring. Abdomen/GI: Soft, non-tender, with normal bowel sounds. No distension or tympany. No guarding or rebound. No evidence of tenderness throughout. Skin: Warm, dry with normal turgor. Normal color with no rashes, no lesions, and no evidence of cellulitis. 17:35 ECG was reviewed by the Attending Physician. ms3 Vital Signs: 15:47 BP 139 / 94; Pulse 78; Resp 18; Temp 98.3; Pulse Ox 95% ; db 16:31 Weight 102.51 kg; Height 5 ft. 6 in. ; db 17:30 BP 149 / 101; Pulse 77; Resp 16; Pulse Ox 96% on R/A; db 18:30 BP 159 / 95; Pulse 73; Resp 16; Pulse Ox 97% on R/A; db 16:31 Body Mass Index 36.48 (102.51 kg, 167.64 cm) db MDM: 16:53 Patient medically screened. ms3 17:18 Differential diagnosis: Pulmonary Embolism vs [place] vs Muscle spasm. ms3 17:35 Transition of care: After a detail discussion of the patient's case, care is ms3 transferred to Carlos Escoto MD. 18:50 Data reviewed: vital signs, nurses notes, lab test result(s), EKG, radiologic studies, rn and as a result, I will discharge patient. Counseling: I had a detailed discussion with the patient and/or guardian regarding the historical points, exam findings, and any diagnostic results supporting the discharge/admit diagnosis, lab results, radiology results, the need for outpatient follow up, to return to the emergency department if symptoms worsen or persist or if there are any questions or concerns that arise at home. ED course: Marked improvement in clot burden, completely resolved on the left side. Troponin negative and normal ECG. Will discharge per Dr. Cruz's original plan. Patient has follow-up with hematology and pulmonology. Patient back to baseline at this time.. 08/02 16:13 Order name: Basic Metabolic Panel; Complete Time: 17:11 ms3 08/02 16:13 Order name: CBC with Diff; Complete Time: 17:11 ms3 08/02 16:13 Order name: LFT's; Complete Time: 17:11 ms3 08/02 16:13 Order name: Magnesium; Complete Time: 17:11 ms3 08/02 16:13 Order name: Troponin HS; Complete Time: 17:11 ms3 08/02 16:13 Order name: XRAY Chest (1 view); Complete Time: 17:11 ms3 08/02 17:10 Order name: Chest For Pe Angio; Complete Time: 18:31 EDMS 08/02 16:13 Order name: EKG; Complete Time: 16:15 ms3 08/02 16:13 Order name: Cardiac monitoring; Complete Time: 16:18 ms3 08/02 16:13 Order name: EKG - Nurse/Tech; Complete Time: 16:18 ms3 08/02 16:13 Order name: IV Saline Lock; Complete Time: 16:18 ms3 08/02 16:13 Order name: Labs collected and sent; Complete Time: 17:04 ms3 08/02 16:13 Order name: O2 Per Protocol; Complete Time: 16:18 ms3 08/02 16:13 Order name: O2 Sat Monitoring; Complete Time: 16:18 ms3 EC:35 Rate is 80 beats/min. Rhythm is regular. QRS [place] is Normal. [place] interval is normal. QRS ms3 interval is normal. QT interval is normal. Clinical impression: Normal ECG. Interpreted by me. Reviewed by me. Administered Medications: 17:10 Drug: morphine IVP or IV 4 mg IVP once over 4 mins Route: IVP; Infused Over: 4 mins; db Site: right antecubital; 19:01 Follow up: Response: No adverse reaction db 18:54 Drug: HYDROcodone-acetaminophen PO 5 mg-325 mg 1 tabs PO once Route: PO; db 19:01 Follow up: Response: No adverse reaction db Disposition Summary: 08/02/23 18:51 Discharge Ordered Notes: Location: Home rn Problem: new rn Symptoms: have improved rn Condition: Stable rn Diagnosis - Chronic pulmonary embolism rn Followup: rn - With: Private Physician - When: As needed - Reason: Recheck today's complaints, Re-evaluation by your physician Discharge Instructions: - Discharge Summary Sheet rn - Pulmonary Embolism rn Forms: - Medication Reconciliation Form rn - Thank You Letter rn - Antibiotic rn wellness - Prescription Opioid Use rn - Patient Portal Instructions rn - Leadership Thank You Letter rn Signatures: Dispatcher [employer] EDMS Carlos Escoto MD MD rn Joaquín Cruz DO DO ms3 Gail Tejeda, RN RN db Corrections: (The following items were deleted from the chart) 17:09 16:15 Chest For PE Angio+CT.RAD.BRZ ordered. EDMS EDMS
[2023-08-02] MEDS ORDERED: HYDROCODONE/APAP 5/325 MG TAB ONE (19:11)
[2023-08-02 20:26] VITALS: BP 159/95; O2SAT 97
--- NOTE | 2023-08-03 13:05 | EKG ---
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
== END 2023-08-02 19:05 | disposition home or self-care (01) ==
LOC: ER 15:50
DX: I27.82 Chronic pulmonary embolism (principal); I10 Essential (primary) hypertension; Z86.718 Personal history of other venous thrombosis and embolism
CPT/HCPCS: 93005; 85025; 80048; 36415; 83735; 80076; 84484; 71275; 71045; 96374; 99284; Q9967

== ENCOUNTER 2024-01-17 07:38 | Emergency (ER) | payer OTHER ==
[2024-01-17] MEDS ORDERED: NA CHLORIDE 0.9% 1,000 ML ONE ×3 (07:50→09:00)
[2024-01-17 07:55] LABS: Absolute Eosinophils 0.2 K/uL (0-0.5); Absolute Lymphocytes (CBC) 2.4 K/uL (0.7-4.9); Absolute Monocytes 0.6 K/uL (0.1-1.3); Absolute Neutrophil 5.3 K/uL (1.8-8.0); Basophils % 0.3 % (0-1.3); Eosinophils % 2.5 % (0-4.4); Hematocrit 40.1 % (39.6-49.0); Hemoglobin 13.9 g/dL (13.6-17.9); Lymphocytes % 28.2 % (15.3-44.8); MCH 33.4 pg (27.0-35.0); MCHC 34.6 g/dL (32.0-36.0); MCV 96.4 fL (80-100); MPV 7.1 fL (7.6-11.3); Monocytes % 7.3 % (3.3-12.3); Neutrophils % 61.7 % (41.7-73.7); Nucleated Red Blood Cells % 0.1 % (0-0); Platelets 265 thou/uL (152-406); RBC Red Blood Cell Count 4.16 M/uL (4.33-5.43); Red Cell Distribution Width 13.1 % (12.1-15.2)
[2024-01-17 08:03] LABS: PT Prothrombin Time 17.9 SECONDS (9.5-12.5); Protime INR 1.65
[2024-01-17 08:26] LABS: Albumin 3.1 g/dL (3.4-5.0); Albumin/Globulin Ratio 0.8 (1.1-1.8); Anion Gap 10.7 mEq/L (5.0-15.0); Bilirubin Total 0.4 mg/dL (0.2-1.0); Globulin 3.7 g/dL (2.3-3.5); Potassium 3.7 mEq/L (3.5-5.1); Protein, Total 6.8 g/dL (6.4-8.2)
--- NOTE | 2024-01-17 08:36 | RAD REPORT ---
EXAM DESCRIPTION: CT - Head Brain Wo Cont - 01/17/2024 7:55 am CLINICAL HISTORY: HEADACHE COMPARISON: HEAD BRAIN W O CONTRAST dated 03/13/2010 TECHNIQUE: Noncontrast head CT images ad were obtained without IV contrast. Multiplanar reformats we re generated and reviewed. All CT scans are performed using dose optimization technique as appropriate and may include automated exposure control or mA/KV adjustment according to patient size. FINDINGS: No intracranial hemorrhage, mass, or edema. Midline structures are unremarkable. Normal ventricular caliber for age. Devries-white matter differentiation is preserved, without evidence of acute infarct. No abnormal extra- axial fluid collections. Mild periventricular and deep white matter hypodensities, nonspecific, but suggestive of chronic smal l vessel ischemic changes. Mastoid air cells and visualized portions of the paranasal sinuses are clear. No acute bony findings. IMPRESSION: No evidence of an acute intracranial process.
--- NOTE | 2024-01-17 09:11 | EDPHYS ---
Physician Documentation [facility] Name: Dwayne Walker Jr Age: 53 yrs Sex: Male : 1970 Arrival Date: 01/17/2024 Time: 07:38 Bed 3 Private MD: ED Physician Joaquín Cruz HPI: 01/16 07:45 This 53 yrs old Male presents to ER via Unassigned with complaints of ms3 headache, generalized weakness, dizziness. 07:45 53-year-old male with past medical history of PE, hep C, diabetes, hypertension, ms3 hyperlipidemia presents emergency department via [facility] for headache that began 30 minutes prior to arrival. Patient states the headache is located in the front of his head and rated a 9/10. Patient endorses dizziness and states he has had black stool with generalized weakness for 1 week. He denies nausea or vomiting. He denies any alleviating or inciting factors. [place] the weekend.. Historical: - Allergies: 07:44 No Known Drug Allergies; ll1 - PMHx: 07:44 Borderline Diabetes; HEP C; Hypertension; Pulmonary Embolism; DVT; Umbilical hernia; ll1 - PSHx: 07:44 hernia; Leg surgery; ll1 - Immunization history:: Adult Immunizations up to date. - Infectious Disease History:: Denies. - Social history:: Smoking status: Patient/guardian denies using tobacco, but has a distant history of tobacco abuse. ROS: 07:45 Constitutional: Negative for fever, and chills. Neck: Negative for injury, pain, and ms3 swelling, Cardiovascular: Negative for chest pain, and palpitations. Respiratory: Negative for shortness of breath, cough, wheezing, and pleuritic chest pain, MS/Extremity: Negative for injury and deformity, Skin: Negative for injury, rash, and discoloration, 07:45 Abdomen/GI: Positive for black/tarry stool, Negative for abdominal pain, nausea, vomiting, diarrhea, 07:45 Neuro: Positive for headache, Exam: 07:45 Constitutional: This is a well developed, well nourished patient who is awake, alert, ms3 and in no acute distress. Head/Face: Normocephalic, atraumatic. Neck: Trachea midline, no cervical lymphadenopathy. Supple, full range of motion without nuchal rigidity, or vertebral point tenderness. No Meningismus. Chest/axilla: Normal chest wall appearance and motion. Nontender with no deformity. Cardiovascular: Regular rate and rhythm with a normal S1 and S2. No gallops, murmurs, or rubs. Normal PMI, no JVD. No pulse deficits. Respiratory: Lungs have equal breath sounds bilaterally, clear to auscultation and percussion. No rales, rhonchi or wheezes noted. No increased work of breathing, no retractions or nasal flaring. Abdomen/GI: Soft, non-tender, with normal bowel sounds. No distension or tympany. No guarding or rebound. No evidence of tenderness throughout. Skin: Warm, dry with normal turgor. Normal color with no rashes, no lesions, and no evidence of cellulitis. MS/ Extremity: Pulses equal, no cyanosis. Neurovascular intact. Full, normal range of motion. 09:08 ECG was reviewed by the Attending Physician. ms3 Vital Signs: 07:33 BP 74 / 53; Pulse 90; Resp 18; Pulse Ox 97% on R/A; ko1 07:45 Temp 97.8(TE); ll1 07:56 BP 71 / 62; Pulse 89; Resp 16; Pulse Ox 97% ; ko1 08:15 BP 84 / 53; Pulse 86; Resp 16; Pulse Ox 95% ; ko1 08:53 BP 102 / 67; Pulse 82; Resp 17; Pulse Ox 95% on R/A; ko1 09:20 BP 107 / 63; Pulse 84; Resp 15; Pulse Ox 94% on R/A; ko1 10:02 BP 97 / 58; Pulse 82; Resp 16; Pulse Ox 95% ; ko1 10:25 BP 103 / 61; Pulse 78; Resp 16; Pulse Ox 97% ; ko1 10:45 BP 111 / 74; Pulse 86; Resp 16; Pulse Ox 99% ; ko1 11:08 BP 115 / 72; Pulse 83; Resp 15; Pulse Ox 94% ; ko1 12:00 BP 103 / 64; Pulse 79; Resp 18; Pulse Ox 95% on R/A; ko1 13:45 BP 101 / 56; Pulse 79; Resp 18; Pulse Ox 92% on R/A; ko1 14:30 BP 131 / 93; Pulse 76; Resp 18; Pulse Ox 97% on R/A; ko1 15:00 BP 132 / 95; Pulse 77; Resp 16; Pulse Ox 97% on R/A; ko1 15:45 BP 139 / 96; Pulse 73; Resp 18; Pulse Ox 97% on R/A; ko1 MDM: 07:42 Patient medically screened. ms3 09:12 Differential Diagnosis Hypovolemia vs anemia vs Rhabdo. Data reviewed: vital signs, ms3 nurses notes, lab test result(s), radiologic studies, and as a result, I will admit patient. Consideration of Admission/Observation Patient was admitted/placed on observation. Management of patient was discussed with the following: Hospitalist: Velma Alford NP working with Dr Morales. I considered the following discharge prescriptions or medication management in the emergency department Medications were administered in the Emergency Department. See MAR. Independent interpretation of the following test(s) in the Emergency Department CT Scan: My interpretation is CT head without contrast reviewed by me does not reveal ICH. Historians other than the Patient: EMS: [facility]. Care significantly affected by the following chronic conditions: Diabetes, Hypertension, Liver Disease. Counseling: I had a detailed discussion with the patient and/or guardian regarding the historical points, exam findings, and any diagnostic results supporting the discharge/admit diagnosis, lab results, radiology results, the need for further work-up and treatment in the hospital, to return to the emergency department if symptoms worsen or persist or if there are any questions or concerns that arise at home. ED course: Patient's blood pressure responded to IV fluids. Will continue IV fluids at 200 mL/h secondary to patient having rhabdo. Discussed necessity for admission with patient. He understands and agrees with plan.. 15:08 ED course: After discussion with Dr Morales patient will need transfer to [facility] for ms3 dilated right ventricle on echo. Patient will need IV prostaglandin therapy that is not available at [facility].. 15:18 ED course: Discussed case with Dr Banks and she accepts patient to [facility] tele bed..ms3 01/16 07:43 Order name: CBC with Diff; Complete Time: 08:09 ms3 01/16 07:43 Order name: CMP; Complete Time: 08:42 ms3 01/16 07:43 Order name: Urinalysis w/ reflexes; Complete Time: 10:32 ms3 01/16 07:43 Order name: CK; Complete Time: 08:42 ms3 01/16 07:43 Order name: Type And Screen; Complete Time: 10:32 ms3 01/16 07:47 Order name: PT-INR; Complete Time: 08:09 ms3 01/16 07:43 Order name: CT Head Brain wo Cont; Complete Time: 08:42 ms3 01/16 09:25 Order name: Chest Single View EDMS 01/16 09:25 Order name: Chest Single View; Complete Time: 13:49 EDMS 01/16 09:28 Order name: Echo with Doppler EDMS 01/16 13:55 Order name: CT Chest For PE Angio; Complete Time: 15:08 ms3 01/16 07:43 Order name: IV Saline Lock; Complete Time: 07:48 ms3 01/16 07:43 Order name: Labs collected and sent; Complete Time: 07:56 ms3 01/16 07:43 Order name: EKG - Nurse/Tech; Complete Time: 08:12 ms3 EC:08 Rate is 88 beats/min. Rhythm is regular. QRS [place] is Normal. ID interval is normal. ms3 Clinical impression: NSR w/ Non-specific ST/T Changes. Interpreted by me. Reviewed by me. Administered Medications: 07:56 Drug: NS 0.9% IV 1000 ml IV at 1 bolus Per protocol; 1000 mL bolus Route: IV; Rate: 1 ko1 bolus; Site: right antecubital; 08:58 Follow up: Response: No adverse reaction; Blood pressure is elevated; IV Status: ko1 Completed infusion; IV Intake: 1000ml 08:25 Drug: NS 0.9% IV 1000 ml IV at 1 bolus Per protocol; 1000 mL bolus Route: IV; Rate: 1 ko1 bolus; Site: left antecubital; 08:58 Follow up: Response: No adverse reaction; IV Status: Completed infusion; IV Intake: ko1 1000ml 09:02 Drug: NS 0.9% IV 1000 ml IV at 200 ml/hr continuous Route: IV; Rate: 200 ml/hr; Site: ko1 right antecubital; 16:11 Follow up: Response: No adverse reaction; IV Status: Completed infusion; IV Intake: cm10 1000ml 10:13 Drug: Ketorolac IVP 10 mg 10 mg IVP once Route: IVP; Site: right antecubital; ko1 10:28 Follow up: Response: No adverse reaction ko1 Disposition Summary: 01/17/24 15:07 Transfer Ordered Notes: Transfer Location: [facility] ms3 Reason: Higher level of care ms3 Condition: Stable(01/17/24 15:07) ms3 Problem: new(01/17/24 15:07) ms3 Symptoms: are unchanged(01/17/24 15:07) ms3 Accepting Physician: (01/17/24 16:12) cm10 Diagnosis - Rhabdomyolysis(01/17/24 15:07) ms3 - Hypotension, unspecified(01/17/24 15:07) ms3 - Headache(01/17/24 15:07) ms3 - Dizziness ms3 - Pulmonary hypertension, unspecified ms3 Forms: - Medication Reconciliation Form ms3 - SBAR form ms3 Critical care time excluding procedures: 09:26 Critical care time: Bedside Care: 30 minutes, Consultation: 10 minutes. Total time: 40 ms3 minutes Signatures: Dispatcher [employer] EDMS Cullen Doty em1 Chandler Arita, RN RN ll1 Joaquín Cruz DO DO ms3 Cinthia Jeff, RN RN ko1 Diana Doty, RN RN cm10 Corrections: (The following items were deleted from the chart) 07:43 07:43 CBC+H.LAB.BRZ ordered. EDMS EDMS 07:43 07:43 COMPREHENSIVE METABOLIC PANEL+C.LAB.BRZ ordered. EDMS EDMS 07:43 07:43 Urinalysis+U.LAB.BRZ ordered. EDMS EDMS 07:43 07:43 Head Brain Wo Cont+CT.RAD.BRZ ordered. EDMS EDMS 07:44 07:44 CREATINE PHOSPHOKINASE+C.LAB.BRZ ordered. EDMS EDMS 07:48 07:48 PROTIME (+INR)+COAG.LAB.BRZ ordered. EDMS EDMS 10:10 09:11 Telemetry/MedSurg (Inpatient) ms3 em1 10:10 09:11 ms3 em1 14:38 09:43 Vent Perfusion VQ Scan ordered. EDMS EDMS 15:06 09:11 Inpatient Admission ms3 ms3 15:06 09:11 Adalid Morales ms3 ms3 15:06 09:11 Stable ms3 ms3 15:06 09:11 new ms3 ms3 15:06 09:11 are unchanged ms3 ms3 15: 09:11 Standard ms3 ms3 15:06 09:11 Rhabdomyolysis ms3 ms3 15:06 09:11 Hypotension, unspecified ms3 ms3 15:06 09:11 Headache ms3 ms3 15:06 09:11 Dizziness and giddiness ms3 ms3 15:06 10:10 BR ER HOLD em1 ms3 15:06 10:10 ERHOLD- em1 ms3 16:12 15:07 Dr ms3 cm10
--- NOTE | 2024-01-17 09:11 | ER ---
Nurse's Notes [facility] Name: Dwayne Walker Jr Age: 53 yrs Sex: Male : 1970 Arrival Date: 01/17/2024 Time: 07:38 Bed 3 Private MD: Diagnosis: Rhabdomyolysis;Hypotension, unspecified;Headache;Dizziness;Pulmonary hypertension, unspecified Presentation: 01/16 07:45 Chief complaint: Patient states: Weak, dizzy for 1 week. 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 Reports ll1 black stool now. EMS states: BP 80/48, otherwise VSS. Coronavirus screen: Client denies travel out of the [place] in the last 14 days. At this time, the client does not indicate any symptoms associated with coronavirus-19. Ebola Screen: Patient denies travel to an Ebola-affected area in the 21 days before illness onset. Initial Sepsis Screen: Does the patient meet any 2 criteria? No. Patient's initial sepsis screen is negative. Does the patient have a suspected source of infection? No. Patient's initial sepsis screen is negative. Risk Assessment: Do you want to hurt yourself or someone else? Patient reports no desire to harm self or others. Onset of symptoms was January 10, 2024. 07:45 Method Of Arrival: EMS ll1 07:45 Acuity: FÉLIX 2 ll1 Triage Assessment: 07:47 General: Appears distressed, uncomfortable, Behavior is calm, cooperative, appropriate ll1 for age. General: Reports fatigue for. Pain: Complains of pain in head Quality of pain is described as aching. Neuro: Reports headache. Neuro: Reports weakness. GI: Reports dark stool. Historical: - Allergies: 07:44 No Known Drug Allergies; ll1 - PMHx: 07:44 Borderline Diabetes; HEP C; Hypertension; Pulmonary Embolism; DVT; Umbilical hernia; ll1 - PSHx: 07:44 hernia; Leg surgery; ll1 - Immunization history:: Adult Immunizations up to date. - Infectious Disease History:: Denies. - Social history:: Smoking status: Patient/guardian denies using tobacco, but has a distant history of tobacco abuse. Screenin:45 [facility] ED Fall Risk Assessment (Adult) History of falling in the last 3 months, ko1 including since admission No falls in past 3 months (0 pts) Confusion or Disorientation No (0 pts) Intoxicated or Sedated No (0 pts) Impaired Gait No (0 pts) Mobility Assist Device Used No (0 pt) Altered Elimination No (0 pt) Score/Fall Risk Level 0 - 2 = Low Risk Oriented to surroundings, Maintained a safe environment, Educated pt \T\ family on fall prevention, incl call for assistance when getting out of bed, Assessed \T\ reinforced patient's understanding of fall precautions, Provided non-skid footwear, Hourly rounding (assess needs \T\ fall precautionary measures) done, Used ambulatory aids as needed (educated on \T\ assisted with), Used gait belt as appropriate. Abuse screen: Denies threats or abuse. Denies injuries from another. Nutritional screening: No deficits noted. Tuberculosis screening: No symptoms or risk factors identified. Assessment: 07:45 General: Appears in no apparent distress. uncomfortable. Pain: Complains of pain in top ko1 of head and forehead. Neuro: No deficits noted. Cardiovascular: No deficits noted. Respiratory: No deficits noted. GI: No deficits noted. : No deficits noted. EENT: No deficits noted. Derm: No deficits noted. Musculoskeletal: No deficits noted. 10:02 Reassessment: Patient appears in no apparent distress at this time. No changes from ko1 previously documented assessment. Patient and/or family updated on plan of care and expected duration. Pain level reassessed. Patient is alert, oriented x 3, equal unlabored respirations, skin warm/dry/pink. Patient states feeling better. Vital Signs: 07:33 BP 74 / 53; Pulse 90; Resp 18; Pulse Ox 97% on R/A; ko1 07:45 Temp 97.8(TE); ll1 07:56 BP 71 / 62; Pulse 89; Resp 16; Pulse Ox 97% ; ko1 08:15 BP 84 / 53; Pulse 86; Resp 16; Pulse Ox 95% ; ko1 08:53 BP 102 / 67; Pulse 82; Resp 17; Pulse Ox 95% on R/A; ko1 09:20 BP 107 / 63; Pulse 84; Resp 15; Pulse Ox 94% on R/A; ko1 10:02 BP 97 / 58; Pulse 82; Resp 16; Pulse Ox 95% ; ko1 10:25 BP 103 / 61; Pulse 78; Resp 16; Pulse Ox 97% ; ko1 10:45 BP 111 / 74; Pulse 86; Resp 16; Pulse Ox 99% ; ko1 11:08 BP 115 / 72; Pulse 83; Resp 15; Pulse Ox 94% ; ko1 12:00 BP 103 / 64; Pulse 79; Resp 18; Pulse Ox 95% on R/A; ko1 13:45 BP 101 / 56; Pulse 79; Resp 18; Pulse Ox 92% on R/A; ko1 14:30 BP 131 / 93; Pulse 76; Resp 18; Pulse Ox 97% on R/A; ko1 15:00 BP 132 / 95; Pulse 77; Resp 16; Pulse Ox 97% on R/A; ko1 15:45 BP 139 / 96; Pulse 73; Resp 18; Pulse Ox 97% on R/A; ko1 ED Course: 07:42 Patient arrived in ED. ms3 07:42 Joaquín Cruz DO is Attending Physician. ms3 07:42 Arm band placed on Patient placed in an exam room, on a stretcher. ll1 07:45 Patient has correct armband on for positive identification. Bed in low position. Call ko1 light in reach. Side rails up X 1. Provided Education on: call light, labs. Client placed on continuous cardiac and pulse oximetry monitoring. NIBP monitoring applied. senior mobile web developer on. Door closed. Noise minimized. Lights dimmed. Warm blanket given. Pillow given. 07:45 Initial lab(s) drawn, by me, sent to lab. EKG done, by ED staff, reviewed by Joaquín Cruz DO. Inserted saline lock: 20 gauge in right antecubital area, using aseptic technique. Blood collected. 07:47 Triage completed. ll1 07:47 Cinthia Jeff, RN is Primary Nurse. ko1 07:48 CBC with Diff Sent. ko1 07:48 CMP Sent. ko1 07:50 T\T\S collected, blood band applied to patient. ko1 07:55 CK Sent. ko1 07:56 CT Head Brain wo Cont In Process Unspecified. EDMS 07:56 Type And Screen Sent. ko1 08:15 Inserted saline lock: 20 gauge in left antecubital area, using aseptic technique. ko1 09:10 Adalid Morales MD is Hospitalizing Provider. ms3 09:40 Chest Single View In Process Unspecified. EDMS 10:01 Urinalysis w/ reflexes Sent. ko1 10:02 Assisted with urinal. ko1 10:02 No provider procedures requiring assistance completed. Urine collected: clean catch ko1 specimen, clear, Amount Voided: 350mL. Patient admitted, IV remains in place. 14:21 CT Chest For PE Angio In Process Unspecified. EDMS 15:33 Report called to CARLO Reynolds at [facility]. cm10 16:11 Report given to Joe with [facility] who assumes care of patient for [facility] transport. PT A\T\Ox4, respirations even and unlabored at the time of transfer. Administered Medications: 07:56 Drug: NS 0.9% IV 1000 ml IV at 1 bolus Per protocol; 1000 mL bolus Route: IV; Rate: 1 ko1 bolus; Site: right antecubital; 08:58 Follow up: Response: No adverse reaction; Blood pressure is elevated; IV Status: ko1 Completed infusion; IV Intake: 1000ml 08:25 Drug: NS 0.9% IV 1000 ml IV at 1 bolus Per protocol; 1000 mL bolus Route: IV; Rate: 1 ko1 bolus; Site: left antecubital; 08:58 Follow up: Response: No adverse reaction; IV Status: Completed infusion; IV Intake: ko1 1000ml 09:02 Drug: NS 0.9% IV 1000 ml IV at 200 ml/hr continuous Route: IV; Rate: 200 ml/hr; Site: ko right antecubital; 16:11 Follow up: Response: No adverse reaction; IV Status: Completed infusion; IV Intake: cm10 1000ml 10:13 Drug: Ketorolac IVP 10 mg 10 mg IVP once Route: IVP; Site: right antecubital; ko1 10:28 Follow up: Response: No adverse reaction ko1 Medication: 10:02 VIS not applicable for this client. ko1 Intake: 08:58 IV: 1000ml; Total: 1000ml. ko1 08:58 IV: 1000ml; Total: 2000ml. ko1 16:11 IV: 1000ml; Total: 3000ml. cm10 Outcome: 09:11 Decision to Hospitalize by Provider. ms3 10:02 Admitted to Med/surg ko1 10:02 Condition: improved 10:02 Instructed on the need for admit, 15:07 ER care complete, transfer ordered by . ms3 16:12 Transferred by ground [facility] [place] . to [facility], [facility], cm10 16:12 Condition: good 16:12 Instructed on the need for transfer, 16:12 Patient left the ED. cm10 Signatures: Dispatcher [employer] Chandler Mathis, RN RN ll1 Joaquín Cruz DO DO ms3 Cinthia Jeff RN RN ko1 Diana Doty RN RN cm10
[2024-01-17] MEDS ORDERED: KETOROLAC 30 MG/ML INJ ONE (10:12)
[2024-01-17 10:17] LABS: Specific Gravity 1.007 (1.005-1.030); Sqamous Epithelial None Seen /HPF (None Seen); Urine Bacteria None Seen /HPF (<20); Urine Bilirubin NEGATIVE (Negative); Urine Blood 2+ (Negative); Urine Clarity Turbid (Clear); Urine Color Light-Yellow (Yellow); Urine Culture Reflex Order NOT NEEDED; Urine Glucose 3+ (Negative); Urine Ketones NEGATIVE (Negative); Urine Microscopic Reflex YN ORDER UMIC; Urine Nitrite NEGATIVE (Negative); Urine Protein NEGATIVE (Negative); Urine RBC <5 /HPF (None Seen); Urine Urobilinogen Normal (Normal); Urine WBC <5 /HPF (<5); Urine pH 6.5 (5.0-7.0)
--- NOTE | 2024-01-17 12:32 | RAD REPORT ---
EXAM DESCRIPTION: RADChest Single View01/17/2024 9:38 am CLINICAL HISTORY: poss sepsis COMPARISON: Chest Single View dated 08/02/2023; Chest Single View dated 07/13/2023; Chest Single Vie w dated 07/07/2023; Chest Single View dated 12/22/2022 TECHNIQUE: Portable AP view of the chest. FINDINGS: The lungs are clear. No pneumothorax or effusion. The cardiomediastinal contours are unre markable. IMPRESSION: No acute cardiopulmonary process.
--- NOTE | 2024-01-17 13:52 | ECHO ---
HEIGHT: ft in WEIGHT: lb oz DATE OF STUDY: 01/17/[address]: Adalid Morales MD 2-DIMENSIONAL: YES M.MODE: YES DOPPLER: YES COLOR FLOW: YES TDS: PORTABLE: YES DEFINITY: BUBBLE STUDY: DIAGNOSIS: HYPOTENSION/ HISTORY OF PULMONARY EMBOLISM CARDIAC HISTORY: CATHERIZATION: SURGERY: PROSTHETIC VALVE: PACEMAKER: MEASUREMENTS (cm) DIASTOLIC (NORMALS) SYSTOLIC (NORMALS) IVSd 1.0 (0.6-1.2) LA Diam 3.7 (1.9-4.0) LVEF 60-65% LVIDd 5.1 (3.5-5.7) LVIDs 3.7 (2.0-3.5) %FS 28% LVPWd 1.1 (0.6-1.2) Ao Diam 3.0 (2.0-3.7) 2 DIMENSIONAL ASSESSMENT: RIGHT ATRIUM: MILD DILATED LEFT ATRIUM: NORMAL RIGHT VENTRICLE: SEVERE DILATED LEFT VENTRICLE: NORMAL TRICUSPID VALVE: MILD TRICUSPID REGURGITATION MITRAL VALVE: NORMAL PULMONIC VALVE: NORMAL AORTIC VALVE: NORMAL PERICARDIAL EFFUSION: NONE AORTIC ROOT: NORMAL LEFT VENTRICULAR WALL MOTION: NORMAL DOPPLER/COLOR FLOW: NORMAL COMMENTS: 1. NORMAL LEFT VENTRICULAR SYSTOLIC FUNCTION, EJECTION FRACTION 60-65%, NORMAL WALL MOTION 2. SEVERE DILATED RIGHT VENTRICLE WITH MILD REDUCED RIGHT VENTRICULAR FUNCTION 3. MILD TRICUSPID REGURGITATION 4. RIGHT VENTRICULAR SYSTOLIC PRESSURE 30-35 mmHg TECHNOLOGIST: JORDYN EPPS
--- NOTE | 2024-01-17 14:10 | EKG ---
Test Date: 2024-01-17 Test Time: 08:08:44 Shearer Helper: MEGAN MEASUREMENT RESULTS: Intervals: Rate: 88 DC: 160 QRSD: 94 QT: 400 QTc: 484 [place]: P: 28 DC: 160 QRS: 7 T: 36 INTERPRETIVE STATEMENTS: Normal sinus rhythm Prolonged QT Abnormal ECG Compared to ECG 08/02/2023 15:58:27 Prolonged QT interval now present Electronically Signed On 01-17-24 14:09:26 CDT by Andre Owen
--- NOTE | 2024-01-17 14:47 | RAD REPORT ---
EXAM DESCRIPTION: CT - Chest For Pe Angio - 01/17/2024 2:20 pm CLINICAL HISTORY: Shortness of breath. Hypotension COMPARISON: 2022 TECHNIQUE: Dynamically enhanced axial 3 mm thick images of the chest were obtained during administra tion of 100 mL Isovue 370 IV contrast. Coronal and oblique reconstruction images were generated and r eviewed. Exam utilizes a protocol for optimal evaluation of pulmonary arterial tree. Maximum intensity projections 3D imaging was utilized All CT scans are performed using dose optimization technique as appropriate and may include automated exposure control or mA/KV adjustment according to patient size. FINDINGS: A pulmonary embolus is not seen. A thoracic aortic aneurysm is not noted. A pleural effusion is not seen. A pericardial effusion is not seen. A lung consolidation is not present. Fatty liver IMPRESSION: Negative for a pulmonary embolism.
[2024-01-17 16:28] VITALS: TEMP 97.8
[2024-01-17 16:50] VITALS: BP 139/96; O2SAT 97
--- NOTE | 2024-01-18 15:39 | P.CNS ---
Date of Consult: 01/17/24
--- NOTE | 2024-01-20 18:49 | P.CNS ---
Date of Consult: 01/17/24 Reason for Consult: Admission Chief Complaint: Rhabdomyolysis History of Present Illness: Dwayne Walker is a 53 year old male with Pmhx PE, hep C, diabetes, hypertension, hyperlipidemia who presents to the ED via EMS with chief complaint of headache that began 30 minutes prior to arrival. Dwayne reports dizziness and states he had black stool with generalized weakness for a total of 1 week. He also [place] the beach [place] beer with water over the weekend. Initial vital BP 74 / 53; Pulse 90; Resp 18; Pulse Ox 97% on R/A Laboratory evaluation BUN/creatinine 20/1.32, serum glucose 128, AST 169, ALT 108, CK 3579, CBC unremarkable, UA negative for infectious disease Head CT reports "No intracranial hemorrhage, mass, or edema. Midline structures are unremarkable. Normal ventricular caliber for age. Devries-white matter differentiation is preserved, without evidence of acute infarct. No abnormal extra-axial fluid collections. Mild periventricular and deep white matter hypodensities, nonspecific, but suggestive of chronic small vessel ischemic changes. Mastoid air cells and visualized portions of the paranasal sinuses are clear. No acute bony findings.IMPRESSION: No evidence of an acute intracranial process." Chest Xray "The lungs are clear. No pneumothorax or effusion. The cardiomediastinal contours are unremarkable. IMPRESSION: No acute cardiopulmonary process." Due to the patient's history of a PE in June, and lack of follow up. A STAT ECHO was required for further evaluation of the RV function to determine if our facility will be able to provide appropriate care. [facility] reports "1. NORMAL LEFT VENTRICULAR SYSTOLIC FUNCTION, EJECTION FRACTION 60-65%, NORMAL WALL MOTION. 2. SEVERE DILATED RIGHT VENTRICLE WITH MILD REDUCED RIGHT VENTRICULAR FUNCTION. 3. MILD TRICUSPID REGURGITATION. 4. RIGHT VENTRICULAR SYSTOLIC PRESSURE 30-35 mmHg." To look for resolution of the Pulmonary embolis a CTA chest was ordered. CTA chest A pulmonary embolus is not seen. A thoracic aortic aneurysm is not noted. A pleural effusion is not seen. A pericardial effusion is not seen. A lung consolidation is not present. Fatty liver. IMPRESSION: Negative for a pulmonary embolism." Will need prostaglandin which is not available at our facility. Please transfer to appropriate facility for higher level of care. Allergies No Known Drug Allergies Allergy (Verified 02/02/23 08:15) Unknown Home Medications: Atorvastatin Calcium 20 mg PO DAILY 01/25/22 Lisinopril [Zestril] 1 tab PO DAILY 01/25/22 Omeprazole [Prilosec] 40 mg PO DAILY 01/25/22 Gabapentin 800 mg PO TID 02/02/23 Glecaprevir/Pibrentasvir [Mavyret 100-40 mg Tablet] 1 each PO DAILY 02/02/23 hydrOXYzine HCL [Atarax*] 25 mg PO DAILY 02/02/23 Amox/Clavulanate [Augmentin 875-125 Tab*] 875 mg PO BID 5 Days #10 tab 07/15/23 Apixaban [Eliquis] 5 mg PO BID 30 Days #60 tab 07/15/23 Benzonatate [Tessalon Perle*] 100 mg PO Q6H PRN #20 cap 07/15/23 Hydrocodone/Acetaminophen [Hydrocodon-Acetaminoph 7.5-325] 1 tab PO BID PRN 5 Days #10 tab 07/15/23 - Past Medical/Surgical History Diabetic: No -: Hypertension -: GERD -: Chronic pain secondary to fall injury -: Scoliosis -: Pulmonary embolism/DVT, January 2018 -: Alcohol abuse -: Tobacco abuse -: fell through roof, multiple fractures -: bilateral hip repair -: bilateral leg feet fracture repairs -: lower spine fractures 13 areas Psychosocial/ Personal History: Patient is single. 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 - Family History Mother Medical History: Hypertension Father Medical History: Heart disease - Social History Smoking Status: Former smoker Alcohol use: Yes CD- Drugs: Yes Caffeine use: Yes Review of Systems Neurological: Other (headache, dizziness) Physical Examination Temp Pulse Resp BP Pulse Ox 97.8 F 73 18 139/96 H 01/17/24 16:18 01/17/24 16:39 01/17/24 16:39 01/17/24 16:39 Conclusions/Impression: Rhabdomyolysis will require multiple liters of Normal saline IV fluids, 3 L normal saline given in the ED. Severe dilated right ventricle-likely damage from the recent pulmonary embolus, he has a history of pulmonary embolisms Suspected pulmonary hypertension prostaglandin that is not available at our facility-will need transfer to appropriate facility for prostaglandin intervention.
== END 2024-01-17 16:12 | disposition short-term general hospital (02) ==
LOC: ER 07:38
DX: M62.82 Rhabdomyolysis (principal); I95.9 Hypotension, unspecified; R42 Dizziness and giddiness; I27.20 Pulmonary hypertension, unspecified; Z86.711 Personal history of pulmonary embolism; Z72.0 Tobacco use
CPT/HCPCS: 96361; 93005; 93306; 85025; 81001; 36415; 86900; 86850; 82550; 85610; 86901; 80053; 70450; 71275; 71045; 96374; 99285; Q9967; J7030 ×3

== ENCOUNTER 2024-02-20 17:25 | Inpatient (IN) | payer OTHER ==
[2024-02-20] MEDS ORDERED: ONDANSETRON 4 MG/2 ML VIAL ONE (17:47)
[2024-02-20] MEDS ORDERED: NA CHLORIDE 0.9% 1,000 ML ONE (17:47)
[2024-02-20] MEDS ORDERED: FAMOTIDINE 20 MG/2 ML VIAL IV ONE ×2 (17:47→21:29)
[2024-02-20 17:53] LABS: Absolute Basophils 0.1 K/uL (0-0.5); Absolute Eosinophils 0.2 K/uL (0-0.5); Absolute Lymphocytes (CBC) 1.8 K/uL (0.7-4.9); Absolute Monocytes 0.8 K/uL (0.1-1.3); Absolute Neutrophil 6.4 K/uL (1.8-8.0); Basophils % 0.9 % (0-1.3); Eosinophils % 2.3 % (0-4.4); Hematocrit 44.4 % (39.6-49.0); Hemoglobin 14.8 g/dL (13.6-17.9); Lymphocytes % 19.6 % (15.3-44.8); MCH 31.8 pg (27.0-35.0); MCHC 33.5 g/dL (32.0-36.0); MPV 6.9 fL (7.6-11.3); Monocytes % 8.3 % (3.3-12.3); Neutrophils % 68.9 % (41.7-73.7); Platelets 281 thou/uL (152-406); RBC Red Blood Cell Count 4.67 M/uL (4.33-5.43); Red Cell Distribution Width 13.4 % (12.1-15.2)
[2024-02-20 18:09] LABS: Albumin 3.4 g/dL (3.4-5.0); Albumin/Globulin Ratio 0.8 (1.1-1.8); Anion Gap 10.4 mEq/L (5.0-15.0); Bilirubin Total 0.9 mg/dL (0.2-1.0); Globulin 4.5 g/dL (2.3-3.5); Potassium 3.4 mEq/L (3.5-5.1); Protein, Total 7.9 g/dL (6.4-8.2)
--- NOTE | 2024-02-20 18:49 | RAD REPORT ---
EXAM DESCRIPTION: CTAbdomen Pelvis W Contrast - 02/20/2024 6:42 pm CLINICAL HISTORY: Abdominal pain. ABD PAIN COMPARISON: Abdomen Pelvis W Contrast dated 10/25/2023; Abdomen Pelvis W Contrast dated 01/25/2022; Abdomen Pelvis W Contrast dated 05/02/2020; Abdomen Pelvis W Contrast dated 09/11/2019 TECHNIQUE: Biphasic CT imaging of the abdomen and pelvis was performed with 100 ml non-ionic IV cont rast. All CT scans are performed using dose optimization technique as appropriate and may include automated exposure control or mA/KV adjustment according to patient size. FINDINGS: The lung bases are clear. The liver demonstrates diffuse fatty infiltration. Spleen, pancreas, adrenal glands and kidneys are w ithin normal limits. Several dilated small bowel loops are present in the right lower abdomen. This may represent partial mechanical obstruction. Diverticulosis coli is seen affecting the sigmoid colon. The appendix is norm al. No evidence of significant lymphadenopathy. No suspicious bony findings. IMPRESSION: Several dilated small bowel loops are present in the right lower quadrant of the abdomen which appear fecalized measure up to 3.5 cm. This is most compatible with partial mechanical obstruc tion. Fatty liver. No free air or abscess.
[2024-02-20 19:15] LABS: Specific Gravity 1.024 (1.005-1.030); Urine Bilirubin NEGATIVE (Negative); Urine Blood Negative (Negative); Urine Clarity Clear (Clear); Urine Color Light-Yellow (Yellow); Urine Glucose 4+ (Over) (Negative); Urine Ketones 1+ (Negative); Urine Microscopic Reflex YN NO UMIC; Urine Nitrite NEGATIVE (Negative); Urine Protein NEGATIVE (Negative); Urine Urobilinogen Normal (Normal)
--- NOTE | 2024-02-20 19:20 | EDPHYS ---
Physician Documentation [facility] Name: Dwayne Walker Jr Age: 53 yrs Sex: Male : 1970 Arrival Date: 02/20/2024 Time: 17:25 Bed 20 Private MD: ED Physician Joaquín Cruz HPI: 02/19 22:02 This 53 yrs old Male presents to ER via EMS with complaints of Abdominal Pain. ms3 22:02 53-year-old male with past medical history of diabetes, DVT, hepatitis C, hypertension, ms3 pulmonary edema, umbilical hernia presents to the emergency department for generalized abdominal pain. Patient states the pain is similar to when he had a bowel obstruction in the past. Patient states he had 2 bowel movements today and has passed gas. Historical: - Allergies: 17:29 No Known Allergies; mb9 - Home Meds: 17:29 atorvastatin 20 mg Oral tablet [Active]; Eliquis 5 mg Oral tablet [Active]; gabapentin mb9 800 mg Oral tablet [Active]; hydrocodone-acetaminophen 7.5-325 mg Oral tablet [Active]; hydroxyzine HCl 25 mg Oral tablet [Active]; lisinopril 40 mg Oral tablet [Active]; Mavyret 100-40 mg Oral tablet [Active]; omeprazole 40 mg Oral capsule [Active]; trulicity [Active]; - PMHx: 17:29 Borderline Diabetes; DVT; HEP C; Hypertension; Pulmonary Embolism; Umbilical hernia; mb9 - PSHx: 17:29 hernia; Leg surgery; mb9 - Immunization history:: Adult Immunizations up to date. - Infectious Disease History:: Denies. - Social history:: Smoking status: Patient denies any tobacco usage or history of. ROS: 22:02 Constitutional: Negative for fever, and chills. Neck: Negative for injury, pain, and ms3 swelling, Cardiovascular: Negative for chest pain, and palpitations. Respiratory: Negative for shortness of breath, cough, wheezing, and pleuritic chest pain, 22:02 MS/Extremity: Negative for injury and deformity, Skin: Negative for injury, rash, and discoloration, 22:02 Abdomen/GI: Positive for abdominal pain, Exam: 22:02 Constitutional: This is a well developed, well nourished patient who is awake, alert, ms3 and in no acute distress. Head/Face: Normocephalic, atraumatic. Chest/axilla: Normal chest wall appearance and motion. Nontender with no deformity. Cardiovascular: Regular rate and rhythm with a normal S1 and S2. No gallops, murmurs, or rubs. Normal PMI, no JVD. No pulse deficits. Respiratory: Lungs have equal breath sounds bilaterally, clear to auscultation and percussion. No rales, rhonchi or wheezes noted. No increased work of breathing, no retractions or nasal flaring. 22:02 Abdomen/GI: Inspection: abdomen appears normal, Bowel sounds: normal, Palpation: moderate abdominal tenderness, in all quadrants, Vital Signs: 17:27 BP 146 / 94; Pulse 71; Resp 18; Temp 98; Pulse Ox 100% ; Weight 97.07 kg; Height 5 ft. mb9 7 in. ; Pain 10/10; 18:50 BP 142 / 77; Pulse 88; Resp 18; Pulse Ox 100% on R/A; mb9 21:10 BP 120 / 82; Pulse 68; Pulse Ox 95% on R/A; Pain 4/10; tm6 17:27 Body Mass Index 33.52 (97.07 kg, 170.18 cm) mb9 17:27 Pain Scale: Adult mb9 21:10 Pain Scale: Adult tm6 MDM: 17:27 Patient medically screened. ms3 19:19 ED course: Discussed case with Dr Doty and he will consult on patient. Discussed ms3 case with Dr Stokes and he accepts patient.. 22:02 Differential diagnosis: appendicitis, bowel obstruction, diverticulitis. Data reviewed: ms3 vital signs, nurses notes, lab test result(s), radiologic studies, and as a result, I will admit patient. Consideration of Admission/Observation Patient was admitted/placed on observation. Management of patient was discussed with the following: Hospitalist: Dr Stokes. Seed Sales Manager: Dr Doty. I considered the following discharge prescriptions or medication management in the emergency department Medications were administered in the Emergency Department. See MAR. Historians other than the Patient: EMS: [facility]. Care significantly affected by the following chronic conditions: Diabetes, Hypertension. Counseling: I had a detailed discussion with the patient and/or guardian regarding the historical points, exam findings, and any diagnostic results supporting the discharge/admit diagnosis, lab results, radiology results, the need for further work-up and treatment in the hospital. 02/19 17:28 Order name: CBC with Diff; Complete Time: 19:07 ms3 02/19 17:28 Order name: CMP; Complete Time: 19:07 ms3 02/19 17:28 Order name: Lipase; Complete Time: 19:07 ms3 02/19 17:28 Order name: Urinalysis w/ reflexes; Complete Time: 19:16 ms3 02/19 20:14 Order name: CBC with Automated Diff EDMS 02/19 20:14 Order name: CBC with Automated Diff EDMS 02/19 20:14 Order name: Comprehensive Metabolic Panel EDMS 02/19 20:14 Order name: Comprehensive Metabolic Panel EDMS 02/19 17:28 Order name: CT Abd/Pelvis - IV Contrast Only; Complete Time: 19:07 ms3 02/19 20:14 Order name: CONS Physician Consult EDMS 02/19 17:28 Order name: IV Saline Lock; Complete Time: 17:41 ms3 02/19 17:28 Order name: Labs collected and sent; Complete Time: 17:41 ms3 Administered Medications: 17:53 Drug: NS 0.9% IV 1000 ml IV at 1 bolus Per protocol; 1000 mL bolus Route: IV; Rate: 1 mb9 bolus; Site: right antecubital; 17:53 Drug: Famotidine IVP 20 mg IVP once; dilute with 10 mL 0.9% NaCl; give over 2 minutes mb9 Route: IVP; Site: right antecubital; 17:53 Drug: Ondansetron IVP 4 mg IVP once; over 2 minutes Route: IVP; Site: right antecubital;mb9 20:06 Drug: morphine IVP or IV 4 mg IVP once over 4 mins Route: IVP; Infused Over: 4 mins; tm6 Site: right antecubital; Disposition Summary: 02/20/24 19:19 Hospitalization Ordered Notes: Hospitalization Status: Inpatient Admission ms3 Provider: Hansel Stokes ms3 Location: Telemetry/MedSurg (Inpatient) ms3 Condition: Stable ms3 Problem: new ms3 Symptoms: are unchanged ms3 Bed/Room Type: [place] ms3 Room Assignment: 211(02/20/24 20:29) Diagnosis - Small Bowel Obstruction ms3 - Abdominal pain, unspecified ms3 Forms: - Medication Reconciliation Form ms3 - SBAR form ms3 - Leadership Thank You Letter ms3 Signatures: Dispatcher [employer] EDMS Hilda Arita, RN RN Joaqíun Richardson, DO ms3 Maryana, Jaleesa Sandoval RN RN mb9 Willy Cantrell RN RN tm6 Corrections: (The following items were deleted from the chart) 17: 17:29 Abdomen Pelvis W Con+CT.RAD.BRZ ordered. EDMS EDMS 20:29 19:19 ms3 radha
--- NOTE | 2024-02-20 19:20 | ER ---
Nurse's Notes [facility] Name: Dwayne Walker Jr Age: 53 yrs Sex: Male : 1970 Arrival Date: 02/20/2024 Time: 17:25 Bed 20 Private MD: Diagnosis: Small Bowel Obstruction;Abdominal pain, unspecified Presentation: 02/19 17:27 Chief complaint: EMS states: "toned out for abdominal pain and back pain that started mb9 at 10am this morning. Pt states this feels like last time he had a blockage.". Coronavirus screen: Vaccine status: Patient reports receiving the 2nd dose of the covid vaccine. Ebola Screen: No symptoms or risks identified at this time. Initial Sepsis Screen: Does the patient meet any 2 criteria? No. Patient's initial sepsis screen is negative. Does the patient have a suspected source of infection? No. Patient's initial sepsis screen is negative. Risk Assessment: Do you want to hurt yourself or someone else? Patient reports no desire to harm self or others. Onset of symptoms was February 20, 2024. 17:27 Method Of Arrival: EMS: [facility] mb9 17:27 Acuity: FÉLIX 3 mb9 Triage Assessment: 17:30 General: Appears uncomfortable, Behavior is anxious. Pain: Complains of pain in abdomen mb9 Pain radiates to back Pain currently is 10 out of 10 on a pain scale. Quality of pain is described as throbbing. EENT: No signs and/or symptoms were reported regarding the EENT system. Neuro: Veronica Agitation-Sedation Scale (RASS): 0 - Alert and Calm Level of Consciousness is awake, alert, obeys commands, Oriented to person, place, time, situation, Appropriate for age. Cardiovascular: Patient's skin is warm and dry. Respiratory: Airway is patent Respiratory effort is even, unlabored, Respiratory pattern is regular, symmetrical, Breath sounds are clear bilaterally. GI: Abdomen is round non-distended, Bowel sounds present X 4 quads. Abd is soft Abdomen is tender to palpation in right upper quadrant and right lower quadrant Reports nausea. : No signs and/or symptoms were reported regarding the genitourinary system. Derm: Skin is pink, warm \\T\\ dry. Musculoskeletal: Range of motion: intact in all extremities. Historical: - Allergies: 17:29 No Known Allergies; mb9 - Home Meds: 17:29 atorvastatin 20 mg Oral tablet [Active]; Eliquis 5 mg Oral tablet [Active]; gabapentin mb9 800 mg Oral tablet [Active]; hydrocodone-acetaminophen 7.5-325 mg Oral tablet [Active]; hydroxyzine HCl 25 mg Oral tablet [Active]; lisinopril 40 mg Oral tablet [Active]; Mavyret 100-40 mg Oral tablet [Active]; omeprazole 40 mg Oral capsule [Active]; trulicity [Active]; - PMHx: 17:29 Borderline Diabetes; DVT; HEP C; Hypertension; Pulmonary Embolism; Umbilical hernia; mb9 - PSHx: 17:29 hernia; Leg surgery; mb9 - Immunization history:: Adult Immunizations up to date. - Infectious Disease History:: Denies. - Social history:: Smoking status: Patient denies any tobacco usage or history of. Screenin:31 [facility] ED Fall Risk Assessment (Adult) History of falling in the last 3 months, mb9 including since admission No falls in past 3 months (0 pts) Confusion or Disorientation No (0 pts) Intoxicated or Sedated No (0 pts) Impaired Gait No (0 pts) Mobility Assist Device Used No (0 pt) Altered Elimination No (0 pt) Score/Fall Risk Level 0 - 2 = Low Risk Oriented to surroundings, Maintained a safe environment, Educated pt \\T\\ family on fall prevention, incl call for assistance when getting out of bed. Abuse screen: Denies threats or abuse. Nutritional screening: No deficits noted. Tuberculosis screening: No symptoms or risk factors identified. Assessment: 17:53 Reassessment: see triage assessment. mb9 18:50 Reassessment: No changes from previously documented assessment. Patient and/or family mb9 updated on plan of care and expected duration. Pain level reassessed. Patient is alert, oriented x 3, equal unlabored respirations, skin warm/dry/pink. 21:10 Reassessment: report faxed, confirmed by Marcia. tm6 Vital Signs: 17:27 BP 146 / 94; Pulse 71; Resp 18; Temp 98; Pulse Ox 100% ; Weight 97.07 kg; Height 5 ft. mb9 7 in. ; Pain 10/10; 18:50 BP 142 / 77; Pulse 88; Resp 18; Pulse Ox 100% on R/A; mb9 21:10 BP 120 / 82; Pulse 68; Pulse Ox 95% on R/A; Pain 4/10; tm6 17:27 Body Mass Index 33.52 (97.07 kg, 170.18 cm) mb9 17:27 Pain Scale: Adult mb9 21:10 Pain Scale: Adult tm6 ED Course: 17:27 Patient arrived in ED. mb9 17:27 Joaquín Cruz DO is Attending Physician. ms3 17:27 Arm band placed on. mb9 17:29 Triage completed. mb9 17:32 Jaleesa Mijares, CARLO is Primary Nurse. mb9 17:32 Placed in gown. Bed in low position. Call light in reach. Side rails up X 1. Provided mb9 Education on: press call light if needing anything. Client placed on continuous cardiac and pulse oximetry monitoring. NIBP monitoring applied. 17:32 No provider procedures requiring assistance completed. mb9 17:41 Initial lab(s) drawn, by de, sent to lab. Inserted saline lock: 18 gauge in right mb9 antecubital area, using aseptic technique. Blood collected. 18:44 CT Abd/Pelvis - IV Contrast Only In Process Unspecified. EDMS 19:04 Urinalysis w/ reflexes Sent. mb9 19:18 Hansel Stokes MD is Hospitalizing Provider. ms3 21:36 Patient admitted, IV remains in place. tm6 Administered Medications: 17:53 Drug: NS 0.9% IV 1000 ml IV at 1 bolus Per protocol; 1000 mL bolus Route: IV; Rate: 1 mb9 bolus; Site: right antecubital; 17:53 Drug: Famotidine IVP 20 mg IVP once; dilute with 10 mL 0.9% NaCl; give over 2 minutes mb9 Route: IVP; Site: right antecubital; 17:53 Drug: Ondansetron IVP 4 mg IVP once; over 2 minutes Route: IVP; Site: right antecubital;mb9 20:06 Drug: morphine IVP or IV 4 mg IVP once over 4 mins Route: IVP; Infused Over: 4 mins; tm6 Site: right antecubital; Medication: 17:54 VIS not applicable for this client. mb9 Outcome: 19:19 Decision to Hospitalize by Provider. ms3 21:35 Admitted to Med/surg accompanied by tech, via wheelchair, room 211, with chart, tm6 21:35 Condition: stable 21:35 Instructed on the need for admit, 21:36 Patient left the ED. tm6 Signatures: Dispatcher [employer] EDMS Joaquín Cruz DO DO ms3 Maryana, Jaleesa Sandoval, RN RN mb9 Willy Cantrell RN RN tm6
[2024-02-20] MEDS ORDERED: MORPHINE 4 MG/ML SYR ONE (19:34)
--- NOTE | 2024-02-20 20:06 | P.HP ---
Certification for Inpatient Patient admitted to: Inpatient With expected LOS: >2 Midnights Practitioner: I am a practitioner with admitting privileges, knowledge of patient current condition, hospital course, and medical plan of care. Services: Services provided to patient in accordance with Admission requirements found in Title 42 Section 412.3 of the Code of Federal Regulations Patient History Date of Service: 02/20/24 Reason for admission: Abdominal pain History of Present Illness: 53-year-old male with hypertension/DM/multiple DVTs and recent pulmonary embolism on Xarelto, previous umbilical hernia status post repair 1 year ago, recent partial small bowel obstruction managed conservatively few months ago Presented for new abdominal pain today. Pain is in the epigastric area radiating to the all of the rest of the abdomen. Admits to crampy pattern in nature. Admits to nausea but no vomiting. Denies any diarrhea. Admits to no bowel movement since the last 1 day. On arrival in the ED workup with CT shows everal dilated small bowel loops are present in the right lower quadrant of the abdomen which appear fecalized measure up to 3.5 cm. This is most compatible with partial mechanical obstruction. Patient has been admitted for partial small bowel obstruction. Allergies No Known Drug Allergies Allergy (Verified 02/02/23 08:15) Unknown Home Medications: Atorvastatin Calcium 20 mg PO DAILY 01/25/22 Lisinopril [Zestril] 1 tab PO DAILY 01/25/22 Omeprazole [Prilosec] 40 mg PO DAILY 01/25/22 Gabapentin 800 mg PO TID 02/02/23 Glecaprevir/Pibrentasvir [Mavyret 100-40 mg Tablet] 1 each PO DAILY 02/02/23 hydrOXYzine HCL [Atarax*] 25 mg PO DAILY 02/02/23 Amox/Clavulanate [Augmentin 875-125 Tab*] 875 mg PO BID 5 Days #10 tab 07/15/23 Apixaban [Eliquis] 5 mg PO BID 30 Days #60 tab 07/15/23 Benzonatate [Tessalon Perle*] 100 mg PO Q6H PRN #20 cap 07/15/23 Hydrocodone/Acetaminophen [Hydrocodon-Acetaminoph 7.5-325] 1 tab PO BID PRN 5 Days #10 tab 07/15/23 - Past Medical/Surgical History Diabetic: No -: Hypertension -: GERD -: Chronic pain secondary to fall injury -: Scoliosis -: Pulmonary embolism/DVT, January 2018 -: Alcohol abuse -: Tobacco abuse -: fell through roof, multiple fractures -: bilateral hip repair -: bilateral leg feet fracture repairs -: lower spine fractures 13 areas Psychosocial/ Personal History: Patient is single. 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 - Family History Mother -: Hypertension Father -: Heart disease - Social History Smoking Status: Never smoker Alcohol use: Yes CD- Drugs: Yes Caffeine use: Yes Place of Residence: Home Review of Systems Gastrointestinal: Nausea, Abdominal Pain, Distention Physical Examination - Physical Exam General: Alert, In no apparent distress, Oriented x3 HEENT: Atraumatic, Normocephalic, PERRLA Neck: Supple, 2+ carotid pulse no bruit, JVD not distended Respiratory: Clear to auscultation bilaterally, Normal air movement Cardiovascular: Normal pulses, Regular rate/rhythm, Normal S1 S2 Gastrointestinal: No ascites, Hyperactive, Distended, Tenderness Musculoskeletal: No clubbing, No swelling Integumentary: No significant lesion, No tenderness/swelling Neurological: Normal speech, Normal strength at 5/5 x4 extr, Sensation intact, Cranial nerves 3-12 intact External genitalia: No edema, No masses - Studies Laboratory Data (last 24 hrs) 02/20/24 02/20/24 17:40 17:40 WBC 9.20 Hgb 14.8 Hct 44.4 Plt Count 281 Sodium 134 L Potassium 3.4 L BUN 9 Creatinine 0.79 Glucose 119 H Total Bilirubin 0.9 AST 22 ALT 29 Alkaline Phosphatase 91 Lipase 18 Assessment and Plan - Problems (Diagnosis) (1) SBO (small bowel obstruction) Current Visit: Yes Status: Acute (2) History of DVT (deep vein thrombosis) Current Visit: No Status: Acute (3) History of pulmonary embolism Current Visit: No Status: Acute (4) Hypertension Onset Date: 05/15/18 Current Visit: No Status: Acute - Plan Impression Partial small bowel obstruction Hypertension DM History of PE on chronic anticoagulation Plan Admit to inpatient N.p.o. Surgical consult for possible intervention with 8 Kovacic Gentle IV fluid IV hydralazine as needed Pain control Replete potassium Insulin sliding scale with Accu-Cheks Hold Xarelto Lovenox therapeutic dose for now Full code Total time spent in evaluation greater than 70 - Advance Directives Does patient have a Living Will: No Does patient have a Durable POA for Healthcare: No Physician Review: Patient Assessed, Agree with Above Assessment and Plan (70) Critical Care: Yes
[2024-02-20] MEDS ORDERED: ALBUTEROL 2.5 MG/3 ML NEB SOL NEB PRN (20:08)
[2024-02-20] MEDS ORDERED: HYDRALAZINE HCL 20 MG/ML VIAL IV PRN (20:10)
[2024-02-20] MEDS: FAMOTIDINE 20 MG/2 ML VIAL IV SCH ×3 (21:00)
[2024-02-20] MEDS: HYDROMORPHONE HCL 1 MG/ML INJ IV ONE (22:39)
[2024-02-20] MEDS: D5.45NS W/KCL 20MEQ 1,000 ML IV SCH (22:40)
[2024-02-20] MEDS: ENOXAPARIN 60 MG/0.6 ML SQ SCH (23:20)
[2024-02-21] MEDS: INSULIN REGULAR (HUMAN) 100 UNIT/ML SQ SCH
[2024-02-21] MEDS ORDERED: ONDANSETRON 4 MG/2 ML VIAL IV PRN (02:00)
[2024-02-21] MEDS: MORPHINE 4 MG/ML SYR IV PRN (02:48)
[2024-02-21 06:51] LABS: Absolute Basophils 0.1 K/uL (0-0.5); Absolute Eosinophils 0.2 K/uL (0-0.5); Absolute Lymphocytes (CBC) 1.6 K/uL (0.7-4.9); Absolute Monocytes 0.7 K/uL (0.1-1.3); Absolute Neutrophil 5.1 K/uL (1.8-8.0); Basophils % 0.7 % (0-1.3); Eosinophils % 2.7 % (0-4.4); Hemoglobin 13.9 g/dL (13.6-17.9); Lymphocytes % 20.6 % (15.3-44.8); MCH 32.4 pg (27.0-35.0); MCV 95.2 fL (80-100); MPV 6.9 fL (7.6-11.3); Monocytes % 8.9 % (3.3-12.3); Neutrophils % 67.1 % (41.7-73.7); Nucleated Red Blood Cells % 0.1 % (0-0); Platelets 264 thou/uL (152-406); RBC Red Blood Cell Count 4.31 M/uL (4.33-5.43); Red Cell Distribution Width 13.3 % (12.1-15.2)
[2024-02-21 07:08] LABS: Albumin 3.1 g/dL (3.4-5.0); Albumin/Globulin Ratio 0.8 (1.1-1.8); Anion Gap 5.7 mEq/L (5.0-15.0); Bilirubin Total 0.7 mg/dL (0.2-1.0); Globulin 4.1 g/dL (2.3-3.5); Potassium 3.7 mEq/L (3.5-5.1); Protein, Total 7.2 g/dL (6.4-8.2)
--- NOTE | 2024-02-21 08:06 | P.PN ---
Subjective Date of Service: 02/21/24 Chief Complaint: Abdominal pain Subjective: No new changes (no flatus, continued crampy abd pain) <Jany Mcclain - Last Filed: 02/21/24 08:04> Date of Service: 02/21/24 <Smith Guzman - Last Filed: 02/21/24 10:20> Review of Systems 10-point ROS is otherwise unremarkable General: As per HPI Gastrointestinal: As per HPI Musculoskeletal: As per HPI <Jany Mcclain - Last Filed: 02/21/24 08:04> Physical Examination - Vital Signs Temperature: 97.6 F Blood Pressure: 137/91 Pulse: 65 Respirations: 18 Pulse Ox (%): 95 - Physical Exam General: Alert, In no apparent distress, Oriented x3 HEENT: Atraumatic, Normocephalic Neck: Supple Respiratory: Normal air movement Cardiovascular: Normal pulses, Regular rate/rhythm, Normal S1 S2 Capillary refill: <2 Seconds Gastrointestinal: Hypoactive Musculoskeletal: No clubbing, No swelling, Other (spasmotic pain to left ankle) Neurological: Normal speech, Normal tone, Normal affect Lymphatics: No axilla or inguinal lymphadenopathy External genitalia: Deferred Rectal: Deferred - Studies Laboratory Data (last 24 hrs) 02/20/24 02/20/24 17:40 17:40 WBC 9.20 Hgb 14.8 Hct 44.4 Plt Count 281 Sodium 134 L Potassium 3.4 L BUN 9 Creatinine 0.79 Glucose 119 H Total Bilirubin 0.9 AST 22 ALT 29 Alkaline Phosphatase 91 Lipase 18 <Jany Mcclain - Last Filed: 02/21/24 08:04> - Studies Laboratory Data (last 24 hrs) 02/20/24 02/20/24 17:40 17:40 WBC 9.20 Hgb 14.8 Hct 44.4 Plt Count 281 Sodium 134 L Potassium 3.4 L BUN 9 Creatinine 0.79 Glucose 119 H Total Bilirubin 0.9 AST 22 ALT 29 Alkaline Phosphatase 91 Lipase 18 <Smith Guzman - Last Filed: 02/21/24 10:20> Assessment And Plan - Plan Assessment and Plan - Problems (Diagnosis) (1) SBO (small bowel obstruction) Current Visit: Yes Status: Acute (2) History of DVT (deep vein thrombosis) Current Visit: No Status: Acute (3) History of pulmonary embolism Current Visit: No Status: Acute (4) Hypertension Onset Date: 05/15/18 Current Visit: No Status: Acute - Plan Impression Partial small bowel obstruction Hypertension DM History of PE on chronic anticoagulation Plan Admit to inpatient N.p.o. Surgical consult for possible intervention with Dr. Wagner Gentle IV fluid IV hydralazine as needed Pain control Replete potassium Insulin sliding scale with Accu-Cheks Hold Xarelto Lovenox therapeutic dose for now Full code Physician Review: Patient Assessed, Agree with Above Assessment and Plan (70) <Jany Mcclain - Last Filed: 02/21/24 08:04> - Plan Pt seen and examined. I agree with the note by the RESEARCH PROGRAM COORDINATOR. Keep pt NPO. Waiting for Gen surgery eval. Will f/u serial KUB. Continue IVF. Hold xarelto for possible s urgical intervention. <Smith Guzman - Last Filed: 02/21/24 10:20>
[2024-02-21] MEDS: MORPHINE 2 MG/ML SYR IV PRN (14:15)
[2024-02-21] MEDS: ALBUTEROL 2.5 MG/3 ML NEB SOL NEB PRN (20:21)
[2024-02-21] MEDS: HYDROCODONE/APAP 7.5/325 MG TAB PO PRN (21:08)
--- NOTE | 2024-02-22 09:00 | RAD REPORT ---
EXAM DESCRIPTION: RAD - Abdomen 1 View (KUB) - 02/22/2024 8:49 am CLINICAL HISTORY: SBO COMPARISON: Abdomen 1 View (KUB) dated 01/29/2022; Abdomen 1 View (KUB) dated 01/27/2022; Abdomen Pel vis W Contrast dated 02/20/2024; Abdomen Pelvis W Contrast dated 10/25/2023; Chest For Pe Angio dated FINDINGS: Mildly dilated small bowel persists in the right lower quadrant. No acute osseous abnormal ity.Visualized lungs are unremarkable.No abnormal calcifications. Trans SI joint screws. Relative [place] of small bowel gas. IMPRESSION: Similar mildly dilated small bowel within the right lower quadrant remains concerning fo r a small bowel obstruction.
--- NOTE | 2024-02-22 09:12 | P.PN ---
Subjective Date of Service: 02/22/24 Chief Complaint: Abdominal pain Subjective: No new changes (ambulating well, + flatus/bm, clear liquids this am, does c/o mild abd tenderness to upper left) <Lizbeth Mcclainavelino Conrad - Last Filed: 02/22/24 09:08> Date of Service: 02/22/24 <Smith Guzman C - Last Filed: 02/22/24 10:10> Review of Systems 10-point ROS is otherwise unremarkable General: As per HPI Gastrointestinal: As per HPI <Lizbeth Mcclainavelino Conrad - Last Filed: 02/22/24 09:08> Physical Examination - Vital Signs Temperature: 97.6 F Blood Pressure: 132/91 Pulse: 72 Respirations: 17 Pulse Ox (%): 97 - Physical Exam General: Alert, In no apparent distress, Oriented x3 HEENT: Atraumatic, Normocephalic Neck: Supple Respiratory: Normal air movement Cardiovascular: No edema, Normal pulses, Regular rate/rhythm, Normal S1 S2 Capillary refill: <2 Seconds Gastrointestinal: Soft and benign, Tenderness (mild/minimal) Musculoskeletal: No clubbing, No swelling Integumentary: No rashes Neurological: Normal speech, Normal tone, Normal affect Lymphatics: No axilla or inguinal lymphadenopathy External genitalia: Deferred Rectal: Deferred <Lizbeth Mcclainavelino Conrad - Last Filed: 02/22/24 09:08> Assessment And Plan - Plan Assessment and Plan - Problems (Diagnosis) (1) SBO (small bowel obstruction) Current Visit: Yes Status: Acute (2) History of DVT (deep vein thrombosis) Current Visit: No Status: Acute (3) History of pulmonary embolism Current Visit: No Status: Acute (4) Hypertension Onset Date: 05/15/18 Current Visit: No Status: Acute - Plan Impression Partial small bowel obstruction Hypertension DM History of PE on chronic anticoagulation Plan Admit to inpatient N.p.o. - 02/[address] Wagner following - will see and decide hospital course Gentle IV fluid IV hydralazine as needed Pain control Replete potassium Insulin sliding scale with Accu-Cheks Hold Xarelto Lovenox therapeutic dose for now Full code Physician Review: Patient Assessed, Agree with Above Assessment and Plan (70) <Jany Mcclain - Last Filed: 02/22/24 09:08> - Plan Pt seen and examined. I agree with the note by the THERMOFORMING MACHINE OPERATOR. KUB still shows SBO. He is passing gas and has positive bowel sound. Waiting for Gen surgery eval. Pt is tolerating clear liquid diet <Smith Guzman - Last Filed: 02/22/24 10:10>
[2024-02-22] MEDS: INSULIN REGULAR (HUMAN) 100 UNIT/ML SQ SCH (11:30)
[2024-02-22] MEDS: ACETAMINOPHEN 325 MG TABLET PO PRN (13:58)
[2024-02-22] MEDS: SERTRALINE HCL 100 MG TAB PO SCH (13:58)
[2024-02-22 23:55] VITALS: BMI 33.4
[2024-02-23] MEDS: TRAZODONE 50 MG TABLET PO SCH (00:33)
[2024-02-23 07:35] VITALS: O2SAT 97
--- NOTE | 2024-02-23 11:10 | RAD REPORT ---
EXAM DESCRIPTION: RAD - Abdomen 1 View (KUB) - 02/23/2024 11:03 am CLINICAL HISTORY: F/O SBO COMPARISON: <Comparisons> FINDINGS: Nonobstructive bowel gas pattern. No acute osseous abnormality.Visualized lungs are unrema rkable.No abnormal calcifications. Increased colonic gas. Dilated small bowel right lower quadrant no longer identified. SI joint screws. IMPRESSION: Nonobstructive bowel gas pattern. Dilated small bowel in the right lower quadrant is no longer identified. Increased colonic gas.
--- NOTE | 2024-02-23 11:39 | P.DS ---
Admission Date: 02/20/24 Discharge Date: 02/23/24 Reason for Admission: Abdominal pain Consultations: Dr. Wagner Procedures: none Brief History of Present Illness: 53-year-old male with hypertension/DM/multiple DVTs and recent pulmonary embolism on Xarelto, previous umbilical hernia status post repair 1 year ago, recent partial small bowel obstruction managed conservatively few months ago. Presented for new abdominal pain today. Pain is in the epigastric area radiating to the all of the rest of the abdomen. Admits to crampy pattern in nature. Admits to nausea but no vomiting. Denies any diarrhea. Admits to no bowel movement since the last 1 day. On arrival in the ED workup with CT shows several dilated small bowel loops are present in the right lower quadrant of the abdomen which appear fecalized measure up to 3.5 cm. This is most compatible with partial mechanical small bowel obstruction. Hospital Course: Mr. Walker did not necessitate surgery or an NG tube.. His diet was slowly a dvanced without difficulty, serial abdominal exams have been negative, positive bowel movements. He has been ambulatory around the nurses station consistently for several days. KUB this morning shows resolution of the partial small bowel obstruction. He will be discharged with follow-up to Dr. Wagner <Jany Mcclain - Last Filed: 02/23/24 11:40> Admission Date: 02/20/24 Discharge Date: 02/23/24 Hospital Course: Pt seen and examined. I agree with the note by the BONDERITE OPERATOR. KUB shows resolution of the SBO. Pt had BM yesterday per nurse. HE tolerated diet. Ok to discharge pt. Pt needs to follow up with Dr. Wagner in clinic. <Smith Guzman - Last Filed: 02/23/24 12:39> Disposition: ROUTINE DISCHARGE Discharge Condition: GOOD Vital Signs/Physical Exam: Temp Pulse Resp BP Pulse Ox 97.5 F 68 17 153/89 H 96 02/23/24 08:00 02/23/24 08:00 02/23/24 08:58 02/23/24 08:00 02/23/24 08:58 General: Alert, In no apparent distress, Oriented x3 HEENT: Atraumatic, Normocephalic Neck: Supple Respiratory: Normal air movement Cardiovascular: Normal pulses, Regular rate/rhythm Capillary refill: <2 Seconds Gastrointestinal: Normal bowel sounds, Soft and benign Musculoskeletal: No clubbing Integumentary: No rashes Neurological: Normal gait, Normal speech, Normal tone, Normal affect Lymphatics: No axilla or inguinal lymphadenopathy External genitalia: Deferred Rectal: Deferred Laboratory Data at Discharge: WBC 7.60 thou/uL (4.3-10.9) 02/21/24 06:16 Hgb 13.9 g/dL (13.6-17.9) 02/21/24 06:16 Hct 41.0 % (39.6-49.0) 02/21/24 06:16 Plt Count 264 thou/uL (152-406) 02/21/24 06:16 Sodium 137 mEq/L (136-145) 02/21/24 06:16 Potassium 3.7 mEq/L (3.5-5.1) 02/21/24 06:16 BUN 7 mg/dL (7-18) 02/21/24 06:16 Creatinine 0.70 mg/dL (0.70-1.30) 02/21/24 06:16 Glucose 109 mg/dL (74-106) H 02/21/24 06:16 Total Bilirubin 0.7 mg/dL (0.2-1.0) 02/21/24 06:16 AST 20 U/L (15-37) 02/21/24 06:16 ALT 25 U/L (16-61) 02/21/24 06:16 Alkaline Phosphatase 84 U/L (45-117) 02/21/24 06:16 Lipase 18 U/L (13-75) 02/20/24 17:40 <Mcclain,Jany [place] - Last Filed: 02/23/24 11:40> Vital Signs/Physical Exam: Temp Pulse Resp BP Pulse Ox 97.5 F 68 17 153/89 H 96 02/23/24 08:00 02/23/24 08:00 02/23/24 08:58 02/23/24 08:00 02/23/24 08:58 Laboratory Data at Discharge: WBC 7.60 thou/uL (4.3-10.9) 02/21/24 06:16 Hgb 13.9 g/dL (13.6-17.9) 02/21/24 06:16 Hct 41.0 % (39.6-49.0) 02/21/24 06:16 Plt Count 264 thou/uL (152-406) 02/21/24 06:16 Sodium 137 mEq/L (136-145) 02/21/24 06:16 Potassium 3.7 mEq/L (3.5-5.1) 02/21/24 06:16 BUN 7 mg/dL (7-18) 02/21/24 06:16 Creatinine 0.70 mg/dL (0.70-1.30) 02/21/24 06:16 Glucose 109 mg/dL (74-106) H 02/21/24 06:16 Total Bilirubin 0.7 mg/dL (0.2-1.0) 02/21/24 06:16 AST 20 U/L (15-37) 02/21/24 06:16 ALT 25 U/L (16-61) 02/21/24 06:16 Alkaline Phosphatase 84 U/L (45-117) 02/21/24 06:16 Lipase 18 U/L (13-75) 02/20/24 17:40 <Smith Guzman - Last Filed: 02/23/24 12:39> Diet: Holmes Activity: Ad aubree <Jany Mcclain - Last Filed: 02/23/24 11:40> <Smith Guzman - Last Filed: 02/23/24 12:39> Home Medications: Atorvastatin Calcium 20 mg PO DAILY 01/25/22 Lisinopril [Zestril] 1 tab PO DAILY 01/25/22 Glecaprevir/Pibrentasvir [Mavyret 100-40 mg Tablet] 1 each PO DAILY 02/02/23 hydrOXYzine HCL [Atarax*] 25 mg PO DAILY 02/02/23 Famotidine 40 mg PO DAILY 02/21/24 Rivaroxaban [Xarelto] 20 mg PO DAILY 02/21/24 Sertraline [Zoloft*] 100 mg PO DAILY 02/21/24 Budesonide/Glycopyr/Formoterol [Breztri Aerosphere Inhaler] 2 puff IH BID PRN 02/22/24 Physician Discharge Instructions: Mr. Walker did not necessitate surgery or an NG tube.. His diet was slowly advanced without difficulty, serial abdominal exams have been negative, positive bowel movements. He has been ambulatory around the nurses station consistently for several days. KUB this morning shows resolution of the partial small bowel obstruction. He will be discharged with follow-up to Dr. Wagner. Okay to DC IV and DC home Follow-up with primary care provider in 1 to 2 weeks Follow-up with Dr. Wagner in 1 to 2-weeks Please call the inpatient unit for any questions or concerns regarding hospital stay Return to the ER for worsening symptoms Followup: Vinayak Wagner MD [ACTIVE - CAN ADMIT] - 1-2 Weeks (call for appointment.) Orion Jimenez DO [Primary Care Provider] - 1-2 Weeks (Call for appointment.)
[2024-02-23 13:06] VITALS: BP 150/89; TEMP 97
== END 2024-02-23 13:07 | disposition home or self-care (01) | DRG 390 ==
LOC: ER 17:25 → ERHOLD 20:08 → 2ND 21:19
PROVIDERS: ADMIT Internal Medicine; ATTEND Hospitalist
DX: K56.600 Partial intestinal obstruction, unspecified as to cause (principal); I10 Essential (primary) hypertension; E11.9 Type 2 diabetes mellitus without complications; B19.20 Unspecified viral hepatitis C without hepatic coma; K21.9 Gastro-esophageal reflux disease without esophagitis; Z79.01 Long term (current) use of anticoagulants; Z86.711 Personal history of pulmonary embolism; Z79.899 Other long term (current) drug therapy; Z86.718 Personal history of other venous thrombosis and embolism
CPT/HCPCS: 36415; 74018; 74177; 80053; 81003; 82947; 83690; 85025; 94640; 96374; 96375; 99285; J1170; J1650; J2270; J2405; J7030; J7613; Q9967

== ENCOUNTER 2024-03-24 19:10 | Emergency (ER) | payer OTHER ==
[2024-03-24] MEDS ORDERED: NA CHLORIDE 0.9% 1,000 ML ONE ×3 (19:21→22:42)
[2024-03-24] MEDS ORDERED: ONDANSETRON 4 MG/2 ML VIAL ONE (19:29)
[2024-03-24] MEDS ORDERED: KETOROLAC 30 MG/ML INJ ONE (19:29)
[2024-03-24] MEDS ORDERED: HALOPERIDOL LACT 5 MG/ML INJ ONE (19:29)
[2024-03-24] MEDS ORDERED: MORPHINE 4 MG/ML SYR ONE (19:30)
[2024-03-24 19:51] LABS: Absolute Basophils 0.1 K/uL (0-0.5); Absolute Eosinophils 0.1 K/uL (0-0.5); Absolute Lymphocytes (CBC) 1.3 K/uL (0.7-4.9); Absolute Monocytes 0.7 K/uL (0.1-1.3); Absolute Neutrophil 6.3 K/uL (1.8-8.0); Basophils % 0.7 % (0-1.3); Eosinophils % 1.5 % (0-4.4); Hematocrit 38.2 % (39.6-49.0); Hemoglobin 12.7 g/dL (13.6-17.9); Lymphocytes % 15.1 % (15.3-44.8); MCH 30.8 pg (27.0-35.0); MCHC 33.2 g/dL (32.0-36.0); MCV 92.6 fL (80-100); MPV 6.8 fL (7.6-11.3); Monocytes % 8.3 % (3.3-12.3); Neutrophils % 74.4 % (41.7-73.7); Nucleated Red Blood Cells % 0.2 % (0-0); Platelets 252 thou/uL (152-406); RBC Red Blood Cell Count 4.12 M/uL (4.33-5.43)
[2024-03-24 20:15] LABS: Albumin/Globulin Ratio 0.8 (1.1-1.8); Anion Gap 8.4 mEq/L (5.0-15.0); Bilirubin Total 0.6 mg/dL (0.2-1.0); Globulin 3.6 g/dL (2.3-3.5); Potassium 3.4 mEq/L (3.5-5.1); Protein, Total 6.6 g/dL (6.4-8.2)
--- NOTE | 2024-03-24 20:51 | RAD REPORT ---
EXAM DESCRIPTION: CT - Abdomen Pelvis Wo Contrast - 03/24/2024 8:42 pm CLINICAL HISTORY: Abdominal pain. ABD PAIN COMPARISON: <Comparisons> TECHNIQUE: CT imaging of the abdomen and pelvis was performed without contrast. Solid organ, bowel a nd vascular assessment is limited due to lack of IV and oral contrast. All CT scans are performed using dose optimization technique as appropriate and may include automated exposure control or mA/KV adjustment according to patient size. FINDINGS: The lower lung palacios are clear. The liver, spleen, pancreas, adrenal glands and kidneys are within normal limits for a limited non-co ntrast examination. No bowel obstruction, free air, free fluid or abscess. Sigmoid diverticulosis coli without diverticul itis. The appendix is normal. Hardware is in place in the pelvis. IMPRESSION: No acute intra-abdominal or pelvic findings. Prominent sigmoid diverticulosis coli witho ut diverticulitis. A limited non-contrast examination was performed as detailed.
[2024-03-24] MEDS ORDERED: methocarbamoL 750 MG TAB ONE (21:41)
[2024-03-24] MEDS ORDERED: HYDROCODONE/APAP 10/325 TAB ONE (21:41)
[2024-03-24] MEDS ORDERED: PROMETHAZINE 25 MG TABLET ONE (21:41)
[2024-03-24] MEDS ORDERED: ALBUMIN HUMAN 25% 100 ML IV ONE (21:42)
[2024-03-24] MEDS ORDERED: MAGNES/ALUMIN/SIMET 30ML UCUP ONE (22:42)
[2024-03-24 23:33] LABS: Anion Gap 7.6 mEq/L (5.0-15.0); Potassium 3.6 mEq/L (3.5-5.1)
--- NOTE | 2024-03-25 00:03 | ER ---
Nurse's Notes [facility] Name: Dwayne Walker Jr Age: 53 yrs Sex: Male : 1970 Arrival Date: 03/24/2024 Time: 19:10 Bed 16 Private MD: Diagnosis: Dehydration;Acute renal insufficiency, Heat exhaustion Presentation: 03/24 19:05 Chief complaint: Patient states: I've been having abdominal pain, back pain, and neck jw7 pain that got worse this afternoon. I also have been feeling really dizzy like I'm going to pass out with shortness of breath since about 1500 today. 19:05 Coronavirus screen: At this time, the client does not indicate any symptoms associated jw7 with coronavirus-19. Ebola Screen: No symptoms or risks identified at this time. Initial Sepsis Screen: Does the patient meet any 2 criteria? No. Patient's initial sepsis screen is negative. Does the patient have a suspected source of infection? No. Patient's initial sepsis screen is negative. Risk Assessment: Do you want to hurt yourself or someone else? Patient reports no desire to harm self or others. Onset of symptoms was March 24, 2024. Care prior to arrival: Medication(s) given: Normal saline infusion, 250mL IV initiated. 18 GA, in the left antecubital area, Glucose check: 151. 19:05 Method Of Arrival: EMS: [facility] 19:05 Acuity: FÉLIX 3 jw7 Triage Assessment: 19:05 General: Appears in no apparent distress. uncomfortable, Behavior is calm, cooperative, jw7 appropriate for age. Pain: Complains of pain in back and abdomen, and neck Pain does not radiate. Pain currently is 8 out of 10 on a pain scale. Quality of pain is described as sharp, Pain began suddenly, Is continuous. EENT: No deficits noted. No signs and/or symptoms were reported regarding the EENT system. Neuro: Level of Consciousness is awake, alert, obeys commands, Oriented to person, place, time, situation, Appropriate for age. Cardiovascular: Heart tones S1 S2 present Capillary refill < 3 seconds Clubbing of nail beds is absent JVD is absent Patient's skin is warm and dry. Respiratory: Reports shortness of breath Airway is patent Trachea midline Respiratory effort is even, unlabored, Respiratory pattern is regular, symmetrical. GI: Abdomen is round Bowel sounds present X 4 quads. Abd is soft and non tender Reports lower abdominal pain, upper abdominal pain, nausea. : No deficits noted. No signs and/or symptoms were reported regarding the genitourinary system. Derm: Skin is intact, is healthy with good turgor, Skin is dry, Skin is normal, Skin temperature is warm. Musculoskeletal: Circulation, motion, and sensation intact. Range of motion: intact in all extremities. Historical: - Allergies: 19: No Known Allergies; jw7 - Home Meds: 19:05 atorvastatin 20 mg Oral tablet [Active]; gabapentin 800 mg Oral tablet [Active]; jw7 hydrocodone-acetaminophen 7.5-325 mg Oral tablet [Active]; hydroxyzine HCl 25 mg Oral tablet [Active]; lisinopril 40 mg Oral tablet [Active]; famotidine 40 mg oral tablet [Active]; furosemide 20 mg Oral tablet [Active]; Glyxambi 10-5 mg oral tablet [Active]; sertraline 100 mg oral tablet [Active]; trazodone 100 mg Oral tablet [Active]; Xarelto 20 mg oral tablet [Active]; Zoloft 100 mg Oral tablet [Active]; - PMHx: 19:05 Borderline Diabetes; DVT; HEP C; Hypertension; Pulmonary Embolism; Umbilical hernia; jw7 bowl obstruction (Umbilical hernia); enlarged heart (Umbilical hernia); Major depressive disorder; Anxiety; - PSHx: 19:05 hernia; Leg surgery; jw7 - Immunization history:: Adult Immunizations up to date, Client reports receiving the 2nd dose of the Covid vaccine, Flu vaccine is up to date. - Infectious Disease History:: Denies. - Social history:: Smoking status: Reported history of juuling and/or vaping. Patient uses alcohol, occasionally. Patient/guardian denies using street drugs, IV drugs. - Family history:: not pertinent. Screenin:05 [facility] ED Fall Risk Assessment (Adult) History of falling in the last 3 months, jw7 including since admission No falls in past 3 months (0 pts) Confusion or Disorientation No (0 pts) Intoxicated or Sedated No (0 pts) Impaired Gait Yes (1 pt) Mobility Assist Device Used No (0 pt) Altered Elimination No (0 pt) Score/Fall Risk Level 0 - 2 = Low Risk Oriented to surroundings, Maintained a safe environment, Educated pt \T\ family on fall prevention, incl call for assistance when getting out of bed. Abuse screen: Denies threats or abuse. Denies injuries from another. Nutritional screening: No deficits noted. Tuberculosis screening: No symptoms or risk factors identified. Assessment: 19:05 General: See Triage Assessment. [facility] 20:00 Reassessment: Patient appears in no apparent distress at this time. No changes from [facility] previously documented assessment. Patient and/or family updated on plan of care and expected duration. Pain level reassessed. Patient is alert, oriented x 3, equal unlabored respirations, skin warm/dry/pink. 21:00 Reassessment: Patient appears in no apparent distress at this time. No changes from jw7 previously documented assessment. Patient and/or family updated on plan of care and expected duration. Pain level reassessed. Patient is alert, oriented x 3, equal unlabored respirations, skin warm/dry/pink. 22:00 Reassessment: Patient appears in no apparent distress at this time. No changes from jw7 previously documented assessment. Patient and/or family updated on plan of care and expected duration. Pain level reassessed. Patient is alert, oriented x 3, equal unlabored respirations, skin warm/dry/pink. 23:00 Reassessment: Patient appears in no apparent distress at this time. No changes from jw7 previously documented assessment. Patient and/or family updated on plan of care and expected duration. Pain level reassessed. Patient is alert, oriented x 3, equal unlabored respirations, skin warm/dry/pink. 03/25 00:00 Reassessment: Patient appears in no apparent distress at this time. Patient and/or jw7 family updated on plan of care and expected duration. Pain level reassessed. Patient is alert, oriented x 3, equal unlabored respirations, skin warm/dry/pink. Patient states feeling better. Patient states symptoms have improved. 01:00 Reassessment: Patient appears in no apparent distress at this time. No changes from jw7 previously documented assessment. Patient and/or family updated on plan of care and expected duration. Pain level reassessed. Patient is alert, oriented x 3, equal unlabored respirations, skin warm/dry/pink. Vital Signs: 03/24 19:05 BP 89 / 73; Pulse 96; Resp 20 S; Temp 98.3(O); Pulse Ox 97% on R/A; Weight 99.34 kg; jw7 Pain 8/10; 20:00 BP 99 / 61; Pulse 83; Resp 19 S; Pulse Ox 93% on R/A; jw7 21:00 BP 99 / 60; Pulse 84; Resp 19 S; Pulse Ox 92% on R/A; jw7 22:00 BP 110 / 63; Pulse 81; Resp 18 S; Pulse Ox 92% on R/A; jw7 23:00 BP 137 / 80; Pulse 88; Resp 17 S; Pulse Ox 96% on R/A; jw7 03/25 00:00 BP 134 / 87; Pulse 81; Resp 17 S; Pulse Ox 95% on R/A; jw7 01:00 BP 128 / 67; Pulse 82; Resp 16 S; Pulse Ox 97% on R/A; jw7 03/24 19:05 Pain Scale: Adult jw7 [place] Coma Score: 04:47 Eye Response: spontaneous(4). Motor Response: obeys commands(6). Verbal Response: sp4 oriented(5). Total: 15. ED Course: 03/24 19:05 Maintain EMS IV. Dressing intact. Good blood return noted. Site clean \T\ dry. Gauge \T\ jw 7 site: 18 G LAC. Flushed left antecubital with 5 ml normal saline. 19:05 Arm band placed on. jw7 19:05 Patient has correct armband on for positive identification. Bed in low position. Call jw7 light in reach. Side rails up X2. Provided Education on: use of call light. 19:19 Patient arrived in ED. jw7 19:20 Tatianan Madrigal, RN is Primary Nurse. jw7 19:22 Artur Bazzi MD is Attending Physician. sp4 19:46 CBC with Diff Sent. jw7 19:46 CMP Sent. jw7 19:46 Lipase Sent. jw7 19:51 Triage completed. jw7 20:43 Abdomen In Process Unspecified. EDMS 03/25 01:00 No provider procedures requiring assistance completed. jw7 01:00 IV discontinued, intact, bleeding controlled, No redness/swelling at site. Pressure jw7 dressing applied. Administered Medications: 03/24 19:25 Drug: NS 0.9% IV 1000 ml IV at 1 bolus Per protocol; 1000 mL bolus Route: IV; Rate: 1 jw7 bolus; Site: left antecubital; 03/25 01:00 Follow up: Response: No adverse reaction; Marked relief of symptoms; IV Status: jw7 Completed infusion; IV Intake: 1000ml 03/24 19:46 Drug: NS 0.9% IV 1000 ml IV at 1 bolus Per protocol; 1000 mL bolus Route: IV; Rate: 1 jw7 bolus; Site: left antecubital; 03/25 01:00 Follow up: Response: No adverse reaction; Marked relief of symptoms; IV Status: jw7 Completed infusion; IV Intake: 1000ml 03/24 19:46 Drug: TORadol - Ketorolac IVP 30 mg IVP once Route: IVP; Site: left antecubital; 7 03/25 01:00 Follow up: Response: No adverse reaction; Marked relief of symptoms 7 03/24 19:46 Drug: Ondansetron IVP 4 mg IVP once; over 2 minutes Route: IVP; Site: left antecubital; 7 03/25 01:00 Follow up: Response: No adverse reaction; Marked relief of symptoms 7 03/24 21:50 Drug: [place] PO 10 mg-325 mg 1 tabs PO once Route: PO; 7 03/25 01:28 Follow up: Response: No adverse reaction; Marked relief of symptoms 7 03/24 21:50 Drug: Promethazine PO 25 mg PO once Route: PO; 7 03/25 01:00 Follow up: Response: No adverse reaction; Marked relief of symptoms 7 03/24 21:50 Drug: Methocarbamol PO 750 mg PO once Route: PO; 7 03/25 01:00 Follow up: Response: No adverse reaction; Marked relief of symptoms 7 03/24 22:44 Not Given (Not Available in the Hospitall): ns 0.45 % with kcl20 meq/l 1000 ml IV at jw7 250 ml/hr once 23:19 Drug: Haloperidol IVP 2.5 mg/50 mL 2.5 mg IVP once; Place patient on a compliance monitor jw7 Route: IVP; Site: left antecubital; 03/25 01:00 Follow up: Response: No adverse reaction; Marked relief of symptoms 7 03/24 23:19 Drug: morphine IVP or IV 4 mg IVP once over 4 mins Route: IVP; Infused Over: 4 mins; jw7 Site: left antecubital; 03/25 01:00 Follow up: Response: No adverse reaction; Marked relief of symptoms; Pain is decreased jw7 03/24 23:19 Drug: Albumin IVPB 25 grams 100 ml IVPB once; (Note: Albumin 25% concentration) Volume: jw7 100 ml; Route: IVPB; Site: left antecubital; 03/25 01:00 Follow up: Response: No adverse reaction; Marked relief of symptoms; IV Status: jw7 Completed infusion; IV Intake: 100ml 03/24 23:19 Drug: NS 0.9% IV 1000 ml IV at 1 bolus Per protocol; 1000 mL bolus Route: IV; Rate: 1 jw7 bolus; Site: left antecubital; 03/25 01:00 Follow up: Response: No adverse reaction; Marked relief of symptoms; IV Status: jw7 Completed infusion; IV Intake: 1000ml 03/24 23:19 Drug: Alum-Mag Hydroxide-Simeth PO Suspension (200 mg-200 mg-20 mg/5 mL) 30 ml PO once jw7 Route: PO; 03/25 01:00 Follow up: Response: No adverse reaction; Marked relief of symptoms jw7 Medication: 01:00 VIS not applicable for this client. jw7 Intake: 01:00 IV: 1000ml; Total: 1000ml. jw7 01:00 IV: 1000ml; Total: 2000ml. jw7 01:00 IV: 100ml; Total: 2100ml. jw7 01:00 IV: 1000ml; Total: 3100ml. jw7 Outcome: 00:03 Discharge ordered by . sp4 01:00 Discharged to home ambulatory, jw7 01:00 Condition: stable 01:00 Discharge instructions given to patient, Instructed on discharge instructions, follow up and referral plans. Demonstrated understanding of instructions, follow-up care, 01:30 Patient left the ED. jw7 Signatures: [facility] Tatianna Funes RN RN jw7 Potepalov, Sergey, MD MD sp4 Corrections: (The following items were deleted from the chart) 03/24 19:57 19:05 PSHx: left leg sx (Leg surgery); jw7 jw7
--- NOTE | 2024-03-25 00:03 | EDPHYS ---
Physician Documentation [facility] Name: Dwayne Walker Jr Age: 53 yrs Sex: Male : 1970 Arrival Date: 03/24/2024 Time: 19:10 Bed 16 Private MD: ED Physician Artur Bazzi HPI: 03/24 21:12 This 53 yrs old Male presents to ER via EMS with complaints of Dizziness. sp4 03/25 04:47 53-year-old male presents with EMS after he spent all day fishing on the boat, patient sp4 with heat exhaustion, back pain abdominal pain and dizziness. . Historical: - Allergies: 03/24 19:05 No Known Allergies; jw7 - Home Meds: 19:05 atorvastatin 20 mg Oral tablet [Active]; gabapentin 800 mg Oral tablet [Active]; jw7 hydrocodone-acetaminophen 7.5-325 mg Oral tablet [Active]; hydroxyzine HCl 25 mg Oral tablet [Active]; lisinopril 40 mg Oral tablet [Active]; famotidine 40 mg oral tablet [Active]; furosemide 20 mg Oral tablet [Active]; Glyxambi 10-5 mg oral tablet [Active]; sertraline 100 mg oral tablet [Active]; trazodone 100 mg Oral tablet [Active]; Xarelto 20 mg oral tablet [Active]; Zoloft 100 mg Oral tablet [Active]; - PMHx: 19:05 Borderline Diabetes; DVT; HEP C; Hypertension; Pulmonary Embolism; Umbilical hernia; jw7 bowl obstruction (Umbilical hernia); enlarged heart (Umbilical hernia); Major depressive disorder; Anxiety; - PSHx: 19:05 hernia; Leg surgery; jw7 - Immunization history:: Adult Immunizations up to date, Client reports receiving the 2nd dose of the Covid vaccine, Flu vaccine is up to date. - Infectious Disease History:: Denies. - Social history:: Smoking status: Reported history of juuling and/or vaping. Patient uses alcohol, occasionally. Patient/guardian denies using street drugs, IV drugs. - Family history:: not pertinent. ROS: 03/25 04:47 Constitutional: Negative for fever, chills, and weight loss, positive for dizziness, sp4 back pain, abdominal pain, heat exhaustion All other systems are negative, Exam: 04:47 Constitutional: This is a well developed, well nourished patient who is awake, alert, sp4 and in no acute distress. Head/Face: Normocephalic, atraumatic. Eyes: Pupils equal round and reactive to light, extra-ocular motions intact. Lids and lashes normal. Conjunctiva and sclera are not injected. Cornea within normal limits. Periorbital areas with no swelling, redness, or edema. ENT: Nares patent. No nasal discharge, no septal abnormalities noted. Tympanic membranes are normal and external auditory canals are clear. Oropharynx with no redness, swelling, or masses, exudates, or evidence of obstruction, uvula midline. Mucous membranes moist. Neck: Trachea midline, no thyromegaly or masses palpated, and no cervical lymphadenopathy. Supple, full range of motion without nuchal rigidity, or vertebral point tenderness. Chest/axilla: Normal chest wall appearance and motion. Nontender with no deformity. No lesions are appreciated. Cardiovascular: Regular rate and rhythm with a normal S1 and S2. No gallops, murmurs, or rubs. Normal PMI, no JVD. No pulse deficits. Respiratory: Lungs have equal breath sounds bilaterally, clear to auscultation and percussion. No rales, rhonchi or wheezes noted. No increased work of breathing, no retractions or nasal flaring. Abdomen/GI: Soft, with normal bowel sounds. No distension or tympany. No guarding or rebound. No evidence of tenderness throughout. Back: No spinal tenderness. No costovertebral tenderness. Skin: Warm, dry with normal turgor. Normal color with no rashes, no lesions, and no evidence of cellulitis. MS/ Extremity: Pulses equal, no cyanosis. Neurovascular intact. Full, normal range of motion. Neuro: Awake and alert, GCS 15, oriented to person, place, time, and situation. Cranial nerves II-XII grossly intact. Motor strength 5/5 in all extremities. Sensory grossly intact. Psych: Awake, alert, with orientation to person, place and time. Behavior, mood, and affect are within normal limits Vital Signs: 03/24 19:05 BP 89 / 73; Pulse 96; Resp 20 S; Temp 98.3(O); Pulse Ox 97% on R/A; Weight 99.34 kg; jw7 Pain 8/10; 20:00 BP 99 / 61; Pulse 83; Resp 19 S; Pulse Ox 93% on R/A; jw7 21:00 BP 99 / 60; Pulse 84; Resp 19 S; Pulse Ox 92% on R/A; jw7 22:00 BP 110 / 63; Pulse 81; Resp 18 S; Pulse Ox 92% on R/A; jw7 23:00 BP 137 / 80; Pulse 88; Resp 17 S; Pulse Ox 96% on R/A; jw7 03/25 00:00 BP 134 / 87; Pulse 81; Resp 17 S; Pulse Ox 95% on R/A; jw7 01:00 BP 128 / 67; Pulse 82; Resp 16 S; Pulse Ox 97% on R/A; jw7 03/24 19:05 Pain Scale: Adult jw7 [place] Coma Score: 04:47 Eye Response: spontaneous(4). Motor Response: obeys commands(6). Verbal Response: sp4 oriented(5). Total: 15. MDM: 03/24 19:24 Patient medically screened. sp4 21:15 ED course: Reason for Exam: ABD PAIN Report Status: Signed EXAM DESCRIPTION: CT - sp4 Abdomen Pelvis Wo Contrast - 03/24/2024 8:42 pm CLINICAL HISTORY: Abdominal pain. ABD PAIN COMPARISON: <Comparisons> TECHNIQUE: CT imaging of the abdomen and pelvis was performed without contrast. Solid organ, bowel and vascular assessment is limited due to lack of IV and oral contrast. All CT scans are performed using dose optimization technique as appropriate and may include automated exposure control or mA/KV adjustment according to patient size. FINDINGS: The lower lung palacios are clear. The liver, spleen, pancreas, adrenal glands and kidneys are within normal limits for a limited non-contrast examination. No bowel obstruction, free air, free fluid or abscess. Sigmoid diverticulosis coli without diverticulitis. The appendix is normal. Hardware is in place in the pelvis. IMPRESSION: No acute intra-abdominal or pelvic findings. Prominent sigmoid diverticulosis coli without diverticulitis. A limited non-contrast examination was performed as detailed. Dictated By: Edil Rosas MD 03/24/242050. 03/25 04:48 Differential diagnosis: generalized weakness, hyperventilation, hypovolemia, idiopathic sp4 dizziness, near-syncope. Data reviewed: vital signs, nurses notes, EMS record, lab test result(s), radiologic studies, CT scan. Consideration of Admission/Observation Escalation of care including admission/observation considered. ED course: Was given generous IV hydration, he felt improved. Stable for discharge home. Advised clear liquid diet for 24-hour. 03/24 19:23 Order name: CBC with Diff; Complete Time: 21:10 sp4 03/24 19:23 Order name: CMP; Complete Time: 21:10 sp4 03/24 19:23 Order name: Lipase; Complete Time: 21:10 sp4 03/24 21:10 Order name: Alcohol Level; Complete Time: 23:56 sp4 03/24 21:24 Order name: CK; Complete Time: 23:56 sp4 03/24 21:24 Order name: BMP; Complete Time: 23:56 sp4 03/24 20:29 Order name: Abdomen ; Complete Time: 21:10 EDMS 03/24 19:23 Order name: IV Saline Lock; Complete Time: 19:46 sp4 03/24 19:23 Order name: Labs collected and sent; Complete Time: 19:46 sp4 Administered Medications: 03/24 19:25 Drug: NS 0.9% IV 1000 ml IV at 1 bolus Per protocol; 1000 mL bolus Route: IV; Rate: 1 jw7 bolus; Site: left antecubital; 03/25 01:00 Follow up: Response: No adverse reaction; Marked relief of symptoms; IV Status: jw7 Completed infusion; IV Intake: 1000ml 03/24 19:46 Drug: NS 0.9% IV 1000 ml IV at 1 bolus Per protocol; 1000 mL bolus Route: IV; Rate: 1 jw7 bolus; Site: left antecubital; 03/25 01:00 Follow up: Response: No adverse reaction; Marked relief of symptoms; IV Status: jw7 Completed infusion; IV Intake: 1000ml 03/24 19:46 Drug: TORadol - Ketorolac IVP 30 mg IVP once Route: IVP; Site: left antecubital; 7 03/25 01:00 Follow up: Response: No adverse reaction; Marked relief of symptoms 7 03/24 19:46 Drug: Ondansetron IVP 4 mg IVP once; over 2 minutes Route: IVP; Site: left antecubital; 7 03/25 01:00 Follow up: Response: No adverse reaction; Marked relief of symptoms 03/24 21:50 Drug: [place] PO 10 mg-325 mg 1 tabs PO once Route: PO; 7 03/25 01:28 Follow up: Response: No adverse reaction; Marked relief of symptoms jw7 03/24 21:50 Drug: Promethazine PO 25 mg PO once Route: PO; jw7 03/25 01:00 Follow up: Response: No adverse reaction; Marked relief of symptoms jw7 03/24 21:50 Drug: Methocarbamol PO 750 mg PO once Route: PO; 7 03/25 01:00 Follow up: Response: No adverse reaction; Marked relief of symptoms 7 03/24 22:44 Not Given (Not Available in the Hospitall): ns 0.45 % with kcl20 meq/l 1000 ml IV at jw7 250 ml/hr once 23:19 Drug: Haloperidol IVP 2.5 mg/50 mL 2.5 mg IVP once; Place patient on a monitoring analyst jw7 Route: IVP; Site: left antecubital; 03/25 01:00 Follow up: Response: No adverse reaction; Marked relief of symptoms jw7 03/24 23:19 Drug: morphine IVP or IV 4 mg IVP once over 4 mins Route: IVP; Infused Over: 4 mins; jw7 Site: left antecubital; 03/25 01:00 Follow up: Response: No adverse reaction; Marked relief of symptoms; Pain is decreased jw7 03/24 23:19 Drug: Albumin IVPB 25 grams 100 ml IVPB once; (Note: Albumin 25% concentration) Volume: jw7 100 ml; Route: IVPB; Site: left antecubital; 03/25 01:00 Follow up: Response: No adverse reaction; Marked relief of symptoms; IV Status: jw7 Completed infusion; IV Intake: 100ml 03/24 23:19 Drug: NS 0.9% IV 1000 ml IV at 1 bolus Per protocol; 1000 mL bolus Route: IV; Rate: 1 jw7 bolus; Site: left antecubital; 03/25 01:00 Follow up: Response: No adverse reaction; Marked relief of symptoms; IV Status: jw7 Completed infusion; IV Intake: 1000ml 03/24 23:19 Drug: Alum-Mag Hydroxide-Simeth PO Suspension (200 mg-200 mg-20 mg/5 mL) 30 ml PO once jw7 Route: PO; 03/25 01:00 Follow up: Response: No adverse reaction; Marked relief of symptoms jw7 Disposition Summary: 03/25/24 00:03 Discharge Ordered Notes: Location: Home sp4 Problem: new sp4 Symptoms: have improved sp4 Condition: Stable sp4 Diagnosis - Dehydration sp4 - Acute renal insufficiency, Heat exhaustion sp4 Followup: sp4 - With: Private Physician - When: 7 - 10 days - Reason: Recheck today's complaints Discharge Instructions: - Discharge Summary Sheet sp4 - Dehydration, Adult sp4 Forms: - Patient Portal Instructions sp4 Signatures: Dispatcher [employer] Tatianna Funes RN RN jw7 Artur Bazzi MD MD sp4 Corrections: (The following items were deleted from the chart) 03/24 19:57 19:05 PSHx: left leg sx (Leg surgery); jw7 jw7 20:29 19:24 Abdomen Pelvis W [id number] ordered. EDMS EDMS
[2024-03-25 05:20] VITALS: BP 128/67; O2SAT 97
== END 2024-03-25 01:30 | disposition home or self-care (01) ==
LOC: ER 19:10
DX: E86.0 Dehydration (principal); T67.5XXA Heat exhaustion, unspecified, initial encounter; N28.9 Disorder of kidney and ureter, unspecified
CPT/HCPCS: 85025; 80048; 36415; 82550; 83690; 80053; 74176; 82077; Q0169; J1630; J2405; P9047; J7030 ×3; 96361; 96365; 96366; 96375; 99284

== ENCOUNTER 2024-04-10 09:08 | Inpatient (IN) | payer OTHER ==
[2024-04-10] MEDS ORDERED: KETOROLAC 30 MG/ML INJ ONE (09:19)
[2024-04-10] MEDS ORDERED: LIDOCAINE 4% PATCH ONE (09:20)
[2024-04-10] MEDS ORDERED: DIPHENHYDRAMINE 50 MG/ML VIAL ONE (09:20)
--- NOTE | 2024-04-10 09:30 | RAD REPORT ---
EXAM DESCRIPTION: RAD - Chest Single View - 04/10/2024 9:24 am CLINICAL HISTORY: Blunt chest traum Chest pain. COMPARISON: Abdomen 1 View (KUB) dated 02/23/2024; Abdomen 1 View (KUB) dated 02/22/2024; Chest Single V iew dated 01/17/2024; Chest Single View dated 08/02/2023 FINDINGS: Portable technique limits examination quality. The lungs are grossly clear. The is mildly prominent in size. No displaced fractures. IMPRESSION: No acute intrathoracic process suspected.
[2024-04-10 09:51] LABS: Absolute Basophils 0.1 K/uL (0-0.5); Absolute Eosinophils 0.1 K/uL (0-0.5); Absolute Lymphocytes (CBC) 1.4 K/uL (0.7-4.9); Absolute Monocytes 0.6 K/uL (0.1-1.3); Absolute Neutrophil 5.7 K/uL (1.8-8.0); Eosinophils % 0.8 % (0-4.4); Hematocrit 44.2 % (39.6-49.0); Hemoglobin 14.5 g/dL (13.6-17.9); Lymphocytes % 17.4 % (15.3-44.8); MCH 30.2 pg (27.0-35.0); MCHC 32.7 g/dL (32.0-36.0); MCV 92.3 fL (80-100); MPV 6.7 fL (7.6-11.3); Monocytes % 7.9 % (3.3-12.3); Neutrophils % 72.9 % (41.7-73.7); Platelets 394 thou/uL (152-406); RBC Red Blood Cell Count 4.79 M/uL (4.33-5.43); Red Cell Distribution Width 14.5 % (12.1-15.2)
--- NOTE | 2024-04-10 10:08 | RAD REPORT ---
EXAM DESCRIPTION: CT - Head C Spine Cap Virgie Evans - 04/10/2024 9:46 am CLINICAL HISTORY: Trauma, head and neck injury. Chest, abdomen and pelvis pain. GLF, R posterior rib injury, abd pain COMPARISON: No comparisons TECHNIQUE: CT head without contrast. CT cervical spine without contrast with coronal and sagittal reformatted images. CT chest, abdomen and pelvis with IV contrast (approximately 100 mL nonionic IV contrast) with saunders l and sagittal reformatted images of the spine. All CT scans are performed using dose optimization technique as appropriate and may include automated exposure control or mA/KV adjustment according to patient size. FINDINGS: CT HEAD WITHOUT CONTRAST: No intracranial hemorrhage, hydrocephalus or extra-axial fluid collection. No areas of brain edema o r midline shift. The paranasal sinuses and mastoids are clear. The calvarium is intact. CT CERVICAL SPINE WITHOUT CONTRAST: No fracture or subluxation. The prevertebral soft tissues are normal in thickness. CT CHEST, ABDOMEN, PELVIS WITH CONTRAST: The lungs are clear.No pneumothorax or pericardial/pleural fluid. Mildly displaced posterior right 10 , 11, 12th rib fractures. No underlying injury to the liver or other right lung suspected no pneumoth orax No evidence of intra-abdominal visceral injury, free fluid or free air. No concerning pelvic findings. Bridging osteophytes throughout the thoracic and lumbar spine bilaterally likely indicating ankylosin g spondylitis. IMPRESSION: Posterior right sided inferior rib fractures affecting rib 10, 11 and 12. Fractures are mildly displaced. No underlying solid organ injury or pneumothorax. Findings favoring ankylosing spondylitis noted.
[2024-04-10 10:11] LABS: Albumin 3.5 g/dL (3.4-5.0); Albumin/Globulin Ratio 0.7 (1.1-1.8); Anion Gap 15.2 mEq/L (5.0-15.0); Bilirubin Direct 0.2 mg/dL (0-0.2); Bilirubin Indirect, Calculated 0.3 mg/dL (0.2-0.8); Bilirubin Total 0.5 mg/dL (0.2-1.0); Potassium 3.2 mEq/L (3.5-5.1); Protein, Total 8.5 g/dL (6.4-8.2)
--- NOTE | 2024-04-10 10:42 | ER ---
Nurse's Notes [facility] Name: Dwayne Walker Jr Age: 53 yrs Sex: Male : 1970 Arrival Date: 04/10/2024 Time: 09:08 Bed 19 Private MD: Diagnosis: Multiple fractures of ribs, right side Presentation: 04/10 09:15 Chief complaint: Patient states: Tripped and fell this morning. R sided rib cage pains ll1 with bruising noted. Coronavirus screen: Client denies travel out of the [place] in the last 14 days. At this time, the client does not indicate any symptoms associated with coronavirus-19. Ebola Screen: Patient denies travel to an Ebola-affected area in the 21 days before illness onset. Initial Sepsis Screen: Does the patient meet any 2 criteria? No. Patient's initial sepsis screen is negative. Does the patient have a suspected source of infection? No. Patient's initial sepsis screen is negative. Risk Assessment: Do you want to hurt yourself or someone else? Patient reports no desire to harm self or others. Onset of symptoms was April 10, 2024. 09:15 Method Of Arrival: EMS: [facility] ll1 09:15 Acuity: FÉLIX 2 ll1 09:15 Care prior to arrival: None. Mechanism of Injury: Fall from standing position. Trauma ph event details: Injury occurred in the [facility], Injury occurred: at home. Injury occurred: April 10, 2024. Triage Assessment: 09:15 Pain: Complains of pain in R ribs Pain currently is 10 out of 10 on a pain scale. ll1 Quality of pain is described as aching, throbbing. Respiratory: Reports pain with movement pain with respiration. Derm: Reports pain bruising noted R rib cage area. Historical: - Allergies: 09:15 No Known Drug Allergies; ll1 - PMHx: 09:15 Anxiety; Borderline Diabetes; bowl obstruction (Umbilical hernia); Pulmonary Embolism; ll1 DVT; Enlarged Heart (Umbilical hernia); HEP C; Major Depressive Disorder; Hypertension; Umbilical hernia; - PSHx: 09:15 hernia; Leg surgery; ll1 - Immunization history:: Adult Immunizations up to date. - Immunization history: Last tetanus immunization: unknown. - Infectious Disease History:: Denies. - Social history:: Smoking status: Patient denies any tobacco usage or history of. Screenin:39 [facility] ED Fall Risk Assessment (Adult) History of falling in the last 3 months, ph including since admission Yes- single mechanical fall (1 pt) Confusion or Disorientation No (0 pts) Intoxicated or Sedated Yes (3 pts) Impaired Gait No (0 pts) Mobility Assist Device Used No (0 pt) Altered Elimination No (0 pt) Score/Fall Risk Level 0 - 2 = Low Risk Oriented to surroundings, Maintained a safe environment, Hourly rounding (assess needs \T\ fall precautionary measures) done. Abuse screen: Denies threats or abuse. Denies injuries from another. 14:18 Nutritional screening: No deficits noted. Tuberculosis screening: No symptoms or risk ph factors identified. Primary Survey: 09:20 NO uncontrolled hemorrhage observed. A: The client is awake and alert. The airway is ph patent. Breathing/Chest: Spontaneous respiratory effort, equal unlabored respirations, breath sounds clear bilaterally, regular pattern, symmetrical chest rise and fall. Circulation: No external hemorrhage present. Regular and strong central pulse, skin warm/dry/normal color. Disability Pupils are equal, round, reactive to light and accommodation. Exposure/Environment: There is no evidence of uncontrolled external bleeding. No obvious injuries are noted at this time. 10:39 Reassessment Alertness and Airway: Awake and alert. The airway is patent. Breathing: ph Spontaneous respiratory effort, equal unlabored respirations, breath sounds clear bilaterally, regular pattern with symmetrical chest rise and fall. Circulation: No external hemorrhage noted. Regular and strong central pulse, skin warm/dry/normal color. Disability: Pupils Pupils are equal, round, reactive to light and accomodation. Assessment: 09:20 General: Appears in no apparent distress. uncomfortable, Behavior is calm, cooperative. ph Pain: Complains of pain in back. Neuro: Level of Consciousness is awake, alert, obeys commands, Oriented to person, place, time, situation. Cardiovascular: Capillary refill < 3 seconds. Respiratory: Airway is patent Respiratory effort is even, unlabored. Derm: Skin is pink, warm \T\ dry. Musculoskeletal: Circulation, motion, and sensation intact. 11:00 Reassessment: Patient appears in no apparent distress at this time. Patient and/or ph family updated on plan of care and expected duration. Pain level reassessed. Patient is alert, oriented x 3, equal unlabored respirations, skin warm/dry/pink. 13:00 Reassessment: Patient appears in no apparent distress at this time. Patient and/or ph family updated on plan of care and expected duration. Pain level reassessed. Patient is alert, oriented x 3, equal unlabored respirations, skin warm/dry/pink. 14:31 Reassessment: Patient appears in no apparent distress at this time. Patient and/or ph family updated on plan of care and expected duration. Pain level reassessed. Patient is alert, oriented x 3, equal unlabored respirations, skin warm/dry/pink. Report faxed to 2nd floor. Vital Signs: 09:15 BP 141 / 107; Pulse 96; Resp 17; Temp 98; Pulse Ox 97% ; Weight 92.53 kg; Height 5 ft. ll1 5 in. ; Pain 10/10; 10:30 BP 116 / 75; Pulse 78; Resp 18; Pulse Ox 94% on 2 lpm NC; ph 11:30 BP 117 / 77; Pulse 74; Resp 18; Pulse Ox 96% on 2 lpm NC; ph 12:30 BP 115 / 90; Pulse 76; Resp 18; Pulse Ox 95% on R/A; ph 14:00 BP 130 / 79; Pulse 73; Resp 18; Temp 97.5; Pulse Ox 95% on R/A; ph 09:15 Body Mass Index 33.95 (92.53 kg, 165.1 cm) ll1 09:15 Pain Scale: Adult ll1 Helio Coma Score: 09:20 Eye Response: spontaneous(4). Motor Response: obeys commands(6). Verbal Response: ph oriented(5). Total: 15. 10:30 Eye Response: to voice(3). Modifying Factors: Medicated. Motor Response: obeys ph commands(6). Verbal Response: oriented(5). Total: 14. 11:30 Eye Response: to voice(3). Modifying Factors: Medicated. Motor Response: obeys ph commands(6). Verbal Response: oriented(5). Total: 14. 12:30 Eye Response: spontaneous(4). Motor Response: obeys commands(6). Verbal Response: ph oriented(5). Total: 15. 14:00 Eye Response: spontaneous(4). Motor Response: obeys commands(6). Verbal Response: ph oriented(5). Total: 15. Trauma Score (Adult): 09:20 Eye Response: spontaneous(1); Verbal Response: oriented(1); Motor Response: obeys ph commands(2); Systolic BP: > 89 mm Hg(4); Respiratory Rate: 10 to 29 per min(4); Eola Score: 15; Trauma Score: 12 10:30 Eye Response: to voice(0); Verbal Response: oriented(1); Motor Response: obeys ph commands(2); Systolic BP: > 89 mm Hg(4); Respiratory Rate: 10 to 29 per min(4); Helio Score: 14; Trauma Score: 11 11:30 Eye Response: to voice(0); Verbal Response: oriented(1); Motor Response: obeys ph commands(2); Systolic BP: > 89 mm Hg(4); Respiratory Rate: 10 to 29 per min(4); Eola Score: 14; Trauma Score: 11 12:30 Eye Response: spontaneous(1); Verbal Response: oriented(1); Motor Response: obeys ph commands(2); Systolic BP: > 89 mm Hg(4); Respiratory Rate: 10 to 29 per min(4); Eola Score: 15; Trauma Score: 12 14:00 Eye Response: spontaneous(1); Verbal Response: oriented(1); Motor Response: obeys ph commands(2); Systolic BP: > 89 mm Hg(4); Respiratory Rate: 10 to 29 per min(4); Helio Score: 15; Trauma Score: 12 ED Course: 09:10 Patient arrived in ED. ec2 09:10 Isidoro Pastrana MD is Attending Physician. ec2 09:10 Arm band placed on Patient placed in an exam room, on a stretcher. ll1 09:14 Roula Navarro, CARLO is Primary Nurse. ph 09:19 Triage completed. ll1 09:26 CXR XRAY In Process Unspecified. EDMS 09:39 EKG done, by ED staff, reviewed by Isidoro Pastrana MD. cc6 09:41 Initial lab(s) drawn, by wv, sent to lab. T\T\S collected, blood band applied to patient. ph Inserted saline lock: 18 gauge in right antecubital area, using aseptic technique. Blood collected. Flushed with 10 mL NS. 09:47 CT Traumagram (Head C Spine CAP W Con) In Process Unspecified. EDMS 10:00 Patient has correct armband on for positive identification. Pulse ox on. NIBP on. ph 10:42 Saleem Castorena MD is Hospitalizing Provider. ec2 14:18 No provider procedures requiring assistance completed. Patient admitted, IV remains in ph place. 14:18 Patient maintains SpO2 saturation greater than 95% on room air. Thermoregulation: warm ph blanket given to patient. Administered Medications: 09:41 Drug: Droperidol IVP 1.25 mg IVP once Route: IVP; Site: right antecubital; ph 10:00 Follow up: Response: No adverse reaction; Pain is decreased; RASS: Light sedation (-2) ph 09:41 Drug: diphenhydrAMINE IVP 12.5 mg IVP once Route: IVP; Site: right antecubital; ph 10:00 Follow up: Response: No adverse reaction ph 09:41 Drug: Ketorolac IVP 15 mg IVP once Route: IVP; Site: right antecubital; ph 10:15 Follow up: Response: No adverse reaction ph 09:41 Drug: Lidoderm Topical Patch 5 % (700 mg/patch) 1 patches Topical once; leave on for 12 ph hours; cover most painful area; may cut into smaller pieces Route: Topical; Site: affected area; 10:00 Follow up: Response: No adverse reaction ph Medication: 14:18 VIS not applicable for this client. ph Intake: 10:15 PO: 0ml; Total: 0ml. ph Output: 10:15 Urine: 200ml (Voided); Total: 200ml. ph Outcome: 10:42 Decision to Hospitalize by Provider. ec2 15:09 Patient left the ED. ph 15:09 Admitted to Med/surg accompanied by tech, via wheelchair, with chart, ph 15:09 Condition: good 15:09 Instructed on the need for admit, 15:09 Patient's length of stay in the Emergency Department was greater than 2 hours. awaiting ph room assignmentPatient's length of stay extended due to Signatures: Dispatcher [employer] EDMT Roula Navarro RN RN ph Chandler Arita RN RN 1 Isidoro Pastrana MD MD ec2 Lauryn Strange, RN RN cc6
--- NOTE | 2024-04-10 10:43 | EDPHYS ---
Physician Documentation [facility] Name: Dwayne Walker Jr Age: 53 yrs Sex: Male : 1970 Arrival Date: 04/10/2024 Time: 09:08 Bed 19 Private MD: ED Physician Isidoro Pastrana HPI: 04/10 09:13 This 53 yrs old Male presents to ER via Unassigned with complaints of Fall ec2 Injury, Back Injury. 09:13 Patient arrives today for evaluation of her ground-level fall. States that he has some ec2 alcoholic beverages and subsequently fell and injured his right back. Patient planing of right lateral rib pain. Patient reports no loss of consciousness, is on Xarelto. Patient reports no prodromal symptoms.. Historical: - Allergies: 09:15 No Known Drug Allergies; ll1 - PMHx: 09:15 Anxiety; Borderline Diabetes; bowl obstruction (Umbilical hernia); Pulmonary Embolism; ll1 DVT; Enlarged Heart (Umbilical hernia); HEP C; Major Depressive Disorder; Hypertension; Umbilical hernia; - PSHx: 09:15 hernia; Leg surgery; ll1 - Immunization history:: Adult Immunizations up to date. - Immunization history: Last tetanus immunization: unknown. - Infectious Disease History:: Denies. - Social history:: Smoking status: Patient denies any tobacco usage or history of. ROS: 09:13 Constitutional: as per hpi ec2 Exam: 09:13 Constitutional: GEN: No acute distress HEENT: -Head: no deformities -Eyes: EOMI CV: ec2 regular rate LUNGS: no respiratory distress ABD: Abdominal tenderness appreciated. SKIN: no wounds appreciated MSK: No C/T/L spine deformities, right lateral rib TTP with overlying ecchymosis. RUE w/o bony deformity LUE w/o bony deformity RLE w/o bony deformity LLE w/o bony deformity NEURO: moves all extremities equally, GCS 15 (E4, V5, M6) Vital Signs: 09:15 BP 141 / 107; Pulse 96; Resp 17; Temp 98; Pulse Ox 97% ; Weight 92.53 kg; Height 5 ft. ll1 5 in. ; Pain 10/10; 10:30 BP 116 / 75; Pulse 78; Resp 18; Pulse Ox 94% on 2 lpm NC; ph 11:30 BP 117 / 77; Pulse 74; Resp 18; Pulse Ox 96% on 2 lpm NC; ph 12:30 BP 115 / 90; Pulse 76; Resp 18; Pulse Ox 95% on R/A; ph 14:00 BP 130 / 79; Pulse 73; Resp 18; Temp 97.5; Pulse Ox 95% on R/A; ph 09:15 Body Mass Index 33.95 (92.53 kg, 165.1 cm) ll1 09:15 Pain Scale: Adult ll1 Hollywood Coma Score: 09:20 Eye Response: spontaneous(4). Motor Response: obeys commands(6). Verbal Response: ph oriented(5). Total: 15. 10:30 Eye Response: to voice(3). Modifying Factors: Medicated. Motor Response: obeys ph commands(6). Verbal Response: oriented(5). Total: 14. 11:30 Eye Response: to voice(3). Modifying Factors: Medicated. Motor Response: obeys ph commands(6). Verbal Response: oriented(5). Total: 14. 12:30 Eye Response: spontaneous(4). Motor Response: obeys commands(6). Verbal Response: ph oriented(5). Total: 15. 14:00 Eye Response: spontaneous(4). Motor Response: obeys commands(6). Verbal Response: ph oriented(5). Total: 15. Trauma Score (Adult): 09:20 Eye Response: spontaneous(1); Verbal Response: oriented(1); Motor Response: obeys ph commands(2); Systolic BP: > 89 mm Hg(4); Respiratory Rate: 10 to 29 per min(4); Hollywood Score: 15; Trauma Score: 12 10:30 Eye Response: to voice(0); Verbal Response: oriented(1); Motor Response: obeys ph commands(2); Systolic BP: > 89 mm Hg(4); Respiratory Rate: 10 to 29 per min(4); Hollywood Score: 14; Trauma Score: 11 11:30 Eye Response: to voice(0); Verbal Response: oriented(1); Motor Response: obeys ph commands(2); Systolic BP: > 89 mm Hg(4); Respiratory Rate: 10 to 29 per min(4); Helio Score: 14; Trauma Score: 11 12:30 Eye Response: spontaneous(1); Verbal Response: oriented(1); Motor Response: obeys ph commands(2); Systolic BP: > 89 mm Hg(4); Respiratory Rate: 10 to 29 per min(4); Helio Score: 15; Trauma Score: 12 14:00 Eye Response: spontaneous(1); Verbal Response: oriented(1); Motor Response: obeys ph commands(2); Systolic BP: > 89 mm Hg(4); Respiratory Rate: 10 to 29 per min(4); Helio Score: 15; Trauma Score: 12 MDM: 09:10 Patient medically screened. ec2 09:13 Data reviewed: vital signs. ED course: Patient arrives today for evaluation of right ec2 back pain. Examination remarkable for MSK findings as above. Will obtain CT chest, abdomen, pelvis to eval for traumatic injury. Will also obtain CT scan of the head and C-spine given the patient's alcohol use today. Differential includes intracranial brain bleed, C-spine fracture, rib fractures,. 09:31 ED course: EKG independently reviewed and interpreted by me, shows normal sinus rhythm, ec2 rate of 99, no acute ST segment elevations, intervals are nonactionable. . 10:16 ED course: Metabolic profile shows slight hypokalemia with potassium of 3.2. Alcohol ec2 level at 226. Liver profile is nonactionable. CT imaging shows right sided posterior rib fractures including ribs 10, 11, 12. . 10:42 ED course: I discussed the case with surgery who will consult, discussed case with ec2 hospitalist will admit patient primarily. Patient updated guarded plan of care and agreeable.. 04/10 09:12 Order name: Basic Metabolic Panel; Complete Time: 10:15 ec2 04/10 09:12 Order name: CBC with Diff; Complete Time: 10:00 ec2 04/10 09:12 Order name: ETOH Level; Complete Time: 10:15 ec2 04/10 09:12 Order name: Hepatic Function; Complete Time: 10:15 ec2 04/10 09:12 Order name: Lipase; Complete Time: 10:15 ec2 04/10 09:12 Order name: Type And Screen; Complete Time: 10:31 ec2 04/10 14:00 Order name: CBC with Automated Diff EDMS 04/10 14:00 Order name: CBC with Automated Diff EDMS 04/10 14:00 Order name: Comprehensive Metabolic Panel EDMS 04/10 14:00 Order name: Comprehensive Metabolic Panel EDMS 04/10 14:00 Order name: Creatine Phosphokinase EDMS 04/10 14:00 Order name: Creatine Phosphokinase EDMS 04/10 14:00 Order name: Creatine Phosphokinase EDMS 04/10 14:00 Order name: Creatine Phosphokinase EDMS 04/10 14:00 Order name: Lipid Profile EDMS 04/10 14:00 Order name: Lipid Profile EDMS 04/10 14:00 Order name: Protime (+INR) EDMS 04/10 14:00 Order name: Protime (+INR) EDMS 04/10 14:00 Order name: PTT, Activated Partial Thromb EDMS 04/10 14:00 Order name: PTT, Activated Partial Thromb EDMS 04/10 14:00 Order name: Troponin High Sensitivity EDMS 04/10 14:00 Order name: Troponin High Sensitivity EDMS 04/10 14:00 Order name: Troponin High Sensitivity EDMS 04/10 09:12 Order name: CT Traumagram (Head C Spine CAP W Con); Complete Time: 10:15 ec2 04/10 09:15 Order name: CXR XRAY; Complete Time: 10:00 ec2 04/10 09:12 Order name: EKG; Complete Time: 09:12 ec2 04/10 14:00 Order name: CONS Physician Consult EDOR 04/10 09:12 Order name: EKG - Nurse/Tech; Complete Time: 09:41 ec2 04/10 09:12 Order name: IV Saline Lock; Complete Time: 09:41 ec2 04/10 09:12 Order name: Labs collected and sent; Complete Time: 09:41 ec2 04/10 09:12 Order name: NPO; Complete Time: 09:41 ec2 04/10 09:12 Order name: O2 Per Protocol; Complete Time: 09:42 ec2 04/10 09:12 Order name: O2 Sat Monitoring; Complete Time: 09:42 ec2 Administered Medications: 09:41 Drug: Droperidol IVP 1.25 mg IVP once Route: IVP; Site: right antecubital; ph 10:00 Follow up: Response: No adverse reaction; Pain is decreased; RASS: Light sedation (-2) ph 09:41 Drug: diphenhydrAMINE IVP 12.5 mg IVP once Route: IVP; Site: right antecubital; ph 10:00 Follow up: Response: No adverse reaction ph 09:41 Drug: Ketorolac IVP 15 mg IVP once Route: IVP; Site: right antecubital; ph 10:15 Follow up: Response: No adverse reaction ph 09:41 Drug: Lidoderm Topical Patch 5 % (700 mg/patch) 1 patches Topical once; leave on for 12 ph hours; cover most painful area; may cut into smaller pieces Route: Topical; Site: affected area; 10:00 Follow up: Response: No adverse reaction ph Disposition Summary: 04/10/24 10:42 Hospitalization Ordered Notes: Hospitalization Status: Inpatient Admission ec2 Provider: Saleem Castorena ec2 Condition: Stable ec2 Problem: new ec2 Symptoms: have improved ec2 Bed/Room Type: Standard ec2 Location: Telemetry/MedSurg (Inpatient)(04/10/24 14:08) ja1 Room Assignment: [facility](04/10/24 14:08) [facility] Diagnosis - Multiple fractures of ribs, right side ec2 Forms: - Medication Reconciliation Form ec2 - SBAR form ec2 - Leadership Thank You Letter ec2 Signatures: Dispatcher [employer] EDCorazon Schwab Patricia, RN RN Zack Contreras RN RN ja1 Chandler Arita RN RN ll1 Isidoro Pastrana MD MD ec2 Corrections: (The following items were deleted from the chart) 09:12 09:12 BASIC METABOLIC PANEL+C.LAB.BRZ ordered. EDMS EDMS 09:12 09:12 CBC+H.LAB.BRZ ordered. EDMS EDMS 09:12 09:12 ETHANOL+C.LAB.BRZ ordered. EDMS EDMS 09:12 09:12 HEPATIC FUNCTION+C.LAB.BRZ ordered. EDMS EDMS 09:12 09:12 LIPASE+C.LAB.BRZ ordered. EDMS EDMS 09:12 09:12 TYPE AND SCREEN+BB.LAB.BRZ ordered. EDMS EDMS 12:56 10:42 Telemetry/MedSurg (Inpatient) ec2 bd 12:56 10:42 ec2 bd 14:08 12:56 BR ER HOLD bd ja1 14:08 12:56 ERHOLD- bd ja1
[2024-04-10] MEDS ORDERED: ACETAMINOPHEN 500 MG TAB PO PRN (13:52)
[2024-04-10] MEDS ORDERED: ONDANSETRON 4 MG/2 ML VIAL IV PRN (13:52)
[2024-04-10] MEDS ORDERED: MORPHINE 2 MG/ML SYR IV PRN (13:52)
[2024-04-10] MEDS: NA CHLORIDE 0.9% 1,000 ML IV SCH (14:00)
[2024-04-10] MEDS: HYDROCODONE/APAP 10/325 TAB PO PRN (16:13)
--- NOTE | 2024-04-10 17:09 | CON ---
Date of Consultation: 04/10/2024 Reason For Service: Multiple rib fractures. History Of Present Illness: This is a case of a 53-year-old patient. He says he was in his room. Nida greene was doing great and then after that he just tripped and hit the nightstand with the right chest reg ion. He developed pain and decided to come to the ER. He was diagnosed with multiple rib fractures. He has been having few drinks on that day. He denies any loss of consciousness. Denies any dizzin ess. He is on chronic Xarelto for his history of DVTs. He denies once again any headache at this mo ment. Denies any shortness of breath, any chest pain other than the tenderness on the ribcage area. No abdominal pain. No dysuria, hematuria, hematochezia, melena. Review of Systems: 10 points are otherwise unremarkable. Past Medical History: Umbilical hernias, leg surgery. Past medical history includes anxiety, diabet es, pulmonary emboli, cardiomegaly, hepatitis, depression, hypertension. Social History: He does not smoke. Drinks alcohol occasionally. Family History: Noncontributory. Physical Examination: Vital Signs: Reviewed. General: The patient is awake, alert, cooperative. HEENT: Pupils are equal and reactive, anicteric. Tongue midline. Nose nontender. Mandible stable. Neck: Supple. No pinpoint tenderness. No step-off. Chest: Bilateral breath sounds. Heart: S1, S2. Musculoskeletal: On the right ribcage, he has multiple areas of tenderness. No open wounds. No cre pitus. No hematoma seen. No gross deformity. Abdomen: Soft and depressible. No guarding or rebound. No peritoneal signs. Pelvis: Stable. Genitalia: Deferred. Extremities: Full range of motion x4. No sensory deficit. Peripheral pulses are still present. Cr anial nerves 2-12 are grossly within normal limits. Back: No step-off. No pinpoint tenderness. Laboratory Data: Blood work shows WBC count of 7.8, hemoglobin of 14.5, and platelets of 394. Potas sium 3.2, bicarb is 19, creatinine is 0.7. Total bilirubin of 0.5. Lipase 23. CT scan of the C-spi ne, head, chest, abdomen, and pelvis shows CT without any intracranial hemorrhage. C-spine, no fract ure, no subluxation. CT of the chest, abdomen, and pelvis shows mild displaced posterior right rib f ractures 10, 11, and 12. No pneumothorax. No hemothorax. Assessment: This is a 53-year-old patient with 3 rib fractures, status post fall. He said that it w as just an accident. The patient will be admitted for observation and pain control. We recommend in centive spirometry. Once again, we discussed with him ways how to diminish the chance of falling in the future including making sure that the house is probably set up. We will follow the patient with you and give more recommendations as the case develops. SHARON/PATRICK Voice ID: [id number] Report ID: [id number]
[2024-04-10] MEDS: MORPHINE 2 MG/ML SYR IV PRN (18:03)
[2024-04-10 19:38] VITALS: BMI 33.9
[2024-04-11] MEDS: TRAZODONE 50 MG TABLET PO SCH (00:31)
[2024-04-11 06:14] LABS: Absolute Basophils 0.1 K/uL (0-0.5); Absolute Eosinophils 0.2 K/uL (0-0.5); Absolute Lymphocytes (CBC) 1.3 K/uL (0.7-4.9); Absolute Monocytes 0.7 K/uL (0.1-1.3); Absolute Neutrophil 4.8 K/uL (1.8-8.0); Basophils % 1.1 % (0-1.3); Eosinophils % 2.7 % (0-4.4); Hematocrit 39.8 % (39.6-49.0); Hemoglobin 13.2 g/dL (13.6-17.9); Lymphocytes % 17.9 % (15.3-44.8); MCH 30.5 pg (27.0-35.0); MCHC 33.3 g/dL (32.0-36.0); MCV 91.6 fL (80-100); MPV 6.9 fL (7.6-11.3); Monocytes % 9.9 % (3.3-12.3); Neutrophils % 68.4 % (41.7-73.7); Nucleated Red Blood Cells % 0.1 % (0-0); Platelets 342 thou/uL (152-406); RBC Red Blood Cell Count 4.34 M/uL (4.33-5.43); Red Cell Distribution Width 14.4 % (12.1-15.2)
[2024-04-11 06:20] LABS: PT Prothrombin Time 12.3 SECONDS (9.4-12.5); PTT, Activated Partial Thromb 33.9 SECONDS (24.3-36.9); Protime INR 1.1
[2024-04-11 06:31] LABS: Albumin/Globulin Ratio 0.7 (1.1-1.8); Anion Gap 10.5 mEq/L (5.0-15.0); Bilirubin Total 0.5 mg/dL (0.2-1.0); Globulin 4.3 g/dL (2.3-3.5); Potassium 3.5 mEq/L (3.5-5.1); Protein, Total 7.3 g/dL (6.4-8.2)
[2024-04-11] MEDS: ATORVASTATIN 20 MG TAB PO SCH (07:58)
[2024-04-11] MEDS: hydrOXYzine HCL 25 MG TAB PO SCH (07:58)
[2024-04-11] MEDS: GABAPENTIN 400 MG CAP PO SCH (07:58)
[2024-04-11] MEDS ORDERED: TRAZODONE 50 MG TABLET PO SCH (09:00)
--- NOTE | 2024-04-11 09:14 | P.PN ---
Date of Service: 04/11/24 Subjective Tractable pain rib fractures Encourage ICS for right rib pain Plan to ambulate with PT to eval for DME Review of Systems 10-point ROS is otherwise unremarkable Physical Examination - Vital Signs reviewed - Physical Exam General: Alert, Oriented x3, generalized weakness HEENT: Atraumatic, Normocephalic Neck: Supple Respiratory: Clear to auscultation bilaterally, Normal air movement, right rib pain, Cardiovascular: Regular rate/rhythm, Normal S1 S2 Capillary refill: <2 Seconds Gastrointestinal: Soft and benign, W/out hepatosplenomegaly, No ascites Musculoskeletal: No clubbing, No swelling Integumentary: No rashes, No breakdown Neurological: Normal speech, Normal strength at 5/5 x4 extr, Cranial nerves 3-12 intact, Lymphatics: No axilla or inguinal lymphadenopathy Assessment and Plan - Plan Fall Intractable pain Right rib pain Fall precautions, as needed analgesics CT CT imaging shows right sided posterior rib fractures including ribs 10, 11, 12. O2 2 L keep sats greater than 90% Surgery consulted Dr. Doty status post fall PT eval for DME need EtOH use Elevated alcohol level Atarax, Anxiety Depression Hypertension Resume appropriate home meds History of a DVT History of PE On Xarelto for chronic anticoagulation Hypokalemia Mild hyponatremia Trend electrolytes replace. Diabetes unknown control Accu-Cheks, sliding scale insulin GI/DVT prophylaxis Advanced directive full code Discharge Plan: Home Plan to discharge in: 48 Hours - Advance Directives Does patient have a Living Will: No Does patient have a Durable POA for Healthcare: No - Code Status/Comfort Care Code Status: Full Code Time Spent Managing Pts Care (In Minutes): 35
--- NOTE | 2024-04-11 09:20 | P.DS ---
Admission Date: 04/11/24 Discharge Date: 04/12/24 Disposition: ROUTINE DISCHARGE Discharge Condition: GOOD Brief History of Present Illness: 53-year-old male with hypertension/DM/multiple DVTs and recent pulmonary embolism on Xarelto presented to the emergency room after fall. Reports right rib pain, noted elevated alcohol level,, history of anxiety history of PE, on Xarelto, Atarax given for anxiety. History of alcohol use, fall precaution, monitor for for DTs, admitted for further evaluation, surgery consulted. - Physical Exam General: Alert, In no apparent distress, Oriented x3 HEENT: Atraumatic, Normocephalic Neck: Supple Respiratory: Normal air movement Cardiovascular: No edema, Normal pulses, Regular rate/rhythm, Normal S1 S2 Capillary refill: <2 Seconds Gastrointestinal: Soft and benign, rib cage tenderness (mild/minimal) Musculoskeletal: No clubbing, No swelling Integumentary: No rashes Neurological: Normal speech, Normal tone, Normal affect Lymphatics: No axilla or inguinal lymphadenopathy Hospital Course: 53-year-old male with hypertension/DM/multiple DVTs and recent pulmonary embolism on Xarelto presented to the emergency room after fall. Reports right rib pain, noted elevated alcohol level,, history of anxiety history of PE, on Xarelto, plan to admit for further evaluation, surgery to eval, Atarax given for anxiety. History of alcohol use, fall precaution, monitor for for DTs, patient is tolerating diet, stable to discharge home, follow-up with primary care in 1 to 2 weeks Assessment Fall, right rib pain-as needed analgesia, encourage ICS for deep breathing History of prior rib fractures-PT to eval for ambulation DME needs, request rolling walker, order plan Chronic anticoagulation-continue home medication History of PE, DVT Alcohol use-thiamine, folic acid, multivitamin, Librium Educate on alcohol cessation Continue home medicines as previously prescribed GOAL: Clear understanding of disease process INSTRUCTIONS: Physician Discharge Instructions: -Follow-up with PCP in 1 to 2 weeks -Please call Dr. Castorena at [phone] if any questions regarding hospital stay -Please call nursing station at [phone] if any nursing or medication questions -Return to the emergency room if symptoms worsen Diet: ADA, low sodium Activity: Fall precautions Vital Signs/Physical Exam: Temp Pulse Resp BP Pulse Ox 97.3 F 69 18 140/95 H 91 04/11/24 08:00 04/11/24 08:00 04/11/24 08:00 04/11/24 08:00 04/11/24 08:00 Laboratory Data at Discharge: WBC 7.10 thou/uL (4.3-10.9) 04/11/24 05:53 Hgb 13.2 g/dL (13.6-17.9) L D 04/11/24 05:53 Hct 39.8 % (39.6-49.0) 04/11/24 05:53 Plt Count 342 thou/uL (152-406) 04/11/24 05:53 PT 12.3 SECONDS (9.4-12.5) 04/11/24 05:53 INR 1.10 04/11/24 05:53 APTT 33.9 SECONDS (24.3-36.9) 04/11/24 05:53 Sodium 140 mEq/L (136-145) D 04/11/24 05:53 Potassium 3.5 mEq/L (3.5-5.1) 04/11/24 05:53 BUN 8 mg/dL (7-18) 04/11/24 05:53 Creatinine 0.65 mg/dL (0.70-1.30) L 04/11/24 05:53 Glucose 149 mg/dL (74-106) H 04/11/24 05:53 Total Bilirubin 0.5 mg/dL (0.2-1.0) 04/11/24 05:53 AST 25 U/L (15-37) 04/11/24 05:53 ALT 28 U/L (16-61) 04/11/24 05:53 Alkaline Phosphatase 101 U/L (45-117) 04/11/24 05:53 Triglycerides 97 mg/dL (<150) 04/11/24 05:53 Cholesterol 132 mg/dL (<200) 04/11/24 05:53 HDL Cholesterol 55 mg/dL (40-60) 04/11/24 05:53 Cholesterol/HDL Ratio 2.40 04/11/24 05:53 Lipase 23 U/L (13-75) 04/10/24 09:35 Home Medications: Atorvastatin Calcium 20 mg PO DAILY 01/25/22 Lisinopril [Zestril] 1 tab PO DAILY 01/25/22 hydrOXYzine HCL [Atarax*] 25 mg PO DAILY 02/02/23 Famotidine 40 mg PO DAILY 02/21/24 Sertraline [Zoloft*] 100 mg PO DAILY 02/21/24 Albuterol Inhaler [Ventolin Inhaler*] 1 puff IN DAILYPRN PRN 04/10/24 Empagliflozin/Linagliptin [Glyxambi 10 mg-5 mg Tablet] 1 tab PO DAILY 04/10/24 Furosemide [Lasix*] 20 mg PO BID 04/10/24 Gabapentin [Neurontin] 800 mg PO DAILY 04/10/24 Hydrocodone Bit/Acetaminophen [Hydrocodon-Acetaminoph 7.5-325] 10 mg PO Q6HP PRN 04/10/24 Rivaroxaban [Xarelto*] 20 mg PO DAILY 04/10/24 Trazodone [Desyrel*] 100 mg PO BEDTIME 04/10/24 Oxycodone HCl/Acetaminophen [Percocet 5-325 mg Tablet] 1 each PO DAILY PRN #14 tab 04/12/24 hydrOXYzine HCL [Atarax*] 25 mg PO DAILY 30 Days #30 tab 04/12/24 New Medications: hydrOXYzine HCL [Atarax*] 25 mg PO DAILY 30 Days #30 tab Oxycodone HCl/Acetaminophen [Percocet 5-325 mg Tablet] 1 each PO DAILY PRN #14 tab PRN Reason: breakthrough pain Physician Discharge Instructions: 53-year-old male with hypertension/DM/multiple DVTs and recent pulmonary embolism on Xarelto presented to the emergency room after fall. Reports right rib pain, noted elevated alcohol level,, history of anxiety history of PE, on Xarelto, plan to admit for further evaluation, surgery to eval, Atarax given for anxiety. History of alcohol use, fall precaution, monitor for for DTs, patient is tolerating diet, stable to discharge home, follow-up with primary care in 1 to 2 weeks Assessment Fall, right rib pain-as needed analgesia, encourage ICS for deep breathing History of prior rib fractures Chronic anticoagulation History of PE, DVT Alcohol use Educate on alcohol cessation Continue home medicines as previously prescribed GOAL: Clear understanding of disease process INSTRUCTIONS: Physician Discharge Instructions: -Follow-up with PCP in 1 to 2 weeks -Please call Dr. Castorena at [phone] if any questions regarding hospital stay -Please call nursing station at [phone] if any nursing or medication questions -Return to the emergency room if symptoms worsen Diet: ADA, low sodium Walker was ordered from [facility] (04/11) and is ready for parts picker after discharge [facility] [id number] [place] [address] Shower chair was also ordered from [facility] (04/12), pending insurance approval. Diet: AHA Activity: Fall precautions Time spent managing pt's care (in minutes): 55
--- NOTE | 2024-04-11 11:42 | P.PN ---
Subjective Date of Service: 04/11/24 Chief Complaint: s/p fall , multiple rib fx Subjective: Tolerating diet, Improving Review of Systems Respiratory: As per HPI Cardiovascular: Unremarkable (tender rib cage) Integumentary: Unremarkable Neurological: Unremarkable Physical Examination - Vital Signs Temperature: 97.3 F Blood Pressure: 140/95 Pulse: 69 Respirations: 18 Pulse Ox (%): 91 - Physical Exam General: Alert, Oriented x3, Cooperative HEENT: PERRLA, EOMI, Sclerae nonicteric Neck: Supple Respiratory: Clear to auscultation bilaterally Cardiovascular: No edema, Normal pulses Gastrointestinal: Soft and benign, No tenderness, No rebound, No guarding Musculoskeletal: No tenderness (no calf tenderness), Other (Right rib polishing machine tender, no crepitus, no large or expanding hematoma) Integumentary: No rashes, No breakdown, No erythema, No warmth, No cyanosis Neurological: Normal speech Assessment And Plan - Plan pain control ambulation, DVT prophylaxis CXR in am fall precautions Pain control Incentive spirometry
[2024-04-11] MEDS: FENTANYL CITR 100 MCG/2 ML IV PRN (15:41)
--- NOTE | 2024-04-11 17:00 | EKG ---
Test Date: 2024-04-10 Test Time: 09:25:51 Stone Unloader: EDUARDO MEASUREMENT RESULTS: Intervals: Rate: 99 NV: 154 QRSD: 86 QT: 384 QTc: 492 [place]: P: 60 NV: 154 QRS: 26 T: 49 INTERPRETIVE STATEMENTS: Normal sinus rhythm Prolonged QT Abnormal ECG Compared to ECG 01/17/2024 08:08:44 No significant changes Electronically Signed On 04-11-24 16:57:28 CDT by Joey Wallace
--- NOTE | 2024-04-11 17:31 | P.PN ---
Date of Service: 04/11/24 Subjective PT OT to eval for DME needs Encourage ICS for right rib pain Complains of moderate amount of pain, Review of Systems 10-point ROS is otherwise unremarkable Physical Examination - Vital Signs reviewed - Physical Exam General: Alert, Oriented x3, generalized weakness HEENT: Atraumatic, Normocephalic Neck: Supple Respiratory: Clear to auscultation bilaterally, Normal air movement, right rib pain, Cardiovascular: Regular rate/rhythm, Normal S1 S2 Capillary refill: <2 Seconds Gastrointestinal: Soft and benign, W/out hepatosplenomegaly, No ascites Musculoskeletal: No clubbing, No swelling Integumentary: No rashes, No breakdown Neurological: Normal speech, Normal strength at 5/5 x4 extr, Cranial nerves 3-12 intact, Lymphatics: No axilla or inguinal lymphadenopathy Assessment and Plan - Plan Fall Right rib pain Multiple rib fractures Fall precautions, as needed analgesics IV and p.o. CT chest imaging shows right sided posterior rib fractures including ribs 10, 11, 12. O2 2 L keep sats greater than 90% Surgery consulted Dr. Doty status post fall PT to eval for DME needs, encourage ambulation EtOH use Elevated alcohol level Atarax, Educated on alcohol cessation, CIWA protocol Anxiety Depression Hypertension Resume appropriate home meds History of a DVT History of PE On Xarelto for chronic anticoagulation Hypokalemia Mild hyponatremia Trend electrolytes replace. Diabetes unknown control Accu-Cheks, sliding scale insulin GI/DVT prophylaxis Advanced directive full code Discharge Plan: Home Plan to discharge in: 48 Hours - Advance Directives Does patient have a Living Will: No Does patient have a Durable POA for Healthcare: No - Code Status/Comfort Care Code Status: Full Code Time Spent Managing Pts Care (In Minutes): 35
[2024-04-11 19:32] LABS: Specific Gravity 1.029 (1.005-1.030); Sqamous Epithelial <5 /HPF (None Seen); Urine Bacteria None Seen /HPF (<20); Urine Bilirubin NEGATIVE (Negative); Urine Blood Negative (Negative); Urine Clarity Clear (Clear); Urine Color Yellow (Yellow); Urine Culture Reflex Order NOT NEEDED; Urine Glucose 4+ (Over) (Negative); Urine Ketones NEGATIVE (Negative); Urine Micro Reflex YN NO BILL MICROSCOPIC; Urine Mucus Slight /HPF (None Seen); Urine Nitrite NEGATIVE (Negative); Urine Protein TRACE (Negative); Urine RBC <5 /HPF (None Seen); Urine Urobilinogen 1+ (Normal); Urine WBC <5 /HPF (<5); Urine pH 6.5 (5.0-7.0)
[2024-04-12 07:32] LABS: Absolute Basophils 0.1 K/uL (0-0.5); Absolute Eosinophils 0.3 K/uL (0-0.5); Absolute Lymphocytes (CBC) 1.2 K/uL (0.7-4.9); Absolute Monocytes 0.5 K/uL (0.1-1.3); Absolute Neutrophil 3.8 K/uL (1.8-8.0); Eosinophils % 4.7 % (0-4.4); Hematocrit 38.6 % (39.6-49.0); Hemoglobin 12.4 g/dL (13.6-17.9); Lymphocytes % 21.1 % (15.3-44.8); MCH 29.8 pg (27.0-35.0); MCHC 32.1 g/dL (32.0-36.0); MCV 92.7 fL (80-100); MPV 6.7 fL (7.6-11.3); Monocytes % 9.2 % (3.3-12.3); Platelets 274 thou/uL (152-406); RBC Red Blood Cell Count 4.16 M/uL (4.33-5.43); Red Cell Distribution Width 14.4 % (12.1-15.2)
[2024-04-12 07:47] LABS: Albumin 2.7 g/dL (3.4-5.0); Albumin/Globulin Ratio 0.7 (1.1-1.8); Anion Gap 8.5 mEq/L (5.0-15.0); Bilirubin Total 0.4 mg/dL (0.2-1.0); Magnesium 1.9 mg/dL (1.6-2.4); Potassium 3.5 mEq/L (3.5-5.1); Protein, Total 6.7 g/dL (6.4-8.2)
--- NOTE | 2024-04-12 07:53 | RAD REPORT ---
EXAM DESCRIPTION: Ashley Pa And Lat (2 Views)04/12/2024 6:33 am CLINICAL HISTORY: Chest pain COMPARISON: April 10, 2024 FINDINGS: Known lower right rib fractures not clearly visualized on this exam. A pneumothorax is not seen. Mild left basilar opacities may represent atelectasis or pneumonia The heart is borderline enlarged
[2024-04-12 09:08] VITALS: O2SAT 93
--- NOTE | 2024-04-12 13:51 | P.PN ---
Subjective Date of Service: 04/12/24 Chief Complaint: s/p fall , multiple rib fx Subjective: Tolerating diet, Improving Review of Systems Respiratory: Unremarkable Cardiovascular: As per HPI Gastrointestinal: Unremarkable Physical Examination - Vital Signs Temperature: 97.5 F Blood Pressure: 158/98 Pulse: 74 Respirations: 17 Pulse Ox (%): 96 - Physical Exam General: Alert, In no apparent distress, Oriented x3, Cooperative HEENT: PERRLA Neck: Supple Respiratory: Normal air movement Cardiovascular: No edema - Studies Imagings Data: CXR: no ptx Assessment And Plan - Plan ambulation, DVT prophylaxis fall precautions Pain control Incentive spirometry
[2024-04-12] MEDS: LIDOCAINE 5% OINT 30 GM TUBE TOP ONE (14:59)
[2024-04-12 16:22] VITALS: BP 155/97; TEMP 97
[2024-04-12] MEDS ORDERED: TRAZODONE 50 MG TABLET PO SCH (21:00)
== END 2024-04-12 16:41 | disposition home or self-care (01) | DRG 184 ==
LOC: ER 09:08 → ERHOLD 13:52 → 2ND 14:20 → OBSVTOIN 04-11 14:58
PROVIDERS: ADMIT Hospitalist; ATTEND Hospitalist
DX: S22.41XA Multiple fractures of ribs, right side, initial encounter for closed fracture (principal); E87.1 Hypo-osmolality and hyponatremia; I10 Essential (primary) hypertension; E87.6 Hypokalemia; E11.9 Type 2 diabetes mellitus without complications; F41.9 Anxiety disorder, unspecified; F32.A Depression, unspecified; Z79.01 Long term (current) use of anticoagulants; Z86.711 Personal history of pulmonary embolism; Z86.718 Personal history of other venous thrombosis and embolism; W01.0XXA Fall on same level from slipping, tripping and stumbling without subsequent striking against object, initial encounter; Y93.9 Activity, unspecified; Y92.009 Unspecified place in unspecified non-institutional (private) residence as the place of occurrence of the external cause; Y99.9 Unspecified external cause status
CPT/HCPCS: 36415; 70450; 71045; 71046; 71260; 72125; 74177; 80048; 80053; 80061; 80076; 81001; 82077; 82550; 82947; 83690; 83735; 84484; 85025; 85610; 85730; 86850; 86900; 86901; 93005; 94010; 96374; 96375; 97116; 97161; 97530; 99285; G0378; J1200; J2001; J2270; J3010; J7030; Q9967

== ENCOUNTER 2024-05-22 05:02 | Observation (INO) | payer OTHER ==
[2024-05-22] MEDS ORDERED: HYDROCODONE/APAP 10/325 TAB ONE ×2 (05:10→10:11)
[2024-05-22 05:21] LABS: Absolute Basophils 0.1 K/uL (0-0.5); Absolute Eosinophils 0.1 K/uL (0-0.5); Absolute Lymphocytes (CBC) 1.1 K/uL (0.7-4.9); Absolute Monocytes 0.5 K/uL (0.1-1.3); Absolute Neutrophil 4.6 K/uL (1.8-8.0); Basophils % 0.9 % (0-1.3); Eosinophils % 1.1 % (0-4.4); Hematocrit 44.9 % (39.6-49.0); Hemoglobin 14.5 g/dL (13.6-17.9); Lymphocytes % 17.8 % (15.3-44.8); MCHC 32.3 g/dL (32.0-36.0); MCV 93.1 fL (80-100); MPV 6.7 fL (7.6-11.3); Monocytes % 8.6 % (3.3-12.3); Neutrophils % 71.6 % (41.7-73.7); Platelets 244 thou/uL (152-406); RBC Red Blood Cell Count 4.82 M/uL (4.33-5.43); Red Cell Distribution Width 16.1 % (12.1-15.2)
[2024-05-22 05:30] LABS: PT Prothrombin Time 23.6 SECONDS (9.4-12.5); PTT, Activated Partial Thromb 45.5 SECONDS (24.3-36.9); Protime INR 2.15
[2024-05-22 05:40] LABS: Albumin 3.5 g/dL (3.4-5.0); Albumin/Globulin Ratio 0.8 (1.1-1.8); Anion Gap 10.2 mEq/L (5.0-15.0); Bilirubin Direct 0.2 mg/dL (0-0.2); Bilirubin Indirect, Calculated 0.3 mg/dL (0.2-0.8); Bilirubin Total 0.5 mg/dL (0.2-1.0); Globulin 4.5 g/dL (2.3-3.5); Magnesium 1.9 mg/dL (1.6-2.4); Potassium 3.2 mEq/L (3.5-5.1); Troponin High Sensitivity 6.2 pg/mL (<58.9)
--- NOTE | 2024-05-22 07:28 | RAD REPORT ---
EXAM: CT chest angiography with intravenous contrast CLINICAL DATA: 53 years Male CHEST PAIN. TECHNICAL DATA: Following the administration of intravenous contrast, multiple high-resolution axial images of the ch est were performed followed by sagittal and coronal reconstructed images. Coronal oblique, axial, coronal and sagittal MIP images were also performed. The CT study is performed according to ALARA (as low as reasonably achievable) or ALARA/IMAGE GENTLY, with automatic adjustment of mA and/or kV according to patient size. Performed on: 05/22/2024 at 5:26 AM COMPARISONS: CT chest angiography performed on 01/17/2024 FINDINGS: There is satisfactory visualization and contrast opacification of pulmonary arteries. No definite i ntra-arterial filling defects are identified to suggest acute or chronic pulmonary embolism. The thoracic aorta is normal in caliber and contour without evidence of aneurysm or dissection. Lungs are well expanded. There is minimal fibrosis and/or atelectasis in the lung bases similar to th e prior study. There may be trace tree-in-bud opacities in the posterior right lower lobe. No dense airspace consolidation is identified. There are no pleural effusions. There is no pneumothorax. The c entral airways are patent. The ach is resolved the pain was reported a history is a 1 4 The heart is normal in size. There is no pericardial effusion. There is no reflux of contrast into th e hepatic veins to suggest right heart strain.The RV/LV ratio is within normal limits. There is no evidence of hilar, mediastinal or axillary lymphadenopathy. There are mildly displaced fractures of the posterior right 10th, 11th and 12th ribs. The eighth The visualized upper abdominal structures are unremarkable. IMPRESSION: 1. No CT evidence to suggest acute or chronic pulmonary embolism, aortic aneurysm or aortic dissect ion. 2. Mild fibrosis and/or atelectasis in the lung bases similar to the prior study. There may be trac e tree-in-bud opacities in the posterior right lower lobe. 3. Mildly displaced fractures of the posterior right 10th, 11th and 12th ribs. These are new when c ompared to the prior study. Electronically signed by: Sangita Mcwilliams DO 05/22/2024 07:24 AM CDT RP Due to temporary technical issues with the PACS/[employer] reporting system, reports are being pearl d by the in-house radiologist without review as a courtesy to ensure prompt reporting the interpreting radiologist is fully responsible for the content of the report. Transcribed Date/Time: 05/22/2024 7:28 AM
--- NOTE | 2024-05-22 09:59 | ER ---
Nurse's Notes [facility] Name: Dwayne Walker Jr Age: 53 yrs Sex: Male : 1970 Arrival Date: 05/22/2024 Time: 05:02 Bed 5 Private MD: Diagnosis: Pulmonary fibrosis, unspecified;Pneumonia due to other specified bacteria-right lower lobe;Multiple fractures of ribs-subacute;correction (current) use of anticoagulants;Hypoxemia Presentation: 05/22 05:04 Chief complaint: Patient states: I have a hx of blood clots and this feels like that, bm8 bad shortness of breath and cough. Coronavirus screen: Vaccine status: Patient reports receiving the 2nd dose of the covid vaccine. At this time, the client does not indicate any symptoms associated with coronavirus-19. Ebola Screen: Patient negative for fever greater than or equal to 101.5 degrees Fahrenheit, and additional compatible Ebola Virus Disease symptoms Patient denies exposure to infectious person. Patient denies travel to an Ebola-affected area in the 21 days before illness onset. No symptoms or risks identified at this time. Initial Sepsis Screen: Does the patient meet any 2 criteria? HR > 90 bpm. Does the patient have a suspected source of infection? No. Patient's initial sepsis screen is negative. Risk Assessment: Do you want to hurt yourself or someone else? Patient reports no desire to harm self or others. Onset of symptoms is unknown. 05:04 Method Of Arrival: EMS: [facility] bm8 05:04 Acuity: FÉLIX 3 bm8 Triage Assessment: 05:04 Pain: Complains of pain in left lateral anterior chest and left breast Pain currently bm8 is 7 out of 10 on a pain scale. Quality of pain is described as aching, crampy, sharp. EENT: No deficits noted. No signs and/or symptoms were reported regarding the EENT system. Neuro: Level of Consciousness is awake, alert, obeys commands, Oriented to person, place, time, situation, Appropriate for age. Cardiovascular: Reports chest pain, shortness of breath, Heart tones S1 S2 present Capillary refill < 3 seconds in bilateral fingers Clubbing of nail beds is absent Patient's skin is warm and dry. Respiratory: Airway is patent Trachea midline Respiratory effort is even, unlabored, Respiratory pattern is regular, symmetrical, Breath sounds are clear bilaterally. GI: No signs and/or symptoms were reported involving the gastrointestinal system. : No signs and/or symptoms were reported regarding the genitourinary system. Musculoskeletal: No signs and/or symptoms reported regarding the musculoskeletal system. 05:04 General: Appears distressed, uncomfortable, Behavior is cooperative, appropriate for bm8 age, anxious. Derm: No signs and/or symptoms reported regarding the dermatologic system. Historical: - Allergies: 05:15 No Known Allergies; bm8 - Home Meds: 05:15 atorvastatin 20 mg Oral tablet [Active]; famotidine 40 mg Oral tablet [Active]; bm8 furosemide 20 mg Oral tablet [Active]; gabapentin 800 mg Oral tablet [Active]; Glyxambi 10-5 mg Oral tablet [Active]; hydrocodone-acetaminophen 7.5-325 mg Oral tablet [Active]; hydroxyzine HCl 25 mg Oral tablet [Active]; lisinopril 40 mg Oral tablet [Active]; sertraline 100 mg Oral tablet [Active]; trazodone 100 mg Oral tablet [Active]; Xarelto 20 mg Oral tablet [Active]; Zoloft 100 mg Oral tablet [Active]; - PMHx: 05:15 Anxiety; Borderline Diabetes; bowl obstruction (Umbilical hernia); DVT; Enlarged Heart bm8 (Umbilical hernia); HEP C; Hypertension; Major Depressive Disorder; Umbilical hernia; Pulmonary Embolism; - PSHx: 05:15 hernia; Leg surgery; bm8 - Immunization history:: Adult Immunizations up to date. - Infectious Disease History:: Denies. - Family history:: not pertinent. - Social history:: Smoking status: Reported history of juuling and/or vaping. Screenin:24 [facility] ED Fall Risk Assessment (Adult) History of falling in the last 3 months, bm8 including since admission No falls in past 3 months (0 pts) Confusion or Disorientation No (0 pts) Intoxicated or Sedated No (0 pts) Impaired Gait No (0 pts) Mobility Assist Device Used No (0 pt) Altered Elimination No (0 pt) Score/Fall Risk Level 0 - 2 = Low Risk Oriented to surroundings, Maintained a safe environment, Educated pt \\T\\ family on fall prevention, incl call for assistance when getting out of bed, Assessed \\T\\ reinforced patient's understanding of fall precautions, Hourly rounding (assess needs \\T\\ fall precautionary measures) done, Used ambulatory aids as needed (educated on \\T\\ assisted with), Used gait belt as appropriate. Abuse screen: Denies threats or abuse. Nutritional screening: No deficits noted. Tuberculosis screening: No symptoms or risk factors identified. Assessment: 06:24 Reassessment: Patient appears in no apparent distress at this time. Patient and/or bm8 family updated on plan of care and expected duration. Pain level reassessed. Patient is alert, oriented x 3, equal unlabored respirations, skin warm/dry/pink. General: Appears in no apparent distress. General: Appears in no apparent distress. comfortable, Behavior is calm, cooperative, appropriate for age. Pain: Complains of pain in left subscapular area, right subscapular area, left mid back and right mid back Pain currently is 7 out of 10 on a pain scale. Quality of pain is described as aching. Neuro: No deficits noted. Level of Consciousness is awake, alert, obeys commands, Oriented to person, place, time, situation, Appropriate for age. Cardiovascular: Capillary refill < 3 seconds in bilateral fingers Patient's skin is warm and dry. Respiratory: Airway is patent Respiratory effort is even, unlabored, Respiratory pattern is regular, symmetrical, pt on 3L NC Breath sounds are diminished bilaterally. GI: No signs and/or symptoms were reported involving the gastrointestinal system. : No signs and/or symptoms were reported regarding the genitourinary system. EENT: No signs and/or symptoms were reported regarding the EENT system. Derm: No signs and/or symptoms reported regarding the dermatologic system. Musculoskeletal: No signs and/or symptoms reported regarding the musculoskeletal system. 08:00 Reassessment: Patient appears in no apparent distress at this time. Patient and/or ph family updated on plan of care and expected duration. Pain level reassessed. Patient is alert, oriented x 3, equal unlabored respirations, skin warm/dry/pink. 11:42 Reassessment: Patient appears in no apparent distress at this time. Patient and/or db family updated on plan of care and expected duration. Pain level reassessed. Patient is alert, oriented x 3, equal unlabored respirations, skin warm/dry/pink. PATIENT PROVIDED WITH FOOD TRAY. Vital Signs: 05:04 BP 155 / 96; Pulse 96; Resp 20; Temp 98.5; Pulse Ox 93% on R/A; Weight 100 kg; Height 5 bm8 ft. 5 in. ; Pain 7/10; 06:24 BP 162 / 93; Pulse 80; Resp 17; Temp 98.5; Pulse Ox 95% on R/A; Pain 7/10; bm8 08:00 BP 156 / 96; Pulse 79; Resp 18; Pulse Ox 97% on R/A; ph 10:26 BP 169 / 97; Pulse 82; Resp 18; Temp 98.1; Pulse Ox 97% on 2 lpm NC; ph 05:04 Body Mass Index 36.69 (100.00 kg, 165.1 cm) bm8 05:04 Pain Scale: Adult bm8 06:24 Pain Scale: Adult bm8 Helio Coma Score: 06:24 Eye Response: spontaneous(4). Motor Response: obeys commands(6). Verbal Response: bm8 oriented(5). Total: 15. ED Course: 05:04 Patient arrived in ED. rv1 05:04 Yadiel Andrade MD is Attending Physician. rt 05:04 Arm band placed on right wrist. bm8 05:09 Jame Atkins, RN is Primary Nurse. bm8 05:15 Triage completed. bm8 05:23 No provider procedures requiring assistance completed. Initial lab(s) drawn, by ED bm8 staff, sent to lab. Inserted saline lock: 20 gauge in right antecubital area, using aseptic technique. Blood collected. Flushed with 10 mL NS. 05:28 CT Chest For PE Angio In Process Unspecified. EDMS 06:24 Patient has correct armband on for positive identification. Placed in gown. Bed in low bm8 position. Call light in reach. Side rails up X 1. Client placed on continuous cardiac and pulse oximetry monitoring. NIBP monitoring applied. security monitor on. Pulse ox on. NIBP on. Door closed. Warm blanket given. Pillow given. Verbal reassurance given. Head of bed elevated. 06:24 Oxygen administration via nasal cannula \\T\\ 3L/min Response to oxygen therapy: symptoms bm8 improved. 07:15 Report given to CARLO SIMMONS. bm8 09:48 Attending Physician role handed off by Yadiel Andrade MD jose 09:48 Chris Olea MD is Attending Physician. jose 09:57 Saleem Castorena MD is Hospitalizing Provider. jose 10:01 Primary Nurse role handed off by Jame Atkins, RN db 10:01 Gail Tejeda, RN is Primary Nurse. db 10:26 Lactate w/ 2H reflex if indic. Sent. ph 10:26 Blood Culture Adult (2) Sent. ph 13:30 Patient admitted, IV remains in place. ph 16:27 1627 CM met with at the bedside in the ED exam room. Patient identified by ane name and . Demographic sheet confirmed. Patient states he lives alone in a single story home. He reports that prior to admission he performs ADLs independently. DME in the home includes a walker, wheelchair, shower chair, and "high rise toilet seat". DME is not being used currently, explains that he still have the DME from when he had a severe, long distance fall and sustained numerous injuries. No HH, no home oxygen or other medical services at this time .His preferred plan is to return home upon discharge. He reports that he has a friend that can transport him home. CM team will continue to follow and coordinate care during this hospital stay. Administered Medications: 05:26 Drug: [place] PO 10 mg-325 mg 1 tabs PO once Route: PO; vc1 07:00 Follow up: Response: No adverse reaction ph 10:25 Drug: LevOfloxacin PO 750 mg PO once Route: PO; ph 11:00 Follow up: Response: No adverse reaction ph 10:25 Drug: [place] PO 10 mg-325 mg 1 tabs PO once Route: PO; ph 11:00 Follow up: Response: No adverse reaction; Pain is decreased; RASS: Alert and Calm (0) ph Medication: 06:24 VIS not applicable for this client. bm8 Outcome: 09:58 Decision to Hospitalize by Provider. jose 13:30 Admitted to ER Hold. Please see [facility] for further documentation. ph 13:30 Condition: stable 13:30 Instructed on the need for admit, 17:45 Patient left the ED. ph Signatures: Dispatcher [employer] Chris Gonzalez MD MD cha Hall, Patricia, RN RN ph Gladys Calvillo RN RN vc1 Gail Tejeda, RN RN db Yadiel Andrade MD MD rt Francine Alvarez rv1 Jame Atkins, RN RN bm8 Dixie Rosado RN RN ane Corrections: (The following items were deleted from the chart) 05:20 05:15 General: Appears distressed, uncomfortable, Behavior is cooperative, appropriate bm8 for age, anxious, bm8 05:20 05:15 Pain: Complains of pain in left lateral anterior chest and left breast Pain bm8 currently is 7 out of 10 on a pain scale. Quality of pain is described as aching, crampy, sharp, bm8 05:20 05:15 EENT: No deficits noted. No signs and/or symptoms were reported regarding the bm8 EENT system. bm8 05:20 05:15 Neuro: Level of Consciousness is awake, alert, obeys commands, Oriented to bm8 person, place, time, situation, Appropriate for age bm8 05:20 05:15 Cardiovascular: Reports chest pain, shortness of breath, Heart tones S1 S2 bm8 present Capillary refill < 3 seconds in bilateral fingers Clubbing of nail beds is absent Patient's skin is warm and dry. bm8 05:20 05:15 Respiratory: Airway is patent Trachea midline Respiratory effort is even, bm8 unlabored, Respiratory pattern is regular, symmetrical, Breath sounds are clear bilaterally. bm8 05:20 05:15 GI: No signs and/or symptoms were reported involving the gastrointestinal system. bm8 bm8 05:20 05:15 : No signs and/or symptoms were reported regarding the genitourinary system. [id number] 05:20 05:15 Derm: No signs and/or symptoms reported regarding the dermatologic system. bm8 bm8 05:20 05:15 Musculoskeletal: No signs and/or symptoms reported regarding the musculoskeletal bm8 system. bm8 07:24 07:24 Report given to CARLO SIMMONS ph ph
--- NOTE | 2024-05-22 09:59 | EDPHYS ---
Physician Documentation [facility] Name: Dwayne Walker Jr Age: 53 yrs Sex: Male : 1970 Arrival Date: 05/22/2024 Time: 05:02 Bed 5 Private MD: ED Physician Chris Olae HPI: 05/22 05:06 This 53 yrs old Male presents to ER via Unassigned with complaints of dyspnea. rt 05:06 Patient presents to the ED with dyspnea since 9 PM last night. Patient reports previous rt history of PEs, reports compliance with Xarelto regimen. States that this dyspnea is consistent with his had prior PEs in the past. Does report of chest pain as well. Denies other acute complaints at this time, symptoms are moderate in severity, no other aggravating or alleviating factors.. Historical: - Allergies: 05:15 No Known Allergies; bm8 - Home Meds: 05:15 atorvastatin 20 mg Oral tablet [Active]; famotidine 40 mg Oral tablet [Active]; bm8 furosemide 20 mg Oral tablet [Active]; gabapentin 800 mg Oral tablet [Active]; Glyxambi 10-5 mg Oral tablet [Active]; hydrocodone-acetaminophen 7.5-325 mg Oral tablet [Active]; hydroxyzine HCl 25 mg Oral tablet [Active]; lisinopril 40 mg Oral tablet [Active]; sertraline 100 mg Oral tablet [Active]; trazodone 100 mg Oral tablet [Active]; Xarelto 20 mg Oral tablet [Active]; Zoloft 100 mg Oral tablet [Active]; - PMHx: 05:15 Anxiety; Borderline Diabetes; bowl obstruction (Umbilical hernia); DVT; Enlarged Heart bm8 (Umbilical hernia); HEP C; Hypertension; Major Depressive Disorder; Umbilical hernia; Pulmonary Embolism; - PSHx: 05:15 hernia; Leg surgery; bm8 - Immunization history:: Adult Immunizations up to date. - Infectious Disease History:: Denies. - Family history:: not pertinent. - Social history:: Smoking status: Reported history of juuling and/or vaping. ROS: 05:06 Constitutional: Negative for fever, chills, and weight loss, Abdomen/GI: Negative for rt abdominal pain, nausea, vomiting, diarrhea, and constipation, MS/Extremity: Negative for injury and deformity, Skin: Negative for injury, rash, and discoloration, Neuro: Negative for headache, weakness, numbness, tingling, and seizure, Psych: Negative for depression, anxiety, suicide ideation, homicidal ideation, and hallucinations, 05:06 Cardiovascular: Positive for chest pain, Negative for edema, 05:06 Respiratory: Positive for shortness of breath, Negative for cough, Exam: 05:06 Constitutional: This is a well developed, well nourished patient who is awake, alert, rt and in no acute distress. Head/Face: Normocephalic, atraumatic. Chest/axilla: Normal chest wall appearance and motion. Nontender with no deformity. No lesions are appreciated. Cardiovascular: Regular rate and rhythm with a normal S1 and S2. No gallops, murmurs, or rubs. Normal PMI, no JVD. No pulse deficits. Respiratory: Lungs have equal breath sounds bilaterally, clear to auscultation and percussion. No rales, rhonchi or wheezes noted. No increased work of breathing, no retractions or nasal flaring. Abdomen/GI: Soft, non-tender, with normal bowel sounds. No distension or tympany. No guarding or rebound. No evidence of tenderness throughout. Skin: Warm, dry with normal turgor. Normal color with no rashes, no lesions, and no evidence of cellulitis. MS/ Extremity: Pulses equal, no cyanosis. Neurovascular intact. Full, normal range of motion. Neuro: Awake and alert, GCS 15, oriented to person, place, time, and situation. Cranial nerves II-XII grossly intact. Motor strength 5/5 in all extremities. Sensory grossly intact. Cerebellar exam normal. Normal gait. 05:06 ECG was reviewed by the Attending Physician. Vital Signs: 05:04 BP 155 / 96; Pulse 96; Resp 20; Temp 98.5; Pulse Ox 93% on R/A; Weight 100 kg; Height 5 bm8 ft. 5 in. ; Pain 7/10; 06:24 BP 162 / 93; Pulse 80; Resp 17; Temp 98.5; Pulse Ox 95% on R/A; Pain 7/10; bm8 08:00 BP 156 / 96; Pulse 79; Resp 18; Pulse Ox 97% on R/A; ph 10:26 BP 169 / 97; Pulse 82; Resp 18; Temp 98.1; Pulse Ox 97% on 2 lpm NC; ph 05:04 Body Mass Index 36.69 (100.00 kg, 165.1 cm) bm8 05:04 Pain Scale: Adult bm8 06:24 Pain Scale: Adult bm8 Helio Coma Score: 06:24 Eye Response: spontaneous(4). Motor Response: obeys commands(6). Verbal Response: bm8 oriented(5). Total: 15. MDM: 05:04 Patient medically screened. rt 05/22 05:05 Order name: Basic Metabolic Panel; Complete Time: 05:41 rt 05/22 05:05 Order name: CBC with Diff; Complete Time: 05:41 rt 05/22 05:05 Order name: LFT's; Complete Time: 05:41 rt 05/22 05:05 Order name: Magnesium; Complete Time: 05:41 rt 05/22 05:05 Order name: NT PRO-BNP; Complete Time: 05:41 rt 05/22 05:05 Order name: Troponin HS; Complete Time: 05:41 rt 05/22 05:05 Order name: PT-INR; Complete Time: 05:41 rt 05/22 05:05 Order name: Ptt, Activated; Complete Time: 05:41 rt 05/22 09:55 Order name: Blood Culture Adult (2) jose 05/22 09:56 Order name: Lactate w/ 2H reflex if indic. jose 05/22 12:04 Order name: CBC with Automated Diff EDMS 05/22 12:04 Order name: CBC with Automated Diff EDMS 05/22 12:04 Order name: Comprehensive Metabolic Panel EDMS 05/22 12:04 Order name: Comprehensive Metabolic Panel EDMS 05/22 12:04 Order name: Protime (+INR) EDMS 05/22 12:04 Order name: Protime (+INR) EDMS 05/22 12:04 Order name: PTT, Activated Partial Thromb EDMS 05/22 12:04 Order name: PTT, Activated Partial Thromb EDMS 05/22 05:05 Order name: CT Chest For PE Angio; Complete Time: 09:48 rt 05/22 05:05 Order name: Cardiac monitoring; Complete Time: 05:22 rt 05/22 05:05 Order name: EKG - Nurse/Tech; Complete Time: 05:22 rt 05/22 05:05 Order name: IV Saline Lock; Complete Time: 05:22 rt 05/22 05:05 Order name: Labs collected and sent; Complete Time: rt 05/22 05:05 Order name: O2 Per Protocol; Complete Time: rt 05/22 05:05 Order name: O2 Sat Monitoring; Complete Time: : rt EC:06 Rate is 87 beats/min. Rhythm is regular, Normal Sinus Rhythm with No ectopy. QRS [place] rt is Normal. DC interval is normal. QRS interval is normal. QT interval is normal. No Q waves. T waves are Normal. No ST changes noted. Administered Medications: 05:26 Drug: [place] PO 10 mg-325 mg 1 tabs PO once Route: PO; vc1 07:00 Follow up: Response: No adverse reaction ph 10:25 Drug: LevOfloxacin PO 750 mg PO once Route: PO; ph 11:00 Follow up: Response: No adverse reaction ph 10:25 Drug: [place] PO 10 mg-325 mg 1 tabs PO once Route: PO; ph 11:00 Follow up: Response: No adverse reaction; Pain is decreased; RASS: Alert and Calm (0) ph Disposition Summary: 05/22/24 09:58 Hospitalization Ordered Notes: Hospitalization Status: Inpatient Admission jose Provider: Saleem Castorena cha Condition: Fair jose Problem: new jose Symptoms: have improved jose Bed/Room Type: Standard jose Location: Telemetry/MedSurg (Inpatient)(05/22/24 16:03) ja1 Room Assignment: 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 EDMS EDMS 05:06 05:05 CBC+H.LAB.BRZ ordered. EDMS EDMS 05:06 05:05 HEPATIC FUNCTION+C.LAB.BRZ ordered. EDMS EDMS 05:06 05:05 MAGNESIUM+C.LAB.BRZ ordered. EDMS EDMS 05:06 05:05 PROBNP+C.LAB.BRZ ordered. EDMS EDMS 05:06 05:05 Troponin High Sensitivity+C.LAB.BRZ ordered. EDMS EDMS 05:06 05:05 PROTIME (+INR)+COAG.LAB.BRZ ordered. EDMS EDMS 05:06 05:05 PTT, ACTIVATED+COAG.LAB.BRZ ordered. EDMS EDMS 05:06 05:06 Chest For PE Angio+CT.RAD.BRZ ordered. EDMS EDMS 13:06 09:58 Telemetry/MedSurg (Inpatient) [facility] bd 13:06 09:58 [facility] bd 16:03 13:06 [facility] ER HOLD bd ja1 16:03 13:06 ERHOLD- bd ja1
[2024-05-22] MEDS ORDERED: levoFLOXacin 750 MG TAB ONE (10:10)
[2024-05-22] MEDS ORDERED: ACETAMINOPHEN 500 MG TAB PO PRN (11:56)
--- NOTE | 2024-05-22 12:05 | P.HP ---
Certification for Inpatient Patient admitted to: Inpatient With expected LOS: >2 Midnights Patient will require the following post-hospital care: None Practitioner: I am a practitioner with admitting privileges, knowledge of patient current condition, hospital course, and medical plan of care. Services: Services provided to patient in accordance with Admission requirements found in Title 42 Section 412.3 of the Code of Federal Regulations Patient History Date of Service: 05/22/24 Reason for admission: Right rib pain History of Present Illness: Patient is a 53-year-old gentleman came to the hospital with shortness of breath. Patient was having pain in his rib cage after he had fallen and broken ribs a few weeks ago. He says he is not feeling any better. He has had some difficulty with his voice as well. He has also had lymphadenopathy. Patient also with hoarseness. Patient complaints of weakness and discomfort so patient came into the ER for further evaluation. Allergies No Known Drug Allergies Allergy (Verified 02/02/23 08:15) Unknown Home Medications: Atorvastatin Calcium 20 mg PO DAILY 01/25/22 Lisinopril [Zestril] 1 tab PO DAILY 01/25/22 Famotidine 40 mg PO DAILY 02/21/24 Sertraline [Zoloft*] 100 mg PO DAILY 02/21/24 Albuterol Inhaler [Ventolin Inhaler*] 1 puff IN DAILYPRN PRN 04/10/24 Empagliflozin/Linagliptin [Glyxambi 10 mg-5 mg Tablet] 1 tab PO DAILY 04/10/24 Furosemide [Lasix*] 20 mg PO BID 04/10/24 Gabapentin [Neurontin] 800 mg PO DAILY 04/10/24 Hydrocodone Bit/Acetaminophen [Hydrocodon-Acetaminoph 7.5-325] 10 mg PO Q6HP PRN 04/10/24 Rivaroxaban [Xarelto*] 20 mg PO DAILY 04/10/24 Trazodone [Desyrel*] 100 mg PO BEDTIME 04/10/24 Albuterol Inhaler [Ventolin Inhaler*] 2 puff IH BID 05/22/24 Hydrocodone Bit/Acetaminophen [[place] 10-325 Tablet] 1 tab PO Q4HP PRN 05/22/24 hydrOXYzine HCL [Atarax*] 25 mg PO TID PRN 05/22/24 - Past Medical/Surgical History Diabetic: No -: Hypertension -: GERD -: Chronic pain secondary to fall injury -: Scoliosis -: Pulmonary embolism/DVT, January 2018 -: Alcohol abuse -: Tobacco abuse -: fell through roof, multiple fractures -: bilateral hip repair -: bilateral leg feet fracture repairs -: lower spine fractures 13 areas Psychosocial/ Personal History: Patient is single. 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 - Family History Mother Medical History: Hypertension Father Medical History: Heart disease - Social History Smoking Status: Former smoker Alcohol use: No CD- Drugs: No Caffeine use: No Review of Systems 10-point ROS is otherwise unremarkable Physical Examination - Vital Signs Temperature: 98 F Blood Pressure: 140/80 Pulse: 80 Respirations: 18 Pulse Ox (%): 95 - Physical Exam General: Alert, In no apparent distress, Oriented x3 HEENT: Atraumatic, PERRLA, Mucous membr. moist/pink, EOMI, Sclerae nonicteric Neck: Supple, 2+ carotid pulse no bruit, No LAD, Without JVD or thyroid abnormality Respiratory: Clear to auscultation bilaterally, Normal air movement Cardiovascular: Regular rate/rhythm, Normal S1 S2, No murmurs Gastrointestinal: Normal bowel sounds, Soft and benign, Non-distended, No tenderness Musculoskeletal: No clubbing, No swelling, No tenderness Integumentary: No rashes Neurological: Normal gait, Normal speech, Normal strength at 5/5 x4 extr, Normal tone, Normal affect Lymphatics: Other (anterior cervical LAD) - Studies Laboratory Data (last 24 hrs) 05/22/24 05/22/24 05/22/24 05:10 05:10 05:10 WBC 6.40 Hgb 14.5 Hct 44.9 Plt Count 244 PT 23.6 H INR 2.15 APTT 45.5 H Sodium 138 Potassium 3.2 L BUN 7 Creatinine 0.75 Glucose 118 H Magnesium 1.9 Total Bilirubin 0.5 AST 23 ALT 25 Alkaline Phosphatase 110 Assessment & Plan - Problems (Diagnosis) (1) Cough Current Visit: No Status: Acute Qualifiers: Cough type: acute Qualified Code(s): R05.1 - Acute cough (2) History of pulmonary embolism Current Visit: No Status: Acute (3) Hypertension Onset Date: 05/15/18 Current Visit: No Status: Acute (4) Rib fractures Current Visit: No Status: Acute (5) Tobacco abuse Onset Date: 05/15/18 Current Visit: No Status: Acute (6) Difficulty breathing Current Visit: Yes Status: Acute (7) Acute bronchitis with COPD Current Visit: Yes Status: Acute - Plan Plan: 1. Continue with albuterol and Atrovent nebs 2. Continue with IV steroids 3. Outpatient pulmonary function testing 4. Pulmonary follow-up if symptoms do not improve 5. Room air O2 sats 6. Repeat chest x-ray in the morning 7. GI and DVT prophylaxis Discharge Plan: Home Plan to discharge in: Greater than 2 days - Advance Directives Does patient have a Living Will: No Does patient have a Durable POA for Healthcare: No - Code Status/Comfort Care Code Status Assessed: Yes Code Status: Full Code Critical Care: No Time Spent Managing PTS Care (In Minutes): 35
[2024-05-22 14:03] VITALS: BMI 36.6
[2024-05-22] MEDS ORDERED: ONDANSETRON 4 MG/2 ML VIAL ONE (16:39)
[2024-05-22] MEDS ORDERED: MORPHINE 2 MG/ML SYR ONE (16:39)
[2024-05-22] MEDS: MORPHINE 2 MG/ML SYR IV PRN (16:45)
[2024-05-22] MEDS: ONDANSETRON 4 MG/2 ML VIAL IV PRN (16:45)
[2024-05-22] MEDS: HYDROCODONE/APAP 10/325 TAB PO PRN (18:09)
[2024-05-22] MEDS ORDERED: INFLUENZA VACCINE (for 6+ mo) 0.5 ML DOSE IMVAC ONE (20:00)
[2024-05-22] MEDS: RIVAROXABAN 20 MG TABLET PO SCH (20:29)
[2024-05-22] MEDS: FAMOTIDINE 20 MG TAB PO SCH (20:29)
[2024-05-22] MEDS: TRAZODONE 50 MG TABLET PO SCH (22:13)
[2024-05-22] MEDS: ALBUTEROL 2.5 MG/3 ML NEB SOL NEB PRN (22:26)
[2024-05-22] MEDS: IPRATROPIUM BROM 0.5MG/2.5ML NEB PRN (22:26)
[2024-05-23 06:39] LABS: Absolute Eosinophils 0.2 K/uL (0-0.5); Absolute Lymphocytes (CBC) 1.1 K/uL (0.7-4.9); Absolute Monocytes 0.5 K/uL (0.1-1.3); Absolute Neutrophil 4.8 K/uL (1.8-8.0); Basophils % 0.7 % (0-1.3); Eosinophils % 3.4 % (0-4.4); Hematocrit 42.7 % (39.6-49.0); Hemoglobin 14.1 g/dL (13.6-17.9); Lymphocytes % 16.5 % (15.3-44.8); MCH 31.1 pg (27.0-35.0); MCHC 32.9 g/dL (32.0-36.0); MCV 94.5 fL (80-100); MPV 7.2 fL (7.6-11.3); Monocytes % 7.8 % (3.3-12.3); Neutrophils % 71.6 % (41.7-73.7); Nucleated Red Blood Cells % 0.1 % (0-0); Platelets 210 thou/uL (152-406); RBC Red Blood Cell Count 4.52 M/uL (4.33-5.43); Red Cell Distribution Width 16.3 % (12.1-15.2)
[2024-05-23 06:42] LABS: PT Prothrombin Time 22.9 SECONDS (9.4-12.5); PTT, Activated Partial Thromb 44.1 SECONDS (24.3-36.9); Protime INR 2.09
[2024-05-23 07:07] LABS: Albumin 3.5 g/dL (3.4-5.0); Albumin/Globulin Ratio 0.8 (1.1-1.8); Anion Gap 8.2 mEq/L (5.0-15.0); Bilirubin Total 0.7 mg/dL (0.2-1.0); Globulin 4.2 g/dL (2.3-3.5); Potassium 4.2 mEq/L (3.5-5.1); Protein, Total 7.7 g/dL (6.4-8.2)
[2024-05-23 09:08] VITALS: O2SAT 95
[2024-05-23 12:28] VITALS: BP 170/90; TEMP 97.6
--- NOTE | 2024-05-23 13:00 | EKG ---
Test Date: 2024-05-22 Test Time: 05:05:11 Surgical Tech: DANIELLE MEASUREMENT RESULTS: Intervals: Rate: 87 DC: 154 QRSD: 96 QT: 404 QTc: 486 Trent: P: 52 DC: 154 QRS: 25 T: 53 INTERPRETIVE STATEMENTS: Normal sinus rhythm Prolonged QT Abnormal ECG Compared to ECG 04/10/2024 09:25:51 No significant changes Electronically Signed On 05-23-24 12:55:28 CDT by Joey Wallace
--- NOTE | 2024-05-23 13:42 | RAD REPORT ---
EXAM: Neck Soft Tissue W/Wo Contr INDICATION: dysarthria; LAD TECHNIQUE: Helical CT examination of the neck with and without IV contrast. Sagittal and coronal refo rmations were generated. This exam was performed according to our departmental dose-optimization program, which includes automated exposure control, adjustment of the mA and/or kV according to patie nt size and/or use of iterative reconstruction technique. COMPARISON: CT 02/04/2023 FINDINGS: Aerodigestive Tract Structures: Enhancement at the posterior oropharynx. No fluid collections or mass es identified. Airways widely patent. Lymph Nodes: No pathologic appearing cervical lymph nodes. Parotid Glands: Normal Submandibular Glands: Normal Thyroid Gland: Normal Included Intracranial Structures: Normal Included Orbits: Normal Paranasal Sinuses: Predominantly clear Tympanomastoid Cavities: Normal Vascular Structures: Normal Osseous Structures: No acute osseous abnormality. Included Lung Apices: Normal IMPRESSION: Mucosal enhancement at the posterior oropharynx would be consistent with pharyngitis. No fluid collec tions identified. Airways widely patent..
--- NOTE | 2024-05-27 23:49 | P.DS ---
Discharge Date: 05/23/24 Disposition: ROUTINE DISCHARGE Discharge Condition: GOOD Reason for Admission: Right rib pain - Problems (1) Cough Status: Acute Qualifiers: Cough type: acute Qualified Code(s): R05.1 - Acute cough (2) History of pulmonary embolism Status: Acute (3) Hypertension Onset Date: 05/15/18 Status: Acute (4) Rib fractures Status: Acute (5) Tobacco abuse Onset Date: 05/15/18 Status: Acute (6) Difficulty breathing Status: Acute (7) Acute bronchitis with COPD Status: Acute Brief History of Present Illness: Patient is a 53-year-old gentleman came to the hospital with shortness of breath. Patient was having pain in his rib cage after he had fallen and broken ribs a few weeks ago. He says he is not feeling any better. He has had some difficulty with his voice as well. He has also had lymphadenopathy. Patient also with hoarseness. Patient complaints of weakness and discomfort so patient came into the ER for further evaluation. Hospital Course: Patient is clinically well. Respiratory status is stable. CT imaging of the chest in the neck was negative. Patient is doing well and stable for discharge home with outpatient follow-up. Vital Signs/Physical Exam: Temp Pulse Resp BP Pulse Ox 97.6 F 75 18 170/90 H 98 05/23/24 12:00 05/23/24 12:00 05/23/24 13:43 05/23/24 12:00 05/23/24 13:43 General: Alert, In no apparent distress, Oriented x3 Laboratory Data at Discharge: WBC 6.70 thou/uL (4.3-10.9) 05/23/24 05:47 Hgb 14.1 g/dL (13.6-17.9) 05/23/24 05:47 Hct 42.7 % (39.6-49.0) 05/23/24 05:47 Plt Count 210 thou/uL (152-406) 05/23/24 05:47 PT 22.9 SECONDS (9.4-12.5) H 05/23/24 05:47 INR 2.09 05/23/24 05:47 APTT 44.1 SECONDS (24.3-36.9) H 05/23/24 05:47 Sodium 137 mEq/L (136-145) 05/23/24 05:47 Potassium 4.2 mEq/L (3.5-5.1) D 05/23/24 05:47 BUN 10 mg/dL (7-18) 05/23/24 05:47 Creatinine 0.75 mg/dL (0.70-1.30) 05/23/24 05:47 Glucose 113 mg/dL (74-106) H 05/23/24 05:47 Magnesium 1.9 mg/dL (1.6-2.4) 05/22/24 05:10 Total Bilirubin 0.7 mg/dL (0.2-1.0) 05/23/24 05:47 AST 22 U/L (15-37) 05/23/24 05:47 ALT 25 U/L (16-61) 05/23/24 05:47 Alkaline Phosphatase 108 U/L (45-117) 05/23/24 05:47 Home Medications: Atorvastatin Calcium 20 mg PO DAILY 01/25/22 Lisinopril [Zestril] 1 tab PO DAILY 01/25/22 Famotidine 40 mg PO DAILY 02/21/24 Sertraline [Zoloft*] 100 mg PO DAILY 02/21/24 Albuterol Inhaler [Ventolin Inhaler*] 1 puff IN DAILYPRN PRN 04/10/24 Empagliflozin/Linagliptin [Glyxambi 10 mg-5 mg Tablet] 1 tab PO DAILY 04/10/24 Furosemide [Lasix*] 20 mg PO BID 04/10/24 Gabapentin [Neurontin] 800 mg PO DAILY 04/10/24 Hydrocodone Bit/Acetaminophen [Hydrocodon-Acetaminoph 7.5-325] 10 mg PO Q6HP PRN 04/10/24 Rivaroxaban [Xarelto*] 20 mg PO DAILY 04/10/24 Trazodone [Desyrel*] 100 mg PO BEDTIME 04/10/24 Albuterol Inhaler [Ventolin Inhaler*] 2 puff IH BID 05/22/24 Hydrocodone Bit/Acetaminophen [[place] 10-325 Tablet] 1 tab PO Q4HP PRN 05/22/24 hydrOXYzine HCL [Atarax*] 25 mg PO TID PRN 05/22/24 Albuterol Neb [Proventil 0.083% Neb Soln] 2.5 mg NEB [id number] PRN #60 amp 10/02/24 Cefdinir [Cefdinir*] 300 mg PO BID #14 cap 05/23/24 Famotidine [Pepcid*] 20 mg PO DAILY #30 tab 05/23/24 Hydrocodone 10/APAP 325 [[place] 10/325*] 1 tab PO Q4H PRN #20 tab 05/23/24 Ipratropium Neb [Atrovent*] 0.5 mg NEB [id number] PRN #60 amp 05/23/24 Nebulizer 1 each MC DAILY #1 ea 05/23/24 Nebulizer Accessories [Aeroneb Go] 1 each MC DAILY #1 ea 05/23/24 New Medications: Nebulizer Accessories [Aeroneb Go] 1 each MC DAILY #1 ea Ipratropium Neb [Atrovent*] 0.5 mg NEB [id number] PRN #60 amp PRN Reason: Shortness Of Breath Cefdinir [Cefdinir*] 300 mg PO BID #14 cap Nebulizer 1 each MC DAILY #1 ea Hydrocodone 10/APAP 325 [[place] 10/325*] 1 tab PO Q4H PRN #20 tab PRN Reason: Pain Scale 8-10 (Severe) Famotidine [Pepcid*] 20 mg PO DAILY #30 tab Albuterol Neb [Proventil 0.083% Neb Soln] 2.5 mg NEB [id number] PRN #60 amp PRN Reason: Shortness Of Breath Physician Discharge Instructions: -DC IV and DC home -Follow-up with PCP in 1 to 2 weeks -Follow-up with Pulmonary in 1 to 2 weeks -Please call Dr. Castorena at [phone] if any questions regarding hospital stay -Please call nursing station at [phone] if any nursing or medication questions -Return to the emergency room if symptoms worsen Diet: AHA Activity: Fall precautions Followup: Adalid Morales MD [ACTIVE - CAN ADMIT] - 1-2 Weeks (Call for appointment.) Sofía Calvo MD [Primary Care Provider] - 1-2 Weeks (Call for appointment.) Time spent managing pt's care (in minutes): 35
== END 2024-05-23 14:32 | disposition home or self-care (01) ==
LOC: ER 05:02 → ERHOLD 11:56 → 4TH 17:34
PROVIDERS: ADMIT Hospitalist; ATTEND Hospitalist
DX: J20.9 Acute bronchitis, unspecified (principal); J44.89 Other specified chronic obstructive pulmonary disease; J15.8 Pneumonia due to other specified bacteria; J84.10 Pulmonary fibrosis, unspecified; S22.41XA Multiple fractures of ribs, right side, initial encounter for closed fracture; R09.02 Hypoxemia; R07.81 Pleurodynia; R53.1 Weakness; R06.02 Shortness of breath; R05.1 Acute cough; I10 Essential (primary) hypertension; W19.XXXA Unspecified fall, initial encounter; Z79.01 Long term (current) use of anticoagulants; Z87.891 Personal history of nicotine dependence; Z86.711 Personal history of pulmonary embolism
CPT/HCPCS: 93005; 87040 ×2; 85025 ×2; 80048; 36415 ×2; 83735; 85610 ×2; 80076; 83605; 85730 ×2; 84484; 80053; 83880; 70492; 71275; 97161; 94640 ×2; Q9967 ×2; Q2035; J7613 ×2; J7644 ×2; J2270 ×5; J2405 ×2; 99285; G0378

== ENCOUNTER 2024-07-11 10:32 | Emergency (ER) | payer OTHER ==
[2024-07-11] MEDS ORDERED: ONDANSETRON 4 MG/2 ML VIAL ONE (11:39)
[2024-07-11] MEDS ORDERED: NA CHLORIDE 0.9% 1,000 ML ONE (11:39)
[2024-07-11] MEDS ORDERED: MORPHINE 4 MG/ML SYR ONE ×2 (11:39→12:39)
[2024-07-11 11:45] LABS: Absolute Basophils 0.1 K/uL (0-0.5); Absolute Eosinophils 0.1 K/uL (0-0.5); Absolute Lymphocytes (CBC) 1.3 K/uL (0.7-4.9); Absolute Monocytes 0.8 K/uL (0.1-1.3); Absolute Neutrophil 6.6 K/uL (1.8-8.0); Basophils % 0.8 % (0-1.3); Eosinophils % 1.3 % (0-4.4); Hematocrit 47.1 % (39.6-49.0); Lymphocytes % 15.2 % (15.3-44.8); MCH 32.7 pg (27.0-35.0); MCV 96.1 fL (80-100); MPV 6.8 fL (7.6-11.3); Monocytes % 8.9 % (3.3-12.3); Neutrophils % 73.8 % (41.7-73.7); Platelets 242 thou/uL (152-406); RBC Red Blood Cell Count 4.91 M/uL (4.33-5.43); Red Cell Distribution Width 16.2 % (12.1-15.2)
[2024-07-11 12:07] LABS: Albumin 3.4 g/dL (3.4-5.0); Albumin/Globulin Ratio 0.8 (1.1-1.8); Anion Gap 5.5 mEq/L (5.0-15.0); Bilirubin Total 0.8 mg/dL (0.2-1.0); Globulin 4.5 g/dL (2.3-3.5); Potassium 3.5 mEq/L (3.5-5.1); Protein, Total 7.9 g/dL (6.4-8.2)
--- NOTE | 2024-07-11 13:29 | RAD REPORT ---
EXAMINATION: CT ABDOMEN AND PELVIS WITH CONTRAST CLINICAL INDICATION: Abdominal pain TECHNIQUE: CT abdomen and pelvis was performed, after the administration of 100 cc Isovue-300.. Sagit christine and coronal reconstructions were obtained. One or more of the following dose reduction techniques were used: Automated exposure control, adjustment of the mA and kV according to patient si ze, and iterative reconstruction. Unless otherwise specified, incidental findings do not require dedicated imaging follow-up. [id number]. Oral contrast was not given which limits evaluation of bowel and appendix. COMPARISON: none FINDINGS: Fatty liver , The spleen, pancreas, adrenals and kidneys appear unremarkable No evidence of diverticulitis. Normal appendix Normal small bowel caliber. 2 screws fuse the SI joints. A lucency is present within the inferior screw. It is uncertain if this is a fracture or if to screws were placed inferiorly. It is unchanged from prior exams. : IMPRESSION: Fatty liver No acute abnormality displayed
--- NOTE | 2024-07-11 14:28 | ER ---
Nurse's Notes [facility] Name: Dwayne Walker Jr Age: 54 yrs Sex: Male : 1970 Arrival Date: 07/11/2024 Time: 10:32 Bed 20 Private MD: Diagnosis: Abdominal pain, unspecified Presentation: 07/11 11:02 Chief complaint: Patient states: Patient states he has had abd pain starting Tuesday le1 with brown emesis x2 on Tuesday and x1 on Tuesday khalida with diarrhea. States the last time he has had abd pain it was due to him being 6 days backed up with poop. States he took his lisinopril and Xarelto this morning. Coronavirus screen: Vaccine status: Patient reports receiving the 2nd dose of the covid vaccine. Patient reports receiving the 1st dose of the Covid vaccine. At this time, the client does not indicate any symptoms associated with coronavirus-19. Ebola Screen: Patient negative for fever greater than or equal to 101.5 degrees Fahrenheit, and additional compatible Ebola Virus Disease symptoms. Initial Sepsis Screen: Does the patient meet any 2 criteria? No. Patient's initial sepsis screen is negative. Does the patient have a suspected source of infection? No. Patient's initial sepsis screen is negative. Risk Assessment: Do you want to hurt yourself or someone else? Patient reports no desire to harm self or others. Onset of symptoms was July 08, 2024. 11:02 Method Of Arrival: EMS: [facility] le1 11:02 Acuity: FÉLIX 2 le1 Triage Assessment: 11:09 General: Appears in no apparent distress. comfortable, Behavior is calm, cooperative, le1 appropriate for age. Pain: Complains of pain in abdomen Pain currently is 8 out of 10 on a pain scale. Quality of pain is described as aching. EENT: No deficits noted. Neuro: No deficits noted. Cardiovascular: No deficits noted. Respiratory: No deficits noted. GI: Reports lower abdominal pain, upper abdominal pain, bloating, diarrhea, nausea, vomiting, since 07/08/24. : No deficits noted. Historical: - Home Meds: 11:06 hydrocodone-acetaminophen 7.5-325 mg Oral tablet for pain [Active]; lisinopril 40 mg le1 Oral tablet (Last Dose: 07/11/2024) [Active]; Xarelto 20 mg Oral tablet (Last Dose: 07/11/2024) [Active]; Zoloft 100 mg Oral tablet [Active]; - PMHx: 11:06 Anxiety; Borderline Diabetes; bowl obstruction (Umbilical hernia); DVT; Enlarged Heart le1 (Umbilical hernia); HEP C; Hypertension; Major Depressive Disorder; Pulmonary Embolism; Umbilical hernia; - Immunization history:: Client reports receiving the 2nd dose of the Covid vaccine, Client reports receiving the 1st dose of the Covid vaccine, Flu vaccine is not up to date. It has been more than one year since last vaccine. - Infectious Disease History:: Denies. - Social history:: Smoking status: Reported history of juuling and/or vaping. Patient uses alcohol, occasionally. - Family history:: not pertinent. - Hospitalizations: : No recent hospitalization is reported. Screenin:11 [facility] ED Fall Risk Assessment (Adult) History of falling in the last 3 months, le1 including since admission No falls in past 3 months (0 pts) Confusion or Disorientation No (0 pts) Intoxicated or Sedated No (0 pts) Impaired Gait No (0 pts) Mobility Assist Device Used No (0 pt) Altered Elimination No (0 pt) Score/Fall Risk Level 0 - 2 = Low Risk Oriented to surroundings, Maintained a safe environment, Educated pt \T\ family on fall prevention, incl call for assistance when getting out of bed, Assessed \T\ reinforced patient's understanding of fall precautions, Hourly rounding (assess needs \T\ fall precautionary measures) done. Abuse screen: Denies threats or abuse. Nutritional screening: No deficits noted. Tuberculosis screening: No symptoms or risk factors identified. Assessment: 11:11 General: Refer to triage assessment. le1 Vital Signs: 11:02 BP 160 / 106; Pulse 88; Resp 25; Temp 98.4(O); Pulse Ox 98% ; Pain 8/10; le1 11:13 BP 162 / 97; Pulse 91; Resp 29; Pulse Ox 97% on R/A; Pain 8/10; le1 13:25 BP 163 / 101; Pulse 75; Resp 19; Pulse Ox 95% on R/A; Pain 8/10; le1 15:00 BP 173 / 103; Pulse 72; Resp 15; Temp 98.4; Pulse Ox 96% on R/A; Pain 4/10; le1 11:02 Pain Scale: Adult le1 11:13 Pain Scale: Adult le1 13:25 Pain Scale: Adult le1 15:00 Pain Scale: Adult le1 ED Course: 10:36 Patient arrived in ED. bd 10:38 Carlos Escoto MD is Attending Physician. rn 10:46 Arm band placed on Patient placed in an exam room, on a stretcher. ll1 10:49 Octaviano Mccauley, RN is Primary Nurse. le1 11:06 Triage completed. le1 11:12 Patient has correct armband on for positive identification. Placed in gown. Bed in low le1 position. Call light in reach. Side rails up X2. Provided Education on: Informed patient to use call light when needing assistance. 11:24 Radiology exam delayed due to lab results not completed at this time. (BUN/Creatinine). ls3 11:24 Radiology exam delayed due to IV insertion attempt and/or patient not having ls3 appropriate IV at this time. 11:41 Initial lab(s) drawn, by me, sent to lab. Inserted saline lock: 20 gauge in right le1 antecubital area, using aseptic technique. Blood collected. Flushed with 10 mL NS. 12:58 CT Abd/Pelvis - IV Contrast Only In Process Unspecified. EDMS 15:00 No provider procedures requiring assistance completed. IV discontinued, intact, le1 bleeding controlled, No redness/swelling at site. Pressure dressing applied. Administered Medications: 11:40 Drug: Ondansetron IVP 4 mg IVP once; over 2 minutes Route: IVP; Site: right antecubital;le1 12:35 Follow up: Response: Nausea is decreased le1 11:40 Drug: NS 0.9% IV 1000 ml IV at 1 bolus Per protocol; to be given as a bolus over 60 le1 minutes Route: IV; Rate: 1 bolus; Site: right antecubital; 13:24 Follow up: IV Status: Completed infusion le1 11:40 Drug: morphine IVP or IV 4 mg IVP once over 4 mins Route: IVP; Infused Over: 4 mins; le1 Site: right antecubital; 12:35 Follow up: Response: Pain is unchanged, physician notified le1 12:40 Drug: morphine IVP or IV 4 mg IVP once over 4 mins Route: IVP; Infused Over: 4 mins; le1 Site: right forearm; 13:24 Follow up: Response: Pain is unchanged, physician notified le1 14:51 Drug: Ciprofloxacin PO 500 mg PO once Route: PO; le1 15:34 Follow up: Response: No adverse reaction le1 14:51 Drug: metroNIDAZOLE PO 500 mg PO once Route: PO; le1 15:33 Follow up: Response: No adverse reaction le1 Medication: 11:12 VIS not applicable for this client. le1 Outcome: 14:28 Discharge ordered by . rn 15:00 Condition: stable le1 15:00 Discharged to home ambulatory, le1 15:00 Discharge instructions given to patient, Instructed on discharge instructions, follow up and referral plans. medication usage, Demonstrated understanding of instructions, follow-up care, medications, Prescriptions given X 4, 15:34 Patient left the ED. le1 Signatures: Dispatcher [employer] EDMS Corazon Deal Roman, MD MD rn Siler, Lynzie ls3 Chandler Arita RN RN ll1 Octaviano Mccauley RN RN le1
--- NOTE | 2024-07-11 14:28 | EDPHYS ---
Physician Documentation [facility] Name: Dwayne Walker Jr Age: 54 yrs Sex: Male : 1970 Arrival Date: 07/11/2024 Time: 10:32 Bed 20 Private MD: ED Physician Carlos Escoto HPI: 07/11 11:11 This 54 yrs old Male presents to ER via EMS with complaints of abdominal pain. rn 11:11 The patient presents with abdominal pain that is diffuse. Onset: The symptoms/episode rn began/occurred yesterday. The symptoms do not radiate. Associated signs and symptoms: Pertinent positives: nausea and vomiting, diarrhea, Pertinent negatives: blood in stools, fever. Modifying factors: The symptoms are alleviated by nothing, the symptoms are aggravated by touching the area. Severity of pain: At its worst the pain was moderate in the emergency department the pain is unchanged. The patient has not experienced similar symptoms in the past. 11:11 Patient states feels different than when he had his bowel obstruction somewhat recently.rn Historical: - Home Meds: 11:06 hydrocodone-acetaminophen 7.5-325 mg Oral tablet for pain [Active]; lisinopril 40 mg le1 Oral tablet (Last Dose: 07/11/2024) [Active]; Xarelto 20 mg Oral tablet (Last Dose: 07/11/2024) [Active]; Zoloft 100 mg Oral tablet [Active]; - PMHx: 11:06 Anxiety; Borderline Diabetes; bowl obstruction (Umbilical hernia); DVT; Enlarged Heart le1 (Umbilical hernia); HEP C; Hypertension; Major Depressive Disorder; Pulmonary Embolism; Umbilical hernia; - Immunization history:: Client reports receiving the 2nd dose of the Covid vaccine, Client reports receiving the 1st dose of the Covid vaccine, Flu vaccine is not up to date. It has been more than one year since last vaccine. - Infectious Disease History:: Denies. - Social history:: Smoking status: Reported history of juuling and/or vaping. Patient uses alcohol, occasionally. - Family history:: not pertinent. - Hospitalizations: : No recent hospitalization is reported. ROS: 11:11 Constitutional: Negative for fever, chills, and weight loss, Cardiovascular: Negative rn for chest pain, palpitations, and edema, Respiratory: Negative for shortness of breath, cough, wheezing, and pleuritic chest pain, Abdomen/GI: Positive for abdominal pain with nausea/vomiting/diarrhea Back: Negative for injury and pain, MS/Extremity: Negative for injury and deformity, Skin: Negative for injury, rash, and discoloration, Neuro: Negative for headache, weakness, numbness, tingling, and seizure, Exam: 11:11 Constitutional: This is a well developed, well nourished patient who is awake, alert, rn and in no acute distress. Cardiovascular: Regular rate and rhythm. No pulse deficits. Respiratory: Mild tachypnea, speaking full sentences Abdomen/GI: Soft, tender in all 4 quadrants. Tympanitic left upper quadrant Vital Signs: 11:02 BP 160 / 106; Pulse 88; Resp 25; Temp 98.4(O); Pulse Ox 98% ; Pain 8/10; le1 11:13 BP 162 / 97; Pulse 91; Resp 29; Pulse Ox 97% on R/A; Pain 8/10; le1 13:25 BP 163 / 101; Pulse 75; Resp 19; Pulse Ox 95% on R/A; Pain 8/10; le1 15:00 BP 173 / 103; Pulse 72; Resp 15; Temp 98.4; Pulse Ox 96% on R/A; Pain 4/10; le1 11:02 Pain Scale: Adult le1 11:13 Pain Scale: Adult le1 13:25 Pain Scale: Adult le1 15:00 Pain Scale: Adult le1 MDM: 10:38 Medical Screening Exam initiated rn 14:27 Differential diagnosis: appendicitis, bowel obstruction, diverticulitis, gastritis, rn non-specific abd pain, pancreatitis, Peptic Ulcer Disease, Perf. Duodenal Ulcer, Perf. Gastric Ulcer, Colitis. Data reviewed: vital signs, nurses notes, lab test result(s), radiologic studies, CT scan, and as a result, I will discharge patient. Counseling: I had a detailed discussion with the patient and/or guardian regarding the historical points, exam findings, and any diagnostic results supporting the discharge/admit diagnosis, lab results, radiology results, the need for outpatient follow up, to return to the emergency department if symptoms worsen or persist or if there are any questions or concerns that arise at home. Special discussion: Based on the patient's Hx, exam, and Dx evaluation, there is no indication for emergent surgery or inpatient Tx. It is understood by the patient/guardian that if the Sx's persist or worsen they need to return immediately for re-evaluation. I discussed with the patient/guardian in detail that at this point there is no indication for admission to the hospital. It is understood, however, that if the symptoms persist or worsen the patient needs to return immediately for re-evaluation. ED course: No acute findings and workup today. Clinically patient is a colitis. Will discharge home with antibiotics, pain medication and return precautions.. 07/11 10:44 Order name: CBC with Diff; Complete Time: 12:13 rn 07/11 10:44 Order name: CMP; Complete Time: 12: rn 07/11 10:44 Order name: Lipase; Complete Time: 12: rn 07/11 10:44 Order name: CT Abd/Pelvis - IV Contrast Only; Complete Time: 14:07 rn 07/11 10:44 Order name: IV Saline Lock; Complete Time: 11:35 rn 07/11 10:44 Order name: Labs collected and sent; Complete Time: 11:35 rn Administered Medications: 11:40 Drug: Ondansetron IVP 4 mg IVP once; over 2 minutes Route: IVP; Site: right antecubital;le1 12:35 Follow up: Response: Nausea is decreased le1 11:40 Drug: NS 0.9% IV 1000 ml IV at 1 bolus Per protocol; to be given as a bolus over 60 le1 minutes Route: IV; Rate: 1 bolus; Site: right antecubital; 13:24 Follow up: IV Status: Completed infusion le1 11:40 Drug: morphine IVP or IV 4 mg IVP once over 4 mins Route: IVP; Infused Over: 4 mins; le1 Site: right antecubital; 12:35 Follow up: Response: Pain is unchanged, physician notified le1 12:40 Drug: morphine IVP or IV 4 mg IVP once over 4 mins Route: IVP; Infused Over: 4 mins; le1 Site: right forearm; 13:24 Follow up: Response: Pain is unchanged, physician notified le1 14:51 Drug: Ciprofloxacin PO 500 mg PO once Route: PO; le1 15:34 Follow up: Response: No adverse reaction le1 14:51 Drug: metroNIDAZOLE PO 500 mg PO once Route: PO; le1 15:33 Follow up: Response: No adverse reaction le1 Disposition Summary: 07/11/24 14:28 Discharge Ordered Notes: Location: Home rn Problem: new rn Symptoms: have improved rn Condition: Stable rn Diagnosis - Abdominal pain, unspecified rn Followup: rn - With: Private Physician - When: As needed - Reason: Recheck today's complaints, Re-evaluation by your physician Discharge Instructions: - Discharge Summary Sheet rn - Abdominal Pain, Adult rn Forms: - Medication Reconciliation Form rn - Antibiotic rn licensed practical - Prescription Opioid Use rn - Patient Portal Instructions rn - Leadership Thank You Letter rn Prescriptions: - ondansetron 4 mg Oral Tablet,disintegrating - take 1 tablet ORAL route every 8 hours As needed; 12 tablet; Refills: 0, rn Product Selection Permitted - Flagyl 500 mg Oral tablet - take 1 tablet ORAL route every 12 hours for 10 days; 20 tablet; Refills: 0, rn Product Selection Permitted - Cipro 500 mg Oral tablet - take 1 tablet ORAL route every 12 hours for 10 days; 20 tablet; Refills: 0, rn Product Selection Permitted - Tramadol 50 mg Oral Tablet - take 1 tablet ORAL route every 8 hours as needed; 12 tablet; Refills: 0, rn Product Selection Permitted Signatures: Dispatcher [employer] Carlos Wilkerson MD MD rn Octaviano Mccauley RN RN le1 Corrections: (The following items were deleted from the chart) 10:44 10:44 Abdomen Pelvis W [id number] ordered. [facility]
[2024-07-11] MEDS ORDERED: CIPROFLOXACIN HCL 500 MG TAB ONE (14:50)
[2024-07-11] MEDS ORDERED: metroNIDAZOLE 500 MG TABLET ONE (14:50)
[2024-07-11 15:43] VITALS: TEMP 98.4
[2024-07-11 16:00] VITALS: BP 173/103; O2SAT 96
== END 2024-07-11 15:34 | disposition home or self-care (01) ==
LOC: ER 10:32
DX: R10.9 Unspecified abdominal pain (principal); R11.2 Nausea with vomiting, unspecified; R19.7 Diarrhea, unspecified; I10 Essential (primary) hypertension; F41.9 Anxiety disorder, unspecified; Z86.718 Personal history of other venous thrombosis and embolism; Z79.01 Long term (current) use of anticoagulants
CPT/HCPCS: 85025; 36415; 83690; 80053; 74177; Q9967; J2405; J7030